=== PATIENT | female | born 1945 ===

== ENCOUNTER 2020-08-27 09:10 | Outpatient (REF) | payer OTHER, SELFPAY ==
[2020-08-27 10:49] LABS: Glucose Urine UA NEG (NEG); Leukocyte Esterase Urine NEG (NEG); Nitrite Urine NEG (NEG); PH 7.5 (5.0-8.0); Urine Blood NEG (NEG); Urine Ketones NEG (NEG); Urine Protein NEG (NEG-TRACE)
[2020-08-27 10:53] LABS: Appearance Urine CLEAR; Color Urine YELLOW; Creatinine Urine 15.82 mg/dL; Microalbumin Urine < 5.0 mg/L; UACC CULT NO; UACC Culture Trigger NO
[2020-08-27 10:56] LABS: Alanine Aminotransferase 21 U/L (0-31); Albumin Level 4.3 g/dL (3.5-5.0); Alkaline Phosphatase 69 U/L (39-117); Anion Gap 12 (12-20); Aspartate Amino Transferase 20 U/L (5-31); Bilirubin Total 0.8 mg/dL (0.0-1.0); Blood Urea Nitrogen 15 mg/dL (9-16); Calcium 9.3 mg/dL (8.4-10.2); Carbon Dioxide 29 mmol/L (22-29); Chloride 101 mmol/L (96-108); Cholesterol 138 mg/dL; Estimated Glomerular Filt Rate 49; Glucose Fasting 113 mg/dL (60-99); HDL Cholesterol 65 mg/dL; LDL Cholesterol Calculated 59 mg/dl; Potassium 5.4 mmol/l (3.3-5.1); Sodium 137 mmol/L (135-145); Total Protein 7.1 g/dL (6.5-8.0); Triglycerides 70 mg/dL
[2020-08-27 11:05] LABS: RBC Urine 0 /HPF (0); WBC Urine 0 /HPF (0-4)
[2020-08-27 11:17] LABS: TSH reflex Free T4 2.02 mIU/mL (0.32-4.0)
== END 2020-08-27 09:11 | disposition home or self-care (01) ==
LOC: HO.LNP 09:10
PROVIDERS: Visit Provider Internal Medicine
DX: E78.00 Pure hypercholesterolemia, unspecified (principal); I10 Essential (primary) hypertension; E11.9 Type 2 diabetes mellitus without complications; I42.9 Cardiomyopathy, unspecified; I87.303 Chronic venous hypertension (idiopathic) without complications of bilateral lower extremity; I70.1 Atherosclerosis of renal artery; I87.2 Venous insufficiency (chronic) (peripheral); E66.9 Obesity, unspecified
CPT/HCPCS: 36415; 80053; 80061; 81001; 82043; 83036; 83880; 84443; 85025

== ENCOUNTER 2020-11-23 07:31 | Outpatient (REF) | payer OTHER, SELFPAY ==
[2020-11-23 08:41] LABS: Basophils Percent Auto 0.5 % (0-2); Eosinophils Percent Auto 0.2 % (0-4); Glucose Urine UA NEG (NEG); Hematocrit 35.7 % (37-47); Hemoglobin 11.5 g/dl (12.0-16.0); Imm Gran Abs Auto 0.05 X10*3/uL (0.00-0.03); Imm Gran Pct Auto 1.2 % (0.0-0.4); Leukocyte Esterase Urine NEG (NEG); Lymphocytes Absolute Auto 0.9 X10*3/uL (1.2-4.9); Lymphocytes Percent Auto 22.2 % (20-40); MANUAL DIFF FLAG SCAN; Mean Corpuscular HGB Conc 32.2 g/dl (31.0-35.0); Mean Corpuscular Volume 89.9 fL (80-98); Mean Platelet Volume 10.8 fL (9.4-12.3); Monocytes Absolute Auto 0.4 X10*3/uL (0.1-1.2); Monocytes Percent Auto 10.2 % (2-11); Neutrophils Absolute Auto 2.8 X10*3/uL (2.0-8.3); Neutrophils Percent Auto 65.7 % (45-73); Nitrite Urine NEG (NEG); Platelet Count 285 X10*3/uL (160-400); Red Blood Count 3.97 X10*6/uL (4.20-5.50); Red Cell Distribution Width 14.8 % (11.0-16.0); SCAN SMEAR FLAG 1; Urine Blood TRACE (NEG); Urine Ketones NEG (NEG); Urine Protein TRACE MG/DL (NEG-TRACE); White Blood Count 4.2 X10*3/uL (4.8-10.8)
[2020-11-23 08:44] LABS: Appearance Urine HAZY; Color Urine YELLOW
[2020-11-23 09:00] LABS: Bacteria Urine TRACE /LPF; Hyaline Casts Urine 0-2 /LPF; Mucus Urine 1+ /LPF; RBC Urine 0-2 /HPF (0); Squamous Epithelial Cell Urine 1+ /LPF
[2020-11-23 09:04] LABS: Alanine Aminotransferase 39 U/L (0-31); Alkaline Phosphatase 74 U/L (39-117); Anion Gap 15 (12-20); Aspartate Amino Transferase 36 U/L (5-31); Bilirubin Total 1.2 mg/dL (0.0-1.0); Blood Urea Nitrogen 20 mg/dL (9-16); Calcium 9.2 mg/dL (8.4-10.2); Carbon Dioxide 26 mmol/L (22-29); Chloride 99 mmol/L (96-108); Cholesterol 116 mg/dL; Estimated Glomerular Filt Rate 50; Glucose Fasting 120 mg/dL (60-99); HDL Cholesterol 47 mg/dL; LDL Cholesterol Calculated 53 mg/dl; Potassium 5.2 mmol/L (3.3-5.1); Sodium 135 mmol/L (135-145); Total Protein 7.1 g/dL (6.5-8.0); Triglycerides 81 mg/dL
[2020-11-23 09:07] LABS: Anion Gap 14 (12-20); Blood Urea Nitrogen 20 mg/dL (9-16); Calcium 9.2 mg/dL (8.4-10.2); Carbon Dioxide 26 mmol/L (22-29); Chloride 99 mmol/L (96-108); Estimated Glomerular Filt Rate 49; Phosphorus 3.4 mg/dL (2.7-4.5); Potassium 5.4 mmol/L (3.3-5.1); Sodium 134 mmol/L (135-145)
[2020-11-23 09:08] LABS: B Type Natriuretic Peptide 66 pg/mL (<100); Microalbum/Creatinine Ratio Ur 49.1 ug/mg cr
[2020-11-23 09:28] LABS: TSH reflex Free T4 1.92 uIU/mL (0.32-4.0)
[2020-11-23 09:29] LABS: SLIDE REVIEW VERIFIED
[2020-11-23 10:36] LABS: Renal w Reflex Lab Use Only Order verified
== END 2020-11-23 07:32 | disposition home or self-care (01) ==
LOC: HO.LAB 07:31
PROVIDERS: PCP Internal Medicine; Referring Provider Internal Medicine Nephrology; Visit Provider Internal Medicine
DX: I10 Essential (primary) hypertension (principal); E87.5 Hyperkalemia; I70.1 Atherosclerosis of renal artery; R60.9 Edema, unspecified; E11.9 Type 2 diabetes mellitus without complications; I87.303 Chronic venous hypertension (idiopathic) without complications of bilateral lower extremity; I87.2 Venous insufficiency (chronic) (peripheral); I42.9 Cardiomyopathy, unspecified; E78.00 Pure hypercholesterolemia, unspecified; E66.9 Obesity, unspecified
CPT/HCPCS: 36415; 80051; 80053; 80061; 81001; 82043; 82310; 82565; 83880; 84100; 84443; 84520; 85025

== ENCOUNTER 2020-11-27 09:52 | Emergency (ER) | payer OTHER, SELFPAY ==
--- NOTE | ~2020-11-27 | CT_ITS ---
EXAMINATION: CT ABDOMEN AND PELVIS WITH CONTRAST CLINICAL INFORMATION: Left-sided abdominal pain. Diarrhea. COMPARISON: CTA 04/17/2019 TECHNIQUE: Multidetector volumetric images were obtained from the superior aspect of the liver through the pubic symphysis following administration 85 mL of Omnipaque 350 intravenous contrast. Sagittal and coronal reformatted images were obtained on the technologist's workstation. Oral contrast: No This CT examination was performed using dose optimization techniques as appropriate, variously including the following: *Automated exposure control *Adjustment of mA and/or kV according to patient size (this includes techniques or standardized protocols for targeted exams where dose is matched to indication/reason for exam; i.e. extremities or head) *Use of iterative reconstruction technique DLP: 686 mGy-cm FINDINGS: LUNG BASES: Multifocal patchy and nodular groundglass opacities and areas of consolidation consistent with pneumonia. Atypical/viral pneumonia is a concern. Coronary artery disease. Biopsy clips in the left breast. LIVER, GALLBLADDER, AND BILIARY TREE: Stable small cysts and granulomata. Status post cholecystectomy. Stable postoperative prominence of the common duct. No intrahepatic biliary ductal dilation. PANCREAS: Uniform pancreatic enhancement without ductal dilation, mass or inflammation. SPLEEN: Small stable accessory spleens again noted. ADRENAL GLANDS: There is a stable 2.2 cm left adrenal mass with enhancement. The right adrenal gland is normal. KIDNEYS AND URETERS: Stable prominence of the renal pelves and ureters bilaterally. Stable minor fullness of the right intrarenal collecting structures. Suspect reflux with distended bladder. No calculi. The kidneys are symmetrically functioning. Subcentimeter hypodensities most consistent with cysts and unchanged. Mild left renal cortical atrophy again noted, likely renal vascular in etiology. Stable minor perinephric fat stranding without collection. BLADDER: The bladder is distended with urine but otherwise unremarkable. The distal ureters are normal in appearance. GASTROINTESTINAL TRACT: There is mild sigmoid predominant left-sided diverticulosis. No evidence for diverticulitis. No acute colitis seen. Normal appendix in the right lower quadrant. Normal terminal ileum. Nonobstructive gas pattern. Normal stomach and esophagus. No free peritoneal air. No free fluid. ABDOMINAL WALL: Mild midline eventration without hernia. Injection granulomata in the flanks. LYMPH NODES: Normal. VASCULAR: There is a 2.5 cm anterior infrarenal abdominal aortic aneurysm. This is slightly increased in size compared with 2019, measuring just under 3 cm in length. There is increased thrombosis of this saccular aneurysm. The celiac, SMA and MIS all appear to enhance normally. No rich peritoneal hemorrhage seen. PELVIC VISCERA: Stable retroversion of the uterus. No adnexal mass. Coarse calcification again seen in the right ovary. Probable uterine fundal fibroid. No pelvic free fluid or lymphadenopathy. OSSEOUS STRUCTURES: Patchy demineralization. No acute osseous abnormality. Degenerative changes in the spine. CT/CT abdomen pelvis w con IMPRESSION: Multifocal ill-defined groundglass and consolidative opacities in the periphery of the lower lungs consistent with atypical/viral pneumonia. By report the patient is COVID positive. Left diverticulosis without diverticulitis. Chronic mild left renal atrophy without hydronephrosis. Chronic bilateral mild ureteral and pelvic prominence without progression. Suspect that reflux given distended bladder. Slight increase in size of saccular infrarenal abdominal aortic aneurysm, now measuring 2.5 cm in sagittal dimension, with increasing thrombosis. Mesenteric vessels appear to enhance normally. No rich cranial hemorrhage. Fibroid uterus. Cholecystectomy. This critical result was discussed with Dr. Monzon at 3:40 PM on 11/27/2020 and it was ascertained that the content and urgency of the report was understood at the time of direct communication.
[2020-11-27 09:56] VITALS: BP 189/86; PULSE 98; RESP 18; TEMP 36.1; O2SAT 98; BMI 33.4
--- NOTE | 2020-11-27 10:15 | ED.NAVMDI ---
HPI - Nausea/Vomiting/Diarrhea General Chief complaint: Nausea/Vomiting/Diarrhea Stated complaint: L UPPER ABD PAIN Time Seen by Provider: 11/27/20 10:07 Source: patient and EMS Mode of arrival: EMS Limitations: no limitations History of Present Illness HPI Narrative: 75 yo female with hx of DM, HPL, cardiomyopathy, long standing GI illness comes to ED today with epigastric and LUQ pain x 9 days with 4 to 6 loose mucousy stools per day, all started after her [employer] cooked her a meal, denies recent antibiotics, no prior episodes per the patient MD elicited complaint: diarrhea and abdominal pain Onset (ago): day(s) (9) Associated nausea: No Associated abdominal pain: Yes Location of pain: epigastric and LUQ Pain consistency: intermittent and colicky Severity: moderate Quality: cramping Exacerbating factors: eating Relieving factors: none Context: possible food poisoning Associated symptoms: loss of appetite and malaise Treatment prior to arrival: other (tried myl[place]) Related Data Home Medications Medication Instructions Recorded Confirmed acetaminophen 500 mg tablet 500 mg PO .TWICE A DAY PRN tab 08/16/20 09/19/20 alprazolam 0.5 mg tablet 0.5 mg PO BID PRN 08/16/20 09/19/20 aluminum-mag hydroxide-simethicone 10 ml PO ONCE PRN ml 08/16/20 09/19/20 200 mg-200 mg-20 mg/5 mL oral susp atorvastatin 80 mg tablet 80 mg PO DAILY 08/16/20 09/19/20 buspirone 7.5 mg tablet 7.5 mg PO DAILY 08/16/20 09/19/20 metformin 500 mg tablet mg PO 08/16/20 09/19/20 nystatin 100,000 unit/gram topical TOPICAL 08/16/20 09/19/20 powder sennosides 8.6 mg tablet 17.2 mg PO DAILY 08/16/20 09/19/20 lancets 33 gauge #100 ea 08/31/20 08/31/20 carvedilol 12.5 mg tablet 12.5 mg PO BID 09/20/20 chlorthalidone 25 mg tablet 25 mg PO QAM 10/26/20 Previous Rx's Medication Instructions Recorded blood sugar diagnostic #100 ea 08/10/20 carvedilol 6.25 mg tablet 6.25 mg PO BID #60 tab 10/24/20 pantoprazole 40 mg tablet,delayed 40 mg PO DAILY #90 tab 10/24/20 release losartan 100 mg tablet 100 mg PO DAILY #90 tab 11/01/20 clotrimazole-betamethasone 1 1 appl TOPICAL BID PRN #30 g 11/12/20 %-0.05 % topical cream rosuvastatin 40 mg tablet 40 mg PO DAILY #30 tab 11/23/20 sitagliptin 100 mg tablet 100 mg PO DAILY #90 tab 11/24/20 dexamethasone 6 mg PO DAILY 5 Days #5 tab 11/27/20 ondansetron 4 mg PO Q8H PRN #20 tab 11/27/20 Allergies Allergy/AdvReac Type Severity Reaction Status Date / Time aspirin [Aspirin] Allergy Severe MOUTH Verified 10/26/20 15:24 SWELLING hydrochlorothiazide Allergy Intermediate DROP IN Verified 10/26/20 15:24 [Hydrochlorothiazide] BLOOD PRESSURE Penicillins [PENICILLINS] Allergy Intermediate ITCHING Verified 10/26/20 15:24 caffeine [Caffeine] Allergy Mild NERVOUSNESS Verified 10/26/20 15:24 lisinopril [Lisinopril] Allergy Mild CHANGES IN Verified 10/26/20 15:24 BLOOD PRESSURE ranitidine [RANITIDINE] Allergy Mild HEADACHE Verified 10/26/20 15:24 amlodipine [AMLODIPINE] Allergy Unknown UNKNOWN Verified 10/26/20 15:24 amoxicillin Allergy Unknown itching, Verified 10/26/20 15:24 severe with rash diclofenac Allergy Unknown Unknown Verified 10/26/20 15:24 escitalopram Allergy Unknown abdominal Verified 10/26/20 15:24 discomfort, drowsiness esomeprazole [Nexium] Allergy Unknown Unknown Verified 10/26/20 15:24 isosorbide [ISOSORBIDE] Allergy Unknown UNKNOWN Verified 10/26/20 15:24 lidocaine [Lidoderm] Allergy Unknown weakness Verified 10/26/20 15:24 mirtazapine Allergy Unknown Unknown Verified 10/26/20 15:24 nystatin Allergy Unknown rash Verified 10/26/20 15:24 penicillin V Allergy Unknown Itching, Verified 10/26/20 15:24 rash all over body sertraline [SERTRALINE] Allergy Unknown UNKNOWN Verified 10/26/20 15:24 dexlansoprazole AdvReac Severe AGITATION Verified 10/26/20 15:24 [From DEXILANT] hydrocortisone AdvReac Mild RAISES Verified 10/26/20 15:24 [From Cortizone-10] BLOOD SUGAR topiramate [From TOPAMAX] AdvReac Unknown AGITATION Verified 10/26/20 15:24 DEXITANT Allergy Unknown CHEST PAIN Uncoded 08/31/20 11:27 From PLAVIX Allergy Unknown PT UNSURE Uncoded 08/31/20 11:27 OF REACTION Medical tape Allergy Unknown Rash Uncoded 08/31/20 11:27 Review of Systems Review of Systems: Constitutional : No Weight loss, No Fever, No Chills ENT/Mouth : No sore throat, No Rhinorrhea Eyes: No Swelling, No Redness Cardiovascular : No Chest Pain, No SOB, NoEdema Respiratory : No Cough, No Sputum, No Wheezing Gastrointestinal : Positive Nausea, no Vomiting, positive Diarrhea, positive abdominal Pain, No Hematochezia, No Melena Genitourinary : No Dysuria, No Urinary Frequency, No Hematuria, No Urgency Musculoskeletal : No joint pain, No Myalgias, No Joint Swelling Skin : No Skin Lesions, No rash Neuro : No Weakness, No Numbness, No Dizziness, No Headache Psych : No Anxiety/Panic, No Depression Heme/Lymph: No Bruising, No Lymphadenopathy Endocrine : No Polyuria, No Polydipsia All other systems reviewed and are negative. Gastrointestinal: Gastrointestinal: Denies nausea PMFSH Past Medical History Attestation statement: The following information was validated with the patient. Medical History Anxiety Benign essential hypertension Cardiomyopathy Conjunctival hemorrhage of right eye Depression 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 Hyperkalemia Obesity (BMI 30-39.9) Pure hypercholesterolemia Renal artery stenosis Stasis dermatitis of both legs Stasis edema of both lower extremities Surgical History History of cataract surgery History of cholecystectomy History of lumpectomy of left breast Hx of myomectomy Family History Family History Father CVD (cardiovascular disease) Myocardial infarction Mother Myocardial infarction CVD (cardiovascular disease) Brother Myocardial infarction Family/Other FH: kidney cancer FH: prostate cancer Social History Social History Alcohol intake: never Smoking Status: Never smoker Use of substances other than those prescribed or required for medical reasons: No Advance Directives: No Advance Directives Information Provided: No Physical Exam Vital Signs: Vital Signs: Last Vital Signs Temp 97 F 11/27/20 09:56 Pulse 94 11/27/20 14:20 Resp 18 11/27/20 14:20 BP 182/75 H 11/27/20 14:20 Pulse Ox 96 11/27/20 14:20 Body Mass Index 33.4 Appearance: Alert. Oriented X3. No acute distress. Eyes: Pupils equal, round and reactive to light. ENT: Pharynx normal. Neck: Normal inspection. Neck supple. CVS: Normal heart rate and rhythm. Pulses normal. Respiratory: No respiratory distress. Breath sounds normal. Abdomen: Soft and moderate epigastric and LUQ pain no rebound or guarding Skin: Skin warm and dry. Normal skin color. Normal skin turgor. Extremities: No lower extremity edema. No calf ttp Neuro: Oriented X 3. No motor deficit. No sensory deficit. Course Course Course Narrative: has WBC no nitrates but sig contamination with epi cells - denies urinary complaints to me at this time will wait for culture call from Radiology 341pm - her lung disease multiple GGO in both lungs - discussed positive COVID results, no diverticulitis or colitis no diarrhea while here, tolerating PO, no hypoxia, no resp complaints will start on dexamethasone, immodium and refer to PCP MDM - Nausea/Vomiting/Diarrhea MDM Narrative Medical decision making narrative: 75 yo female comes in with 9 days of abdominal pain and diarrhea - only c/o exposure to possible bad food at this time will need labs, CT scan for colitis, IV morphine for pain dispo per results and findings. Lab Data Result diagrams: 11/27/20 10:33 11/27/20 11:08 Labs: Lab Results 11/27/20 11/27/20 11/27/20 Range/Units 10:33 10:33 10:33 WBC 5.1 (4.8-10.8) X10*3/uL RBC 3.48 L (4.20-5.50) X10*6/uL Hgb 11.9 L (12.0-16.0) g/dl Hct 33.5 L (37-47) % MCV 96.3 D (80-98) fL MCH 34.2 H (27.0-33.0) pg MCHC 35.5 H (31.0-35.0) g/dl RDW 17.2 H (11.0-16.0) % Plt Count 304 (160-400) X10*3/uL MPV 10.5 (9.4-12.3) fL Immature Gran % (Auto) 3.1 H (0.0-0.4) % Neut % (Auto) 65.6 (45-73) % Lymph % (Auto) 19.1 L (20-40) % [place] % (Auto) 11.0 (2-11) % Eos % (Auto) 0.8 (0-4) % Baso % (Auto) 0.4 (0-2) % Lymph # (Auto) 1.0 L (1.2-4.9) X10*3/uL [place] # (Auto) 0.6 (0.1-1.2) X10*3/uL Eos # (Auto) 0.0 (0.0-0.4) X10*3/uL Baso # (Auto) 0.0 (0.0-0.2) X10*3/uL Abs Immat Gran (auto) 0.16 H (0.00-0.03) X10*3/uL Absolute Neuts (auto) 3.3 (2.0-8.3) X10*3/uL Absolute Nucleated RBC 0.000 (0.0-0.012) X10*3/uL Nucleated RBC % (auto) 0.0 (0.0-0.2) /100WBC Hold Blue Top SEE NOTE Sodium (135-145) mmol/L Potassium (3.3-5.1) mmol/L Chloride (96-108) mmol/L Carbon Dioxide (22-29) mmol/L Anion Gap (12-20) BUN (9-16) mg/dL Creatinine (0.5-1.4) mg/dL Estim Creat Clear Calc Estimated GFR Random Glucose (60-115) mg/dL Calcium (8.4-10.2) mg/dL Magnesium (1.6-2.6) mg/dL Total Bilirubin (0.0-1.0) mg/dL Direct Bilirubin (0.0-0.5) mg/dL AST (5-31) U/L ALT (0-31) U/L Alkaline Phosphatase (39-117) U/L Total Protein (6.5-8.0) g/dL Albumin (3.5-5.0) g/dL Lipase (8-78) U/L Urine Color Urine Appearance Urine pH (5.0-8.0) Ur Specific [place] (1.005-1.025) Urine Protein (NEG-TRACE) MG/DL Urine Glucose (UA) (NEG) MG/DL Urine Ketones (NEG) MG/DL Urine Blood (NEG) Urine Nitrite (NEG) Ur Leukocyte Esterase (NEG) Urine RBC (0) /HPF Urine WBC (0-4) /HPF Ur Squamous Epith Cells /LPF Ur Renal Epithelial Cell /LPF Urine Bacteria /LPF COVID-19 ([facility]) Positive A (Negative) COVID-19 Clin Com See Note 11/27/20 11/27/20 Range/Units 11:08 12:30 WBC (4.8-10.8) X10*3/uL RBC (4.20-5.50) X10*6/uL Hgb (12.0-16.0) g/dl Hct (37-47) % MCV (80-98) fL MCH (27.0-33.0) pg MCHC (31.0-35.0) g/dl RDW (11.0-16.0) % Plt Count (160-400) X10*3/uL MPV (9.4-12.3) fL Immature Gran % (Auto) (0.0-0.4) % Neut % (Auto) (45-73) % Lymph % (Auto) (20-40) % [place] % (Auto) (2-11) % Eos % (Auto) (0-4) % Baso % (Auto) (0-2) % Lymph # (Auto) (1.2-4.9) X10*3/uL [place] # (Auto) (0.1-1.2) X10*3/uL Eos # (Auto) (0.0-0.4) X10*3/uL Baso # (Auto) (0.0-0.2) X10*3/uL Abs Immat Gran (auto) (0.00-0.03) X10*3/uL Absolute Neuts (auto) (2.0-8.3) X10*3/uL Absolute Nucleated RBC (0.0-0.012) X10*3/uL Nucleated RBC % (auto) (0.0-0.2) /100WBC Hold Blue Top Sodium 137 (135-145) mmol/L Potassium 4.2 D (3.3-5.1) mmol/L Chloride 102 (96-108) mmol/L Carbon Dioxide 26 (22-29) mmol/L Anion Gap 13 (12-20) BUN 15 (9-16) mg/dL Creatinine 1.18 (0.5-1.4) mg/dL Estim Creat Clear Calc 36.7 Estimated GFR 44 Random Glucose 158 H (60-115) mg/dL Calcium 9.5 (8.4-10.2) mg/dL Magnesium 1.5 L (1.6-2.6) mg/dL Total Bilirubin 1.0 (0.0-1.0) mg/dL Direct Bilirubin 0.5 (0.0-0.5) mg/dL AST 21 D (5-31) U/L ALT 30 (0-31) U/L Alkaline Phosphatase 74 (39-117) U/L Total Protein 7.1 (6.5-8.0) g/dL Albumin 4.0 (3.5-5.0) g/dL Lipase 28 (8-78) U/L Urine Color YELLOW Urine Appearance HAZY Urine pH 6.5 (5.0-8.0) Ur Specific [place] <= 1.005 (1.005-1.025) Urine Protein NEG (NEG-TRACE) MG/DL Urine Glucose (UA) NEG (NEG) MG/DL Urine Ketones NEG (NEG) MG/DL Urine Blood 1+ H (NEG) Urine Nitrite NEG (NEG) Ur Leukocyte Esterase 3+ H (NEG) Urine RBC 1-4 (0) /HPF Urine WBC 30-49 H (0-4) /HPF Ur Squamous Epith Cells 2+ /LPF Ur Renal Epithelial Cell 3+ /LPF Urine Bacteria TRACE /LPF COVID-19 ([facility]) (Negative) COVID-19 Clin Com Discharge Plan Discharge Clinical Impression: Pneumonia due to COVID-19 virus Diarrhea Qualifiers: Diarrhea type: unspecified type Qualified Code(s): R19.7 - Diarrhea, unspecified Patient Disposition: Home, Self-Care Instructions: Acute Diarrhea (ED), Nutrition Tips for Relief of Diarrhea (ED), COVID-19 (Coronavirus Disease 2019) (ED) Additional Instructions: return to ED for any worsening symptoms or concerns monitor your breathing if you have any trouble please come back to ED, monitor blood sugars they will elevate will steroids, we are giving you steroids for the next 5 days you CAN TAKE IMMODIUM OVER THE COUNTER TO HELP WITH YOUR DIARRHEA - TAKE PRESCRIBED Prescriptions: New dexamethasone 6 mg tablet 6 mg PO DAILY 5 Days Qty: 5 RF: 0 ondansetron 4 mg tablet,disintegrating 4 mg PO Q8H PRN (Reason: nausea and vomiting) Qty: 20 RF: 0 No Action (DME) OneTouch Ultra Blue Test Strip Strip See Rx Instructions .ROUTE .MEDSUPPLY Qty: 100 RF: 12 carvedilol 12.5 mg tablet 12.5 mg PO BID RF: 0 pantoprazole 40 mg tablet,delayed release (DR/EC) 40 mg PO DAILY Qty: 90 RF: 0 carvedilol 6.25 mg tablet 6.25 mg PO BID Qty: 60 RF: 0 losartan 100 mg tablet 100 mg PO DAILY Qty: 90 RF: 0 clotrimazole-betamethasone 1-0.05 % cream 1 appl topical BID PRN (Reason: dermatitis ) Qty: 30 RF: 3 rosuvastatin 40 mg tablet 40 mg PO DAILY Qty: 30 RF: 1 sitagliptin [Januvia] 100 mg tablet 100 mg PO DAILY Qty: 90 RF: 1 buspirone 7.5 mg tablet 7.5 mg PO DAILY RF: 0 alprazolam 0.5 mg tablet 0.5 mg PO BID PRNRF: 0 nystatin 100,000 unit/gram powder topical RF: 0 atorvastatin 80 mg tablet 80 mg PO DAILY RF: 0 sennosides 8.6 mg tablet 17.2 mg PO DAILY RF: 0 metformin 500 mg tablet PO RF: 0 acetaminophen [Tylenol Extra Strength] 500 mg tablet 500 mg PO .TWICE A DAY PRNRF: 0 alum-mag hydroxide-simeth 200-200-20 mg/5 mL suspension 10 ml PO ONCE PRNRF: 0 (DME) lancets 33 gauge misc See Rx Instructions gauge .ROUTE .MEDSUPPLY Qty: 100 RF: 0
[2020-11-27 10:43] LABS: Basophils Percent Auto 0.4 % (0-2); Eosinophils Percent Auto 0.8 % (0-4); Hematocrit 33.5 % (37-47); Hemoglobin 11.9 g/dl (12.0-16.0); Imm Gran Abs Auto 0.16 X10*3/uL (0.00-0.03); Imm Gran Pct Auto 3.1 % (0.0-0.4); Lymphocytes Percent Auto 19.1 % (20-40); MANUAL DIFF FLAG NO; Mean Corpuscular HGB Conc 35.5 g/dl (31.0-35.0); Mean Corpuscular Hemoglobin 34.2 pg (27.0-33.0); Mean Corpuscular Volume 96.3 fL (80-98); Mean Platelet Volume 10.5 fL (9.4-12.3); Monocytes Absolute Auto 0.6 X10*3/uL (0.1-1.2); Neutrophils Absolute Auto 3.3 X10*3/uL (2.0-8.3); Neutrophils Percent Auto 65.6 % (45-73); Platelet Count 304 X10*3/uL (160-400); Red Blood Count 3.48 X10*6/uL (4.20-5.50); Red Cell Distribution Width 17.2 % (11.0-16.0); White Blood Count 5.1 X10*3/uL (4.8-10.8)
[2020-11-27 10:57] LABS: COVID-19 Test Positive (Negative); IDNOW Serial# 9DD0AD1C
[2020-11-27] MEDS: ondansetron HCL 4 MG/2 ML VIAL IVPUSH (11:11)
[2020-11-27] MEDS: Morphine Sulfate 4 MG/ML CARTRIDGE IVPUSH (11:11)
[2020-11-27] MEDS: 0.9 % Sodium Chloride 1,000 ML 999 ML IVCONT (11:11)
--- NOTE | 2020-11-27 11:13 | PC.NURSE ---
report taken from trupti gramajo pt here for abd pain, moved into isolation d/t +covid results. pt has been medicated per emar w blood labs obtained and sent. esau.
[2020-11-27 11:47] LABS: Alanine Aminotransferase 30 U/L (0-31); Alkaline Phosphatase 74 U/L (39-117); Anion Gap 13 (12-20); Aspartate Amino Transferase 21 U/L (5-31); Bilirubin Direct 0.5 mg/dL (0.0-0.5); Blood Urea Nitrogen 15 mg/dL (9-16); Calcium 9.5 mg/dL (8.4-10.2); Carbon Dioxide 26 mmol/L (22-29); Chloride 102 mmol/L (96-108); Creatinine Clr Calc Pharmacy 36.7; Estimated Glomerular Filt Rate 44; Glucose Random 158 mg/dL (60-115); Lipase 28 U/L (8-78); Magnesium 1.5 mg/dL (1.6-2.6); Potassium 4.2 mmol/L (3.3-5.1); Sodium 137 mmol/L (135-145); Total Protein 7.1 g/dL (6.5-8.0)
[2020-11-27] MEDS: Magnesium Sulfate/H2O 2 GM/50 ML PIGGYBACK IV (12:03)
--- NOTE | 2020-11-27 12:05 | PC.NURSE ---
iv fluids infusing. medicated further per emar. given water per request. tolerating po w/o issue.
--- NOTE | 2020-11-27 12:32 | PC.NURSE ---
pt assisted w bed lopez, ua spec obtained and sent.
[2020-11-27 12:39] LABS: Glucose Urine UA NEG (NEG); Leukocyte Esterase Urine 3+ (NEG); Nitrite Urine NEG (NEG); PH 6.5 (5.0-8.0); Specific Gravity - Urine <= 1.005 (1.005-1.025); UACC Culture Trigger YES; Urine Blood 1+ (NEG); Urine Ketones NEG (NEG); Urine Protein NEG (NEG-TRACE)
[2020-11-27 12:41] LABS: Appearance Urine HAZY; Color Urine YELLOW
[2020-11-27 12:48] LABS: Bacteria Urine TRACE /LPF; Renal Epithelial Cells Urine 3+ /LPF; Squamous Epithelial Cell Urine 2+ /LPF; WBC Urine 30-49 /HPF (0-4)
[2020-11-27 14:20] VITALS: BP 182/75; PULSE 94; RESP 18; O2SAT 96
[2020-11-27] MEDS: iohexoL 350 MG/ML 100 ML INFUS..BTL IV ×2 (14:58→15:19)
== END 2020-11-27 17:17 | disposition home or self-care (01) ==
PROVIDERS: Emergency Provider Emergency Medicine; PCP Internal Medicine
DX: U07.1 COVID-19 (principal); J12.82 Pneumonia due to coronavirus disease 2019; R10.12 Left upper quadrant pain; R19.7 Diarrhea, unspecified; Z79.899 Other long term (current) drug therapy
CPT/HCPCS: 36415; 74177; 80048; 80076; 81001; 81003; 83690; 83735; 85025; 87086; 87635; 96361; 96365; 96375; 99284; J2270; J2405; J3475; Q9967

== ENCOUNTER → 2020-12-13 10:48 | Outpatient (BNVA) | payer OTHER, SELFPAY | PROVIDERS: PCP Internal Medicine; Referring Provider Internal Medicine; Visit Provider Internal Medicine Gastroenterology | CPT/HCPCS: Q3014 ==

== ENCOUNTER 2021-01-29 07:51 | Outpatient (REF) | payer OTHER, SELFPAY ==
[2021-01-29 09:18] LABS: Basophils Percent Auto 0.3 % (0-2); Eosinophils Percent Auto 0.3 % (0-4); Hematocrit 36.2 % (37-47); Hemoglobin 11.4 g/dl (12.0-16.0); Imm Gran Abs Auto 0.05 X10*3/uL (0.00-0.03); Imm Gran Pct Auto 1.5 % (0.0-0.4); Lymphocytes Absolute Auto 0.6 X10*3/uL (1.2-4.9); MANUAL DIFF FLAG SCAN; Mean Corpuscular HGB Conc 31.5 g/dl (31.0-35.0); Mean Corpuscular Hemoglobin 28.5 pg (27.0-33.0); Mean Corpuscular Volume 90.5 fL (80-98); Mean Platelet Volume 11.7 fL (9.4-12.3); Monocytes Absolute Auto 0.5 X10*3/uL (0.1-1.2); Monocytes Percent Auto 14.6 % (2-11); Neutrophils Absolute Auto 2.1 X10*3/uL (2.0-8.3); Neutrophils Percent Auto 66.3 % (45-73); Platelet Count 203 X10*3/uL (160-400); Red Cell Distribution Width 16.1 % (11.0-16.0); SCAN SMEAR FLAG 1; White Blood Count 3.2 X10*3/uL (4.8-10.8)
[2021-01-29 09:36] LABS: Estimated Average Glucose 189 mg/dL; Hemoglobin A1c % 8.2 %
[2021-01-29 09:50] LABS: Alanine Aminotransferase 23 U/L (0-31); Alkaline Phosphatase 59 U/L (39-117); Anion Gap 16 (12-20); Aspartate Amino Transferase 23 U/L (5-31); Bilirubin Total 1.5 mg/dL (0.0-1.0); Blood Urea Nitrogen 13 mg/dL (9-16); Calcium 9.4 mg/dL (8.4-10.2); Carbon Dioxide 23 mmol/L (22-29); Chloride 101 mmol/L (96-108); Cholesterol 131 mg/dL; Estimated Glomerular Filt Rate 38; Glucose Fasting 147 mg/dL (60-99); HDL Cholesterol 59 mg/dL; LDL Cholesterol Calculated 54 mg/dl; Potassium 4.5 mmol/L (3.3-5.1); Sodium 135 mmol/L (135-145); Total Protein 6.7 g/dL (6.5-8.0); Triglycerides 91 mg/dL
[2021-01-29 10:20] LABS: SLIDE REVIEW VERIFIED
== END 2021-01-29 07:52 | disposition home or self-care (01) ==
LOC: HO.LAB 07:51
PROVIDERS: PCP Internal Medicine; Visit Provider Internal Medicine
DX: E11.9 Type 2 diabetes mellitus without complications (principal); E78.00 Pure hypercholesterolemia, unspecified; I10 Essential (primary) hypertension; I70.1 Atherosclerosis of renal artery; I42.9 Cardiomyopathy, unspecified; E87.5 Hyperkalemia
CPT/HCPCS: 36415; 80053; 80061; 83036; 85025

== ENCOUNTER 2021-01-31 05:30 | Outpatient (REF) | payer OTHER, SELFPAY ==
[2021-01-31 10:25] LABS: Glucose Urine UA NEG (NEG); Leukocyte Esterase Urine TRACE (NEG); Nitrite Urine NEG (NEG); PH 6.5 (5.0-8.0); UACC Culture Trigger YES; Urine Blood 2+ (NEG); Urine Ketones NEG (NEG); Urine Protein 1+ MG/DL (NEG-TRACE)
[2021-01-31 10:48] LABS: Appearance Urine CLEAR; Color Urine STRAW
[2021-01-31 10:58] LABS: WBC Urine 0-2 /HPF (0-4)
[2021-01-31 10:59] LABS: RBC Urine 0 /HPF (0); Renal Epithelial Cells Urine TRACE /LPF; Squamous Epithelial Cell Urine TRACE /LPF
[2021-01-31 11:21] LABS: Creatinine Urine 38.18 mg/dL; Microalbum/Creatinine Ratio Ur 225.2 ug/mg cr
== END 2021-01-31 05:31 | disposition home or self-care (01) ==
LOC: HO.LNP 05:30
PROVIDERS: Visit Provider Internal Medicine
DX: E11.9 Type 2 diabetes mellitus without complications (principal); I10 Essential (primary) hypertension; I70.1 Atherosclerosis of renal artery
CPT/HCPCS: 81001; 81003; 82043; 87086

== ENCOUNTER → 2021-02-17 12:21 | Outpatient (BNVA) | payer OTHER, SELFPAY | PROVIDERS: PCP Internal Medicine; Visit Provider Internal Medicine | DX: I42.8 Other cardiomyopathies (principal); I44.7 Left bundle-branch block, unspecified; I10 Essential (primary) hypertension; Z79.899 Other long term (current) drug therapy | CPT/HCPCS: 99212 ==

== ENCOUNTER 2021-02-22 07:14 | Inpatient (IN) | payer OTHER, SELFPAY ==
[2021-02-22] VITALS (9 sets, daily range): BP systolic 118–164; BP diastolic 55–90; PULSE 72–94; RESP 15–18; TEMP 36.1–36.5; O2SAT 98; BMI 33.3
--- NOTE | ~2021-02-22 | XR_ITS ---
EXAMINATION: XR CHEST CLINICAL INFORMATION: Weakness COMPARISON: Chest radiographs 05/29/2020, 07/21/2019 TECHNIQUE: Portable upright AP view of the chest was obtained. FINDINGS: The lungs are clear. The vascularity is normal. There is no airspace consolidation or effusion. The heart is within limits of normal size. The hilar and mediastinal contours and bony structures are stable. XR/XR chest 1V IMPRESSION: Unremarkable examination.
--- NOTE | 2021-02-22 07:32 | ECG_ITS ---
Test Reason : HTN Blood Pressure : / mmHG Vent. Rate : 074 BPM Atrial Rate : 074 BPM P-R Int : 148 ms QRS Dur : 156 ms QT Int : 434 ms P-R-T Axes : 049 -32 056 degrees QTc Int : 481 ms Normal sinus rhythm Left axis deviation Left bundle branch block Abnormal ECG When compared with ECG of 29-MAY-2020 15:48, T wave inversion more evident in Lateral leads Referred By: Carie Monzon Electronically Signed By:SHYANN LIZ
--- NOTE | 2021-02-22 07:34 | ED_ITS ---
HPI - General Adult General Chief complaint: General Medical Stated complaint: NOT FEELING WELL Time Seen by Provider: 02/22/21 07:32 Source: patient, EMS and old records reviewed Mode of arrival: EMS Limitations: no limitations History of Present Illness HPI narrative: 75 yo female with HTN, renal artery stenosis, anxiety, nonischemic cardiomyopathy notes that since her kitchen assistant started her on chlorthalidone 25mg daily she feels nauseated and dizzy when her BP goes from 104/60 to 98/50 then she has to lay down until it goes away. She stopped taking it but noted her BP was high overnight so she took her carvedilol 12.5mg which was decreased to 6.5mg BID after c/o dizziness since chlorthalidone to get rid of her LE edema. MD complaint: nausea, weakness, fluctuating blood pressures Onset (ago): day(s) (4) Radiation: non-radiation Severity: mild Quality: dull Relieving factors: none Exacerbating factors: medication (thinks her chlorthalidone 25mg that is new causes all these symptoms) Associated symptoms: loss of appetite, malaise, nausea/vomiting and other (dizziness) Treatments prior to arrival: none Related Data Home Medications Medication Instructions Recorded Confirmed acetaminophen 500 mg tablet 500 mg PO .TWICE A DAY PRN tab 08/16/20 02/17/21 alprazolam 0.5 mg tablet 0.5 mg PO BID PRN 08/16/20 02/17/21 aluminum-mag hydroxide-simethicone 10 ml PO ONCE PRN ml 08/16/20 02/17/21 200 mg-200 mg-20 mg/5 mL oral susp buspirone 7.5 mg tablet 7.5 mg PO DAILY 08/16/20 02/17/21 lancets 33 gauge #100 ea 08/31/20 02/17/21 chlorthalidone 25 mg tablet 25 mg PO QAM 10/26/20 02/17/21 furosemide 20 mg tablet 20 mg PO QAM PRN 12/03/20 02/17/21 lancets 30 gauge #100 ea 12/03/20 02/17/21 nystatin 100,000 unit/gram topical 1 appl TOPICAL TID g 12/03/20 02/17/21 powder ciclopirox 0.77 % topical cream appl TOPICAL 02/01/21 02/17/21 Previous Rx's Medication Instructions Recorded blood sugar diagnostic #100 ea 08/10/20 sitagliptin 100 mg tablet 100 mg PO DAILY #90 tab 11/24/20 dexamethasone 6 mg PO DAILY 5 Days #5 tab 11/27/20 ondansetron 4 mg PO Q8H PRN #20 tab 11/27/20 metformin 500 mg tablet 1,000 mg PO BID #360 tab 01/09/21 pantoprazole 40 mg tablet,delayed 40 mg PO DAILY #90 tab 01/15/21 release losartan 100 mg tablet 100 mg PO DAILY #90 tab 01/16/21 sennosides 8.6 mg tablet 17.2 mg PO DAILY PRN 30 Days #60 01/21/21 tab clotrimazole-betamethasone 1 1 appl TOPICAL BID PRN #30 g 01/28/21 %-0.05 % topical cream carvedilol 6.25 mg tablet 6.25 mg PO BID #180 tab 01/30/21 ADULT PULL-UPS -- LARGE size #100 ea 02/01/21 carvedilol 12.5 mg tablet 12.5 mg PO BID 30 Days #60 tab 02/01/21 rosuvastatin 40 mg tablet 40 mg PO DAILY #90 tab 02/15/21 Allergies Allergy/AdvReac Type Severity Reaction Status Date / Time aspirin [Aspirin] Allergy Severe MOUTH Verified 02/17/21 12:46 SWELLING hydrochlorothiazide Allergy Intermediate DROP IN Verified 02/17/21 12:46 [Hydrochlorothiazide] BLOOD PRESSURE Penicillins [PENICILLINS] Allergy Intermediate ITCHING Verified 02/17/21 12:46 caffeine [Caffeine] Allergy Mild NERVOUSNESS Verified 02/17/21 12:46 lisinopril [Lisinopril] Allergy Mild CHANGES IN Verified 02/17/21 12:46 BLOOD PRESSURE ranitidine [RANITIDINE] Allergy Mild HEADACHE Verified 02/17/21 12:46 amlodipine [AMLODIPINE] Allergy Unknown UNKNOWN Verified 02/17/21 12:46 amoxicillin Allergy Unknown itching, Verified 02/17/21 12:46 severe with rash diclofenac Allergy Unknown Unknown Verified 02/17/21 12:46 escitalopram Allergy Unknown abdominal Verified 02/17/21 12:46 discomfort, drowsiness esomeprazole [Nexium] Allergy Unknown Unknown Verified 02/17/21 12:46 isosorbide [ISOSORBIDE] Allergy Unknown UNKNOWN Verified 02/17/21 12:46 lidocaine [Lidoderm] Allergy Unknown weakness Verified 02/17/21 12:46 mirtazapine Allergy Unknown Unknown Verified 02/17/21 12:46 nystatin Allergy Unknown rash Verified 02/17/21 12:46 penicillin V Allergy Unknown Itching, Verified 02/17/21 12:46 rash all over body sertraline [SERTRALINE] Allergy Unknown UNKNOWN Verified 02/17/21 12:46 dexlansoprazole AdvReac Severe AGITATION Verified 02/17/21 12:46 [From DEXILANT] hydrocortisone AdvReac Mild RAISES Verified 02/17/21 12:46 [From Cortizone-10] BLOOD SUGAR topiramate [From TOPAMAX] AdvReac Unknown AGITATION Verified 02/17/21 12:46 DEXITANT Allergy Unknown CHEST PAIN Uncoded 02/17/21 12:46 From PLAVIX Allergy Unknown PT UNSURE Uncoded 02/17/21 12:46 OF REACTION Medical tape Allergy Unknown Rash Uncoded 02/17/21 12:46 Review of Systems Review of Systems: Constitutional : No Weight loss, No Fever, No Chills, No Fatigue, No Malaise ENT/Mouth : No sore throat, No Rhinorrhea Eyes: No Eye Pain, No Swelling, No Redness Cardiovascular : No Chest Pain, No SOB, No Dyspnea on Exertion, No Orthopnea, No Edema, No Palpitations Respiratory : No Cough, No Sputum, No Wheezing Gastrointestinal : pos Nausea, No Vomiting, No Diarrhea, No Constipation, No abdominal Pain, No Hematochezia, No Melena Genitourinary : No Dysuria, No Urinary Frequency, No Hematuria, Musculoskeletal : No joint pain, No Myalgias, No Joint Swelling Skin : No Skin Lesions, No rash Neuro : pos Weakness, No Numbness, No Dizziness, No Headache Psych : No Anxiety/Panic, No Depression Heme/Lymph: No Bruising, No Bleeding,No Lymphadenopathy Endocrine : No Polyuria, No Polydipsia All other systems reviewed and are negative [facility] Past Medical History Attestation statement: The following information was validated with the patient. Medical History Anxiety Benign essential hypertension Cardiomyopathy Conjunctival hemorrhage of right eye Depression 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 Essential hypertension GERD (gastroesophageal reflux disease) Hyperkalemia Left bundle branch block Nonischemic cardiomyopathy Obesity (BMI 30-39.9) Pure hypercholesterolemia Renal artery stenosis Stasis dermatitis of both legs Stasis edema of both lower extremities Urinary incontinence Surgical History History of cataract surgery History of cholecystectomy History of lumpectomy of left breast Hx of colonoscopy Hx of myomectomy Family History Family History Father CVD (cardiovascular disease) Myocardial infarction Mother Myocardial infarction CVD (cardiovascular disease) Brother Myocardial infarction Family/Other FH: prostate cancer Social History Social History Household Members: None Alcohol intake: never Smoking Status: Never smoker Use of substances other than those prescribed or required for medical reasons: No Advance Directives: No Advance Directives Information Provided: Yes Physical Exam Vital Signs: Vital Signs: Last Vital Signs Temp 97.7 F 02/22/21 08:09 Pulse 76 02/22/21 10:18 Resp 15 02/22/21 10:18 BP 150/73 H 02/22/21 10:18 Pulse Ox 98 02/22/21 10:18 Body Mass Index 33.3 Appearance: Alert. Oriented X3. No acute distress. Eyes: Pupils equal, round and reactive to light. ENT: Pharynx normal. Neck: Normal inspection. Neck supple. CVS: Normal heart rate and rhythm. Pulses normal. Respiratory: No respiratory distress. Breath sounds normal. Abdomen: Soft and nontender. Skin: Skin warm and dry. Normal skin color. Normal skin turgor. Extremities: pos 1+ pitting bilateral lower extremity edema. No calf ttp Neuro: Oriented X 3. No motor deficit. No sensory deficit. Course Course Course Narrative: gentle 250cc fluid bolus will repeat sodium after administration Na better but increase in trop had vague chest pain and nausea - call to Cardiology allergic to aspirin mag repleted discussed with Dr. Ottoniel matson to admit here she has issues with her BP fluctuating up and down chronically Medical Decision Making MDM Narrative Medical decision making narrative: 75 yo female with HTN, renal artery stenosis, anxiety, nonischemic cardiomyopathy notes that since her kitchen assistant started her on chlorthalidone 25mg daily she feels nauseated and dizzy when her BP goes from 104/60 to 98/50 then she has to lay down until it goes away. She stopped taking the chlorthalidone and notes she feels better other than nausea at this time will obtain labs, EKG, give zofran and possibly change her medications and lower her chlorthalidone 12.5 and carvedilol 6.25 have her follow up with her PCP. dispo per results and findings, no abdominal pain, no CP/SOB at this time. Lab Data Result diagrams: 02/22/21 07:52 02/22/21 11:51 Labs: Lab Results 02/22/21 02/22/21 02/22/21 Range/Units 07:52 07:52 07:52 WBC 5.6 (4.8-10.8) X10*3/uL RBC 3.98 L (4.20-5.50) X10*6/uL Hgb 11.8 L (12.0-16.0) g/dl Hct 34.6 L (37-47) % MCV 86.9 (80-98) fL MCH 29.6 (27.0-33.0) pg MCHC 34.1 (31.0-35.0) g/dl RDW 15.1 (11.0-16.0) % Plt Count 243 (160-400) X10*3/uL MPV 10.2 (9.4-12.3) fL Immature Gran % (Auto) 0.7 H (0.0-0.4) % Neut % (Auto) 62.6 (45-73) % Lymph % (Auto) 24.5 (20-40) % [place] % (Auto) 11.2 H (2-11) % Eos % (Auto) 0.5 (0-4) % Baso % (Auto) 0.5 (0-2) % Lymph # (Auto) 1.4 (1.2-4.9) X10*3/uL [place] # (Auto) 0.6 (0.1-1.2) X10*3/uL Eos # (Auto) 0.0 (0.0-0.4) X10*3/uL Baso # (Auto) 0.0 (0.0-0.2) X10*3/uL Abs Immat Gran (auto) 0.04 H (0.00-0.03) X10*3/uL Absolute Neuts (auto) 3.5 (2.0-8.3) X10*3/uL Absolute Nucleated RBC 0.000 (0.0-0.012) X10*3/uL Nucleated RBC % (auto) 0.0 (0.0-0.2) /100WBC Hold Blue Top SEE NOTE Sodium 127 L (135-145) mmol/L Potassium 4.3 (3.3-5.1) mmol/L Chloride 92 L (96-108) mmol/L Carbon Dioxide 26 (22-29) mmol/L Anion Gap 13 (12-20) BUN 17 H (9-16) mg/dL Creatinine 1.40 (0.5-1.4) mg/dL Estim Creat Clear Calc 30.9 Estimated GFR 36 Random Glucose 128 H (60-115) mg/dL Calcium 10.3 H D (8.4-10.2) mg/dL Magnesium (1.6-2.6) mg/dL Total Bilirubin (0.0-1.0) mg/dL Direct Bilirubin (0.0-0.5) mg/dL AST (5-31) U/L ALT (0-31) U/L Alkaline Phosphatase (39-117) U/L Troponin I High Sens (<3.5-17.0) ng/L Total Protein (6.5-8.0) g/dL Albumin (3.5-5.0) g/dL Urine Color Urine Appearance Urine pH (5.0-8.0) Ur Specific [place] (1.005-1.025) Urine Protein (NEG-TRACE) MG/DL Urine Glucose (UA) (NEG) MG/DL Urine Ketones (NEG) MG/DL Urine Blood (NEG) Urine Nitrite (NEG) Ur Leukocyte Esterase (NEG) Urine RBC (0) /HPF Urine WBC (0-4) /HPF Ur Squamous Epith Cells /LPF Urine Bacteria /LPF 02/22/21 02/22/21 02/22/21 Range/Units 07:52 07:52 09:23 WBC (4.8-10.8) X10*3/uL RBC (4.20-5.50) X10*6/uL Hgb (12.0-16.0) g/dl Hct (37-47) % MCV (80-98) fL MCH (27.0-33.0) pg MCHC (31.0-35.0) g/dl RDW (11.0-16.0) % Plt Count (160-400) X10*3/uL MPV (9.4-12.3) fL Immature Gran % (Auto) (0.0-0.4) % Neut % (Auto) (45-73) % Lymph % (Auto) (20-40) % [place] % (Auto) (2-11) % Eos % (Auto) (0-4) % Baso % (Auto) (0-2) % Lymph # (Auto) (1.2-4.9) X10*3/uL [place] # (Auto) (0.1-1.2) X10*3/uL Eos # (Auto) (0.0-0.4) X10*3/uL Baso # (Auto) (0.0-0.2) X10*3/uL Abs Immat Gran (auto) (0.00-0.03) X10*3/uL Absolute Neuts (auto) (2.0-8.3) X10*3/uL Absolute Nucleated RBC (0.0-0.012) X10*3/uL Nucleated RBC % (auto) (0.0-0.2) /100WBC Hold Blue Top Sodium (135-145) mmol/L Potassium (3.3-5.1) mmol/L Chloride (96-108) mmol/L Carbon Dioxide (22-29) mmol/L Anion Gap (12-20) BUN (9-16) mg/dL Creatinine (0.5-1.4) mg/dL Estim Creat Clear Calc Estimated GFR Random Glucose (60-115) mg/dL Calcium (8.4-10.2) mg/dL Magnesium 1.4 L* (1.6-2.6) mg/dL Total Bilirubin 1.1 H (0.0-1.0) mg/dL Direct Bilirubin 0.5 (0.0-0.5) mg/dL AST 25 (5-31) U/L ALT 19 (0-31) U/L Alkaline Phosphatase 76 D (39-117) U/L Troponin I High Sens 26.6 H (<3.5-17.0) ng/L Total Protein 7.1 (6.5-8.0) g/dL Albumin 4.3 (3.5-5.0) g/dL Urine Color STRAW Urine Appearance CLEAR Urine pH 7.5 (5.0-8.0) Ur Specific [place] 1.010 (1.005-1.025) Urine Protein TRACE (NEG-TRACE) MG/DL Urine Glucose (UA) NEG (NEG) MG/DL Urine Ketones NEG (NEG) MG/DL Urine Blood TRACE (NEG) Urine Nitrite NEG (NEG) Ur Leukocyte Esterase TRACE H (NEG) Urine RBC 0-2 (0) /HPF Urine WBC 0-2 (0-4) /HPF Ur Squamous Epith Cells NONE /LPF Urine Bacteria NONE /LPF 02/22/21 02/22/21 Range/Units 11:51 11:51 WBC (4.8-10.8) X10*3/uL RBC (4.20-5.50) X10*6/uL Hgb (12.0-16.0) g/dl Hct (37-47) % MCV (80-98) fL MCH (27.0-33.0) pg MCHC (31.0-35.0) g/dl RDW (11.0-16.0) % Plt Count (160-400) X10*3/uL MPV (9.4-12.3) fL Immature Gran % (Auto) (0.0-0.4) % Neut % (Auto) (45-73) % Lymph % (Auto) (20-40) % [place] % (Auto) (2-11) % Eos % (Auto) (0-4) % Baso % (Auto) (0-2) % Lymph # (Auto) (1.2-4.9) X10*3/uL [place] # (Auto) (0.1-1.2) X10*3/uL Eos # (Auto) (0.0-0.4) X10*3/uL Baso # (Auto) (0.0-0.2) X10*3/uL Abs Immat Gran (auto) (0.00-0.03) X10*3/uL Absolute Neuts (auto) (2.0-8.3) X10*3/uL Absolute Nucleated RBC (0.0-0.012) X10*3/uL Nucleated RBC % (auto) (0.0-0.2) /100WBC Hold Blue Top Sodium 129 L (135-145) mmol/L Potassium (3.3-5.1) mmol/L Chloride (96-108) mmol/L Carbon Dioxide (22-29) mmol/L Anion Gap (12-20) BUN (9-16) mg/dL Creatinine (0.5-1.4) mg/dL Estim Creat Clear Calc Estimated GFR Random Glucose (60-115) mg/dL Calcium (8.4-10.2) mg/dL Magnesium (1.6-2.6) mg/dL Total Bilirubin (0.0-1.0) mg/dL Direct Bilirubin (0.0-0.5) mg/dL AST (5-31) U/L ALT (0-31) U/L Alkaline Phosphatase (39-117) U/L Troponin I High Sens 97.6 H D (<3.5-17.0) ng/L Total Protein (6.5-8.0) g/dL Albumin (3.5-5.0) g/dL Urine Color Urine Appearance Urine pH (5.0-8.0) Ur Specific [place] (1.005-1.025) Urine Protein (NEG-TRACE) MG/DL Urine Glucose (UA) (NEG) MG/DL Urine Ketones (NEG) MG/DL Urine Blood (NEG) Urine Nitrite (NEG) Ur Leukocyte Esterase (NEG) Urine RBC (0) /HPF Urine WBC (0-4) /HPF Ur Squamous Epith Cells /LPF Urine Bacteria /LPF ECG Data Attestation: I personally reviewed and interpreted this ECG as follows: Interpretation: Rate: 74 RhythmNSR: [place]: left Normal P waves. Normal MIMI. LBBB ST T wave : nonspecific, no JESSICA qTC: normal prior studies: no acute ischemia no change from May 2020 The study has been interpreted contemporaneously by me. . Discharge Plan Discharge Clinical Impression: Weakness, Acute hyponatremia, Elevated troponin, Hypomagnesemia Patient Disposition: Admitted As Inpatient
[2021-02-22 07:56] LABS: MANUAL DIFF FLAG NO
[2021-02-22 07:58] LABS: Basophils Percent Auto 0.5 % (0-2); Eosinophils Percent Auto 0.5 % (0-4); Hematocrit 34.6 % (37-47); Hemoglobin 11.8 g/dl (12.0-16.0); Imm Gran Abs Auto 0.04 X10*3/uL (0.00-0.03); Imm Gran Pct Auto 0.7 % (0.0-0.4); Lymphocytes Absolute Auto 1.4 X10*3/uL (1.2-4.9); Lymphocytes Percent Auto 24.5 % (20-40); Mean Corpuscular HGB Conc 34.1 g/dl (31.0-35.0); Mean Corpuscular Hemoglobin 29.6 pg (27.0-33.0); Mean Corpuscular Volume 86.9 fL (80-98); Mean Platelet Volume 10.2 fL (9.4-12.3); Monocytes Absolute Auto 0.6 X10*3/uL (0.1-1.2); Monocytes Percent Auto 11.2 % (2-11); Neutrophils Absolute Auto 3.5 X10*3/uL (2.0-8.3); Neutrophils Percent Auto 62.6 % (45-73); Platelet Count 243 X10*3/uL (160-400); Red Blood Count 3.98 X10*6/uL (4.20-5.50); Red Cell Distribution Width 15.1 % (11.0-16.0); White Blood Count 5.6 X10*3/uL (4.8-10.8)
[2021-02-22 08:26] LABS: Anion Gap 13 (12-20); Blood Urea Nitrogen 17 mg/dL (9-16); Calcium 10.3 mg/dL (8.4-10.2); Carbon Dioxide 26 mmol/L (22-29); Chloride 92 mmol/L (96-108); Creatinine Clr Calc Pharmacy 30.9; Estimated Glomerular Filt Rate 36; Glucose Random 128 mg/dL (60-115); Potassium 4.3 mmol/L (3.3-5.1); Sodium 127 mmol/L (135-145)
[2021-02-22 08:34] LABS: Alanine Aminotransferase 19 U/L (0-31); Albumin Level 4.3 g/dL (3.5-5.0); Alkaline Phosphatase 76 U/L (39-117); Aspartate Amino Transferase 25 U/L (5-31); Bilirubin Direct 0.5 mg/dL (0.0-0.5); Bilirubin Total 1.1 mg/dL (0.0-1.0); Magnesium 1.4 mg/dL (1.6-2.6); Total Protein 7.1 g/dL (6.5-8.0)
[2021-02-22 08:35] LABS: Troponin-I High Sensitivity 26.6 ng/L (<3.5-17.0)
[2021-02-22] MEDS: Magnesium Sulfate/H2O 2 GM/50 ML PIGGYBACK IV (08:51)
[2021-02-22 09:39] LABS: Glucose Urine UA NEG (NEG); Leukocyte Esterase Urine TRACE (NEG); Nitrite Urine NEG (NEG); PH 7.5 (5.0-8.0); UACC Culture Trigger YES; Urine Blood TRACE (NEG); Urine Ketones NEG (NEG); Urine Protein TRACE MG/DL (NEG-TRACE)
[2021-02-22 09:40] LABS: Appearance Urine CLEAR; Color Urine STRAW
[2021-02-22 09:52] LABS: RBC Urine 0-2 /HPF (0); WBC Urine 0-2 /HPF (0-4)
[2021-02-22] MEDS: 0.9 % Sodium Chloride 500 ML 250 ML IV (09:54)
[2021-02-22 12:24] LABS: Sodium 129 mmol/L (135-145)
[2021-02-22 12:45] LABS: Troponin-I High Sensitivity 97.6 ng/L (<3.5-17.0)
[2021-02-22 14:35] LABS: COVID-19 Test Negative (Negative)
[2021-02-22 14:41] LABS: B Type Natriuretic Peptide 294 pg/mL (<100)
--- NOTE | 2021-02-22 16:06 | PM.IMHP ---
Review of Systems Review of Systems: Denies any recent fever chills or decrease in appetite respiratory denies any shortness of breath coverage production cardiovascular denies chest pain gastrointestinal denies any dysphagia abdominal pain nausea vomiting or diarrhea genitourinary denies any dysuria frequency or hematuria musculoskeletal denies any joint pain or swelling neuropsych denies any weakness or seizures all other systems reviewed are negative [facility] Medical History Anxiety Benign essential hypertension Cardiomyopathy Conjunctival hemorrhage of right eye Depression 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 Essential hypertension GERD (gastroesophageal reflux disease) Hyperkalemia Left bundle branch block Nonischemic cardiomyopathy Obesity (BMI 30-39.9) Pure hypercholesterolemia Renal artery stenosis Stasis dermatitis of both legs Stasis edema of both lower extremities Urinary incontinence Family History Father CVD (cardiovascular disease) Myocardial infarction Mother Myocardial infarction CVD (cardiovascular disease) Brother Myocardial infarction Family/Other FH: prostate cancer Surgical History History of cataract surgery History of cholecystectomy History of lumpectomy of left breast Hx of colonoscopy Hx of myomectomy Social History Household Members: None Alcohol intake: never Smoking Status: Never smoker Use of substances other than those prescribed or required for medical reasons: No Advance Directives: No Advance Directives Information Provided: Yes Meds Allergies Allergy/AdvReac Type Severity Reaction Status Date / Time aspirin [Aspirin] Allergy Severe MOUTH Verified 02/17/21 12:46 SWELLING hydrochlorothiazide Allergy Intermediate DROP IN Verified 02/17/21 12:46 [Hydrochlorothiazide] BLOOD PRESSURE Penicillins [PENICILLINS] Allergy Intermediate ITCHING Verified 02/17/21 12:46 caffeine [Caffeine] Allergy Mild NERVOUSNESS Verified 02/17/21 12:46 lisinopril [Lisinopril] Allergy Mild CHANGES IN Verified 02/17/21 12:46 BLOOD PRESSURE ranitidine [RANITIDINE] Allergy Mild HEADACHE Verified 02/17/21 12:46 amlodipine [AMLODIPINE] Allergy Unknown UNKNOWN Verified 02/17/21 12:46 amoxicillin Allergy Unknown itching, Verified 02/17/21 12:46 severe with rash diclofenac Allergy Unknown Unknown Verified 02/17/21 12:46 escitalopram Allergy Unknown abdominal Verified 02/17/21 12:46 discomfort, drowsiness esomeprazole [Nexium] Allergy Unknown Unknown Verified 02/17/21 12:46 isosorbide [ISOSORBIDE] Allergy Unknown UNKNOWN Verified 02/17/21 12:46 lidocaine [Lidoderm] Allergy Unknown weakness Verified 02/17/21 12:46 mirtazapine Allergy Unknown Unknown Verified 02/17/21 12:46 nystatin Allergy Unknown rash Verified 02/17/21 12:46 penicillin V Allergy Unknown Itching, Verified 02/17/21 12:46 rash all over body sertraline [SERTRALINE] Allergy Unknown UNKNOWN Verified 02/17/21 12:46 dexlansoprazole AdvReac Severe AGITATION Verified 02/17/21 12:46 [From DEXILANT] hydrocortisone AdvReac Mild RAISES Verified 02/17/21 12:46 [From Cortizone-10] BLOOD SUGAR topiramate [From TOPAMAX] AdvReac Unknown AGITATION Verified 02/17/21 12:46 DEXITANT Allergy Unknown CHEST PAIN Uncoded 02/17/21 12:46 From PLAVIX Allergy Unknown PT UNSURE Uncoded 02/17/21 12:46 OF REACTION Medical tape Allergy Unknown Rash Uncoded 02/17/21 12:46 Active Medications: Current Medications Generic Name Dose Route Start Last Admin Trade Name Freq PRN Reason Stop Dose Admin Pharmacy Consult 1 each 02/22/21 13:08 Consult Rx Perform Med Rec MISCELLANE ONCE PRN Consult order Home Medications Medication Instructions Recorded Confirmed Last Taken Type acetaminophen 500 mg tablet 500 mg PO .TWICE A DAY PRN tab 08/16/20 02/22/21 Unknown History alprazolam 0.5 mg tablet 0.5 mg PO BID PRN 08/16/20 02/22/21 02/22/21 History aluminum-mag hydroxide-simethicone 10 ml PO ONCE PRN ml 08/16/20 02/22/21 02/21/21 History 200 mg-200 mg-20 mg/5 mL oral susp buspirone 7.5 mg tablet 7.5 mg PO DAILY 08/16/20 02/22/21 02/21/21 History chlorthalidone 25 mg tablet 25 mg PO QAM 10/26/20 02/22/21 02/21/21 History carvedilol 1 tab PO BID 02/22/21 02/22/21 02/22/21 History cholecalciferol (vitamin D3) 2 cap PO DAILY 02/22/21 02/22/21 02/21/21 History [Vitamin D3] ciclopirox 1 applic TOPICAL BID 02/22/21 02/22/21 02/21/21 History Physical Exam Vital Signs and Narrative: Vital Signs: Last Vital Signs Temp 97.7 F 02/22/21 08:09 Pulse 76 02/22/21 10:18 Resp 15 02/22/21 10:18 BP 150/73 H 02/22/21 10:18 Pulse Ox 98 02/22/21 10:18 Body Mass Index 33.3 Appearing in no acute distress head is normocephalic atraumatic eyes pupils are PERRLA sclera is anicteric mouth throat mucous membranes are intact and moist neck is supple no lymphadenopathy, no JVD noted lung sounds are clear to auscultation heart regular rate rhythm, clear S1, S2, plus wanted to lower extremity edema from below the knee to toes positive bowel sounds, abdomen is soft, nontender neuro patient is alert x3, no focal deficits Results Labs CBC and Chem 7: 02/22/21 07:52 02/22/21 11:51 Labs: Laboratory Results - last 24 hr 02/22/21 02/22/21 02/22/21 07:52 07:52 07:52 MCV 86.9 MCH 29.6 MCHC 34.1 RDW 15.1 Plt Count 243 MPV 10.2 Immature Gran % (Auto) 0.7 H Neut % (Auto) 62.6 Lymph % (Auto) 24.5 [place] % (Auto) 11.2 H Eos % (Auto) 0.5 Baso % (Auto) 0.5 Lymph # (Auto) 1.4 [place] # (Auto) 0.6 Eos # (Auto) 0.0 Baso # (Auto) 0.0 Abs Immat Gran (auto) 0.04 H Absolute Neuts (auto) 3.5 Absolute Nucleated RBC 0.000 Nucleated RBC % (auto) 0.0 Hold Blue Top SEE NOTE Anion Gap 13 Estim Creat Clear Calc 30.9 Estimated GFR 36 Random Glucose 128 H Calcium 10.3 H D Magnesium Total Bilirubin Direct Bilirubin AST ALT Alkaline Phosphatase Troponin I High Sens B-Natriuretic Peptide Total Protein Albumin Urine Color Urine Appearance Urine pH Ur Specific [place] Urine Protein Urine Glucose (UA) Urine Ketones Urine Blood Urine Nitrite Ur Leukocyte Esterase Urine RBC Urine WBC Ur Squamous Epith Cells Urine Bacteria COVID-19 (FREDERICK) COVID-19 [employer] 02/22/21 02/22/21 02/22/21 07:52 07:52 09:23 MCV MCH MCHC RDW Plt Count MPV Immature Gran % (Auto) Neut % (Auto) Lymph % (Auto) [place] % (Auto) Eos % (Auto) Baso % (Auto) Lymph # (Auto) [place] # (Auto) Eos # (Auto) Baso # (Auto) Abs Immat Gran (auto) Absolute Neuts (auto) Absolute Nucleated RBC Nucleated RBC % (auto) Hold Blue Top Anion Gap Estim Creat Clear Calc Estimated GFR Random Glucose Calcium Magnesium 1.4 L* Total Bilirubin 1.1 H Direct Bilirubin 0.5 AST 25 ALT 19 Alkaline Phosphatase 76 D Troponin I High Sens 26.6 H B-Natriuretic Peptide Total Protein 7.1 Albumin 4.3 Urine Color STRAW Urine Appearance CLEAR Urine pH 7.5 Ur Specific [place] 1.010 Urine Protein TRACE Urine Glucose (UA) NEG Urine Ketones NEG Urine Blood TRACE Urine Nitrite NEG Ur Leukocyte Esterase TRACE H Urine RBC 0-2 Urine WBC 0-2 Ur Squamous Epith Cells NONE Urine Bacteria NONE COVID-19 (FREDERICK) COVID-19 [employer] 02/22/21 02/22/21 02/22/21 11:51 13:59 13:59 MCV MCH MCHC RDW Plt Count MPV Immature Gran % (Auto) Neut % (Auto) Lymph % (Auto) [place] % (Auto) Eos % (Auto) Baso % (Auto) Lymph # (Auto) [place] # (Auto) Eos # (Auto) Baso # (Auto) Abs Immat Gran (auto) Absolute Neuts (auto) Absolute Nucleated RBC Nucleated RBC % (auto) Hold Blue Top Anion Gap Estim Creat Clear Calc Estimated GFR Random Glucose Calcium Magnesium Total Bilirubin Direct Bilirubin AST ALT Alkaline Phosphatase Troponin I High Sens 97.6 H D B-Natriuretic Peptide 294 H Total Protein Albumin Urine Color Urine Appearance Urine pH Ur Specific [place] Urine Protein Urine Glucose (UA) Urine Ketones Urine Blood Urine Nitrite Ur Leukocyte Esterase Urine RBC Urine WBC Ur Squamous Epith Cells Urine Bacteria COVID-19 (FREDERICK) Negative COVID-19 [employer] See Note Imaging Radiologist's Impressions: Impressions Chest X-Ray 02/22/21 07:33 IMPRESSION: Unremarkable examination. Assessment and Plan (1) Weakness: Status: Acute
--- NOTE | 2021-02-22 18:57 | HP_ITS ---
DATE OF SERVICE: 02/22/2021 CHIEF COMPLAINT: Weakness. HISTORY OF PRESENT ILLNESS: A 75-year-old woman presenting to the ER with complaints of feeling weak, dizzy with elevated blood pressure. She tells me that she was recently started on chlorthalidone on February 16 for lower extremity swelling by her rn float. She reports after that she has been having some waxing and waning of her blood pressure going up and down. This morning, it was 182/98 and she had taken 12.5 mg of Coreg, although she had been taking 6.25 mg because her blood pressures were low in the morning. She reports this as a chronic issue for many years and has been following with Cardiology and Nephrology. More recently, she reported some nausea, weakness, poor appetite, dizziness, and headache. She denied chest pain, fever, chills, recent travel, or recent illness. She was noted to have magnesium of 1.4, sodium 129, bilirubin 1.1, troponin 26.6 and 97.6, BNP 294. COVID-19 negative. Vital signs are stable with highest blood pressure reading was 164/90. She received a dose of IV magnesium, Zofran, and 500 mL of IV fluids. She will be admitted for further management and treatment of electrolyte abnormalities and extreme blood pressure fluctuation. PAST MEDICAL HISTORY: 1. Hypertension. 2. Type 2 diabetes mellitus. 3. Hyperlipidemia. 4. Nonischemic cardiomyopathy. 5. Anxiety. 6. Chronic left bundle branch block. 7. Bipolar disorder. 8. Chronic back pain. 9. GERD. 10. Renal artery stenosis. 11. Stasis dermatitis of lower extremities. PAST SURGICAL HISTORY: 1. Cataract surgery. 2. Cholecystectomy. 3. Lumpectomy of left breast. 4. History of colonoscopy and myomectomy. FAMILY HISTORY: Father had cardiovascular disease, myocardial infarction. Mother had cardiovascular disease, myocardial infarction. Brother had myocardial infarction. Other family history includes cancer. SOCIAL HISTORY: Denies any alcohol, tobacco, illicit drug use. Lives alone. Have [employer] services. ALLERGIES: TO ASPIRIN, HYDROCHLOROTHIAZIDE, PENICILLIN, CAFFEINE, LISINOPRIL, RANITIDINE, AMLODIPINE, AMOXICILLIN, DICLOFENAC, LEXAPRO, NEXIUM, ISOSORBIDE, LIDOCAINE, MIRTAZAPINE, NYSTATIN, SERTRALINE, DEXILANT, HYDROCORTISONE, TOPAMAX, PLAVIX, MEDICAL TAPE. MEDICATIONS: 1. Acetaminophen 500 mg p.o. b.i.d. 2. Alprazolam 0.5 mg p.o. b.i.d. 3. Magnesium hydroxide. 4. Buspirone 7.5 mg p.o. daily. 5. Carvedilol 6.25 mg p.o. b.i.d. 6. Chlorthalidone 25 mg p.o. daily. 7. Cholecalciferol 2 tabs p.o. daily. 8. Ciclopirox 1 application topically b.i.d. 9. Clotrimazole-betamethasone 1 application topically b.i.d. p.r.n. 10. Losartan 100 mg p.o. daily. 11. Metformin 1000 mg p.o. b.i.d. 12. Pantoprazole sodium 40 mg p.o. daily. 13. Rosuvastatin calcium 40 mg p.o. daily. 14. Sennosides 17.2 mg p.o. daily as needed. 15. Januvia 100 mg p.o. daily. REVIEW OF SYSTEMS: CONSTITUTIONAL: Denies any recent fever, chills. Reports decrease in appetite. RESPIRATORY: Denies any shortness of breath, cough, or sputum production. CARDIOVASCULAR: Denies any chest pain, orthopnea, PND. Reports edema. GASTROINTESTINAL: Denies any dysphagia, abdominal pain, nausea, vomiting, or diarrhea. GENITOURINARY: Denies any dysuria, frequency, hematuria. MUSCULOSKELETAL: Denies any joint pain or swelling. NEUROPSYCH: Denies any weakness or seizures. All other systems are reviewed and are negative. PHYSICAL EXAMINATION: CONSTITUTIONAL: Resting in bed, appearing in no acute distress. VITAL SIGNS: 97.7, 76, 15, 150/73, 98% on room air. SKIN: Intact without rash or open sores. HEENT: Head is normocephalic, atraumatic. Eyes, pupils are PERRLA. Sclerae anicteric. Mouth and throat, mucous membranes are intact and moist. NECK: Supple. No lymphadenopathy. No JVD noted. CHEST: Clear to auscultation without wheezes, rhonchi, or rales. HEART: Regular rate and rhythm. Clear S1, S2. No murmurs, rubs, gallops. 1/2 pitting edema to bilateral lower extremities from below knee to toes. ABDOMEN: Obese. Positive bowel sounds. Soft. Nontender. No hepatomegaly or splenomegaly noted. NEURO: The patient is alert and oriented x3. Cranial nerves II through XII are grossly intact without focal deficits. LABORATORY DATA: WBC 5.6, hemoglobin 11.8, hematocrit 34.6, platelets 243. Sodium is 127, potassium is 4.3, chloride is 92, bicarb is 26, BUN is 17, creatinine is 1.40, magnesium is 1.4, calcium is 10.3, total bilirubin is 1.1. Troponin 26.6 and 97.6. BNP is 294. Chest x-ray shows clear lungs. No airspace consolidation or effusion. ASSESSMENT AND PLAN: A 75-year-old woman, who is presenting to the ER with complaints of worsening lower extremity edema, weakness, poor appetite, and blood pressure changes. The patient reports her blood pressure issues have been chronic for many years, and she follows with Cardiology and Nephrology. She reported since starting chlorthalidone, she has been feeling more weak, nauseous, and having a poor appetite. She has since stopped this medication. 1. General malaise. Likely medication related from chlorthalidone versus blood pressure. a. Stop chlorthalidone. b. We will consult Cardiology and Nephrology regarding her blood pressure. c. Encourage oral intake, ADA diet. d. Supportive care. 2. Uncontrolled hypertension, chronic. a. Cardiology and Nephrology consultation for evaluation regarding medications. b. We will continue carvedilol and losartan. 3. 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. Sliding scale. ADA diet. Hold metformin for now. 4. Lower extremity edema. Does not appear to be in overt heart failure. a. We will hold diuresis for now. b. Add SARAH stockings. 5. Depression/anxiety. Continue alprazolam. 6. Hypomagnesemia. Replete in the ER. Follow mag. 7. Hyponatremia. Likely secondary medication related. Follow BMP. 8. Elevated troponin. No complaints of chest pain. No acute EKG changes. a. Cardiology to follow. b. Repeat troponin in the morning. 9. Deep vein thrombosis prophylaxis with heparin. LUCAS Cam MD JR/[facility] / [id number]
[2021-02-22] MEDS: carvediloL 6.25 MG TABLET PO (21:19)
[2021-02-22] MEDS: 0.9 % Sodium Chloride Flush 3 ML SYRINGE IVFLUSH (21:24)
[2021-02-23] VITALS (9 sets, daily range): BP systolic 112–132; BP diastolic 52–64; PULSE 62–96; RESP 15–19; TEMP 36–36.9; O2SAT 96–98
[2021-02-23] MEDS: ALPRAZolam 0.5 MG TABLET PO ×2 (02:44→21:45)
[2021-02-23 06:06] LABS: MANUAL DIFF FLAG NO
[2021-02-23 06:43] LABS: Anion Gap 13 (12-20); Basophils Percent Auto 0.6 % (0-2); Blood Urea Nitrogen 16 mg/dL (9-16); Calcium 9.6 mg/dL (8.4-10.2); Carbon Dioxide 26 mmol/L (22-29); Chloride 96 mmol/L (96-108); Creatinine Clr Calc Pharmacy 34.3; Eosinophils Percent Auto 0.6 % (0-4); Estimated Glomerular Filt Rate 41; Glucose Random 138 mg/dL (60-115); Hematocrit 33.5 % (37-47); Hemoglobin 11.3 g/dl (12.0-16.0); Imm Gran Abs Auto 0.04 X10*3/uL (0.00-0.03); Imm Gran Pct Auto 0.8 % (0.0-0.4); Lymphocytes Absolute Auto 1.2 X10*3/uL (1.2-4.9); Lymphocytes Percent Auto 24.1 % (20-40); Mean Corpuscular HGB Conc 33.7 g/dl (31.0-35.0); Mean Corpuscular Hemoglobin 29.1 pg (27.0-33.0); Mean Corpuscular Volume 86.3 fL (80-98); Mean Platelet Volume 11.7 fL (9.4-12.3); Monocytes Absolute Auto 0.7 X10*3/uL (0.1-1.2); Monocytes Percent Auto 13.8 % (2-11); Neutrophils Percent Auto 60.1 % (45-73); Platelet Count 256 X10*3/uL (160-400); Red Blood Count 3.88 X10*6/uL (4.20-5.50); Red Cell Distribution Width 15.3 % (11.0-16.0); Sodium 131 mmol/L (135-145); White Blood Count 5.1 X10*3/uL (4.8-10.8)
[2021-02-23 06:53] LABS: B Type Natriuretic Peptide 775 pg/mL (<100); Troponin-I High Sensitivity 144.2 ng/L (<3.5-17.0)
[2021-02-23 06:54] LABS: Magnesium 1.8 mg/dL (1.6-2.6)
[2021-02-23 07:25] LABS: Glucose, Whole Blood 169 mg/dL (60-115)
[2021-02-23] MEDS: Cholecalciferol (Vitamin D3) 10 MCG TABLET 20 MCG PO (08:24)
[2021-02-23] MEDS: busPIRone HCl 5 MG TABLET 7.5 MG PO (08:24)
[2021-02-23] MEDS: carvediloL 6.25 MG TABLET PO ×2 (08:24→19:45)
[2021-02-23] MEDS: SITagliptin Phosphate 100 MG TABLET PO (08:24)
[2021-02-23] MEDS: Losartan Potassium 50 MG TABLET 100 MG PO (08:24)
[2021-02-23] MEDS: 0.9 % Sodium Chloride Flush 3 ML SYRINGE IVFLUSH ×3 (08:24→21:45)
[2021-02-23] MEDS: Omeprazole 20 MG CAPSULE.DR PO (08:24)
--- NOTE | 2021-02-23 09:24 | P.CONNP_ITS ---
History of Present Illness Reason for Consult Consult date: 02/23/21 Chief Complaint Chief complaint: Hypertension History of Present Illness Narrative: Asked to see pt for hypoNa and labile HTN w edema. Obdulia known to my partner Dr Madrigal and BP meds cont to be adjusted. Rec state that she was started on chlorthalidone 02/16 and edema much imoprved but developed hypoNa 129. Overall feeling better to today. No CP/SOB. Full water pitcher at bedside. Noo CP/SOB. PAST MEDICAL HISTORY: 1. Hypertension. 2. Type 2 diabetes mellitus. 3. Hyperlipidemia. 4. Nonischemic cardiomyopathy. 5. Anxiety. 6. Chronic left bundle branch block. 7. Bipolar disorder. 8. Chronic back pain. 9. GERD. 10. Renal artery stenosis. 11. Stasis dermatitis of lower extremities. [facility] Past Medical History Medical History Anxiety Benign essential hypertension Cardiomyopathy Conjunctival hemorrhage of right eye Depression 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 Essential hypertension GERD (gastroesophageal reflux disease) Hyperkalemia Left bundle branch block Nonischemic cardiomyopathy Obesity (BMI 30-39.9) Pure hypercholesterolemia Renal artery stenosis Stasis dermatitis of both legs Stasis edema of both lower extremities Urinary incontinence Family History Family History Father CVD (cardiovascular disease) Myocardial infarction Mother Myocardial infarction CVD (cardiovascular disease) Brother Myocardial infarction Family/Other FH: prostate cancer Surgical History Surgical History History of cataract surgery History of cholecystectomy History of lumpectomy of left breast Hx of colonoscopy Hx of myomectomy Social History Social History Household Members: None Housing: Apartment Do you presently have visiting nurse or other home services: No Alcohol intake: never Smoking Status: Never smoker Use of substances other than those prescribed or required for medical reasons: No Currently Displaying Signs/Symptoms of Drug Intoxication Withdrawal: No Have you been hit, kicked, punched, or otherwise hurt by someone within the past year? If so, by whom?: No Do you feel safe in your current relationship?: No Current Relationship Is there a partner from a previous relationship who is making you feel unsafe now?: No Are you made to feel afraid or neglected: No Advance Directives: No Advance Directives Information Provided: Yes Do you have thoughts of harming others: None Do you have a plan to hurt others: No Plan Recently lost weight without trying: No Nutrition Risks: No Nutritional Risk Patient : No : No Poor oral hygiene: No Meds Allergies Allergy/AdvReac Type Severity Reaction Status Date / Time aspirin [Aspirin] Allergy Severe MOUTH Verified 02/17/21 12:46 SWELLING hydrochlorothiazide Allergy Intermediate DROP IN Verified 02/17/21 12:46 [Hydrochlorothiazide] BLOOD PRESSURE Penicillins [PENICILLINS] Allergy Intermediate ITCHING Verified 02/17/21 12:46 caffeine [Caffeine] Allergy Mild NERVOUSNESS Verified 02/17/21 12:46 lisinopril [Lisinopril] Allergy Mild CHANGES IN Verified 02/17/21 12:46 BLOOD PRESSURE ranitidine [RANITIDINE] Allergy Mild HEADACHE Verified 02/17/21 12:46 amlodipine [AMLODIPINE] Allergy Unknown UNKNOWN Verified 02/17/21 12:46 amoxicillin Allergy Unknown itching, Verified 02/17/21 12:46 severe with rash diclofenac Allergy Unknown Unknown Verified 02/17/21 12:46 escitalopram Allergy Unknown abdominal Verified 02/17/21 12:46 discomfort, drowsiness esomeprazole [Nexium] Allergy Unknown Unknown Verified 02/17/21 12:46 isosorbide [ISOSORBIDE] Allergy Unknown UNKNOWN Verified 02/17/21 12:46 lidocaine [Lidoderm] Allergy Unknown weakness Verified 02/17/21 12:46 mirtazapine Allergy Unknown Unknown Verified 02/17/21 12:46 nystatin Allergy Unknown rash Verified 02/17/21 12:46 penicillin V Allergy Unknown Itching, Verified 02/17/21 12:46 rash all over body sertraline [SERTRALINE] Allergy Unknown UNKNOWN Verified 02/17/21 12:46 dexlansoprazole AdvReac Severe AGITATION Verified 02/17/21 12:46 [From DEXILANT] hydrocortisone AdvReac Mild RAISES Verified 02/17/21 12:46 [From Cortizone-10] BLOOD SUGAR topiramate [From TOPAMAX] AdvReac Unknown AGITATION Verified 02/17/21 12:46 DEXITANT Allergy Unknown CHEST PAIN Uncoded 02/17/21 12:46 From PLAVIX Allergy Unknown PT UNSURE Uncoded 02/17/21 12:46 OF REACTION Medical tape Allergy Unknown Rash Uncoded 02/17/21 12:46 Active Medications: Current Medications Generic Name Dose Route Start Last Admin Trade Name Freq PRN Reason Stop Dose Admin Acetaminophen 650 mg 02/22/21 16:35 Acetaminophen 325 Mg Tablet PO Q6H PRN Pain, Mild (Pain Scale 1-3) Al Hydroxide/Mg Hydroxide 10 ml 02/22/21 17:09 Magnesium Hydrox/Alum Hydrox 30 Ml Oral.Susp PO ONCE PRN Stomach Upset Alprazolam 0.5 mg 02/22/21 16:35 02/23/21 02:44 Alprazolam 0.5 Mg Tablet PO 0.5 mg BID PRN Administration Anxiety Atorvastatin Calcium 80 mg 02/23/21 21:00 Atorvastatin Calcium 80 Mg Tablet PO BEDTIME ANAT Buspirone HCl 7.5 mg 02/23/21 09:00 02/23/21 08:24 Buspirone Hcl 5 Mg Tablet PO 7.5 mg DAILY [facility] Administration Carvedilol 6.25 mg 02/22/21 21:00 02/23/21 08:24 Carvedilol 6.25 Mg Tablet PO 6.25 mg BID [facility] Administration Protocol Losartan Potassium 100 mg 02/23/21 09:00 02/23/21 08:24 Losartan Potassium 50 Mg Tablet PO 100 mg DAILY [facility] Administration Protocol Non-Formulary Medication 40 mg 02/23/21 09:00 Rosuvastatin PO DAILY [facility] Omeprazole 20 mg 02/23/21 07:00 02/23/21 08:24 Omeprazole 20 Mg Capsule. PO 20 mg DAILY@0630 [facility] Administration Ondansetron HCl 4 mg 02/22/21 16:35 Ondansetron Hcl 4 Mg/2 Ml Vial IVPUSH Q8H PRN Nausea and Vomiting Pharmacy Consult 1 each 02/22/21 13:08 Consult Rx Perform Med Rec MISCELLANE ONCE PRN Consult order Senna 17.2 mg 02/22/21 16:35 Sennosides 8.6 Mg Tablet PO DAILY PRN constipation Sitagliptin Phosphate 100 mg 02/23/21 09:00 02/23/21 08:24 Sitagliptin Phosphate 100 Mg Tablet PO 100 mg DAILY ANAT Administration Sodium Chloride 3 ml 02/23/21 00:00 02/23/21 08:24 0.9 % Sodium Chloride Flush 3 Ml Syringe IVFLUSH 3 ml QSHIFT [facility] Administration Vitamin D 20 mcg 02/23/21 09:00 02/23/21 08:24 Cholecalciferol (Vitamin D3) 10 Mcg Tablet PO 20 mcg DAILY [facility] Administration Home Medications Medication Instructions Recorded Confirmed Last Taken Type acetaminophen 500 mg tablet 500 mg PO .TWICE A DAY PRN tab 08/16/20 02/22/21 Unknown History alprazolam 0.5 mg tablet 0.5 mg PO BID PRN 08/16/20 02/22/21 02/22/21 History aluminum-mag hydroxide-simethicone 10 ml PO ONCE PRN ml 08/16/20 02/22/21 02/21/21 History 200 mg-200 mg-20 mg/5 mL oral susp buspirone 7.5 mg tablet 7.5 mg PO DAILY 08/16/20 02/22/21 02/21/21 History chlorthalidone 25 mg tablet 25 mg PO QAM 10/26/20 02/22/21 02/21/21 History carvedilol 1 tab PO BID 02/22/21 02/22/21 02/22/21 History cholecalciferol (vitamin D3) 2 cap PO DAILY 02/22/21 02/22/21 02/21/21 History [Vitamin D3] ciclopirox 1 applic TOPICAL BID 02/22/21 02/22/21 02/21/21 History Physical Exam Vital Signs: Last Vital Signs Temp 98 F 02/23/21 07:09 Pulse 96 02/23/21 08:24 Resp 19 02/23/21 07:09 BP 115/59 L 02/23/21 08:24 Pulse Ox 97 02/23/21 07:09 Body Mass Index 33.3 Results Lab Results Result Diagrams: 02/23/21 05:21 02/23/21 05:21 Lab results: Chemistry 02/22/21 02/22/21 02/23/21 07:52 11:51 05:21 Sodium 127 L 129 L 131 L Potassium 4.3 4.0 Carbon Dioxide 26 26 BUN 17 H 16 Creatinine 1.40 1.26 Calcium 10.3 H D 9.6 D Hematology 02/22/21 02/23/21 07:52 05:21 WBC 5.6 5.1 Hgb 11.8 L 11.3 L Plt Count 243 256 Urinalysis 02/22/21 09:23 Urine Color STRAW Urine Appearance CLEAR Urine pH 7.5 Ur Specific [place] 1.010 Urine Protein TRACE Urine Glucose (UA) NEG Urine Ketones NEG Urine Blood TRACE Urine Nitrite NEG Ur Leukocyte Esterase TRACE H Urine RBC 0-2 Urine WBC 0-2 Ur Squamous Epith Cells NONE Assessment and Plan (1) Weakness: Status: Acute Labile HTN Edema adm weakness and hypoNa with SNa 127 on adm coincides with recent start of chlorthalidone 1. HypoNa: c/w thiazide diureticc effect and SNa grad incr 127 to 131 trhis am off thiazide; other poss such as adrenal; insuff or hypothyroid seems unlikely 2. Labile HTN: controlled now; needs outpt eval at [facility] in our office 3. Edema: resolved; if recurrs woill need loop diuretic and need to avoid thiazide diurtics REC: avoid thiazxides; track BP and SNa levels will follow with team
--- NOTE | 2021-02-23 09:55 | P.PNIM_ITS ---
Subjective Subjective Date of Service: 02/23/21 <Marisela Pradhan NP - Last Filed: 02/23/21 10:54> 02/23/21 <Davy Bright MD - Last Filed: 02/23/21 17:50> Interval History: Follow up weakness headache overnight still feeling weak <Marisela Pradhan NP - Last Filed: 02/23/21 10:54> Physical Exam Vital Signs: Vital Signs: Last Vital Signs Temp 98 F 02/23/21 07:09 Pulse 96 02/23/21 08:24 Resp 19 02/23/21 07:09 BP 115/59 L 02/23/21 08:24 Pulse Ox 97 02/23/21 07:09 Body Mass Index 33.3 <Marisela Pradhan NP - Last Filed: 02/23/21 10:54> Appearing in no acute distress lung sounds are clear to auscultation heart regular rate rhythm, clear S1, S2 positive bowel sounds, abdomen is soft, nontender neuro patient is alert x3, no focal deficits <Marisela Pradhan NP - Last Filed: 02/23/21 10:54> Objective Data Current Medications Generic Name Dose Route Start Last Admin Trade Name Freq PRN Reason Stop Dose Admin Acetaminophen 650 mg 02/22/21 16:35 Acetaminophen 325 Mg Tablet PO Q6H PRN Pain, Mild (Pain Scale 1-3) Al Hydroxide/Mg Hydroxide 10 ml 02/22/21 17:09 Magnesium Hydrox/Alum Hydrox 30 Ml Oral.Susp PO ONCE PRN Stomach Upset Alprazolam 0.5 mg 02/22/21 16:35 02/23/21 02:44 Alprazolam 0.5 Mg Tablet PO 0.5 mg BID PRN Administration Anxiety Atorvastatin Calcium 80 mg 02/23/21 21:00 Atorvastatin Calcium 80 Mg Tablet PO BEDTIME ANAT Buspirone HCl 7.5 mg 02/23/21 09:00 02/23/21 08:24 Buspirone Hcl 5 Mg Tablet PO 7.5 mg DAILY ANAT Administration Carvedilol 6.25 mg 02/22/21 21:00 02/23/21 08:24 Carvedilol 6.25 Mg Tablet PO 6.25 mg BID ANAT Administration Protocol Losartan Potassium 100 mg 02/23/21 09:00 02/23/21 08:24 Losartan Potassium 50 Mg Tablet PO 100 mg DAILY ANAT Administration Protocol Non-Formulary Medication 40 mg 02/23/21 09:00 Rosuvastatin PO DAILY [facility] Omeprazole 20 mg 02/23/21 07:00 02/23/21 08:24 Omeprazole 20 Mg Capsule. PO 20 mg DAILY@0630 ANAT Administration Ondansetron HCl 4 mg 02/22/21 16:35 Ondansetron Hcl 4 Mg/2 Ml Vial IVPUSH Q8H PRN Nausea and Vomiting Pharmacy Consult 1 each 02/22/21 13:08 Consult Rx Perform Med Rec MISCELLANE ONCE PRN Consult order Senna 17.2 mg 02/22/21 16:35 Sennosides 8.6 Mg Tablet PO DAILY PRN constipation Sitagliptin Phosphate 100 mg 02/23/21 09:00 02/23/21 08:24 Sitagliptin Phosphate 100 Mg Tablet PO 100 mg DAILY ANAT Administration Sodium Chloride 3 ml 02/23/21 00:00 02/23/21 08:24 0.9 % Sodium Chloride Flush 3 Ml Syringe IVFLUSH 3 ml QSHIFT ANAT Administration Vitamin D 20 mcg 02/23/21 09:00 02/23/21 08:24 Cholecalciferol (Vitamin D3) 10 Mcg Tablet PO 20 mcg DAILY ANAT Administration <Marisela Pradhan NP - Last Filed: 02/23/21 10:54> Labs CBC & Chem 7: : 02/23/21 05:21 02/23/21 05:21 <Marisela Pradhan NP - Last Filed: 02/23/21 10:54> Assessment and Plan (1) Weakness: Status: Acute <Marisela Pradhan NP - Last Filed: 02/23/21 10:54> Assessment and Plan: 75-year-old woman, who is presenting to the ER with complaints of worsening lower extremity edema, weakness, poor appetite, and blood pressure changes. The patient reports her blood pressure issues have been chronic for man y years, and she follows with Cardiology and Nephrology. She reported since starting chlorthalidone, she has been feeling more weak, nauseous, and having a poor appetite. She has since stopped this medication. General malaise. Likely medication related from chlorthalidone versus blood pressure. Still weak and tired today, likely from BP drop -chlorthalidone stopped -cardiology following Orthostatic hypotension. 134/61, 125/60, 92/57 -on coreg 6.25mg BID, coreg 12.5 BID held Uncontrolled hypertension, chronic. Seen and evaluated by both cardio and nephro -Cortisol added -echo pending 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. -sliding scale -ADA diet. -hold metformin for now. Lower extremity edema. Does not appear to be in overt heart failure. -hold diuresis for now. -add SARAH stockings. Depression/anxiety. -Continue alprazolam. Hypomagnesemia. Resolved -Replete in the ER. -Follow mag. Hyponatremia. Likely secondary to chlorthalidone which was stopped. trending up -Follow BMP. Elevated troponin. No complaints of chest pain. No acute EKG changes. possibly r/t CMP -cardiology following -echo pending Deep vein thrombosis prophylaxis with heparin. Attending: Dr. Bright <Marisela Pradhan NP - Last Filed: 02/23/21 10:54>
--- NOTE | 2021-02-23 09:55 | MHC.CM.PN ---
CM met with Patient at bedside and addressed IMM with her, providing her with the original and placing a copy on the chart. Patient lives alone in her apartment, uses a cane, and she receives [employer] hours/week. The goal is to return home and resume services and CM has initiated and will follow for dc planning. PCP is Dr. Boaz Astorga.
--- NOTE | 2021-02-23 09:56 | CA_ITS ---
Transthoracic Echocardiogram Patient (Last, First, Middle): Alicia Noel, Gender: Female Date of : 1945 Age: 75 Procedure Date: 02/23/2021 Procedure Type: Transthoracic Echocardiogram Location: [facility] [place] Height: 152.4 cm Weight: 77.11 kg BSA: 1.74 m2 Heart Rate: bpm BP: 115 / 59 mmHg Peanut Separator: SHANNA Referring MD: Marisela Pradhan NP Symptoms: elevated trop, non isch cmp Study Quality: Fair ECG Rhythm: Sinus Conclusions: - The left ventricular systolic function is severely decreased. The visually estimated ejection fraction is between 25-30%. Findings Left Ventricle Normal left ventricular cavity size. There is moderately increased left ventricular wall thickness. The left ventricular systolic function is severely decreased. The visually estimated ejection fraction is between 25 30%. There is severe global hypokinesis. There is paradoxical septal motion consistent with a left bundle branch block. E/E prime ratio is between 8 and 15 consistent with indeterminate filling pressures. Evidence suggests grade I (mild) diastolic dysfunction. Prior Study Comparison Changes noted compared to prior study dated: 06/17/2020. LVEF is diminished. Measurements 2D Linear Measurements IVSd: 1.21 0.6-0.9/0.6-1.0 cm LVIDd: 4.62 3.9-5.3/4.2-5.9 cm LVIDd Index: 2.66 2.4-3.2/2.2-3.1 cm/m2 LVIDs: 3.56 2.0-3.6 cm LVPWd: 1.24 0.7-1.1 cm LV Mass: 264.97 67-162/88-224 g LV Mass Index: 152.28 43-95/49-115 g/m2 2D Systolic Function EF 4C: 27.80 >55% EF 2C: 14.90 >55% EF BiP: 21.60 >55% Mitral Valve MV Pk E: 0.47 MV PK A: 0.86 MV Decel Time: 232.00 E/A: 0.50 E'Lateral: 6.00 E'Medial: 3.48 E/E' Med: 13.50 E/E' Lat: 7.90 PHT: 68.00 MVA PHT: 3.24 Decel [place]: 2.03 Diastolic Function MV Pk E: 0.47 MV Pk A: 0.86 E/A: 0.50 E'Medial: 3.48 E/E' Med: 13.50 E' Laterial: 6.00 E/E' Lat: 7.90 Tricuspid Valve TR Pk Marciano: 2.11 TR Pk Grad: 18.00 Updated in Other Vendor System with Status of Final Juve Alcazar MD electronically signed on 02/23/2021 4:29:22 PM with status of Final
--- NOTE | 2021-02-23 10:48 | PM.CNCAR ---
History of Present Illness History of Present Illness Date of Service: 02/23/21 Consult reason: hypertension and troponin elevation Chief complaint: Hypertension Narrative: Alicia has been admitted for weakness and dizziness as well as elevated blood pressure. She is generally followed in our office. Recently seen a few days ago. At that time, she was stating that her blood pressures are running very low into the 80s and 90s. In that instance, we had asked her to cut back on the dose of Coreg. It seems that she did make that change but that subsequently led to markedly high blood pressures leading to systolic in the 180s and 190s and diastolics reaching almost 200 mm Hg. Then she started having some chest pain, felt short of breath, weak and hence admitted. Now she is feeling better. We have been asked to see her to adjust her medications and do the needful. Review of Systems Review of Systems: Yes all other systems are reviewed and are negative Cardiovascular: Cardiovascular: Reports as per HPI, Reports no additional cardiovascular complaints, Denies acrocyanosis, Denies cool extremities, Denies painful fingertips, Reports chest pain, Reports chest pain at rest, Denies diaphoresis, Denies syncope, Denies irregular heart rhythm, Denies claudication, Denies leg edema, Denies lightheadedness, Denies palpitations and Reports dyspnea Respiratory: Respiratory: Reports dyspnea Neurologic: Denies syncope Endocrine: Endocrine: Denies palpitations [facility] Past Medical History Medical History Anxiety Benign essential hypertension Cardiomyopathy Conjunctival hemorrhage of right eye Depression 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 Essential hypertension GERD (gastroesophageal reflux disease) Hyperkalemia Left bundle branch block Nonischemic cardiomyopathy Obesity (BMI 30-39.9) Pure hypercholesterolemia Renal artery stenosis Stasis dermatitis of both legs Stasis edema of both lower extremities Urinary incontinence Family History Family History Father CVD (cardiovascular disease) Myocardial infarction Mother Myocardial infarction CVD (cardiovascular disease) Brother Myocardial infarction Family/Other FH: prostate cancer Surgical History Surgical History History of cataract surgery History of cholecystectomy History of lumpectomy of left breast Hx of colonoscopy Hx of myomectomy Social History Social History Household Members: None Housing: Apartment Do you presently have visiting nurse or other home services: No Alcohol intake: never Smoking Status: Never smoker Use of substances other than those prescribed or required for medical reasons: No Currently Displaying Signs/Symptoms of Drug Intoxication Withdrawal: No Have you been hit, kicked, punched, or otherwise hurt by someone within the past year? If so, by whom?: No Do you feel safe in your current relationship?: No Current Relationship Is there a partner from a previous relationship who is making you feel unsafe now?: No Are you made to feel afraid or neglected: No Advance Directives: No Advance Directives Information Provided: Yes Do you have thoughts of harming others: None Do you have a plan to hurt others: No Plan Recently lost weight without trying: No Nutrition Risks: No Nutritional Risk Patient : No : No Poor oral hygiene: No service: No Current occupational status: disabled Meds Allergies Allergy/AdvReac Type Severity Reaction Status Date / Time aspirin [Aspirin] Allergy Severe MOUTH Verified 02/17/21 12:46 SWELLING hydrochlorothiazide Allergy Intermediate DROP IN Verified 02/17/21 12:46 [Hydrochlorothiazide] BLOOD PRESSURE Penicillins [PENICILLINS] Allergy Intermediate ITCHING Verified 02/17/21 12:46 caffeine [Caffeine] Allergy Mild NERVOUSNESS Verified 02/17/21 12:46 lisinopril [Lisinopril] Allergy Mild CHANGES IN Verified 02/17/21 12:46 BLOOD PRESSURE ranitidine [RANITIDINE] Allergy Mild HEADACHE Verified 02/17/21 12:46 amlodipine [AMLODIPINE] Allergy Unknown UNKNOWN Verified 02/17/21 12:46 amoxicillin Allergy Unknown itching, Verified 02/17/21 12:46 severe with rash diclofenac Allergy Unknown Unknown Verified 02/17/21 12:46 escitalopram Allergy Unknown abdominal Verified 02/17/21 12:46 discomfort, drowsiness esomeprazole [Nexium] Allergy Unknown Unknown Verified 02/17/21 12:46 isosorbide [ISOSORBIDE] Allergy Unknown UNKNOWN Verified 02/17/21 12:46 lidocaine [Lidoderm] Allergy Unknown weakness Verified 02/17/21 12:46 mirtazapine Allergy Unknown Unknown Verified 02/17/21 12:46 nystatin Allergy Unknown rash Verified 02/17/21 12:46 penicillin V Allergy Unknown Itching, Verified 02/17/21 12:46 rash all over body sertraline [SERTRALINE] Allergy Unknown UNKNOWN Verified 02/17/21 12:46 dexlansoprazole AdvReac Severe AGITATION Verified 02/17/21 12:46 [From DEXILANT] hydrocortisone AdvReac Mild RAISES Verified 02/17/21 12:46 [From Cortizone-10] BLOOD SUGAR topiramate [From TOPAMAX] AdvReac Unknown AGITATION Verified 02/17/21 12:46 DEXITANT Allergy Unknown CHEST PAIN Uncoded 02/17/21 12:46 From PLAVIX Allergy Unknown PT UNSURE Uncoded 02/17/21 12:46 OF REACTION Medical tape Allergy Unknown Rash Uncoded 02/17/21 12:46 Active Medications: Current Medications Generic Name Dose Route Start Last Admin Trade Name Freq PRN Reason Stop Dose Admin Acetaminophen 650 mg 02/22/21 16:35 Acetaminophen 325 Mg Tablet PO Q6H PRN Pain, Mild (Pain Scale 1-3) Al Hydroxide/Mg Hydroxide 10 ml 02/22/21 17:09 Magnesium Hydrox/Alum Hydrox 30 Ml Oral.Susp PO ONCE PRN Stomach Upset Alprazolam 0.5 mg 02/22/21 16:35 02/23/21 02:44 Alprazolam 0.5 Mg Tablet PO 0.5 mg BID PRN Administration Anxiety Atorvastatin Calcium 80 mg 02/23/21 21:00 Atorvastatin Calcium 80 Mg Tablet PO BEDTIME ANAT Buspirone HCl 7.5 mg 02/23/21 09:00 02/23/21 08:24 Buspirone Hcl 5 Mg Tablet PO 7.5 mg DAILY ANAT Administration Carvedilol 6.25 mg 02/22/21 21:00 02/23/21 08:24 Carvedilol 6.25 Mg Tablet PO 6.25 mg BID ANAT Administration Protocol Losartan Potassium 100 mg 02/23/21 09:00 02/23/21 08:24 Losartan Potassium 50 Mg Tablet PO 100 mg DAILY ANAT Administration Protocol Omeprazole 20 mg 02/23/21 07:00 02/23/21 08:24 Omeprazole 20 Mg Capsule. PO 20 mg DAILY@0630 ANAT Administration Ondansetron HCl 4 mg 02/22/21 16:35 Ondansetron Hcl 4 Mg/2 Ml Vial IVPUSH Q8H PRN Nausea and Vomiting Pharmacy Consult 1 each 02/22/21 13:08 Consult Rx Perform Med Rec MISCELLANE ONCE PRN Consult order Senna 17.2 mg 02/22/21 16:35 Sennosides 8.6 Mg Tablet PO DAILY PRN constipation Sitagliptin Phosphate 100 mg 02/23/21 09:00 02/23/21 08:24 Sitagliptin Phosphate 100 Mg Tablet PO 100 mg DAILY ANAT Administration Sodium Chloride 3 ml 02/23/21 00:00 02/23/21 08:24 0.9 % Sodium Chloride Flush 3 Ml Syringe IVFLUSH 3 ml QSHIFT ANAT Administration Vitamin D 20 mcg 02/23/21 09:00 02/23/21 08:24 Cholecalciferol (Vitamin D3) 10 Mcg Tablet PO 20 mcg DAILY ANAT Administration Home Medications Medication Instructions Recorded Confirmed Last Taken Type acetaminophen 500 mg tablet 500 mg PO .TWICE A DAY PRN tab 08/16/20 02/22/21 Unknown History alprazolam 0.5 mg tablet 0.5 mg PO BID PRN 08/16/20 02/22/21 02/22/21 History aluminum-mag hydroxide-simethicone 10 ml PO ONCE PRN ml 08/16/20 02/22/21 02/21/21 History 200 mg-200 mg-20 mg/5 mL oral susp buspirone 7.5 mg tablet 7.5 mg PO DAILY 08/16/20 02/22/21 02/21/21 History chlorthalidone 25 mg tablet 25 mg PO QAM 10/26/20 02/22/21 02/21/21 History carvedilol 1 tab PO BID 02/22/21 02/22/21 02/22/21 History cholecalciferol (vitamin D3) 2 cap PO DAILY 02/22/21 02/22/21 02/21/21 History [Vitamin D3] ciclopirox 1 applic TOPICAL BID 02/22/21 02/22/21 02/21/21 History Physical Exam Vital Signs: Vital Signs: Last Vital Signs Temp 98 F 02/23/21 07:09 Pulse 96 02/23/21 08:24 Resp 19 02/23/21 07:09 BP 115/59 L 02/23/21 08:24 Pulse Ox 97 02/23/21 07:09 Body Mass Index 33.3 Const: General: cooperative, comfortable and no acute distress Orientation/consciousness: patient oriented x3 HENMT: Other: Unremarkable Neck: Neck: Yes normal visual inspection Chest: Chest palpation & inspection: normal inspection of the chest Resp: Auscultation: clear to auscultation bilaterally, no crackles and no wheezes Cardio: Jugular venous distension: no JVD Palpation: normal PMI Heart sounds: S1 normal heart sound present, S2 normal heart sound present, no gallops, no murmurs and no rubs GI: Palpation (GI): Soft to palpation Back/Spine/Pelvis: Other: unremarkable Skin: General skin exam: no rashes or lesions noted Neuro: General: patient oriented x3 Extrem: General: Yes edema (1+) Psych: Mental Status: mental status grossly normal Results Labs and Meds Result diagrams: 02/23/21 05:21 02/23/21 05:21 Lab results: Laboratory Results - last 24 hr 02/22/21 02/22/21 02/22/21 11:51 11:51 13:59 WBC RBC Hgb Hct MCV MCH MCHC RDW Plt Count MPV Immature Gran % (Auto) Neut % (Auto) Lymph % (Auto) [place] % (Auto) Eos % (Auto) Baso % (Auto) Lymph # (Auto) [place] # (Auto) Eos # (Auto) Baso # (Auto) Abs Immat Gran (auto) Absolute Neuts (auto) Absolute Nucleated RBC Nucleated RBC % (auto) Sodium 129 L Potassium Chloride Carbon Dioxide Anion Gap BUN Creatinine Estim Creat Clear Calc Estimated GFR POC Glucose Random Glucose Calcium Magnesium Troponin I High Sens 97.6 H D B-Natriuretic Peptide COVID-19 ([facility]) Negative COVID-19 Clin Com See Note 02/22/21 02/23/21 02/23/21 13:59 05:21 05:21 WBC 5.1 RBC 3.88 L Hgb 11.3 L Hct 33.5 L MCV 86.3 MCH 29.1 MCHC 33.7 RDW 15.3 Plt Count 256 MPV 11.7 Immature Gran % (Auto) 0.8 H Neut % (Auto) 60.1 Lymph % (Auto) 24.1 [place] % (Auto) 13.8 H Eos % (Auto) 0.6 Baso % (Auto) 0.6 Lymph # (Auto) 1.2 [place] # (Auto) 0.7 Eos # (Auto) 0.0 Baso # (Auto) 0.0 Abs Immat Gran (auto) 0.04 H Absolute Neuts (auto) 3.0 Absolute Nucleated RBC 0.000 Nucleated RBC % (auto) 0.0 Sodium 131 L Potassium 4.0 Chloride 96 Carbon Dioxide 26 Anion Gap 13 BUN 16 Creatinine 1.26 Estim Creat Clear Calc 34.3 Estimated GFR 41 POC Glucose Random Glucose 138 H Calcium 9.6 D Magnesium Troponin I High Sens B-Natriuretic Peptide 294 H COVID-19 ([facility]) COVID-19 [place] 02/23/21 02/23/21 02/23/21 05:21 05:21 07:22 WBC RBC Hgb Hct MCV MCH MCHC RDW Plt Count MPV Immature Gran % (Auto) Neut % (Auto) Lymph % (Auto) [place] % (Auto) Eos % (Auto) Baso % (Auto) Lymph # (Auto) [place] # (Auto) Eos # (Auto) Baso # (Auto) Abs Immat Gran (auto) Absolute Neuts (auto) Absolute Nucleated RBC Nucleated RBC % (auto) Sodium Potassium Chloride Carbon Dioxide Anion Gap BUN Creatinine Estim Creat Clear Calc Estimated GFR POC Glucose 169 H Random Glucose Calcium Magnesium 1.8 Troponin I High Sens 144.2 H B-Natriuretic Peptide 775 H COVID-19 ([facility]) COVID-19 Clin [place] ECG Attestation: I personally reviewed and interpreted this ECG as follows: Interpretation: Admission EKG with sinus rhythm at 74/Min and left bundle-branch block pattern. In the lateral leads, there is more prominent T inversion compared to prior. Assessment and Plan (1) Hypertensive urgency: Status: Acute (2) Nonischemic cardiomyopathy: Status: Acute (3) Left bundle branch block: Status: Acute (4) Elevated troponin: Status: Acute Her blood pressure is very labile. However, current blood pressures is after hospitalization have been reasonable. She is now on carvedilol 6.25 b.i.d. and losartan 100 mg daily. We can continue these medications and monitor her blood pressure. With regard to troponins, possibly from hypertensive urgency itself. Her last myocardial perfusion imaging studies from 2017 that shows no ischemia or infarction but findings consistent with underlying left bundle-branch block itself. In 2008, she underwent cardiac catheterization that showed only minor irregularities and coronaries but was otherwise unremarkable.
[2021-02-23 11:16] LABS: Glucose, Whole Blood 156 mg/dL (60-115)
[2021-02-23 16:29] LABS: Glucose, Whole Blood 157 mg/dL (60-115)
[2021-02-23] MEDS: Atorvastatin Calcium 80 MG TABLET PO (19:47)
[2021-02-23 20:28] LABS: Glucose, Whole Blood 174 mg/dL (60-115)
[2021-02-24] VITALS (9 sets, daily range): BP systolic 86–152; BP diastolic 54–65; PULSE 61–78; RESP 16–18; TEMP 36.1–37; O2SAT 96–98
[2021-02-24] MEDS: Omeprazole 20 MG CAPSULE.DR PO (05:40)
[2021-02-24 07:37] LABS: Glucose, Whole Blood 136 mg/dL (60-115)
[2021-02-24] MEDS: busPIRone HCl 5 MG TABLET 7.5 MG PO (08:14)
[2021-02-24] MEDS: Cholecalciferol (Vitamin D3) 10 MCG TABLET 20 MCG PO (08:14)
[2021-02-24] MEDS: carvediloL 6.25 MG TABLET PO (08:14)
[2021-02-24] MEDS: 0.9 % Sodium Chloride Flush 3 ML SYRINGE IVFLUSH (08:14)
[2021-02-24] MEDS: SITagliptin Phosphate 100 MG TABLET PO (08:14)
[2021-02-24] MEDS: Losartan Potassium 50 MG TABLET 100 MG PO (08:14)
[2021-02-24 11:12] LABS: Glucose, Whole Blood 205 mg/dL (60-115)
--- NOTE | 2021-02-24 11:44 | P.PNCA_ITS ---
Subjective Subjective Date of Service: 02/24/21 Interval history: She states that she feels okay. No specific complaints. Review of Systems Review of Systems Yes all other systems are reviewed and are negative Cardiovascular: Reports as per HPI, Reports no additional cardiovascular complaints, Denies acrocyanosis, Denies cool extremities, Denies painful fi ngertips, Reports chest pain, Reports chest pain at rest, Denies diaphoresis, Denies syncope, Denies irregular heart rhythm, Denies claudication, Denies leg edema, Denies lightheadedness, Denies palpitations and Reports dyspnea Respiratory: Reports dyspnea Denies syncope Endocrine: Denies palpitations Physical Exam Vital Signs: Last Vital Signs Temp 97.1 F 02/24/21 07:58 Pulse 78 02/24/21 09:28 Resp 17 02/24/21 07:58 BP 106/56 L 02/24/21 09:28 Pulse Ox 98 02/24/21 07:58 Body Mass Index 33.3 Const General: cooperative, comfortable and no acute distress Orientation/consciousness: patient oriented x3 HENMT Other: Unremarkable Neck Neck: Yes normal visual inspection Chest Chest palpation & inspection: normal inspection of the chest Resp Auscultation: clear to auscultation bilaterally, no crackles and no wheezes Cardio Jugular venous distension: no JVD Palpation: normal PMI Heart sounds: S1 normal heart sound present, S2 normal heart sound present, no gallops, no murmurs and no rubs GI Palpation (GI): Soft to palpation Back/Spine/Pelvis Other: unremarkable Skin General skin exam: no rashes or lesions noted Neuro General: patient oriented x3 Extrem General: Yes edema (1+) Psych Mental Status: mental status grossly normal Results Labs and Meds Result diagrams: 02/23/21 05:21 02/23/21 05:21 Lab results: Laboratory Results - last 24 hr 02/23/21 02/23/21 02/24/21 16:25 20:21 07:30 POC Glucose 157 H 174 H 136 H 02/24/21 11:02 POC Glucose 205 H Progress Note: A&P Assessment and plan (1) Hypertensive urgency: Status: Acute (2) Nonischemic cardiomyopathy: Status: Acute (3) Left bundle branch block: Status: Acute (4) Elevated troponin: Status: Acute Assessment and Plan: Today's morning, there was an orthostatic blood pressure drop, but she states that she did not get any dizzy sensations are presyncopal. She is now on Carvedilol 6.25 b.i.d. and Losartan 100 mg daily. We can continue these medications and monitor her blood pressure. With regard to troponins, possibly from hypertensive urgency itself. Her last myocardial perfusion imaging studies from 2016 that shows no ischemia or infarction but findings consistent with underlying left bundle-branch block itself. In 2008, she underwent cardiac catheterization that showed only minor irregularities and coronaries but was otherwise unremarkable. Echocardiogram this admission shows LVEF of 25-30% which is lower than prior study and could be from hypertension itself. Fall Risk Details Current Medications: Current Medications Generic Name Dose Route Start Last Admin Trade Name Freq PRN Reason Stop Dose Admin Acetaminophen 650 mg 02/22/21 16:35 Acetaminophen 325 Mg Tablet PO Q6H PRN Pain, Mild (Pain Scale 1-3) Al Hydroxide/Mg Hydroxide 10 ml 02/22/21 17:09 Magnesium Hydrox/Alum Hydrox 30 Ml Oral.Susp PO ONCE PRN Stomach Upset Alprazolam 0.5 mg 02/22/21 16:35 02/23/21 21:45 Alprazolam 0.5 Mg Tablet PO 0.5 mg BID PRN Administration Anxiety Atorvastatin Calcium 80 mg 02/23/21 21:00 02/23/21 19:47 Atorvastatin Calcium 80 Mg Tablet PO 80 mg BEDTIME ANAT Administration Buspirone HCl 7.5 mg 02/23/21 09:00 02/24/21 08:14 Buspirone Hcl 5 Mg Tablet PO 7.5 mg DAILY ANAT Administration Carvedilol 6.25 mg 02/22/21 21:00 02/24/21 08:14 Carvedilol 6.25 Mg Tablet PO 6.25 mg BID ANAT Administration Protocol Losartan Potassium 100 mg 02/23/21 09:00 02/24/21 08:14 Losartan Potassium 50 Mg Tablet PO 100 mg DAILY ANAT Administration Protocol Omeprazole 20 mg 02/23/21 07:00 02/24/21 05:40 Omeprazole 20 Mg Capsule. PO 20 mg DAILY@0630 ANAT Administration Ondansetron HCl 4 mg 02/22/21 16:35 Ondansetron Hcl 4 Mg/2 Ml Vial IVPUSH Q8H PRN Nausea and Vomiting Pharmacy Consult 1 each 02/22/21 13:08 Consult Rx Perform Med Rec MISCELLANE ONCE PRN Consult order Senna 17.2 mg 02/22/21 16:35 Sennosides 8.6 Mg Tablet PO DAILY PRN constipation Sitagliptin Phosphate 100 mg 02/23/21 09:00 02/24/21 08:14 Sitagliptin Phosphate 100 Mg Tablet PO 100 mg DAILY ANAT Administration Sodium Chloride 3 ml 02/23/21 00:00 02/24/21 08:14 0.9 % Sodium Chloride Flush 3 Ml Syringe IVFLUSH 3 ml QSHIFT ANAT Administration Vitamin D 20 mcg 02/23/21 09:00 02/24/21 08:14 Cholecalciferol (Vitamin D3) 10 Mcg Tablet PO 20 mcg DAILY ANAT Administration Time Spent With Patient Time: Total time spent is greater than 50% in coordination of care (as documented) at patient's floor/unit and/or counseling patient: Time with patient: less than 15 minutes
--- NOTE | 2021-02-24 13:25 | PM.DS ---
DS: Providers Provider Date of Service: 03/02/21 Date of admission: 02/22/21 16:35 Primary care physician: Boaz Astorga MD Consults: 02/22/21 16:35 Consult to Cardiology Routine Consulting Provider: Nick Rivera Reason for consultation: htn Has provider been notified: No Consult to Nephrology Routine Consulting Provider: Maverick Santiago Reason for consultation: uncontrolled htn, chlorthalidone stopped Has provider been notified: No DS: Diagnosis Discharge Diagnosis (1) Hypertensive urgency: Status: Resolved (2) Nonischemic cardiomyopathy: Status: Resolved (3) Left bundle branch block: Status: Resolved (4) Elevated troponin: Status: Resolved DS: Medications Discharge Medications Home Medications: Home Medications Medication Instructions Recorded Confirmed acetaminophen 500 mg tablet 500 mg PO .TWICE A DAY PRN tab 08/16/20 02/22/21 alprazolam 0.5 mg tablet 0.5 mg PO BID PRN 08/16/20 02/22/21 aluminum-mag hydroxide-simethicone 10 ml PO ONCE PRN ml 08/16/20 02/22/21 200 mg-200 mg-20 mg/5 mL oral susp buspirone 7.5 mg tablet 7.5 mg PO DAILY 08/16/20 02/22/21 chlorthalidone 25 mg tablet 25 mg PO QAM 10/26/20 02/22/21 carvedilol 1 tab PO BID 02/22/21 02/22/21 cholecalciferol (vitamin D3) 2 cap PO DAILY 02/22/21 02/22/21 [Vitamin D3] ciclopirox 1 applic TOPICAL BID 02/22/21 02/22/21 Previous Rx's Medication Instructions Recorded sitagliptin 100 mg tablet 100 mg PO DAILY #90 tab 11/24/20 metformin 500 mg tablet 1,000 mg PO BID #360 tab 01/09/21 pantoprazole 40 mg tablet,delayed 40 mg PO DAILY #90 tab 01/15/21 release losartan 100 mg tablet 100 mg PO DAILY #90 tab 01/16/21 sennosides 8.6 mg tablet 17.2 mg PO DAILY PRN 30 Days #60 01/21/21 tab clotrimazole-betamethasone 1 1 appl TOPICAL BID PRN #30 g 01/28/21 %-0.05 % topical cream carvedilol 6.25 mg tablet 6.25 mg PO BID #180 tab 01/30/21 rosuvastatin 40 mg tablet 40 mg PO DAILY #90 tab 02/15/21 DS: Summary Hospital Course Hospital Course: 75-year-old female with hypertension who takes multiple medication and recently was started on the chlorthalidone she is reporting that her she takes medication she was feeling dizzy and having nausea therefore was not taking it she also took care Coreg 12.5 mg twice a day which has been reduced to 6.25 since that she started taking the chlorthalidone Time Spent with Patient Time attestation: Total time spent providing and/or coordinating discharge services: Discharge coordination time: Greater than 30 minutes Physical Exam Vital Signs: Vital Signs: Last Vital Signs Temp 98.6 F 02/24/21 11:49 Pulse 61 02/24/21 11:49 Resp 17 02/24/21 11:49 BP 123/59 L 02/24/21 11:49 Pulse Ox 98 02/24/21 11:49 Body Mass Index 33.3 DS: Data Data Completed and Pending Labs on day of discharge: Laboratory Results - last 24 hr 02/23/21 02/23/21 02/24/21 16:25 20:21 07:30 POC Glucose 157 H 174 H 136 H 02/24/21 11:02 POC Glucose 205 H Discharge Plan Discharge Anticipated Discharge Date/Time: 02/24/21 13:16 Patient Disposition: Home Health Service Discharge Diagnosis: Elevated Referrals: Boaz Astorga MD [Primary Care Provider] - 1 Week Discharge Medications: Continued sitagliptin [Januvia] 100 mg tablet 100 mg PO DAILY Qty: 90 RF: 1 metformin 500 mg tablet 1,000 mg PO BID Qty: 360 RF: 0 pantoprazole 40 mg tablet,delayed release (DR/EC) 40 mg PO DAILY Qty: 90 RF: 0 losartan 100 mg tablet 100 mg PO DAILY Qty: 90 RF: 0 sennosides 8.6 mg tablet 17.2 mg PO DAILY PRN (Reason: constipation) 30 Days Qty: 60 RF: 1 clotrimazole-betamethasone 1-0.05 % cream 1 appl topical BID PRN (Reason: dermatitis ) Qty: 30 RF: 3 carvedilol 6.25 mg tablet 6.25 mg PO BID Qty: 180 RF: 0 rosuvastatin 40 mg tablet 40 mg PO DAILY Qty: 90 RF: 1 cholecalciferol (vitamin D3) [Vitamin D3] 10 mcg (400 unit) capsule 2 cap PO DAILY RF: 0 ciclopirox 0.77 % cream 1 applic topical BID RF: 0 buspirone 7.5 mg tablet 7.5 mg PO DAILY RF: 0 alprazolam 0.5 mg tablet 0.5 mg PO BID PRN (Reason: Anxiety) RF: 0 acetaminophen [Tylenol Extra Strength] 500 mg tablet 500 mg PO .TWICE A DAY PRN (Reason: Pain) RF: 0 alum-mag hydroxide-simeth 200-200-20 mg/5 mL suspension 10 ml PO ONCE PRN (Reason: Stomach Upset) RF: 0 chlorthalidone 25 mg tablet 25 mg PO QAM RF: 0 Discontinued carvedilol 12.5 mg tablet 1 tab PO BID RF: 0 No Action ondansetron 4 mg tablet,disintegrating 4 mg PO Q8H PRN (Reason: nausea and vomiting) Qty: 20 RF: 0 Discharge Orders: Discharge Order (Routine); Ordered 02/24/21 Ordered By: Davy Bright Diet: advance to usual diet Activity on Discharge: No Running or jogging Stand Alone Forms: Patient Portal Discharge page Care Plan Goals: prevent rehospitalization Health Concerns: weakness, fluctuating blood press Plan of Treatment: Take your medications as prescribed and follow up with your doctor in a week, call for appointment Assessment: Dizziness, weakness ht at has resolved Discharge Date/Time: 02/24/21 18:28
--- NOTE | 2021-02-24 14:56 | MHC.CM.PN ---
DP Home with [facility]. Discharge was anticipated today. May be on hold. Repeat labs ordered. Trop trending up. PT eval recommended STR. PT was dizzy at time of eval. She declines STR today. CM will follow for a change in DP needs.
[2021-02-24 14:58] LABS: Troponin-I High Sensitivity 42.5 ng/L (<3.5-17.0)
--- NOTE | 2021-02-24 16:05 | MHC.CM.PN ---
DP discharge to home today with [facility] SN and PT via BLS.
[2021-02-24] MEDS: ALPRAZolam 0.5 MG TABLET PO (16:09)
[2021-02-24 16:32] LABS: Glucose, Whole Blood 156 mg/dL (60-115)
== END 2021-02-24 18:28 | disposition home health service (06) | DRG 305 ==
LOC: HO.ED 13:02 → HO.EDOVER 16:45 → HO.IMC 19:17
PROVIDERS: Internal Medicine Nephrology; Admitting Provider Nurse Practitioner Acute Care; Emergency Provider Emergency Medicine; PCP Internal Medicine; Visit Provider Internal Medicine
DX: I16.0 Hypertensive urgency (principal); E87.1 Hypo-osmolality and hyponatremia; I42.8 Other cardiomyopathies; K21.9 Gastro-esophageal reflux disease without esophagitis; E83.42 Hypomagnesemia; F41.9 Anxiety disorder, unspecified; I10 Essential (primary) hypertension; I95.1 Orthostatic hypotension; I44.7 Left bundle-branch block, unspecified; F32.9 Major depressive disorder, single episode, unspecified; Z20.822 Contact with and (suspected) exposure to COVID-19; Z88.0 Allergy status to penicillin; Z88.6 Allergy status to analgesic agent; Z79.899 Other long term (current) drug therapy
CPT/HCPCS: 36415; 71045; 80048; 80076; 81001; 81003; 82533; 82947; 83735; 83880; 84295; 84484; 85025; 87086; 87635; 93005; 93308; 96365; 96366; 97162; 99285; J3475

== ENCOUNTER → 2021-02-28 14:21 | Outpatient (BNVA) | payer OTHER, SELFPAY | PROVIDERS: PCP Internal Medicine; Visit Provider Nurse Practitioner Family | DX: Z13.89 Encounter for screening for other disorder (principal) | CPT/HCPCS: Q3014 ==

== ENCOUNTER → 2021-03-09 14:41 | Outpatient (BNVA) | payer OTHER, SELFPAY | PROVIDERS: PCP Internal Medicine; Referring Provider Internal Medicine; Visit Provider Nurse Practitioner Family | DX: K21.9 Gastro-esophageal reflux disease without esophagitis (principal); K59.00 Constipation, unspecified; R11.0 Nausea | CPT/HCPCS: 99212 ==

== ENCOUNTER → 2021-04-27 13:32 | Outpatient (BNVA) | payer OTHER, SELFPAY | PROVIDERS: PCP Internal Medicine; Referring Provider Internal Medicine; Visit Provider Nurse Practitioner Family | DX: Z12.11 Encounter for screening for malignant neoplasm of colon (principal); K21.9 Gastro-esophageal reflux disease without esophagitis; K59.00 Constipation, unspecified | CPT/HCPCS: Q3014 ==

== ENCOUNTER 2021-04-28 10:41 | Outpatient (REF) | payer OTHER, SELFPAY ==
[2021-04-28 10:46] LABS: MANUAL DIFF FLAG NO
[2021-04-28 11:11] LABS: Basophils Percent Auto 0.6 % (0-2); Eosinophils Absolute Auto 0.1 X10*3/uL (0.0-0.4); Eosinophils Percent Auto 1.6 % (0-4); Hematocrit 33.6 % (37-47); Hemoglobin 10.6 g/dl (12.0-16.0); Imm Gran Abs Auto 0.01 X10*3/uL (0.00-0.03); Imm Gran Pct Auto 0.2 % (0.0-0.4); Lymphocytes Absolute Auto 1.1 X10*3/uL (1.2-4.9); Lymphocytes Percent Auto 22.4 % (20-40); Mean Corpuscular HGB Conc 31.5 g/dl (31.0-35.0); Mean Corpuscular Hemoglobin 29.4 pg (27.0-33.0); Mean Corpuscular Volume 93.1 fL (80-98); Monocytes Absolute Auto 0.6 X10*3/uL (0.1-1.2); Neutrophils Absolute Auto 3.1 X10*3/uL (2.0-8.3); Neutrophils Percent Auto 63.2 % (45-73); Platelet Count 242 X10*3/uL (160-400); Red Blood Count 3.61 X10*6/uL (4.20-5.50); Red Cell Distribution Width 15.2 % (11.0-16.0); White Blood Count 4.9 X10*3/uL (4.8-10.8)
[2021-04-28 11:37] LABS: Glucose Urine UA NEG (NEG); Leukocyte Esterase Urine 1+ (NEG); Nitrite Urine NEG (NEG); PH 6.5 (5.0-8.0); UACC Culture Trigger YES; Urine Blood 1+ (NEG); Urine Ketones NEG (NEG); Urine Protein 1+ MG/DL (NEG-TRACE)
[2021-04-28 11:40] LABS: Creatinine Urine 53.74 mg/dL
[2021-04-28 11:42] LABS: Anion Gap 15 (12-20); Blood Urea Nitrogen 23 mg/dL (9-16); Calcium 9.9 mg/dL (8.4-10.2); Carbon Dioxide 24 mmol/L (22-29); Chloride 106 mmol/L (96-108); Cholesterol 132 mg/dL; Estimated Glomerular Filt Rate 36; Glucose Fasting 102 mg/dL (60-99); HDL Cholesterol 60 mg/dL; LDL Cholesterol Calculated 60 mg/dl; Potassium 4.5 mmol/L (3.3-5.1); Sodium 140 mmol/L (135-145); Triglycerides 64 mg/dL
[2021-04-28 11:45] LABS: Appearance Urine CLEAR; Color Urine YELLOW
[2021-04-28 12:09] LABS: Squamous Epithelial Cell Urine 1+ /LPF
[2021-04-28 12:10] LABS: Oval Fat Bodies Urine NOTED
== END 2021-04-28 10:42 | disposition home or self-care (01) ==
LOC: HO.LNP 10:41
PROVIDERS: Visit Provider Internal Medicine
DX: E11.9 Type 2 diabetes mellitus without complications (principal); E78.00 Pure hypercholesterolemia, unspecified; I10 Essential (primary) hypertension; I42.8 Other cardiomyopathies; I44.7 Left bundle-branch block, unspecified
CPT/HCPCS: 80048; 80061; 81001; 81003; 82043; 85025; 87086; 99212

== ENCOUNTER 2021-05-02 20:06 | Emergency (ER) | payer OTHER, SELFPAY ==
--- NOTE | ~2021-05-02 | XR_ITS ---
EXAMINATION: PORTABLE CHEST 1 VIEW CLINICAL INFORMATION: chest pain . COMPARISON: 02/22/2021. TECHNIQUE: Portable frontal view of the chest was obtained. FINDINGS: The lungs are well expanded. No focal infiltrate, effusion, edema, or pneumothorax. Cardiac and mediastinal silhouettes are within normal limits for size with mild vascular calcification in the tortuous aorta. Degenerative changes in the spine and shoulders again noted. No acute bony abnormality seen. XR/XR chest 1V IMPRESSION: No evidence of acute disease.
[2021-05-02 20:24] VITALS: BP 180/77; BP 180/90; PULSE 80; PULSE 84; RESP 17; TEMP 36.8; O2SAT 96; O2SAT 98; BMI 31.6
--- NOTE | 2021-05-02 20:28 | ECG_ITS ---
Test Reason : chest pain Blood Pressure : / mmHG Vent. Rate : 079 BPM Atrial Rate : 079 BPM P-R Int : 152 ms QRS Dur : 146 ms QT Int : 442 ms P-R-T Axes : 064 -25 087 degrees QTc Int : 506 ms Normal sinus rhythm Possible Left atrial enlargement Left bundle branch block Abnormal ECG When compared with ECG of 22-FEB-2021 07:58, No significant change was found Referred By: Generic ED Physician Electronically Signed By:Erasmo Pulido
--- NOTE | 2021-05-02 20:45 | PC.NURSE ---
CALLED [facility] FOR EKG NO RESPONSE.
[2021-05-02 22:46] LABS: MANUAL DIFF FLAG NO
[2021-05-02 22:48] LABS: Basophils Percent Auto 0.5 % (0-2); Eosinophils Percent Auto 0.7 % (0-4); Hematocrit 35.5 % (37-47); Hemoglobin 11.4 g/dl (12.0-16.0); Imm Gran Abs Auto 0.01 X10*3/uL (0.00-0.03); Imm Gran Pct Auto 0.2 % (0.0-0.4); Lymphocytes Absolute Auto 1.1 X10*3/uL (1.2-4.9); Lymphocytes Percent Auto 18.2 % (20-40); Mean Corpuscular HGB Conc 32.1 g/dl (31.0-35.0); Mean Corpuscular Hemoglobin 29.6 pg (27.0-33.0); Mean Corpuscular Volume 92.2 fL (80-98); Mean Platelet Volume 10.8 fL (9.4-12.3); Monocytes Absolute Auto 0.6 X10*3/uL (0.1-1.2); Monocytes Percent Auto 11.1 % (2-11); Neutrophils Percent Auto 69.3 % (45-73); Platelet Count 262 X10*3/uL (160-400); Red Blood Count 3.85 X10*6/uL (4.20-5.50); Red Cell Distribution Width 14.7 % (11.0-16.0); White Blood Count 5.8 X10*3/uL (4.8-10.8)
[2021-05-02 23:10] LABS: Anion Gap 14 (12-20); Blood Urea Nitrogen 20 mg/dL (9-16); Calcium 10.3 mg/dL (8.4-10.2); Carbon Dioxide 27 mmol/L (22-29); Chloride 102 mmol/L (96-108); Creatinine Clr Calc Pharmacy 25.7; Estimated Glomerular Filt Rate 30; Glucose Random 130 mg/dL (60-115); Potassium 4.1 mmol/L (3.3-5.1); Sodium 139 mmol/L (135-145)
[2021-05-02 23:19] LABS: Troponin-I High Sensitivity 40.3 ng/L (<3.5-17.0)
--- NOTE | 2021-05-02 23:37 | ED_ITS ---
HPI - Chest Pain General Chief Complaint: Chest Pain Stated Complaint: high blood pressure Time Seen by Provider: 05/02/21 23:37 Source: patient Mode of arrival: ambulatory Limitations: no limitations History of Present Illness HPI narrative: Patient history of anxiety., CKD, hypertension under increased stress after hearing the news about to her nephew on arrival patient's blood pressure was 180/77, patient lives alone patient also complaining of chest pain which started yesterday Related Data Home Medications Medication Instructions Recorded Confirmed acetaminophen 500 mg tablet 500 mg PO .TWICE A DAY PRN tab 08/16/20 04/28/21 alprazolam 0.5 mg tablet 0.5 mg PO BID PRN 08/16/20 04/28/21 aluminum-mag hydroxide-simethicone 10 ml PO ONCE PRN ml 08/16/20 04/28/21 200 mg-200 mg-20 mg/5 mL oral susp buspirone 7.5 mg tablet 7.5 mg PO DAILY 08/16/20 04/28/21 ciclopirox 1 applic TOPICAL BID 02/22/21 04/28/21 multivitamin 1 tab PO DAILY 03/09/21 04/28/21 metformin 500 mg tablet 500 mg PO BID tab 04/28/21 04/28/21 Previous Rx's Medication Instructions Recorded sitagliptin 100 mg tablet 100 mg PO DAILY #90 tab 11/24/20 sennosides 8.6 mg tablet 17.2 mg PO DAILY PRN 30 Days #60 01/21/21 tab carvedilol 6.25 mg tablet 6.25 mg PO BID #180 tab 01/30/21 rosuvastatin 40 mg tablet 40 mg PO DAILY #90 tab 02/15/21 ondansetron 4 mg disintegrating 4 mg PO Q8H PRN #20 tab 02/28/21 tablet losartan 100 mg tablet 100 mg PO DAILY #90 tab 04/26/21 clotrimazole-betamethasone 1 1 appl TOPICAL BID PRN #30 g 04/27/21 %-0.05 % topical cream pantoprazole 40 mg tablet,delayed 40 mg PO DAILY #90 tab 04/27/21 release furosemide 20 mg tablet 20 mg PO DAILY #90 tab 04/28/21 Allergies Allergy/AdvReac Type Severity Reaction Status Date / Time aspirin [Aspirin] Allergy Severe MOUTH Verified 05/02/21 20:24 SWELLING hydrochlorothiazide Allergy Intermediate DROP IN Verified 05/02/21 20:24 [Hydrochlorothiazide] BLOOD PRESSURE Penicillins [PENICILLINS] Allergy Intermediate ITCHING Verified 05/02/21 20:24 caffeine [Caffeine] Allergy Mild NERVOUSNESS Verified 05/02/21 20:24 lisinopril [Lisinopril] Allergy Mild CHANGES IN Verified 05/02/21 20:24 BLOOD PRESSURE ranitidine [RANITIDINE] Allergy Mild HEADACHE Verified 05/02/21 20:24 amlodipine [AMLODIPINE] Allergy Unknown UNKNOWN Verified 05/02/21 20:24 amoxicillin Allergy Unknown itching, Verified 05/02/21 20:24 severe with rash diclofenac Allergy Unknown Unknown Verified 05/02/21 20:24 escitalopram Allergy Unknown abdominal Verified 05/02/21 20:24 discomfort, drowsiness esomeprazole [Nexium] Allergy Unknown Unknown Verified 05/02/21 20:24 isosorbide [ISOSORBIDE] Allergy Unknown UNKNOWN Verified 05/02/21 20:24 lidocaine [Lidoderm] Allergy Unknown weakness Verified 05/02/21 20:24 mirtazapine Allergy Unknown Unknown Verified 05/02/21 20:24 nystatin Allergy Unknown rash Verified 05/02/21 20:24 sertraline [SERTRALINE] Allergy Unknown UNKNOWN Verified 05/02/21 20:24 dexlansoprazole AdvReac Severe AGITATION Verified 05/02/21 20:24 [From DEXILANT] hydrocortisone AdvReac Mild RAISES Verified 05/02/21 20:24 [From Cortizone-10] BLOOD SUGAR topiramate [From TOPAMAX] AdvReac Unknown AGITATION Verified 05/02/21 20:24 From PLAVIX Allergy Unknown PT UNSURE Uncoded 04/28/21 14:24 OF REACTION Medical tape Allergy Unknown Rash Uncoded 04/28/21 14:24 Review of Systems Review of Systems: Yes all other systems are reviewed and are negative [facility] Past Medical History Medical History Anxiety Benign essential hypertension Cardiomyopathy Conjunctival hemorrhage of right eye Depression 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 Essential hypertension GERD (gastroesophageal reflux disease) Hyperkalemia Left bundle branch block Nonischemic cardiomyopathy Obesity (BMI 30-39.9) Pure hypercholesterolemia Renal artery stenosis Stasis dermatitis of both legs Stasis edema of both lower extremities Urinary incontinence Surgical History History of cataract surgery History of cholecystectomy History of lumpectomy of left breast Hx of colonoscopy Hx of myomectomy Family History Family History Father CVD (cardiovascular disease) Myocardial infarction Mother Myocardial infarction CVD (cardiovascular disease) Brother Myocardial infarction Family/Other FH: prostate cancer Social History Social History Household Members: None Housing: Apartment Do you presently have visiting nurse or other home services: No Alcohol intake: never Patient Tobacco Use Status: Former Tobacco user Advance Directives: No Advance Directives Information Provided: No service: No Current occupational status: disabled Physical Exam Vital Signs: Vital Signs: Last Vital Signs Temp 98.2 F 05/02/21 20:24 Pulse 84 05/02/21 20:24 Resp 17 05/02/21 20:24 BP 180/77 H 05/02/21 20:24 Pulse Ox 98 05/02/21 20:24 Body Mass Index 31.6 Appearance: Alert. Oriented X3. No acute distress. Eyes: PERRLA, No Nystagmus ENT: Pharynx normal. Oral Mucosa moist Neck: Normal inspection. Neck supple. CVS: Normal heart rate and rhythm. Pulses normal. Respiratory: No respiratory distress. Equal air entry bilateral, no wheezing/rales/rhonchi Abdomen: Soft and nontender. Bowel sounds are present, no mass palpable, no CVA tenderness Skin: Skin warm and dry. Normal skin color. Normal skin turgor. Extremities: 3+ pedal edema. No calf tenderness Neuro: Oriented X 3. No motor deficit. No sensory deficit.No cerebellar signs , cranial nerves II-XII intact MDM - Chest Pain MDM Narrative Medical decision making narrative: Patient will increase stress at home after hearing nephews news increased anxiety atypical chest pain with stable high sensitive troponin was CKD EKG without any ischemic changes discharge patient home Lab Data Attestation: I reviewed the patient's lab results. Result diagrams: 05/02/21 22:40 05/02/21 22:40 Labs: Lab Results 05/02/21 05/02/21 05/02/21 Range/Units 22:40 22:40 22:40 WBC 5.8 (4.8-10.8) X10*3/uL RBC 3.85 L (4.20-5.50) X10*6/uL Hgb 11.4 L (12.0-16.0) g/dl Hct 35.5 L (37-47) % MCV 92.2 (80-98) fL MCH 29.6 (27.0-33.0) pg MCHC 32.1 (31.0-35.0) g/dl RDW 14.7 (11.0-16.0) % Plt Count 262 (160-400) X10*3/uL MPV 10.8 (9.4-12.3) fL Immature Gran % (Auto) 0.2 (0.0-0.4) % Neut % (Auto) 69.3 (45-73) % Lymph % (Auto) 18.2 L (20-40) % Osborne % (Auto) 11.1 H (2-11) % Eos % (Auto) 0.7 (0-4) % Baso % (Auto) 0.5 (0-2) % Lymph # (Auto) 1.1 L (1.2-4.9) X10*3/uL Osborne # (Auto) 0.6 (0.1-1.2) X10*3/uL Eos # (Auto) 0.0 (0.0-0.4) X10*3/uL Baso # (Auto) 0.0 (0.0-0.2) X10*3/uL Abs Immat Gran (auto) 0.01 (0.00-0.03) X10*3/uL Absolute Neuts (auto) 4.0 (2.0-8.3) X10*3/uL Absolute Nucleated RBC 0.000 (0.0-0.012) X10*3/uL Nucleated RBC % (auto) 0.0 (0.0-0.2) /100WBC Sodium 139 (135-145) mmol/L Potassium 4.1 (3.3-5.1) mmol/L Chloride 102 (96-108) mmol/L Carbon Dioxide 27 (22-29) mmol/L Anion Gap 14 (12-20) BUN 20 H (9-16) mg/dL Creatinine 1.64 H (0.5-1.4) mg/dL Estim Creat Clear Calc 25.7 Estimated GFR 30 Random Glucose 130 H (60-115) mg/dL Calcium 10.3 H (8.4-10.2) mg/dL Troponin I High Sens 40.3 H* (<3.5-17.0) ng/L ECG Data ECG #1: Interpretation: And rhythm heart rate 79 beats per minute her motor branch block which is old normal intervals no acute ST-T changes impression no acute ischemia Discharge Plan Discharge Prescriptions: No Action sitagliptin [Januvia] 100 mg tablet 100 mg PO DAILY Qty: 90 RF: 1 sennosides 8.6 mg tablet 17.2 mg PO DAILY PRN (Reason: constipation) 30 Days Qty: 60 RF: 1 carvedilol 6.25 mg tablet 6.25 mg PO BID Qty: 180 RF: 0 rosuvastatin 40 mg tablet 40 mg PO DAILY Qty: 90 RF: 1 losartan 100 mg tablet 100 mg PO DAILY Qty: 90 RF: 0 clotrimazole-betamethasone 1-0.05 % cream 1 appl topical BID PRN (Reason: dermatitis ) Qty: 30 RF: 3 ciclopirox 0.77 % cream 1 applic topical BID RF: 0 buspirone 7.5 mg tablet 7.5 mg PO DAILY RF: 0 alprazolam 0.5 mg tablet 0.5 mg PO BID PRN (Reason: Anxiety) RF: 0 acetaminophen [Tylenol Extra Strength] 500 mg tablet 500 mg PO .TWICE A DAY PRN (Reason: Pain) RF: 0 alum-mag hydroxide-simeth 200-200-20 mg/5 mL suspension 10 ml PO ONCE PRN (Reason: Stomach Upset) RF: 0 ondansetron 4 mg tablet,disintegrating 4 mg PO Q8H PRN (Reason: nausea and vomiting) Qty: 20 RF: 0 multivitamin Tablet 1 tab PO DAILY RF: 0 pantoprazole 40 mg tablet,delayed release (DR/EC) 40 mg PO DAILY Qty: 90 RF: 3 metformin 500 mg tablet 500 mg PO BID RF: 0 furosemide [Lasix] 20 mg tablet 20 mg PO DAILY Qty: 90 RF: 4
--- NOTE | 2021-05-02 23:40 | PC.NURSE ---
PT TO ROOM, CHG INTO GOWN AND MD AT BEDSIDE WITH PT. PT ALERT, RESPIRATIONS EASY, N/L. SKIN W/D. AWAITING FOR FURTHER ORDERS.
[2021-05-02] MEDS: LORazepam 0.5 MG TABLET PO (23:55)
--- NOTE | 2021-05-03 00:01 | PC.NURSE ---
pt up to restroom with a cane w/o difficultly. Pt medicated with Ativan PO as per emar for anxiety. will continue to monitor pt.
[2021-05-03 01:59] VITALS: BP 169/76; PULSE 73; RESP 16; TEMP 36.5; O2SAT 97
== END 2021-05-03 02:47 | disposition home or self-care (01) ==
PROVIDERS: Emergency Provider Internal Medicine
DX: F41.9 Anxiety disorder, unspecified (principal); I10 Essential (primary) hypertension; R07.89 Other chest pain; E11.9 Type 2 diabetes mellitus without complications; Z79.84 Long term (current) use of oral hypoglycemic drugs; Z79.899 Other long term (current) drug therapy
CPT/HCPCS: 36415; 71045; 80048; 84484; 85025; 93005; 99283; 99284

== ENCOUNTER 2021-05-26 15:41 | Outpatient (REF) | payer OTHER, SELFPAY ==
[2021-05-26 17:39] LABS: Anion Gap 13 (12-20); B Type Natriuretic Peptide 123 pg/mL (<100); Blood Urea Nitrogen 26 mg/dL (9-16); Calcium 9.9 mg/dL (8.4-10.2); Carbon Dioxide 28 mmol/L (22-29); Chloride 101 mmol/L (96-108); Estimated Glomerular Filt Rate 33; Glucose Random 106 mg/dL (60-115); Potassium 4.2 mmol/L (3.3-5.1); Sodium 138 mmol/L (135-145)
== END 2021-05-26 15:42 | disposition home or self-care (01) ==
LOC: HO.LNP 15:41
PROVIDERS: Visit Provider Internal Medicine
DX: I12.9 Hypertensive chronic kidney disease with stage 1 through stage 4 chronic kidney disease, or unspecified chronic kidney disease (principal); I42.8 Other cardiomyopathies; N18.9 Chronic kidney disease, unspecified
CPT/HCPCS: 80048; 83880

== ENCOUNTER → 2021-06-08 13:34 | Outpatient (REF) | payer OTHER, SELFPAY ==
--- NOTE | 2021-06-08 13:37 | CA_ITS ---
Transthoracic Echocardiogram Patient (Last, First, Middle): Alicia Noel, Gender: Female Date of : 1945 Age: 75 Procedure Date: 06/08/2021 Procedure Type: Transthoracic Echocardiogram Location: OP Height: 152.4 cm Weight: 73.94 kg BSA: 1.71 m2 Heart Rate: bpm BP: 140 / 73 mmHg Paper Machine Supervisor: Jennifer MD: Juve Alcazar MD Symptoms: I42.8 - Other cardiomyopathies Study Quality: Fair ECG Rhythm: Sinus Conclusions: - The left ventricular systolic function is mildly decreased. The calculated ejection fraction is 43% by biplane method. - There is mild calcification of the aortic valve. - There is mild mitral valve regurgitation. - There is mild tricuspid valve regurgitation. Findings Left Ventricle Normal left ventricular cavity size. There is normal left ventricular wall thickness. The left ventricular systolic function is mildly decreased. The calculated ejection fraction is 43% by biplane method. There is mild global hypokinesis. There is paradoxical septal motion consistent with a left bundle branch block. Right Ventricle Normal right ventricular cavity size and systolic function. TAPSE 2.13cm. Atria Both atria are normal in size. Aortic Valve There is a normal trileaflet aortic valve. There is mild calcification of the aortic valve. There is no aortic valve stenosis. There is trace (trivial) aortic valve regurgitation. Mitral Valve The mitral valve appears normal. There is mild mitral valve regurgitation. There is no mitral valve stenosis. Pulmonic Valve The pulmonic valve was not well visualized. There is trace pulmonic valve regurgitation. Tricuspid Valve Normal tricuspid valve structure. There is mild tricuspid valve regurgitation. The right ventricular systolic pressure is 35 mmHg. Top normal RVSP. Great Vessels The asc aorta is normal in size. Venous The inferior vena cava is normal in size and collapses greater than 50% with inspiration. Pericardium/Pleural There is no evidence of pericardial effusion. Prior Study Comparison Changes noted compared to prior study dated: 02/23/2021. Improved LVEF. Measurements 2D Linear Measurements RVIDd: 2.54 RVIDd Index: 1.49 IVSd: 1.00 0.6-0.9/0.6-1.0 cm LVIDd: 5.67 3.9-5.3/4.2-5.9 cm LVIDd Index: 3.32 2.4-3.2/2.2-3.1 cm/m2 LVIDs: 4.76 2.0-3.6 cm LVPWd: 1.24 0.7-1.1 cm Ao Root: 3.30 2.1-3.5 cm LA Diam: 3.90 2.7-3.8/3.0-4.0 cm LAIDs Index: 2.28 1.5-2.3 cm/m2 LV Mass: 324.74 67-162/88-224 g LV Mass Index: 189.91 43-95/49-115 g/m2 LVOT Diam: 2.10 3.0+(-)1.3 cm 2D Systolic Function EF 4C: 37.10 >55% EF 2C: 47.50 >55% EF BiP: 42.50 >55% Mitral Valve MV Pk E: 0.77 MV PK A: 0.93 MV Decel Time: 187.00 E/A: 0.80 E'Lateral: 10.70 E'Medial: 8.38 E/E' Med: 9.20 E/E' Lat: 7.20 MR Vol - PW Dopp: 42.75 MR VTI: 2.25 MR ERO: 19.00 MR Alias Marciano: 0.68 MR RAD: 0.50 Aortic Valve AoV Pk Marciano: 1.31 AoV Mn Marciano: 0.85 AoV VTI: 0.27 AoV Pk Grad: 7.00 Aov Mn Grad: 4.00 HANNAH Cont.VTI: 3.21 LVOT LVOT Pk Marciano: 1.10 LVOT Mn Marciano: 0.78 LVOT VTI: 0.25 LVOT Pk Grad: 5.00 LVOT Mn Grad: 3.00 LVOT Diam: 2.10 LVOT Area: 3.46 Diastolic Function MV Pk E: 0.77 MV Pk A: 0.93 E/A: 0.80 E'Medial: 8.38 E/E' Med: 9.20 E' Laterial: 10.70 E/E' Lat: 7.20 Right Ventricle TAPSE (mm): 24.00 TVS' Marciano: 12.40 Tricuspid Valve TR Pk Marciano: 2.85 TR Pk Grad: 32.00 RA Press: 3.00 RVSP: 35.00 Great Vessels Aorta Ao Root-2D: 3.30 2.0-3.7 cm Ao Asc: 2.90 2.1-3.4 cm Ao Arch: 3.20 Updated in Other Vendor System with Status of Final Juve Alcazar MD electronically signed on 06/09/2021 3:20:02 PM with status of Final
== END ==
LOC: HO.CARD 13:34
PROVIDERS: Visit Provider Internal Medicine
DX: I42.8 Other cardiomyopathies (principal)
CPT/HCPCS: 93306

== ENCOUNTER → 2021-06-22 09:53 | Outpatient (BNVA) | payer OTHER, SELFPAY | PROVIDERS: PCP Internal Medicine; Referring Provider Internal Medicine; Visit Provider Internal Medicine | DX: I42.8 Other cardiomyopathies (principal); I44.7 Left bundle-branch block, unspecified; I10 Essential (primary) hypertension | CPT/HCPCS: 99212 ==

== ENCOUNTER 2021-06-28 09:44 | Outpatient (REF) | payer OTHER, SELFPAY ==
[2021-06-28 11:41] LABS: Anion Gap 12 (12-20); Blood Urea Nitrogen 27 mg/dL (9-16); Calcium 10.1 mg/dL (8.4-10.2); Carbon Dioxide 28 mmol/L (22-29); Chloride 101 mmol/L (96-108); Estimated Glomerular Filt Rate 29; Potassium 4.4 mmol/L (3.3-5.1); Sodium 137 mmol/L (135-145)
== END 2021-06-28 09:45 | disposition home or self-care (01) ==
LOC: HO.LAB 09:44
PROVIDERS: PCP Internal Medicine; Visit Provider Internal Medicine Nephrology
DX: I70.1 Atherosclerosis of renal artery (principal); N17.9 Acute kidney failure, unspecified
CPT/HCPCS: 36415; 80051; 82310; 82565; 84520

== ENCOUNTER 2021-08-05 21:01 | Observation (INO) | payer OTHER, SELFPAY ==
--- NOTE | ~2021-08-05 | US_ITS ---
EXAMINATION: ULTRASOUND RENAL DOPPLER CLINICAL INFORMATION: Rule out renal artery stenosis. COMPARISON: Renal Doppler dated 05/20/2018. Abdomen and pelvis dated 11/27/2020 TECHNIQUE: Multiple 2D grayscale and duplex Doppler ultrasound images of the renal arteries were obtained. FINDINGS: The right kidney measures 9.9 x 5.0 x 4.9 cm. There is no hydronephrosis or nephrolithiasis. A lower pole cyst measures 0.6 cm. Color Doppler showed no abnormal vascular flow. A supernumerary renal arteries also seen supplying the upper pole with origin just superior to the main renal artery. Arterial velocities are as follows: Intrarenal: Resistive index, 0.81 Right main renal artery: [place]: 122 cm/sec, resistive index 0.83 Mid: 153 cm/sec, resistive index at 0.80 Proximal: 183 cm/sec (previously 152 cm/s), resistive index 0.83 Right minor renal artery: [place]: 104 cm/sec, resistive index 0.79 Mid: 79 cm/sec, resistive index at 0.74 Proximal: 81 cm/sec (previously 2 99 cm/s), resistive index 0.77 The right renal vein demonstrated normal venous waveforms. The left kidney measures 10.1 x 5.2 x 4.5 cm. There is no hydronephrosis or nephrolithiasis. Intrarenal: Resistive index 0.82 Left renal artery: [place]: 68 cm/sec, resistive index 0.80 Mid: 81.3 cm/sec, resistive index of 0.77 Proximal: 57 cm/sec, resistive index 0.77 The left renal vein demonstrated normal venous waveforms. Aortic velocities measure up to 80 cm/sec. Normal low resistance arterial wave forms are noted in both renal arteries. The visualized inferior vena cava is unremarkable. US/US renal doppler IMPRESSION: 1. Asymmetrically elevated velocities in the right renal artery, most pronounced proximally in the main renal artery branch measuring greater than 2 x aortic velocity. This represents mild interval increase from the previous study. A minor branch supplying the right upper pole shows no significant stenosis. 2. Interval decrease in velocities in the left renal artery demonstrating no hemodynamically significant stenosis.
--- NOTE | ~2021-08-05 | US_ITS ---
EXAMINATION: US RETROPERITONEAL LIMITED (RENAL ONLY) CLINICAL INFORMATION: History of HARRIET.. COMPARISON: None TECHNIQUE: Routine grayscale and retrograde Doppler imaging of kidneys were performed. FINDINGS: RIGHT KIDNEY: 9.9 x 5.0 x 4.9 cm (SAG x AP x TRV). The kidney is normal in size, contour, and echogenicity. Renal cortical thickness is normal. There are no echogenic calculi. There is anechoic cyst lower pole measuring 0.6 x 0.5 x 0.6 cm. On renal Doppler imaging the renal artery velocity proximal segment measures 1 83 cm/second, mid segment measures 1 53 cm/second and distal segment measures 1 22 cm/second. The renal aortic ratio is 2.3. Average resistive and next measures 0.79. There is no suggestion for stenosis. LEFT KIDNEY: 10.1 x 5.2 x 4.5 cm (SAG x AP x TRV). The kidney is normal in size, contour, and echogenicity. Renal cortical thickness is normal. No calculi or focal parenchymal lesions. No hydronephrosis. There is extrarenal kidney pelvis. On renal Doppler imaging proximal renal artery velocity measures 68.5 cm/second, mid segment measures 81.3 cm/sec and distal segment measures 67.5 cm/second. Renal aortic ratio measures 1.0. Average resistive index is 0.79 The mid aorta velocity measures 80.1 cm/second. Both renal veins are patent. US/US renal BI IMPRESSION: Small cyst lower pole right kidney. Extrarenal right kidney pelvis. There is no suggestion for renal artery stenosis in either kidneys..
[2021-08-05 21:09] VITALS: BP 178/81; BP 180/120; PULSE 93; RESP 20; TEMP 36.9; O2SAT 98; BMI 33.5
--- NOTE | 2021-08-05 21:14 | ECG_ITS ---
Test Reason : HEADACHE Blood Pressure : / mmHG Vent. Rate : 087 BPM Atrial Rate : 087 BPM P-R Int : 160 ms QRS Dur : 148 ms QT Int : 412 ms P-R-T Axes : 070 -14 098 degrees QTc Int : 495 ms Normal sinus rhythm Left bundle branch block Abnormal ECG No significant changes seen Referred By: Kelly Panda Electronically Signed By:VALENTINE SERRANO MD
[2021-08-05] MEDS: Acetaminophen 325 MG TABLET 975 MG PO (21:24)
[2021-08-05 21:54] VITALS: BP 161/77; PULSE 84; RESP 16; TEMP 36.8; O2SAT 98
--- NOTE | 2021-08-05 21:54 | ED_ITS ---
HPI - General Adult General Chief complaint: Headache Stated complaint: headache, htn Time Seen by Provider: 08/05/21 21:13 Source: patient and translator and interpreter Mode of arrival: EMS History of Present Illness HPI narrative: This is a 75-year-old female with history of cardiomyopathy, diabetes, hypertension who is brought in via EMS after she states she was doing her dishes at the kitchen sink and began to feel very flushed, generalized weakness with a headache that she points to 1 specific area on the top of her head and says that it was sharp in nature and denies any associated hearing/visual/speech dysfunction or changes and denies that she had unilateral weakness/numbness/tingling. She denies falling but states that she also had fee lings of nausea, palpitations, chest pressure with radiation into the right chest and then experience states sharp pain in the middle of the palm of her left hand but denies any vomiting, diarrhea, or urinary pain/burning/frequency. She states that she has had these symptoms previously but not as strong. She states that she checked her blood pressure and noted that it was over 200 for the top number and over 100 for the bottom number. Patient states that she still feels mildly nauseous with right-sided chest discomfort and a headache that goes from the top left of her head and down over the back. Related Data Home Medications Medication Instructions Recorded Confirmed acetaminophen 500 mg tablet 500 mg PO .TWICE A DAY PRN tab 08/16/20 06/22/21 (Tylenol Extra Strength) alprazolam 0.5 mg tablet 0.5 mg PO BID PRN 08/16/20 08/06/21 aluminum-mag hydroxide-simethicone 10 ml PO ONCE PRN ml 08/16/20 06/22/21 200 mg-200 mg-20 mg/5 mL oral susp buspirone 7.5 mg tablet 7.5 mg PO DAILY 08/16/20 08/06/21 ciclopirox 0.77 % topical cream 1 applic TOPICAL BID 02/22/21 06/22/21 multivitamin 1 tab PO DAILY 03/09/21 08/06/21 metformin 500 mg tablet 500 mg PO BID tab 04/28/21 08/06/21 losartan 100 mg tablet 50 mg PO DAILY tab 06/22/21 08/06/21 Previous Rx's Medication Instructions Recorded sennosides 8.6 mg tablet 17.2 mg PO DAILY PRN 30 Days #60 01/21/21 tab rosuvastatin 40 mg tablet 40 mg PO DAILY #90 tab 02/15/21 ondansetron 4 mg disintegrating 4 mg PO Q8H PRN #20 tab 02/28/21 tablet pantoprazole 40 mg tablet,delayed 40 mg PO DAILY #90 tab 04/27/21 release furosemide 20 mg tablet (Lasix) 20 mg PO DAILY #90 tab 04/28/21 sitagliptin 100 mg tablet (Januvia) 100 mg PO DAILY #90 tab 05/26/21 blood sugar diagnostic ([employer] Odor Resistant Beddinguch 1 strip MISCELLANEOUS QID #100 06/21/21 Ultra Test) strip carvedilol 6.25 mg tablet 6.25 mg PO BID #180 tab 06/25/21 lancets 33 gauge ([employer] Limited[employer] Delica 33 gauge TOPICAL QID #200 ea 07/06/21 Plus Lancet) clotrimazole-betamethasone 1 1 appl TOPICAL BID PRN #30 g 08/01/21 %-0.05 % topical cream Allergies Allergy/AdvReac Type Severity Reaction Status Date / Time aspirin [Aspirin] Allergy Severe MOUTH Verified 06/22/21 10:04 SWELLING hydrochlorothiazide Allergy Intermediate DROP IN Verified 06/22/21 10:04 [Hydrochlorothiazide] BLOOD PRESSURE Penicillins [PENICILLINS] Allergy Intermediate ITCHING Verified 06/22/21 10:04 caffeine [Caffeine] Allergy Mild NERVOUSNESS Verified 06/22/21 10:04 lisinopril [Lisinopril] Allergy Mild CHANGES IN Verified 06/22/21 10:04 BLOOD PRESSURE ranitidine [RANITIDINE] Allergy Mild HEADACHE Verified 06/22/21 10:04 amlodipine [AMLODIPINE] Allergy Unknown UNKNOWN Verified 06/22/21 10:04 amoxicillin Allergy Unknown itching, Verified 06/22/21 10:04 severe with rash diclofenac Allergy Unknown Unknown Verified 06/22/21 10:04 escitalopram Allergy Unknown abdominal Verified 06/22/21 10:04 discomfort, drowsiness esomeprazole [Nexium] Allergy Unknown Unknown Verified 06/22/21 10:04 isosorbide [ISOSORBIDE] Allergy Unknown UNKNOWN Verified 06/22/21 10:04 lidocaine [Lidoderm] Allergy Unknown weakness Verified 06/22/21 10:04 mirtazapine Allergy Unknown Unknown Verified 06/22/21 10:04 nystatin Allergy Unknown rash Verified 06/22/21 10:04 sertraline [SERTRALINE] Allergy Unknown UNKNOWN Verified 06/22/21 10:04 dexlansoprazole AdvReac Severe AGITATION Verified 06/22/21 10:04 [From DEXILANT] hydrocortisone AdvReac Mild RAISES Verified 06/22/21 10:04 [From Cortizone-10] BLOOD SUGAR topiramate [From TOPAMAX] AdvReac Unknown AGITATION Verified 06/22/21 10:04 From PLAVIX Allergy Unknown PT UNSURE Uncoded 06/22/21 10:04 OF REACTION Medical tape Allergy Unknown Rash Uncoded 06/22/21 10:04 Review of Systems Review of Systems: Pertinent positives and negatives as stated in HPI 10 point review of systems is otherwise negative. [facility] Past Medical History Source: nursing notes reviewed Medical History Anxiety Benign essential hypertension Cardiomyopathy Conjunctival hemorrhage of right eye COVID-19 Depression 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 GERD (gastroesophageal reflux disease) Hyperkalemia Left bundle branch block Nonischemic cardiomyopathy Obesity (BMI 30-39.9) Pneumonia due to COVID-19 virus Pure hypercholesterolemia Renal artery stenosis Stasis edema of both lower extremities Urinary incontinence Vertigo Surgical History History of cataract surgery History of cholecystectomy History of lumpectomy of left breast Hx of colonoscopy Hx of myomectomy Family History Family History Father CVD (cardiovascular disease) Myocardial infarction Mother Myocardial infarction CVD (cardiovascular disease) Brother Myocardial infarction Family/Other FH: prostate cancer Social History Social History Household Members: None Housing: Apartment Do you presently have visiting nurse or other home services: No Alcohol intake: never Patient Tobacco Use Status: Former Tobacco user Advance Directives: No Advance Directives Information Provided: Yes service: No Current occupational status: disabled Physical Exam Vital Signs: Vital Signs: Last Vital Signs Temp 98.2 F 08/06/21 00:00 Pulse 81 08/06/21 02:37 Resp 16 08/06/21 02:37 BP 174/82 H 08/06/21 02:37 Pulse Ox 96 08/06/21 02:37 Body Mass Index 33.5 VITAL SIGNS: Reviewed. GENERAL: Well developed, well nourished, in no acute distress. HEAD: Normocephalic/atraumatic, EYES: PERRLA, EOMI intact without pain, no nystagmus OROPHARYNX: no oral lesions noted, posterior pharynx clear NECK: Supple, no adenopathy LUNGS: Normal breath sounds. No adventitious sounds or accessory muscle use. SpO2<98> CARDIOVASCULAR: Regular rate and rhythm without noted murmurs, no JVD or lower extremity edema. ABDOMEN: Soft, non-tender, non-distended with bowel sounds. MUSCULOSKELETAL: No tenderness, deformities, or effusions noted on gross inspection. EXTREMITIES: No cyanosis, clubbing or edema. SKIN: Inspection of the skin reveals no rashes NEUROLOGIC: Alert and oriented x 4. Strength and sensation to light touch were grossly intact x 4, no facial asymmetry, no pronator drift, cranial nerves 2-12 are grossly intact, cerebellar testing is within normal limits Course Course Course Narrative: 75-year-old female with history and clinical presentation consistent with anxiety and possible exacerbation of migraine history. Will rule out cardiopulmonary etiologies, there are no focal findings and cerebellar testing is within normal limits. Patient denies current feelings of dizziness. Review of all investigations and serial troponins are suggestive of ACS, although there are no EKG changes. On re-evaluation, patient states that she has had improvement of her headache and right-sided chest discomfort. In addition, I was noted that patient has sustained superficial skin tears after EKG leads were removed from patient's skin. This case was discussed with the inpatient hospitalist who accepts admission. Medical Decision Making Lab Data Result diagrams: 08/05/21 22:06 08/05/21 22:31 Labs: Lab Results 08/05/21 08/05/21 08/05/21 Range/Units 22:06 22:06 22:06 WBC 6.3 (4.8-10.8) X10*3/uL RBC 3.70 L (4.20-5.50) X10*6/uL Hgb 11.1 L (12.0-16.0) g/dl Hct 34.0 L (37-47) % MCV 91.9 (80-98) fL MCH 30.0 (27.0-33.0) pg MCHC 32.6 (31.0-35.0) g/dl RDW 13.3 (11.0-16.0) % Plt Count 277 (160-400) X10*3/uL MPV 10.6 (9.4-12.3) fL Immature Gran % (Auto) 0.5 H (0.0-0.4) % Neut % (Auto) 71.8 (45-73) % Lymph % (Auto) 17.8 L (20-40) % [place] % (Auto) 8.3 (2-11) % Eos % (Auto) 1.1 (0-4) % Baso % (Auto) 0.5 (0-2) % Lymph # (Auto) 1.1 L (1.2-4.9) X10*3/uL [place] # (Auto) 0.5 (0.1-1.2) X10*3/uL Eos # (Auto) 0.1 (0.0-0.4) X10*3/uL Baso # (Auto) 0.0 (0.0-0.2) X10*3/uL Abs Immat Gran (auto) 0.03 (0.00-0.03) X10*3/uL Absolute Neuts (auto) 4.5 (2.0-8.3) X10*3/uL Absolute Nucleated RBC 0.000 (0.0-0.012) X10*3/uL Nucleated RBC % (auto) 0.0 (0.0-0.2) /100WBC PT 11.8 (9.9-13.0) SEC INR 1.0 (0.9-1.1) Sodium (135-145) mmol/L Potassium (3.3-5.1) mmol/L Chloride (96-108) mmol/L Carbon Dioxide (22-29) mmol/L Anion Gap (12-20) BUN (9-16) mg/dL Creatinine (0.5-1.4) mg/dL Estim Creat Clear Calc Estimated GFR POC Glucose (60-115) mg/dL Random Glucose (60-115) mg/dL Calcium (8.4-10.2) mg/dL Total Bilirubin (0.0-1.0) mg/dL AST (5-31) U/L ALT (0-31) U/L Alkaline Phosphatase (39-117) U/L Troponin I High Sens 20.2 H* (<3.5-17.0) ng/L B-Natriuretic Peptide 71 (<100) pg/mL Total Protein (6.5-8.0) g/dL Albumin (3.5-5.0) g/dL Urine Color Urine Appearance Urine pH (5.0-8.0) Ur Specific [place] (1.005-1.025) Urine Protein (NEG-TRACE) MG/DL Urine Glucose (UA) (NEG) MG/DL Urine Ketones (NEG) MG/DL Urine Blood (NEG) Urine Nitrite (NEG) Ur Leukocyte Esterase (NEG) Urine RBC (0) /HPF Urine WBC (0-4) /HPF Ur Squamous Epith Cells /LPF Urine Bacteria /LPF 08/05/21 08/05/21 08/06/21 Range/Units 22:31 22:31 00:55 WBC (4.8-10.8) X10*3/uL RBC (4.20-5.50) X10*6/uL Hgb (12.0-16.0) g/dl Hct (37-47) % MCV (80-98) fL MCH (27.0-33.0) pg MCHC (31.0-35.0) g/dl RDW (11.0-16.0) % Plt Count (160-400) X10*3/uL MPV (9.4-12.3) fL Immature Gran % (Auto) (0.0-0.4) % Neut % (Auto) (45-73) % Lymph % (Auto) (20-40) % [place] % (Auto) (2-11) % Eos % (Auto) (0-4) % Baso % (Auto) (0-2) % Lymph # (Auto) (1.2-4.9) X10*3/uL [place] # (Auto) (0.1-1.2) X10*3/uL Eos # (Auto) (0.0-0.4) X10*3/uL Baso # (Auto) (0.0-0.2) X10*3/uL Abs Immat Gran (auto) (0.00-0.03) X10*3/uL Absolute Neuts (auto) (2.0-8.3) X10*3/uL Absolute Nucleated RBC (0.0-0.012) X10*3/uL Nucleated RBC % (auto) (0.0-0.2) /100WBC PT (9.9-13.0) SEC INR (0.9-1.1) Sodium 137 (135-145) mmol/L Potassium 5.0 (3.3-5.1) mmol/L Chloride 104 (96-108) mmol/L Carbon Dioxide 23 (22-29) mmol/L Anion Gap 15 (12-20) BUN 24 H (9-16) mg/dL Creatinine 1.70 H (0.5-1.4) mg/dL Estim Creat Clear Calc 25.6 Estimated GFR 29 POC Glucose (60-115) mg/dL Random Glucose 121 H (60-115) mg/dL Calcium 9.8 (8.4-10.2) mg/dL Total Bilirubin 0.9 (0.0-1.0) mg/dL AST 30 (5-31) U/L ALT 27 (0-31) U/L Alkaline Phosphatase 96 D (39-117) U/L Troponin I High Sens 83.2 H* D (<3.5-17.0) ng/L B-Natriuretic Peptide (<100) pg/mL Total Protein 7.6 (6.5-8.0) g/dL Albumin 4.2 (3.5-5.0) g/dL Urine Color STRAW Urine Appearance CLEAR Urine pH 6.5 (5.0-8.0) Ur Specific [place] <= 1.005 (1.005-1.025) Urine Protein TRACE (NEG-TRACE) MG/DL Urine Glucose (UA) NEG (NEG) MG/DL Urine Ketones NEG (NEG) MG/DL Urine Blood 1+ H (NEG) Urine Nitrite NEG (NEG) Ur Leukocyte Esterase TRACE H (NEG) Urine RBC 0-2 (0) /HPF Urine WBC 0-2 (0-4) /HPF Ur Squamous Epith Cells 1+ /LPF Urine Bacteria 1+ /LPF 08/06/ Range/Units 00:58 WBC (4.8-10.8) X10*3/uL RBC (4.20-5.50) X10*6/uL Hgb (12.0-16.0) g/dl Hct (37-47) % MCV (80-98) fL MCH (27.0-33.0) pg MCHC (31.0-35.0) g/dl RDW (11.0-16.0) % Plt Count (160-400) X10*3/uL MPV (9.4-12.3) fL Immature Gran % (Auto) (0.0-0.4) % Neut % (Auto) (45-73) % Lymph % (Auto) (20-40) % [place] % (Auto) (2-11) % Eos % (Auto) (0-4) % Baso % (Auto) (0-2) % Lymph # (Auto) (1.2-4.9) X10*3/uL [place] # (Auto) (0.1-1.2) X10*3/uL Eos # (Auto) (0.0-0.4) X10*3/uL Baso # (Auto) (0.0-0.2) X10*3/uL Abs Immat Gran (auto) (0.00-0.03) X10*3/uL Absolute Neuts (auto) (2.0-8.3) X10*3/uL Absolute Nucleated RBC (0.0-0.012) X10*3/uL Nucleated RBC % (auto) (0.0-0.2) /100WBC PT (9.9-13.0) SEC INR (0.9-1.1) Sodium (135-145) mmol/L Potassium (3.3-5.1) mmol/L Chloride (96-108) mmol/L Carbon Dioxide (22-29) mmol/L Anion Gap (12-20) BUN (9-16) mg/dL Creatinine (0.5-1.4) mg/dL Estim Creat Clear Calc Estimated GFR POC Glucose 99 (60-115) mg/dL Random Glucose (60-115) mg/dL Calcium (8.4-10.2) mg/dL Total Bilirubin (0.0-1.0) mg/dL AST (5-31) U/L ALT (0-31) U/L Alkaline Phosphatase (39-117) U/L Troponin I High Sens (<3.5-17.0) ng/L B-Natriuretic Peptide (<100) pg/mL Total Protein (6.5-8.0) g/dL Albumin (3.5-5.0) g/dL Urine Color Urine Appearance Urine pH (5.0-8.0) Ur Specific [place] (1.005-1.025) Urine Protein (NEG-TRACE) MG/DL Urine Glucose (UA) (NEG) MG/DL Urine Ketones (NEG) MG/DL Urine Blood (NEG) Urine Nitrite (NEG) Ur Leukocyte Esterase (NEG) Urine RBC (0) /HPF Urine WBC (0-4) /HPF Ur Squamous Epith Cells /LPF Urine Bacteria /LPF ECG Data Attestation: I personally reviewed and interpreted this ECG as follows: Prior ECG tracings: available for review (05/02/2021 no acute changes on comparison) Interpretation: Normal sinus rhythm, LBBB, no STEMI, HR-87, ME/QTC are within normal limits. Discharge Plan Discharge Clinical Impression: ACS (acute coronary syndrome), Diabetes Patient Disposition: Admitted As Inpatient
--- NOTE | 2021-08-05 21:58 | PC.NURSE ---
PATIENT WAS CHANGE INTO HOSPITAL ATTIRE BY THIS PCT .
[2021-08-05 22:11] LABS: MANUAL DIFF FLAG NO
[2021-08-05 22:12] LABS: Basophils Percent Auto 0.5 % (0-2); Eosinophils Absolute Auto 0.1 X10*3/uL (0.0-0.4); Eosinophils Percent Auto 1.1 % (0-4); Hemoglobin 11.1 g/dl (12.0-16.0); Imm Gran Abs Auto 0.03 X10*3/uL (0.00-0.03); Imm Gran Pct Auto 0.5 % (0.0-0.4); Lymphocytes Absolute Auto 1.1 X10*3/uL (1.2-4.9); Lymphocytes Percent Auto 17.8 % (20-40); Mean Corpuscular HGB Conc 32.6 g/dl (31.0-35.0); Mean Corpuscular Volume 91.9 fL (80-98); Mean Platelet Volume 10.6 fL (9.4-12.3); Monocytes Absolute Auto 0.5 X10*3/uL (0.1-1.2); Monocytes Percent Auto 8.3 % (2-11); Neutrophils Absolute Auto 4.5 X10*3/uL (2.0-8.3); Neutrophils Percent Auto 71.8 % (45-73); Platelet Count 277 X10*3/uL (160-400); Red Cell Distribution Width 13.3 % (11.0-16.0); White Blood Count 6.3 X10*3/uL (4.8-10.8)
[2021-08-05 22:19] LABS: Prothrombin Time 11.8 SEC (9.9-13.0)
[2021-08-05 22:35] LABS: Troponin-I High Sensitivity 20.2 ng/L (<3.5-17.0)
[2021-08-05 22:36] LABS: Appearance Urine CLEAR; Color Urine STRAW; Glucose Urine UA NEG (NEG); Leukocyte Esterase Urine TRACE (NEG); Nitrite Urine NEG (NEG); PH 6.5 (5.0-8.0); Specific Gravity - Urine <= 1.005 (1.005-1.025); UACC Culture Trigger YES; Urine Blood 1+ (NEG); Urine Ketones NEG (NEG); Urine Protein TRACE MG/DL (NEG-TRACE)
[2021-08-05 22:49] LABS: Bacteria Urine 1+ /LPF; RBC Urine 0-2 /HPF (0); Squamous Epithelial Cell Urine 1+ /LPF; WBC Urine 0-2 /HPF (0-4)
[2021-08-05 22:53] LABS: Alanine Aminotransferase 27 U/L (0-31); Albumin Level 4.2 g/dL (3.5-5.0); Alkaline Phosphatase 96 U/L (39-117); Anion Gap 15 (12-20); Aspartate Amino Transferase 30 U/L (5-31); Bilirubin Total 0.9 mg/dL (0.0-1.0); Blood Urea Nitrogen 24 mg/dL (9-16); Calcium 9.8 mg/dL (8.4-10.2); Carbon Dioxide 23 mmol/L (22-29); Chloride 104 mmol/L (96-108); Creatinine Clr Calc Pharmacy 25.6; Estimated Glomerular Filt Rate 29; Glucose Random 121 mg/dL (60-115); Sodium 137 mmol/L (135-145); Total Protein 7.6 g/dL (6.5-8.0)
[2021-08-05 23:56] LABS: B Type Natriuretic Peptide 71 pg/mL (<100)
[2021-08-06] VITALS (14 sets, daily range): BP systolic 104–174; BP diastolic 62–82; PULSE 61–84; RESP 13–18; TEMP 36.6–37.1; O2SAT 95–98; BMI 32.5
--- NOTE | 2021-08-06 01:04 | PC.NURSE ---
PATIENT TAUGHT HER SUGAR WAS LOW ,POC WAS TAKEN IT WAS 99 ,MD VIVAS IS AWARE ,PATIENT WAS GIVEN A DIET SMITA CAMMY AND SALTENES CRACKERS .
[2021-08-06 01:05] LABS: Glucose, Whole Blood 99 mg/dL (60-115)
[2021-08-06 01:38] LABS: Troponin-I High Sensitivity 83.2 ng/L (<3.5-17.0)
--- NOTE | 2021-08-06 02:24 | P.HPHOSP_ITS ---
History of Present Illness Date of Service: 08/06/21 Chief Complaint: Chest pain 69-year-old female with a past medical history of hypertension, hyperlipidemia, diabetes, CHF with EF of 43%; anxiety, depression presented to the hospital with a chief complaint of headaches. Patient reported that initially prior with headache subsequently also noted hand pain, pressure sensation associated nausea and right-sided chest pain. Sharp in nature. Nonradiating. S decided to come to the ER for further evaluation. Patient denies any fever chills cough. Patient denies any recent travel or sick contacts. Review of all other systems is negative except mentioned above ER course: Per ER team patient's EKG showed LBBB, unchanged from prior; troponins indeterminate; chest pain improving. Admitted to rule out ACS. [facility] Medical History Anxiety Benign essential hypertension Cardiomyopathy Conjunctival hemorrhage of right eye COVID-19 Depression 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 GERD (gastroesophageal reflux disease) Hyperkalemia Left bundle branch block Nonischemic cardiomyopathy Obesity (BMI 30-39.9) Pneumonia due to COVID-19 virus Pure hypercholesterolemia Renal artery stenosis Stasis edema of both lower extremities Urinary incontinence Vertigo Family History Father CVD (cardiovascular disease) Myocardial infarction Mother Myocardial infarction CVD (cardiovascular disease) Brother Myocardial infarction Family/Other FH: prostate cancer Pertinent family history: as above Surgical History History of cataract surgery History of cholecystectomy History of lumpectomy of left breast Hx of colonoscopy Hx of myomectomy Social History Household Members: None Housing: Apartment Do you presently have visiting nurse or other home services: No Alcohol intake: never Patient Tobacco Use Status: Former Tobacco user Advance Directives: No Advance Directives Information Provided: Yes service: No Current occupational status: disabled Meds Allergies Allergy/AdvReac Type Severity Reaction Status Date / Time aspirin [Aspirin] Allergy Severe MOUTH Verified 06/22/21 10:04 SWELLING hydrochlorothiazide Allergy Intermediate DROP IN Verified 06/22/21 10:04 [Hydrochlorothiazide] BLOOD PRESSURE Penicillins [PENICILLINS] Allergy Intermediate ITCHING Verified 06/22/21 10:04 caffeine [Caffeine] Allergy Mild NERVOUSNESS Verified 06/22/21 10:04 lisinopril [Lisinopril] Allergy Mild CHANGES IN Verified 06/22/21 10:04 BLOOD PRESSURE ranitidine [RANITIDINE] Allergy Mild HEADACHE Verified 06/22/21 10:04 amlodipine [AMLODIPINE] Allergy Unknown UNKNOWN Verified 06/22/21 10:04 amoxicillin Allergy Unknown itching, Verified 06/22/21 10:04 severe with rash diclofenac Allergy Unknown Unknown Verified 06/22/21 10:04 escitalopram Allergy Unknown abdominal Verified 06/22/21 10:04 discomfort, drowsiness esomeprazole [Nexium] Allergy Unknown Unknown Verified 06/22/21 10:04 isosorbide [ISOSORBIDE] Allergy Unknown UNKNOWN Verified 06/22/21 10:04 lidocaine [Lidoderm] Allergy Unknown weakness Verified 06/22/21 10:04 mirtazapine Allergy Unknown Unknown Verified 06/22/21 10:04 nystatin Allergy Unknown rash Verified 06/22/21 10:04 sertraline [SERTRALINE] Allergy Unknown UNKNOWN Verified 06/22/21 10:04 dexlansoprazole AdvReac Severe AGITATION Verified 06/22/21 10:04 [From DEXILANT] hydrocortisone AdvReac Mild RAISES Verified 06/22/21 10:04 [From Cortizone-10] BLOOD SUGAR topiramate [From TOPAMAX] AdvReac Unknown AGITATION Verified 06/22/21 10:04 From PLAVIX Allergy Unknown PT UNSURE Uncoded 06/22/21 10:04 OF REACTION Medical tape Allergy Unknown Rash Uncoded 06/22/21 10:04 Active Medications: Current Medications Acetaminophen (Acetaminophen 325 Mg Tablet) 650 mg PO Q6H PRN PRN Reason: Pain, Mild (Pain Scale 1-3) Dextrose (Dextrose 50 % 25 Gm/50 Ml Vial) 25 gm IVPUSH Q15M PRN; Protocol PRN Reason: per Hypoglycemia Standing Ord. Enoxaparin Sodium (Enoxaparin Sodium 40 Mg/0.4 Ml Syringe) 40 mg SUBCUT Q24H [facility] Glucose (Glucose Gel 15 Gm Gel..Gram.) 15 gm PO Q15M PRN; Protocol PRN Reason: per Hypoglycemia Standing Ord. Insulin Human Lispro (Insulin Lispro 100 Unit/Ml 3 Ml Vial) 0 unit SUBCUT QIDACHS ANAT; Protocol Melatonin (Melatonin 3 Mg Tablet) 6 mg PO BEDTIME PRN PRN Reason: Insomnia Morphine Sulfate (Morphine Sulfate 2 Mg/Ml Cartridge) 1 mg IVPUSH Q4H PRN; Protocol PRN Reason: Chest Pain Senna (Sennosides 8.6 Mg Tablet) 17.2 mg PO BEDTIME PRN PRN Reason: Constipation Sodium Chloride (0.9 % Sodium Chloride Flush 3 Ml Syringe) 3 ml IVFLUSH QSHIFT [facility] Home Medications Medication Instructions Recorded Confirmed Last Taken Type acetaminophen 500 mg tablet 500 mg PO .TWICE A DAY PRN tab 08/16/20 08/06/21 Unknown History (Tylenol Extra Strength) alprazolam 0.5 mg tablet 0.5 mg PO BID PRN 08/16/20 08/06/21 02/22/21 History aluminum-mag hydroxide-simethicone 10 ml PO ONCE PRN ml 08/16/20 08/06/21 02/21/21 History 200 mg-200 mg-20 mg/5 mL oral susp buspirone 7.5 mg tablet 7.5 mg PO DAILY 08/16/20 08/06/21 02/21/21 History ciclopirox 0.77 % topical cream 1 applic TOPICAL BID 02/22/21 08/06/21 02/21/21 History multivitamin 1 tab PO DAILY 03/09/21 08/06/21 Unknown History metformin 500 mg tablet 500 mg PO BID tab 04/28/21 08/06/21 Unknown History losartan 100 mg tablet 50 mg PO DAILY tab 06/22/21 08/06/21 Unknown History cholecalciferol (vitamin D3) 25 25 mcg PO DAILY 08/06/21 08/06/21 Unknown History mcg (1,000 unit) tablet (Vitamin D3) nystatin 100,000 unit/gram topical 1 appl TOPICAL BID 08/06/21 08/06/21 Unknown History powder propylene glycol 0.6 % eye drops 1 drp OPHTHALMIC (EYE) BID PRN 08/06/21 08/06/21 Unknown History (Systane Balance) Physical Exam Vital Signs and Narrative: Vital Signs: Last Vital Signs Temp 98.2 F 08/06/21 00:00 Pulse 80 08/06/21 00:00 Resp 16 08/06/21 00:00 BP 157/70 H 08/06/21 00:00 Pulse Ox 95 08/06/21 00:00 Body Mass Index 33.5 Gen: Appears be in no acute distress HEENT: NCAT, Moist mucosa. Pulmonary: Vesicular breath sounds, fair air entry CVS: Normal S1-S2 Abdomen: BS+, Soft, Nontender Extremities: Warm well perfused Neuro: Alert and awake. Results Labs CBC and Chem 7: 08/06/21 04:10 08/06/21 04:10 Labs: Laboratory Results - last 24 hr 08/05/21 08/05/21 08/05/21 22:06 22:06 22:06 MCV 91.9 MCH 30.0 MCHC 32.6 RDW 13.3 Plt Count 277 MPV 10.6 Immature Gran % (Auto) 0.5 H Neut % (Auto) 71.8 Lymph % (Auto) 17.8 L [place] % (Auto) 8.3 Eos % (Auto) 1.1 Baso % (Auto) 0.5 Lymph # (Auto) 1.1 L [place] # (Auto) 0.5 Eos # (Auto) 0.1 Baso # (Auto) 0.0 Abs Immat Gran (auto) 0.03 Absolute Neuts (auto) 4.5 Absolute Nucleated RBC 0.000 Nucleated RBC % (auto) 0.0 PT 11.8 INR 1.0 Anion Gap Estim Creat Clear Calc Estimated GFR POC Glucose Random Glucose Calcium Total Bilirubin AST ALT Alkaline Phosphatase Troponin I High Sens 20.2 H* B-Natriuretic Peptide 71 Total Protein Albumin Urine Color Urine Appearance Urine pH Ur Specific [place] Urine Protein Urine Glucose (UA) Urine Ketones Urine Blood Urine Nitrite Ur Leukocyte Esterase Urine RBC Urine WBC Ur Squamous Epith Cells Urine Bacteria 08/05/21 08/05/21 08/06/21 22:31 22:31 00:55 MCV MCH MCHC RDW Plt Count MPV Immature Gran % (Auto) Neut % (Auto) Lymph % (Auto) [place] % (Auto) Eos % (Auto) Baso % (Auto) Lymph # (Auto) [place] # (Auto) Eos # (Auto) Baso # (Auto) Abs Immat Gran (auto) Absolute Neuts (auto) Absolute Nucleated RBC Nucleated RBC % (auto) PT INR Anion Gap 15 Estim Creat Clear Calc 25.6 Estimated GFR 29 POC Glucose Random Glucose 121 H Calcium 9.8 Total Bilirubin 0.9 AST 30 ALT 27 Alkaline Phosphatase 96 D Troponin I High Sens 83.2 H* D B-Natriuretic Peptide Total Protein 7.6 Albumin 4.2 Urine Color STRAW Urine Appearance CLEAR Urine pH 6.5 Ur Specific [place] <= 1.005 Urine Protein TRACE Urine Glucose (UA) NEG Urine Ketones NEG Urine Blood 1+ H Urine Nitrite NEG Ur Leukocyte Esterase TRACE H Urine RBC 0-2 Urine WBC 0-2 Ur Squamous Epith Cells 1+ Urine Bacteria 1+ 08/06/21 00:58 MCV MCH MCHC RDW Plt Count MPV Immature Gran % (Auto) Neut % (Auto) Lymph % (Auto) [place] % (Auto) Eos % (Auto) Baso % (Auto) Lymph # (Auto) [place] # (Auto) Eos # (Auto) Baso # (Auto) Abs Immat Gran (auto) Absolute Neuts (auto) Absolute Nucleated RBC Nucleated RBC % (auto) PT INR Anion Gap Estim Creat Clear Calc Estimated GFR POC Glucose 99 Random Glucose Calcium Total Bilirubin AST ALT Alkaline Phosphatase Troponin I High Sens B-Natriuretic Peptide Total Protein Albumin Urine Color Urine Appearance Urine pH Ur Specific [place] Urine Protein Urine Glucose (UA) Urine Ketones Urine Blood Urine Nitrite Ur Leukocyte Esterase Urine RBC Urine WBC Ur Squamous Epith Cells Urine Bacteria Assessment and Plan (1) ACS (acute coronary syndrome): Status: Acute (2) Diabetes: Status: Acute (3) Nonischemic cardiomyopathy: Status: Acute 69-year-old female with a past medical history of hypertension, hyperlipidemia, diabetes, CHF with EF of 43%; anxiety, depression presented to the hospital with a chief complaint of headaches/chest discomfort Chest pain: Reports right-sided chest pain. Currently improving. EKG unc hanged from prior. Troponins indeterminate. Patient has chronically elevated troponins. Also has renal insufficiency resulting reduced clearance. Telemetry Troponins: 20-->80-->130. Notified Cardiology consult. Morphine p.r.n. Patient allergic to aspirin CHF: Stable. Echocardiogram (May 2021) : - The LV function is mildly decreased.?EF is 43%. mild calcification of the aortic valve. ?Mild MR.?mild TR.? Continue home losartan and carvedilol. Continue Lasix. Hypertension/hyperlipidemia: Continue home medications Diabetes: Insulin sliding scale. Hold metformin. CKD: Creatinine baseline 1.7. DVT prophylaxis: Lovenox Code status: Full code Quality Stroke Does the patient have a stroke diagnosis?: No VTE Prior VTE?: No VTE Risk Level:: Medical - moderate - high VTE Device Contraindication: Treatment Not Indicated VTE Drug Contraindication: N/A - Med Ordered
--- NOTE | 2021-08-06 02:30 | ECG_ITS ---
Test Reason : chest pain Blood Pressure : / mmHG Vent. Rate : 083 BPM Atrial Rate : 083 BPM P-R Int : 170 ms QRS Dur : 150 ms QT Int : 438 ms P-R-T Axes : 065 -21 085 degrees QTc Int : 514 ms Normal sinus rhythm Left bundle branch block Abnormal ECG No significant changes seen Referred By: Davy Bright Electronically Signed By:VALENTINE SERRANO MD
[2021-08-06 04:15] LABS: Basophils Percent Auto 0.5 % (0-2); Eosinophils Absolute Auto 0.1 X10*3/uL (0.0-0.4); Eosinophils Percent Auto 0.8 % (0-4); Hematocrit 33.1 % (37-47); Hemoglobin 10.9 g/dl (12.0-16.0); Imm Gran Abs Auto 0.04 X10*3/uL (0.00-0.03); Imm Gran Pct Auto 0.5 % (0.0-0.4); Lymphocytes Absolute Auto 1.3 X10*3/uL (1.2-4.9); Lymphocytes Percent Auto 16.8 % (20-40); MANUAL DIFF FLAG NO; Mean Corpuscular HGB Conc 32.9 g/dl (31.0-35.0); Mean Corpuscular Hemoglobin 29.7 pg (27.0-33.0); Mean Corpuscular Volume 90.2 fL (80-98); Mean Platelet Volume 10.4 fL (9.4-12.3); Monocytes Absolute Auto 0.7 X10*3/uL (0.1-1.2); Monocytes Percent Auto 9.3 % (2-11); Neutrophils Absolute Auto 5.4 X10*3/uL (2.0-8.3); Neutrophils Percent Auto 72.1 % (45-73); Platelet Count 251 X10*3/uL (160-400); Red Blood Count 3.67 X10*6/uL (4.20-5.50); Red Cell Distribution Width 13.2 % (11.0-16.0); White Blood Count 7.5 X10*3/uL (4.8-10.8)
[2021-08-06 04:38] LABS: Anion Gap 14 (12-20); Blood Urea Nitrogen 24 mg/dL (9-16); Calcium 9.7 mg/dL (8.4-10.2); Carbon Dioxide 25 mmol/L (22-29); Chloride 104 mmol/L (96-108); Creatinine Clr Calc Pharmacy 25.4; Estimated Glomerular Filt Rate 29; Glucose Random 115 mg/dL (60-115); Potassium 3.9 mmol/L (3.3-5.1); Sodium 139 mmol/L (135-145)
[2021-08-06 04:45] LABS: Troponin-I High Sensitivity 139.8 ng/L (<3.5-17.0)
[2021-08-06 07:21] LABS: COVID-19 Test Negative (Negative)
[2021-08-06 08:13] LABS: Glucose, Whole Blood 101 mg/dL (60-115)
[2021-08-06] MEDS: Furosemide 20 MG TABLET PO (08:18)
[2021-08-06] MEDS: Cholecalciferol (Vitamin D3) 25 MCG TABLET PO (08:18)
[2021-08-06] MEDS: Multivitamin TABLET 1 TAB PO (08:18)
[2021-08-06] MEDS: Atorvastatin Calcium 80 MG TABLET PO (08:18)
[2021-08-06] MEDS: Omeprazole 20 MG CAPSULE.DR PO (08:18)
[2021-08-06] MEDS: Losartan Potassium 50 MG TABLET PO ×2 (08:18→20:27)
[2021-08-06] MEDS: busPIRone HCl 5 MG TABLET 7.5 MG PO (08:18)
[2021-08-06] MEDS: Enoxaparin Sodium 30 MG/0.3 ML SYRINGE SUBCUT (08:19)
--- NOTE | 2021-08-06 09:00 | CA_ITS ---
Transthoracic Echocardiogram Patient (Last, First, Middle): Alicia Noel, Gender: Female Date of : 1945 Age: 75 Procedure Date: 08/06/2021 Procedure Type: Transthoracic Echocardiogram Location: ER Height: 152.4 cm Weight: 77.57 kg BSA: 1.75 m2 Heart Rate: bpm BP: 154 / 66 mmHg Cafe Assistant: Referring MD: Teja Kline MD Optical Effects Line Up Person: Nick Rivera MD Symptoms: chest pain Study Quality: Fair ECG Rhythm: Sinus Conclusions: - [id number] LV systolic dysfunction with impaired relaxation filling pattern with no new regional wall motion abnormalities Findings Left Ventricle Normal left ventricular cavity size. There is mildly increased left ventricular wall thickness. The left ventricular systolic function is mild to moderately decreased. The visually estimated ejection fraction is between 40-45%. There is paradoxical septal motion consistent with a left bundle branch block. Spectral Doppler is indicative of an impaired relaxation filling pattern. E/E prime ratio is between 8 and 15 consistent with indeterminate filling pressures. Pericardium/Pleural There is no evidence of pericardial effusion. Prior Study Comparison No significant change compared to prior study. Measurements 2D Linear Measurements IVSd: 1.24 0.6-0.9/0.6-1.0 cm LVIDd: 4.63 3.9-5.3/4.2-5.9 cm LVIDd Index: 2.65 2.4-3.2/2.2-3.1 cm/m2 LVIDs: 3.75 2.0-3.6 cm LVPWd: 1.21 0.7-1.1 cm LV Mass: 265.87 67-162/88-224 g LV Mass Index: 151.92 43-95/49-115 g/m2 2D Systolic Function EF 4C: 44.10 >55% EF 2C: 47.00 >55% EF BiP: 43.70 >55% Updated in Other Vendor System with Status of Final Nick Rivera MD electronically signed on 08/06/2021 1:34:11 PM with status of Final
[2021-08-06 11:35] LABS: Troponin-I High Sensitivity 157.1 ng/L (<3.5-17.0)
--- NOTE | 2021-08-06 11:37 | PM.CNCAR ---
History of Present Illness History of Present Illness Date of Service: 08/06/21 Requesting physician: Teja Kline Consult reason: troponin elevation and other (Hypertensive urgency) Chief complaint: Chest pain Narrative: I was requested to see Alicia in cardiology consultation today because of abnormal troponin and right-sided chest pressure. She is a 75-year-old female with difficult control blood pressure due to intolerance to multiple antihypertensive regimen in the past and also side effects related to current therapy. She sees Dr. Alcazar as an outpatient. Prior history of nonischemic cardiomyopathy as per the chart with LVEF of 43% by last echocardiogram in May. She has labile blood pressure. She is currently on carvedilol and losartan at home. She also on Lasix at home, but no clear history of congestive heart failure. She also has significant history of anxiety/panic. With anxiety her blood pressure tends to significantly elevated. Yesterday's similarly she was anxious because of her [employer] [facility] in [place] and has been getting anxious and started having headaches and subsequently right-sided chest pressure. She reported a blood pressure at home at systolic 220. She has level came to the emergency room. In emergency room a blood pressures been better controlled. Her EKG was nonischemic however troponins were performed and there were elevated and a rising consistent with myocardial injury related to hypertensive urgency. She is currently chest pain free. No shortness of breath. No orthopnea, PND. Review of Systems Constitutional: Constitutional: Reports no additional constitutional complaints and Reports headache(s) Eyes: Eyes: Reports no additional eye complaints ENT: Reports headache(s) Cardiovascular: Cardiovascular: Reports chest pain, Denies leg edema, Denies lightheadedness, Denies Loss of Consciousness, Denies palpitations and Denies dyspnea Respiratory: Respiratory: Reports no additional respiratory complaints and Denies dyspnea Gastrointestinal: Gastrointestinal: Reports no additional gastrointestinal complaints Genitourinary: Genitourinary: Reports no additional female genitourinary complaints Musculoskeletal: Musculoskeletal: Reports no additional musculoskeletal complaints Neurologic: Reports headache(s) Psychiatric: Psychiatric: Reports anxiety Endocrine: Endocrine: Reports no additional endocrine complaints and Denies palpitations Hematologic/Lymphatic: Hematologic/Lymphatic: Reports no additional hematologic/lymphatic complaints Allergic/Immunologic: Allergic/Immunologic: Reports no additional allergic/immunologic complaints PMFSH Past Medical History Medical History Anxiety Benign essential hypertension Cardiomyopathy Conjunctival hemorrhage of right eye COVID-19 Depression 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 GERD (gastroesophageal reflux disease) Hyperkalemia Left bundle branch block Nonischemic cardiomyopathy Obesity (BMI 30-39.9) Pneumonia due to COVID-19 virus Pure hypercholesterolemia Renal artery stenosis Stasis edema of both lower extremities Urinary incontinence Vertigo Family History Family History Father CVD (cardiovascular disease) Myocardial infarction Mother Myocardial infarction CVD (cardiovascular disease) Brother Myocardial infarction Family/Other FH: prostate cancer Surgical History Surgical History History of cataract surgery History of cholecystectomy History of lumpectomy of left breast Hx of colonoscopy Hx of myomectomy Social History Social History Household Members: None Housing: Apartment Do you presently have visiting nurse or other home services: No Alcohol intake: never Patient Tobacco Use Status: Former Tobacco user Advance Directives: No Advance Directives Information Provided: Yes service: No Current occupational status: disabled Meds Allergies Allergy/AdvReac Type Severity Reaction Status Date / Time aspirin [Aspirin] Allergy Severe MOUTH Verified 06/22/21 10:04 SWELLING hydrochlorothiazide Allergy Intermediate DROP IN Verified 06/22/21 10:04 [Hydrochlorothiazide] BLOOD PRESSURE Penicillins [PENICILLINS] Allergy Intermediate ITCHING Verified 06/22/21 10:04 caffeine [Caffeine] Allergy Mild NERVOUSNESS Verified 06/22/21 10:04 lisinopril [Lisinopril] Allergy Mild CHANGES IN Verified 06/22/21 10:04 BLOOD PRESSURE ranitidine [RANITIDINE] Allergy Mild HEADACHE Verified 06/22/21 10:04 amlodipine [AMLODIPINE] Allergy Unknown UNKNOWN Verified 06/22/21 10:04 amoxicillin Allergy Unknown itching, Verified 06/22/21 10:04 severe with rash diclofenac Allergy Unknown Unknown Verified 06/22/21 10:04 escitalopram Allergy Unknown abdominal Verified 06/22/21 10:04 discomfort, drowsiness esomeprazole [Nexium] Allergy Unknown Unknown Verified 06/22/21 10:04 isosorbide [ISOSORBIDE] Allergy Unknown UNKNOWN Verified 06/22/21 10:04 lidocaine [Lidoderm] Allergy Unknown weakness Verified 06/22/21 10:04 mirtazapine Allergy Unknown Unknown Verified 06/22/21 10:04 nystatin Allergy Unknown rash Verified 06/22/21 10:04 sertraline [SERTRALINE] Allergy Unknown UNKNOWN Verified 06/22/21 10:04 dexlansoprazole AdvReac Severe AGITATION Verified 06/22/21 10:04 [From DEXILANT] hydrocortisone AdvReac Mild RAISES Verified 06/22/21 10:04 [From Cortizone-10] BLOOD SUGAR topiramate [From TOPAMAX] AdvReac Unknown AGITATION Verified 06/22/21 10:04 From PLAVIX Allergy Unknown PT UNSURE Uncoded 06/22/21 10:04 OF REACTION Medical tape Allergy Unknown Rash Uncoded 06/22/21 10:04 Active Medications: Current Medications Acetaminophen (Acetaminophen 325 Mg Tablet) 650 mg PO Q6H PRN PRN Reason: Pain, Mild (Pain Scale 1-3) Al Hydroxide/Mg Hydroxide (Magnesium Hydrox/Alum Hydrox 30 Ml Oral.Susp) 10 ml PO ONCE PRN PRN Reason: Stomach Upset Alprazolam (Alprazolam 0.5 Mg Tablet) 0.5 mg PO BID PRN PRN Reason: Anxiety Atorvastatin Calcium (Atorvastatin Calcium 80 Mg Tablet) 80 mg PO DAILY [facility] Last Admin: 08/06/21 08:18 Dose: 80 mg Documented by: Buspirone HCl (Buspirone Hcl 5 Mg Tablet) 7.5 mg PO DAILY [facility] Last Admin: 08/06/21 08:18 Dose: 7.5 mg Documented by: Carvedilol (Carvedilol 6.25 Mg Tablet) 6.25 mg PO BID ANAT; Protocol Dextrose (Dextrose 50 % 25 Gm/50 Ml Vial) 25 gm IVPUSH Q15M PRN; Protocol PRN Reason: per Hypoglycemia Standing Ord. Enoxaparin Sodium (Enoxaparin Sodium 30 Mg/0.3 Ml Syringe) 30 mg SUBCUT Q24H [facility] Last Admin: 08/06/21 08:19 Dose: 30 mg Documented by: Furosemide (Furosemide 20 Mg Tablet) 20 mg PO DAILY ANAT; Protocol Last Admin: 08/06/21 08:18 Dose: 20 mg Documented by: Glucose (Glucose Gel 15 Gm Gel..Gram.) 15 gm PO Q15M PRN; Protocol PRN Reason: per Hypoglycemia Standing Ord. Insulin Human Lispro (Insulin Lispro 100 Unit/Ml 3 Ml Vial) 0 unit SUBCUT QIDACHS [facility]; Protocol Last Admin: 08/06/21 08:20 Dose: Not Given Documented by: Losartan Potassium (Losartan Potassium 50 Mg Tablet) 50 mg PO DAILY [facility]; Protocol Last Admin: 08/06/21 08:18 Dose: 50 mg Documented by: Melatonin (Melatonin 3 Mg Tablet) 6 mg PO BEDTIME PRN PRN Reason: Insomnia Morphine Sulfate (Morphine Sulfate 2 Mg/Ml Cartridge) 1 mg IVPUSH Q4H PRN; Protocol PRN Reason: Chest Pain Multivitamins/Vitamin C (Multivitamin Tablet) 1 tab PO DAILY [facility] Last Admin: 08/06/21 08:18 Dose: 1 tab Documented by: Omeprazole (Omeprazole 20 Mg Capsule.Dr) 20 mg PO DAILY@0630 [facility] Last Admin: 08/06/21 08:18 Dose: 20 mg Documented by: Senna (Sennosides 8.6 Mg Tablet) 17.2 mg PO BEDTIME PRN PRN Reason: Constipation Sodium Chloride (0.9 % Sodium Chloride Flush 3 Ml Syringe) 3 ml IVFLUSH QSHIFT [facility] Vitamin D (Cholecalciferol (Vitamin D3) 25 Mcg Tablet) 25 mcg PO DAILY [facility] Last Admin: 08/06/21 08:18 Dose: 25 mcg Documented by: Home Medications Medication Instructions Recorded Confirmed Last Taken Type acetaminophen 500 mg tablet 500 mg PO .TWICE A DAY PRN tab 08/16/20 08/06/21 Unknown History (Tylenol Extra Strength) alprazolam 0.5 mg tablet 0.5 mg PO BID PRN 08/16/20 08/06/21 02/22/21 History aluminum-mag hydroxide-simethicone 10 ml PO ONCE PRN ml 08/16/20 08/06/21 02/21/21 History 200 mg-200 mg-20 mg/5 mL oral susp buspirone 7.5 mg tablet 7.5 mg PO DAILY 08/16/20 08/06/21 02/21/21 History ciclopirox 0.77 % topical cream 1 applic TOPICAL BID 02/22/21 08/06/21 02/21/21 History multivitamin 1 tab PO DAILY 03/09/21 08/06/21 Unknown History metformin 500 mg tablet 500 mg PO BID tab 04/28/21 08/06/21 Unknown History losartan 100 mg tablet 50 mg PO DAILY tab 06/22/21 08/06/21 Unknown History cholecalciferol (vitamin D3) 25 25 mcg PO DAILY 08/06/21 08/06/21 Unknown History mcg (1,000 unit) tablet (Vitamin D3) nystatin 100,000 unit/gram topical 1 appl TOPICAL BID 08/06/21 08/06/21 Unknown History powder propylene glycol 0.6 % eye drops 1 drp OPHTHALMIC (EYE) BID PRN 08/06/21 08/06/21 Unknown History (Systane Balance) Physical Exam Vital Signs: Vital Signs: Last Vital Signs Temp 98.3 F 08/06/21 11:11 Pulse 76 08/06/21 11:11 Resp 15 08/06/21 11:11 BP 154/66 H 08/06/21 11:11 Pulse Ox 97 08/06/21 11:11 Body Mass Index 33.5 Const: General: cooperative, comfortable, no acute distress, alert, awake and anxious Nutritional Appearance: overweight Orientation/consciousness: patient oriented x3 Limitations: no limitations HENMT: Head: Yes normocephalic Neck: Neck: Yes trachea midline, Yes supple and Yes no JVD Chest: Chest palpation & inspection: normal inspection of the chest Resp: Effort & Inspection: normal respiratory effort Auscultation: clear to auscultation bilaterally Cardio: Jugular venous distension: no JVD Palpation: normal PMI Rate: regular rate Rhythm: regular rhythm Heart sounds: S1 normal heart sound present, S2 normal heart sound present, no click, no gallops, no murmurs and no rubs GI: Auscultation: normal bowel sounds Skin: General skin exam: no rashes or lesions noted Neuro: General: patient oriented x3 and no focal motor deficits Extrem: General: Yes no clubbing, cyanosis or edema Psych: Affect: Anxious affect present Results Labs and Meds Result diagrams: 08/06/21 04:10 08/06/21 04:10 Lab results: Laboratory Results - last 24 hr 08/05/21 08/05/21 08/05/21 22:06 22:06 22:06 WBC 6.3 RBC 3.70 L Hgb 11.1 L Hct 34.0 L MCV 91.9 MCH 30.0 MCHC 32.6 RDW 13.3 Plt Count 277 MPV 10.6 Immature Gran % (Auto) 0.5 H Neut % (Auto) 71.8 Lymph % (Auto) 17.8 L [place] % (Auto) 8.3 Eos % (Auto) 1.1 Baso % (Auto) 0.5 Lymph # (Auto) 1.1 L [place] # (Auto) 0.5 Eos # (Auto) 0.1 Baso # (Auto) 0.0 Abs Immat Gran (auto) 0.03 Absolute Neuts (auto) 4.5 Absolute Nucleated RBC 0.000 Nucleated RBC % (auto) 0.0 PT 11.8 INR 1.0 Sodium Potassium Chloride Carbon Dioxide Anion Gap BUN Creatinine Estim Creat Clear Calc Estimated GFR POC Glucose Random Glucose Calcium Total Bilirubin AST ALT Alkaline Phosphatase Troponin I High Sens 20.2 H* B-Natriuretic Peptide 71 Total Protein Albumin Urine Color Urine Appearance Urine pH Ur Specific [place] Urine Protein Urine Glucose (UA) Urine Ketones Urine Blood Urine Nitrite Ur Leukocyte Esterase Urine RBC Urine WBC Ur Squamous Epith Cells Urine Bacteria COVID-19 (FREDERICK) COVID-19 [employer] 08/05/21 08/05/21 08/06/21 22:31 22:31 00:55 WBC RBC Hgb Hct MCV MCH MCHC RDW Plt Count MPV Immature Gran % (Auto) Neut % (Auto) Lymph % (Auto) [place] % (Auto) Eos % (Auto) Baso % (Auto) Lymph # (Auto) [place] # (Auto) Eos # (Auto) Baso # (Auto) Abs Immat Gran (auto) Absolute Neuts (auto) Absolute Nucleated RBC Nucleated RBC % (auto) PT INR Sodium 137 Potassium 5.0 Chloride 104 Carbon Dioxide 23 Anion Gap 15 BUN 24 H Creatinine 1.70 H Estim Creat Clear Calc 25.6 Estimated GFR 29 POC Glucose Random Glucose 121 H Calcium 9.8 Total Bilirubin 0.9 AST 30 ALT 27 Alkaline Phosphatase 96 D Troponin I High Sens 83.2 H* D B-Natriuretic Peptide Total Protein 7.6 Albumin 4.2 Urine Color STRAW Urine Appearance CLEAR Urine pH 6.5 Ur Specific [place] <= 1.005 Urine Protein TRACE Urine Glucose (UA) NEG Urine Ketones NEG Urine Blood 1+ H Urine Nitrite NEG Ur Leukocyte Esterase TRACE H Urine RBC 0-2 Urine WBC 0-2 Ur Squamous Epith Cells 1+ Urine Bacteria 1+ COVID-19 (FREDERICK) COVID-19 [employer] 08/06/21 08/06/21 08/06/21 00:58 04:10 04:10 WBC 7.5 RBC 3.67 L Hgb 10.9 L Hct 33.1 L MCV 90.2 MCH 29.7 MCHC 32.9 RDW 13.2 Plt Count 251 MPV 10.4 Immature Gran % (Auto) 0.5 H Neut % (Auto) 72.1 Lymph % (Auto) 16.8 L [place] % (Auto) 9.3 Eos % (Auto) 0.8 Baso % (Auto) 0.5 Lymph # (Auto) 1.3 [place] # (Auto) 0.7 Eos # (Auto) 0.1 Baso # (Auto) 0.0 Abs Immat Gran (auto) 0.04 H Absolute Neuts (auto) 5.4 Absolute Nucleated RBC 0.000 Nucleated RBC % (auto) 0.0 PT INR Sodium 139 Potassium 3.9 D Chloride 104 Carbon Dioxide 25 Anion Gap 14 BUN 24 H Creatinine 1.71 H Estim Creat Clear Calc 25.4 Estimated GFR 29 POC Glucose 99 Random Glucose 115 Calcium 9.7 Total Bilirubin AST ALT Alkaline Phosphatase Troponin I High Sens B-Natriuretic Peptide Total Protein Albumin Urine Color Urine Appearance Urine pH Ur Specific [place] Urine Protein Urine Glucose (UA) Urine Ketones Urine Blood Urine Nitrite Ur Leukocyte Esterase Urine RBC Urine WBC Ur Squamous Epith Cells Urine Bacteria COVID-19 (FREDERICK) COVID-19 Clin Com 08/06/21 08/06/21 08/06/21 04:11 07:01 07:23 WBC RBC Hgb Hct MCV MCH MCHC RDW Plt Count MPV Immature Gran % (Auto) Neut % (Auto) Lymph % (Auto) [place] % (Auto) Eos % (Auto) Baso % (Auto) Lymph # (Auto) [place] # (Auto) Eos # (Auto) Baso # (Auto) Abs Immat Gran (auto) Absolute Neuts (auto) Absolute Nucleated RBC Nucleated RBC % (auto) PT INR Sodium Potassium Chloride Carbon Dioxide Anion Gap BUN Creatinine Estim Creat Clear Calc Estimated GFR POC Glucose 101 Random Glucose Calcium Total Bilirubin AST ALT Alkaline Phosphatase Troponin I High Sens 139.8 H* D B-Natriuretic Peptide Total Protein Albumin Urine Color Urine Appearance Urine pH Ur Specific [place] Urine Protein Urine Glucose (UA) Urine Ketones Urine Blood Urine Nitrite Ur Leukocyte Esterase Urine RBC Urine WBC Ur Squamous Epith Cells Urine Bacteria COVID-19 (FREDERICK) Negative COVID-19 Clin Com See Note 08/06/21 11:00 WBC RBC Hgb Hct MCV MCH MCHC RDW Plt Count MPV Immature Gran % (Auto) Neut % (Auto) Lymph % (Auto) [place] % (Auto) Eos % (Auto) Baso % (Auto) Lymph # (Auto) [place] # (Auto) Eos # (Auto) Baso # (Auto) Abs Immat Gran (auto) Absolute Neuts (auto) Absolute Nucleated RBC Nucleated RBC % (auto) PT INR Sodium Potassium Chloride Carbon Dioxide Anion Gap BUN Creatinine Estim Creat Clear Calc Estimated GFR POC Glucose Random Glucose Calcium Total Bilirubin AST ALT Alkaline Phosphatase Troponin I High Sens 157.1 H* B-Natriuretic Peptide Total Protein Albumin Urine Color Urine Appearance Urine pH Ur Specific [place] Urine Protein Urine Glucose (UA) Urine Ketones Urine Blood Urine Nitrite Ur Leukocyte Esterase Urine RBC Urine WBC Ur Squamous Epith Cells Urine Bacteria COVID-19 (FREDERICK) COVID-19 Clin Com Assessment and Plan (1) Elevated troponin: Status: Acute Rising troponin consistent with myocardial injury. This is most likely secondary to hypertensive urgency. See below for treatment. Continue to trend troponins till there is a downtrending troponin. Echocardiogram to evaluate for worsening LV systolic function or new regional wall motion abnormality. Otherwise continue treatment of her hypertension, see below. There is no need for anticoagulation at this point time. Outpatient myocardial perfusion imaging will be pursued. (2) Hypertensive urgency: Status: Acute Hypertensive urgency leading to hospitalization again. She has significantly labile blood pressures outpatient which has made her blood pressure control as outpatient difficult. At this point time would consider adding Aldactone 25 mg to her regimen. Also increase losartan to 50 mg b.i.d.. Follow basic metabolic profile tomorrow. If her blood pressure is better controlled and her troponin down trending can be discharged home with follow-up as outpatient. There is prior renal imaging suggestive left renal artery stenosis which could explain her uncontrolled blood pressure. This needs to be pursued and may benefit from renal artery revascularization with stenting. Will follow with you anel Procedures Date of Service Date of Service: 08/06/21
[2021-08-06] MEDS: carvediloL 6.25 MG TABLET PO ×2 (12:01→20:26)
[2021-08-06 12:34] LABS: Glucose, Whole Blood 106 mg/dL (60-115)
[2021-08-06] MEDS: Spironolactone 25 MG TABLET PO (14:57)
--- NOTE | 2021-08-06 15:00 | PC.NURSE ---
PT PENDING ADMISSION, REMAINS IN THE ED UNTIL BEDASSIGNMENT. PT HAD BEDSIDE ECHO, CONTINUE TO FOLLOW TROP TRENDS. AOX4 ASSISTED AMB WITH CANE. NEEDS BEING MET TOLERATING PO
[2021-08-06 15:47] LABS: Troponin-I High Sensitivity 123.3 ng/L (<3.5-17.0)
[2021-08-06 17:09] LABS: Glucose, Whole Blood 161 mg/dL (60-115)
[2021-08-06 19:34] LABS: Glucose, Whole Blood 152 mg/dL (60-115)
[2021-08-06] MEDS: Insulin Lispro 100 UNIT/ML 3 ML VIAL SUBCUT (19:44)
[2021-08-06] MEDS: Acetaminophen 325 MG TABLET 650 MG PO (19:45)
--- NOTE | 2021-08-06 19:50 | PC.NURSE ---
RN assumed care at 1900. Pt alert and oriented x4, calm and cooperative. Pt states 4/10 headache, PO Tylenol given. Pt denies N/V. Pt eating dinner and tolerated well. Pt denies chest pain or SOB at this time. Pt resting in stretcher without issues. IV intact. Vitals stable. Pt remains NSR on monitor. Will continue to monitor.
[2021-08-06 21:22] LABS: Glucose, Whole Blood 113 mg/dL (60-115)
[2021-08-06] MEDS: 0.9 % Sodium Chloride Flush 3 ML SYRINGE IVFLUSH (22:31)
[2021-08-06] MEDS: ALPRAZolam 0.5 MG TABLET PO (23:22)
[2021-08-07] VITALS (9 sets, daily range): BP systolic 97–142; BP diastolic 47–70; PULSE 66–80; RESP 16–18; TEMP 36.2–36.9; O2SAT 95–96
[2021-08-07] MEDS: Enoxaparin Sodium 30 MG/0.3 ML SYRINGE SUBCUT (06:32)
[2021-08-07] MEDS: Omeprazole 20 MG CAPSULE.DR PO (06:32)
[2021-08-07 07:43] LABS: Glucose, Whole Blood 145 mg/dL (60-115)
[2021-08-07] MEDS: carvediloL 6.25 MG TABLET PO ×2 (10:00→20:26)
[2021-08-07] MEDS: 0.9 % Sodium Chloride Flush 3 ML SYRINGE IVFLUSH ×2 (10:00→20:31)
[2021-08-07] MEDS: Multivitamin TABLET 1 TAB PO (10:01)
[2021-08-07] MEDS: Atorvastatin Calcium 80 MG TABLET PO (10:01)
[2021-08-07] MEDS: Furosemide 20 MG TABLET PO (10:01)
[2021-08-07] MEDS: Losartan Potassium 50 MG TABLET PO (10:01)
[2021-08-07] MEDS: Cholecalciferol (Vitamin D3) 25 MCG TABLET PO (10:02)
[2021-08-07] MEDS: Spironolactone 25 MG TABLET PO (10:02)
[2021-08-07] MEDS: busPIRone HCl 5 MG TABLET 7.5 MG PO (10:02)
[2021-08-07 11:19] LABS: Glucose, Whole Blood 194 mg/dL (60-115)
--- NOTE | 2021-08-07 11:44 | HO.PM.IMPN ---
Subjective Subjective Date of Service: 08/08/21 Interval History: Seen in f/u for HTN urgency, chest pain. BP now swinging in the other direction. She has no chest pain, no sob, or dizzienss at movment Review of Systems Gen: no fever Resp: no sob, no cough CV: no chest, no ADRIAN, no leg edema GI: No n/v, no abd pain Neuro: No confusion Physical Exam Vital Signs: Vital Signs: Last Vital Signs Temp 97.2 F 08/07/21 10:55 Pulse 72 08/07/21 10:55 Resp 18 08/07/21 10:55 BP 97/53 L 08/07/21 10:55 Pulse Ox 95 08/07/21 10:55 Body Mass Index 32.5 General: AO X 3, no acute distress Resp: CTA bilateral CVS: S1,S2,RRR GI: +BS, NT, no distention Skin: No rash Neuro: motor grossly intact Psych: appropriate affect Objective Data Active Medications Acetaminophen (Acetaminophen 325 Mg Tablet) 650 mg PO Q6H PRN PRN Reason: Pain, Mild (Pain Scale 1-3) Last Admin: 08/06/21 19:45 Dose: 650 mg Documented by: ANTHONY Al Hydroxide/Mg Hydroxide (Magnesium Hydrox/Alum Hydrox 30 Ml Oral.Susp) 10 ml PO ONCE PRN PRN Reason: Stomach Upset Alprazolam (Alprazolam 0.5 Mg Tablet) 0.5 mg PO BID PRN PRN Reason: Anxiety Last Admin: 08/06/21 23:22 Dose: 0.5 mg Documented by: JONAS Atorvastatin Calcium (Atorvastatin Calcium 80 Mg Tablet) 80 mg PO DAILY [facility] Last Admin: 08/07/21 10:01 Dose: 80 mg Documented by: BROLawrence Buspirone HCl (Buspirone Hcl 5 Mg Tablet) 7.5 mg PO DAILY [facility] Last Admin: 08/07/21 10:02 Dose: 7.5 mg Documented by: JOE Carvedilol (Carvedilol 6.25 Mg Tablet) 6.25 mg PO BID [facility]; Protocol Last Admin: 08/07/21 10:00 Dose: 6.25 mg Documented by: JOE Dextrose (Dextrose 50 % 25 Gm/50 Ml Vial) 25 gm IVPUSH Q15M PRN; Protocol PRN Reason: per Hypoglycemia Standing Ord. Enoxaparin Sodium (Enoxaparin Sodium 30 Mg/0.3 Ml Syringe) 30 mg SUBCUT Q24H [facility] Last Admin: 08/07/21 06:32 Dose: 30 mg Documented by: JONAS Furosemide (Furosemide 20 Mg Tablet) 20 mg PO DAILY [facility]; Protocol Last Admin: 08/07/21 10:01 Dose: 20 mg Documented by: JOE Glucose (Glucose Gel 15 Gm Gel..Gram.) 15 gm PO Q15M PRN; Protocol PRN Reason: per Hypoglycemia Standing Ord. Insulin Human Lispro (Insulin Lispro 100 Unit/Ml 3 Ml Vial) 0 unit SUBCUT QIDACHS [facility]; Protocol Last Admin: 08/07/21 07:48 Dose: Not Given Documented by: JOE Non-Admin Reason: No Insulin Coverage Melatonin (Melatonin 3 Mg Tablet) 6 mg PO BEDTIME PRN PRN Reason: Insomnia Morphine Sulfate (Morphine Sulfate 2 Mg/Ml Cartridge) 1 mg IVPUSH Q4H PRN; Protocol PRN Reason: Chest Pain Multivitamins/Vitamin C (Multivitamin Tablet) 1 tab PO DAILY [facility] Last Admin: 08/07/21 10:01 Dose: 1 tab Documented by: JOE Omeprazole (Omeprazole 20 Mg Capsule.Dr) 20 mg PO DAILY@0630 [facility] Last Admin: 08/07/21 06:32 Dose: 20 mg Documented by: JONAS Senna (Sennosides 8.6 Mg Tablet) 17.2 mg PO BEDTIME PRN PRN Reason: Constipation Sodium Chloride (0.9 % Sodium Chloride Flush 3 Ml Syringe) 3 ml IVFLUSH QSHIFT [facility] Last Admin: 08/07/21 10:00 Dose: 3 ml Documented by: JOE Vitamin D (Cholecalciferol (Vitamin D3) 25 Mcg Tablet) 25 mcg PO DAILY [facility] Last Admin: 08/07/21 10:02 Dose: 25 mcg Documented by: JOE Labs CBC & Chem 7: 08/06/21 04:10 08/06/21 04:10 Labs: Laboratory Results - last 24 hr 08/06/21 08/06/21 08/06/21 12:23 15:03 17:02 POC Glucose 106 161 H Troponin I High Sens 123.3 H* 08/06/21 08/06/21 08/07/21 19:30 21:18 07:27 POC Glucose 152 H 113 145 H Troponin I High Sens 08/07/21 10:51 POC Glucose 194 H Troponin I High Sens Microbiology Microbiology Results: Microbiology 08/05/21 22:38 Urine Culture - Final Urine clean catch - Urine wallace top No growth. Assessment and Plan (1) Hypertensive urgency: Status: Acute (2) Elevated troponin: Status: Acute (3) 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: Status: Acute Assessment and Plan: ?69-year-old female with a past medical history of hypertension, hyperlipidemia, diabetes, CHF with EF of 43%; anxiety, depression presented to the hospital with a chief complaint of headaches/chest discomfort Chest pain: mild increase in troponin, no ECG changes. pain resolved and trop peaked and trended. Likly related to High BP cardiology advised adddressing underlying HTN. Chronic systolic heart failure, stable with no decompensatio Echo 08/06 EF 40 to 45 Continue coreg, Lasix, Losartan on hold today d/t low BP . Hypertension--with labile BP, now on low side. Holding Losartan, and Aldactone has history of HARRIET, doppler US tomorow to reassess and Diabetes:? Insulin sliding scale.? Hold metformin. CKD:? Creatinine baseline 1.7. Quality Stroke Does the patient have a stroke diagnosis?: No VTE Prior VTE?: No VTE Risk Level:: Medical - moderate - high VTE Device Contraindication: Treatment Not Indicated VTE Drug Contraindication: N/A - Med Ordered
[2021-08-07] MEDS: Insulin Lispro 100 UNIT/ML 3 ML VIAL SUBCUT (12:07)
--- NOTE | 2021-08-07 12:18 | PM.PNCARD ---
Subjective Subjective Date of Service: 08/07/21 Principal diagnosis: Hypertensive urgency Interval history: Patient received her medications as plan yesterday and now currently having low blood pressure. She is feeling weak. No more chest pain. However troponins have been up and down consistent with NSTEMI related to hypertensive urgency. Review of Systems Constitutional: Denies body ache(s), Reports fatigue, Denies fever(s) and Reports weakness Reports system reviewed and no additional complaints, except as documented Cardiovascular: Denies chest pain, Denies lightheadedness, Denies Loss of Consciousness, Denies palpitations and Denies dyspnea Respiratory: Reports no additional respiratory complaints and Denies dyspnea Gastrointestinal: Reports no additional gastrointestinal complaints Musculoskeletal: Reports no additional musculoskeletal complaints Skin/Breast: Reports system reviewed and no additional complaints, except as docu Reports system reviewed and no additional complaints, except as documented and Reports weakness Psychiatric: Reports no additional psychiatric complaints Endocrine: Reports no additional endocrine complaints, Reports fatigue and Denies palpitations Physical Exam Vital Signs: Last Vital Signs Temp 97.2 F 08/07/21 10:55 Pulse 72 08/07/21 10:55 Resp 18 08/07/21 10:55 BP 97/53 L 08/07/21 10:55 Pulse Ox 95 08/07/21 10:55 Body Mass Index 32.5 Const General: cooperative, comfortable, no acute distress, alert and awake Nutritional Appearance: obese Orientation/consciousness: patient oriented x3 Neck Neck: Yes trachea midline, Yes supple and Yes no JVD Resp Effort & Inspection: normal respiratory effort Auscultation: clear to auscultation bilaterally Cardio Jugular venous distension: no JVD Palpation: normal PMI Rate: regular rate Rhythm: regular rhythm Heart sounds: S1 normal heart sound present, S2 normal heart sound present, no click, no gallops and no murmurs GI Auscultation: normal bowel sounds Neuro General: patient oriented x3 and no focal motor deficits Extrem General: Yes no clubbing, cyanosis or edema Results Labs and Meds Result diagrams: 08/06/21 04:10 08/06/21 04:10 Lab results: Laboratory Results - last 24 hr 08/06/21 08/06/21 08/06/21 12:23 15:03 17:02 POC Glucose 106 161 H Troponin I High Sens 123.3 H* 08/06/21 08/06/21 08/07/21 19:30 21:18 07:27 POC Glucose 152 H 113 145 H Troponin I High Sens 08/07/21 10:51 POC Glucose 194 H Troponin I High Sens Progress Note: A&P Assessment and plan (1) NSTEMI (non-ST elevated myocardial infarction): Status: Acute Assessment and Plan: NSTEMI which is secondary to hypertensive urgency. Blood pressure is not better control and her symptoms are resolved. There is no need for anticoagulation. Consider low-dose aspirin and statin therapy. Continue aggressively treat her blood pressure, see below. (2) Hypertensive urgency: Status: Acute Assessment and Plan: Patient presents with hypertensive urgency with reduction her recent medications and then developed low blood pressure and weakness with addition of losartan as well as Aldactone therapy. There is markedly labile blood pressure which is difficult control. At this point time she needs re-evaluation for renal artery stenosis which could cause similar syndrome. Renal duplex tomorrow and if she has significant renal artery stenosis vascular surgery consult for stenting should be considered. Meanwhile hold her losartan and Aldactone today and stagger medications starting tomorrow with Coreg twice a day and losartan 50 mg and 12.5 mg Aldactone at noon time. Will follow with the patient. Fall Risk Details Current Medications: Current Medications Acetaminophen (Acetaminophen 325 Mg Tablet) 650 mg PO Q6H PRN PRN Reason: Pain, Mild (Pain Scale 1-3) Last Admin: 08/06/21 19:45 Dose: 650 mg Documented by: Al Hydroxide/Mg Hydroxide (Magnesium Hydrox/Alum Hydrox 30 Ml Oral.Susp) 10 ml PO ONCE PRN PRN Reason: Stomach Upset Alprazolam (Alprazolam 0.5 Mg Tablet) 0.5 mg PO BID PRN PRN Reason: Anxiety Last Admin: 08/06/21 23:22 Dose: 0.5 mg Documented by: Atorvastatin Calcium (Atorvastatin Calcium 80 Mg Tablet) 80 mg PO DAILY [facility] Last Admin: 08/07/21 10:01 Dose: 80 mg Documented by: Buspirone HCl (Buspirone Hcl 5 Mg Tablet) 7.5 mg PO DAILY [facility] Last Admin: 08/07/21 10:02 Dose: 7.5 mg Documented by: Carvedilol (Carvedilol 6.25 Mg Tablet) 6.25 mg PO BID [facility]; Protocol Last Admin: 08/07/21 10:00 Dose: 6.25 mg Documented by: Dextrose (Dextrose 50 % 25 Gm/50 Ml Vial) 25 gm IVPUSH Q15M PRN; Protocol PRN Reason: per Hypoglycemia Standing Ord. Enoxaparin Sodium (Enoxaparin Sodium 30 Mg/0.3 Ml Syringe) 30 mg SUBCUT Q24H [facility] Last Admin: 08/07/21 06:32 Dose: 30 mg Documented by: Furosemide (Furosemide 20 Mg Tablet) 20 mg PO DAILY [facility]; Protocol Last Admin: 08/07/21 10:01 Dose: 20 mg Documented by: Glucose (Glucose Gel 15 Gm Gel..Gram.) 15 gm PO Q15M PRN; Protocol PRN Reason: per Hypoglycemia Standing Ord. Insulin Human Lispro (Insulin Lispro 100 Unit/Ml 3 Ml Vial) 0 unit SUBCUT QIDACHS [facility]; Protocol Last Admin: 08/07/21 12:07 Dose: 2 unit Documented by: Melatonin (Melatonin 3 Mg Tablet) 6 mg PO BEDTIME PRN PRN Reason: Insomnia Morphine Sulfate (Morphine Sulfate 2 Mg/Ml Cartridge) 1 mg IVPUSH Q4H PRN; Protocol PRN Reason: Chest Pain Multivitamins/Vitamin C (Multivitamin Tablet) 1 tab PO DAILY [facility] Last Admin: 08/07/21 10:01 Dose: 1 tab Documented by: Omeprazole (Omeprazole 20 Mg Capsule.) 20 mg PO DAILY@0630 [facility] Last Admin: 08/07/21 06:32 Dose: 20 mg Documented by: Senna (Sennosides 8.6 Mg Tablet) 17.2 mg PO BEDTIME PRN PRN Reason: Constipation Sodium Chloride (0.9 % Sodium Chloride Flush 3 Ml Syringe) 3 ml IVFLUSH QSHIFT [facility] Last Admin: 08/07/21 10:00 Dose: 3 ml Documented by: Vitamin D (Cholecalciferol (Vitamin D3) 25 Mcg Tablet) 25 mcg PO DAILY [facility] Last Admin: 08/07/21 10:02 Dose: 25 mcg Documented by: Time Spent With Patient Time: Total time spent is greater than 50% in coordination of care (as documented) at patient's floor/unit and/or counseling patient: Time with patient: 15 - 24 minutes Progress Note: Quality Stroke Does the patient have a stroke diagnosis?: No Procedures Date of Service Date of Service: 08/07/21
--- NOTE | 2021-08-07 15:16 | MHC.CM.PN ---
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 PT REPORTS SHE USES A CANE TO AMBULATE AND NO OTHER DME PT HAS A HCP ON FILE AND REPORTS HER PCP IS LIDA LOMAX CURRENT DC PLAN IS HOME WITH RESUMPTION OF VALVE AND REGULATOR REPAIRER PTS SON OR DAUGHTER WILL TRANSPORT
[2021-08-07 16:26] LABS: Glucose, Whole Blood 136 mg/dL (60-115)
--- NOTE | 2021-08-07 19:19 | PC.NURSE ---
Ultrasound of the kidney ordered for patient, needs to be fasting for 6 to 8 hrs, US will be done tomorrow and patient should not have anything to eat in the morning before the procedure. Patient and director of resource development RN aware.
[2021-08-07 20:09] LABS: Glucose, Whole Blood 139 mg/dL (60-115)
[2021-08-07] MEDS: ALPRAZolam 0.5 MG TABLET PO (20:31)
[2021-08-08] VITALS (11 sets, daily range): BP systolic 111–155; BP diastolic 58–69; PULSE 67–86; RESP 18–20; TEMP 36.2–37.1; O2SAT 96–99
[2021-08-08] MEDS: Acetaminophen 325 MG TABLET 650 MG PO (03:36)
[2021-08-08] MEDS: Enoxaparin Sodium 30 MG/0.3 ML SYRINGE SUBCUT (05:15)
[2021-08-08] MEDS: Omeprazole 20 MG CAPSULE.DR PO (05:15)
[2021-08-08 07:27] LABS: Glucose, Whole Blood 119 mg/dL (60-115)
--- NOTE | 2021-08-08 10:39 | PM.PNCARD ---
Subjective Subjective Date of Service: 08/08/21 Principal diagnosis: Hypertensive urgency Interval history: Feels OK. No new complaints. Review of Systems Review of Systems Yes all other systems are reviewed and are negative Cardiovascular: Reports as per HPI, Reports no additional cardiovascular complaints, Denies acrocyanosis, Denies painful fingertips, Denies chest pain, Denies chest pain at rest, Denies diaphoresis, Denies syncope, Denies irregular heart rhythm, Denies claudication, Denies leg edema, Denies lightheadedness, Denies palpitations and Denies dyspnea Respiratory: Denies dyspnea Denies syncope Endocrine: Denies palpitations Physical Exam Vital Signs: Last Vital Signs Temp 97.6 F 08/08/21 07:51 Pulse 67 08/08/21 07:51 Resp 18 08/08/21 07:51 BP 138/69 08/08/21 07:51 Pulse Ox 99 08/08/21 07:51 Body Mass Index 32.5 Const General: cooperative and no acute distress HENCT Other: Unremarkable Neck Neck: Yes normal visual inspection Chest Chest palpation & inspection: normal inspection of the chest Resp Auscultation: clear to auscultation bilaterally, no crackles and no wheezes Cardio Jugular venous distension: no JVD Palpation: normal PMI Heart sounds: S1 normal heart sound present, S2 normal heart sound present, no gallops, no murmurs and no rubs GI Palpation (GI): Soft to palpation Back/Spine/Pelvis Other: unremarkable Skin General skin exam: no rashes or lesions noted Neuro Cranial nerves: Yes Other cranial nerve findings present Extrem General: Yes no clubbing, cyanosis or edema Psych Mental Status: other Results Labs and Meds Result diagrams: 08/06/21 04:10 08/06/21 04:10 Lab results: Laboratory Results - last 24 hr 08/07/21 08/07/21 08/07/21 10:51 16:19 20:01 POC Glucose 194 H 136 H 139 H 08/08/21 07:21 POC Glucose 119 H Progress Note: A&P Assessment and plan (1) Hypertensive urgency: Status: Acute (2) Nonischemic cardiomyopathy: Status: Acute (3) NSTEMI (non-ST elevated myocardial infarction): Status: Acute Assessment and Plan: Difficult to manage BP with high and low readings at different times and numrous adjustments of BP meds over months/years. At the present time, on Coreg only. Per note yesterday, may start Losartan/Aldactone at noon today. Renal duplex pending today. Will follow. Fall Risk Details Current Medications: Current Medications Acetaminophen (Acetaminophen 325 Mg Tablet) 650 mg PO Q6H PRN PRN Reason: Pain, Mild (Pain Scale 1-3) Last Admin: 08/08/21 03:36 Dose: 650 mg Documented by: Al Hydroxide/Mg Hydroxide (Magnesium Hydrox/Alum Hydrox 30 Ml Oral.Susp) 10 ml PO ONCE PRN PRN Reason: Stomach Upset Alprazolam (Alprazolam 0.5 Mg Tablet) 0.5 mg PO BID PRN PRN Reason: Anxiety Last Admin: 08/07/21 20:31 Dose: 0.5 mg Documented by: Atorvastatin Calcium (Atorvastatin Calcium 80 Mg Tablet) 80 mg PO DAILY [facility] Last Admin: 08/07/21 10:01 Dose: 80 mg Documented by: Buspirone HCl (Buspirone Hcl 5 Mg Tablet) 7.5 mg PO DAILY [facility] Last Admin: 08/07/21 10:02 Dose: 7.5 mg Documented by: Carvedilol (Carvedilol 6.25 Mg Tablet) 6.25 mg PO BID [facility]; Protocol Last Admin: 08/07/21 20:26 Dose: 6.25 mg Documented by: Dextrose (Dextrose 50 % 25 Gm/50 Ml Vial) 25 gm IVPUSH Q15M PRN; Protocol PRN Reason: per Hypoglycemia Standing Ord. Enoxaparin Sodium (Enoxaparin Sodium 30 Mg/0.3 Ml Syringe) 30 mg SUBCUT Q24H [facility] Last Admin: 08/08/21 05:15 Dose: 30 mg Documented by: Furosemide (Furosemide 20 Mg Tablet) 20 mg PO DAILY [facility]; Protocol Last Admin: 08/07/21 10:01 Dose: 20 mg Documented by: Glucose (Glucose Gel 15 Gm Gel..Gram.) 15 gm PO Q15M PRN; Protocol PRN Reason: per Hypoglycemia Standing Ord. Insulin Human Lispro (Insulin Lispro 100 Unit/Ml 3 Ml Vial) 0 unit SUBCUT QIDACHS [facility]; Protocol Last Admin: 08/08/21 07:37 Dose: Not Given Documented by: Melatonin (Melatonin 3 Mg Tablet) 6 mg PO BEDTIME PRN PRN Reason: Insomnia Morphine Sulfate (Morphine Sulfate 2 Mg/Ml Cartridge) 1 mg IVPUSH Q4H PRN; Protocol PRN Reason: Chest Pain Multivitamins/Vitamin C (Multivitamin Tablet) 1 tab PO DAILY [facility] Last Admin: 08/07/21 10:01 Dose: 1 tab Documented by: Omeprazole (Omeprazole 20 Mg Capsule.) 20 mg PO DAILY@0630 [facility] Last Admin: 08/08/21 05:15 Dose: 20 mg Documented by: Senna (Sennosides 8.6 Mg Tablet) 17.2 mg PO BEDTIME PRN PRN Reason: Constipation Sodium Chloride (0.9 % Sodium Chloride Flush 3 Ml Syringe) 3 ml IVFLUSH QSHIFT [facility] Last Admin: 08/07/21 20:31 Dose: 3 ml Documented by: Vitamin D (Cholecalciferol (Vitamin D3) 25 Mcg Tablet) 25 mcg PO DAILY [facility] Last Admin: 08/07/21 10:02 Dose: 25 mcg Documented by: Time Spent With Patient Time: Total time spent is greater than 50% in coordination of care (as documented) at patient's floor/unit and/or counseling patient: Time with patient: less than 15 minutes Progress Note: Quality Stroke Does the patient have a stroke diagnosis?: No Procedures Date of Service Date of Service: 08/08/21
[2021-08-08] MEDS: 0.9 % Sodium Chloride Flush 3 ML SYRINGE IVFLUSH ×3 (10:53→20:57)
[2021-08-08] MEDS: Cholecalciferol (Vitamin D3) 25 MCG TABLET PO (10:53)
[2021-08-08] MEDS: busPIRone HCl 5 MG TABLET 7.5 MG PO (10:54)
[2021-08-08] MEDS: Furosemide 20 MG TABLET PO (10:54)
[2021-08-08] MEDS: Atorvastatin Calcium 80 MG TABLET PO (10:56)
[2021-08-08] MEDS: Multivitamin TABLET 1 TAB PO (10:57)
[2021-08-08] MEDS: carvediloL 6.25 MG TABLET PO ×2 (10:57→22:23)
[2021-08-08 11:07] LABS: Glucose, Whole Blood 136 mg/dL (60-115)
[2021-08-08] MEDS: ALPRAZolam 0.5 MG TABLET PO ×2 (12:22→22:23)
--- NOTE | 2021-08-08 12:48 | MHC.CM.PN ---
per rounds dc plan remains home with resumptio n of campaign specialist servceis no anticapted dc date at this time
--- NOTE | 2021-08-08 14:54 | MHC.CM.PN ---
pt dcd home with no skilled servceis ordered by
[2021-08-08] MEDS: Spironolactone 25 MG TABLET PO (15:20)
[2021-08-08] MEDS: Losartan Potassium 50 MG TABLET PO (15:21)
[2021-08-08 16:18] LABS: Glucose, Whole Blood 202 mg/dL (60-115)
--- NOTE | 2021-08-08 16:40 | HO.PM.IMPN ---
Subjective Subjective Date of Service: 08/08/21 Interval History: Seen in f/u for HTN urgency, chest pain. BP now swinging in the other direction. She has no chest pain, says she doesn't feel good Review of Systems Gen:?no fever Resp:?no sob, no cough CV:?no chest, no ADRIAN, no leg edema GI:?No n/v, no abd pain Neuro:?No confusion Physical Exam Vital Signs: Vital Signs: Last Vital Signs Temp 97.3 F 08/08/21 14:57 Pulse 80 08/08/21 14:57 Resp 20 08/08/21 14:57 BP 115/63 08/08/21 15:21 Pulse Ox 96 08/08/21 14:57 Body Mass Index 32.5 Const: Other: General: AO X 3, no acute distress Resp: CTA bilateral CVS: S1,S2,RRR GI: +BS, NT, no distention Skin: No rash Neuro: motor grossly intact Psych: appropriate affect Objective Data Active Medications Acetaminophen (Acetaminophen 325 Mg Tablet) 650 mg PO Q6H PRN PRN Reason: Pain, Mild (Pain Scale 1-3) Last Admin: 08/08/21 03:36 Dose: 650 mg Documented by: FEDERICO Al Hydroxide/Mg Hydroxide (Magnesium Hydrox/Alum Hydrox 30 Ml Oral.Susp) 10 ml PO ONCE PRN PRN Reason: Stomach Upset Alprazolam (Alprazolam 0.5 Mg Tablet) 0.5 mg PO BID PRN PRN Reason: Anxiety Last Admin: 08/08/21 12:22 Dose: 0.5 mg Documented by: GARCÍA Atorvastatin Calcium (Atorvastatin Calcium 80 Mg Tablet) 80 mg PO DAILY [facility] Last Admin: 08/08/21 10:56 Dose: 80 mg Documented by: GARCÍA Buspirone HCl (Buspirone Hcl 5 Mg Tablet) 7.5 mg PO DAILY [facility] Last Admin: 08/08/21 10:54 Dose: 7.5 mg Documented by: GARCÍA Carvedilol (Carvedilol 6.25 Mg Tablet) 6.25 mg PO BID [facility]; Protocol Last Admin: 08/08/21 10:57 Dose: 6.25 mg Documented by: GARCÍA Dextrose (Dextrose 50 % 25 Gm/50 Ml Vial) 25 gm IVPUSH Q15M PRN; Protocol PRN Reason: per Hypoglycemia Standing Ord. Enoxaparin Sodium (Enoxaparin Sodium 30 Mg/0.3 Ml Syringe) 30 mg SUBCUT Q24H [facility] Last Admin: 08/08/21 05:15 Dose: 30 mg Documented by: FEDERICO Furosemide (Furosemide 20 Mg Tablet) 20 mg PO DAILY [facility]; Protocol Last Admin: 08/08/21 10:54 Dose: 20 mg Documented by: GARCÍA Glucose (Glucose Gel 15 Gm Gel..Gram.) 15 gm PO Q15M PRN; Protocol PRN Reason: per Hypoglycemia Standing Ord. Insulin Human Lispro (Insulin Lispro 100 Unit/Ml 3 Ml Vial) 0 unit SUBCUT QIDACHS [facility]; Protocol Last Admin: 08/08/21 11:05 Dose: Not Given Documented by: GARCAÍ Non-Admin Reason: No Insulin Coverage Losartan Potassium (Losartan Potassium 50 Mg Tablet) 50 mg PO DAILY [facility]; Protocol Last Admin: 08/08/21 15:21 Dose: 50 mg Documented by: GARCÍA Melatonin (Melatonin 3 Mg Tablet) 6 mg PO BEDTIME PRN PRN Reason: Insomnia Morphine Sulfate (Morphine Sulfate 2 Mg/Ml Cartridge) 1 mg IVPUSH Q4H PRN; Protocol PRN Reason: Chest Pain Multivitamins/Vitamin C (Multivitamin Tablet) 1 tab PO DAILY [facility] Last Admin: 08/08/21 10:57 Dose: 1 tab Documented by: GARCÍA Omeprazole (Omeprazole 20 Mg Capsule.Dr) 20 mg PO DAILY@0630 [facility] Last Admin: 08/08/21 05:15 Dose: 20 mg Documented by: FEDERICO Senna (Sennosides 8.6 Mg Tablet) 17.2 mg PO BEDTIME PRN PRN Reason: Constipation Sodium Chloride (0.9 % Sodium Chloride Flush 3 Ml Syringe) 3 ml IVFLUSH QSHIFT [facility] Last Admin: 08/08/21 10:53 Dose: 3 ml Documented by: GARCÍA Vitamin D (Cholecalciferol (Vitamin D3) 25 Mcg Tablet) 25 mcg PO DAILY [facility] Last Admin: 08/08/21 10:53 Dose: 25 mcg Documented by: GARCÍA Labs CBC & Chem 7: 08/06/21 04:10 08/06/21 04:10 Labs: Laboratory Results - last 24 hr 08/07/21 08/08/21 08/08/21 20:01 07:21 10:59 POC Glucose 139 H 119 H 136 H 08/08/21 16:15 POC Glucose 202 H Assessment and Plan (1) Hypertensive urgency: Status: Acute (2) Elevated troponin: Status: Acute (3) 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: Status: Acute Assessment and Plan: ?69-year-old female with a past medical history of hypertension, hyperlipidemia, diabetes, CHF with EF of 43%; anxiety, depression presented to the hospital with a chief complaint of headaches/chest discomfort Chest pain: mild increase in troponin, no ECG changes. pain resolved and trop peaked and trended. Likly related to High BP cardiology advised adddressing underlying HTN. Chronic systolic heart failure, stable with no decompensatio Echo 08/06 EF 40 to 45 Continue coreg, Lasix, Losartan on hold today d/t low BP . Hypertension--with labile BP, now on low side. Restart Losartan, and Aldactone has history of HARRIET, doppler US no signficant stenosis. Diabetes:? Insulin sliding scale.? Hold metformin. CKD:? Creatinine baseline 1.7 . Quality Stroke Does the patient have a stroke diagnosis?: No VTE Prior VTE?: No VTE Risk Level:: Medical - moderate - high VTE Device Contraindication: Treatment Not Indicated VTE Drug Contraindication: N/A - Med Ordered
[2021-08-08] MEDS: Insulin Lispro 100 UNIT/ML 3 ML VIAL SUBCUT ×2 (16:42→20:57)
[2021-08-08 20:05] LABS: Glucose, Whole Blood 163 mg/dL (60-115)
[2021-08-09 03:05] VITALS: BP 116/57; PULSE 64; RESP 18; TEMP 36.2; O2SAT 95
[2021-08-09] MEDS: Omeprazole 20 MG CAPSULE.DR PO (05:37)
[2021-08-09] MEDS: Enoxaparin Sodium 30 MG/0.3 ML SYRINGE SUBCUT (05:38)
[2021-08-09 06:53] VITALS: BP 122/69; PULSE 72; RESP 19; TEMP 36.1; O2SAT 98
[2021-08-09 07:15] LABS: Glucose, Whole Blood 122 mg/dL (60-115)
--- NOTE | 2021-08-09 08:43 | MHC.CM.PN ---
pt dcd today with no skilled servceis ordered by
[2021-08-09] MEDS: Furosemide 20 MG TABLET PO (08:56)
[2021-08-09] MEDS: busPIRone HCl 5 MG TABLET 7.5 MG PO (08:56)
[2021-08-09] MEDS: Atorvastatin Calcium 80 MG TABLET PO (08:56)
[2021-08-09] MEDS: Multivitamin TABLET 1 TAB PO (08:56)
[2021-08-09 08:57] VITALS: BP 122/69; PULSE 72
[2021-08-09] MEDS: Cholecalciferol (Vitamin D3) 25 MCG TABLET PO (08:57)
[2021-08-09] MEDS: carvediloL 6.25 MG TABLET PO (08:57)
[2021-08-09] MEDS: Losartan Potassium 50 MG TABLET PO (08:57)
[2021-08-09] MEDS: ALPRAZolam 0.5 MG TABLET PO (09:01)
--- NOTE | 2021-08-09 12:53 | PM.DS ---
DS: Providers Provider Date of Service: 08/09/21 Date of admission: 08/06/21 02:21 Primary care physician: Unknown Physician Consults: 08/06/21 02:20 Consult to Cardiology Routine Consulting Provider: Nick Rivera Reason for consultation: chest pain; high trops DS: Diagnosis Discharge Diagnosis (1) Hypertensive urgency: Status: Acute (2) Elevated troponin: Status: Acute (3) 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: Status: Acute DS: Summary Hospital Course Hospital Course: Chief Complaint: Chest pain 69-year-old female with a past medical history of hypertension, hyperlipidemia, diabetes, CHF with EF of 43%; anxiety, depression presented to the hospital with a chief complaint of headaches. Patient reported that initially prior with headache subsequently also noted hand pain, pressure sensation associated nausea and right-sided chest pain.? Sharp in nature.? Nonradiating.? S decided to come to the ER for further evaluation. Patient denies any fever chills cough. Patient denies any recent travel or sick contacts. Review of all other systems is negative except mentioned above ER course: Per ER team patient's EKG showed LBBB, unchanged from prior; troponins indeterminate; chest pain improving.? Admitted to rule out ACS. Hospital course: patient was admitted due to elevated cardiac troponin and elevated blood pressure. The increase in troponin was thought to be due to uncontroolled blood pressure, there was no ischemic changes on ECG. The goal was to controlled her blood pressure. Blood pressure medication were adjusted with addition of Aldactone 25 daily and losartan increased to 50 bid, this however resulted in low blood pressure and concern was raised about possible issue with renal artery stenosis from the past. An ultrasound was repeated and showed no hemodynamic significant stenosis of renal artery. Will therefore continue blood pressure control with meds with addition of aldactone to be stagered with other BP meds and follow up with PCP on outatient basis. Time Spent with Patient Time attestation: Total time spent providing and/or coordinating discharge services: Discharge coordination time: Greater than 30 minutes Quality: Stroke Does the patient have a stroke diagnosis?: No Physical Exam Vital Signs: Vital Signs: Last Vital Signs Selected Entries 08/09/21 06:53 Temperature 97 F Pulse Rate 72 Respiratory Rate 19 Blood Pressure 122/69 Pulse Oximetry 98 Oxygen Delivery Me thod Room Air Body Mass Index 32.5 General: AO X 3, no acute distress Resp: CTA bilateral CVS: S1,S2,RRR GI: +BS, NT, no distention Skin: No rash Neuro: motor grossly intact Psych: appropriate affect DS: Data Data Completed and Pending Labs on day of discharge: Laboratory Results - last 24 hr 08/07/21 08/07/21 08/08/21 16:19 20:01 07:21 POC Glucose 136 H 139 H 119 H 08/08/21 10:59 POC Glucose 136 H Discharge Plan Discharge Anticipated Discharge Date/Time: 08/09/21 07:22 Patient Disposition: Home, Self-Care Discharge Diagnosis: NSTEMI, uncontrolled HTN Referrals: Boaz Astorga MD [Primary Care Provider] - 08/19/21 10:30 am (You have an appointment with Dr. Astorga on August 19 at 10:30 am. ) Discharge Medications: New spironolactone [Aldactone] 25 mg tablet 25 mg PO BEDTIME Qty: 30 RF: 0 Continued sennosides 8.6 mg tablet 17.2 mg PO DAILY PRN (Reason: constipation) 30 Days Qty: 60 RF: 1 rosuvastatin 40 mg tablet 40 mg PO DAILY Qty: 90 RF: 1 Januvia 100 mg tablet 100 mg PO DAILY Qty: 90 RF: 0 OneTouch Ultra Test Strip 1 strip miscellaneous QID Qty: 100 RF: 3 carvedilol 6.25 mg tablet 6.25 mg PO BID Qty: 180 RF: 0 lancets [OneTouch Delica Plus Lancet] 33 gauge misc 33 gauge topical QID Qty: 200 RF: 0 clotrimazole-betamethasone 1-0.05 % cream 1 appl topical BID PRN (Reason: rash) Qty: 30 RF: 0 ciclopirox 0.77 % cream 1 applic topical BID RF: 0 cholecalciferol (vitamin D3) [Vitamin D3] 25 mcg (1,000 unit) Tablet 25 mcg PO DAILY RF: 0 nystatin 100,000 unit/gram Powder 1 appl TOPICAL BID RF: 0 Systane Balance 0.6 % Drops 1 drp OPHTHALMIC (EYE) BID PRN (Reason: Dry Eye(S)) RF: 0 buspirone 7.5 mg tablet 7.5 mg PO DAILY RF: 0 alprazolam 0.5 mg tablet 0.5 mg PO BID PRN (Reason: Anxiety) RF: 0 acetaminophen [Tylenol Extra Strength] 500 mg tablet 500 mg PO .TWICE A DAY PRN (Reason: Pain) RF: 0 alum-mag hydroxide-simeth 200-200-20 mg/5 mL suspension 10 ml PO ONCE PRN (Reason: Stomach Upset) RF: 0 multivitamin Tablet 1 tab PO DAILY RF: 0 pantoprazole 40 mg tablet,delayed release (DR/EC) 40 mg PO DAILY Qty: 90 RF: 3 metformin 500 mg tablet 500 mg PO BID RF: 0 furosemide [Lasix] 20 mg tablet 20 mg PO DAILY Qty: 90 RF: 4 losartan 100 mg tablet 50 mg PO DAILY RF: 0 No Action bacitracin zinc-polymyxin B [Double Antibiotic (b.tracn Zn)] 500-10,000 unit/gram ointment 1 appl topical Q8H Qty: 28.4 RF: 3 Discharge Orders: Discharge Order (Routine); Ordered 08/08/21 Ordered By: Davy Bright Diet: advance to usual diet and diabetic diet Activity on Discharge: As tolerated Stand Alone Forms: Patient Portal Discharge page Care Plan Goals: prevent rehospitalization and control of blood pressure Health Concerns: Uncontrolled HTN Plan of Treatment: Take all your blood pressure medication as recommended, follow up with your Doctor in a week, call for appointment Assessment: as above Discharge Date/Time: 08/09/21 09:54
== END 2021-08-09 09:54 | disposition home or self-care (01) ==
LOC: HO.ED 08-06 02:24 → HO.EDOVER 08-06 03:12 → HO.IMC 08-06 19:49
PROVIDERS: Admitting Provider Hospitalist; Emergency Provider Student in an Organized Health Care Education/Training Program; PCP Internal Medicine; Visit Provider Internal Medicine
DX: R77.8 Other specified abnormalities of plasma proteins (principal); R07.9 Chest pain, unspecified; I21.4 Non-ST elevation (NSTEMI) myocardial infarction; I24.9 Acute ischemic heart disease, unspecified; I16.0 Hypertensive urgency; R51.9 Headache, unspecified; I42.9 Cardiomyopathy, unspecified; N28.1 Cyst of kidney, acquired; E66.9 Obesity, unspecified; E11.9 Type 2 diabetes mellitus without complications; E78.00 Pure hypercholesterolemia, unspecified; E78.5 Hyperlipidemia, unspecified; F41.8 Other specified anxiety disorders; Z20.822 Contact with and (suspected) exposure to COVID-19; Z88.6 Allergy status to analgesic agent; Z88.1 Allergy status to other antibiotic agents; Z88.0 Allergy status to penicillin; Z88.8 Allergy status to other drugs, medicaments and biological substances; Z91.09 Other allergy status, other than to drugs and biological substances; Z79.84 Long term (current) use of oral hypoglycemic drugs; Z79.899 Other long term (current) drug therapy
CPT/HCPCS: 36415; 76775; 80048; 80053; 81001; 82947; 83880; 84484; 85025; 85610; 87086; 87635; 93005; 93308; 93975; 96372; 96374; 96375; 99219; 99285; J1650

== ENCOUNTER → 2021-08-31 12:36 | Outpatient (BNVA) | payer OTHER, SELFPAY | PROVIDERS: PCP Internal Medicine; Referring Provider Internal Medicine; Visit Provider Internal Medicine | DX: I42.8 Other cardiomyopathies (principal); I44.7 Left bundle-branch block, unspecified; I10 Essential (primary) hypertension; R21 Rash and other nonspecific skin eruption | CPT/HCPCS: 99212 ==

== ENCOUNTER 2021-11-10 07:39 | Outpatient (REF) | payer OTHER, SELFPAY ==
[2021-11-10 08:14] LABS: MANUAL DIFF FLAG NO
[2021-11-10 08:37] LABS: Basophils Percent Auto 0.6 % (0-2); Eosinophils Absolute Auto 0.1 X10*3/uL (0.0-0.4); Eosinophils Percent Auto 1.3 % (0-4); Hematocrit 33.9 % (37.0-47.0); Hemoglobin 10.9 g/dl (12.0-16.0); Imm Gran Abs Auto 0.04 X10*3/uL (0.00-0.03); Imm Gran Pct Auto 0.6 % (0.0-0.4); Lymphocytes Absolute Auto 1.7 X10*3/uL (1.2-4.9); Lymphocytes Percent Auto 23.2 % (20-40); Mean Corpuscular HGB Conc 32.2 g/dl (31.0-35.0); Mean Corpuscular Hemoglobin 29.1 pg (27.0-33.0); Mean Corpuscular Volume 90.6 fL (80.0-98.0); Mean Platelet Volume 11.4 fL (9.4-12.3); Monocytes Absolute Auto 0.8 X10*3/uL (0.1-1.2); Neutrophils Absolute Auto 4.6 x10*3/uL (2.0-8.3); Neutrophils Percent Auto 63.3 % (45-73); Platelet Count 237 X10*3/uL (160-400); Red Blood Count 3.74 X10*6/uL (4.20-5.50); Red Cell Distribution Width 15.1 % (11.0-16.0); White Blood Count 7.2 X10*3/uL (4.8-10.8)
[2021-11-10 08:57] LABS: Estimated Average Glucose 160 mg/dL; Hemoglobin A1c % 7.2 %
[2021-11-10 09:02] LABS: Alanine Aminotransferase 20 U/L (0-31); Albumin Level 4.5 g/dL (3.5-5.0); Alkaline Phosphatase 101 U/L (39-117); Anion Gap 16 (12-20); Aspartate Amino Transferase 23 U/L (5-31); Blood Urea Nitrogen 48 mg/dL (9-16); Calcium 10.4 mg/dL (8.4-10.2); Carbon Dioxide 26 mmol/L (22-29); Chloride 98 mmol/L (96-108); Cholesterol 127 mg/dL; Estimated Glomerular Filt Rate 23; Glucose Fasting 96 mg/dL (60-99); HDL Cholesterol 53 mg/dL; LDL Cholesterol Calculated 61 mg/dl; Potassium 5.3 mmol/L (3.3-5.1); Sodium 135 mmol/L (135-145); Total Protein 8.1 g/dL (6.5-8.0); Triglycerides 65 mg/dL
[2021-11-10 09:02] LABS: Appearance Urine CLEAR; Color Urine STRAW; Glucose Urine UA NEG (NEG); Leukocyte Esterase Urine 2+ (NEG); Nitrite Urine NEG (NEG); UACC Culture Trigger YES; Urine Blood 1+ (NEG); Urine Ketones NEG (NEG); Urine Protein TRACE MG/DL (NEG-TRACE)
[2021-11-10 09:06] LABS: B Type Natriuretic Peptide 32 pg/mL (<100)
[2021-11-10 09:12] LABS: Squamous Epithelial Cell Urine TRACE /LPF; WBC Clumps Urine NOTED
[2021-11-10 09:13] LABS: Bacteria Urine TRACE /LPF; RBC Urine 0 /HPF (0)
[2021-11-10 09:23] LABS: TSH reflex Free T4 5.33 uIU/mL (0.32-4.0); Vitamin D 25-OH Total 36.8 ng/mL (>30)
[2021-11-10 10:06] LABS: Free T4 (Free Thyroxine) 1.07 ng/dL (0.71-1.85)
== END 2021-11-10 07:40 | disposition home or self-care (01) ==
LOC: HO.LAB 07:39
PROVIDERS: PCP Internal Medicine; Visit Provider Internal Medicine
DX: I42.9 Cardiomyopathy, unspecified (principal); E55.9 Vitamin D deficiency, unspecified; I10 Essential (primary) hypertension; E78.00 Pure hypercholesterolemia, unspecified; E11.9 Type 2 diabetes mellitus without complications
CPT/HCPCS: 36415; 80053; 80061; 81001; 81003; 82306; 83036; 83880; 84439; 84443; 85025; 87086

== ENCOUNTER → 2021-12-06 10:17 | Outpatient (BNVA) | payer OTHER, SELFPAY | PROVIDERS: PCP Internal Medicine; Referring Provider Internal Medicine; Visit Provider Nurse Practitioner Family | DX: K59.04 Chronic idiopathic constipation (principal); K21.9 Gastro-esophageal reflux disease without esophagitis; Z79.899 Other long term (current) drug therapy | CPT/HCPCS: 99212 ==

== ENCOUNTER → 2021-12-20 10:34 | Outpatient (BNVA) | payer OTHER, SELFPAY | PROVIDERS: PCP Internal Medicine; Referring Provider Internal Medicine; Visit Provider Internal Medicine | DX: I42.8 Other cardiomyopathies (principal); I44.7 Left bundle-branch block, unspecified; I10 Essential (primary) hypertension | CPT/HCPCS: 99212 ==

== ENCOUNTER 2022-01-04 11:26 | Outpatient (REF) | payer OTHER, SELFPAY ==
[2022-01-04 12:41] LABS: Anion Gap 15 (12-20); Blood Urea Nitrogen 42 mg/dL (9-16); Calcium 10.5 mg/dL (8.4-10.2); Carbon Dioxide 23 mmol/L (22-29); Chloride 100 mmol/L (96-108); Estimated Glomerular Filt Rate 24; Potassium 5.3 mmol/L (3.3-5.1); Sodium 133 mmol/L (135-145)
== END 2022-01-04 11:27 | disposition home or self-care (01) ==
LOC: HO.LAB 11:26
PROVIDERS: PCP Internal Medicine; Visit Provider Internal Medicine Nephrology
DX: I12.9 Hypertensive chronic kidney disease with stage 1 through stage 4 chronic kidney disease, or unspecified chronic kidney disease (principal); N18.31 Chronic kidney disease, stage 3a; I70.1 Atherosclerosis of renal artery
CPT/HCPCS: 36415; 80051; 82310; 82565; 84520

== ENCOUNTER 2022-02-13 07:47 | Outpatient (REF) | payer OTHER, SELFPAY ==
[2022-02-13 08:20] LABS: MANUAL DIFF FLAG NO
[2022-02-13 08:49] LABS: Basophils Percent Auto 0.5 % (0-2); Eosinophils Absolute Auto 0.1 X10*3/uL (0.0-0.4); Eosinophils Percent Auto 1.2 % (0-4); Hematocrit 31.5 % (37.0-47.0); Hemoglobin 10.1 g/dl (12.0-16.0); Imm Gran Abs Auto 0.03 X10*3/uL (0.00-0.03); Imm Gran Pct Auto 0.5 % (0.0-0.4); Lymphocytes Absolute Auto 1.3 X10*3/uL (1.2-4.9); Mean Corpuscular HGB Conc 32.1 g/dl (31.0-35.0); Mean Corpuscular Volume 90.5 fL (80.0-98.0); Mean Platelet Volume 11.1 fL (9.4-12.3); Monocytes Absolute Auto 0.8 X10*3/uL (0.1-1.2); Monocytes Percent Auto 12.3 % (2-11); Neutrophils Absolute Auto 4.4 x10*3/uL (2.0-8.3); Neutrophils Percent Auto 65.5 % (45-73); Platelet Count 291 X10*3/uL (160-400); Red Blood Count 3.48 X10*6/uL (4.20-5.50); White Blood Count 6.6 X10*3/uL (4.8-10.8)
[2022-02-13 08:53] LABS: Estimated Average Glucose 160 mg/dL; Hemoglobin A1c % 7.2 %
[2022-02-13 09:20] LABS: Appearance Urine CLEAR; Color Urine YELLOW; Glucose Urine UA NEG (NEG); Leukocyte Esterase Urine TRACE (NEG); Nitrite Urine NEG (NEG); PH 6.5 (5.0-8.0); Specific Gravity - Urine <= 1.005 (1.005-1.025); UACC Culture Trigger NO; Urine Blood TRACE (NEG); Urine Ketones NEG (NEG); Urine Protein NEG (NEG-TRACE)
[2022-02-13 09:28] LABS: Alanine Aminotransferase 20 U/L (0-31); Albumin Level 4.4 g/dL (3.5-5.0); Alkaline Phosphatase 85 U/L (39-117); Anion Gap 14 (12-20); Aspartate Amino Transferase 22 U/L (5-31); Blood Urea Nitrogen 32 mg/dL (9-16); Carbon Dioxide 24 mmol/L (22-29); Chloride 102 mmol/L (96-108); Cholesterol 135 mg/dL; Estimated Glomerular Filt Rate 29; Glucose Fasting 101 mg/dL (60-99); HDL Cholesterol 60 mg/dL; LDL Cholesterol Calculated 65 mg/dl; Potassium 5.1 mmol/L (3.3-5.1); Sodium 135 mmol/L (135-145); Total Protein 7.5 g/dL (6.5-8.0); Triglycerides 53 mg/dL
[2022-02-13 09:37] LABS: Creatinine Urine 33.89 mg/dL; Microalbum/Creatinine Ratio Ur 70.8 ug/mg cr
[2022-02-13 09:49] LABS: TSH reflex Free T4 5.99 uIU/mL (0.32-4.0); Vitamin D 25-OH Total 31.1 ng/mL (>30)
[2022-02-13 10:07] LABS: Squamous Epithelial Cell Urine 1+ /LPF
[2022-02-13 10:10] LABS: RBC Urine 0 /HPF (0); UACC CULT YES
[2022-02-13 10:23] LABS: Free T4 (Free Thyroxine) 0.96 ng/dL (0.71-1.85)
== END 2022-02-13 07:48 | disposition home or self-care (01) ==
LOC: HO.LAB 07:47
PROVIDERS: Absent Provider Internal Medicine Nephrology; PCP Internal Medicine; Visit Provider Internal Medicine
DX: I12.9 Hypertensive chronic kidney disease with stage 1 through stage 4 chronic kidney disease, or unspecified chronic kidney disease (principal); N18.31 Chronic kidney disease, stage 3a; E11.22 Type 2 diabetes mellitus with diabetic chronic kidney disease; E87.5 Hyperkalemia; I70.1 Atherosclerosis of renal artery; E55.9 Vitamin D deficiency, unspecified; E78.00 Pure hypercholesterolemia, unspecified
CPT/HCPCS: 36415; 80053; 80061; 81001; 82043; 82306; 83036; 84439; 84443; 85025; 87086

== ENCOUNTER 2022-06-15 07:30 | Outpatient (REF) | payer OTHER, SELFPAY ==
[2022-06-15 07:43] LABS: MANUAL DIFF FLAG NO
[2022-06-15 08:16] LABS: Basophils Percent Auto 0.6 % (0-2); Eosinophils Absolute Auto 0.1 X10*3/uL (0.0-0.4); Eosinophils Percent Auto 1.9 % (0-4); Hematocrit 30.8 % (37.0-47.0); Hemoglobin 9.9 g/dl (12.0-16.0); Imm Gran Abs Auto 0.02 X10*3/uL (0.00-0.03); Imm Gran Pct Auto 0.3 % (0.0-0.4); Lymphocytes Absolute Auto 1.3 X10*3/uL (1.2-4.9); Lymphocytes Percent Auto 20.6 % (20-40); Mean Corpuscular HGB Conc 32.1 g/dl (31.0-35.0); Mean Corpuscular Hemoglobin 28.4 pg (27.0-33.0); Mean Corpuscular Volume 88.5 fL (80.0-98.0); Mean Platelet Volume 11.3 fL (9.4-12.3); Monocytes Absolute Auto 0.6 X10*3/uL (0.1-1.2); Monocytes Percent Auto 10.2 % (2-11); Neutrophils Absolute Auto 4.2 x10*3/uL (2.0-8.3); Neutrophils Percent Auto 66.4 % (45-73); Platelet Count 321 X10*3/uL (160-400); Red Blood Count 3.48 X10*6/uL (4.20-5.50); Red Cell Distribution Width 14.6 % (11.0-16.0); White Blood Count 6.3 X10*3/uL (4.8-10.8)
[2022-06-15 08:20] LABS: Estimated Average Glucose 160 mg/dL; Hemoglobin A1c % 7.2 %
[2022-06-15 08:38] LABS: Alanine Aminotransferase 14 U/L (0-31); Albumin Level 4.5 g/dL (3.5-5.0); Alkaline Phosphatase 102 U/L (39-117); Anion Gap 15 (12-20); Aspartate Amino Transferase 19 U/L (5-31); Bilirubin Total 0.9 mg/dL (0.0-1.0); Blood Urea Nitrogen 30 mg/dL (9-16); Calcium 9.9 mg/dL (8.4-10.2); Carbon Dioxide 25 mmol/L (22-29); Chloride 99 mmol/L (96-108); Cholesterol 127 mg/dL; Estimated Glomerular Filt Rate 23; Glucose Fasting 106 mg/dL (60-99); HDL Cholesterol 52 mg/dL; LDL Cholesterol Calculated 58 mg/dl; Potassium 5.2 mmol/L (3.3-5.1); Sodium 134 mmol/L (135-145); Total Protein 7.7 g/dL (6.5-8.0); Triglycerides 85 mg/dL
[2022-06-15 09:00] LABS: Free T4 (Free Thyroxine) 0.97 ng/dL (0.71-1.85); Thyroid Stimulating Hormone 4.71 uIU/mL (0.32-4.0); Vitamin D 25-OH Total 33.9 ng/mL (>30)
[2022-06-15 10:35] LABS: Appearance Urine Clear; Color Urine Yellow; Glucose Urine UA Negative (Negative); Leukocyte Esterase Urine Trace (Negative); Nitrite Urine Negative (Negative); Urine Blood Negative (Negative); Urine Ketones Negative (Negative); Urine Protein Trace mg/dL (Neg-Trace)
[2022-06-15 10:43] LABS: Bacteria Urine None Seen (None Seen); Hyaline Casts Urine 0-2 /LPF (0-2); RBC Urine 0-2 /HPF (0-2); Squamous Epithelial Cell Urine 0-2 /HPF (0-2); WBC Urine 0-5 /HPF (0-5)
[2022-06-15 11:18] LABS: Creatinine Urine 76.24 mg/dL; Microalbum/Creatinine Ratio Ur 52.4 ug/mg cr
[2022-06-16 21:47] LABS: Thyroid Peroxidase Antibodies 193 IU/mL (<9)
[2022-06-20 09:52] LABS: Triiodothyronine T3 Reverse 21 ng/dL (8-25)
== END 2022-06-15 07:31 | disposition home or self-care (01) ==
LOC: HO.LAB 07:30
PROVIDERS: PCP Internal Medicine; Visit Provider Internal Medicine
DX: E11.9 Type 2 diabetes mellitus without complications (principal); R79.89 Other specified abnormal findings of blood chemistry; I10 Essential (primary) hypertension; E55.9 Vitamin D deficiency, unspecified; E78.00 Pure hypercholesterolemia, unspecified
CPT/HCPCS: 36415; 80053; 80061; 81001; 82043; 82306; 83036; 84439; 84443; 84482; 85025; 86376

== ENCOUNTER → 2022-06-22 10:11 | Outpatient (BNVA) | payer OTHER, SELFPAY | PROVIDERS: PCP Internal Medicine; Referring Provider Internal Medicine; Visit Provider Nurse Practitioner Family | DX: K21.9 Gastro-esophageal reflux disease without esophagitis (principal); K59.01 Slow transit constipation | CPT/HCPCS: 99212 ==

== ENCOUNTER → 2022-07-03 09:45 | Outpatient (BNVA) | payer OTHER, SELFPAY | PROVIDERS: PCP Internal Medicine; Referring Provider Internal Medicine; Visit Provider Internal Medicine | DX: I42.8 Other cardiomyopathies (principal); I44.7 Left bundle-branch block, unspecified; I10 Essential (primary) hypertension | CPT/HCPCS: 93005; 99212 ==

== ENCOUNTER 2022-08-10 10:30 | Outpatient (REF) | payer OTHER, SELFPAY ==
[2022-08-10 12:31] LABS: Anion Gap 18 (12-20); Blood Urea Nitrogen 27 mg/dL (9-16); Calcium 10.1 mg/dL (8.4-10.2); Carbon Dioxide 22 mmol/L (22-29); Chloride 100 mmol/L (96-108); Estimated Glomerular Filt Rate 24; Potassium 5.5 mmol/L (3.3-5.1); Sodium 134 mmol/L (135-145)
== END 2022-08-10 10:31 | disposition home or self-care (01) ==
LOC: HO.LAB 10:30
PROVIDERS: PCP Internal Medicine; Visit Provider Internal Medicine Nephrology
DX: I12.9 Hypertensive chronic kidney disease with stage 1 through stage 4 chronic kidney disease, or unspecified chronic kidney disease (principal); N18.31 Chronic kidney disease, stage 3a; I70.1 Atherosclerosis of renal artery
CPT/HCPCS: 36415; 80051; 82310; 82565; 84520

== ENCOUNTER 2022-09-25 13:39 | Outpatient (REF) | payer OTHER, SELFPAY ==
[2022-09-25 14:38] LABS: Anion Gap 15 (12-20); Blood Urea Nitrogen 32 mg/dL (9-16); Calcium 10.1 mg/dL (8.4-10.2); Carbon Dioxide 24 mmol/L (22-29); Chloride 101 mmol/L (96-108); Estimated Glomerular Filt Rate 23; Potassium 4.9 mmol/L (3.3-5.1); Sodium 135 mmol/L (135-145)
== END 2022-09-25 13:40 | disposition home or self-care (01) ==
LOC: HO.LAB 13:39
PROVIDERS: PCP Internal Medicine; Visit Provider Internal Medicine Nephrology
DX: I12.9 Hypertensive chronic kidney disease with stage 1 through stage 4 chronic kidney disease, or unspecified chronic kidney disease (principal); N18.31 Chronic kidney disease, stage 3a; I70.1 Atherosclerosis of renal artery
CPT/HCPCS: 36415; 80051; 82310; 82565; 84520

== ENCOUNTER 2022-10-18 08:14 | Outpatient (REF) | payer OTHER, SELFPAY ==
[2022-10-18 08:35] LABS: MANUAL DIFF FLAG NO
[2022-10-18 08:46] LABS: Basophils Percent Auto 0.4 % (0-2); Eosinophils Absolute Auto 0.1 X10*3/uL (0.0-0.4); Eosinophils Percent Auto 1.4 % (0-4); Hematocrit 32.6 % (37.0-47.0); Hemoglobin 10.3 g/dl (12.0-16.0); Imm Gran Abs Auto 0.03 X10*3/uL (0.00-0.03); Imm Gran Pct Auto 0.4 % (0.0-0.4); Lymphocytes Absolute Auto 1.7 X10*3/uL (1.2-4.9); Lymphocytes Percent Auto 21.7 % (20-40); Mean Corpuscular HGB Conc 31.6 g/dl (31.0-35.0); Mean Corpuscular Hemoglobin 27.5 pg (27.0-33.0); Mean Corpuscular Volume 86.9 fL (80.0-98.0); Mean Platelet Volume 10.1 fL (9.4-12.3); Monocytes Absolute Auto 0.9 X10*3/uL (0.1-1.2); Monocytes Percent Auto 11.7 % (2-11); Neutrophils Percent Auto 64.4 % (45-73); Platelet Count 322 X10*3/uL (160-400); Red Blood Count 3.75 X10*6/uL (4.20-5.50); Red Cell Distribution Width 15.2 % (11.0-16.0); White Blood Count 7.8 X10*3/uL (4.8-10.8)
[2022-10-18 08:55] LABS: Estimated Average Glucose 157 mg/dL; Hemoglobin A1c % 7.1 %
[2022-10-18 09:24] LABS: Appearance Urine Clear; Color Urine Yellow; Glucose Urine UA Negative (Negative); Leukocyte Esterase Urine Trace (Negative); Nitrite Urine Negative (Negative); PH 6.5 (5.0-9.0); Specific Gravity - Urine <= 1.005 (1.005-1.025); UMIC TRIGGER UACC YES; Urine Blood Negative (Negative); Urine Ketones Negative (Negative); Urine Protein Trace mg/dL (Neg-Trace)
[2022-10-18 09:32] LABS: Alanine Aminotransferase 18 U/L (0-31); Albumin Level 4.6 g/dL (3.5-5.0); Alkaline Phosphatase 110 U/L (39-117); Anion Gap 14 (12-20); Aspartate Amino Transferase 21 U/L (5-31); Bilirubin Total 1.2 mg/dL (0.0-1.0); Blood Urea Nitrogen 28 mg/dL (9-16); Calcium 10.4 mg/dL (8.4-10.2); Carbon Dioxide 26 mmol/L (22-29); Chloride 99 mmol/L (96-108); Cholesterol 123 mg/dL; Estimated Glomerular Filt Rate 21; Free T4 (Free Thyroxine) 1.25 ng/dL (0.71-1.85); Glucose Fasting 111 mg/dL (60-99); HDL Cholesterol 56 mg/dL; LDL Cholesterol Calculated 53 mg/dl; Potassium 4.9 mmol/L (3.3-5.1); Sodium 134 mmol/L (135-145); Thyroid Stimulating Hormone 4.24 uIU/mL (0.32-4.0); Total Protein 7.7 g/dL (6.5-8.0); Triglycerides 71 mg/dL; Vitamin D 25-OH Total 31.2 ng/mL (>30)
[2022-10-18 09:42] LABS: Bacteria Urine None Seen (None Seen); Hyaline Casts Urine 0-2 /LPF (0-2); RBC Urine 0-2 /HPF (0-2); Squamous Epithelial Cell Urine 0-2 /HPF (0-2); WBC Urine 0-5 /HPF (0-5)
[2022-10-18 09:58] LABS: Creatinine Urine 40.53 mg/dL; Microalbum/Creatinine Ratio Ur 41.9 ug/mg cr
== END 2022-10-18 08:15 | disposition home or self-care (01) ==
LOC: HO.LAB 08:14
PROVIDERS: PCP Internal Medicine; Visit Provider Internal Medicine
DX: E78.00 Pure hypercholesterolemia, unspecified (principal); R79.89 Other specified abnormal findings of blood chemistry; E11.9 Type 2 diabetes mellitus without complications; I10 Essential (primary) hypertension; E55.9 Vitamin D deficiency, unspecified
CPT/HCPCS: 36415; 80053; 80061; 81001; 82043; 82306; 83036; 84439; 84443; 85025

== ENCOUNTER → 2022-12-21 08:47 | Outpatient (REF) | payer OTHER, SELFPAY ==
--- NOTE | 2022-12-21 08:49 | CA_ITS ---
Transthoracic Echocardiogram Patient (Last, First, Middle): Alicia Noel, Gender: Female Date of : 1945 Age: 77 Procedure Date: 12/21/2022 Procedure Type: Transthoracic Echocardiogram Location: OP Height: 152.4 cm Weight: 80.29 kg BSA: 1.77 m2 Heart Rate: bpm BP: 120 / 66 mmHg Indoor Plant Technician: TO Referring MD: Juve Alcazar MD Supervisor [employer]: Nick Rivera MD Symptoms: I42.9 - Cardiomyopathy, unspecified Study Quality: Fair, contrast ECG Rhythm: Sinus Conclusions: - 1. Mildly reduced LV systolic function with LVEF of 45-50% with impaired relaxation filling pattern 2. Normal cardiac valvular Doppler 3. Normal RV systolic pressure 4. No gross pericardial effusion Findings Procedure Information Contrast agent, definity, is being given per protocol without apparent complications. Left Ventricle Normal left ventricular cavity size. There is normal left ventricular wall thickness. The left ventricular systolic function is mildly decreased. The visually estimated ejection fraction is between 45-50%. There is paradoxical septal motion consistent with a left bundle branch block. Spectral Doppler is indicative of an impaired relaxation filling pattern. E/E prime ratio is between 8 and 15 consistent with indeterminate filling pressures. Right Ventricle Normal right ventricular cavity size and systolic function. Atria The left atrium is normal in size. Interatrial shunt cannot be excluded. The right atrium is normal in size. Aortic Valve The aortic valve was not well visualized. There is no aortic valve stenosis. There is no aortic valve regurgitation. Mitral Valve There is mild anterior and posterior mitral leaflet thickening. There is trace mitral valve regurgitation. There is no mitral valve stenosis. Pulmonic Valve The pulmonic valve was not well visualized. Tricuspid Valve Likely normal tricuspid valve structure and function. There is trace tricuspid valve regurgitation. The right ventricular systolic pressure is normal. The right ventricular systolic pressure is 24 mmHg. Normal right atrial pressure. Great Vessels All visible segments of the aorta are normal in size. The pulmonary artery was not well visualized. Venous The inferior vena cava is normal in size and collapses greater than 50% with inspiration. Pericardium/Pleural There is no evidence of pericardial effusion. Prior Study Comparison No significant change compared to prior study dated: 08/06/2021. Measurements 2D Linear Measurements IVSd: 1.14 0.6-0.9/0.6-1.0 cm LVIDd: 4.81 3.9-5.3/4.2-5.9 cm LVIDd Index: 2.72 2.4-3.2/2.2-3.1 cm/m2 LVIDs: 3.17 2.0-3.6 cm LVPWd: 0.81 0.7-1.1 cm LA Diam: 3.30 2.7-3.8/3.0-4.0 cm LAIDs Index: 1.86 1.5-2.3 cm/m2 LV Mass: 204.97 67-162/88-224 g LV Mass Index: 115.80 43-95/49-115 g/m2 LVOT Diam: 2.10 3.0+(-)1.3 cm 2D Systolic Function EF 4C: 46.00 >55% EF 2C: 49.10 >55% EF BiP: 49.20 >55% Mitral Valve MV Pk E: 0.61 MV PK A: 0.74 MV Decel Time: 221.00 E/A: 0.80 E'Lateral: 7.72 E'Medial: 6.74 E/E' Med: 9.00 E/E' Lat: 7.90 PHT: 65.00 MVA PHT: 3.38 [place]: 2.75 Aortic Valve AoV Pk Marciano: 1.32 AoV Mn Marciano: 0.92 AoV VTI: 0.30 AoV Pk Grad: 7.00 Aov Mn Grad: 4.00 HANNAH Cont.VTI: 2.47 LVOT LVOT Pk Marciano: 0.95 LVOT Mn Marciano: 0.63 LVOT VTI: 0.21 LVOT Pk Grad: 4.00 LVOT Mn Grad: 2.00 LVOT Diam: 2.10 LVOT Area: 3.46 Diastolic Function MV Pk E: 0.61 MV Pk A: 0.74 E/A: 0.80 E'Medial: 6.74 E/E' Med: 9.00 E' Laterial: 7.72 E/E' Lat: 7.90 Right Ventricle TAPSE (mm): 17.10 TVS' Marciano: 8.38 Tricuspid Valve TR Pk Marciano: 2.29 TR Pk Grad: 21.00 RA Press: 3.00 RVSP: 24.00 Great Vessels Aorta Sinus of Valsalva: 3.43 2.0-3.[address] [place]: 2.84 1.7-3.4 cm Ao Asc: 3.40 2.1-3.4 cm Updated in Other Vendor System with Status of Final Nick Rivera MD electronically signed on 12/22/2022 2:52:45 PM with status of Final
== END ==
LOC: HO.CARD 08:47
PROVIDERS: PCP Internal Medicine; Visit Provider Internal Medicine
DX: I42.9 Cardiomyopathy, unspecified (principal)
CPT/HCPCS: 93306; Q9957

== ENCOUNTER → 2022-12-28 11:36 | Outpatient (BNVA) | payer OTHER, SELFPAY | PROVIDERS: PCP Internal Medicine; Visit Provider Nurse Practitioner Family | DX: K59.04 Chronic idiopathic constipation (principal); K21.9 Gastro-esophageal reflux disease without esophagitis; Z79.899 Other long term (current) drug therapy | CPT/HCPCS: 99212 ==

== ENCOUNTER → 2023-01-01 10:33 | Outpatient (BNVA) | payer OTHER, SELFPAY | PROVIDERS: PCP Internal Medicine; Referring Provider Internal Medicine; Visit Provider Internal Medicine | DX: I42.8 Other cardiomyopathies (principal); I44.7 Left bundle-branch block, unspecified; I10 Essential (primary) hypertension | CPT/HCPCS: 99212 ==

== ENCOUNTER 2023-01-01 11:08 | Outpatient (REF) | payer OTHER, SELFPAY ==
[2023-01-01 11:32] LABS: MANUAL DIFF FLAG NO
[2023-01-01 11:56] LABS: Basophils Absolute Auto 0.1 X10*3/uL (0.0-0.2); Eosinophils Absolute Auto 0.1 X10*3/uL (0.0-0.4); Eosinophils Percent Auto 1.1 % (0-4); Hematocrit 33.1 % (37.0-47.0); Hemoglobin 10.4 g/dl (12.0-16.0); Imm Gran Abs Auto 0.03 X10*3/uL (0.00-0.03); Imm Gran Pct Auto 0.5 % (0.0-0.4); Lymphocytes Absolute Auto 1.2 X10*3/uL (1.2-4.9); Lymphocytes Percent Auto 19.1 % (20-40); Mean Corpuscular HGB Conc 31.4 g/dl (31.0-35.0); Mean Corpuscular Hemoglobin 27.2 pg (27.0-33.0); Mean Corpuscular Volume 86.6 fL (80.0-98.0); Mean Platelet Volume 11.7 fL (9.4-12.3); Monocytes Absolute Auto 0.7 X10*3/uL (0.1-1.2); Monocytes Percent Auto 10.7 % (2-11); Neutrophils Absolute Auto 4.2 x10*3/uL (2.0-8.3); Neutrophils Percent Auto 67.6 % (45-73); Platelet Count 210 X10*3/uL (160-400); Red Blood Count 3.82 X10*6/uL (4.20-5.50); Red Cell Distribution Width 15.6 % (11.0-16.0); White Blood Count 6.2 X10*3/uL (4.8-10.8)
[2023-01-01 13:25] LABS: Anion Gap 12 (12-20); Blood Urea Nitrogen 33 mg/dL (9-16); Calcium 9.5 mg/dL (8.4-10.2); Carbon Dioxide 25 mmol/L (22-29); Chloride 102 mmol/L (96-108); Estimated Glomerular Filt Rate 20; Phosphorus 2.9 mg/dL (2.7-4.5); Potassium 5.2 mmol/L (3.3-5.1); Sodium 134 mmol/L (135-145)
[2023-01-01 13:45] LABS: Vitamin D 25-OH Total 30.3 ng/mL (>30)
[2023-01-02 14:54] LABS: Calcium (PTHI) 10.2 mg/dL (8.6-10.4); PTHI 93 pg/mL (16-77)
== END 2023-01-01 11:09 | disposition home or self-care (01) ==
LOC: HO.LAB 11:08
PROVIDERS: PCP Internal Medicine; Visit Provider Internal Medicine Nephrology
DX: I12.9 Hypertensive chronic kidney disease with stage 1 through stage 4 chronic kidney disease, or unspecified chronic kidney disease (principal); N18.31 Chronic kidney disease, stage 3a; I70.1 Atherosclerosis of renal artery
CPT/HCPCS: 36415; 80051; 82306; 82310; 82565; 83970; 84100; 84520; 85025

== ENCOUNTER 2023-01-25 08:57 | Outpatient (REF) | payer OTHER, SELFPAY ==
[2023-01-25 09:24] LABS: MANUAL DIFF FLAG NO
[2023-01-25 09:43] LABS: Basophils Percent Auto 0.6 % (0-2); Eosinophils Absolute Auto 0.1 X10*3/uL (0.0-0.4); Hematocrit 33.4 % (37.0-47.0); Hemoglobin 10.5 g/dl (12.0-16.0); Imm Gran Abs Auto 0.02 X10*3/uL (0.00-0.03); Imm Gran Pct Auto 0.3 % (0.0-0.4); Lymphocytes Absolute Auto 1.2 X10*3/uL (1.2-4.9); Mean Corpuscular HGB Conc 31.4 g/dl (31.0-35.0); Mean Corpuscular Hemoglobin 27.9 pg (27.0-33.0); Mean Corpuscular Volume 88.6 fL (80.0-98.0); Mean Platelet Volume 11.3 fL (9.4-12.3); Monocytes Absolute Auto 0.6 X10*3/uL (0.1-1.2); Monocytes Percent Auto 9.1 % (2-11); Neutrophils Absolute Auto 5.1 x10*3/uL (2.0-8.3); Platelet Count 303 X10*3/uL (160-400); Red Blood Count 3.77 X10*6/uL (4.20-5.50); Red Cell Distribution Width 15.9 % (11.0-16.0)
[2023-01-25 09:46] LABS: Appearance Urine Clear; Color Urine Yellow; Glucose Urine UA Negative (Negative); Leukocyte Esterase Urine Trace (Negative); Nitrite Urine Negative (Negative); PH 7.5 (5.0-9.0); Specific Gravity - Urine <= 1.005 (1.005-1.025); UMIC TRIGGER UACC YES; Urine Blood Negative (Negative); Urine Ketones Negative (Negative); Urine Protein Trace mg/dL (Neg-Trace)
[2023-01-25 09:51] LABS: Bacteria Urine None Seen (None Seen); Hyaline Casts Urine 0-2 /LPF (0-2); RBC Urine 0-2 /HPF (0-2); Squamous Epithelial Cell Urine 0-2 /HPF (0-2); WBC Urine 0-5 /HPF (0-5)
[2023-01-25 09:55] LABS: Estimated Average Glucose 183 mg/dL
[2023-01-25 10:17] LABS: Creatinine Urine 30.76 mg/dL; Microalbum/Creatinine Ratio Ur 74.7 ug/mg cr
[2023-01-25 10:39] LABS: Alanine Aminotransferase 22 U/L (0-31); Albumin Level 4.4 g/dL (3.5-5.0); Alkaline Phosphatase 107 U/L (39-117); Anion Gap 18 (12-20); Aspartate Amino Transferase 24 U/L (5-31); Bilirubin Total 1.2 mg/dL (0.0-1.0); Blood Urea Nitrogen 31 mg/dL (9-16); Calcium 9.8 mg/dL (8.4-10.2); Carbon Dioxide 22 mmol/L (22-29); Chloride 101 mmol/L (96-108); Cholesterol 131 mg/dL; Estimated Glomerular Filt Rate 23; Glucose Fasting 147 mg/dL (60-99); HDL Cholesterol 54 mg/dL; Iron 48 mcg/dL (30-160); LDL Cholesterol Calculated 67 mg/dl; Percent Iron Saturation 12 % (15-50); Potassium 5.7 mmol/L (3.3-5.1); Sodium 135 mmol/L (135-145); Total Iron Binding Capacity 401 mcg/dL (228-428); Total Protein 7.3 g/dL (6.5-8.0); Triglycerides 53 mg/dL; Unsaturated Iron Binding 353 ug/dL
[2023-01-25 11:11] LABS: Free T4 (Free Thyroxine) 1.07 ng/dL (0.71-1.85)
[2023-01-29 13:43] LABS: Erythropoietin (EPO) 26.8 mIU/mL (2.6-18.5)
== END 2023-01-25 08:58 | disposition home or self-care (01) ==
LOC: HO.LAB 08:57
PROVIDERS: PCP Internal Medicine; Visit Provider Internal Medicine
DX: I10 Essential (primary) hypertension (principal); E78.00 Pure hypercholesterolemia, unspecified; D64.9 Anemia, unspecified; E11.9 Type 2 diabetes mellitus without complications; E55.9 Vitamin D deficiency, unspecified; D50.9 Iron deficiency anemia, unspecified; R30.0 Dysuria
CPT/HCPCS: 36415; 80053; 80061; 81001; 82043; 82306; 82668; 83036; 83540; 84439; 84443; 85025

== ENCOUNTER 2023-04-05 09:12 | Outpatient (REF) | payer OTHER, SELFPAY ==
[2023-04-05 09:26] LABS: MANUAL DIFF FLAG NO
[2023-04-05 10:10] LABS: Basophils Percent Auto 0.7 % (0-2); Eosinophils Absolute Auto 0.1 X10*3/uL (0.0-0.4); Eosinophils Percent Auto 1.5 % (0-4); Hematocrit 32.9 % (37.0-47.0); Hemoglobin 10.4 g/dl (12.0-16.0); Imm Gran Abs Auto 0.03 X10*3/uL (0.00-0.03); Imm Gran Pct Auto 0.5 % (0.0-0.4); Lymphocytes Absolute Auto 1.3 X10*3/uL (1.2-4.9); Lymphocytes Percent Auto 21.5 % (20-40); Mean Corpuscular HGB Conc 31.6 g/dl (31.0-35.0); Mean Corpuscular Hemoglobin 27.8 pg (27.0-33.0); Mean Platelet Volume 11.6 fL (9.4-12.3); Monocytes Absolute Auto 0.7 X10*3/uL (0.1-1.2); Neutrophils Absolute Auto 3.9 x10*3/uL (2.0-8.3); Neutrophils Percent Auto 64.8 % (45-73); Platelet Count 285 X10*3/uL (160-400); Red Blood Count 3.74 X10*6/uL (4.20-5.50); Red Cell Distribution Width 16.6 % (11.0-16.0)
[2023-04-05 10:45] LABS: Anion Gap 16 (12-20); Blood Urea Nitrogen 29 mg/dL (9-16); Calcium 9.9 mg/dL (8.4-10.2); Carbon Dioxide 22 mmol/L (22-29); Chloride 100 mmol/L (96-108); Estimated Glomerular Filt Rate 18; Phosphorus 2.9 mg/dL (2.7-4.5); Potassium 4.9 mmol/L (3.3-5.1); Sodium 133 mmol/L (135-145)
[2023-04-05 11:19] LABS: Vitamin D 25-OH Total 37.6 ng/mL (>30)
[2023-04-09 15:34] LABS: Calcium (PTHI) 10.2 mg/dL (8.6-10.4); PTHI 118 pg/mL (16-77)
== END 2023-04-05 09:13 | disposition home or self-care (01) ==
LOC: HO.LAB 09:12
PROVIDERS: PCP Internal Medicine; Visit Provider Internal Medicine Nephrology
DX: I12.9 Hypertensive chronic kidney disease with stage 1 through stage 4 chronic kidney disease, or unspecified chronic kidney disease (principal); N18.31 Chronic kidney disease, stage 3a; I70.1 Atherosclerosis of renal artery
CPT/HCPCS: 36415; 80051; 82306; 82310; 82565; 83970; 84100; 84520; 85025

== ENCOUNTER 2023-05-10 09:58 | Outpatient (REF) | payer OTHER, SELFPAY ==
[2023-05-10 13:59] LABS: Anion Gap 12 (12-20); Blood Urea Nitrogen 33 mg/dL (9-16); Calcium 10.1 mg/dL (8.4-10.2); Carbon Dioxide 24 mmol/L (22-29); Chloride 102 mmol/L (96-108); Estimated Glomerular Filt Rate 20; Potassium 4.4 mmol/L (3.3-5.1); Sodium 134 mmol/L (135-145)
== END 2023-05-10 09:59 | disposition home or self-care (01) ==
LOC: HO.LAB 09:58
PROVIDERS: Absent Provider Internal Medicine Nephrology; PCP Internal Medicine; Visit Provider Internal Medicine
DX: I12.9 Hypertensive chronic kidney disease with stage 1 through stage 4 chronic kidney disease, or unspecified chronic kidney disease (principal); N18.31 Chronic kidney disease, stage 3a; I70.1 Atherosclerosis of renal artery
CPT/HCPCS: 36415; 80051; 82310; 82565; 84520

== ENCOUNTER 2023-05-17 09:05 | Emergency (ER) | payer OTHER, SELFPAY ==
--- NOTE | ~2023-05-17 | XR_ITS ---
EXAMINATION: XR RIBS, RIGHT, PA CHEST CLINICAL INFORMATION: Chest and rib pain status post fall. COMPARISON: 08/07/2017 chest radiograph. TECHNIQUE: 3 views of the right ribs were obtained along with a PA view of the chest. A skin marker overlies the anterolateral left ribs. FINDINGS: Lungs are clear. No consolidation, pneumothorax, or pleural effusion. The cardiomediastinal silhouette and pulmonary vasculature are normal. There is a subtle deformity in the lateral left seventh rib. The remainder the ribs appear intact. No fractures are identified. XR/XR ribs LT min 3V w CXR1V IMPRESSION: 1. No acute cardiopulmonary process. 2. Subtle deformity in the lateral left seventh rib. An acute fracture cannot be excluded. Correlate with physical exam.
[2023-05-17 09:07] VITALS: BP 149/79; PULSE 71; RESP 17; TEMP 35.9; O2SAT 98; BMI 32.8
--- NOTE | 2023-05-17 09:25 | ED.FALL ---
HPI - Fall General Chief Complaint: Fall Stated Complaint: fall x3wks ago bruises Time Seen by Provider: 05/17/23 09:23 Source: patient Mode of arrival: ambulatory Limitations: no limitations History of Present Illness HPI Narrative: 77 yo famel with history of CKD IV, anxiety/depression, HTN, nonischemic cardiomyopathy, renal arterty stenosis, anemia of chronic disease who presents to the ER for evaluation of bruising on the left side of her body after she fell 3 weeks ago. She states she tripped over a broom, falling onto boxes of various items. No head strike or LOC. She states she has had pain to her left upper back and left lateral ribs since the fall with bruising to her left lateral ribs. She also has bruising on her left thigh and left lower leg. She is still ambulating normally with her cane. The bruising is starting to change colors from black to purple. She is not on anticoagulation. She denies chest pain or abdominal pain. No lightheadedness or dizziness. She was seen at her [facility] Health Navigator's office 2 days ago who encouraged her to get evaluated for possible rib fracture. MD complaint: fall Onset (ago): week(s) (3) Fall from: standing Place fall occurred: home Loss of consciousness: none Prolonged down time: no Symptoms prior to fall: none Context: tripped/slipped Location of injury: chest and back Location of injury - extremities: left: thigh and lower leg Severity: moderate Quality: aching Associated symptoms (after fall): denies Related Data Home Medications Medication Instructions Recorded Confirmed acetaminophen 500 mg tablet 500 mg PO .TWICE A DAY PRN Pain 08/16/20 01/30/23 (Tylenol Extra Strength) alprazolam 0.5 mg tablet 0.5 mg PO BID PRN Anxiety 08/16/20 01/30/23 aluminum-mag hydroxide-simethicone 10 ml PO ONCE PRN Stomach Upset 08/16/20 01/30/23 200 mg-200 mg-20 mg/5 mL oral susp buspirone 7.5 mg tablet 7.5 mg PO DAILY 08/16/20 01/30/23 ciclopirox 0.77 % topical cream 1 applic topical BID 02/22/21 01/30/23 cholecalciferol (vitamin D3) 25 25 mcg PO DAILY 08/06/21 01/30/23 mcg (1,000 unit) tablet (Vitamin D3) propylene glycol 0.6 % eye drops 1 drp ophthalmic (eye) BID PRN Dry 08/06/21 01/30/23 (Systane Balance) Eye(S) multivitamin with minerals-folic tab PO 12/06/21 01/30/23 acid 200 mcg chewable tablet (Adult Multivitamin Gummies) furosemide 20 mg tablet 10 mg PO QAM 07/03/22 01/30/23 Previous Rx's Medication Instructions Recorded nystatin 100,000 unit/gram topical 1 appl topical TID PRN rash 14 02/07/22 powder days #30 grams polyethylene glycol 3350 17 gram 17 g PO DAILY PRN constipation 90 07/17/22 oral powder packet days #100 ea pantoprazole 40 mg tablet,delayed 40 mg PO DAILY #90 tabs 11/22/22 release rosuvastatin 40 mg tablet 40 mg PO DAILY 90 days #90 tabs 12/09/22 metformin 500 mg tablet,extended 500 mg PO DAILY 90 days #90 tabs 12/15/22 release 24 hr sennosides 8.6 mg tablet 17.2 mg PO DAILY PRN constipation 12/15/22 30 days #60 tabs blood sugar diagnostic (KurtosysTouch #100 strips 01/30/23 Ultra Test strips) lancets 33 gauge (KurtosysTouch Delica #200 ea 01/30/23 Plus Lancet) spironolactone 25 mg tablet 25 mg PO BEDTIME 30 days #30 tabs 01/30/23 (Aldactone) clotrimazole-betamethasone 1 1 appl topical BID PRN rash #30 02/13/23 %-0.05 % topical cream grams carvedilol 6.25 mg tablet 6.25 mg PO BID #180 tabs 03/11/23 losartan 25 mg tablet 25 mg PO DAILY 90 days #90 tabs 04/02/23 dulaglutide 1.5 mg/0.5 mL 1.5 mg (0.5 mL) subcut QWEEK 4 05/16/23 subcutaneous pen injector weeks #2 mL lidocaine 5 % topical patch 1 patch topical DAILY #15 ea 05/17/23 Allergies Allergy/AdvReac Type Severity Reaction Status Date / Time aspirin [Aspirin] Allergy Severe MOUTH Verified 01/30/23 11:14 SWELLING hydrochlorothiazide Allergy Intermediate DROP IN Verified 01/30/23 11:14 [Hydrochlorothiazide] BLOOD PRESSURE Penicillins [PENICILLINS] Allergy Intermediate ITCHING Verified 01/30/23 11:14 caffeine [Caffeine] Allergy Mild NERVOUSNESS Verified 01/30/23 11:14 lisinopril [Lisinopril] Allergy Mild CHANGES IN Verified 01/30/23 11:14 BLOOD PRESSURE ranitidine [RANITIDINE] Allergy Mild HEADACHE Verified 01/30/23 11:14 amlodipine [AMLODIPINE] Allergy Unknown UNKNOWN Verified 01/30/23 11:14 amoxicillin Allergy Unknown itching, Verified 01/30/23 11:14 severe with rash diclofenac Allergy Unknown Unknown Verified 01/30/23 11:14 escitalopram Allergy Unknown abdominal Verified 01/30/23 11:14 discomfort, drowsiness esomeprazole [Nexium] Allergy Unknown Unknown Verified 01/30/23 11:14 isosorbide [ISOSORBIDE] Allergy Unknown UNKNOWN Verified 01/30/23 11:14 lidocaine [Lidoderm] Allergy Unknown weakness Verified 01/30/23 11:14 mirtazapine Allergy Unknown Unknown Verified 01/30/23 11:14 nystatin Allergy Unknown rash Verified 01/30/23 11:14 sertraline [SERTRALINE] Allergy Unknown UNKNOWN Verified 01/30/23 11:14 dexlansoprazole AdvReac Severe AGITATION Verified 01/30/23 11:14 [From DEXILANT] hydrocortisone AdvReac Mild RAISES Verified 01/30/23 11:14 [From Cortizone-10] BLOOD SUGAR topiramate [From TOPAMAX] AdvReac Unknown AGITATION Verified 01/30/23 11:14 From PLAVIX Allergy Unknown PT UNSURE Uncoded 01/30/23 11:14 OF REACTION Medical tape Allergy Unknown Rash Uncoded 01/30/23 11:14 Review of Systems Review of Systems: Yes all other systems are reviewed and are negative PMFSH Past Medical History Medical History Anxiety Benign essential hypertension Cardiomyopathy Chronic kidney disease, stage 4 (severe) Conjunctival hemorrhage of right eye COVID-19 Depression GERD (gastroesophageal reflux disease) Hyperkalemia Left bundle branch block Nonischemic cardiomyopathy Obesity Obesity (BMI 30-39.9) Pneumonia due to COVID-19 virus Pure hypercholesterolemia HARRIET (renal artery stenosis) Renal artery stenosis Skin abrasion Stasis edema of both lower extremities Type 2 diabetes mellitus Urinary incontinence Vertigo Surgical History History of cataract surgery History of cholecystectomy History of lumpectomy of left breast Hx of colonoscopy Hx of myomectomy Family History Family History Father CVD (cardiovascular disease) Myocardial infarction Mother Myocardial infarction CVD (cardiovascular disease) Brother Myocardial infarction Family/Other FH: prostate cancer Social History Social History Household Members: None Housing: Apartment Do you presently have visiting nurse or other home services: No Alcohol intake: never Patient Tobacco Use Status: Former Tobacco user e-Cigarette/Vaping Use: Never Used Second Hand Smoke Exposure: No Advance Directives: Yes Advance Directives on File: Yes Advance Directives Date on File: 08/06/21 service: No Current occupational status: disabled Cognitive needs: No Hearing needs: No Vision needs: Yes Physical Exam Vital Signs: Vital Signs: Last Vital Signs Temp 96.6 F L 05/17/23 09:07 Pulse 71 05/17/23 09:07 Resp 17 05/17/23 09:07 BP 149/79 H 05/17/23 09:07 Pulse Ox 98 05/17/23 09:07 O2 Del Method Room Air 05/17/23 09:07 BMI result Body Mass Index 32.8 Appearance: Alert. Oriented X3. No acute distress. Head: normocephalic, atraumatic. Eyes: Pupils equal, round and reactive to light. ENT: Pharynx normal. No tonsillar swelling or exudate. Neck: Normal inspection. Neck supple. No midline tenderness CVS: Normal heart rate and rhythm. Pulses normal. Respiratory: No respiratory distress. Breath sounds normal. There is ecchymosis and tenderness to the middle left lateral ribs. Abdomen: Soft and nontender. +BS x4. No ecchymosis on abdominal wall or flank Skin: Skin warm and dry. Normal skin color. Normal skin turgor. No rashes. Extremities: No lower extremity edema. No joint swelling. old ecchymosis to left lateral thigh, approx 8-9cm round with some central induration, no fluctuance or erythema. left lower leg with scattered ecchymosis anteriorly. no calf tenderness or swelling. Neuro/psych: Oriented X 3. No motor deficit. No sensory deficit. CN II-XII intact. Normal speech and cognition. steady gait with cane Medical Decision Making Medical Decision Making [facility] Narrative: 77 yo famel with history of CKD IV, anxiety/depression, HTN, nonischemic cardiomyopathy, renal arterty stenosis, anemia of chronic disease who presents to the ER for evaluation of bruising on the left side of her body after she fell 3 weeks ago. She also c/o left rib pain and back pain. Lungs CTAB. No LUQ tenderness to suggest splenic injury. H/H was stable from prior, coags normal. CKD at baseline, stable hyponatremia. XRs showing possible left lateral rib fx #7, nondisplaced, imaging reviewed. Reviewed results and management with patient. she is stable for d/c home with supportive care and outpatient follow up. Differential Diagnosis Differential Diagnoses: The differential diagnosis associated with the presentation includes rib contusion, rib fracture, pulmonary contusion, hematoma, thigh contusion, less likely splenic laceration Admission/Observation Consideration of admission/observation: Escalation of care including admission/observation considered elderly female with multiple trauma, considered observation but H/H stable and injuries were old Lab Data [facility] Lab Attestation statement: I reviewed the patient's lab results. stable anemia, CKD at baseline, Na+ at baseline 05/17/23 09:56 05/17/23 09:56 Labs: Lab Results 05/17/23 05/17/23 05/17/23 Range/Units 09:56 09:56 09:56 WBC 6.7 (4.8-10.8) X10*3/uL RBC 3.84 L (4.20-5.50) X10*6/uL Hgb 10.6 L (12.0-16.0) g/dl Hct 33.6 L (37.0-47.0) % MCV 87.5 (80.0-98.0) fL MCH 27.6 (27.0-33.0) pg MCHC 31.5 (31.0-35.0) g/dl RDW 15.6 (11.0-16.0) % Plt Count 299 (160-400) X10*3/uL MPV 10.6 (9.4-12.3) fL Immature Gran % (Auto) 0.4 (0.0-0.4) % Neut % (Auto) 66.7 (45-73) % Lymph % (Auto) 17.9 L (20-40) % [place] % (Auto) 13.1 H (2-11) % Eos % (Auto) 1.5 (0-4) % Baso % (Auto) 0.4 (0-2) % Lymph # (Auto) 1.2 (1.2-4.9) X10*3/uL [place] # (Auto) 0.9 (0.1-1.2) X10*3/uL Eos # (Auto) 0.1 (0.0-0.4) X10*3/uL Baso # (Auto) 0.0 (0.0-0.2) X10*3/uL Abs Immat Gran (auto) 0.03 (0.00-0.03) X10*3/uL Absolute Neuts (auto) 4.5 (2.0-8.3) x10*3/uL Absolute Nucleated RBC 0.000 (0.0-0.012) X10*3/uL Nucleated RBC % (auto) 0.0 (0.0-0.2) /100WBC PT 11.5 (11.1-13.3) SEC INR 0.9 (0.9-1.1) Sodium 132 L (135-145) mmol/L Potassium 4.8 (3.3-5.1) mmol/L Chloride 101 (96-108) mmol/L Carbon Dioxide 20 L (22-29) mmol/L Anion Gap 16 (12-20) BUN 27 H (9-16) mg/dL Creatinine 2.23 H (0.5-1.4) mg/dL Estim Creat Clear Calc 18.6 Estimated GFR 21 Random Glucose 153 H (60-115) mg/dL Calcium 10.4 H (8.4-10.2) mg/dL Magnesium 2.3 (1.6-2.6) mg/dL Total Bilirubin 1.1 H (0.0-1.0) mg/dL Direct Bilirubin 0.5 (0.0-0.5) mg/dL AST 32 H (5-31) U/L ALT 29 (0-31) U/L Alkaline Phosphatase 109 (39-117) U/L Total Protein 8.0 (6.5-8.0) g/dL Albumin 4.4 (3.5-5.0) g/dL Independent Interpretation I performed an independent interpretation of an: Plain X-Ray Interpretation: lung clear, left lateral rib #7 fx, nondisplaced, agree w/ radiology reading Radiology Impression Discussion of test interpretation with radiology: I have reviewed the radiologist's reading. Radiologist Impression: XR/XR ribs LT min 3V w CXR1V IMPRESSION: 1.? No acute cardiopulmonary process. 2.? Subtle deformity in the lateral left seventh rib. An acute fracture cannot be excluded. Correlate with physical exam. External Record Review External record reviewed: Office record, Outpatient record, Prior outpatient labs and Prior outpatient radiology Tests considered The following testing was considered but not selected: considered CT chest/abd/pelvis Prescription Management I considered prescription management with: Pain Medication Chronic Conditions Patient?s care impacted by: Hypertension and Other (obesity, CKD) Critical Care Time Critical Care Time Critical Care Time: No Discharge Plan Discharge Clinical Impression: Hematoma of left thigh, Contusion of rib on left side Patient Disposition: Home, Self-Care Instructions: Contusion in Adults (ED), Rib Contusion (ED) Additional Instructions: Your lab workup today was at your baseline Your x-ray showed a POSSIBLE rib fracture of rib #7 on the left side Treatment is pain control and supportive care Take Tylenol 650 mg every 6 hours around the clock for pain Use the prescribed pain patches to the area of most discomfort It is important to exercise your lungs and take deep breaths to help prevent pneumonia If you develop new or worsening symptoms call 911 or come back to the ER for further evaluation. Prescriptions: New lidocaine 5 % adhesive patch,medicated 1 patch topical DAILY Qty: 15 0RF Rx Instructions: leave on most painful area for up to 12 hrs No Action nystatin 100,000 unit/gram powder 1 appl topical TID PRN (Reason: rash) 14 Days Qty: 30 0RF pantoprazole 40 mg tablet,delayed release (DR/EC) 40 mg PO DAILY Qty: 90 3RF rosuvastatin 40 mg tablet 40 mg PO DAILY 90 Days Qty: 90 1RF metformin 500 mg tablet extended release 24 hr 500 mg PO DAILY 90 Days Qty: 90 1RF sennosides 8.6 mg tablet 17.2 mg PO DAILY PRN (Reason: constipation) 30 Days Qty: 60 1RF clotrimazole-betamethasone 1-0.05 % cream 1 appl topical BID PRN (Reason: rash) Qty: 30 2RF carvedilol 6.25 mg tablet 6.25 mg PO BID Qty: 180 0RF losartan 25 mg tablet 25 mg PO DAILY 90 Days Qty: 90 1RF dulaglutide 1.5 mg/0.5 mL pen injector 1.5 mg subcut QWEEK 28 Days Qty: 2 3RF ciclopirox 0.77 % cream 1 applic topical BID cholecalciferol (vitamin D3) [Vitamin D3] 25 mcg (1,000 unit) Tablet 25 mcg PO DAILY Systane Balance 0.6 % Drops 1 drp OPHTHALMIC (EYE) BID PRN (Reason: Dry Eye(S)) buspirone 7.5 mg tablet 7.5 mg PO DAILY alprazolam 0.5 mg tablet 0.5 mg PO BID PRN (Reason: Anxiety) acetaminophen [Tylenol Extra Strength] 500 mg tablet 500 mg PO .TWICE A DAY PRN (Reason: Pain) alum-mag hydroxide-simeth 200-200-20 mg/5 mL suspension 10 ml PO ONCE PRN (Reason: Stomach Upset) Rx Instructions: administer between meals and at bedtime polyethylene glycol 3350 17 gram powder in packet 17 g PO DAILY PRN (Reason: constipation) 90 Days Qty: 100 5RF (DME) OneTouch Ultra Test Strip See Rx Instructions .ROUTE .COMPLEX Qty: 100 5RF Dose Instruction: USE DIRECTED TO TEST BLOOD SUGAR FOUR TIMES DAILY Rx Instructions: USE DIRECTED TO TEST BLOOD SUGAR FOUR TIMES DAILY (DME) lancets [OneTouch Delica Plus Lancet] 33 gauge misc See Rx Instructions .ROUTE .COMPLEX Qty: 200 5RF Dose Instruction: USE FOUR TIMES DAILY Rx Instructions: USE FOUR TIMES DAILY spironolactone [Aldactone] 25 mg tablet 25 mg PO BEDTIME 30 Days Qty: 30 3RF Adult Multivitamin Gummies 200 mcg tablet,chewable PO furosemide 20 mg tablet 10 mg PO QAM Referrals: Boaz Astorga MD [Primary Care Provider] -
[2023-05-17 10:03] LABS: MANUAL DIFF FLAG NO
[2023-05-17 10:07] LABS: Basophils Percent Auto 0.4 % (0-2); Eosinophils Absolute Auto 0.1 X10*3/uL (0.0-0.4); Eosinophils Percent Auto 1.5 % (0-4); Hematocrit 33.6 % (37.0-47.0); Hemoglobin 10.6 g/dl (12.0-16.0); Imm Gran Abs Auto 0.03 X10*3/uL (0.00-0.03); Imm Gran Pct Auto 0.4 % (0.0-0.4); Lymphocytes Absolute Auto 1.2 X10*3/uL (1.2-4.9); Lymphocytes Percent Auto 17.9 % (20-40); Mean Corpuscular HGB Conc 31.5 g/dl (31.0-35.0); Mean Corpuscular Hemoglobin 27.6 pg (27.0-33.0); Mean Corpuscular Volume 87.5 fL (80.0-98.0); Mean Platelet Volume 10.6 fL (9.4-12.3); Monocytes Absolute Auto 0.9 X10*3/uL (0.1-1.2); Monocytes Percent Auto 13.1 % (2-11); Neutrophils Absolute Auto 4.5 x10*3/uL (2.0-8.3); Neutrophils Percent Auto 66.7 % (45-73); Platelet Count 299 X10*3/uL (160-400); Red Blood Count 3.84 X10*6/uL (4.20-5.50); Red Cell Distribution Width 15.6 % (11.0-16.0); White Blood Count 6.7 X10*3/uL (4.8-10.8)
[2023-05-17 10:14] LABS: INTERNATIONAL NORM RATIO 0.9 (0.9-1.1); Prothrombin Time 11.5 SEC (11.1-13.3)
[2023-05-17 10:23] LABS: Alanine Aminotransferase 29 U/L (0-31); Albumin Level 4.4 g/dL (3.5-5.0); Alkaline Phosphatase 109 U/L (39-117); Anion Gap 16 (12-20); Aspartate Amino Transferase 32 U/L (5-31); Bilirubin Direct 0.5 mg/dL (0.0-0.5); Bilirubin Total 1.1 mg/dL (0.0-1.0); Blood Urea Nitrogen 27 mg/dL (9-16); Calcium 10.4 mg/dL (8.4-10.2); Carbon Dioxide 20 mmol/L (22-29); Chloride 101 mmol/L (96-108); Creatinine Clr Calc Pharmacy 18.6; Estimated Glomerular Filt Rate 21; Glucose Random 153 mg/dL (60-115); Magnesium 2.3 mg/dL (1.6-2.6); Potassium 4.8 mmol/L (3.3-5.1); Sodium 132 mmol/L (135-145)
== END 2023-05-17 10:55 | disposition home or self-care (01) ==
PROVIDERS: Physician Assistant; Emergency Provider Emergency Medicine Emergency Medical Services; PCP Internal Medicine
DX: S20.213A Contusion of bilateral front wall of thorax, initial encounter (principal); S70.12XA Contusion of left thigh, initial encounter; R07.89 Other chest pain; W01.0XXA Fall on same level from slipping, tripping and stumbling without subsequent striking against object, initial encounter; Y93.9 Activity, unspecified; Y92.9 Unspecified place or not applicable; Y99.9 Unspecified external cause status; Z79.899 Other long term (current) drug therapy
CPT/HCPCS: 36415; 71101; 80048; 80076; 83735; 85025; 85610; 99283

== ENCOUNTER 2023-05-28 09:14 | Outpatient (REF) | payer OTHER, SELFPAY ==
[2023-05-28 09:38] LABS: MANUAL DIFF FLAG NO
[2023-05-28 10:25] LABS: Basophils Absolute Auto 0.1 X10*3/uL (0.0-0.2); Basophils Percent Auto 0.7 % (0-2); Eosinophils Absolute Auto 0.1 X10*3/uL (0.0-0.4); Eosinophils Percent Auto 1.3 % (0-4); Hemoglobin 10.5 g/dl (12.0-16.0); Imm Gran Abs Auto 0.03 X10*3/uL (0.00-0.03); Imm Gran Pct Auto 0.4 % (0.0-0.4); Lymphocytes Absolute Auto 1.3 X10*3/uL (1.2-4.9); Lymphocytes Percent Auto 19.8 % (20-40); Mean Corpuscular HGB Conc 31.8 g/dl (31.0-35.0); Mean Corpuscular Hemoglobin 27.6 pg (27.0-33.0); Mean Corpuscular Volume 86.6 fL (80.0-98.0); Mean Platelet Volume 11.6 fL (9.4-12.3); Monocytes Absolute Auto 0.7 X10*3/uL (0.1-1.2); Monocytes Percent Auto 10.9 % (2-11); Neutrophils Absolute Auto 4.5 x10*3/uL (2.0-8.3); Neutrophils Percent Auto 66.9 % (45-73); Platelet Count 239 X10*3/uL (160-400); Red Blood Count 3.81 X10*6/uL (4.20-5.50); Red Cell Distribution Width 15.3 % (11.0-16.0); White Blood Count 6.7 X10*3/uL (4.8-10.8)
[2023-05-28 10:33] LABS: Estimated Average Glucose 186 mg/dL; Hemoglobin A1c % 8.1 %
[2023-05-28 11:08] LABS: Alanine Aminotransferase 40 U/L (0-31); Albumin Level 4.3 g/dL (3.5-5.0); Alkaline Phosphatase 100 U/L (39-117); Anion Gap 18 (12-20); Aspartate Amino Transferase 42 U/L (5-31); Bilirubin Total 1.3 mg/dL (0.0-1.0); Blood Urea Nitrogen 29 mg/dL (9-16); Calcium 10.3 mg/dL (8.4-10.2); Carbon Dioxide 17 mmol/L (22-29); Chloride 100 mmol/L (96-108); Cholesterol 130 mg/dL; Estimated Glomerular Filt Rate 21; Glucose Fasting 139 mg/dL (60-99); HDL Cholesterol 50 mg/dL; LDL Cholesterol Calculated 63 mg/dl; Magnesium 2.2 mg/dL (1.6-2.6); Potassium 4.9 mmol/L (3.3-5.1); Sodium 130 mmol/L (135-145); Total Protein 7.8 g/dL (6.5-8.0); Triglycerides 86 mg/dL
[2023-05-28 11:26] LABS: Free T4 (Free Thyroxine) 0.99 ng/dL (0.71-1.85); Thyroid Stimulating Hormone 3.52 uIU/mL (0.32-4.0)
== END 2023-05-28 09:15 | disposition home or self-care (01) ==
LOC: HO.LAB 09:14
PROVIDERS: PCP Internal Medicine; Visit Provider Internal Medicine
DX: E78.00 Pure hypercholesterolemia, unspecified (principal); E55.9 Vitamin D deficiency, unspecified; E83.42 Hypomagnesemia; E03.9 Hypothyroidism, unspecified; E11.9 Type 2 diabetes mellitus without complications; I10 Essential (primary) hypertension
CPT/HCPCS: 36415; 80053; 80061; 82306; 83036; 83735; 84439; 84443; 85025

== ENCOUNTER 2023-05-29 10:35 | Outpatient (REF) | payer OTHER, SELFPAY ==
[2023-05-29 11:22] LABS: Appearance Urine Clear; Color Urine Yellow; Glucose Urine UA Negative (Negative); Leukocyte Esterase Urine Negative (Negative); Nitrite Urine Negative (Negative); PH 6.5 (5.0-9.0); Specific Gravity - Urine <= 1.005 (1.005-1.025); UMIC TRIGGER UACC YES; Urine Blood Moderate (2+) (Negative); Urine Ketones Negative (Negative); Urine Protein 30 (1+) mg/dL (Neg-Trace)
[2023-05-29 11:28] LABS: Bacteria Urine None Seen (None Seen); Hyaline Casts Urine 0-2 /LPF (0-2); RBC Urine 0-2 /HPF (0-2); Squamous Epithelial Cell Urine 0-2 /HPF (0-2); WBC Urine 0-5 /HPF (0-5)
[2023-05-29 11:41] LABS: Creatinine Urine 22.04 mg/dL; Microalbum/Creatinine Ratio Ur 90.7 ug/mg cr
== END 2023-05-29 10:36 | disposition home or self-care (01) ==
LOC: HO.LNP 10:35
PROVIDERS: Visit Provider Internal Medicine
DX: E11.9 Type 2 diabetes mellitus without complications (principal)
CPT/HCPCS: 81001; 81003; 82043

== ENCOUNTER 2023-06-01 10:15 | Outpatient (AMB) | payer OTHER, SELFPAY ==
--- NOTE | 2023-06-01 10:20 | MHC.PC.OV ---
Vital Signs 06/01/23 10:21 Height 5 ft Weight 166 lb 14.239 oz BMI 32.6 BP 126/80 Blood Pressure Location Rt brachial Position Sitting Pulse 70 Pulse Source Pulse Oximeter Pulse Oximetry (%) 99 Oxygen Delivery Method Room Air Intake Visit Reasons: CKD stage 4, HARRIET, DM, hyperlipidemia, HTN Accounting Analyst Required: No Accompanied by: Self / Same As Patient Allergies aspirin [Aspirin] Allergy (Severe, Verified 06/01/23 10:48) MOUTH SWELLING hydrochlorothiazide [Hydrochlorothiazide] Allergy (Intermediate, Verified 06/01/23 10:48) DROP IN BLOOD PRESSURE Penicillins [PENICILLINS] Allergy (Intermediate, Verified 06/01/23 10:48) ITCHING caffeine [Caffeine] Allergy (Mild, Verified 06/01/23 10:48) NERVOUSNESS lisinopril [Lisinopril] Allergy (Mild, Verified 06/01/23 10:48) CHANGES IN BLOOD PRESSURE ranitidine [RANITIDINE] Allergy (Mild, Verified 06/01/23 10:48) HEADACHE amlodipine [AMLODIPINE] Allergy (Unknown, Verified 06/01/23 10:48) UNKNOWN amoxicillin Allergy (Unknown, Verified 06/01/23 10:48) itching, severe with rash diclofenac Allergy (Unknown, Verified 06/01/23 10:48) Unknown escitalopram Allergy (Unknown, Verified 06/01/23 10:48) abdominal discomfort, drowsiness esomeprazole [Nexium] Allergy (Unknown, Verified 06/01/23 10:48) Unknown isosorbide [ISOSORBIDE] Allergy (Unknown, Verified 06/01/23 10:48) UNKNOWN lidocaine [Lidoderm] Allergy (Unknown, Verified 06/01/23 10:48) weakness mirtazapine Allergy (Unknown, Verified 06/01/23 10:48) Unknown nystatin Allergy (Unknown, Verified 06/01/23 10:48) rash sertraline [SERTRALINE] Allergy (Unknown, Verified 06/01/23 10:48) UNKNOWN dexlansoprazole [From DEXILANT] Adverse Reaction (Severe, Verified 06/01/23 10:48) AGITATION hydrocortisone [From Cortizone-10] Adverse Reaction (Mild, Verified 06/01/23 10:48) RAISES BLOOD SUGAR topiramate [From TOPAMAX] Adverse Reaction (Unknown, Verified 06/01/23 10:48) AGITATION From PLAVIX Allergy (Unknown, Uncoded 06/01/23 10:48) PT UNSURE OF REACTION Medical tape Allergy (Unknown, Uncoded 06/01/23 10:48) Rash Medication List - Last Reconciled 06/01/23 by Boaz Astorga MD acetaminophen (Tylenol Extra Strength) 500 mg PO .TWICE A DAY PRN alprazolam 0.5 mg PO BID PRN alum-mag hydroxide-simeth 200-200-20 mg/5 mL 10 mL PO ONCE PRN blood sugar diagnostic (Znode Ultra Test strips) USE DIRECTED TO TEST BLOOD SUGAR FOUR TIMES DAILY buspirone 7.5 mg PO DAILY carvedilol 6.25 mg PO BID cholecalciferol (vitamin D3) (Vitamin D3) 25 mcg PO DAILY ciclopirox 0.77% 1 applic topical BID clotrimazole-betamethasone 1-0.05 % 1 appl topical BID PRN dulaglutide 1.5 mg (0.5 mL) subcut QWEEK 4 weeks furosemide 10 mg PO QAM lancets (Znode Delica Plus Lancet) USE FOUR TIMES DAILY lidocaine 5% 1 patch topical DAILY losartan 25 mg PO DAILY 90 days metformin 250 mg (1/2 x 500 mg) PO BID 90 days multivit with min-folic acid 200 mcg (Adult Multivitamin Gummies) tabs PO nystatin 1 appl topical TID PRN 14 days pantoprazole 40 mg PO DAILY polyethylene glycol 3350 17 grams PO DAILY PRN 90 days propylene glycol 0.6% (Systane Balance) 1 drp ophthalmic (eye) BID PRN rosuvastatin 40 mg PO DAILY 90 days sennosides 17.2 mg (2 x 8.6 mg) PO DAILY PRN 30 days spironolactone (Aldactone) 25 mg PO BEDTIME 30 days Tobacco use date assessed: 06/01/23 Fall risk assessment: 1 Fall in past year Last assessed Fall Risk: 06/01/23 Dental Screening Dental Screen Date: 06/01/23 Did you have a dental visit in the last 12 months?: Yes Did you have a dental problem in the last 6 months where you did not have access to dental care?: No Was dental information given to patient?: Patient has dentist HPI CKD stage 4, HARRIET, DM, hyperlipidemia, HTN HPI Details Patient comes in today for her follow up visit States that she feels okay She reportedly lost her balance and fell on her left side a couple of weeks ago and sustained a faint, non-displaced fracture of her left 7th rib States that she is still experiencing recurrent sharp pains over her left chest wall area presently Also still has some bruising and pain on her left lower extremity She denies any headaches or dizziness Denies any chest pains, no increased SOB No nausea/vomiting, no abdominal pain No change in bowel habits noted Needs her Rosuvastatin Rx refilled today Had her follow up labs done a few days ago - to discuss her results [facility] Medical History Anxiety Benign essential hypertension Cardiomyopathy Chronic kidney disease, stage 4 (severe) Conjunctival hemorrhage of right eye COVID-19 Depression GERD (gastroesophageal reflux disease) Hyperkalemia Left bundle branch block Nonischemic cardiomyopathy Obesity Obesity (BMI 30-39.9) Pneumonia due to COVID-19 virus Pure hypercholesterolemia HARRIET (renal artery stenosis) Renal artery stenosis Skin abrasion Stasis edema of both lower extremities Type 2 diabetes mellitus Urinary incontinence Vertigo Surgical History History of cataract surgery History of cholecystectomy History of lumpectomy of left breast Hx of colonoscopy Hx of myomectomy Family History Father CVD (cardiovascular disease) Myocardial infarction Mother Myocardial infarction CVD (cardiovascular disease) Brother Myocardial infarction Family/Other FH: prostate cancer Social History Household Members: None Housing: Apartment Do you presently have visiting nurse or other home services: No Alcohol intake: never Patient Tobacco Use Status: Former Tobacco user e-Cigarette/Vaping Use: Never Used Second Hand Smoke Exposure: No Advance Directives Date on File: 08/06/21 service: No Current occupational status: disabled Cognitive needs: No Hearing needs: No Vision needs: Yes Questionnaire PHQ-9 Over the last 2 weeks, how often have you been bothered by any of the following problems? 1. Little interest or pleasure in doing things: not at all 2. Feeling down, depressed, or hopeless: not at all 3. Trouble falling or staying asleep, or sleeping too much: not at all 4. Feeling tired or having little energy: not at all 5. Poor appetite or overeating: not at all 6. Feeling bad about yourself - or that you are a failure or have let yourself or your family down: not at all 7. Trouble concentrating on things, such as reading the newspaper or watching television: not at all 8. Moving or speaking so slowly that other people could have noticed. Or the opposite - being so fidgety or restless that you have been moving around a lot more than usual: not at all 9. Thoughts that you would be better off or of hurting yourself in some way: not at all Total score: 0 Depression Screening Interpretation: Negative 53702 - PHQ-9 Billing: Yes Source: Developed by Drs. Kayden Gonzalez, Alka Silver, Harjit Rush and colleagues, with an educational vlad from [employer]. Thrive Questionnaire Date Thrive assessed: 06/01/23 I am a: Patient What is your living situation today?: I have a steady place to live Within the past 12 months, did the food you bought not last and you didn't have the money to get more?: Never true Within the past 12 months, did you worry whether your food would run out before you got money to buy more?: Never true Do you have trouble paying for medicines?: No Do you have trouble getting transportation to medical appointments?: No Do you have trouble paying your heating and electricity bill?: No Do you have trouble taking care of your child, family member or friend?: No Do you have trouble with day-to-day activities such as bathing, preparing meals, shopping, managing finances, etc.?: No Are you currently unemployed and looking for a job?: No Are you interested in more education?: No Please select the resources that you would like help with: None Currently or been in a relationship where the following occur: no concerns reported AUDIT C Alcohol Use Questionnaire (AUDIT-C) 1. How often do you have a drink containing alcohol?: Never 3. How often do you have six or more drinks on one occasion?: Never Total Score: 0 Score Reviewed/Action Taken: Yes VIKRAM-7 AMB Questionnaire VIKRAM-7 Date VIKRAM - 7 assessed: 06/01/23 Feeling nervous, anxious, or on edge: 0 = Not at all Not being able to stop or control worryin = Not at all Worrying too much about different things: 0 = Not at all Trouble relaxin = Not at all Being so restless that it is hard to sit still: 0 = Not at all Becoming easily annoyed or irritable: 0 = Not at all Feeling afraid as if something awful might happen: 0 = Not at all Total VIKRAM-7 score (0-4 normal; 5-9 mild; 10-14 moderate; 15-21 severe): 0 Source: Developed by Drs. Kayden Gonzalez, Alka Silver, Harjit Rush and colleagues, with an educational vlad from [employer]. Review of Systems Const Denies chills, Reports fatigue, Denies fever(s) and Denies headache(s) ENT Denies dysphagia, Denies dizziness, Denies otalgia, Denies headache(s), Denies neck pain, Denies sinus pain and Denies sore throat Card Reports chest pain (recurrent sharp pains over the left chest wall - has nondisplaced rib Fx), Denies palpitations and Denies dyspnea Resp Denies chest congestion, Denies cough and Denies dyspnea GI Denies abdominal pain, Denies constipation, Denies dysphagia, Denies heartburn, Denies diarrhea, Denies nausea and Denies vomiting Denies difficulty voiding, Denies nocturia, Denies dysuria and Reports urinary incontinence Musc Details: (+) pain and bruising over the left lower extremity Denies neck pain Skin/Breast Denies rash Neuro Denies dizziness and Denies headache(s) Psych Reports anxiety Endo Reports fatigue and Denies palpitations Physical exam (Primary Care) Vital Signs: Last Vital Signs Pulse 70 06/01/23 10:21 BP 126/80 06/01/23 10:21 Pulse Ox 99 06/01/23 10:21 Oxygen Delivery Method Room Air 06/01/23 10:21 BMI result Body Mass Index 32.6 Tobacco/Smoking Status: Tobacco use Status Tobacco use date assessed 06/01/23 06/01/23 10:29 Patient Tobacco Use Status Former Tobacco user 06/01/23 10:29 e-Cigarette/Vaping Use Never Used 06/01/23 10:29 PHQ-9: PHQ-9 Score PHQ-9: Total score 0 06/01/23 10:29 Depression Screening Interpretation: Negative Thrive Assessment: Date of Thrive Assessment Date Thrive assessed 06/01/23 06/01/23 10:29 Currently or been in a relationship where the following occur: no concerns reported Const General: no acute distress and alert HENMT Ears: TM's normal bilaterally and EAC's normal Throat: Yes posterior oropharynx normal and Yes tonsils normal (no TP congestion noted) Neck Neck: Yes no lymphadenopathy and Yes supple Chest Chest palpation & inspection: localized rib tenderness with anteroposterior compression (over the left lower anterolateral chest wall) Resp Auscultation: clear to auscultation bilaterally, no rales and no wheezes Cardio Rate: regular rate Rhythm: regular rhythm Heart sounds: no murmurs GI Palpation (GI): Soft to palpation and nontender Auscultation: normal bowel sounds Skin Other: (+) scattered bruising (ecchymoses) and tenderness over the left lower extremity, mostly over the distal thigh and distal lower leg Extrem General: Yes no clubbing, cyanosis or edema Results Reviewed Results Reviewed: Laboratory Tests 05/28/23 05/28/23 05/28/23 09:37 09:37 09:37 WBC 6.7 Hgb 10.5 L Hct 33.0 L Plt Count 239 Sodium 130 L Potassium 4.9 Creatinine 2.29 H Estimated GFR 21 Fasting Glucose 139 H Hemoglobin A1c % 8.1 Calcium 10.3 H Magnesium 2.2 Total Bilirubin 1.3 H AST 42 H ALT 40 H Triglycerides 86 Cholesterol 130 LDL Cholesterol, Calc 63 HDL Cholesterol 50 25-OH Vitamin D Total 44.0 TSH 3.52 Free T4 0.99 Urine pH Ur Specific [place] Urine Protein Urine Glucose (UA) Urine Blood Microalb/Creat Ratio 05/29/23 05/29/23 05:00 05:00 WBC Hgb Hct Plt Count Sodium Potassium Creatinine Estimated GFR Fasting Glucose Hemoglobin A1c % Calcium Magnesium Total Bilirubin AST ALT Triglycerides Cholesterol LDL Cholesterol, Calc HDL Cholesterol 25-OH Vitamin D Total TSH Free T4 Urine pH 6.5 Ur Specific [place] <= 1.005 Urine Protein 30 (1+) H Urine Glucose (UA) Negative Urine Blood Moderate (2+) H Microalb/Creat Ratio 90.7 Assessment and Plan Assessment & Plan (1) Benign essential hypertension: Code(s): I10 - Essential (primary) hypertension Plan: Reinforced low sodium diet - goal is systolic BP of at least 130 to 140 mm or less Continue Carvedilol 6.25 mg BID and Spironolactone 25 mg QD; is also on Furosemide 10 mg QD Losartan has been HELD previously - advised to continue holding off on this and NOT start back on Rx unless she is instructed to do so Follow up with cardiology as scheduled (2) Renal artery stenosis: Code(s): I70.1 - Atherosclerosis of renal artery Plan: Has left HARRIET (seen on renal artery doppler) and will be considered for renal angioplasty if necessary BP has improved a lot with the addition of Spironolactone Will continue to observe her for now Follow up with nephrology (Dr. Madrigal) as scheduled - was just seen a couple of weeks ago on 05/16/23 and advised to continue on current meds with no changes (3) Cardiomyopathy: Code(s): I42.9 - Cardiomyopathy, unspecified Qualifiers: Cardiomyopathy type: unspecified Qualified Code(s): I42.9 - Cardiomyopathy, unspecified Plan: Continue Carvedilol 6.25 mg BID Patient had a stress test and nuclear MIBI done at [facility] [place] a couple of years ago - both tests came back normal BNP also came back normal when checked previously Follow up with cardiology as scheduled (4) Pure hypercholesterolemia: Code(s): E78.00 - Pure hypercholesterolemia, unspecified Plan: Results of her labs done a few days ago reviewed and discussed with patient Reinforced low cholesterol diet Continue Atorvastatin 80 mg QD Will recheck her labs in 3 months for follow up (5) Type 2 diabetes mellitus: Code(s): E11.9 - Type 2 diabetes mellitus without complications Qualifiers: 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 residential insulin use: without termite control servicer use 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 complication status: with kidney complications 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 complication detail: with chronic kidney disease Chronic kidney disease stage: stage 4 (severe) Qualified Code(s): E11.22 - Type 2 diabetes mellitus with diabetic chronic kidney disease; N18.4 - Chronic kidney disease, stage 4 (severe) Plan: HgbA1c was at 8.1% on her labs done a few days ago; was previously at 8.0% a few months ago - goal is <7.0% Reinforced diabetic diet Continue Metformin ER 500 mg QD - dose was lowered from BID previously due to her advancing renal disease Januvia was also previously discontinued due to recurrent hypoglycemia Her Trulicity was increased to 1.5 mg SQ once a week at her last visit and she has been tolerating this so far with no problems As her HgbA1c is still inadequately controlled, will try adding Glimepiride 1 mg Q AM - patient is instructed to stop the Rx and call KELLY if she starts to experience any unusual symptoms once she starts taking this new Rx (6) Chronic kidney disease, stage 4 (severe): Code(s): N18.4 - Chronic kidney disease, stage 4 (severe) Plan: Patient's serum creatinine and GFR/renal function appear stable on her recent labs Will continue to monitor GFR and serum creatinine closely Follow up with nephrology (Dr. Madrigal) as scheduled (7) Elevated TSH: Code(s): R79.89 - Other specified abnormal findings of blood chemistry Plan: TSH was slightly elevated previously but is now normal on her recent labs; free T4 and T3 levels were normal and TPO Ab level was high when previously checked, suggesting possible Pb's Patient still appears clinically euthyroid at present so no intervention is indicated at this time Will continue to monitor her TFTs regularly (8) Anxiety: Code(s): F41.9 - Anxiety disorder, unspecified Plan: Continue Buspirone 7.5 mg QD and Alprazolam 0.5 mg BID PRN Follow up with psychiatry as scheduled (9) Depression: Code(s): F32.9 - Major depressive disorder, single episode, unspecified Qualifiers: Depression Type: unspecified Qualified Code(s): F32.9 - Major depressive disorder, single episode, unspecified Plan: Follow up with psychiatry as scheduled - patient goes to [facility] (10) Obesity (BMI 30-39.9): Code(s): E66.9 - Obesity, unspecified Plan: Reinforced diet; exercise and weight loss are unrealistic given patient's multiple comorbidities and limited activity tolerance as well as her gait instability - fell recently and reportedly sustained a faint, non-displaced fracture of her left 7th rib Plan Follow up in 3 months Orders: Orders Complete Blood Count Auto Diff 3 Months I10 - Essential (primary) hypertension Comprehensive [place]. Panel Fast 3 Months E78.00 - Pure hypercholesterolemia, unspecified Lipid Panel 3 Months E78.00 - Pure hypercholesterolemia, unspecified Hemoglobin A1c 3 Months E11.9 - Type 2 diabetes mellitus without complications Microalbumin, Random (w Creat) 3 Months E11.9 - Type 2 diabetes mellitus without complications Thyroid Stimulating Hormone 3 Months R79.89 - Other specified abnormal findings of blood chemistry Free T4 (Free Thyroxine) 3 Months R79.89 - Other specified abnormal findings of blood chemistry Vitamin D 25-OH Total 3 Months E55.9 - Vitamin D deficiency, unspecified Vitamin B12 and Folate 3 Months E53.8 - Deficiency of other specified B group vitamins UA CC w/rflx Micro + Cult 3 Months R30.0 - Dysuria Medications: New glimepiride administer with breakfast 1 mg PO QAM 30 days 30 tabs 3RF Refilled rosuvastatin 40 mg PO DAILY 90 days 90 tabs 1RF Coding Level of Care Code Est Pt Level 4 (83892) Diagnoses Benign essential hypertension I10 Renal artery stenosis I70.1 Cardiomyopathy I42.9 Cardiomyopathy type: unspecified Pure hypercholesterolemia E78.00 Type 2 diabetes mellitus E11.22; N18.4 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 termite control servicer insulin use: without residential use 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 complication status: with kidney complications 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 complication detail: with chronic kidney disease Chronic kidney disease stage: stage 4 (severe) Chronic kidney disease, stage 4 (severe) N18.4 Elevated TSH R79.89 Anxiety F41.9 Depression F32.9 Depression Type: unspecified Obesity (BMI 30-39.9) E66.9
[2023-06-01 10:21] VITALS: BP 126/80; PULSE 70; O2SAT 99; BMI 32.6
== END 2023-06-01 11:23 | disposition home or self-care (01) ==
PROVIDERS: PCP Internal Medicine; Visit Provider Internal Medicine
DX: I12.9 Hypertensive chronic kidney disease with stage 1 through stage 4 chronic kidney disease, or unspecified chronic kidney disease (principal); E11.22 Type 2 diabetes mellitus with diabetic chronic kidney disease; N18.4 Chronic kidney disease, stage 4 (severe); I70.1 Atherosclerosis of renal artery; I42.9 Cardiomyopathy, unspecified; E78.00 Pure hypercholesterolemia, unspecified; R79.89 Other specified abnormal findings of blood chemistry; F41.9 Anxiety disorder, unspecified; F32.9 Major depressive disorder, single episode, unspecified; E66.9 Obesity, unspecified
CPT/HCPCS: 99214

== ENCOUNTER 2023-06-15 07:12 | Outpatient (AMB) | payer OTHER, SELFPAY ==
--- NOTE | 2023-06-15 07:13 | MHC.PC.OV ---
Intake Visit Reasons: weakness Allergies aspirin [Aspirin] Allergy (Severe, Verified 06/15/23 07:22) MOUTH SWELLING hydrochlorothiazide [Hydrochlorothiazide] Allergy (Intermediate, Verified 06/15/23 07:22) DROP IN BLOOD PRESSURE Penicillins [PENICILLINS] Allergy (Intermediate, Verified 06/15/23 07:22) ITCHING caffeine [Caffeine] Allergy (Mild, Verified 06/15/23 07:22) NERVOUSNESS lisinopril [Lisinopril] Allergy (Mild, Verified 06/15/23 07:22) CHANGES IN BLOOD PRESSURE ranitidine [RANITIDINE] Allergy (Mild, Verified 06/15/23 07:22) HEADACHE amlodipine [AMLODIPINE] Allergy (Unknown, Verified 06/15/23 07:22) UNKNOWN amoxicillin Allergy (Unknown, Verified 06/15/23 07:22) itching, severe with rash diclofenac Allergy (Unknown, Verified 06/15/23 07:22) Unknown escitalopram Allergy (Unknown, Verified 06/15/23 07:22) abdominal discomfort, drowsiness esomeprazole [Nexium] Allergy (Unknown, Verified 06/15/23 07:22) Unknown isosorbide [ISOSORBIDE] Allergy (Unknown, Verified 06/15/23 07:22) UNKNOWN lidocaine [Lidoderm] Allergy (Unknown, Verified 06/15/23 07:22) weakness mirtazapine Allergy (Unknown, Verified 06/15/23 07:22) Unknown nystatin Allergy (Unknown, Verified 06/15/23 07:22) rash sertraline [SERTRALINE] Allergy (Unknown, Verified 06/15/23 07:22) UNKNOWN dexlansoprazole [From DEXILANT] Adverse Reaction (Severe, Verified 06/15/23 07:22) AGITATION hydrocortisone [From Cortizone-10] Adverse Reaction (Mild, Verified 06/15/23 07:22) RAISES BLOOD SUGAR topiramate [From TOPAMAX] Adverse Reaction (Unknown, Verified 06/15/23 07:22) AGITATION From PLAVIX Allergy (Unknown, Uncoded 06/15/23 07:13) PT UNSURE OF REACTION Medical tape Allergy (Unknown, Uncoded 06/15/23 07:13) Rash Tobacco use date assessed: 06/01/23 Fall risk assessment: No Falls in past year Last assessed Fall Risk: 06/15/23 Dental Screening Dental Screen Date: 06/15/23 Did you have a dental visit in the last 12 months?: Yes Did you have a dental problem in the last 6 months where you did not have access to dental care?: No Was dental information given to patient?: Patient has dentist HPI HPI Comments History of Present Illness Details 77-year-old female past medical history significant for hypertension, hypercholesteremia, renal artery stenosis, cardiomyopathy, anxiety, depression, GERD, type 2 diabetes mellitus, CKD stage IV. Patient of Dr. Astorga last seen 2 weeks ago. Patient presents today for a telehealth appointment. Patient reports low blood sugar readings at home since starting glimepiride 1 mg daily. Patient reports that she has been getting readings 66, 82 and 109 at various times a day. Patient reports that she feels shaky and experiencing sweating. Patient treating her hypoglycemic event eating Abhi crackers and drinking orange juice. Patient reports upcoming appointment to establish care with endocrinology August 27. Patient also reports fell a few weeks ago when she does have about a 3/4 size redness on left lower leg. Patient advised if she develops any increase redness, swelling, pain or drainage from this site to call office to follow-up for possible cellulitis. Patient denies any fever, chills. Offered to cover patient with antibiotics by mouth for possible developing cellulitis. However patient declines at this time. States she will call to schedule follow-up if needed. [facility] Medical History Anxiety Benign essential hypertension Cardiomyopathy Chronic kidney disease, stage 4 (severe) Conjunctival hemorrhage of right eye COVID-19 Depression GERD (gastroesophageal reflux disease) Hyperkalemia Left bundle branch block Nonischemic cardiomyopathy Obesity Obesity (BMI 30-39.9) Pneumonia due to COVID-19 virus Pure hypercholesterolemia HARRIET (renal artery stenosis) Renal artery stenosis Skin abrasion Stasis edema of both lower extremities Type 2 diabetes mellitus Urinary incontinence Vertigo Surgical History History of cataract surgery History of cholecystectomy History of lumpectomy of left breast Hx of colonoscopy Hx of myomectomy Family History Father CVD (cardiovascular disease) Myocardial infarction Mother Myocardial infarction CVD (cardiovascular disease) Brother Myocardial infarction Family/Other FH: prostate cancer Social History Household Members: None Housing: Apartment Do you presently have visiting nurse or other home services: No Alcohol intake: never Patient Tobacco Use Status: Former Tobacco user Tobacco use type: Cigarette e-Cigarette/Vaping Use: Never Used Second Hand Smoke Exposure: No Advance Directives Date on File: 08/06/21 service: No Current occupational status: disabled Cognitive needs: No Hearing needs: No Vision needs: Yes Questionnaire PHQ-9 Over the last 2 weeks, how often have you been bothered by any of the following problems? 1. Little interest or pleasure in doing things: not at all 2. Feeling down, depressed, or hopeless: not at all 3. Trouble falling or staying asleep, or sleeping too much: not at all 4. Feeling tired or having little energy: not at all 5. Poor appetite or overeating: not at all 6. Feeling bad about yourself - or that you are a failure or have let yourself or your family down: not at all 7. Trouble concentrating on things, such as reading the newspaper or watching television: not at all 8. Moving or speaking so slowly that other people could have noticed. Or the opposite - being so fidgety or restless that you have been moving around a lot more than usual: not at all 9. Thoughts that you would be better off or of hurting yourself in some way: not at all Total score: 0 Depression Screening Interpretation: Negative 48279 - PHQ-9 Billing: Yes Source: Developed by Drs. Kayden Gonzalez, Alka Silver, Harjit Rush and colleagues, with an educational vlad from [employer] [place]. Thrive Questionnaire Date Thrive assessed: 06/01/23 AUDIT C Alcohol Use Questionnaire (AUDIT-C) 1. How often do you have a drink containing alcohol?: Never 3. How often do you have six or more drinks on one occasion?: Never Total Score: 0 Score Reviewed/Action Taken: Yes VIKRAM-7 AMB Questionnaire VIKRAM-7 Date VIKRAM - 7 assessed: 06/01/23 Source: Developed by Drs. Kayden Gonzalez, Alka Silver, Harjit Rush and colleagues, with an educational vlad from [employer] [place]. Review of Systems Const Denies chills and Denies fever(s) Card Reports no additional complaints Resp Reports no additional complaints Endo Reports other (Shaking and sweating related to Hypoglycemia ) Physical exam (Primary Care) Vital Signs: unable to complete; Telehealth exam Tobacco/Smoking Status: Tobacco use Status Tobacco use date assessed 06/01/23 06/15/23 07:15 Patient Tobacco Use Status Former Tobacco user 06/15/23 07:15 Tobacco use type Cigarette 06/15/23 07:15 e-Cigarette/Vaping Use Never Used 06/15/23 07:15 PHQ-9: PHQ-9 Score PHQ-9: Total score 0 06/15/23 07:20 Depression Screening Interpretation: Negative Thrive Assessment: Date of Thrive Assessment Date Thrive assessed 06/01/23 06/15/23 07:15 Telehealth Telehealth Location of provider rendering services: practice address Location of patient: address on file Patient Identification confirmed using: Name, : Yes Telehealth method: voice only Patient verbally consented to treatment: Yes Patient verbally consented to billing insurance company: Yes Patient informed of any privacy concerns related to visit: Yes Minutes spent on Phone/Video with Pt.: 23 Assessment and Plan Assessment & Plan (1) Skin abrasion: Code(s): T14.8XXA - Other injury of unspecified body region, initial encounter Plan: Patient declined p.o. antibiotics to cover for possible developing cellulitis. Patient advised to call office in follow-up if she develops any increased pain, swelling, redness or warmth or drainage to the wound. Patient agreeable to plan of care. (2) Type 2 diabetes mellitus: Code(s): E11.9 - Type 2 diabetes mellitus without complications Qualifiers: 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 senior care insulin use: without tank terminal gauger use 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 complication status: with kidney complications 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 complication detail: with chronic kidney disease Chronic kidney disease stage: stage 4 (severe) Qualified Code(s): E11.22 - Type 2 diabetes mellitus with diabetic chronic kidney disease; N18.4 - Chronic kidney disease, stage 4 (severe) Plan: Given hypoglycemic events will discontinue glimepiride 1 mg Patient advised to continue on metformin, Gloria Patient has upcoming appointment with endocrinology August 27. A1c 8.1% (3) Benign essential hypertension: Code(s): I10 - Essential (primary) hypertension Plan: Continue on spironolactone, losartan, carvedilol and furosemide. (4) Cardiomyopathy: Code(s): I42.9 - Cardiomyopathy, unspecified Qualifiers: Cardiomyopathy type: unspecified Qualified Code(s): I42.9 - Cardiomyopathy, unspecified Plan Keep scheduled follow up with oco or follow up sooner if needed. Medications: Discontinued glimepiride administer with breakfast Discontinued Reason: Doctor's Order 1 mg PO QAM 30 days 30 tabs 3RF Coding Level of Care Code Tele Est Pt Level 4 (11615) Diagnoses Skin abrasion T14.8XXA Type 2 diabetes mellitus E11.22; N18.4 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 senior care insulin use: without senior care use 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 complication status: with kidney complications 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 complication detail: with chronic kidney disease Chronic kidney disease stage: stage 4 (severe) Benign essential hypertension I10 Cardiomyopathy I42.9 Cardiomyopathy type: unspecified
== END 2023-06-15 07:37 | disposition home or self-care (01) ==
LOC: HO.HMGH 07:12
PROVIDERS: PCP Internal Medicine; Visit Provider Nurse Practitioner Family
DX: T14.8XXA Other injury of unspecified body region, initial encounter (principal); E11.22 Type 2 diabetes mellitus with diabetic chronic kidney disease; I12.9 Hypertensive chronic kidney disease with stage 1 through stage 4 chronic kidney disease, or unspecified chronic kidney disease; N18.4 Chronic kidney disease, stage 4 (severe); I42.9 Cardiomyopathy, unspecified
CPT/HCPCS: 99214

== ENCOUNTER 2023-06-29 11:12 | Outpatient (AMB) | payer OTHER, SELFPAY ==
--- NOTE | 2023-06-29 11:19 | MHC.OFFVIS ---
Intake Vital Signs 06/29/23 11:20 Height 5 ft Weight 166 lb 3.657 oz BMI 32.5 Intake Visit Reasons: 6 month fu Intake Note: Patient is present for follow up Reports no new medications Complaints: None States: Patient states that she has been okay no complaints. Allergies aspirin [Aspirin] Allergy (Severe, Verified 06/29/23 11:26) MOUTH SWELLING hydrochlorothiazide [Hydrochlorothiazide] Allergy (Intermediate, Verified 06/29/23 11:26) DROP IN BLOOD PRESSURE Penicillins [PENICILLINS] Allergy (Intermediate, Verified 06/29/23 11:26) ITCHING caffeine [Caffeine] Allergy (Mild, Verified 06/29/23 11:26) NERVOUSNESS lisinopril [Lisinopril] Allergy (Mild, Verified 06/29/23 11:) CHANGES IN BLOOD PRESSURE ranitidine [RANITIDINE] Allergy (Mild, Verified 06/29/23 11:) HEADACHE amlodipine [AMLODIPINE] Allergy (Unknown, Verified 06/29/23 11:) UNKNOWN amoxicillin Allergy (Unknown, Verified 06/29/23 11:) itching, severe with rash diclofenac Allergy (Unknown, Verified 06/29/23 11:) Unknown escitalopram Allergy (Unknown, Verified 06/29/23 11:) abdominal discomfort, drowsiness esomeprazole [Nexium] Allergy (Unknown, Verified 06/29/23 11:) Unknown isosorbide [ISOSORBIDE] Allergy (Unknown, Verified 06/29/23 11:) UNKNOWN lidocaine [Lidoderm] Allergy (Unknown, Verified 06/29/23 11:) weakness mirtazapine Allergy (Unknown, Verified 06/29/23 11:) Unknown nystatin Allergy (Unknown, Verified 06/29/23 11:) rash sertraline [SERTRALINE] Allergy (Unknown, Verified 06/29/23 11:) UNKNOWN dexlansoprazole [From DEXILANT] Adverse Reaction (Severe, Verified 06/29/23 11:) AGITATION hydrocortisone [From Cortizone-10] Adverse Reaction (Mild, Verified 06/29/23 11:26) RAISES BLOOD SUGAR topiramate [From TOPAMAX] Adverse Reaction (Unknown, Verified 06/29/23 11:) AGITATION From PLAVIX Allergy (Unknown, Uncoded 06/29/23 11:26) PT UNSURE OF REACTION Medical tape Allergy (Unknown, Uncoded 06/29/23 11:26) Rash HPI 6 month fu HPI Details LAST VISIT GERD (gastroesophageal reflux disease) Continue current treatment with pantoprazole. Discussed with patient the importance of avoiding dietary triggers a late night snacking. Staying upright from minimal 3 hours after meals discussed with patient. Chronic idiopathic constipation Continue Senokot 2 tablets in the evening. Patient was also encouraged to take MiraLax in the morning if she is able to tolerate. I will see patient in 6 months, sooner on as needed basis. Patient is agreeable to this plan and verbalizes understanding of instructions. She was given the opportunity to ask questions and all questions answered TODAY'S VISIT Patient is here today for follow-up. Patient reports that she has been doing quite well. Reports that her bowels are moving much better now that she takes 2 Senokot every evening. Patient denies melena, hematochezia, unintentional weight loss or ribbon like stools. Patient had Cologuard in June of 2021 and it was negative. She will be due for Cologuard again next year. Patient was unable to go for colonoscopy. Patient had low EF in the beginning of 2020. Repeat echo last results from December of 2022 showed improved LV function 40-45 % EF. Patient reports that generally she has been feeling better. Denies any dyspepsia, dysphagia or odynophagia. Occasional acid reflux controlled with pantoprazole for the most part. Patient reports that she is also changing her diet. Patient lost 12 lb since December of this year. Patient reports that she had to go to ED in April. Patient states that she tripped over a broom and fell on to box is laying on the floor. Patient hit her left side of her ribcage. States that she is feeling better now healing well. [facility] Medical History Chronic kidney disease, stage 4 (severe) Type 2 diabetes mellitus Obesity Skin abrasion HARRIET (renal artery stenosis) Left bundle branch block Nonischemic cardiomyopathy Urinary incontinence GERD (gastroesophageal reflux disease) COVID-19 Pneumonia due to COVID-19 virus Vertigo Obesity (BMI 30-39.9) Depression Anxiety Stasis edema of both lower extremities Cardiomyopathy Pure hypercholesterolemia Hyperkalemia Renal artery stenosis Benign essential hypertension Conjunctival hemorrhage of right eye Surgical History Hx of colonoscopy Hx of myomectomy History of cataract surgery History of lumpectomy of left breast History of cholecystectomy Family History Father CVD (cardiovascular disease) Myocardial infarction Mother Myocardial infarction CVD (cardiovascular disease) Brother Myocardial infarction Family/Other FH: prostate cancer Social History Household Members: None Housing: Apartment Do you presently have visiting nurse or other home services: No Alcohol intake: never Patient Tobacco Use Status: Former Tobacco user Tobacco use type: Cigarette e-Cigarette/Vaping Use: Never Used Second Hand Smoke Exposure: No Advance Directives Date on File: 08/06/21 service: No Current occupational status: disabled Cognitive needs: No Hearing needs: No Vision needs: Yes Review of Systems Const Denies weight gain and Denies weight loss ENT Reports no additional complaints, Denies dysphagia and Denies odynophagia Card Reports no additional complaints Resp Reports no additional complaints GI Denies abdominal pain, Denies belching, Denies melena, Denies bloating, Denies change in bowel habits, Reports constipation (Occasional), Denies dysphagia, Denies excessive flatus, Denies dyspepsia, Denies heartburn, Denies diarrhea, Denies loose stools, Denies nausea, Denies odynophagia and Denies vomiting Reports no additional complaints Musc Reports no additional complaints Neuro Reports no additional complaints Psych Reports no additional complaints Endo Reports no additional complaints Physical Exam Vital Signs: BMI result Body Mass Index 32.5 Const General: healthy appearing, no acute distress and well developed Nutritional Appearance: obese Orientation/consciousness: patient oriented x3 HEENT Head: Yes normal to inspection, Yes normocephalic and Yes atraumatic Face and sinus: Yes normal facial exam Mouth: Normal oral and palatal mucosa present Throat: Yes posterior oropharynx normal, Yes tonsils normal and Yes uvula midline Eyes General: appearance normal, both eyes and all related structures Neck Neck: Yes normal visual inspection, Yes full ROM and Yes trachea midline Thyroid: Thyroid normal Resp Effort & Inspection: normal respiratory effort, able to speak in complete sentences, no tracheal deviation and symmetric chest movement Auscultation: clear to auscultation bilaterally Cardio Rate: regular rate Heart sounds: S1 normal heart sound present and S2 normal heart sound present GI Inspection: Yes normal to inspection, No distended and Yes obesity Palpation (GI): Soft to palpation, not firm, nontender and No hepatosplenomegaly present Auscultation: normal bowel sounds General: Yes no CVA tenderness Back/Spine/Pelvis Back: no CVA tenderness Skin General skin exam: elasticity normal, turgor normal and dry skin Neuro General: patient oriented x3 Psych Appearance: grossly normal Mental Status: mental status grossly normal Assessment & Plan Assessment & Plan (1) GERD (gastroesophageal reflux disease): Code(s): K21.9 - Gastro-esophageal reflux disease without esophagitis Qualifiers: Esophagitis presence: esophagitis presence not specified Qualified Code(s): K21.9 - Gastro-esophageal reflux disease without esophagitis Plan: Continue pantoprazole every morning half an hour before breakfast. Continue avoiding dietary triggers and late night snacking. Staying upright for minimum 3 hours after meals discussed with patient (2) Chronic idiopathic constipation: Code(s): K59.04 - Chronic idiopathic constipation Plan: Continue MiraLax in the morning and Senokot at night time. Patient was encouraged to increase fluid intake and activity to promote better bowel motility. I will see patient in 6 months, sooner on as needed basis if patient is agreeable to this plan and verbalizes understanding of instructions. She was given the opportunity questions and all questions answered. Thank you for allowing me to participate in her care Medications: Changed From sennosides 17.2 mg (2 x 8.6 mg) PO DAILY 30 days PRN 60 tabs 1RF constipation To sennosides 17.2 mg (2 x 8.6 mg) PO DAILY 30 days 180 tabs 4RF constipation From polyethylene glycol 3350 17 grams PO DAILY 90 days PRN 100 ea 5RF constipation To polyethylene glycol 3350 17 grams PO DAILY 90 days 100 ea 5RF constipation Coding Level of Care Code Est Pt Level 3 (48744) Diagnoses Gastroesophageal reflux disease, unspecified whether esophagitis present K21.9 Esophagitis presence: esophagitis presence not specified Chronic idiopathic constipation K59.04 Time Spent (min) 25 Comment 15 minutes spent with patient and additional 10 minutes spent reviewing her
[2023-06-29 11:20] VITALS: BMI 32.5
== END 2023-06-29 11:48 | disposition home or self-care (01) ==
PROVIDERS: PCP Internal Medicine; Visit Provider Nurse Practitioner Family
DX: K21.9 Gastro-esophageal reflux disease without esophagitis (principal); K59.04 Chronic idiopathic constipation
CPT/HCPCS: 99213

== ENCOUNTER → 2023-06-29 11:12 | Outpatient (BNVA) | payer OTHER, SELFPAY | PROVIDERS: PCP Internal Medicine; Visit Provider Nurse Practitioner Family | DX: K21.9 Gastro-esophageal reflux disease without esophagitis (principal); K59.04 Chronic idiopathic constipation; Z79.899 Other long term (current) drug therapy | CPT/HCPCS: 99212 ==

== ENCOUNTER 2023-08-24 13:32 | Outpatient (AMB) | payer OTHER, SELFPAY ==
[2023-08-24 13:43] VITALS: BP 130/70; PULSE 65; BMI 31.9
--- NOTE | 2023-08-24 13:43 | HO.NEPHOV_ITS ---
Intake Vital Signs 08/24/23 13:43 Height 5 ft Weight 163 lb 4 oz BMI 31.9 BP 130/70 Blood Pressure Location Lt brachial Position Sitting Pulse 65 Pulse Source Pulse Oximeter Intake Visit Reasons: Hypertension - Confirmed Roll Grinder Required: No Accompanied by: Self / Same As Patient Allergies aspirin [Aspirin] Allergy (Severe, Verified 08/24/23 13:49) MOUTH SWELLING hydrochlorothiazide [Hydrochlorothiazide] Allergy (Intermediate, Verified 06/29/23 11:26) DROP IN BLOOD PRESSURE Penicillins [PENICILLINS] Allergy (Intermediate, Verified 06/29/23 11:26) ITCHING caffeine [Caffeine] Allergy (Mild, Verified 06/29/23 11:26) NERVOUSNESS lisinopril [Lisinopril] Allergy (Mild, Verified 06/29/23 11:) CHANGES IN BLOOD PRESSURE ranitidine [RANITIDINE] Allergy (Mild, Verified 06/29/23 11:) HEADACHE amlodipine [AMLODIPINE] Allergy (Unknown, Verified 06/29/23 11:) UNKNOWN amoxicillin Allergy (Unknown, Verified 06/29/23 11:) itching, severe with rash diclofenac Allergy (Unknown, Verified 06/29/23 11:26) Unknown escitalopram Allergy (Unknown, Verified 06/29/23 11:) abdominal discomfort, drowsiness esomeprazole [Nexium] Allergy (Unknown, Verified 06/29/23 11:) Unknown isosorbide [ISOSORBIDE] Allergy (Unknown, Verified 06/29/23 11:) UNKNOWN lidocaine [Lidoderm] Allergy (Unknown, Verified 06/29/23 11:) weakness mirtazapine Allergy (Unknown, Verified 06/29/23 11:) Unknown nystatin Allergy (Unknown, Verified 06/29/23 11:) rash sertraline [SERTRALINE] Allergy (Unknown, Verified 06/29/23 11:) UNKNOWN dexlansoprazole [From DEXILANT] Adverse Reaction (Severe, Verified 06/29/23 11:) AGITATION hydrocortisone [From Cortizone-10] Adverse Reaction (Mild, Verified 06/29/23 11:26) RAISES BLOOD SUGAR topiramate [From TOPAMAX] Adverse Reaction (Unknown, Verified 06/29/23 11:) AGITATION From PLAVIX Allergy (Unknown, Uncoded 06/29/23 11:26) PT UNSURE OF REACTION Medical tape Allergy (Unknown, Uncoded 06/29/23 11:26) Rash HPI HPI Comments History of Present Illness Details I had the privilege of seeing Alicia in follow for CKD. She is known to have DM for a long time and is under good control now. She also has hypertension. She does not take NSAID's regularly. She denies any nausea, v omiting, diarrhea, SOB, edema, PND, orthopnea, hematuria, hearing deficits. She claims to be compliant with medications. She is not on SGLT2i. She has no sinusitis, epistaxis, photosensitivity, bone pain, sore throat , hemoptysis, skin lesions or recent antibiotic intake. She denied any active complaints at the time of this office visit Assessment & Plan Assessment & Plan (1) Chronic kidney disease, stage 4 (severe): Code(s): N18.4 - Chronic kidney disease, stage 4 (severe) (2) HARRIET (renal artery stenosis): Code(s): I70.1 - Atherosclerosis of renal artery (3) Hypertension: Code(s): I10 - Essential (primary) hypertension Plan BP at goal. On statins Will need a F/U Doppler renal artery Maintain blood sugar at goal Strong candidate for Jardiance/Farxiga Follow up labs ordered Could D/C metformin when initiating SGLT2 i All questions answered; F/U given Time spent reviewing all data/encounter/documentation 46 minutes Orders: Orders Blood Urea Nitrogen 08/24/23 I10 - Essential (primary) hypertension, I70.1 - Atherosclerosis of renal artery, N18.4 - Chronic kidney disease, stage 4 (severe) Creatinine 08/24/23 I10 - Essential (primary) hypertension, I70.1 - Atherosclerosis of renal artery, N18.4 - Chronic kidney disease, stage 4 (severe) Calcium 08/24/23 I10 - Essential (primary) hypertension, I70.1 - Atherosclerosis of renal artery, N18.4 - Chronic kidney disease, stage 4 (severe) PTHI 08/24/23 I10 - Essential (primary) hypertension, I70.1 - Atherosclerosis of renal artery, N18.4 - Chronic kidney disease, stage 4 (severe) Phosphorus 08/24/23 I10 - Essential (primary) hypertension, I70.1 - Atherosclerosis of renal artery, N18.4 - Chronic kidney disease, stage 4 (severe) Electrolytes 08/24/23 I10 - Essential (primary) hypertension, I70.1 - Atherosclerosis of renal artery, N18.4 - Chronic kidney disease, stage 4 (severe) Complete Blood Count Auto Diff 08/24/23 I10 - Essential (primary) hypertension, I70.1 - Atherosclerosis of renal artery, N18.4 - Chronic kidney disease, stage 4 (severe) Coding Level of Care Code Est Pt Level 4 (28551) Diagnoses Chronic kidney disease, stage 4 (severe) N18.4 HARRIET (renal artery stenosis) I70.1 Hypertension I10 FOR[facility]LY [facility], [facility] Medical History (Updated 08/24/23 @ 14:06 by Michael Madrigal MD) Chronic kidney disease, stage 4 (severe) Type 2 diabetes mellitus Obesity Skin abrasion HARRIET (renal artery stenosis) Left bundle branch block Nonischemic cardiomyopathy Urinary incontinence GERD (gastroesophageal reflux disease) COVID-19 Pneumonia due to COVID-19 virus Vertigo Obesity (BMI 30-39.9) Depression Anxiety Stasis edema of both lower extremities Cardiomyopathy Pure hypercholesterolemia Hyperkalemia Renal artery stenosis Benign essential hypertension Conjunctival hemorrhage of right eye Surgical History Hx of colonoscopy Hx of myomectomy History of cataract surgery History of lumpectomy of left breast History of cholecystectomy Family History Father CVD (cardiovascular disease) Myocardial infarction Mother Myocardial infarction CVD (cardiovascular disease) Brother Myocardial infarction Family/Other FH: prostate cancer Social History Household Members: None Housing: Apartment Do you presently have visiting nurse or other home services: No Alcohol intake: never Patient Tobacco Use Status: Former Tobacco user Tobacco use type: Cigarette e-Cigarette/Vaping Use: Never Used Second Hand Smoke Exposure: No Advance Directives Date on File: 08/06/21 service: No Current occupational status: disabled Cognitive needs: No Hearing needs: No Vision needs: Yes Results Reviewed Results Reviewed: Last Doppler renal arteries showed Asymmetrically elevated velocities in the right renal artery, most pronounced proximally in the main renal artery branch measuring greater than 2 x aortic velocity. This represents mild interval increase from the previous study. A minor branch supplying the right upper pole shows no significant stenosis. Interval decrease in velocities in the left renal artery demonstrating no hemodynamically significant stenosis.
== END 2023-08-24 14:22 | disposition home or self-care (01) ==
LOC: HO.HKA 13:32
PROVIDERS: PCP Internal Medicine; Visit Provider Internal Medicine Nephrology
DX: I12.9 Hypertensive chronic kidney disease with stage 1 through stage 4 chronic kidney disease, or unspecified chronic kidney disease (principal); N18.4 Chronic kidney disease, stage 4 (severe); I70.1 Atherosclerosis of renal artery
CPT/HCPCS: 99215

== ENCOUNTER → 2023-08-24 13:32 | Outpatient (BNVA) | payer OTHER, SELFPAY | PROVIDERS: PCP Internal Medicine; Visit Provider Internal Medicine Nephrology | DX: I12.9 Hypertensive chronic kidney disease with stage 1 through stage 4 chronic kidney disease, or unspecified chronic kidney disease (principal); N18.4 Chronic kidney disease, stage 4 (severe); I70.1 Atherosclerosis of renal artery | CPT/HCPCS: 99212 ==

== ENCOUNTER 2023-08-29 09:04 | Outpatient (REF) | payer OTHER, SELFPAY ==
[2023-08-29 09:45] LABS: MANUAL DIFF FLAG NO
[2023-08-29 10:18] LABS: Basophils Absolute Auto 0.1 X10*3/uL (0.0-0.2); Basophils Percent Auto 0.8 % (0-2); Eosinophils Absolute Auto 0.1 X10*3/uL (0.0-0.4); Eosinophils Percent Auto 1.5 % (0-4); Hematocrit 35.1 % (37.0-47.0); Hemoglobin 10.9 g/dl (12.0-16.0); Imm Gran Abs Auto 0.01 X10*3/uL (0.00-0.03); Imm Gran Pct Auto 0.2 % (0.0-0.4); Lymphocytes Absolute Auto 1.2 X10*3/uL (1.2-4.9); Lymphocytes Percent Auto 17.5 % (20-40); Mean Corpuscular HGB Conc 31.1 g/dl (31.0-35.0); Mean Corpuscular Hemoglobin 26.5 pg (27.0-33.0); Mean Corpuscular Volume 85.2 fL (80.0-98.0); Mean Platelet Volume 11.6 fL (9.4-12.3); Monocytes Absolute Auto 0.7 X10*3/uL (0.1-1.2); Monocytes Percent Auto 10.2 % (2-11); Neutrophils Absolute Auto 4.6 x10*3/uL (2.0-8.3); Neutrophils Percent Auto 69.8 % (45-73); Platelet Count 304 X10*3/uL (160-400); Red Blood Count 4.12 X10*6/uL (4.20-5.50); Red Cell Distribution Width 16.3 % (11.0-16.0); White Blood Count 6.6 X10*3/uL (4.8-10.8)
[2023-08-29 10:23] LABS: Appearance Urine Clear; Color Urine Yellow; Glucose Urine UA Negative (Negative); Leukocyte Esterase Urine Negative (Negative); Nitrite Urine Negative (Negative); PH 6.5 (5.0-9.0); Specific Gravity - Urine <= 1.005 (1.005-1.025); UMIC TRIGGER UACC YES; Urine Blood Trace (Negative); Urine Ketones Negative (Negative); Urine Protein Negative (Neg-Trace)
[2023-08-29 10:28] LABS: Bacteria Urine None Seen (None Seen); Hyaline Casts Urine 0-2 /LPF (0-2); RBC Urine 0-2 /HPF (0-2); Squamous Epithelial Cell Urine 0-2 /HPF (0-2); WBC Urine 0-5 /HPF (0-5)
[2023-08-29 10:29] LABS: Estimated Average Glucose 186 mg/dL; Hemoglobin A1c % 8.1 % (<6.0)
[2023-08-29 10:49] LABS: Alanine Aminotransferase 27 U/L (0-31); Albumin Level 4.4 g/dL (3.5-5.0); Alkaline Phosphatase 99 U/L (39-117); Anion Gap 13 (12-20); Aspartate Amino Transferase 32 U/L (5-31); Blood Urea Nitrogen 30 mg/dL (9-16); Calcium 10.4 mg/dL (8.4-10.2); Carbon Dioxide 25 mmol/L (22-29); Chloride 106 mmol/L (96-108); Cholesterol 129 mg/dL (<200); Estimated Glomerular Filt Rate 24; Glucose Fasting 118 mg/dL (60-99); HDL Cholesterol 50 mg/dL (>40); LDL Cholesterol Calculated 65 mg/dL (<100); Potassium 4.7 mmol/L (3.3-5.1); Sodium 139 mmol/L (135-145); Total Protein 7.9 g/dL (6.5-8.0); Triglycerides 72 mg/dL (<150)
[2023-08-29 10:53] LABS: Creatinine Urine 16.21 mg/dL; Microalbum/Creatinine Ratio Ur 86.3 ug/mg cr (<30)
[2023-08-29 11:07] LABS: Free T4 (Free Thyroxine) 0.96 ng/dL (0.71-1.85); Thyroid Stimulating Hormone 3.64 uIU/mL (0.32-4.0); Vitamin D 25-OH Total 42.2 ng/mL (>30)
[2023-08-29 11:14] LABS: Folate 15.8 ng/mL (> or = 4.0); Vitamin B12 836 pg/mL (200-900)
== END 2023-08-29 09:05 | disposition home or self-care (01) ==
LOC: HO.LAB 09:04
PROVIDERS: PCP Internal Medicine; Visit Provider Internal Medicine
DX: R79.89 Other specified abnormal findings of blood chemistry (principal); E55.9 Vitamin D deficiency, unspecified; E78.00 Pure hypercholesterolemia, unspecified; E11.9 Type 2 diabetes mellitus without complications; E53.8 Deficiency of other specified B group vitamins; I10 Essential (primary) hypertension
CPT/HCPCS: 36415; 80053; 80061; 81001; 82043; 82306; 82570; 82607; 82746; 83036; 84439; 84443; 85025

== ENCOUNTER 2023-09-03 10:29 | Outpatient (AMB) | payer OTHER, SELFPAY ==
--- NOTE | 2023-09-03 10:39 | MHC.PC.OV ---
Vital Signs 09/03/23 10:40 Height 5 ft Weight 161 lb 4 oz BMI 31.5 BP 142/80 H Blood Pressure Location Lt brachial Position Sitting Pulse 78 Pulse Source Pulse Oximeter Pulse Oximetry (%) 97 Oxygen Delivery Method Room Air Intake Visit Reasons: 3mth f/u Cut In Worker Required: No Accompanied by: Self / Same As Patient Allergies aspirin [Aspirin] Allergy (Severe, Verified 09/03/23 11:40) MOUTH SWELLING hydrochlorothiazide [Hydrochlorothiazide] Allergy (Intermediate, Verified 09/03/23 11:40) DROP IN BLOOD PRESSURE Penicillins [PENICILLINS] Allergy (Intermediate, Verified 09/03/23 11:40) ITCHING caffeine [Caffeine] Allergy (Mild, Verified 09/03/23 11:40) NERVOUSNESS lisinopril [Lisinopril] Allergy (Mild, Verified 09/03/23 11:40) CHANGES IN BLOOD PRESSURE ranitidine [RANITIDINE] Allergy (Mild, Verified 09/03/23 11:40) HEADACHE amlodipine [AMLODIPINE] Allergy (Unknown, Verified 09/03/23 11:40) UNKNOWN amoxicillin Allergy (Unknown, Verified 09/03/23 11:40) itching, severe with rash diclofenac Allergy (Unknown, Verified 09/03/23 11:40) Unknown escitalopram Allergy (Unknown, Verified 09/03/23 11:40) abdominal discomfort, drowsiness esomeprazole [Nexium] Allergy (Unknown, Verified 09/03/23 11:40) Unknown isosorbide [ISOSORBIDE] Allergy (Unknown, Verified 09/03/23 11:40) UNKNOWN lidocaine [Lidoderm] Allergy (Unknown, Verified 09/03/23 11:40) weakness mirtazapine Allergy (Unknown, Verified 09/03/23 11:40) Unknown nystatin Allergy (Unknown, Verified 09/03/23 11:40) rash sertraline [SERTRALINE] Allergy (Unknown, Verified 09/03/23 11:40) UNKNOWN dexlansoprazole [From DEXILANT] Adverse Reaction (Severe, Verified 09/03/23 11:40) AGITATION hydrocortisone [From Cortizone-10] Adverse Reaction (Mild, Verified 09/03/23 11:40) RAISES BLOOD SUGAR topiramate [From TOPAMAX] Adverse Reaction (Unknown, Verified 09/03/23 11:40) AGITATION From PLAVIX Allergy (Unknown, Uncoded 09/03/23 11:40) PT UNSURE OF REACTION Medical tape Allergy (Unknown, Uncoded 09/03/23 11:40) Rash Medication List - Last Reconciled 09/03/23 by Boaz Astorga MD acetaminophen (Tylenol Extra Strength) 500 mg PO .TWICE A DAY PRN alprazolam 0.5 mg PO BID PRN alum-mag hydroxide-simeth 200-200-20 mg/5 mL 10 mL PO ONCE PRN blood sugar diagnostic ([employer] Ultra Test strips) USE DIRECTED TO TEST BLOOD SUGAR FOUR TIMES DAILY buspirone 7.5 mg PO DAILY carvedilol 6.25 mg PO BID cholecalciferol (vitamin D3) (Vitamin D3) 25 mcg PO DAILY ciclopirox 0.77% 1 applic topical BID clotrimazole-betamethasone 1-0.05 % 1 appl topical BID PRN dulaglutide 1.5 mg (0.5 mL) subcut QWEEK 4 weeks furosemide 10 mg PO QAM lancets ([employer] Delica Plus Lancet) USE FOUR TIMES DAILY lidocaine 5% 1 patch topical DAILY metformin 250 mg (1/2 x 500 mg) PO BID 90 days multivit with min-folic acid 200 mcg (Adult Multivitamin Gummies) 1 tab PO DAILY nystatin 1 appl topical TID PRN 14 days pantoprazole 40 mg PO DAILY polyethylene glycol 3350 17 grams PO DAILY 90 days propylene glycol 0.6% (Systane Balance) 1 drp ophthalmic (eye) BID PRN rosuvastatin 40 mg PO DAILY 90 days sennosides 17.2 mg (2 x 8.6 mg) PO DAILY 30 days spironolactone (Aldactone) 25 mg PO BEDTIME 30 days Tobacco use date assessed: 09/03/23 Fall risk assessment: No Falls in past year Last assessed Fall Risk: 09/03/23 Dental Screening Dental Screen Date: 09/03/23 Did you have a dental visit in the last 12 months?: Yes Did you have a dental problem in the last 6 months where you did not have access to dental care?: No Was dental information given to patient?: Patient has dentist HPI 3mth f/u HPI Details Patient comes in today for her follow up visit States that she feels okay She denies any headaches or dizziness Denies any chest pains, no SOB No nausea/vomiting, no abdominal pain No change in bowel habits noted Needs a couple of her Rx refilled Had her follow up labs done a few days ago - to discuss her results [facility] Medical History Chronic kidney disease, stage 4 (severe) Type 2 diabetes mellitus Obesity Skin abrasion HARRIET (renal artery stenosis) Left bundle branch block Nonischemic cardiomyopathy Urinary incontinence GERD (gastroesophageal reflux disease) COVID-19 Pneumonia due to COVID-19 virus Vertigo Obesity (BMI 30-39.9) Depression Anxiety Stasis edema of both lower extremities Cardiomyopathy Pure hypercholesterolemia Hyperkalemia Renal artery stenosis Benign essential hypertension Conjunctival hemorrhage of right eye Surgical History Hx of colonoscopy Hx of myomectomy History of cataract surgery History of lumpectomy of left breast History of cholecystectomy Family History Father CVD (cardiovascular disease) Myocardial infarction Mother Myocardial infarction CVD (cardiovascular disease) Brother Myocardial infarction Family/Other FH: prostate cancer Social History Household Members: None Housing: Apartment Do you presently have visiting nurse or other home services: No Alcohol intake: never Patient Tobacco Use Status: Former Tobacco user Tobacco use type: Cigarette e-Cigarette/Vaping Use: Never Used Second Hand Smoke Exposure: No Advance Directives Date on File: 08/06/21 service: No Current occupational status: disabled Cognitive needs: No Hearing needs: No Vision needs: Yes Questionnaire PHQ-9 Over the last 2 weeks, how often have you been bothered by any of the following problems? 1. Little interest or pleasure in doing things: not at all 2. Feeling down, depressed, or hopeless: not at all 3. Trouble falling or staying asleep, or sleeping too much: not at all 4. Feeling tired or having little energy: not at all 5. Poor appetite or overeating: not at all 6. Feeling bad about yourself - or that you are a failure or have let yourself or your family down: not at all 7. Trouble concentrating on things, such as reading the newspaper or watching television: not at all 8. Moving or speaking so slowly that other people could have noticed. Or the opposite - being so fidgety or restless that you have been moving around a lot more than usual: not at all 9. Thoughts that you would be better off or of hurting yourself in some way: not at all Total score: 0 Depression Screening Interpretation: Negative Depression Screening Done: Yes 89858 - PHQ-9 Billing: Yes Source: Developed by Drs. Kayden Gonzalez, Alka Silver, Harjit Rush and colleagues, with an educational vlad from [employer]. Thrive Questionnaire Date Thrive assessed: 09/03/23 I am a: Patient What is your living situation today?: I have a steady place to live Within the past 12 months, did the food you bought not last and you didn't have the money to get more?: Never true Within the past 12 months, did you worry whether your food would run out before you got money to buy more?: Never true Do you have trouble paying for medicines?: No Do you have trouble getting transportation to medical appointments?: No Do you have trouble paying your heating and electricity bill?: No Do you have trouble taking care of your child, family member or friend?: No Do you have trouble with day-to-day activities such as bathing, preparing meals, shopping, managing finances, etc.?: No Are you currently unemployed and looking for a job?: No Are you interested in more education?: No Please select the resources that you would like help with: None Currently or been in a relationship where the following occur: no concerns reported AUDIT C Alcohol Use Questionnaire (AUDIT-C) 1. How often do you have a drink containing alcohol?: Never 3. How often do you have six or more drinks on one occasion?: Never Total Score: 0 Score Reviewed/Action Taken: Yes VIKRAM-7 AMB Questionnaire VIKRAM-7 Date VIKRAM - 7 assessed: 09/03/23 Feeling nervous, anxious, or on edge: 0 = Not at all Not being able to stop or control worryin = Not at all Worrying too much about different things: 0 = Not at all Trouble relaxin = Not at all Being so restless that it is hard to sit still: 0 = Not at all Becoming easily annoyed or irritable: 0 = Not at all Feeling afraid as if something awful might happen: 0 = Not at all Total VIKRAM-7 score (0-4 normal; 5-9 mild; 10-14 moderate; 15-21 severe): 0 Source: Developed by Drs. Kayden Gonzalez, Alka Silver, Harjit Rush and colleagues, with an educational vlad from [employer]. Review of Systems Const Denies chills, Reports fatigue, Denies fever(s) and Denies headache(s) ENT Denies dysphagia, Denies dizziness, Denies otalgia, Denies headache(s), Denies neck pain, Denies odynophagia and Denies sore throat Card Denies chest pain, Denies palpitations and Denies dyspnea Resp Denies chest congestion, Denies cough and Denies dyspnea GI Denies abdominal pain, Denies constipation, Denies dysphagia, Denies heartburn, Denies diarrhea, Denies nausea, Denies odynophagia and Denies vomiting Denies difficulty voiding, Denies nocturia, Denies dysuria and Reports urinary incontinence Musc Denies back pain and Denies neck pain Skin/Breast Denies rash Neuro Denies dizziness and Denies headache(s) Psych Reports anxiety Endo Reports fatigue and Denies palpitations Physical exam (Primary Care) Vital Signs: Last Vital Signs Pulse 78 09/03/23 10:40 BP 142/80 H 09/03/23 10:40 Pulse Ox 97 09/03/23 10:40 Oxygen Delivery Method Room Air 09/03/23 10:40 BMI result Body Mass Index 31.5 Tobacco/Smoking Status: Tobacco use Status Tobacco use date assessed 09/03/23 09/03/23 10:52 Patient Tobacco Use Status Former Tobacco user 09/03/23 10:52 Tobacco use type Cigarette 09/03/23 10:52 e-Cigarette/Vaping Use Never Used 09/03/23 10:52 PHQ-9: PHQ-9 Score PHQ-9: Total score 0 09/03/23 10:52 Depression Screening Interpretation: Negative Thrive Assessment: Date of Thrive Assessment Date Thrive assessed 09/03/23 09/03/23 10:52 Currently or been in a relationship where the following occur: no concerns reported Const General: no acute distress and alert HENMT Ears: TM's normal bilaterally and EAC's normal Throat: Yes posterior oropharynx normal and Yes tonsils normal (no TP congestion noted) Neck Neck: Yes no lymphadenopathy and Yes supple Resp Auscultation: clear to auscultation bilaterally, no rales and no wheezes Cardio Rate: regular rate Rhythm: regular rhythm Heart sounds: no murmurs GI Palpation (GI): Soft to palpation and nontender Auscultation: normal bowel sounds Skin Rashes: no rashes Extrem General: Yes no clubbing, cyanosis or edema Results Reviewed Results Reviewed: Laboratory Tests 08/29/23 08/29/23 04:20 09:44 WBC 6.6 Hgb 10.9 L Hct 35.1 L Plt Count 304 D Sodium 139 Potassium 4.7 Creatinine 1.99 H Estimated GFR 24 Fasting Glucose 118 H Hemoglobin A1c % 8.1 H Calcium 10.4 H Triglycerides 72 Cholesterol 129 LDL Cholesterol, Calc 65 HDL Cholesterol 50 Vitamin B12 836 25-OH Vitamin D Total 42.2 TSH 3.64 Free T4 0.96 Ur Specific [place] <= 1.005 Urine Protein Negative Urine Glucose (UA) Negative Urine Blood Trace H Assessment and Plan Assessment & Plan (1) Benign essential hypertension: Code(s): I10 - Essential (primary) hypertension Plan: Reinforced low sodium diet - goal is systolic BP of at least 130 to 140 mm or less Continue Carvedilol 6.25 mg BID and Spironolactone 25 mg QD (Rx refilled); is also on Furosemide 10 mg QD Losartan was HELD previously and she is advised to NOT start back on Rx unless she is instructed to do so Follow up with cardiology as scheduled (2) Cardiomyopathy: Code(s): I42.9 - Cardiomyopathy, unspecified Qualifiers: Cardiomyopathy type: unspecified Qualified Code(s): I42.9 - Cardiomyopathy, unspecified Plan: Continue Carvedilol 6.25 mg BID Patient [place] [facility] [place] - both tests came back normal BNP also came back normal when checked previously Follow up with cardiology as scheduled (3) Renal artery stenosis: Code(s): I70.1 - Atherosclerosis of renal artery Plan: Has left HARRIET (seen on renal artery doppler) and will be considered for renal angioplasty if necessary BP has improved a lot with the addition of Spironolactone Will continue to observe her for now Follow up with nephrology (Dr. Madrigal) as scheduled (4) Chronic kidney disease, stage 4 (severe): Code(s): N18.4 - Chronic kidney disease, stage 4 (severe) Plan: Patient's serum creatinine and GFR/renal function appear stable on her recent labs Will continue to monitor GFR and serum creatinine closely Follow up with nephrology (Dr. Madrigal) as scheduled - nephrology recommended adding an SGLT-2 inhibitor and patient may be able to come off Metformin Patient was previously referred to endocrinology and she believes that she is now seeing somebody for her diabetes although I have not received any correspondence yet from any endocrinology practice - will try to look into this If she is seeing endocrinology now, I will leave it up to the discretion of endocrinology whether they want to start her on an SGLT-2 inhbitor and take her off Metformin or not (5) Type 2 diabetes mellitus: Code(s): E11.9 - Type 2 diabetes mellitus without complications Qualifiers: 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 [employer] operator insulin use: without [place] [facility] use 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 complication status: with kidney complications 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 complication detail: with chronic kidney disease Chronic kidney disease stage: stage 4 (severe) Qualified Code(s): E11.22 - Type 2 diabetes mellitus with diabetic chronic kidney disease; N18.4 - Chronic kidney disease, stage 4 (severe) Plan: HgbA1c was at 8.1% on her labs done a few days ago; was previously at 8.0% a few months ago - goal is <7.0% Reinforced diabetic diet Continue Metformin ER 500 mg QD - dose was lowered from BID previously due to her advancing renal disease Januvia was also previously discontinued due to recurrent hypoglycemia Her Trulicity was increased to 1.5 mg SQ once a week at her last visit and she has been tolerating this so far with no problems Glimepiride 1 mg Q AM was added at her last visit but she was later asked to stop the Rx due to hypoglycemia Nephrology recommended adding an SGLT-2 inhibitor and patient may be able to come off her Metformin completely She was previously referred to endocrinology and she believes that she is now seeing somebody for her diabetes although I have not received any correspondence yet from endocrinology - will try to look into this If she is seeing endocrinology now, I will leave it up to the discretion of endocrinology whether they want to start her on an SGLT-2 inhbitor and take her off Metformin or not (6) Pure hypercholesterolemia: Code(s): E78.00 - Pure hypercholesterolemia, unspecified Plan: Results of her labs done a few days ago reviewed and discussed with patient Reinforced low cholesterol diet Continue Atorvastatin 80 mg QD Will recheck her labs and fasting lipids in 3 months for follow up (7) Elevated TSH: Code(s): R79.89 - Other specified abnormal findings of blood chemistry Plan: TSH was slightly elevated previously but is now normal on her recent labs; free T4 and T3 levels were normal and TPO Ab level was high when previously checked, suggesting possible Pb's Patient still appears clinically euthyroid at present so no intervention is indicated at this time Will continue to monitor her TFTs regularly (8) Anxiety: Code(s): F41.9 - Anxiety disorder, unspecified Plan: Continue Buspirone 7.5 mg QD and Alprazolam 0.5 mg BID PRN Follow up with psychiatry as scheduled (9) Depression: Code(s): F32.9 - Major depressive disorder, single episode, unspecified Qualifiers: Depression Type: unspecified Qualified Code(s): F32.9 - Major depressive disorder, single episode, unspecified Plan: Follow up with psychiatry as scheduled - patient goes to [facility] (10) Obesity (BMI 30-39.9): Code(s): E66.9 - Obesity, unspecified Plan: Reinforced diet; exercise and weight loss are unrealistic given patient's multiple comorbidities and limited activity tolerance as well as her gait instability - fell recently and reportedly sustained a faint, non-displaced fracture of her left 7th rib Plan Follow up in 3 months Orders: Orders Complete Blood Count Auto Diff 3 Months I10 - Essential (primary) hypertension Lipid Panel 3 Months E78.00 - Pure hypercholesterolemia, unspecified Microalbumin, Random (w Creat) 3 Months E11.9 - Type 2 diabetes mellitus without complications Comprehensive [place]. Panel Fast 3 Months E78.00 - Pure hypercholesterolemia, unspecified Hemoglobin A1c 3 Months E11.9 - Type 2 diabetes mellitus without complications TSH reflex Free T4 3 Months E78.00 - Pure hypercholesterolemia, unspecified UA CC w/rflx Micro + Cult 3 Months R30.0 - Dysuria Vitamin D 25-OH Total 3 Months E55.9 - Vitamin D deficiency, unspecified Medications: Changed From spironolactone (Aldactone) 25 mg PO BEDTIME 30 days 30 tabs 3RF To spironolactone (Aldactone) 25 mg PO BEDTIME 90 days 90 tabs 1RF From carvedilol 6.25 mg PO BID To carvedilol 6.25 mg PO BID 90 days 180 tabs 1RF Coding Level of Care Code Est Pt Level 4 (33330) Diagnoses Benign essential hypertension I10 Cardiomyopathy, unspecified type I42.9 Cardiomyopathy type: unspecified Renal artery stenosis I70.1 Chronic kidney disease, stage 4 (severe) N18.4 Type 2 diabetes mellitus with stage 4 chronic kidney disease, without long-term current use of insulin E11.22; N18.4 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 [employer] operator insulin use: without [place] [facility] use 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 complication status: with kidney complications 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 complication detail: with chronic kidney disease Chronic kidney disease stage: stage 4 (severe) Pure hypercholesterolemia E78.00 Elevated TSH R79.89 Anxiety F41.9 Depression, unspecified depression type F32.9 Depression Type: unspecified Obesity (BMI 30-39.9) E66.9
[2023-09-03 10:40] VITALS: BP 142/80; PULSE 78; O2SAT 97; BMI 31.5
== END 2023-09-03 11:53 | disposition home or self-care (01) ==
PROVIDERS: PCP Internal Medicine; Visit Provider Internal Medicine
DX: I12.9 Hypertensive chronic kidney disease with stage 1 through stage 4 chronic kidney disease, or unspecified chronic kidney disease (principal); E11.22 Type 2 diabetes mellitus with diabetic chronic kidney disease; I70.1 Atherosclerosis of renal artery; N18.4 Chronic kidney disease, stage 4 (severe); I42.9 Cardiomyopathy, unspecified; E66.9 Obesity, unspecified; Z68.31 Body mass index [BMI] 31.0-31.9, adult; E78.00 Pure hypercholesterolemia, unspecified; R79.89 Other specified abnormal findings of blood chemistry; F41.9 Anxiety disorder, unspecified; F32.9 Major depressive disorder, single episode, unspecified
CPT/HCPCS: 99214

== ENCOUNTER 2023-09-09 11:30 | Emergency (ER) | payer OTHER, SELFPAY ==
[2023-09-09 11:37] VITALS: BP 171/85; PULSE 83; RESP 20; TEMP 36.4; O2SAT 98; BMI 57.4
--- NOTE | 2023-09-09 11:55 | ECG_ITS ---
Test Reason : htn Blood Pressure : / mmHG Vent. Rate : 078 BPM Atrial Rate : 078 BPM P-R Int : 168 ms QRS Dur : 156 ms QT Int : 432 ms P-R-T Axes : 068 -21 087 degrees QTc Int : 492 ms Normal sinus rhythm Left bundle branch block Abnormal ECG When compared with ECG of 06-AUG-2021 02:30, No significant change was found Referred By: Matt Ramirez Electronically Signed By:VALENTINE SERRANO MD
--- NOTE | 2023-09-09 12:02 | ED.GENADULT ---
HPI - General Adult General Chief complaint: Weakness Stated complaint: GENERAL WEAKNESS,BP 180/113 PER EMS Time Seen by Provider: 09/09/23 11:41 Source: patient Mode of arrival: EMS Limitations: no limitations History of Present Illness HPI narrative: This is 77 years old female with history of anxiety, hypertension, diabetes presented to the emergency room by ambulance with a chief complaint of generalized weakness and elevated blood pressure. Denies any chest pain shortness of breath. Denies any fever chills vomiting Onset (ago): hour(s) (1) Radiation: non-radiation Severity: mild Relieving factors: none Exacerbating factors: none Related Data Home Medications Medication Instructions Recorded Confirmed acetaminophen 500 mg tablet 500 mg PO .TWICE A DAY PRN Pain 08/16/20 09/03/23 (Tylenol Extra Strength) alprazolam 0.5 mg tablet 0.5 mg PO BID PRN Anxiety 08/16/20 09/03/23 aluminum-mag hydroxide-simethicone 10 ml PO ONCE PRN Stomach Upset 08/16/20 09/03/23 200 mg-200 mg-20 mg/5 mL oral susp buspirone 7.5 mg tablet 7.5 mg PO DAILY 08/16/20 09/03/23 ciclopirox 0.77 % topical cream 1 applic topical BID 02/22/21 09/03/23 cholecalciferol (vitamin D3) 25 25 mcg PO DAILY 08/06/21 09/03/23 mcg (1,000 unit) tablet (Vitamin D3) propylene glycol 0.6 % eye drops 1 drp ophthalmic (eye) BID PRN Dry 08/06/21 09/03/23 (Systane Balance) Eye(S) furosemide 20 mg tablet 10 mg PO QAM 07/03/22 09/03/23 Previous Rx's Medication Instructions Recorded nystatin 100,000 unit/gram topical 1 appl topical TID PRN rash 14 02/07/22 powder days #30 grams pantoprazole 40 mg tablet,delayed 40 mg PO DAILY #90 tabs 11/22/22 release lancets 33 gauge (OneTouch [place] #200 ea 01/30/23 Plus Lancet) lidocaine 5 % topical patch 1 patch topical DAILY #15 ea 05/17/23 metformin 500 mg tablet 250 mg (1/2 x 500 mg) PO BID 90 08/09/23 days #90 tabs rosuvastatin 40 mg tablet 40 mg PO DAILY 90 days #90 tabs 06/01/23 multivitamin with minerals-folic 1 tab PO DAILY #90 tabs 06/12/23 acid 200 mcg chewable tablet (Adult Multivitamin Gummies) clotrimazole-betamethasone 1 1 appl topical BID PRN rash #30 06/18/23 %-0.05 % topical cream grams polyethylene glycol 3350 17 gram 17 g PO DAILY constipation 90 days 06/29/23 oral powder packet #100 ea sennosides 8.6 mg tablet 17.2 mg (2 x 8.6 mg) PO DAILY 06/29/23 constipation 30 days #180 tabs carvedilol 6.25 mg tablet 6.25 mg PO BID 90 days #180 tabs 09/03/23 spironolactone 25 mg tablet 25 mg PO BEDTIME 90 days #90 tabs 09/03/23 (Aldactone) dulaglutide 1.5 mg/0.5 mL 1.5 mg (0.5 mL) subcut QWEEK 4 09/08/23 subcutaneous pen injector weeks #2 mL blood sugar diagnostic (WhistlestopTouch #100 strips 09/20/23 Ultra Test strips) Allergies Allergy/AdvReac Type Severity Reaction Status Date / Time aspirin [Aspirin] Allergy Severe MOUTH Verified 09/03/23 11:40 SWELLING hydrochlorothiazide Allergy Intermediate DROP IN Verified 09/03/23 11:40 [Hydrochlorothiazide] BLOOD PRESSURE Penicillins [PENICILLINS] Allergy Intermediate ITCHING Verified 09/03/23 11:40 caffeine [Caffeine] Allergy Mild NERVOUSNESS Verified 09/03/23 11:40 lisinopril [Lisinopril] Allergy Mild CHANGES IN Verified 09/03/23 11:40 BLOOD PRESSURE ranitidine [RANITIDINE] Allergy Mild HEADACHE Verified 09/03/23 11:40 amlodipine [AMLODIPINE] Allergy Unknown UNKNOWN Verified 09/03/23 11:40 amoxicillin Allergy Unknown itching, Verified 09/03/23 11:40 severe with rash diclofenac Allergy Unknown Unknown Verified 09/03/23 11:40 escitalopram Allergy Unknown abdominal Verified 09/03/23 11:40 discomfort, drowsiness esomeprazole [Nexium] Allergy Unknown Unknown Verified 09/03/23 11:40 isosorbide [ISOSORBIDE] Allergy Unknown UNKNOWN Verified 09/03/23 11:40 lidocaine [Lidoderm] Allergy Unknown weakness Verified 09/03/23 11:40 mirtazapine Allergy Unknown Unknown Verified 09/03/23 11:40 nystatin Allergy Unknown rash Verified 09/03/23 11:40 sertraline [SERTRALINE] Allergy Unknown UNKNOWN Verified 09/03/23 11:40 dexlansoprazole AdvReac Severe AGITATION Verified 09/03/23 11:40 [From DEXILANT] hydrocortisone AdvReac Mild RAISES Verified 09/03/23 11:40 [From Cortizone-10] BLOOD SUGAR topiramate [From TOPAMAX] AdvReac Unknown AGITATION Verified 09/03/23 11:40 From PLAVIX Allergy Unknown PT UNSURE Uncoded 09/03/23 11:40 OF REACTION Medical tape Allergy Unknown Rash Uncoded 09/03/23 11:40 Review of Systems Constitutional: Constitutional: Reports no additional constitutional complaints ENT: Reports system reviewed and no additional complaints, except as documented Cardiovascular: Cardiovascular: Reports chest pain PMFSH Past Medical History Medical History Chronic kidney disease, stage 4 (severe) Type 2 diabetes mellitus Obesity Skin abrasion HARRIET (renal artery stenosis) Left bundle branch block Nonischemic cardiomyopathy Urinary incontinence GERD (gastroesophageal reflux disease) COVID-19 Pneumonia due to COVID-19 virus Vertigo Obesity (BMI 30-39.9) Depression Anxiety Stasis edema of both lower extremities Cardiomyopathy Pure hypercholesterolemia Hyperkalemia Renal artery stenosis Benign essential hypertension Conjunctival hemorrhage of right eye Surgical History Hx of colonoscopy Hx of myomectomy History of cataract surgery History of lumpectomy of left breast History of cholecystectomy Family History Family History Father CVD (cardiovascular disease) Myocardial infarction Mother Myocardial infarction CVD (cardiovascular disease) Brother Myocardial infarction Family/Other FH: prostate cancer Social History Social History Household Members: None Housing: Apartment Do you presently have visiting nurse or other home services: No Alcohol intake: never Patient Tobacco Use Status: Former Tobacco user Tobacco use type: Cigarette e-Cigarette/Vaping Use: Never Used Second Hand Smoke Exposure: No Advance Directives Date on File: 08/06/21 service: No Current occupational status: disabled Cognitive needs: No Hearing needs: No Vision needs: Yes Physical Exam ED Vital Signs: Vital Signs - 24 hr 09/09/23 11:37 09/09/23 12:27 09/09/23 15:15 Temperature 97.5 F 97.7 F Pulse Rate 83 15 L 79 Respiratory Rate 20 18 18 Blood Pressure 171/85 H 156/71 H 118/66 Pulse Oximetry 98 98 Oxygen Delivery Method Room Air Room Air Room Air BMI result Body Mass Index 57.4 Const General: cooperative, comfortable, no acute distress, well developed, alert and awake Nutritional Appearance: average body habitus Orientation/consciousness: patient oriented x3 Limitations: no limitations HENMT Head: Yes normal to inspection Face and sinus: Yes normal facial exam Neck Neck: Yes normal visual inspection Chest Chest palpation & inspection: normal inspection of the chest Resp Effort & Inspection: normal respiratory effort Auscultation: clear to auscultation bilaterally Cardio Jugular venous distension: no JVD Rate: regular rate Rhythm: regular rhythm GI Inspection: Yes normal to inspection Palpation (GI): Soft to palpation, not firm, nontender and no guarding Skin General skin exam: no rashes or lesions noted, elasticity normal and turgor normal Lesions: no lesions Rashes: no rashes Trauma: no lacerations or abrasions Neuro General: patient oriented x3 Course Reevaluation(s) Reevaluation #1: She is much better she is asymptomatic at this time blood pressure is 118/66, labs are within normal limits the dramatic improvement after the benzodiazepine given. I think most of the symptoms are related to anxiety SCIENTIFIC MANAGER is here she will go home with the SCIENTIFIC MANAGER Time: 15:37 Medications Administered Discontinued Medications Generic Name Dose Route Start Last Admin Trade Name Freq PRN Reason Stop Dose Admin Clonazepam 0.5 mg 09/09/23 11:55 09/09/23 12:31 Clonazepam 0.5 Mg Tablet PO 09/09/23 11:56 0.5 mg ONCE ONE Administration Medical Decision Making Medical Decision Making [facility] Narrative: Patient presented with generalized weakness and elevated blood pressure, she has history of anxiety, will check labs EKG and reassess Differential Diagnosis Differential Diagnoses: The differential diagnosis associated with the presentation includes Hypertensive crisis/acute coronary syndrome/panic attack Admission/Observation Consideration of admission/observation: Escalation of care including admission/observation considered Lab Data MDM Lab Attestation statement: I reviewed the patient's lab results. 09/09/23 12:39 09/09/23 12:39 Labs: Lab Results 09/09/23 09/09/23 09/09/23 Range/Units 12:39 15:20 15:55 WBC 5.9 (4.8-10.8) X10*3/uL RBC 4.01 L (4.20-5.50) X10*6/uL Hgb 10.5 L (12.0-16.0) g/dl Hct 33.9 L (37.0-47.0) % MCV 84.5 (80.0-98.0) fL MCH 26.2 L (27.0-33.0) pg MCHC 31.0 (31.0-35.0) g/dl RDW 16.7 H (11.0-16.0) % Plt Count 261 (160-400) X10*3/uL MPV 10.8 (9.4-12.3) fL Immature Gran % (Auto) 0.2 (0.0-0.4) % Neut % (Auto) 66.5 (45-73) % Lymph % (Auto) 19.7 L (20-40) % Wilson % (Auto) 11.9 H (2-11) % Eos % (Auto) 1.2 (0-4) % Baso % (Auto) 0.5 (0-2) % Lymph # (Auto) 1.2 (1.2-4.9) X10*3/uL Wilson # (Auto) 0.7 (0.1-1.2) X10*3/uL Eos # (Auto) 0.1 (0.0-0.4) X10*3/uL Baso # (Auto) 0.0 (0.0-0.2) X10*3/uL Abs Immat Gran (auto) 0.01 (0.00-0.03) X10*3/uL Absolute Neuts (auto) 3.9 (2.0-8.3) x10*3/uL Absolute Nucleated RBC 0.000 (0.0-0.012) X10*3/uL Nucleated RBC % (auto) 0.0 (0.0-0.2) /100WBC Sodium 137 (135-145) mmol/L Potassium 3.8 (3.3-5.1) mmol/L Chloride 103 (96-108) mmol/L Carbon Dioxide 23 (22-29) mmol/L Anion Gap 15 (12-20) BUN 26 H (9-16) mg/dL Creatinine 2.36 H (0.5-1.4) mg/dL Estim Creat Clear Calc 30.5 Estimated GFR 20 POC Glucose 109 (60-115) mg/dL Random Glucose 154 H (60-115) mg/dL Calcium 10.1 (8.4-10.2) mg/dL Total Bilirubin 1.1 H (0.0-1.0) mg/dL AST 44 H (5-31) U/L ALT 37 H (0-31) U/L Alkaline Phosphatase 93 (39-117) U/L Troponin I High Sens 12.4 (<3.5-17.0) ng/L Total Protein 7.5 (6.5-8.0) g/dL Albumin 4.2 (3.5-5.0) g/dL Urine Color Yellow Urine Appearance Clear Urine pH 6.5 (5.0-9.0) Ur Specific [place] <= 1.005 (1.005-1.025) Urine Protein 30 (1+) H (Neg-Trace) mg/dL Urine Glucose (UA) Negative (Negative) mg/dL Urine Ketones Negative (Negative) mg/dL Urine Blood Small (1+) H (Negative) Urine Nitrite Negative (Negative) Ur Leukocyte Esterase Small (1+) H (Negative) Urine RBC 0-2 (0-2) /HPF Urine WBC 0-5 (0-5) /HPF Ur Squamous Epith Cells 0-2 (0-2) /HPF Urine Bacteria None Seen (None Seen) Hyaline Casts 0-2 (0-2) /LPF Independent Interpretation I performed an independent interpretation of an: EKG Interpretation: Normal sinus rhythm old left bundle-branch block Independent Historian Clinical information obtained from an independent historian. History obtained from or confirmed by: EMS Chronic Conditions Patient?s care impacted by: Diabetes and Hypertension Discharge Plan Discharge Clinical Impression: Weakness, Anxiety, Renal failure, chronic Patient Disposition: Home, Self-Care Instructions: Weakness (ED) Additional Instructions: Follow-up with your primary care physician tomorrow return to the emergency room if you are worse any concern Prescriptions: No Action nystatin 100,000 unit/gram powder 1 appl topical TID PRN (Reason: rash) 14 Days Qty: 30 0RF pantoprazole 40 mg tablet,delayed release (DR/EC) 40 mg PO DAILY Qty: 90 3RF metformin 500 mg tablet 250 mg PO BID 90 Days Qty: 90 1RF Adult Multivitamin Gummies 200 mcg tablet,chewable 1 tab PO DAILY Qty: 90 1RF clotrimazole-betamethasone 1-0.05 % cream 1 appl topical BID PRN (Reason: rash) Qty: 30 2RF dulaglutide 1.5 mg/0.5 mL pen injector 1.5 mg subcut QWEEK 28 Days Qty: 2 3RF (DME) OneTouch Ultra Test Strip See Rx Instructions .ROUTE .COMPLEX Qty: 100 5RF Dose Instruction: USE DIRECTED TO TEST BLOOD SUGAR FOUR TIMES DAILY Rx Instructions: USE DIRECTED TO TEST BLOOD SUGAR FOUR TIMES DAILY ciclopirox 0.77 % cream 1 applic topical BID cholecalciferol (vitamin D3) [Vitamin D3] 25 mcg (1,000 unit) Tablet 25 mcg PO DAILY Systane Balance 0.6 % Drops 1 drp OPHTHALMIC (EYE) BID PRN (Reason: Dry Eye(S)) lidocaine 5 % adhesive patch,medicated 1 patch topical DAILY Qty: 15 0RF Rx Instructions: leave on most painful area for up to 12 hrs buspirone 7.5 mg tablet 7.5 mg PO DAILY alprazolam 0.5 mg tablet 0.5 mg PO BID PRN (Reason: Anxiety) acetaminophen [Tylenol Extra Strength] 500 mg tablet 500 mg PO .TWICE A DAY PRN (Reason: Pain) alum-mag hydroxide-simeth 200-200-20 mg/5 mL suspension 10 ml PO ONCE PRN (Reason: Stomach Upset) Rx Instructions: administer between meals and at bedtime (DME) lancets [OneTouch Delica Plus Lancet] 33 gauge misc See Rx Instructions .ROUTE .COMPLEX Qty: 200 5RF Dose Instruction: USE FOUR TIMES DAILY Rx Instructions: USE FOUR TIMES DAILY rosuvastatin 40 mg tablet 40 mg PO DAILY 90 Days Qty: 90 1RF carvedilol 6.25 mg tablet 6.25 mg PO BID 90 Days Qty: 180 1RF spironolactone [Aldactone] 25 mg tablet 25 mg PO BEDTIME 90 Days Qty: 90 1RF polyethylene glycol 3350 17 gram powder in packet 17 g PO DAILY 90 Days Qty: 100 5RF sennosides 8.6 mg tablet 17.2 mg PO DAILY 30 Days Qty: 180 4RF furosemide 20 mg tablet 10 mg PO QAM Interventions: ED Discharge Assessment Last Done: 09/09/23 15:59 Discharge Date/Time: 09/09/23 16:01
[2023-09-09 12:03] VITALS: BP 180/110; PULSE 74; O2SAT 97
[2023-09-09 12:27] VITALS: BP 156/71; PULSE 15; RESP 18
[2023-09-09] MEDS: clonazePAM 0.5 MG TABLET PO (12:31)
--- NOTE | 2023-09-09 12:32 | PC.NURSE ---
pt medicated per order, ekg performed per order
[2023-09-09 12:44] LABS: MANUAL DIFF FLAG NO
[2023-09-09 12:45] LABS: Basophils Percent Auto 0.5 % (0-2); Eosinophils Absolute Auto 0.1 X10*3/uL (0.0-0.4); Eosinophils Percent Auto 1.2 % (0-4); Hematocrit 33.9 % (37.0-47.0); Hemoglobin 10.5 g/dl (12.0-16.0); Imm Gran Abs Auto 0.01 X10*3/uL (0.00-0.03); Imm Gran Pct Auto 0.2 % (0.0-0.4); Lymphocytes Absolute Auto 1.2 X10*3/uL (1.2-4.9); Lymphocytes Percent Auto 19.7 % (20-40); Mean Corpuscular Hemoglobin 26.2 pg (27.0-33.0); Mean Corpuscular Volume 84.5 fL (80.0-98.0); Mean Platelet Volume 10.8 fL (9.4-12.3); Monocytes Absolute Auto 0.7 X10*3/uL (0.1-1.2); Monocytes Percent Auto 11.9 % (2-11); Neutrophils Absolute Auto 3.9 x10*3/uL (2.0-8.3); Neutrophils Percent Auto 66.5 % (45-73); Platelet Count 261 X10*3/uL (160-400); Red Blood Count 4.01 X10*6/uL (4.20-5.50); Red Cell Distribution Width 16.7 % (11.0-16.0); White Blood Count 5.9 X10*3/uL (4.8-10.8)
[2023-09-09 13:05] LABS: Alanine Aminotransferase 37 U/L (0-31); Albumin Level 4.2 g/dL (3.5-5.0); Alkaline Phosphatase 93 U/L (39-117); Anion Gap 15 (12-20); Aspartate Amino Transferase 44 U/L (5-31); Bilirubin Total 1.1 mg/dL (0.0-1.0); Blood Urea Nitrogen 26 mg/dL (9-16); Calcium 10.1 mg/dL (8.4-10.2); Carbon Dioxide 23 mmol/L (22-29); Chloride 103 mmol/L (96-108); Creatinine Clr Calc Pharmacy 30.5; Estimated Glomerular Filt Rate 20; Glucose Random 154 mg/dL (60-115); Potassium 3.8 mmol/L (3.3-5.1); Sodium 137 mmol/L (135-145); Total Protein 7.5 g/dL (6.5-8.0)
[2023-09-09 13:12] LABS: Troponin-I High Sensitivity 12.4 ng/L (<3.5-17.0)
--- NOTE | 2023-09-09 14:00 | PC.NURSE ---
patient a&ox3, vss, interactive account manager nsr, family at bedside, pt awaiting provider
[2023-09-09 15:15] VITALS: BP 118/66; PULSE 79; RESP 18; TEMP 36.5; O2SAT 98
[2023-09-09 15:27] LABS: Glucose, Whole Blood 109 mg/dL (60-115)
--- NOTE | 2023-09-09 15:48 | PC.NURSE ---
patient a&ox3, vss, youth nutritional monitor nsr, pt has DM requested some PO prior to discharge, provider writing up discharge pt given po and will discharge shortly.
[2023-09-09 15:57] VITALS: BP 118/66; PULSE 87; RESP 16
[2023-09-09 16:06] LABS: Appearance Urine Clear; Color Urine Yellow; Glucose Urine UA Negative (Negative); Leukocyte Esterase Urine Small (1+) (Negative); Nitrite Urine Negative (Negative); PH 6.5 (5.0-9.0); Specific Gravity - Urine <= 1.005 (1.005-1.025); UMIC TRIGGER UACC YES; Urine Blood Small (1+) (Negative); Urine Ketones Negative (Negative); Urine Protein 30 (1+) mg/dL (Neg-Trace)
[2023-09-09 16:18] LABS: Bacteria Urine None Seen (None Seen); Hyaline Casts Urine 0-2 /LPF (0-2); RBC Urine 0-2 /HPF (0-2); Squamous Epithelial Cell Urine 0-2 /HPF (0-2); UACC Culture Trigger YES; WBC Urine 0-5 /HPF (0-5)
== END 2023-09-09 16:01 | disposition home or self-care (01) ==
PROVIDERS: Emergency Provider Emergency Medicine; PCP Internal Medicine
DX: R53.1 Weakness (principal); F41.1 Generalized anxiety disorder; I44.7 Left bundle-branch block, unspecified; F43.0 Acute stress reaction; N19 Unspecified kidney failure; R06.02 Shortness of breath; Z87.891 Personal history of nicotine dependence; Z79.899 Other long term (current) drug therapy
CPT/HCPCS: 36415; 80053; 81001; 82947; 84484; 85025; 87086; 93005; 99284

== ENCOUNTER 2023-09-27 09:18 | Outpatient (AMB) | payer OTHER, SELFPAY ==
--- NOTE | 2023-09-27 09:34 | MHC.PC.OV ---
Vital Signs 09/27/23 09:41 Height 4 ft 11 in Weight 157 lb 6 oz BMI 31.8 BP 142/62 H Blood Pressure Location Lt brachial Position Sitting Pulse 70 Pulse Source Palpation Intake Visit Reasons: weakness,anxiety and renal failure Structural Mill Supervisor Required: No Accompanied by: JAYSON-Lori Chávez Allergies aspirin [Aspirin] Allergy (Severe, Verified 09/27/23 10:03) MOUTH SWELLING hydrochlorothiazide [Hydrochlorothiazide] Allergy (Intermediate, Verified 09/27/23 10:03) DROP IN BLOOD PRESSURE Penicillins [PENICILLINS] Allergy (Intermediate, Verified 09/27/23 10:03) ITCHING caffeine [Caffeine] Allergy (Mild, Verified 09/27/23 10:03) NERVOUSNESS lisinopril [Lisinopril] Allergy (Mild, Verified 09/27/23 10:03) CHANGES IN BLOOD PRESSURE ranitidine [RANITIDINE] Allergy (Mild, Verified 09/27/23 10:03) HEADACHE amlodipine [AMLODIPINE] Allergy (Unknown, Verified 09/27/23 10:03) UNKNOWN amoxicillin Allergy (Unknown, Verified 09/27/23 10:03) itching, severe with rash diclofenac Allergy (Unknown, Verified 09/27/23 10:03) Unknown escitalopram Allergy (Unknown, Verified 09/27/23 10:03) abdominal discomfort, drowsiness esomeprazole [Nexium] Allergy (Unknown, Verified 09/27/23 10:03) Unknown isosorbide [ISOSORBIDE] Allergy (Unknown, Verified 09/27/23 10:03) UNKNOWN lidocaine [Lidoderm] Allergy (Unknown, Verified 09/27/23 10:03) weakness mirtazapine Allergy (Unknown, Verified 09/27/23 10:03) Unknown nystatin Allergy (Unknown, Verified 09/27/23 10:03) rash sertraline [SERTRALINE] Allergy (Unknown, Verified 09/27/23 10:03) UNKNOWN dexlansoprazole [From DEXILANT] Adverse Reaction (Severe, Verified 09/27/23 10:03) AGITATION hydrocortisone [From Cortizone-10] Adverse Reaction (Mild, Verified 09/27/23 10:03) RAISES BLOOD SUGAR topiramate [From TOPAMAX] Adverse Reaction (Unknown, Verified 09/27/23 10:03) AGITATION From PLAVIX Allergy (Unknown, Uncoded 09/27/23 09:49) PT UNSURE OF REACTION Medical tape Allergy (Unknown, Uncoded 09/27/23 09:49) Rash Medication List - Last Reconciled 09/27/23 by Nicholas Lopez PA-C acetaminophen (Tylenol Extra Strength) 500 mg PO .TWICE A DAY PRN alprazolam 0.5 mg PO BID PRN alum-mag hydroxide-simeth 200-200-20 mg/5 mL 10 mL PO ONCE PRN blood sugar diagnostic (Tribe Ultra Test strips) USE DIRECTED TO TEST BLOOD SUGAR FOUR TIMES DAILY buspirone 7.5 mg PO DAILY carvedilol 6.25 mg PO BID 90 days cholecalciferol (vitamin D3) (Vitamin D3) 25 mcg PO DAILY ciclopirox 0.77% 1 applic topical BID clotrimazole-betamethasone 1-0.05 % 1 appl topical BID PRN dulaglutide 1.5 mg (0.5 mL) subcut QWEEK 4 weeks furosemide 10 mg PO QAM lancets ([employer] Delica Plus Lancet) USE FOUR TIMES DAILY lidocaine 5% 1 patch topical DAILY metformin 250 mg (1/2 x 500 mg) PO BID 90 days multivit with min-folic acid 200 mcg (Adult Multivitamin Gummies) 1 tab PO DAILY nystatin 1 appl topical TID PRN 14 days pantoprazole 40 mg PO DAILY polyethylene glycol 3350 17 grams PO DAILY 90 days propylene glycol 0.6% (Systane Balance) 1 drp ophthalmic (eye) BID PRN rosuvastatin 40 mg PO DAILY 90 days sennosides 17.2 mg (2 x 8.6 mg) PO DAILY 30 days spironolactone (Aldactone) 25 mg PO BEDTIME 90 days Tobacco use date assessed: 09/03/23 HPI weakness,anxiety and renal failure HPI Details Patient is a 78-year-old female here today for problem visit. This the 1st time I am meeting this 78-year-old female with past medical history significant for hypertension, CKD stage 4, type 2 diabetes, depression anxiety. She has recently seen at the [place] [facility] for acute weakness and elevated blood pressure readings. Labs are stable continues to show her moderate to severe kidney disease. Was given benzodiazepine which drastically reduced her blood pressure. Currently feeling much better. She has followed up with her psychiatrist and med adjustments have been made in her alprazolam. Slightly elevated blood pressure reading today in office. She reports that home blood pressure was 112/60. [facility] Medical History Chronic kidney disease, stage 4 (severe) Type 2 diabetes mellitus Obesity Skin abrasion HARRIET (renal artery stenosis) Left bundle branch block Nonischemic cardiomyopathy Urinary incontinence GERD (gastroesophageal reflux disease) COVID-19 Pneumonia due to COVID-19 virus Vertigo Obesity (BMI 30-39.9) Depression Anxiety Stasis edema of both lower extremities Cardiomyopathy Pure hypercholesterolemia Hyperkalemia Renal artery stenosis Benign essential hypertension Conjunctival hemorrhage of right eye Surgical History Hx of colonoscopy Hx of myomectomy History of cataract surgery History of lumpectomy of left breast History of cholecystectomy Family History Father CVD (cardiovascular disease) Myocardial infarction Mother Myocardial infarction CVD (cardiovascular disease) Brother Myocardial infarction Family/Other FH: prostate cancer Social History Household Members: None Housing: Apartment Do you presently have visiting nurse or other home services: No Alcohol intake: never Patient Tobacco Use Status: Former Tobacco user Tobacco use type: Cigarette e-Cigarette/Vaping Use: Never Used Second Hand Smoke Exposure: No Advance Directives Date on File: 08/06/21 service: No Current occupational status: disabled Cognitive needs: No Hearing needs: No Vision needs: Yes Questionnaire Thrive Questionnaire Date Thrive assessed: 09/03/23 VIKRAM-7 AMB Questionnaire VIKRAM-7 Date VIKRAM - 7 assessed: 09/03/23 Source: Developed by Drs. Kayden Gonzalez, Alka Silver, Harjit Rush and colleagues, with an educational vlad from [employer]. Review of Systems Const Denies headache(s) Eyes Denies loss of vision ENT Denies vertigo, Denies dizziness, Denies headache(s) and Denies sore throat Card Denies chest pain, Denies leg edema and Denies lightheadedness Resp Denies cough, Denies hemoptysis and Denies wheezing GI Denies abdominal pain, Denies melena, Denies constipation, Denies diarrhea and Denies vomiting Denies urinary frequency, Denies dysuria and Denies urinary urgency Musc Denies arthralgias, Denies joint swelling, Denies numbness and Denies tingling Neuro Denies Abnormal speech present, Denies behavioral changes, Denies vertigo, Denies dizziness, Denies headache(s), Denies loss of vision, Denies memory loss, Denies numbness and Denies tingling Psych Denies anxiety, Denies behavioral changes, Denies depression, Denies memory loss and Denies panic attacks Hayden/Lymph Denies easy bleeding and Denies easy bruising Aller/Immun Denies wheezing Physical exam (Primary Care) Vital Signs: Last Vital Signs Pulse 70 09/27/23 09:41 BP 142/62 H 09/27/23 09:41 BMI result Body Mass Index 31.8 Tobacco/Smoking Status: Tobacco use Status Tobacco use date assessed 09/03/23 12 09:41 Patient Tobacco Use Status Former Tobacco user 09/27/23 09:41 Tobacco use type Cigarette 09/27/23 09:41 e-Cigarette/Vaping Use Never Used 09/27/23 09:41 Thrive Assessment: Date of Thrive Assessment Date Thrive assessed 09/03/23 09/27/23 09:41 Const General: healthy appearing, no acute distress, alert and awake Nutritional Appearance: well nourished Orientation/consciousness: oriented to person, oriented to place and oriented to time HENMT Ears: TM's normal bilaterally General nose exam: Normal nasal mucous membranes and turbinates present Eyes Conjunctivae: conjunctivae normal Sclerae: sclerae normal Pupils: Equal, round and reactive pupils present Neck Neck: Yes no lymphadenopathy and Yes no JVD Thyroid: Thyroid normal Carotids: no bruits Resp Effort & Inspection: normal respiratory effort and not tachypneic Auscultation: no crackles, no rales, no rhonchi and no wheezes Cardio Rate: regular rate Rhythm: regular rhythm Heart sounds: no murmurs and normal S1 and S2 GI Palpation (GI): Soft to palpation, nontender, no hepatomegaly and no splenomegaly Auscultation: normal bowel sounds Skin General skin exam: no rashes or lesions noted and dry skin Neuro General: oriented to person, oriented to place and oriented to time Cranial nerves: Yes Equal, round and reactive pupils present Speech: No Abnormal speech present Gait exam (Neuro): Normal gait present Motor exam (neuro): no tremor noted Extrem Right upper extremity: full ROM Left upper extremity: full ROM Right lower extremity: full ROM and edema Left lower extremity: full ROM and edema Psych Mental Status: mental status grossly normal Speech and movement: Normal speech and movement present Affect: normal affect Attitude: cooperative Thought process: Normal thought process present Assessment and Plan Assessment & Plan (1) Anxiety: Code(s): F41.9 - Anxiety disorder, unspecified Plan: Discussed patient's ER visit. Likely an anxiety attack causing elevated blood pressure reading causing weakness. [place] much better after given benzodiazepine. She has followed up with her psychiatrist and med adjustments have been made. (2) Chronic kidney disease, stage 4 (severe): Code(s): N18.4 - Chronic kidney disease, stage 4 (severe) Plan: Continues to follow Nephrology. Med adjustments have been made recently. Blood pressure at home has been stable 110-120 systolic. Blood pressure today in office slightly elevated though he she attributes this to her anxiety. (3) Lower extremity edema: Code(s): R60.0 - Localized edema Plan: Does have chronic lower extremity edema. Will give Rx for medical compression stockings. Medications: New compr.stocking,knee,long,large As directed 2 ea 0RF R60.0 - Localized edema Coding Level of Care Code Est Pt Level 3 (61269) Diagnoses Anxiety F41.9 Chronic kidney disease, stage 4 (severe) N18.4 Lower extremity edema R60.0
[2023-09-27 09:41] VITALS: BP 142/62; PULSE 70; BMI 31.8
== END 2023-09-27 10:28 | disposition home or self-care (01) ==
PROVIDERS: PCP Internal Medicine; Visit Provider Physician Assistant
DX: F41.9 Anxiety disorder, unspecified (principal); N18.4 Chronic kidney disease, stage 4 (severe); R60.0 Localized edema
CPT/HCPCS: 99213

== ENCOUNTER 2023-10-30 13:11 | Outpatient (REF) | payer OTHER, SELFPAY ==
[2023-10-30 13:48] LABS: MANUAL DIFF FLAG NO
[2023-10-30 14:10] LABS: Basophils Absolute Auto 0.1 X10*3/uL (0.0-0.2); Basophils Percent Auto 0.8 % (0-2); Eosinophils Absolute Auto 0.1 X10*3/uL (0.0-0.4); Eosinophils Percent Auto 1.1 % (0-4); Hematocrit 34.3 % (37.0-47.0); Hemoglobin 10.5 g/dl (12.0-16.0); Imm Gran Abs Auto 0.02 X10*3/uL (0.00-0.03); Imm Gran Pct Auto 0.3 % (0.0-0.4); Lymphocytes Absolute Auto 1.3 X10*3/uL (1.2-4.9); Lymphocytes Percent Auto 18.9 % (20-40); Mean Corpuscular HGB Conc 30.6 g/dl (31.0-35.0); Mean Corpuscular Hemoglobin 26.4 pg (27.0-33.0); Mean Corpuscular Volume 86.4 fL (80.0-98.0); Mean Platelet Volume 11.2 fL (9.4-12.3); Monocytes Absolute Auto 0.8 X10*3/uL (0.1-1.2); Monocytes Percent Auto 11.5 % (2-11); Neutrophils Absolute Auto 4.5 x10*3/uL (2.0-8.3); Neutrophils Percent Auto 67.4 % (45-73); Platelet Count 301 X10*3/uL (160-400); Red Blood Count 3.97 X10*6/uL (4.20-5.50); Red Cell Distribution Width 17.9 % (11.0-16.0); White Blood Count 6.6 X10*3/uL (4.8-10.8)
[2023-10-30 14:30] LABS: Estimated Average Glucose 189 mg/dL; Hemoglobin A1c % 8.2 % (<6.0)
[2023-10-30 14:59] LABS: Alanine Aminotransferase 45 U/L (0-31); Albumin Level 4.3 g/dL (3.5-5.0); Alkaline Phosphatase 108 U/L (39-117); Anion Gap 11 (12-20); Aspartate Amino Transferase 43 U/L (5-31); Blood Urea Nitrogen 29 mg/dL (9-16); Calcium 9.9 mg/dL (8.4-10.2); Carbon Dioxide 25 mmol/L (22-29); Chloride 105 mmol/L (96-108); Cholesterol 126 mg/dL (<200); Estimated Glomerular Filt Rate 20; Glucose Fasting 165 mg/dL (60-99); HDL Cholesterol 49 mg/dL (>40); LDL Cholesterol Calculated 61 mg/dL (<100); Sodium 137 mmol/L (135-145); Total Protein 7.8 g/dL (6.5-8.0); Triglycerides 81 mg/dL (<150)
[2023-10-30 15:15] LABS: TSH reflex Free T4 1.21 uIU/mL (0.32-4.0); Vitamin D 25-OH Total 37.7 ng/mL (>30)
[2023-10-30 15:36] LABS: Appearance Urine Clear; Color Urine Yellow; Glucose Urine UA Negative (Negative); Leukocyte Esterase Urine Trace (Negative); Nitrite Urine Negative (Negative); PH 5.5 (5.0-9.0); UMIC TRIGGER UACC YES; Urine Blood Small (1+) (Negative); Urine Ketones Negative (Negative); Urine Protein 30 (1+) mg/dL (Neg-Trace)
[2023-10-30 15:54] LABS: Bacteria Urine None Seen (None Seen); Granular Casts Urine Present; RBC Urine 0-2 /HPF (0-2); Squamous Epithelial Cell Urine 0-2 /HPF (0-2); WBC Urine 0-5 /HPF (0-5)
== END 2023-10-30 13:12 | disposition home or self-care (01) ==
LOC: HO.LAB 13:11
PROVIDERS: PCP Internal Medicine; Visit Provider Internal Medicine Nephrology
DX: I10 Essential (primary) hypertension (principal); E78.00 Pure hypercholesterolemia, unspecified; E55.9 Vitamin D deficiency, unspecified; E11.9 Type 2 diabetes mellitus without complications
CPT/HCPCS: 36415; 80053; 80061; 81001; 82043; 82306; 82570; 83036; 84443; 85025

== ENCOUNTER 2023-10-31 13:36 | Outpatient (AMB) | payer OTHER, SELFPAY ==
[2023-10-31 13:37] VITALS: BMI 30.7
--- NOTE | 2023-10-31 13:37 | HO.NEPHOV_ITS ---
HPI HPI Comments History of Present Illness Details I had the privilege of seeing Alicia in follow for CKD. She is known to have DM for a long time and is under good control now. She also has hypertension. She does not take NSAID's regularly. She denies any nausea, vomiting, diarrhea, SOB, edema, PND, orthopnea, hematuria, hearing deficits. She claims to be compliant with medications. She is not on SGLT2i. She has no sinusitis, epistaxis, photosensitivity, bone pain, sore throat , hemoptysis, skin lesions or recent antibiotic intake. She denied any active complaints at the time of this office visit [facility] Medical History Chronic kidney disease, stage 4 (severe) Type 2 diabetes mellitus Obesity Skin abrasion HARRIET (renal artery stenosis) Left bundle branch block Nonischemic cardiomyopathy Urinary incontinence GERD (gastroesophageal reflux disease) COVID-19 Pneumonia due to COVID-19 virus Vertigo Obesity (BMI 30-39.9) Depression Anxiety Stasis edema of both lower extremities Cardiomyopathy Pure hypercholesterolemia Hyperkalemia Renal artery stenosis Benign essential hypertension Conjunctival hemorrhage of right eye Surgical History Hx of colonoscopy Hx of myomectomy History of cataract surgery History of lumpectomy of left breast History of cholecystectomy Family History Father CVD (cardiovascular disease) Myocardial infarction Mother Myocardial infarction CVD (cardiovascular disease) Brother Myocardial infarction Family/Other FH: prostate cancer Social History Household Members: None Housing: Apartment Do you presently have visiting nurse or other home services: No Alcohol intake: never Patient Tobacco Use Status: Former Tobacco user Tobacco use type: Cigarette e-Cigarette/Vaping Use: Never Used Second Hand Smoke Exposure: No Advance Directives Date on File: 08/06/21 service: No Current occupational status: disabled Cognitive needs: No Hearing needs: No Vision needs: Yes Vital Signs 10/31/23 13:37 Height 4 ft 11 in Weight 152 lb BMI 30.7 Physical Exam Vital Signs: BMI result Body Mass Index 30.7 Assessment & Plan Assessment & Plan (1) HARRIET (renal artery stenosis): Code(s): I70.1 - Atherosclerosis of renal artery (2) Hypertension: Code(s): I10 - Essential (primary) hypertension Qualifiers: Hypertension type: renovascular hypertension Qualified Code(s): I15.0 - Renovascular hypertension (3) Chronic kidney disease, stage 4 (severe): Code(s): N18.4 - Chronic kidney disease, stage 4 (severe) Plan BP at goal. On statins Will need a F/U Doppler renal artery after next visit Maintain blood sugar at goal Strong candidate for Jardiance/Farxiga Follow up labs ordered Could D/C metformin when initiating SGLT2 i All questions answered; F/U given Orders: Orders Blood Urea Nitrogen Today I10 - Essential (primary) hypertension, I70.1 - Atherosclerosis of renal artery, N18.4 - Chronic kidney disease, stage 4 (severe) Creatinine Today I10 - Essential (primary) hypertension, I70.1 - Atherosclerosis of renal artery, N18.4 - Chronic kidney disease, stage 4 (severe) Electrolytes Today I10 - Essential (primary) hypertension, I70.1 - Atherosclerosis of renal artery, N18.4 - Chronic kidney disease, stage 4 (severe) Telehealth Telehealth Location of provider rendering services: practice address Location of patient: address on file Patient Identification confirmed using: Name, : Yes Telehealth method: voice only Patient verbally consented to treatment: Yes Patient verbally consented to billing insurance company: Yes Patient informed of any privacy concerns related to visit: Yes Minutes spent on Phone/Video with Pt.: 12 Coding Level of Care Code Tele Est Pt Level 3 (88362) Diagnoses HARRIET (renal artery stenosis) I70.1 Renovascular hypertension I15.0 Hypertension type: renovascular hypertension Chronic kidney disease, stage 4 (severe) N18.4 Results Reviewed Nephrology Results: Hgb 10.5 g/dl (12.0-16.0) L 10/30/23 WBC 6.6 X10*3/uL (4.8-10.8) 10/30/23 Plt Count 301 X10*3/uL (160-400) 10/30/23 Sodium 137 mmol/L (135-145) 10/30/23 Potassium 4.0 mmol/L (3.3-5.1) 10/30/23 Chloride 105 mmol/L (96-108) 10/30/23 Carbon Dioxide 25 mmol/L (22-29) 10/30/23 BUN 29 mg/dL (9-16) H 10/30/23 Creatinine 2.31 mg/dL (0.5-1.4) H 10/30/23 Calcium 9.9 mg/dL (8.4-10.2) 10/30/23 Urine Protein 30 (1+) mg/dL (Neg-Trace) H 10/30/23 Urine Creatinine 58.20 mg/dL 10/30/23
== END 2023-10-31 16:02 | disposition home or self-care (01) ==
LOC: HO.HKA 13:36
PROVIDERS: PCP Internal Medicine; Visit Provider Internal Medicine Nephrology
DX: I70.1 Atherosclerosis of renal artery (principal); I15.0 Renovascular hypertension; N18.4 Chronic kidney disease, stage 4 (severe)
CPT/HCPCS: 99213

== ENCOUNTER → 2023-10-31 13:36 | Outpatient (BNVA) | payer OTHER, SELFPAY | PROVIDERS: PCP Internal Medicine; Visit Provider Internal Medicine Nephrology ==

== ENCOUNTER 2023-12-12 12:27 | Emergency (ER) | payer OTHER, SELFPAY ==
[2023-12-12 12:40] VITALS: BP 144/86; BP 150/65; PULSE 79; PULSE 86; RESP 16; TEMP 36.8; O2SAT 100; O2SAT 96; BMI 31.1
[2023-12-12 14:23] LABS: Glucose, Whole Blood 119 mg/dL (60-115)
--- NOTE | 2023-12-12 14:38 | ED_ITS ---
HPI - General Adult General Chief complaint: Upper Respiratory Symptoms Stated complaint: +COVID,NAUSEA,WEAK PER EMS Time Seen by Provider: 12/12/23 14:18 History of Present Illness HPI narrative: The patient is an 78-year-old woman who lives alone in her own apartment. She has about 44 hours a week of [employer] assistance. Three days ago on Sunday she had visitors from her christianity to administer communion. Apparently 1 of the visitors told her that he had been feeling somewhat sick. She tried to stay away from him. That evening she started to feel somewhat unwell and took a COVID test that was negative. Since then she has felt progressively worse with a headache, runny nose, and sore throat. Yesterday she tested positive for COVID. She has been in contact with her primary care doctor and was advised against taking Paxlovid. This morning the patient had a blood pressure reading that was low at 1 0 5/64. She said that she felt very weak of the time and called an ambulance and she was brought to the hospital. In addition to her headache and sore throat and general body aches she also feels that she is having some urinary frequency and discomfort. Related Data Home Medications Medication Instructions Recorded Confirmed acetaminophen 500 mg tablet 500 mg PO .TWICE A DAY PRN Pain 08/16/20 09/27/23 (Tylenol Extra Strength) alprazolam 0.5 mg tablet 0.5 mg PO BID PRN Anxiety 08/16/20 09/27/23 aluminum-mag hydroxide-simethicone 10 ml PO ONCE PRN Stomach Upset 08/16/20 09/27/23 200 mg-200 mg-20 mg/5 mL oral susp buspirone 7.5 mg tablet 7.5 mg PO DAILY 08/16/20 09/27/23 ciclopirox 0.77 % topical cream 1 applic topical BID 02/22/21 09/27/23 cholecalciferol (vitamin D3) 25 25 mcg PO DAILY 08/06/21 09/27/23 mcg (1,000 unit) tablet (Vitamin D3) propylene glycol 0.6 % eye drops 1 drp ophthalmic (eye) BID PRN Dry 08/06/21 09/27/23 (Systane Balance) Eye(S) furosemide 20 mg tablet 10 mg PO QAM 07/03/22 09/27/23 Previous Rx's Medication Instructions Recorded nystatin 100,000 unit/gram topical 1 appl topical TID PRN rash 14 02/07/22 powder days #30 grams lancets 33 gauge (Stremoruch Delica #200 ea 01/30/23 Plus Lancet) lidocaine 5 % topical patch 1 patch topical DAILY #15 ea 05/17/23 rosuvastatin 40 mg tablet 40 mg PO DAILY 90 days #90 tabs 06/01/23 multivitamin with minerals-folic 1 tab PO DAILY #90 tabs 06/12/23 acid 200 mcg chewable tablet (Adult Multivitamin Gummies) clotrimazole-betamethasone 1 1 appl topical BID PRN rash #30 06/18/23 %-0.05 % topical cream grams polyethylene glycol 3350 17 gram 17 g PO DAILY constipation 90 days 06/29/23 oral powder packet #100 ea sennosides 8.6 mg tablet 17.2 mg (2 x 8.6 mg) PO DAILY 06/29/23 constipation 30 days #180 tabs carvedilol 6.25 mg tablet 6.25 mg PO BID 90 days #180 tabs 09/03/23 spironolactone 25 mg tablet 25 mg PO BEDTIME 90 days #90 tabs 09/03/23 (Aldactone) blood sugar diagnostic (Stremoruch #100 strips 09/20/23 Ultra Test strips) compr.stocking,knee,long,large #2 ea 09/27/23 metformin 500 mg tablet 250 mg (1/2 x 500 mg) PO BID 90 11/09/23 days #90 tabs pantoprazole 40 mg tablet,delayed 40 mg PO DAILY #90 tabs 11/09/23 release dulaglutide 1.5 mg/0.5 mL 1.5 mg (0.5 mL) subcut QWEEK 4 11/19/23 subcutaneous pen injector weeks #2 mL Allergies Allergy/AdvReac Type Severity Reaction Status Date / Time aspirin [Aspirin] Allergy Severe MOUTH Verified 10/31/23 13:38 SWELLING hydrochlorothiazide Allergy Intermediate DROP IN Verified 10/31/23 13:38 [Hydrochlorothiazide] BLOOD PRESSURE Penicillins [PENICILLINS] Allergy Intermediate ITCHING Verified 10/31/23 13:38 caffeine [Caffeine] Allergy Mild NERVOUSNESS Verified 10/31/23 13:38 lisinopril [Lisinopril] Allergy Mild CHANGES IN Verified 10/31/23 13:38 BLOOD PRESSURE ranitidine [RANITIDINE] Allergy Mild HEADACHE Verified 10/31/23 13:38 amlodipine [AMLODIPINE] Allergy Unknown UNKNOWN Verified 10/31/23 13:38 amoxicillin Allergy Unknown itching, Verified 10/31/23 13:38 severe with rash diclofenac Allergy Unknown Unknown Verified 10/31/23 13:38 escitalopram Allergy Unknown abdominal Verified 10/31/23 13:38 discomfort, drowsiness esomeprazole [Nexium] Allergy Unknown Unknown Verified 10/31/23 13:38 isosorbide [ISOSORBIDE] Allergy Unknown UNKNOWN Verified 10/31/23 13:38 lidocaine [Lidoderm] Allergy Unknown weakness Verified 10/31/23 13:38 mirtazapine Allergy Unknown Unknown Verified 10/31/23 13:38 nystatin Allergy Unknown rash Verified 10/31/23 13:38 sertraline [SERTRALINE] Allergy Unknown UNKNOWN Verified 10/31/23 13:38 dexlansoprazole AdvReac Severe AGITATION Verified 10/31/23 13:38 [From DEXILANT] hydrocortisone AdvReac Mild RAISES Verified 10/31/23 13:38 [From Cortizone-10] BLOOD SUGAR topiramate [From TOPAMAX] AdvReac Unknown AGITATION Verified 10/31/23 13:38 From PLAVIX Allergy Unknown PT UNSURE Uncoded 09/27/23 09:49 OF REACTION Medical tape Allergy Unknown Rash Uncoded 09/27/23 09:49 PMFSH Past Medical History Medical History Chronic kidney disease, stage 4 (severe) Type 2 diabetes mellitus Obesity Skin abrasion HARRIET (renal artery stenosis) Left bundle branch block Nonischemic cardiomyopathy Urinary incontinence GERD (gastroesophageal reflux disease) COVID-19 Pneumonia due to COVID-19 virus Vertigo Obesity (BMI 30-39.9) Depression Anxiety Stasis edema of both lower extremities Cardiomyopathy Pure hypercholesterolemia Hyperkalemia Renal artery stenosis Benign essential hypertension Conjunctival hemorrhage of right eye Surgical History Hx of colonoscopy Hx of myomectomy History of cataract surgery History of lumpectomy of left breast History of cholecystectomy Family History Family History Father CVD (cardiovascular disease) Myocardial infarction Mother Myocardial infarction CVD (cardiovascular disease) Brother Myocardial infarction Family/Other FH: prostate cancer Social History Social History Household Members: None Housing: Apartment Do you presently have visiting nurse or other home services: No Alcohol intake: never Patient Tobacco Use Status: Former Tobacco user Tobacco use type: Cigarette Smoked in Last 30 Days: No e-Cigarette/Vaping Use: Never Used Second Hand Smoke Exposure: No Use of substances other than those prescribed or required for medical reasons: No Advance Directives: Yes Advance Directives on File: Yes Advance Directives Date on File: 08/06/21 service: No Current occupational status: disabled Cognitive needs: No Hearing needs: No Vision needs: Yes Physical Exam ED Vital Signs: Vital Signs - 24 hr 12/12/23 12:40 12/12/23 15:08 12/12/23 15:09 Temperature 98.3 F 98.3 F Pulse Rate 79 69 Respiratory Rate 16 18 Blood Pressure 150/65 H 132/45 L Pulse Oximetry 100 99 99 Oxygen Delivery Method Room Air Room Air Room Air BMI result Body Mass Index 31.1 Const Other: The patient is a frail looking 78-year-old who was awake and alert. She has a very soft voice but does not seem in acute distress HENMT Other: Face is symmetrical. The pharynx is unremarkable. Eyes Other: Pupils are round, equal, and reactive to light, extraocular movements intact, conjunctivae clear Neck Other: No cervical adenopathy Resp Effort & Inspection: normal respiratory effort Auscultation: clear to auscultation bilaterally Cardio Rate: regular rate Rhythm: regular rhythm Heart sounds: S1 normal heart sound present and S2 normal heart sound present GI Other: Abdomen is soft and nontender Skin Other: Skin is pale and dry, no rash Neuro Other: The patient is awake and alert. She has a soft voice but her speech is otherwise normal. Face is symmetrical. Strength in extremities is symmetrical. Grossly neurologically intact. Extrem Other: No pitting edema Medications Administered Discontinued Medications Generic Name Dose Route Start Last Admin Trade Name Freq PRN Reason Stop Dose Admin Acetaminophen 975 mg 12/12/23 14:37 12/12/23 15:06 Acetaminophen 325 Mg Tablet PO 12/12/23 14:38 975 mg ONCE ONE Administration Medical Decision Making Medical Decision Making [facility] Narrative: The patient is a very pleasant 78-year-old who has COVID. She was apparently exposed to someone who was sick 4 days ago. She tested positive for COVID yesterday and felt worse today. Here she does not seem septic. She does not seem to have any comorbidities. Specifically she was describing urinary symptoms and she has an unremarkable UA. Apparently she is already discussed with her primary care doctor whether she should COVID and they agreed to avoid Paxlovid. I think this is reasonable. She seems quite stable here. She was reassured and discharged. Lab Data 12/12/23 15:38 12/12/23 15:38 Labs: Lab Results 12/12/23 12/12/23 12/12/23 Range/Units 14:14 15:32 15:35 WBC (4.8-10.8) X10*3/uL RBC (4.20-5.50) X10*6/uL Hgb (12.0-16.0) g/dl Hct (37.0-47.0) % MCV (80.0-98.0) fL MCH (27.0-33.0) pg MCHC (31.0-35.0) g/dl RDW (11.0-16.0) % Plt Count (160-400) X10*3/uL MPV (9.4-12.3) fL Immature Gran % (Auto) (0.0-0.4) % Neut % (Auto) (45-73) % Lymph % (Auto) (20-40) % [place] % (Auto) (2-11) % Eos % (Auto) (0-4) % Baso % (Auto) (0-2) % Lymph # (Auto) (1.2-4.9) X10*3/uL [place] # (Auto) (0.1-1.2) X10*3/uL Eos # (Auto) (0.0-0.4) X10*3/uL Baso # (Auto) (0.0-0.2) X10*3/uL Abs Immat Gran (auto) (0.00-0.03) X10*3/uL Absolute Neuts (auto) (2.0-8.3) x10*3/uL Absolute Nucleated RBC (0.0-0.012) X10*3/uL Nucleated RBC % (auto) (0.0-0.2) /100WBC Smear Tech's Comments Sodium (135-145) mmol/L Potassium (3.3-5.1) mmol/L Chloride (96-108) mmol/L Carbon Dioxide (22-29) mmol/L Anion Gap (12-20) BUN (9-16) mg/dL Creatinine (0.5-1.4) mg/dL Estim Creat Clear Calc Estimated GFR POC Glucose 119 H (60-115) mg/dL Random Glucose (60-115) mg/dL Calcium (8.4-10.2) mg/dL Total Bilirubin (0.0-1.0) mg/dL Direct Bilirubin (0.0-0.5) mg/dL AST (5-31) U/L ALT (0-31) U/L Alkaline Phosphatase (39-117) U/L C-Reactive Protein (< or = 0.50) mg/dL Total Protein (6.5-8.0) g/dL Albumin (3.5-5.0) g/dL Urine Color Yellow Urine Appearance Clear Urine pH 6.5 (5.0-9.0) Ur Specific [place] <= 1.005 (1.005-1.025) Urine Protein 30 (1+) H (Neg-Trace) mg/dL Urine Glucose (UA) Negative (Negative) mg/dL Urine Ketones Negative (Negative) mg/dL Urine Blood Moderate (2+) H (Negative) Urine Nitrite Negative (Negative) Ur Leukocyte Esterase Negative (Negative) Urine RBC 0-2 (0-2) /HPF Urine WBC 0-5 (0-5) /HPF Ur Squamous Epith Cells 0-2 (0-2) /HPF Urine Bacteria None Seen (None Seen) Hyaline Casts 0-2 (0-2) /LPF Influenza Type A (PCR) NEGATIVE (Negative) Influenza Type B (PCR) NEGATIVE (Negative) RSV RNA Qual (PCR) NEGATIVE (Negative) SARS-CoV-2 RNA (RT-PCR) POSITIVE A (Negative) 12/12/23 Range/Units 15:38 WBC 7.4 (4.8-10.8) X10*3/uL RBC 3.80 L (4.20-5.50) X10*6/uL Hgb 10.2 L (12.0-16.0) g/dl Hct 32.2 L (37.0-47.0) % MCV 84.7 (80.0-98.0) fL MCH 26.8 L (27.0-33.0) pg MCHC 31.7 (31.0-35.0) g/dl RDW 17.2 H (11.0-16.0) % Plt Count 214 D (160-400) X10*3/uL MPV 10.8 (9.4-12.3) fL Immature Gran % (Auto) 0.4 (0.0-0.4) % Neut % (Auto) 69.0 (45-73) % Lymph % (Auto) 12.7 L (20-40) % [place] % (Auto) 16.9 H (2-11) % Eos % (Auto) 0.5 (0-4) % Baso % (Auto) 0.5 (0-2) % Lymph # (Auto) 0.9 L (1.2-4.9) X10*3/uL [place] # (Auto) 1.3 H (0.1-1.2) X10*3/uL Eos # (Auto) 0.0 (0.0-0.4) X10*3/uL Baso # (Auto) 0.0 (0.0-0.2) X10*3/uL Abs Immat Gran (auto) 0.03 (0.00-0.03) X10*3/uL Absolute Neuts (auto) 5.1 (2.0-8.3) x10*3/uL Absolute Nucleated RBC 0.000 (0.0-0.012) X10*3/uL Nucleated RBC % (auto) 0.0 (0.0-0.2) /100WBC Smear Tech's Comments VERIFIED Sodium 132 L (135-145) mmol/L Potassium 4.0 (3.3-5.1) mmol/L Chloride 100 (96-108) mmol/L Carbon Dioxide 21 L (22-29) mmol/L Anion Gap 15 (12-20) BUN 32 H (9-16) mg/dL Creatinine 2.62 H (0.5-1.4) mg/dL Estim Creat Clear Calc 15.1 Estimated GFR 18 POC Glucose (60-115) mg/dL Random Glucose 100 (60-115) mg/dL Calcium 9.6 (8.4-10.2) mg/dL Total Bilirubin 0.8 (0.0-1.0) mg/dL Direct Bilirubin 0.4 (0.0-0.5) mg/dL AST 38 H (5-31) U/L ALT 26 (0-31) U/L Alkaline Phosphatase 88 (39-117) U/L C-Reactive Protein 5.99 H (< or = 0.50) mg/dL Total Protein 7.5 (6.5-8.0) g/dL Albumin 4.0 (3.5-5.0) g/dL Urine Color Urine Appearance Urine pH (5.0-9.0) Ur Specific [place] (1.005-1.025) Urine Protein (Neg-Trace) mg/dL Urine Glucose (UA) (Negative) mg/dL Urine Ketones (Negative) mg/dL Urine Blood (Negative) Urine Nitrite (Negative) Ur Leukocyte Esterase (Negative) Urine RBC (0-2) /HPF Urine WBC (0-5) /HPF Ur Squamous Epith Cells (0-2) /HPF Urine Bacteria (None Seen) Hyaline Casts (0-2) /LPF Influenza Type A (PCR) (Negative) Influenza Type B (PCR) (Negative) RSV RNA Qual (PCR) (Negative) SARS-CoV-2 RNA (RT-PCR) (Negative) Discharge Plan Discharge Clinical Impression: COVID Patient Disposition: Home, Self-Care Instructions: COVID-19 (Coronavirus Disease 2019) (ED) Additional Instructions: Your testing does not suggest that you have any problem other than COVID today. There is no indication of a urinary tract infection or other additional infection. Please continue your regular medications at home. Drink lot of fluids. You may take 2 extra-strength acetaminophen (Tylenol) up to 3 times a day as needed for discomfort. Please stay in touch with your regular doctor for additional advice over the phone as needed. Return to the emergency room if you feel significantly worse. Prescriptions: No Action nystatin 100,000 unit/gram powder 1 appl topical TID PRN (Reason: rash) 14 Days Qty: 30 0RF Adult Multivitamin Gummies 200 mcg tablet,chewable 1 tab PO DAILY Qty: 90 1RF clotrimazole-betamethasone 1-0.05 % cream 1 appl topical BID PRN (Reason: rash) Qty: 30 2RF (DME) OneTouch Ultra Test Strip See Rx Instructions .ROUTE .COMPLEX Qty: 100 5RF Dose Instruction: USE DIRECTED TO TEST BLOOD SUGAR FOUR TIMES DAILY Rx Instructions: USE DIRECTED TO TEST BLOOD SUGAR FOUR TIMES DAILY metformin 500 mg tablet 250 mg PO BID 90 Days Qty: 90 1RF pantoprazole 40 mg tablet,delayed release (DR/EC) 40 mg PO DAILY Qty: 90 3RF dulaglutide 1.5 mg/0.5 mL pen injector 1.5 mg subcut QWEEK 28 Days Qty: 2 3RF ciclopirox 0.77 % cream 1 applic topical BID cholecalciferol (vitamin D3) [Vitamin D3] 25 mcg (1,000 unit) Tablet 25 mcg PO DAILY Systane Balance 0.6 % Drops 1 drp OPHTHALMIC (EYE) BID PRN (Reason: Dry Eye(S)) lidocaine 5 % adhesive patch,medicated 1 patch topical DAILY Qty: 15 0RF Rx Instructions: leave on most painful area for up to 12 hrs buspirone 7.5 mg tablet 7.5 mg PO DAILY alprazolam 0.5 mg tablet 0.5 mg PO BID PRN (Reason: Anxiety) acetaminophen [Tylenol Extra Strength] 500 mg tablet 500 mg PO .TWICE A DAY PRN (Reason: Pain) alum-mag hydroxide-simeth 200-200-20 mg/5 mL suspension 10 ml PO ONCE PRN (Reason: Stomach Upset) Rx Instructions: administer between meals and at bedtime (DME) lancets [OneTouch Delica Plus Lancet] 33 gauge misc See Rx Instructions .ROUTE .COMPLEX Qty: 200 5RF Dose Instruction: USE FOUR TIMES DAILY Rx Instructions: USE FOUR TIMES DAILY rosuvastatin 40 mg tablet 40 mg PO DAILY 90 Days Qty: 90 1RF carvedilol 6.25 mg tablet 6.25 mg PO BID 90 Days Qty: 180 1RF spironolactone [Aldactone] 25 mg tablet 25 mg PO BEDTIME 90 Days Qty: 90 1RF (DME) compr.stocking,knee,long,large Misc See Rx Instructions .Route Qty: 2 0RF Rx Instructions: As directed polyethylene glycol 3350 17 gram powder in packet 17 g PO DAILY 90 Days Qty: 100 5RF sennosides 8.6 mg tablet 17.2 mg PO DAILY 30 Days Qty: 180 4RF furosemide 20 mg tablet 10 mg PO QAM Interventions: ED Discharge Assessment Last Done: 12/12/23 17:15 Discharge Date/Time: 12/12/23 17:16
[2023-12-12] MEDS: Acetaminophen 325 MG TABLET 975 MG PO (15:06)
[2023-12-12 15:08] VITALS: BP 132/45; PULSE 69; RESP 18; TEMP 36.8; O2SAT 99
[2023-12-12 15:09] VITALS: O2SAT 99
[2023-12-12 15:45] LABS: Appearance Urine Clear; Color Urine Yellow; Glucose Urine UA Negative (Negative); Leukocyte Esterase Urine Negative (Negative); Nitrite Urine Negative (Negative); PH 6.5 (5.0-9.0); Specific Gravity - Urine <= 1.005 (1.005-1.025); UMIC TRIGGER UACC YES; Urine Blood Moderate (2+) (Negative); Urine Ketones Negative (Negative); Urine Protein 30 (1+) mg/dL (Neg-Trace)
[2023-12-12 15:49] LABS: Basophils Percent Auto 0.5 % (0-2); Eosinophils Percent Auto 0.5 % (0-4); Hematocrit 32.2 % (37.0-47.0); Hemoglobin 10.2 g/dl (12.0-16.0); Imm Gran Abs Auto 0.03 X10*3/uL (0.00-0.03); Imm Gran Pct Auto 0.4 % (0.0-0.4); Lymphocytes Absolute Auto 0.9 X10*3/uL (1.2-4.9); Lymphocytes Percent Auto 12.7 % (20-40); MANUAL DIFF FLAG SCAN; Mean Corpuscular HGB Conc 31.7 g/dl (31.0-35.0); Mean Corpuscular Hemoglobin 26.8 pg (27.0-33.0); Mean Corpuscular Volume 84.7 fL (80.0-98.0); Mean Platelet Volume 10.8 fL (9.4-12.3); Monocytes Absolute Auto 1.3 X10*3/uL (0.1-1.2); Monocytes Percent Auto 16.9 % (2-11); Neutrophils Absolute Auto 5.1 x10*3/uL (2.0-8.3); PLT CLUMP 1; Red Cell Distribution Width 17.2 % (11.0-16.0); SCAN SMEAR FLAG 1
[2023-12-12 16:08] LABS: Bacteria Urine None Seen (None Seen); Hyaline Casts Urine 0-2 /LPF (0-2); RBC Urine 0-2 /HPF (0-2); Squamous Epithelial Cell Urine 0-2 /HPF (0-2); WBC Urine 0-5 /HPF (0-5)
[2023-12-12 16:09] LABS: Alanine Aminotransferase 26 U/L (0-31); Alkaline Phosphatase 88 U/L (39-117); Anion Gap 15 (12-20); Aspartate Amino Transferase 38 U/L (5-31); Bilirubin Direct 0.4 mg/dL (0.0-0.5); Bilirubin Total 0.8 mg/dL (0.0-1.0); Blood Urea Nitrogen 32 mg/dL (9-16); C Reactive Protein 5.99 mg/dL (< or = 0.50); Calcium 9.6 mg/dL (8.4-10.2); Carbon Dioxide 21 mmol/L (22-29); Chloride 100 mmol/L (96-108); Creatinine Clr Calc Pharmacy 15.1; Estimated Glomerular Filt Rate 18; Glucose Random 100 mg/dL (60-115); Sodium 132 mmol/L (135-145); Total Protein 7.5 g/dL (6.5-8.0)
[2023-12-12 16:15] LABS: Platelet Count 214 X10*3/uL (160-400); White Blood Count 7.4 X10*3/uL (4.8-10.8)
[2023-12-12 16:16] LABS: SLIDE REVIEW VERIFIED
--- NOTE | 2023-12-12 16:30 | PC.NURSE ---
late entry: pt a&o x4, pleasant, calm, and cooperative. pt sts her BP was lower than normal reading 105/55. on EMS arrival, pt BP elevated as well as on arrival to ED. pt speaking in full complete sentences. walked from EMS stretcher to ED stretcher. ambulates to bathroom with walker with slow, steady gait. poc checked and documented per pt stating she is a diabetic. labs and UA obtained. pt reports 8/10 headache, swollen lymph nodes, losing voice, and sore throat. pt resting quietly on stretcher in no apparent distress. rr even/unlabored. call lamas within reach. plan of care ongoing.
[2023-12-12 16:31] LABS: Influenza A PCR NEGATIVE (Negative); Influenza B PCR NEGATIVE (Negative); Resp Syncy Virus RNA Qual PCR NEGATIVE (Negative); SARS COV2 PCR INHOUSE POSITIVE (Negative)
== END 2023-12-12 17:16 | disposition home or self-care (01) ==
PROVIDERS: Emergency Provider Emergency Medicine; PCP Internal Medicine
DX: U07.1 COVID-19 (principal); I10 Essential (primary) hypertension; E11.9 Type 2 diabetes mellitus without complications; E78.00 Pure hypercholesterolemia, unspecified; Z79.84 Long term (current) use of oral hypoglycemic drugs; Z79.85 Long-term (current) use of injectable non-insulin antidiabetic drugs; Z79.899 Other long term (current) drug therapy; Z79.02 Long term (current) use of antithrombotics/antiplatelets
CPT/HCPCS: 0241U; 80048; 80076; 81001; 82947; 85025; 86140; 99283; 99285

== ENCOUNTER 2023-12-24 10:28 | Outpatient (AMB) | payer OTHER, SELFPAY ==
[2023-12-24 10:29] VITALS: BP 138/60; PULSE 69; O2SAT 98; BMI 29.5
--- NOTE | 2023-12-24 10:29 | MHC.PC.OV ---
Vital Signs 12/24/23 10:29 Height 5 ft Weight 151 lb 0.4 oz BMI 29.5 BP 138/60 Blood Pressure Location Lt brachial Position Sitting Pulse 69 Pulse Source Pulse Oximeter Pulse Oximetry (%) 98 Oxygen Delivery Method Room Air Intake Visit Reasons: DM, CKD, hyperlipidemia, HTN Intake Note: Patient is here to follow up on DM, CKD, hyperlipidemia, HTN Appliance Fixer Required: No Allergies aspirin [Aspirin] Allergy (Severe, Verified 01/04/24 11:42) MOUTH SWELLING hydrochlorothiazide [Hydrochlorothiazide] Allergy (Intermediate, Verified 01/04/24 11:42) DROP IN BLOOD PRESSURE Penicillins [PENICILLINS] Allergy (Intermediate, Verified 01/04/24 11:42) ITCHING caffeine [Caffeine] Allergy (Mild, Verified 01/04/24 11:42) NERVOUSNESS lisinopril [Lisinopril] Allergy (Mild, Verified 01/04/24 11:42) CHANGES IN BLOOD PRESSURE ranitidine [RANITIDINE] Allergy (Mild, Verified 01/04/24 11:42) HEADACHE amlodipine [AMLODIPINE] Allergy (Unknown, Verified 01/04/24 11:42) UNKNOWN amoxicillin Allergy (Unknown, Verified 01/04/24 11:42) itching, severe with rash diclofenac Allergy (Unknown, Verified 01/04/24 11:42) Unknown escitalopram Allergy (Unknown, Verified 01/04/24 11:42) abdominal discomfort, drowsiness esomeprazole [Nexium] Allergy (Unknown, Verified 01/04/24 11:42) Unknown isosorbide [ISOSORBIDE] Allergy (Unknown, Verified 01/04/24 11:42) UNKNOWN lidocaine [Lidoderm] Allergy (Unknown, Verified 01/04/24 11:42) weakness mirtazapine Allergy (Unknown, Verified 01/04/24 11:42) Unknown nystatin Allergy (Unknown, Verified 01/04/24 11:42) rash sertraline [SERTRALINE] Allergy (Unknown, Verified 01/04/24 11:42) UNKNOWN dexlansoprazole [From DEXILANT] Adverse Reaction (Severe, Verified 01/04/24 11:42) AGITATION hydrocortisone [From Cortizone-10] Adverse Reaction (Mild, Verified 01/04/24 11:42) RAISES BLOOD SUGAR topiramate [From TOPAMAX] Adverse Reaction (Unknown, Verified 01/04/24 11:42) AGITATION From PLAVIX Allergy (Unknown, Uncoded 12/25/23 12:55) PT UNSURE OF REACTION Medical tape Allergy (Unknown, Uncoded 12/25/23 12:55) Rash Medication List - Last Reconciled 01/14/24 by Boaz Astorga MD acetaminophen (Tylenol Extra Strength) 500 mg PO .TWICE A DAY PRN alprazolam 0.5 mg PO BID PRN alum-mag hydroxide-simeth 200-200-20 mg/5 mL 10 mL PO ONCE PRN blood sugar diagnostic (Poll Everywhere Ultra Test strips) USE DIRECTED TO TEST BLOOD SUGAR FOUR TIMES DAILY buspirone 7.5 mg PO DAILY carvedilol 6.25 mg PO BID 90 days cholecalciferol (vitamin D3) (Vitamin D3) 25 mcg PO DAILY ciclopirox 0.77% 1 applic topical BID clotrimazole-betamethasone 1-0.05 % 1 appl topical BID PRN compr.stocking,knee,long,large As directed dulaglutide 1.5 mg subcut QWEEK 4 weeks furosemide 10 mg PO QAM lancets (Poll Everywhere Delica Plus Lancet) USE FOUR TIMES DAILY lidocaine 5% 1 patch topical DAILY metformin 250 mg (1/2 x 500 mg) PO BID 90 days multivit with min-folic acid 200 mcg (Adult Multivitamin Gummies) 1 tab PO DAILY nystatin 1 appl topical TID PRN 14 days pantoprazole 40 mg PO DAILY propylene glycol 0.6% (Systane Balance) 1 drp ophthalmic (eye) BID PRN rosuvastatin 40 mg PO DAILY 90 days semaglutide (Ozempic) 1 mg (0.75 mL) subcut QWEEK 4 weeks sennosides 17.2 mg (2 x 8.6 mg) PO DAILY spironolactone (Aldactone) 25 mg PO BEDTIME 90 days Tobacco use date assessed: 12/24/23 Fall risk assessment: No Falls in past year Last assessed Fall Risk: 12/24/23 Dental Screening Dental Screen Date: 12/24/23 HPI DM, CKD, hyperlipidemia, HTN HPI Details Patient comes in today for her follow up visit States that she feels okay She denies any headaches or dizziness Denies any chest pains, no SOB No nausea/vomiting, no abdominal pain No change in bowel habits noted Needs a few of her Rx refilled Had her follow up labs done a couple of weeks ago - to discuss her results [facility] Medical History Chronic kidney disease, stage 4 (severe) Type 2 diabetes mellitus Obesity Skin abrasion HARRIET (renal artery stenosis) Left bundle branch block Nonischemic cardiomyopathy Urinary incontinence GERD (gastroesophageal reflux disease) COVID-19 Pneumonia due to COVID-19 virus Vertigo Obesity (BMI 30-39.9) Depression Anxiety Stasis edema of both lower extremities Cardiomyopathy Pure hypercholesterolemia Hyperkalemia Renal artery stenosis Benign essential hypertension Conjunctival hemorrhage of right eye Surgical History Hx of colonoscopy Hx of myomectomy History of cataract surgery History of lumpectomy of left breast History of cholecystectomy Family History Father CVD (cardiovascular disease) Myocardial infarction Mother Myocardial infarction CVD (cardiovascular disease) Brother Myocardial infarction Family/Other FH: prostate cancer Social History Household Members: None Housing: Apartment Do you presently have visiting nurse or other home services: No Alcohol intake: never Patient Tobacco Use Status: Former Tobacco user Tobacco use type: Cigarette e-Cigarette/Vaping Use: Never Used Second Hand Smoke Exposure: No Advance Directives Date on File: 08/06/21 service: No Current occupational status: disabled Cognitive needs: No Hearing needs: No Vision needs: Yes Questionnaire PHQ-9 Over the last 2 weeks, how often have you been bothered by any of the following problems? 1. Little interest or pleasure in doing things: not at all 2. Feeling down, depressed, or hopeless: not at all 3. Trouble falling or staying asleep, or sleeping too much: not at all 4. Feeling tired or having little energy: not at all 5. Poor appetite or overeating: not at all 6. Feeling bad about yourself - or that you are a failure or have let yourself or your family down: not at all 7. Trouble concentrating on things, such as reading the newspaper or watching television: not at all 8. Moving or speaking so slowly that other people could have noticed. Or the opposite - being so fidgety or restless that you have been moving around a lot more than usual: not at all 9. Thoughts that you would be better off or of hurting yourself in some way: not at all Total score: 0 Depression Screening Interpretation: Negative Depression Screening Done: Yes [id number] - PHQ-9 Billing: Yes Source: Developed by Drs. Kayden Gonzalez, Alka Silver, Harjit Rush and colleagues, with an educational vlad from [employer]. Thrive Questionnaire Date Thrive assessed: 12/24/23 I am a: Patient What is your living situation today?: I have a steady place to live Within the past 12 months, did the food you bought not last and you didn't have the money to get more?: Never true Within the past 12 months, did you worry whether your food would run out before you got money to buy more?: Never true Do you have trouble paying for medicines?: No Do you have trouble getting transportation to medical appointments?: No Do you have trouble paying your heating and electricity bill?: No Do you have trouble taking care of your child, family member or friend?: No Do you have trouble with day-to-day activities such as bathing, preparing meals, shopping, managing finances, etc.?: No Are you currently unemployed and looking for a job?: No Are you interested in more education?: No Please select the resources that you would like help with: None Currently or been in a relationship where the following occur: no concerns reported THRIVE Score: 0 AUDIT C Alcohol Use Questionnaire (AUDIT-C) 1. How often do you have a drink containing alcohol?: Never 3. How often do you have six or more drinks on one occasion?: Never Total Score: 0 Score Reviewed/Action Taken: Yes VIKRAM-7 AMB Questionnaire VIKRAM-7 Date VIKRAM - 7 assessed: 12/24/23 Source: Developed by Drs. Kayden Gonzalez, Harjit Neal and colleagues, with an educational vlad from [employer]. Review of Systems Const Denies chills, Reports fatigue, Denies fever(s) and Denies headache(s) ENT Denies dysphagia, Denies dizziness, Denies otalgia, Denies headache(s), Denies neck pain, Denies odynophagia and Denies sore throat Card Denies chest pain, Denies palpitations and Denies dyspnea Resp Denies chest congestion, Denies cough, Denies dyspnea and Denies wheezing GI Denies abdominal pain, Denies constipation, Denies dysphagia, Denies heartburn, Denies diarrhea, Denies nausea, Denies odynophagia and Denies vomiting Denies difficulty voiding, Denies nocturia, Denies dysuria, Reports urinary incontinence and Denies urinary urgency Musc Denies back pain and Denies neck pain Skin/Breast Denies rash Neuro Denies dizziness and Denies headache(s) Psych Reports anxiety Endo Reports fatigue and Denies palpitations Aller/Immun Denies wheezing Physical exam (Primary Care) Vital Signs: Last Vital Signs Pulse 69 12/24/23 10:29 BP 138/60 12/24/23 10:29 Pulse Ox 98 12/24/23 10:29 Oxygen Delivery Method Room Air 12/24/23 10:29 BMI result Body Mass Index 29.5 Tobacco/Smoking Status: Tobacco use Status Tobacco use date assessed 12/24/23 12/24/23 10:30 Patient Tobacco Use Status Former Tobacco user 12/24/23 10:30 Tobacco use type Cigarette 12/24/23 10:30 e-Cigarette/Vaping Use Never Used 12/24/23 10:30 Depression Screening Interpretation: Negative Thrive Assessment: Date of Thrive Assessment Date Thrive assessed 12/24/23 12/24/23 10:33 Currently or been in a relationship where the following occur: no concerns reported Const General: no acute distress and alert HENMT Ears: TM's normal bilaterally and EAC's normal Throat: Yes posterior oropharynx normal and Yes tonsils normal (no TP congestion noted) Neck Neck: Yes no lymphadenopathy and Yes supple Thyroid: Thyroid normal Resp Auscultation: clear to auscultation bilaterally, no rales and no wheezes Cardio Rate: regular rate Rhythm: regular rhythm Heart sounds: no murmurs GI Palpation (GI): Soft to palpation and nontender Auscultation: normal bowel sounds General: Yes no CVA tenderness Back/Spine/Pelvis Back: no CVA tenderness Thoracic/Lumbar Spine: No lumbar spinal tenderness Skin Rashes: no rashes Extrem General: Yes no clubbing, cyanosis or edema Results Reviewed Results Reviewed: Laboratory Tests 12/12/23 12/12/23 12/12/23 15:32 15:35 15:38 WBC 7.4 Hgb 10.2 L Hct 32.2 L Plt Count 214 D Sodium 132 L Potassium 4.0 Creatinine 2.62 H Estimated GFR 18 Random Glucose 100 Calcium 9.6 AST 38 H ALT 26 C-Reactive Protein Ur Specific [place] <= 1.005 Urine Protein 30 (1+) H Urine Glucose (UA) Negative Urine Blood Moderate (2+) H Urine Nitrite Negative Ur Leukocyte Esterase Negative SARS-CoV-2 RNA (RT-PCR) POSITIVE A 12/12/23 15:38 WBC Hgb Hct Plt Count Sodium Potassium Creatinine Estimated GFR Random Glucose Calcium AST ALT C-Reactive Protein 5.99 H Ur Specific [place] Urine Protein Urine Glucose (UA) Urine Blood Urine Nitrite Ur Leukocyte Esterase SARS-CoV-2 RNA (RT-PCR) Laboratory Tests 10/30/23 13:40 Fasting Glucose 165 H Hemoglobin A1c % 8.2 H Triglycerides 81 Cholesterol 126 LDL Cholesterol, Calc 61 HDL Cholesterol 49 25-OH Vitamin D Total 37.7 Assessment and Plan Assessment & Plan (1) Benign essential hypertension: Code(s): I10 - Essential (primary) hypertension Plan: Reinforced low sodium diet - goal is systolic BP of at least 130 to 140 mm or less Continue Carvedilol 6.25 mg BID and Spironolactone 25 mg QD; she is also on Furosemide 10 mg QD Her Losartan was HELD previously and she is advised to NOT start back on this unless she is instructed to do so Follow up with cardiology as scheduled (2) Cardiomyopathy: Code(s): I42.9 - Cardiomyopathy, unspecified Qualifiers: Cardiomyopathy type: unspecified Qualified Code(s): I42.9 - Cardiomyopathy, unspecified Plan: Continue Carvedilol 6.25 mg BID Patient had a stress test and nuclear MIBI done at [facility] [place] a couple of years ago - both tests came back normal BNP also came back normal when checked previously Follow up with cardiology as scheduled (3) Renal artery stenosis: Code(s): I70.1 - Atherosclerosis of renal artery Plan: Has left HARRIET (seen on renal artery doppler) and will be considered for renal angioplasty if necessary BP has improved a lot with the addition of Spironolactone Will continue to observe her for now Follow up with nephrology (Dr. Madrigal) as scheduled (4) Chronic kidney disease, stage 4 (severe): Code(s): N18.4 - Chronic kidney disease, stage 4 (severe) Plan: Patient's serum creatinine and GFR/renal function appear stable on her recent labs - will continue to monitor her GFR and serum creatinine closely Follow up with nephrology (Dr. Madrigal) as scheduled - nephrology recommended adding an SGLT-2 inhibitor and patient may be able to come off Metformin Patient was previously referred to endocrinology and she believes that she is now seeing somebody for her diabetes although I have not received any correspondence yet from any endocrinology practice - will try to look into this If she is seeing endocrinology now, I will leave it up to the discretion of endocrinology whether they want to start her on an SGLT-2 inhbitor and take her off Metformin or not (5) Type 2 diabetes mellitus: Code(s): E11.9 - Type 2 diabetes mellitus without complications Qualifiers: Chronic kidney disease stage: stage 4 (severe) 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 complication detail: with chronic kidney disease 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 complication status: with kidney complications 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 ocean transportation intermediary insulin use: without assisted use Qualified Code(s): E11.22 - Type 2 diabetes mellitus with diabetic chronic kidney disease; N18.4 - Chronic kidney disease, stage 4 (severe) Plan: HgbA1c was at 8.2% on her labs done a couple of weeks ago; was at 8.1% previously a few months ago - goal is <7.0% Reinforced diabetic diet Continue Metformin ER 500 mg QD - dose was lowered from BID previously due to her advancing renal disease Her Trulicity was increased to 1.5 mg SQ once a week at her last visit and she has been tolerating this so far with no problems Glimepiride 1 mg Q AM was added at her last visit but she was later asked to stop the Rx due to hypoglycemia Januvia was also previously discontinued due to recurrent hypoglycemia Nephrology recommended adding an SGLT-2 inhibitor and patient may be able to come off her Metformin completely She was previously referred to endocrinology and she believes that she is now seeing somebody for her diabetes although I have not received any correspondence yet from endocrinology - will try to look into this If she is seeing endocrinology now, I will leave it up to the discretion of endocrinology whether they want to start her on an SGLT-2 inhbitor and take her off Metformin or not (6) Pure hypercholesterolemia: Code(s): E78.00 - Pure hypercholesterolemia, unspecified Plan: Results of her labs done a couple of weeks ago reviewed and discussed with patient Reinforced low cholesterol diet Continue Atorvastatin 80 mg QD Will recheck her labs and fasting lipids in 3 months for follow up (7) Elevated TSH: Code(s): R79.89 - Other specified abnormal findings of blood chemistry Plan: Repeat TFTs were not done with her recent labs Her TSH was normal when last checked in October 2023 Her free T4 and T3 levels were normal and TPO Ab level was high when previously checked, suggesting possible Pb's Patient currently appears clinically euthyroid so no intervention is indicated at this time Will continue to monitor her TFTs regularly (8) Anxiety: Code(s): F41.9 - Anxiety disorder, unspecified Plan: Continue Buspirone 7.5 mg QD and Alprazolam 0.5 mg BID PRN Follow up with psychiatry as scheduled (9) Depression: Code(s): F32.9 - Major depressive disorder, single episode, unspecified Qualifiers: Depression Type: unspecified Qualified Code(s): F32.9 - Major depressive disorder, single episode, unspecified Plan: Follow up with psychiatry as scheduled - patient goes to [facility] (10) Obesity (BMI 30-39.9): Code(s): E66.9 - Obesity, unspecified Plan: Reinforced diet; exercise and weight loss are unrealistic given patient's multiple comorbidities and limited activity tolerance as well as her gait instability - fell recently and reportedly sustained a faint, non-displaced fracture of her left 7th rib Plan Follow up in 3 months Orders: Orders Lipid Panel 3 Months E78.00 - Pure hypercholesterolemia, unspecified Comprehensive [place]. Panel Fast 3 Months E78.00 - Pure hypercholesterolemia, unspecified TSH reflex Free T4 3 Months E78.00 - Pure hypercholesterolemia, unspecified Hemoglobin A1c 3 Months E11.9 - Type 2 diabetes mellitus without complications IRON PROFILE 3 Months D50.9 - Iron deficiency anemia, unspecified Complete Blood Count Auto Diff 3 Months D64.9 - Anemia, unspecified UA CC w/rflx Micro + Cult 3 Months R30.0 - Dysuria Microalbumin, Random (w Creat) 3 Months E11.9 - Type 2 diabetes mellitus without complications Vitamin B12 and Folate 3 Months E53.8 - Deficiency of other specified B group vitamins Vitamin D 25-OH Total 3 Months E55.9 - Vitamin D deficiency, unspecified Medications: Refilled dulaglutide 1.5 mg subcut QWEEK 4 mL 3RF 4 weeks nystatin 1 appl topical TID PRN 30 grams 0RF rash 14 days R21 - Rash and other nonspecific skin eruption clotrimazole-betamethasone 1-0.05 % 1 appl topical BID PRN 30 grams 2RF rash I87.2 - Venous insufficiency (chronic) (peripheral) On Hold dulaglutide Hold Comment: Doctor's Order 1.5 mg subcut QWEEK 4 weeks 4 mL 3RF Coding Level of Care Code Est Pt Level 4 (24160) Diagnoses Benign essential hypertension I10 Cardiomyopathy, unspecified type I42.9 Cardiomyopathy type: unspecified Renal artery stenosis I70.1 Chronic kidney disease, stage 4 (severe) N18.4 Type 2 diabetes mellitus with stage 4 chronic kidney disease, without long-term current use of insulin E11.22; N18.4 Chronic kidney disease stage: stage 4 (severe) 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 complication detail: with chronic kidney disease 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 complication status: with kidney complications 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 ocean transportation intermediary insulin use: without ocean transportation intermediary use Pure hypercholesterolemia E78.00 Elevated TSH R79.89 Anxiety F41.9 Depression, unspecified depression type F32.9 Depression Type: unspecified Obesity (BMI 30-39.9) E66.9
== END 2023-12-24 12:07 | disposition home or self-care (01) ==
PROVIDERS: PCP Internal Medicine; Visit Provider Internal Medicine
DX: I12.9 Hypertensive chronic kidney disease with stage 1 through stage 4 chronic kidney disease, or unspecified chronic kidney disease (principal); I42.9 Cardiomyopathy, unspecified; I70.1 Atherosclerosis of renal artery; N18.4 Chronic kidney disease, stage 4 (severe); E11.22 Type 2 diabetes mellitus with diabetic chronic kidney disease; E78.00 Pure hypercholesterolemia, unspecified; R79.89 Other specified abnormal findings of blood chemistry; F41.9 Anxiety disorder, unspecified; F32.9 Major depressive disorder, single episode, unspecified; E66.9 Obesity, unspecified
CPT/HCPCS: 99214

== ENCOUNTER 2023-12-25 12:24 | Outpatient (AMB) | payer OTHER, SELFPAY ==
[2023-12-25 12:50] VITALS: BP 132/60; PULSE 65; BMI 29.7
--- NOTE | 2023-12-25 12:50 | A.OFFVIS_ITS ---
Intake Vital Signs 12/25/23 12:50 Height 5 ft Weight 152 lb 1.903 oz BMI 29.7 BP 132/60 Blood Pressure Location Lt brachial Position Sitting Pulse 65 Intake Visit Reasons: 1 year follow up Intake Note: 1 year follow up Surgical Physician Assistant Required: No Accompanied by: Self / Same As Patient Allergies aspirin [Aspirin] Allergy (Severe, Verified 12/25/23 12:55) MOUTH SWELLING hydrochlorothiazide [Hydrochlorothiazide] Allergy (Intermediate, Verified 12/25/23 12:55) DROP IN BLOOD PRESSURE Penicillins [PENICILLINS] Allergy (Intermediate, Verified 12/25/23 12:55) ITCHING caffeine [Caffeine] Allergy (Mild, Verified 12/25/23 12:55) NERVOUSNESS lisinopril [Lisinopril] Allergy (Mild, Verified 12/25/23 12:55) CHANGES IN BLOOD PRESSURE ranitidine [RANITIDINE] Allergy (Mild, Verified 12/25/23 12:55) HEADACHE amlodipine [AMLODIPINE] Allergy (Unknown, Verified 12/25/23 12:55) UNKNOWN amoxicillin Allergy (Unknown, Verified 12/25/23 12:55) itching, severe with rash diclofenac Allergy (Unknown, Verified 12/25/23 12:55) Unknown escitalopram Allergy (Unknown, Verified 12/25/23 12:55) abdominal discomfort, drowsiness esomeprazole [Nexium] Allergy (Unknown, Verified 12/25/23 12:55) Unknown isosorbide [ISOSORBIDE] Allergy (Unknown, Verified 12/25/23 12:55) UNKNOWN lidocaine [Lidoderm] Allergy (Unknown, Verified 12/25/23 12:55) weakness mirtazapine Allergy (Unknown, Verified 12/25/23 12:55) Unknown nystatin Allergy (Unknown, Verified 12/25/23 12:55) rash sertraline [SERTRALINE] Allergy (Unknown, Verified 12/25/23 12:55) UNKNOWN dexlansoprazole [From DEXILANT] Adverse Reaction (Severe, Verified 12/25/23 12:55) AGITATION hydrocortisone [From Cortizone-10] Adverse Reaction (Mild, Verified 12/25/23 12:55) RAISES BLOOD SUGAR topiramate [From TOPAMAX] Adverse Reaction (Unknown, Verified 12/25/23 12:55) AGITATION From PLAVIX Allergy (Unknown, Uncoded 12/25/23 12:55) PT UNSURE OF REACTION Medical tape Allergy (Unknown, Uncoded 12/25/23 12:55) Rash Medication List - Last Reconciled 12/25/23 by Juve Aclazar MD acetaminophen (Tylenol Extra Strength) 500 mg PO .TWICE A DAY PRN alprazolam 0.5 mg PO BID PRN alum-mag hydroxide-simeth 200-200-20 mg/5 mL 10 mL PO ONCE PRN blood sugar diagnostic (Avante Logixx Ultra Test strips) USE DIRECTED TO TEST BLOOD SUGAR FOUR TIMES DAILY buspirone 7.5 mg PO DAILY carvedilol 6.25 mg PO BID 90 days cholecalciferol (vitamin D3) (Vitamin D3) 25 mcg PO DAILY ciclopirox 0.77% 1 applic topical BID clotrimazole-betamethasone 1-0.05 % 1 appl topical BID PRN compr.stocking,knee,long,large As directed dulaglutide 1.5 mg subcut QWEEK 4 weeks furosemide 10 mg PO QAM lancets (Flash Auto Detailinguch Delica Plus Lancet) USE FOUR TIMES DAILY lidocaine 5% 1 patch topical DAILY metformin 250 mg (1/2 x 500 mg) PO BID 90 days multivit with min-folic acid 200 mcg (Adult Multivitamin Gummies) 1 tab PO DAILY nystatin 1 appl topical TID PRN 14 days pantoprazole 40 mg PO DAILY polyethylene glycol 3350 17 grams PO DAILY 90 days propylene glycol 0.6% (Systane Balance) 1 drp ophthalmic (eye) BID PRN rosuvastatin 40 mg PO DAILY 90 days sennosides 17.2 mg (2 x 8.6 mg) PO DAILY 30 days spironolactone (Aldactone) 25 mg PO BEDTIME 90 days HPI HPI Comments History of Present Illness Details Alicia returns for follow-up regarding nonischemic cardiomyopathy as well as hypertension. To recall, she has very labile hypertension, compounded by anxiety. Since last seen, she states she is actually doing quite well. No specific complaints. Nothing cardiac sounding. Anxiety still there. [facility] Medical History Chronic kidney disease, stage 4 (severe) Type 2 diabetes mellitus Obesity Skin abrasion HARRIET (renal artery stenosis) Left bundle branch block Nonischemic cardiomyopathy Urinary incontinence GERD (gastroesophageal reflux disease) COVID-19 Pneumonia due to COVID-19 virus Vertigo Obesity (BMI 30-39.9) Depression Anxiety Stasis edema of both lower extremities Cardiomyopathy Pure hypercholesterolemia Hyperkalemia Renal artery stenosis Benign essential hypertension Conjunctival hemorrhage of right eye Surgical History Hx of colonoscopy Hx of myomectomy History of cataract surgery History of lumpectomy of left breast History of cholecystectomy Family History Father CVD (cardiovascular disease) Myocardial infarction Mother Myocardial infarction CVD (cardiovascular disease) Brother Myocardial infarction Family/Other FH: prostate cancer Social History Household Members: None Housing: Apartment Do you presently have visiting nurse or other home services: No Alcohol intake: never Patient Tobacco Use Status: Former Tobacco user Tobacco use type: Cigarette e-Cigarette/Vaping Use: Never Used Second Hand Smoke Exposure: No Advance Directives Date on File: 08/06/21 service: No Current occupational status: disabled Cognitive needs: No Hearing needs: No Vision needs: Yes Review of Systems Const Denies weakness ENT Denies dizziness Card Denies chest pain, Denies chest pain with activity, Denies syncope, Denies rapid heart rate, Denies pedal edema, Denies edema, Denies leg edema, Denies lightheadedness, Denies palpitations, Denies dyspnea, Denies dyspnea on exertion and Denies orthopnea Resp Denies cough, Denies dyspnea and Denies dyspnea on exertion GI Denies hematochezia and Denies change in stool character Musc Denies abnormal gait, Denies muscle cramps, Denies muscle weakness, Denies numbness, Denies radiating pain into limb and Denies tingling Neuro Denies abnormal gait, Denies dizziness, Denies syncope, Denies numbness, Denies tingling and Denies weakness Endo Denies palpitations Physical Exam Vital Signs: Last Vital Signs Pulse 65 12/25/23 12:50 BP 132/60 12/25/23 12:50 BMI result Body Mass Index 29.7 Const General: comfortable and no acute distress Orientation/consciousness: patient oriented x3 HEENT Other: Unremarkable Head: Yes normal to inspection Neck Neck: Yes normal visual inspection Chest Chest palpation & inspection: normal inspection of the chest Resp Auscultation: clear to auscultation bilaterally Cardio Palpation: normal PMI Heart sounds: S1 normal heart sound present, S2 normal heart sound present, no gallops, no murmurs and no rubs GI Palpation (GI): Soft to palpation Back/Spine/Pelvis Other: unremarkable Skin General skin exam: no rashes or lesions noted Neuro General: patient oriented x3 Extrem General: Yes normal to inspection Psych Mental Status: mental status grossly normal Assessment & Plan Assessment & Plan (1) Nonischemic cardiomyopathy: Code(s): I42.8 - Other cardiomyopathies Plan: In the last echocardiogram LVEF 45-50%. It has been as low as 25-30% in the past. Clinically, no heart failure symptoms or signs. Remains on Coreg but no longer on losartan. However, she also has renal insufficiency. (2) Left bundle branch block: Code(s): I44.7 - Left bundle-branch block, unspecified Plan: Chronic finding. Can be followed on EKGs. (3) Essential hypertension: Code(s): I10 - Essential (primary) hypertension Plan: This has been stable recently. In the past, very labile readings. Coding Level of Care Code Est Pt Level 4 (48660) Diagnoses Nonischemic cardiomyopathy I42.8 Left bundle branch block I44.7 Essential hypertension I10
== END 2023-12-25 13:08 | disposition home or self-care (01) ==
PROVIDERS: Visit Provider Internal Medicine
DX: I42.8 Other cardiomyopathies (principal); I44.7 Left bundle-branch block, unspecified; I10 Essential (primary) hypertension
CPT/HCPCS: 99214

== ENCOUNTER → 2023-12-25 12:24 | Outpatient (BNVA) | payer OTHER, SELFPAY | PROVIDERS: Visit Provider Internal Medicine | DX: I42.8 Other cardiomyopathies (principal); I44.7 Left bundle-branch block, unspecified; I10 Essential (primary) hypertension | CPT/HCPCS: 99212 ==

== ENCOUNTER 2024-01-04 11:34 | Outpatient (AMB) | payer OTHER, SELFPAY ==
[2024-01-04 11:43] VITALS: BP 149/67; PULSE 71; BMI 29.7
--- NOTE | 2024-01-04 11:43 | A.OFFVIS_ITS ---
Intake Vital Signs 01/04/24 11:43 Height 5 ft Weight 152 lb BMI 29.7 BP 149/67 H Blood Pressure Location Lt brachial Position Sitting Pulse 71 Intake Visit Reasons: 6 month follow up Intake Note: Patient follow up for Chronic Constipation. Patient cc: acid reflex on and off, denies any other GI issues. Drapery Inspector Required: No Accompanied by: Self / Same As Patient Allergies aspirin [Aspirin] Allergy (Severe, Verified 01/04/24 11:42) MOUTH SWELLING hydrochlorothiazide [Hydrochlorothiazide] Allergy (Intermediate, Verified 01/04/24 11:42) DROP IN BLOOD PRESSURE Penicillins [PENICILLINS] Allergy (Intermediate, Verified 01/04/24 11:42) ITCHING caffeine [Caffeine] Allergy (Mild, Verified 01/04/24 11:42) NERVOUSNESS lisinopril [Lisinopril] Allergy (Mild, Verified 01/04/24 11:42) CHANGES IN BLOOD PRESSURE ranitidine [RANITIDINE] Allergy (Mild, Verified 01/04/24 11:42) HEADACHE amlodipine [AMLODIPINE] Allergy (Unknown, Verified 01/04/24 11:42) UNKNOWN amoxicillin Allergy (Unknown, Verified 01/04/24 11:42) itching, severe with rash diclofenac Allergy (Unknown, Verified 01/04/24 11:42) Unknown escitalopram Allergy (Unknown, Verified 01/04/24 11:42) abdominal discomfort, drowsiness esomeprazole [Nexium] Allergy (Unknown, Verified 01/04/24 11:42) Unknown isosorbide [ISOSORBIDE] Allergy (Unknown, Verified 01/04/24 11:42) UNKNOWN lidocaine [Lidoderm] Allergy (Unknown, Verified 01/04/24 11:42) weakness mirtazapine Allergy (Unknown, Verified 01/04/24 11:42) Unknown nystatin Allergy (Unknown, Verified 01/04/24 11:42) rash sertraline [SERTRALINE] Allergy (Unknown, Verified 01/04/24 11:42) UNKNOWN dexlansoprazole [From DEXILANT] Adverse Reaction (Severe, Verified 01/04/24 11:42) AGITATION hydrocortisone [From Cortizone-10] Adverse Reaction (Mild, Verified 01/04/24 11:42) RAISES BLOOD SUGAR topiramate [From TOPAMAX] Adverse Reaction (Unknown, Verified 01/04/24 11:42) AGITATION From PLAVIX Allergy (Unknown, Uncoded 12/25/23 12:55) PT UNSURE OF REACTION Medical tape Allergy (Unknown, Uncoded 12/25/23 12:55) Rash HPI 6 month follow up HPI Details LAST VISIT: GERD (gastroesophageal reflux disease) Continue pantoprazole every morning half an hour before breakfast. Continue avoiding dietary triggers and late night snacking. Staying upright for minimum 3 hours after meals discussed with patient Chronic idiopathic constipation Continue MiraLax in the morning and Senokot at night time. Patient was encouraged to increase fluid intake and activity to promote better bowel motility. I will see patient in 6 months, sooner on as needed basis if patient is agreeable to this plan and verbalizes understanding of instructions. She was given the opportunity questions and all questions answered. ? Thank you for allowing me to participate in her care Plan Medications Changed Changed From sennosides 17.2 mg (2 x 8.6 mg) PO DAILY [address] 60 tabs 1RF constipation Changed To sennosides 17.2 mg (2 x 8.6 mg) PO DAILY 30 days 18 0 tabs 4RF constipation Changed From polyethylene glycol 3350 17 grams PO DAILY 90 days PRN 100 ea 5RF constipation Changed To polyethylene glycol 3350 17 grams PO DAILY 90 days 100 ea 5RF con stipation TODAY'S VISIT Patient is here today for follow-up. Patient reports that since last time I have seen her she has been doing fairly well. Patient states that she is doing well on Trulicity last several lb and feels better. Patient reports occasional on and off acid reflux depending on what she eats. Patient usually does not cook her own meals, his CUSTOMS AGENT that helps her with that. Patient states that she is usually eating healthy. Currently patient is taking pantoprazole and her symptoms of acid reflux are suppressed. Patient reports that she has been moving her bowels well with taking senna in the evening. Patient no longer needs to take MiraLax. Patient states that she is moving her bowels without any issues. Denies any melena, hematochezia, unintentional weight loss or ribbon like stools. Patient denies dyspepsia, dysphagia or odynophagia. [facility] Medical History Chronic kidney disease, stage 4 (severe) Type 2 diabetes mellitus Obesity Skin abrasion HARRIET (renal artery stenosis) Left bundle branch block Nonischemic cardiomyopathy Urinary incontinence GERD (gastroesophageal reflux disease) COVID-19 Pneumonia due to COVID-19 virus Vertigo Obesity (BMI 30-39.9) Depression Anxiety Stasis edema of both lower extremities Cardiomyopathy Pure hypercholesterolemia Hyperkalemia Renal artery stenosis Benign essential hypertension Conjunctival hemorrhage of right eye Surgical History Hx of colonoscopy Hx of myomectomy History of cataract surgery History of lumpectomy of left breast History of cholecystectomy Family History Father CVD (cardiovascular disease) Myocardial infarction Mother Myocardial infarction CVD (cardiovascular disease) Brother Myocardial infarction Family/Other FH: prostate cancer Social History Household Members: None Housing: Apartment Do you presently have visiting nurse or other home services: No Alcohol intake: never Patient Tobacco Use Status: Former Tobacco user Tobacco use type: Cigarette e-Cigarette/Vaping Use: Never Used Second Hand Smoke Exposure: No Advance Directives Date on File: 08/06/21 service: No Current occupational status: disabled Cognitive needs: No Hearing needs: No Vision needs: Yes Review of Systems Const Denies weight gain and Denies weight loss ENT Reports no additional complaints, Denies dysphagia and Denies odynophagia Card Reports no additional complaints Resp Reports no additional complaints GI Denies abdominal pain, Denies belching, Denies melena, Denies bloating, Denies change in bowel habits, Denies dysphagia, Denies excessive flatus, Denies dyspepsia, Denies heartburn, Denies diarrhea, Denies loose stools, Denies nausea, Denies odynophagia and Denies vomiting Musc Reports no additional complaints Neuro Reports no additional complaints Psych Reports no additional complaints Endo Reports no additional complaints Physical Exam Vital Signs: Last Vital Signs Pulse 71 03/15/24 11:43 BP 149/67 H 01/04/24 11:43 BMI result Body Mass Index 29.7 Const General: healthy appearing, no acute distress and well developed Nutritional Appearance: obese Orientation/consciousness: patient oriented x3 Resp Effort & Inspection: normal respiratory effort, able to speak in complete sentences, no tracheal deviation and symmetric chest movement Auscultation: clear to auscultation bilaterally Cardio Rate: regular rate GI Inspection: Yes normal to inspection, No distended and Yes obesity Palpation (GI): Soft to palpation, not firm, nontender and No hepatosplenomegaly present Auscultation: normal bowel sounds General: Yes no CVA tenderness Back/Spine/Pelvis Back: no CVA tenderness Skin General skin exam: elasticity normal, turgor normal and dry skin Neuro General: patient oriented x3 Psych Appearance: grossly normal Mental Status: mental status grossly normal Assessment & Plan Assessment & Plan (1) GERD (gastroesophageal reflux disease): Code(s): K21.9 - Gastro-esophageal reflux disease without esophagitis Qualifiers: Esophagitis presence: esophagitis presence not specified Qualified Code(s): K21.9 - Gastro-esophageal reflux disease without esophagitis (2) Chronic idiopathic constipation: Code(s): K59.04 - Chronic idiopathic constipation Plan Patient will continue taking pantoprazole daily. Continue avoiding dietary triggers late night snacking. Staying upright for minimum 3 hours after meals discussed with patient. Patient was encouraged to eat smaller meals and more often. Continue taking Senokot daily. Increase activity to promote better bowel motility. I will see patient in 6 months, sooner on as needed basis. Patient is agreeable to this plan and verbalizes understanding of instructions. She was given the opportunity to ask questions and all questions answered. Thank you for allowing me to participate in her care Medications: Changed From sennosides 17.2 mg (2 x 8.6 mg) PO DAILY 30 days 180 tabs 4RF constipation To sennosides 17.2 mg (2 x 8.6 mg) PO DAILY 180 tabs 4RF constipation Refilled pantoprazole 40 mg PO DAILY 90 tabs 3RF K21.9 - Gastro-esophageal reflux disease without esophagitis Discontinued polyethylene glycol 3350 Discontinued Reason: Doctor's Order 17 grams PO DAILY 90 days 100 ea 5RF constipation Coding Level of Care Code Est Pt Level 3 (72796) Diagnoses Gastroesophageal reflux disease, unspecified whether esophagitis present K21.9 Esophagitis presence: esophagitis presence not specified Chronic idiopathic constipation K59.04 Time Spent (min) 25 Comment 15 minutes spent with patient and additional 10 minutes spent reviewing her records
== END 2024-01-04 12:33 | disposition home or self-care (01) ==
PROVIDERS: PCP Internal Medicine; Visit Provider Nurse Practitioner Family
DX: K21.9 Gastro-esophageal reflux disease without esophagitis (principal); K59.04 Chronic idiopathic constipation
CPT/HCPCS: 99213

== ENCOUNTER → 2024-01-04 11:34 | Outpatient (BNVA) | payer OTHER, SELFPAY | PROVIDERS: PCP Internal Medicine; Visit Provider Nurse Practitioner Family | DX: K21.9 Gastro-esophageal reflux disease without esophagitis (principal); K59.04 Chronic idiopathic constipation; Z79.899 Other long term (current) drug therapy | CPT/HCPCS: 99212 ==

== ENCOUNTER 2024-02-26 14:07 | Outpatient (REF) | payer OTHER, SELFPAY ==
[2024-02-26 14:29] LABS: MANUAL DIFF FLAG NO
[2024-02-26 15:45] LABS: Basophils Absolute Auto 0.1 X10*3/uL (0.0-0.2); Basophils Percent Auto 0.9 % (0-2); Eosinophils Absolute Auto 0.1 X10*3/uL (0.0-0.4); Eosinophils Percent Auto 1.2 % (0-4); Hematocrit 34.5 % (37.0-47.0); Hemoglobin 10.8 g/dl (12.0-16.0); Imm Gran Abs Auto 0.01 X10*3/uL (0.00-0.03); Imm Gran Pct Auto 0.2 % (0.0-0.4); Lymphocytes Absolute Auto 1.2 X10*3/uL (1.2-4.9); Lymphocytes Percent Auto 20.3 % (20-40); Mean Corpuscular HGB Conc 31.3 g/dl (31.0-35.0); Mean Corpuscular Hemoglobin 27.6 pg (27.0-33.0); Mean Corpuscular Volume 88.2 fL (80.0-98.0); Monocytes Absolute Auto 0.8 X10*3/uL (0.1-1.2); Monocytes Percent Auto 13.9 % (2-11); Neutrophils Absolute Auto 3.7 x10*3/uL (2.0-8.3); Neutrophils Percent Auto 63.5 % (45-73); Platelet Count 256 X10*3/uL (160-400); Red Blood Count 3.91 X10*6/uL (4.20-5.50); Red Cell Distribution Width 17.2 % (11.0-16.0); White Blood Count 5.8 X10*3/uL (4.8-10.8)
[2024-02-26 16:34] LABS: Anion Gap 15 (12-20); Blood Urea Nitrogen 32 mg/dL (9-16); Calcium 10.2 mg/dL (8.4-10.2); Carbon Dioxide 20 mmol/L (22-29); Chloride 105 mmol/L (96-108); Estimated Glomerular Filt Rate 17; Phosphorus 2.9 mg/dL (2.7-4.5); Potassium 4.2 mmol/L (3.3-5.1); Sodium 136 mmol/L (135-145)
[2024-02-26 16:38] LABS: Parathyroid Hormone Intact 112.5 pg/mL (8.7-77.1)
== END 2024-02-26 14:08 | disposition home or self-care (01) ==
LOC: HO.LAB 14:07
PROVIDERS: PCP Internal Medicine; Visit Provider Internal Medicine Nephrology
DX: I12.9 Hypertensive chronic kidney disease with stage 1 through stage 4 chronic kidney disease, or unspecified chronic kidney disease (principal); N18.4 Chronic kidney disease, stage 4 (severe); I70.1 Atherosclerosis of renal artery
CPT/HCPCS: 36415; 80051; 82310; 82565; 83970; 84100; 84520; 85025

== ENCOUNTER 2024-02-29 13:56 | Outpatient (AMB) | payer OTHER, SELFPAY ==
[2024-02-29 14:00] VITALS: BP 146/78; PULSE 74; O2SAT 99; BMI 28.7
--- NOTE | 2024-02-29 14:00 | HO.NEPHOV ---
Vital Signs 02/29/24 14:00 Height 5 ft Weight 147 lb BMI 28.7 BP 146/78 H Blood Pressure Location Rt brachial Position Sitting Pulse 74 Pulse Source Pulse Oximeter Pulse Oximetry (%) 99 Oxygen Delivery Method Room Air Intake Visit Reasons: Follow up/ Confirmed Roofer Apprentice Required: No Accompanied by: Self / Same As Patient Allergies aspirin [Aspirin] Allergy (Severe, Verified 02/29/24 14:03) MOUTH SWELLING hydrochlorothiazide [Hydrochlorothiazide] Allergy (Intermediate, Verified 02/29/24 14:03) DROP IN BLOOD PRESSURE Penicillins [PENICILLINS] Allergy (Intermediate, Verified 02/29/24 14:03) ITCHING caffeine [Caffeine] Allergy (Mild, Verified 02/29/24 14:03) NERVOUSNESS lisinopril [Lisinopril] Allergy (Mild, Verified 02/29/24 14:03) CHANGES IN BLOOD PRESSURE ranitidine [RANITIDINE] Allergy (Mild, Verified 02/29/24 14:03) HEADACHE amlodipine [AMLODIPINE] Allergy (Unknown, Verified 02/29/24 14:03) UNKNOWN amoxicillin Allergy (Unknown, Verified 02/29/24 14:03) itching, severe with rash diclofenac Allergy (Unknown, Verified 02/29/24 14:03) Unknown escitalopram Allergy (Unknown, Verified 02/29/24 14:03) abdominal discomfort, drowsiness esomeprazole [Nexium] Allergy (Unknown, Verified 02/29/24 14:03) Unknown isosorbide [ISOSORBIDE] Allergy (Unknown, Verified 02/29/24 14:03) UNKNOWN lidocaine [Lidoderm] Allergy (Unknown, Verified 02/29/24 14:03) weakness mirtazapine Allergy (Unknown, Verified 02/29/24 14:03) Unknown nystatin Allergy (Unknown, Verified 02/29/24 14:03) rash sertraline [SERTRALINE] Allergy (Unknown, Verified 02/29/24 14:03) UNKNOWN dexlansoprazole [From DEXILANT] Adverse Reaction (Severe, Verified 02/29/24 14:03) AGITATION hydrocortisone [From Cortizone-10] Adverse Reaction (Mild, Verified 02/29/24 14:03) RAISES BLOOD SUGAR topiramate [From TOPAMAX] Adverse Reaction (Unknown, Verified 02/29/24 14:03) AGITATION From PLAVIX Allergy (Unknown, Uncoded 12/25/23 12:55) PT UNSURE OF REACTION Medical tape Allergy (Unknown, Uncoded 12/25/23 12:55) Rash HPI Comments Details: I had the privilege of seeing Alicia in follow for CKD. She is known to have DM for a long time and is under good control now. She also has hypertension. She does not take NSAID's regularly. She denies any nausea, vomiting, diarrhea, SOB, edema, PND, orthopnea, hematuria, hearing deficits. She claims to be compliant with medications. She is not on SGLT2i. She has no sinusitis, epistaxis, photosensitivity, bone pain, sore throat , hemoptysis, skin lesions or recent antibiotic intake. She denied any active complaints at the time of this office visit [facility] Medical History Chronic kidney disease, stage 4 (severe) Type 2 diabetes mellitus Obesity Skin abrasion HARRIET (renal artery stenosis) Left bundle branch block Nonischemic cardiomyopathy Urinary incontinence GERD (gastroesophageal reflux disease) COVID-19 Pneumonia due to COVID-19 virus Vertigo Obesity (BMI 30-39.9) Depression Anxiety Stasis edema of both lower extremities Cardiomyopathy Pure hypercholesterolemia Hyperkalemia Renal artery stenosis Benign essential hypertension Conjunctival hemorrhage of right eye Surgical History Hx of colonoscopy Hx of myomectomy History of cataract surgery History of lumpectomy of left breast History of cholecystectomy Family History Father CVD (cardiovascular disease) Myocardial infarction Mother Myocardial infarction CVD (cardiovascular disease) Brother Myocardial infarction Family/Other FH: prostate cancer Social History Household Members: None Housing: Apartment Do you presently have visiting nurse or other home services: No Alcohol intake: never Patient Tobacco Use Status: Former Tobacco user Tobacco use type: Cigarette e-Cigarette/Vaping Use: Never Used Second Hand Smoke Exposure: No Advance Directives Date on File: 08/06/21 service: No Current occupational status: disabled Cognitive needs: No Hearing needs: No Vision needs: Yes Physical Exam Vital Signs: Last Vital Signs Pulse 74 02/29/24 14:00 Pulse Ox 99 02/29/24 14:00 Oxygen Delivery Method Room Air 02/29/24 14:00 BMI result Body Mass Index 28.7 Const General: comfortable and no acute distress Orientation/consciousness: patient oriented x3 HEENT Head: Yes normocephalic Mouth: Normal oral and palatal mucosa present Eyes EOM: EOMs intact bilaterally Neck Neck: Yes supple Resp Auscultation: clear to auscultation bilaterally Cardio Jugular venous distension: no JVD Rate: regular rate GI Palpation (GI): Soft to palpation Auscultation: normal bowel sounds General: Yes no CVA tenderness Back/Spine/Pelvis Back: no CVA tenderness Skin General skin exam: no rashes or lesions noted Neuro General: patient oriented x3 and moves all extremities Extrem General: Yes no pedal edema Results Reviewed Nephrology Results: Hgb 10.8 g/dl (12.0-16.0) L 02/26/24 WBC 5.8 X10*3/uL (4.8-10.8) 02/26/24 Plt Count 256 X10*3/uL (160-400) 02/26/24 Sodium 136 mmol/L (135-145) 02/26/24 Potassium 4.2 mmol/L (3.3-5.1) 02/26/24 Chloride 105 mmol/L (96-108) 02/26/24 Carbon Dioxide 20 mmol/L (22-29) L 02/26/24 BUN 32 mg/dL (9-16) H 02/26/24 Creatinine 2.72 mg/dL (0.5-1.4) H 02/26/24 Calcium 10.2 mg/dL (8.4-10.2) 02/26/24 Phosphorus 2.9 mg/dL (2.7-4.5) 02/26/24 PTH Intact 112.5 pg/mL (8.7-77.1) H 02/26/24 Urine Protein 30 (1+) mg/dL (Neg-Trace) H 12/12/23 Urine Creatinine 58.20 mg/dL 10/30/23 Assessment & Plan Assessment & Plan (1) HARRIET (renal artery stenosis): Code(s): I70.1 - Atherosclerosis of renal artery Category: Medical (2) Hypertension: Code(s): I10 - Essential (primary) hypertension Category: Medical Qualifiers: Hypertension type: renovascular hypertension Qualified Code(s): I15.0 - Renovascular hypertension (3) Chronic kidney disease, stage 4 (severe): Code(s): N18.4 - Chronic kidney disease, stage 4 (severe) Category: Medical Plan BP at goal. On statins Will need a F/U Doppler renal arteries Maintain blood sugar at goal Strong candidate for Jardiance/Farxiga Follow up labs ordered Could D/C metformin when initiating SGLT2 i All questions answered; F/U given Orders: Orders Blood Urea Nitrogen Today I15.0 - Renovascular hypertension, I70.1 - Atherosclerosis of renal artery, N18.4 - Chronic kidney disease, stage 4 (severe) Creatinine Today I15.0 - Renovascular hypertension, I70.1 - Atherosclerosis of renal artery, N18.4 - Chronic kidney disease, stage 4 (severe) Electrolytes Today I15.0 - Renovascular hypertension, I70.1 - Atherosclerosis of renal artery, N18.4 - Chronic kidney disease, stage 4 (severe) Coding Level of Care Code Est Pt Level 4 (62033) Diagnoses HARRIET (renal artery stenosis) I70.1 Renovascular hypertension I15.0 Hypertension type: renovascular hypertension Chronic kidney disease, stage 4 (severe) N18.4
== END 2024-02-29 14:35 | disposition home or self-care (01) ==
PROVIDERS: PCP Internal Medicine; Visit Provider Internal Medicine Nephrology
DX: I70.1 Atherosclerosis of renal artery (principal); I15.0 Renovascular hypertension; N18.4 Chronic kidney disease, stage 4 (severe)
CPT/HCPCS: 99214

== ENCOUNTER → 2024-02-29 13:56 | Outpatient (BNVA) | payer OTHER, SELFPAY | PROVIDERS: PCP Internal Medicine; Visit Provider Internal Medicine Nephrology | DX: I70.1 Atherosclerosis of renal artery (principal); I15.0 Renovascular hypertension; N18.4 Chronic kidney disease, stage 4 (severe) | CPT/HCPCS: 99212 ==

== ENCOUNTER 2024-03-21 10:07 | Outpatient (REF) | payer OTHER, SELFPAY ==
--- NOTE | ~2024-03-21 | MM_ITS ---
EXAMINATION: MM SCREENING DIGITAL BREAST TOMOSYNTHESIS, BILATERAL CLINICAL INFORMATION: Screening. Asymptomatic. Patient has a history of remote right breast surgery. She also reports left breast surgery. COMPARISON: Mammography: This study is compared with prior breast imaging dating back to 2013. TECHNIQUE: Digital breast tomosynthesis is performed in both the craniocaudal and mediolateral oblique views along with computer-aided detection (CAD). Synthesized 2D images are generated from the tomosynthesis. FINDINGS: There are scattered areas of fibroglandular density (ACR BI-RADS breast composition Category b). There are no significant masses, abnormal calcifications, or other abnormalities. There are postsurgical images in the superior aspect of the left breast. In the long interval since the prior mammogram, the patient has developed numerous benign, coarse secretory calcifications. MM/MM tomosynthesis screening BI IMPRESSION: No mammographic evidence of malignancy. ASSESSMENT: BI-RADS BI-RADS 2 - Benign Findings RECOMMENDATION: Routine annual mammography screening. 1 year F/U This examination should not preclude the clinical evaluation of a suspicious palpable abnormality. This patient's information was entered into a reminder system with a target due date for their next mammogram.
== END 2024-03-21 10:08 | disposition home or self-care (01) ==
LOC: HO.MAMMO 10:07
PROVIDERS: PCP Internal Medicine; Visit Provider Internal Medicine
DX: Z12.31 Encounter for screening mammogram for malignant neoplasm of breast (principal)
CPT/HCPCS: 77063; 77067

== ENCOUNTER → 2024-03-21 10:15 | Outpatient (BNV) | payer OTHER, SELFPAY | PROVIDERS: PCP Internal Medicine; Visit Provider Radiology Diagnostic Radiology | DX: Z12.31 Encounter for screening mammogram for malignant neoplasm of breast (principal) | CPT/HCPCS: 77063; 77067 ==

== ENCOUNTER 2024-03-25 09:29 | Outpatient (REF) | payer OTHER, SELFPAY ==
[2024-03-25 09:47] LABS: MANUAL DIFF FLAG NO
[2024-03-25 10:53] LABS: Basophils Percent Auto 0.6 % (0-2); Eosinophils Absolute Auto 0.1 X10*3/uL (0.0-0.4); Hematocrit 34.5 % (37.0-47.0); Imm Gran Abs Auto 0.01 X10*3/uL (0.00-0.03); Imm Gran Pct Auto 0.2 % (0.0-0.4); Lymphocytes Percent Auto 19.8 % (20-40); Mean Corpuscular HGB Conc 31.9 g/dl (31.0-35.0); Mean Corpuscular Hemoglobin 27.9 pg (27.0-33.0); Mean Corpuscular Volume 87.6 fL (80.0-98.0); Mean Platelet Volume 12.3 fL (9.4-12.3); Monocytes Absolute Auto 0.6 X10*3/uL (0.1-1.2); Monocytes Percent Auto 12.2 % (2-11); Neutrophils Absolute Auto 3.5 x10*3/uL (2.0-8.3); Neutrophils Percent Auto 66.2 % (45-73); Platelet Count 243 X10*3/uL (160-400); Red Blood Count 3.94 X10*6/uL (4.20-5.50); Red Cell Distribution Width 17.3 % (11.0-16.0); White Blood Count 5.3 X10*3/uL (4.8-10.8)
[2024-03-25 11:10] LABS: Estimated Average Glucose 183 mg/dL
[2024-03-25 11:50] LABS: Alanine Aminotransferase 16 U/L (0-31); Albumin Level 4.5 g/dL (3.5-5.0); Alkaline Phosphatase 94 U/L (39-117); Anion Gap 14 (12-20); Aspartate Amino Transferase 27 U/L (5-31); Bilirubin Total 1.2 mg/dL (0.0-1.0); Blood Urea Nitrogen 33 mg/dL (9-16); Calcium 10.3 mg/dL (8.4-10.2); Carbon Dioxide 23 mmol/L (22-29); Chloride 105 mmol/L (96-108); Cholesterol 139 mg/dL (<200); Estimated Glomerular Filt Rate 16; Glucose Fasting 129 mg/dL (60-99); HDL Cholesterol 53 mg/dL (>40); Iron 54 mcg/dL (30-160); LDL Cholesterol Calculated 72 mg/dL (<100); Percent Iron Saturation 14 % (15-50); Potassium 4.4 mmol/L (3.3-5.1); Sodium 138 mmol/L (135-145); Total Iron Binding Capacity 397 mcg/dL (228-428); Total Protein 8.1 g/dL (6.5-8.0); Triglycerides 70 mg/dL (<150); Unsaturated Iron Binding 343 ug/dL
[2024-03-25 11:58] LABS: Folate 13.4 ng/mL (> or = 4.0); Vitamin B12 704 pg/mL (200-900)
[2024-03-25 12:10] LABS: TSH reflex Free T4 2.45 uIU/mL (0.32-4.0); Vitamin D 25-OH Total 32.4 ng/mL (>30)
[2024-03-25 12:42] LABS: Appearance Urine Clear; Color Urine Yellow; Glucose Urine UA Negative (Negative); Leukocyte Esterase Urine Trace (Negative); Nitrite Urine Negative (Negative); PH 6.5 (5.0-9.0); Specific Gravity - Urine <= 1.005 (1.005-1.025); UMIC TRIGGER UACC YES; Urine Blood Small (1+) (Negative); Urine Ketones Negative (Negative); Urine Protein Trace mg/dL (Neg-Trace)
[2024-03-25 12:58] LABS: Bacteria Urine None Seen (None Seen); Hyaline Casts Urine 0-2 /LPF (0-2); RBC Urine 0-2 /HPF (0-2); Squamous Epithelial Cell Urine 0-2 /HPF (0-2); WBC Urine 0-5 /HPF (0-5)
[2024-03-25 13:55] LABS: Creatinine Urine 28.97 mg/dL; Microalbum/Creatinine Ratio Ur 82.8 ug/mg cr (<30)
== END 2024-03-25 09:30 | disposition home or self-care (01) ==
LOC: HO.LAB 09:29
PROVIDERS: PCP Internal Medicine; Visit Provider Internal Medicine
DX: E11.9 Type 2 diabetes mellitus without complications (principal); R30.0 Dysuria; D64.9 Anemia, unspecified; E78.00 Pure hypercholesterolemia, unspecified; E53.8 Deficiency of other specified B group vitamins; E55.9 Vitamin D deficiency, unspecified
CPT/HCPCS: 36415; 80053; 80061; 81001; 82043; 82306; 82570; 82607; 82746; 83036; 83540; 84443; 85025

== ENCOUNTER 2024-03-31 12:55 | Outpatient (AMB) | payer OTHER, SELFPAY ==
--- NOTE | 2024-03-31 13:01 | MHC.PC.OV ---
Vital Signs 03/31/24 13:03 Height 5 ft Weight 145 lb 6 oz BMI 28.4 BP 128/60 Blood Pressure Location Lt brachial Position Sitting Pulse 69 Pulse Source Pulse Oximeter Pulse Oximetry (%) 98 Oxygen Delivery Method Room Air Intake Visit Reasons: 3 Month F/U Intake Note: Patient is here to follow up on CKD, DM, HTN, HARRIET. Cutter Plastics Rolls Required: No Pouncing Machine Operator: Not Required per policy Accompanied by: Self / Same As Patient Allergies aspirin [Aspirin] Allergy (Severe, Verified 03/31/24 13:48) MOUTH SWELLING hydrochlorothiazide [Hydrochlorothiazide] Allergy (Intermediate, Verified 03/31/24 13:48) DROP IN BLOOD PRESSURE Penicillins [PENICILLINS] Allergy (Intermediate, Verified 03/31/24 13:48) ITCHING caffeine [Caffeine] Allergy (Mild, Verified 03/31/24 13:48) NERVOUSNESS lisinopril [Lisinopril] Allergy (Mild, Verified 03/31/24 13:48) CHANGES IN BLOOD PRESSURE ranitidine [RANITIDINE] Allergy (Mild, Verified 03/31/24 13:48) HEADACHE amlodipine [AMLODIPINE] Allergy (Unknown, Verified 03/31/24 13:48) UNKNOWN amoxicillin Allergy (Unknown, Verified 03/31/24 13:48) itching, severe with rash diclofenac Allergy (Unknown, Verified 03/31/24 13:48) Unknown escitalopram Allergy (Unknown, Verified 03/31/24 13:48) abdominal discomfort, drowsiness esomeprazole [Nexium] Allergy (Unknown, Verified 03/31/24 13:48) Unknown isosorbide [ISOSORBIDE] Allergy (Unknown, Verified 03/31/24 13:48) UNKNOWN lidocaine [Lidoderm] Allergy (Unknown, Verified 03/31/24 13:48) weakness mirtazapine Allergy (Unknown, Verified 03/31/24 13:48) Unknown nystatin Allergy (Unknown, Verified 03/31/24 13:48) rash sertraline [SERTRALINE] Allergy (Unknown, Verified 03/31/24 13:48) UNKNOWN dexlansoprazole [From DEXILANT] Adverse Reaction (Severe, Verified 03/31/24 13:48) AGITATION hydrocortisone [From Cortizone-10] Adverse Reaction (Mild, Verified 03/31/24 13:48) RAISES BLOOD SUGAR topiramate [From TOPAMAX] Adverse Reaction (Unknown, Verified 03/31/24 13:48) AGITATION From PLAVIX Allergy (Unknown, Uncoded 03/31/24 13:48) PT UNSURE OF REACTION Medical tape Allergy (Unknown, Uncoded 03/31/24 13:48) Rash Medication List - Last Reconciled 03/31/24 by Boaz Astorga MD acetaminophen (Tylenol Extra Strength) 500 mg PO .TWICE A DAY PRN alprazolam 0.5 mg PO BID PRN blood sugar diagnostic ([employer] Ultra Test strips) USE DIRECTED TO TEST BLOOD SUGAR FOUR TIMES DAILY buspirone 7.5 mg PO DAILY carvedilol 6.25 mg PO BID 90 days ciclopirox 0.77% 1 applic topical BID clotrimazole-betamethasone 1-0.05 % 1 appl topical BID PRN compr.stocking,knee,long,large As directed furosemide 10 mg PO QAM lancets ([employer] Delica Plus Lancet) USE FOUR TIMES DAILY multivit with min-folic acid 200 mcg (Adult Multivitamin Gummies) 1 tab PO DAILY nystatin 1 appl topical TID PRN 14 days pantoprazole 40 mg PO DAILY propylene glycol 0.6% (Systane Balance) 1 drp ophthalmic (eye) BID PRN rosuvastatin 40 mg PO DAILY 90 days semaglutide (Ozempic) 1 mg (0.75 mL) subcut QWEEK 4 weeks sennosides 17.2 mg (2 x 8.6 mg) PO DAILY spironolactone (Aldactone) 25 mg PO BEDTIME 90 days Tobacco use date assessed: 03/31/24 Fall risk assessment: No Falls in past year Last assessed Fall Risk: 03/31/24 Dental Screening Dental Screen Date: 12/24/23 HPI 3 Month F/U HPI Details Patient comes in today for her follow up visit States that she feels okay She denies any headaches or dizziness Denies any chest pains, no increased SOB No nausea/vomiting, no abdominal pain No change in bowel habits noted Had her follow up labs done last week - to discuss her results [facility] Medical History Chronic kidney disease, stage 4 (severe) Type 2 diabetes mellitus Obesity Skin abrasion HARRIET (renal artery stenosis) Left bundle branch block Nonischemic cardiomyopathy Urinary incontinence GERD (gastroesophageal reflux disease) COVID-19 Pneumonia due to COVID-19 virus Vertigo Obesity (BMI 30-39.9) Depression Anxiety Stasis edema of both lower extremities Cardiomyopathy Pure hypercholesterolemia Hyperkalemia Renal artery stenosis Benign essential hypertension Conjunctival hemorrhage of right eye Surgical History Hx of colonoscopy Hx of myomectomy History of cataract surgery History of lumpectomy of left breast History of cholecystectomy Family History Father CVD (cardiovascular disease) Myocardial infarction Mother Myocardial infarction CVD (cardiovascular disease) Brother Myocardial infarction Family/Other FH: prostate cancer Social History Household Members: None Housing: Apartment Do you presently have visiting nurse or other home services: No Alcohol intake: never Patient Tobacco Use Status: Former Tobacco user Tobacco use type: Cigarette e-Cigarette/Vaping Use: Never Used Second Hand Smoke Exposure: No Advance Directives Date on File: 08/06/21 service: No Current occupational status: disabled Cognitive needs: No Hearing needs: No Vision needs: Yes Questionnaire Thrive Questionnaire Date Thrive assessed: 12/24/23 VIKRAM-7 AMB Questionnaire VIKRAM-7 Date VIKRAM - 7 assessed: 12/24/23 Source: Developed by Drs. Kayden Gonzalez, Alka Silver, Harjit Rush and colleagues, with an educational vlad from [employer]. Review of Systems Const Denies chills, Denies fatigue, Denies fever(s) and Denies headache(s) ENT Denies dysphagia, Denies dizziness, Denies otalgia, Denies headache(s), Denies neck pain, Denies odynophagia and Denies sore throat Card Denies chest pain, Denies palpitations and Denies dyspnea Resp Denies chest congestion, Denies cough, Denies dyspnea and Denies wheezing GI Denies abdominal pain, Denies constipation, Denies dysphagia, Denies heartburn, Denies diarrhea, Denies nausea, Denies odynophagia and Denies vomiting Denies difficulty voiding, Denies nocturia, Denies dysuria, Reports urinary incontinence and Denies urinary urgency Musc Denies back pain and Denies neck pain Skin/Breast Denies rash Neuro Denies dizziness and Denies headache(s) Psych Reports anxiety Endo Denies fatigue and Denies palpitations Aller/Immun Denies wheezing Physical exam (Primary Care) Vital Signs: Last Vital Signs Pulse 69 03/31/24 13:03 BP 128/60 03/31/24 13:03 Pulse Ox 98 03/31/24 13:03 Oxygen Delivery Method Room Air 03/31/24 13:03 BMI result Body Mass Index 28.4 Tobacco/Smoking Status: Tobacco use Status Tobacco use date assessed 03/31/24 03/31/24 13:05 Patient Tobacco Use Status Former Tobacco user 03/31/24 13:05 Tobacco use type Cigarette 03/31/24 13:05 e-Cigarette/Vaping Use Never Used 03/31/24 13:05 Thrive Assessment: Date of Thrive Assessment Date Thrive assessed 12/24/23 03/31/24 13:05 Const General: no acute distress and alert HENMT Ears: TM's normal bilaterally and EAC's normal Throat: Yes posterior oropharynx normal and Yes tonsils normal (no TP congestion noted) Neck Neck: Yes no lymphadenopathy and Yes supple Thyroid: Thyroid normal Resp Auscultation: clear to auscultation bilaterally, no rales and no wheezes Cardio Rate: regular rate Rhythm: regular rhythm Heart sounds: no murmurs GI Palpation (GI): Soft to palpation and nontender Auscultation: normal bowel sounds General: Yes no CVA tenderness Back/Spine/Pelvis Back: no CVA tenderness Thoracic/Lumbar Spine: No lumbar spinal tenderness Skin Rashes: no rashes Extrem General: Yes no clubbing, cyanosis or edema Results Reviewed Results Reviewed: Laboratory Tests 03/25/24 03/25/24 04:35 09:45 WBC 5.3 Hgb 11.0 L Hct 34.5 L Plt Count 243 Sodium 138 Potassium 4.4 Creatinine 2.81 H Estimated GFR 16 Fasting Glucose 129 H Hemoglobin A1c % 8.0 H Calcium 10.3 H AST 27 ALT 16 Triglycerides 70 Cholesterol 139 LDL Cholesterol, Calc 72 HDL Cholesterol 53 Vitamin B12 704 25-OH Vitamin D Total 32.4 TSH 2.45 Ur Specific [place] <= 1.005 Urine Protein Trace Urine Glucose (UA) Negative Urine Blood Small (1+) H Urine Nitrite Negative Ur Leukocyte Esterase Trace H Microalb/Creat Ratio 82.8 H Assessment and Plan Assessment & Plan (1) Benign essential hypertension: Code(s): I10 - Essential (primary) hypertension Plan: Reinforced low sodium diet - goal is systolic BP of at least 130 to 140 mm or less Continue Carvedilol 6.25 mg BID and Spironolactone 25 mg Q HS; she is also on Furosemide 10 mg QD Her Losartan was HELD previously and she is advised NOT to start back on this due to her advanced CKD Follow up with cardiology as scheduled (2) Cardiomyopathy: Code(s): I42.9 - Cardiomyopathy, unspecified Qualifiers: Cardiomyopathy type: unspecified Qualified Code(s): I42.9 - Cardiomyopathy, unspecified Plan: Continue Carvedilol 6.25 mg BID Patient had a stress test and nuclear MIBI done at [facility] a couple of years ago - both tests came back normal BNP also came back normal when previously checked Follow up with cardiology as scheduled (3) Renal artery stenosis: Code(s): I70.1 - Atherosclerosis of renal artery Plan: She has left HARRIET (seen on renal artery doppler) and will be considered for renal angioplasty if necessary Her BP appears to have improved a lot with the addition of Spironolactone Will continue to observe and monitor her blood pressure for now Follow up with nephrology (Dr. Madrigal) as scheduled (4) Chronic kidney disease, stage 4 (severe): Code(s): N18.4 - Chronic kidney disease, stage 4 (severe) Plan: Patient's serum creatinine and GFR/renal function appear stable on her recent labs - will continue to monitor her GFR and serum creatinine closely Follow up with nephrology (Dr. Madrigal) as scheduled - nephrology recommended adding an SGLT-2 inhibitor and patient may be able to come off Metformin - Metformin has since been discontinued Patient is now seeing [facility] for management of her diabetes - to follow up with endocrinology as scheduled (5) Type 2 diabetes mellitus: Code(s): E11.9 - Type 2 diabetes mellitus without complications Qualifiers: Chronic kidney disease stage: stage 4 (severe) 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 complication detail: with chronic kidney disease 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 complication status: with kidney complications 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 computer terminal operator insulin use: without computer terminal operator use Qualified Code(s): E11.22 - Type 2 diabetes mellitus with diabetic chronic kidney disease; N18.4 - Chronic kidney disease, stage 4 (severe) Plan: HgbA1c was at 8.0% on her labs done last week; was at 8.2% when last checked a few months ago in October 2023 - goal is <7.0% Reinforced diabetic diet Her Metformin ER 500 mg QD has been discontinued due to her advanced CKD She was also switched over to Ozempic from her Trulicity (1.5 mg SQ once a week) as she has not been able to get her Trulicity Rx filled at her pharmacy for a few months due to unavailability She was initially on Ozempic 1 mg once a week but she experienced increased dizziness and her dose was eventually lowered to 0.5 mg once a week Her Glimepiride 1 mg Q AM and Januvia were also previously stopped due to hypoglycemia Nephrology recommended adding an SGLT-2 inhibitor and will likely start patient on this at her next follow up visit Follow up with [facility] Endocrinology as scheduled (6) Pure hypercholesterolemia: Code(s): E78.00 - Pure hypercholesterolemia, unspecified Plan: Results of her labs done last week reviewed and discussed with patient Reinforced low cholesterol diet Continue Atorvastatin 80 mg QD Will recheck her labs and fasting lipids in 3 months for follow up (7) Elevated TSH: Code(s): R79.89 - Other specified abnormal findings of blood chemistry Plan: Her TSH is now normal on her recent labs Her free T4 and T3 levels were normal and TPO Ab level was high when previously checked, suggesting possible Pb's Patient currently appears clinically euthyroid Will continue to monitor her TFTs regularly (8) Anxiety: Code(s): F41.9 - Anxiety disorder, unspecified Plan: Continue Buspirone 7.5 mg QD and Alprazolam 0.5 mg BID PRN Follow up with psychiatry as scheduled (9) Depression: Code(s): F32.9 - Major depressive disorder, single episode, unspecified Qualifiers: Depression Type: unspecified Qualified Code(s): F32.9 - Major depressive disorder, single episode, unspecified Plan: Follow up with psychiatry as scheduled - patient goes to [facility] (10) Obesity (BMI 30-39.9): Code(s): E66.9 - Obesity, unspecified Plan: Reinforced diet; exercise and weight loss are unrealistic given patient's multiple comorbidities and limited activity tolerance as well as her gait instability - fell a few months ago and reportedly sustained a faint, non-displaced fracture of her left 7th rib Plan Follow up in 3 months Orders: Orders Lipid Panel 3 Months E78.00 - Pure hypercholesterolemia, unspecified Hemoglobin A1c 3 Months E11.9 - Type 2 diabetes mellitus without complications Complete Blood Count Auto Diff 3 Months D64.9 - Anemia, unspecified Comprehensive [place]. Panel Fast 3 Months E78.00 - Pure hypercholesterolemia, unspecified Coding Level of Care Code Est Pt Level 4 (16213) Complex EM visit Add On G2211 Diagnoses Benign essential hypertension I10 Cardiomyopathy, unspecified type I42.9 Cardiomyopathy type: unspecified Renal artery stenosis I70.1 Chronic kidney disease, stage 4 (severe) N18.4 Type 2 diabetes mellitus with stage 4 chronic kidney disease, without long-term current use of insulin E11.22; N18.4 Chronic kidney disease stage: stage 4 (severe) 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 complication detail: with chronic kidney disease 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 complication status: with kidney complications 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 computer terminal operator insulin use: without computer terminal operator use Pure hypercholesterolemia E78.00 Elevated TSH R79.89 Anxiety F41.9 Depression, unspecified depression type F32.9 Depression Type: unspecified Obesity (BMI 30-39.9) E66.9
[2024-03-31 13:03] VITALS: BP 128/60; PULSE 69; O2SAT 98; BMI 28.4
== END 2024-03-31 14:14 | disposition home or self-care (01) ==
PROVIDERS: PCP Internal Medicine; Visit Provider Internal Medicine
DX: I12.9 Hypertensive chronic kidney disease with stage 1 through stage 4 chronic kidney disease, or unspecified chronic kidney disease (principal); N18.4 Chronic kidney disease, stage 4 (severe); I42.9 Cardiomyopathy, unspecified; I70.1 Atherosclerosis of renal artery; E78.00 Pure hypercholesterolemia, unspecified; R79.89 Other specified abnormal findings of blood chemistry; F41.9 Anxiety disorder, unspecified
CPT/HCPCS: 99214; G2211

== ENCOUNTER 2024-06-04 12:09 | Outpatient (REF) | payer OTHER, SELFPAY ==
[2024-06-04 13:18] LABS: Anion Gap 13 (12-20); Blood Urea Nitrogen 33 mg/dL (9-16); Carbon Dioxide 23 mmol/L (22-29); Chloride 102 mmol/L (96-108); Estimated Glomerular Filt Rate 16; Potassium 4.2 mmol/L (3.3-5.1); Sodium 134 mmol/L (135-145)
== END 2024-06-04 12:10 | disposition home or self-care (01) ==
LOC: HO.LAB 12:09
PROVIDERS: PCP Internal Medicine; Visit Provider Internal Medicine Nephrology
DX: I15.0 Renovascular hypertension (principal); I70.1 Atherosclerosis of renal artery; N18.4 Chronic kidney disease, stage 4 (severe)
CPT/HCPCS: 36415; 80051; 82565; 84520

== ENCOUNTER 2024-06-06 13:02 | Outpatient (AMB) | payer OTHER, SELFPAY ==
--- NOTE | 2024-06-06 13:35 | HO.NEPHOV ---
Vital Signs 06/06/24 13:36 Height 5 ft Weight 141 lb 8 oz BMI 27.6 BP 132/60 Blood Pressure Location Rt brachial Position Sitting Pulse 74 Pulse Source Pulse Oximeter Pulse Oximetry (%) 98 Oxygen Delivery Method Room Air Intake Visit Reasons: CKD/ 3 MO FU/ Conf Data Analyst Report Writer Required: No Accompanied by: Self / Same As Patient Allergies aspirin [Aspirin] Allergy (Severe, Verified 06/06/24 13:39) MOUTH SWELLING hydrochlorothiazide [Hydrochlorothiazide] Allergy (Intermediate, Verified 06/06/24 13:39) DROP IN BLOOD PRESSURE Penicillins [PENICILLINS] Allergy (Intermediate, Verified 06/06/24 13:39) ITCHING caffeine [Caffeine] Allergy (Mild, Verified 06/06/24 13:39) NERVOUSNESS lisinopril [Lisinopril] Allergy (Mild, Verified 06/06/24 13:39) CHANGES IN BLOOD PRESSURE ranitidine [RANITIDINE] Allergy (Mild, Verified 06/06/24 13:39) HEADACHE amlodipine [AMLODIPINE] Allergy (Unknown, Verified 06/06/24 13:39) UNKNOWN amoxicillin Allergy (Unknown, Verified 06/06/24 13:39) itching, severe with rash diclofenac Allergy (Unknown, Verified 06/06/24 13:39) Unknown escitalopram Allergy (Unknown, Verified 06/06/24 13:39) abdominal discomfort, drowsiness esomeprazole [Nexium] Allergy (Unknown, Verified 06/06/24 13:39) Unknown isosorbide [ISOSORBIDE] Allergy (Unknown, Verified 06/06/24 13:39) UNKNOWN lidocaine [Lidoderm] Allergy (Unknown, Verified 06/06/24 13:39) weakness mirtazapine Allergy (Unknown, Verified 06/06/24 13:39) Unknown nystatin Allergy (Unknown, Verified 06/06/24 13:39) rash sertraline [SERTRALINE] Allergy (Unknown, Verified 06/06/24 13:39) UNKNOWN dexlansoprazole [From DEXILANT] Adverse Reaction (Severe, Verified 06/06/24 13:39) AGITATION hydrocortisone [From Cortizone-10] Adverse Reaction (Mild, Verified 06/06/24 13:39) RAISES BLOOD SUGAR topiramate [From TOPAMAX] Adverse Reaction (Unknown, Verified 06/06/24 13:39) AGITATION From PLAVIX Allergy (Unknown, Uncoded 06/10/24 13:48) PT UNSURE OF REACTION Medical tape Allergy (Unknown, Uncoded 03/31/24 13:48) Rash HPI Comments Details: I had the privilege of seeing Alicia in follow for CKD. She is known to have DM for a long time and is under better control now. She also has hypertension. She does not take NSAID's regularly. She denies any nausea, vomiting, diarrhea, SOB, edema, PND, orthopnea, hematuria, hearing deficits. She claims to be compliant with medications. She is not on SGLT2i. She has no sinusitis, epistaxis, photosensitivity, bone pain, sore throat , hemoptysis, skin lesions or recent antibiotic intake. She denied any active complaints at the time of this office visit [facility] Medical History Chronic kidney disease, stage 4 (severe) Type 2 diabetes mellitus Obesity Skin abrasion HARRIET (renal artery stenosis) Left bundle branch block Nonischemic cardiomyopathy Urinary incontinence GERD (gastroesophageal reflux disease) COVID-19 Pneumonia due to COVID-19 virus Vertigo Obesity (BMI 30-39.9) Depression Anxiety Stasis edema of both lower extremities Cardiomyopathy Pure hypercholesterolemia Hyperkalemia Renal artery stenosis Benign essential hypertension Conjunctival hemorrhage of right eye Surgical History Hx of colonoscopy Hx of myomectomy History of cataract surgery History of lumpectomy of left breast History of cholecystectomy Family History Father CVD (cardiovascular disease) Myocardial infarction Mother Myocardial infarction CVD (cardiovascular disease) Brother Myocardial infarction Family/Other FH: prostate cancer Social History Household Members: None Housing: Apartment Do you presently have visiting nurse or other home services: No Alcohol intake: never Patient Tobacco Use Status: Former Tobacco user Tobacco use type: Cigarette e-Cigarette/Vaping Use: Never Used Second Hand Smoke Exposure: No Advance Directives Date on File: 08/06/21 service: No Current occupational status: disabled Cognitive needs: No Hearing needs: No Vision needs: Yes Review of Systems Const All systems reviewed & are unremarkable except as noted in HPI and below Physical Exam Vital Signs: Last Vital Signs Pulse 74 06/06/24 13:36 BP 132/60 06/06/24 13:36 Pulse Ox 98 06/06/24 13:36 Oxygen Delivery Method Room Air 06/06/24 13:36 BMI result Body Mass Index 27.6 Const General: comfortable and no acute distress Orientation/consciousness: patient oriented x3 HEENT Head: Yes normocephalic Mouth: Normal oral and palatal mucosa present Eyes EOM: EOMs intact bilaterally Neck Neck: Yes supple Resp Auscultation: clear to auscultation bilaterally Cardio Jugular venous distension: no JVD Rate: regular rate GI Palpation (GI): Soft to palpation Auscultation: normal bowel sounds General: Yes no CVA tenderness Back/Spine/Pelvis Back: no CVA tenderness Skin General skin exam: no rashes or lesions noted Neuro General: patient oriented x3 and moves all extremities Extrem General: Yes no pedal edema Results Reviewed Nephrology Results: Hgb 11.0 g/dl (12.0-16.0) L 03/25/24 WBC 5.3 X10*3/uL (4.8-10.8) 03/25/24 Plt Count 243 X10*3/uL (160-400) 03/25/24 Sodium 134 mmol/L (135-145) L 06/04/24 Potassium 4.2 mmol/L (3.3-5.1) 06/04/24 Chloride 102 mmol/L (96-108) 06/04/24 Carbon Dioxide 23 mmol/L (22-29) 06/04/24 BUN 33 mg/dL (9-16) H 06/04/24 Creatinine 2.90 mg/dL (0.5-1.4) H 06/04/24 Calcium 10.3 mg/dL (8.4-10.2) H 03/25/24 Phosphorus 2.9 mg/dL (2.7-4.5) 02/26/24 PTH Intact 112.5 pg/mL (8.7-77.1) H 02/26/24 Urine Protein Trace mg/dL (Neg-Trace) 03/25/24 Urine Creatinine 28.97 mg/dL 03/25/24 Assessment & Plan Assessment & Plan (1) HARRIET (renal artery stenosis): Code(s): I70.1 - Atherosclerosis of renal artery Category: Medical (2) Chronic kidney disease, stage 4 (severe): Code(s): N18.4 - Chronic kidney disease, stage 4 (severe) Category: Medical (3) Hypertension: Code(s): I10 - Essential (primary) hypertension Category: Medical Qualifiers: Hypertension type: renovascular hypertension Qualified Code(s): I15.0 - Renovascular hypertension Plan BP at goal. On statins Ordered Doppler renal arteries BP at goal at home Maintain blood sugar at goal 24 hour urine for cr cl ordered Strong candidate for Jardiance Follow up labs ordered F/U in one month Orders: Orders Blood Urea Nitrogen Today I15.0 - Renovascular hypertension, I70.1 - Atherosclerosis of renal artery, N18.4 - Chronic kidney disease, stage 4 (severe) Electrolytes Today I15.0 - Renovascular hypertension, I70.1 - Atherosclerosis of renal artery, N18.4 - Chronic kidney disease, stage 4 (severe) US renal doppler Today I70.1 - Atherosclerosis of renal artery Creatinine Today I15.0 - Renovascular hypertension, I70.1 - Atherosclerosis of renal artery, N18.4 - Chronic kidney disease, stage 4 (severe) Coding Level of Care Code Est Pt Level 4 (60713) Diagnoses HARRIET (renal artery stenosis) I70.1 Chronic kidney disease, stage 4 (severe) N18.4 Renovascular hypertension I15.0 Hypertension type: renovascular hypertension
[2024-06-06 13:36] VITALS: BP 132/60; PULSE 74; O2SAT 98; BMI 27.6
== END 2024-06-06 14:00 | disposition home or self-care (01) ==
PROVIDERS: PCP Internal Medicine; Visit Provider Internal Medicine Nephrology
DX: I70.1 Atherosclerosis of renal artery (principal); I12.9 Hypertensive chronic kidney disease with stage 1 through stage 4 chronic kidney disease, or unspecified chronic kidney disease; E11.22 Type 2 diabetes mellitus with diabetic chronic kidney disease; N18.4 Chronic kidney disease, stage 4 (severe)
CPT/HCPCS: 99214

== ENCOUNTER → 2024-06-06 13:02 | Outpatient (BNVA) | payer OTHER, SELFPAY | PROVIDERS: PCP Internal Medicine; Visit Provider Internal Medicine Nephrology | DX: I15.0 Renovascular hypertension (principal); I70.1 Atherosclerosis of renal artery; N18.4 Chronic kidney disease, stage 4 (severe) | CPT/HCPCS: 99212 ==

== ENCOUNTER 2024-06-09 11:48 | Outpatient (REF) | payer OTHER, SELFPAY ==
[2024-06-09 13:01] LABS: Anion Gap 13 (12-20); Blood Urea Nitrogen 37 mg/dL (9-16); Carbon Dioxide 25 mmol/L (22-29); Chloride 104 mmol/L (96-108); Estimated Glomerular Filt Rate 15; Potassium 4.4 mmol/L (3.3-5.1); Sodium 138 mmol/L (135-145)
[2024-06-09 13:10] LABS: Creatinine, mg/dL 41.53
[2024-06-09 13:13] LABS: Creatinine, 24Hr Urine 0.6 G/Day (1.0-2.0); Total Volume 24 Hour Urine 1450 mL
[2024-06-09 14:53] LABS: Creatinine (CrCl) 3.01 mg/dL (0.5-1.4); Creatinine Clearance 13.8 mL/min (85-125)
== END 2024-06-09 11:49 | disposition home or self-care (01) ==
LOC: HO.LAB 11:48
PROVIDERS: PCP Internal Medicine; Visit Provider Internal Medicine Nephrology
DX: I15.0 Renovascular hypertension (principal); I70.1 Atherosclerosis of renal artery; N18.4 Chronic kidney disease, stage 4 (severe)
CPT/HCPCS: 36415; 80051; 82565; 82575; 84520

== ENCOUNTER 2024-06-20 08:42 | Outpatient (REF) | payer OTHER, SELFPAY ==
--- NOTE | ~2024-06-20 | US_ITS ---
EXAMINATION: US RETROPERITONEAL COMPLETE (RENAL) EXAMINATION: ULTRASOUND OF KIDNEYS WITH RENAL ARTERY DOPPLER CLINICAL INFORMATION: Hypertension. COMPARISON: None. TECHNIQUE: Ultrasound of the kidneys was performed along with color flow Doppler imaging and velocity measurements in the proximal mid and distal renal arteries. Aortic velocities were measured and renal/aortic ratios were calculated. FINDINGS: The kidneys appeared normal with the right kidney measuring 8.8 cm and the left kidney measuring 9.4 cm. There is a 1.1cm right lower pole simple cyst which does not require follow up. No renal masses, renal stones or hydronephrosis is seen. Renal cortical thickness appears normal. Velocity measurements in the proximal mid and distal renal arteries are normal. Velocity in the aorta is normal and, therefore, the renal aortic ratios are normal. The bladder appeared unremarkable. There is an infrarenal abdominal aortic aneurysm measuring 2.7cm. The adjacent aorta measures 1.3cm. US/US renal doppler IMPRESSION: No evidence to suggest renal artery stenosis. Infrarenal abdominal aortic aneurysm measuring 2.7 cm. Based on published guidelines in J Am Abdoulaye Radiol 2013; 10(10):789-794 and J Vasc Surg. 2018; 67:2-77, the recommendation for an abdominal aorta with diameter 2.6-2.9 cm is follow-up every 5 years if the aorta that meets the criteria for AAA (>1.5 x proximal normal segment; no f/u if < 1.5 x proximal normal segment; no f/u for aorta < 2.6 cm). Electronically signed by: Ludmila Sparrow MD 06/20/2024 05:04 PM EDT
--- NOTE | ~2024-06-20 | US_ITS ---
EXAMINATION: US RETROPERITONEAL COMPLETE (RENAL) EXAMINATION: ULTRASOUND OF KIDNEYS WITH RENAL ARTERY DOPPLER CLINICAL INFORMATION: Hypertension. COMPARISON: None. TECHNIQUE: Ultrasound of the kidneys was performed along with color flow Doppler imaging and velocity measurements in the proximal mid and distal renal arteries. Aortic velocities were measured and renal/aortic ratios were calculated. FINDINGS: The kidneys appeared normal with the right kidney measuring 8.8 cm and the left kidney measuring 9.4 cm. There is a 1.1cm right lower pole simple cyst which does not require follow up. No renal masses, renal stones or hydronephrosis is seen. Renal cortical thickness appears normal. Velocity measurements in the proximal mid and distal renal arteries are normal. Velocity in the aorta is normal and, therefore, the renal aortic ratios are normal. The bladder appeared unremarkable. There is an infrarenal abdominal aortic aneurysm measuring 2.7cm. The adjacent aorta measures 1.3cm. US/US renal BI IMPRESSION: No evidence to suggest renal artery stenosis. Infrarenal abdominal aortic aneurysm measuring 2.7 cm. Based on published guidelines in J Am Abdoulaye Radiol 2013; 10(10):789-794 and J Vasc Surg. 2018; 67:2-77, the recommendation for an abdominal aorta with diameter 2.6-2.9 cm is follow-up every 5 years if the aorta that meets the criteria for AAA (>1.5 x proximal normal segment; no f/u if < 1.5 x proximal normal segment; no f/u for aorta < 2.6 cm). Electronically signed by: Ludmila Sparrow MD 06/20/2024 05:04 PM EDT
== END 2024-06-20 08:43 | disposition home or self-care (01) ==
LOC: HO.US 08:42
PROVIDERS: PCP Internal Medicine; Visit Provider Internal Medicine Nephrology
DX: I70.1 Atherosclerosis of renal artery (principal)
CPT/HCPCS: 76775; 93975

== ENCOUNTER 2024-07-04 13:10 | Outpatient (AMB) | payer OTHER, SELFPAY ==
--- NOTE | 2024-07-04 13:24 | HO.NEPHOV ---
Vital Signs 07/04/24 13:36 Height 5 ft Weight 141 lb BMI 27.5 BP 144/70 H Blood Pressure Location Rt brachial Position Sitting Pulse 72 Pulse Source Pulse Oximeter Pulse Oximetry (%) 99 Oxygen Delivery Method Room Air Intake Visit Reasons: CKD/ Conf Sound Engineer Audio Control Required: No Accompanied by: Self / Same As Patient Allergies aspirin [Aspirin] Allergy (Severe, Verified 07/04/24 13:39) MOUTH SWELLING hydrochlorothiazide [Hydrochlorothiazide] Allergy (Intermediate, Verified 07/04/24 13:39) DROP IN BLOOD PRESSURE Penicillins [PENICILLINS] Allergy (Intermediate, Verified 07/04/24 13:39) ITCHING caffeine [Caffeine] Allergy (Mild, Verified 07/04/24 13:39) NERVOUSNESS lisinopril [Lisinopril] Allergy (Mild, Verified 07/04/24 13:39) CHANGES IN BLOOD PRESSURE ranitidine [RANITIDINE] Allergy (Mild, Verified 07/04/24 13:39) HEADACHE amlodipine [AMLODIPINE] Allergy (Unknown, Verified 07/04/24 13:39) UNKNOWN amoxicillin Allergy (Unknown, Verified 07/04/24 13:39) itching, severe with rash diclofenac Allergy (Unknown, Verified 07/04/24 13:39) Unknown escitalopram Allergy (Unknown, Verified 07/04/24 13:39) abdominal discomfort, drowsiness esomeprazole [Nexium] Allergy (Unknown, Verified 07/04/24 13:39) Unknown isosorbide [ISOSORBIDE] Allergy (Unknown, Verified 07/04/24 13:39) UNKNOWN lidocaine [Lidoderm] Allergy (Unknown, Verified 07/04/24 13:39) weakness mirtazapine Allergy (Unknown, Verified 07/04/24 13:39) Unknown nystatin Allergy (Unknown, Verified 07/04/24 13:39) rash sertraline [SERTRALINE] Allergy (Unknown, Verified 07/04/24 13:39) UNKNOWN dexlansoprazole [From DEXILANT] Adverse Reaction (Severe, Verified 07/04/24 13:39) AGITATION hydrocortisone [From Cortizone-10] Adverse Reaction (Mild, Verified 07/04/24 13:39) RAISES BLOOD SUGAR topiramate [From TOPAMAX] Adverse Reaction (Unknown, Verified 07/04/24 13:39) AGITATION From PLAVIX Allergy (Unknown, Uncoded 03/31/24 13:48) PT UNSURE OF REACTION Medical tape Allergy (Unknown, Uncoded 03/31/24 13:48) Rash HPI Comments Details: I had the privilege of seeing Alicia in follow for CKD. She is known to have DM for a long time and is under better control now. She also has hypertension. She does not take NSAID's regularly. She denies any nausea, vomiting, diarrhea, SOB, edema, PND, orthopnea, hematuria, hearing deficits. She claims to be compliant with medications. She is not on SGLT2i. She has no sinusitis, epistaxis, photosensitivity, bone pain, sore throat , hemoptysis, skin lesions or recent antibiotic intake. Her renal functions have been getting worse. She denied any active complaints at the time of this office visit [facility] Medical History Chronic kidney disease, stage 4 (severe) Type 2 diabetes mellitus Obesity Skin abrasion HARRIET (renal artery stenosis) Left bundle branch block Nonischemic cardiomyopathy Urinary incontinence GERD (gastroesophageal reflux disease) COVID-19 Pneumonia due to COVID-19 virus Vertigo Obesity (BMI 30-39.9) Depression Anxiety Stasis edema of both lower extremities Cardiomyopathy Pure hypercholesterolemia Hyperkalemia Renal artery stenosis Benign essential hypertension Conjunctival hemorrhage of right eye Surgical History Hx of colonoscopy Hx of myomectomy History of cataract surgery History of lumpectomy of left breast History of cholecystectomy Family History Father CVD (cardiovascular disease) Myocardial infarction Mother Myocardial infarction CVD (cardiovascular disease) Brother Myocardial infarction Family/Other FH: prostate cancer Social History Household Members: None Housing: Apartment Do you presently have visiting nurse or other home services: No Alcohol intake: never Patient Tobacco Use Status: Former Tobacco user Tobacco use type: Cigarette e-Cigarette/Vaping Use: Never Used Second Hand Smoke Exposure: No Advance Directives Date on File: 08/06/21 service: No Current occupational status: disabled Cognitive needs: No Hearing needs: No Vision needs: Yes Review of Systems Const All systems reviewed & are unremarkable except as noted in HPI and below Physical Exam Vital Signs: Last Vital Signs Pulse 72 07/04/24 13:36 BP 144/70 H 07/04/24 13:36 Pulse Ox 99 07/04/24 13:36 Oxygen Delivery Method Room Air 07/04/24 13:36 BMI result Body Mass Index 27.5 Const General: comfortable and no acute distress Orientation/consciousness: patient oriented x3 HEENT Head: Yes normocephalic Mouth: Normal oral and palatal mucosa present Eyes EOM: EOMs intact bilaterally Neck Neck: Yes supple Resp Auscultation: clear to auscultation bilaterally Cardio Jugular venous distension: no JVD Rate: regular rate GI Palpation (GI): Soft to palpation Auscultation: normal bowel sounds General: Yes no CVA tenderness Back/Spine/Pelvis Back: no CVA tenderness Skin General skin exam: no rashes or lesions noted Neuro General: patient oriented x3 and moves all extremities Extrem General: Yes no pedal edema Results Reviewed Nephrology Results: Hgb 11.0 g/dl (12.0-16.0) L 03/25/24 WBC 5.3 X10*3/uL (4.8-10.8) 03/25/24 Plt Count 243 X10*3/uL (160-400) 03/25/24 Sodium 138 mmol/L (135-145) 06/09/24 Potassium 4.4 mmol/L (3.3-5.1) 06/09/24 Chloride 104 mmol/L (96-108) 06/09/24 Carbon Dioxide 25 mmol/L (22-29) 06/09/24 BUN 37 mg/dL (9-16) H 06/09/24 Creatinine 3.01 mg/dL (0.5-1.4) H 06/09/24 Calcium 10.3 mg/dL (8.4-10.2) H 03/25/24 Phosphorus 2.9 mg/dL (2.7-4.5) 02/26/24 PTH Intact 112.5 pg/mL (8.7-77.1) H 02/26/24 Urine Protein Trace mg/dL (Neg-Trace) 03/25/24 Urine Creatinine 28.97 mg/dL 03/25/24 Renal US 06/20/24 Assessment & Plan Assessment & Plan (1) Chronic kidney disease, stage 4 (severe): Code(s): N18.4 - Chronic kidney disease, stage 4 (severe) Category: Medical (2) Hypertension: Code(s): I10 - Essential (primary) hypertension Category: Medical Qualifiers: Hypertension type: renovascular hypertension Qualified Code(s): I15.0 - Renovascular hypertension (3) Secondary hyperparathyroidism (of renal origin): Code(s): N25.81 - Secondary hyperparathyroidism of renal origin Category: Medical (4) AAA (abdominal aortic aneurysm): Code(s): I71.40 - Abdominal aortic aneurysm, without rupture, unspecified Category: Medical Qualifiers: Abdominal aorta location: infrarenal aorta Presence of rupture: without rupture Qualified Code(s): I71.43 - Infrarenal abdominal aortic aneurysm, without rupture Plan BP at goal. On statins; BS control OK Doppler renal arteries- No sig HARRIET Has infra renal AAA- referred to [facility] [facility] (Infrarenal abdominal aortic aneurysm measuring 2.7 cm. Based on published guidelines in J Am Abdoulaye Radiol 2013; 10(10):789-794 and J Vasc Surg. 2018; 67:2-77, the recommendation for an abdominal aorta with diameter 2.6-2.9 cm is follow-up every 5 years if the aorta that meets the criteria for AAA (>1.5 x proximal normal segment; no f/u if < 1.5 x proximal normal segment; no f/u for aorta < 2.6 cm) BP at goal at home ; Maintain blood sugar at goal 24 hour urine for cr cl- 15 mls/mt; Discussed about renal replacement Follow up labs ordered; F/U in one month Orders: Orders Creatinine 4 Weeks I15.0 - Renovascular hypertension, N18.4 - Chronic kidney disease, stage 4 (severe), N25.81 - Secondary hyperparathyroidism of renal origin Blood Urea Nitrogen 4 Weeks I15.0 - Renovascular hypertension, N18.4 - Chronic kidney disease, stage 4 (severe), N25.81 - Secondary hyperparathyroidism of renal origin Parathyroid Hormone Intact 4 Weeks I15.0 - Renovascular hypertension, N18.4 - Chronic kidney disease, stage 4 (severe), N25.81 - Secondary hyperparathyroidism of renal origin Electrolytes 4 Weeks I15.0 - Renovascular hypertension, N18.4 - Chronic kidney disease, stage 4 (severe), N25.81 - Secondary hyperparathyroidism of renal origin Calcium 4 Weeks I15.0 - Renovascular hypertension, N18.4 - Chronic kidney disease, stage 4 (severe), N25.81 - Secondary hyperparathyroidism of renal origin Referrals Vascular Surgery Referral I71.40 - Abdominal aortic aneurysm, without rupture, unspecified Coding Level of Care Code Est Pt Level 4 (10550) Diagnoses Chronic kidney disease, stage 4 (severe) N18.4 Renovascular hypertension I15.0 Hypertension type: renovascular hypertension Secondary hyperparathyroidism (of renal origin) N25.81 Infrarenal abdominal aortic aneurysm (AAA) without rupture I71.43 Abdominal aorta location: infrarenal aorta Presence of rupture: without rupture
[2024-07-04 13:36] VITALS: BP 144/70; PULSE 72; O2SAT 99; BMI 27.5
== END 2024-07-04 13:58 | disposition home or self-care (01) ==
PROVIDERS: PCP Internal Medicine; Visit Provider Internal Medicine Nephrology
DX: I12.9 Hypertensive chronic kidney disease with stage 1 through stage 4 chronic kidney disease, or unspecified chronic kidney disease (principal); N18.4 Chronic kidney disease, stage 4 (severe); N25.81 Secondary hyperparathyroidism of renal origin; I71.43 Infrarenal abdominal aortic aneurysm, without rupture
CPT/HCPCS: 99214

== ENCOUNTER → 2024-07-04 13:10 | Outpatient (BNVA) | payer OTHER, SELFPAY | PROVIDERS: PCP Internal Medicine; Visit Provider Internal Medicine Nephrology | DX: E11.22 Type 2 diabetes mellitus with diabetic chronic kidney disease (principal); I15.0 Renovascular hypertension; N18.4 Chronic kidney disease, stage 4 (severe); N25.81 Secondary hyperparathyroidism of renal origin; I71.43 Infrarenal abdominal aortic aneurysm, without rupture | CPT/HCPCS: 99212 ==

== ENCOUNTER 2024-07-08 12:33 | Outpatient (AMB) | payer OTHER, SELFPAY ==
--- NOTE | 2024-07-08 12:51 | MHC.OFFVIS ---
Vital Signs 07/08/24 13:10 Height 5 ft Weight 140 lb 3.424 oz BMI 27.4 Blood Pressure Location Rt brachial Position Sitting Pulse 74 Pulse Source Pulse Oximeter Pulse Oximetry (%) 99 Oxygen Delivery Method Room Air Intake Visit Reasons: 6 month follow up Intake Note: Alicia presents in office today for a scheduled 6 mos FUV. CC; Alicia was prescribed senna and pantoprazole at their last visit. Pt states that the senna is still working OK but it is slightly too effective. Pt states that if they take the senna, they will be having diarrhea all day. Pt also had concerns regarding the powder laxative that they are taking. Pt cannot recall the name that belongs to the laxative. Pt does state that they know it is not miralax as they have tried that medication before. Strip Catcher Required: No Allergies aspirin [Aspirin] Allergy (Severe, Verified 07/08/24 13:12) MOUTH SWELLING hydrochlorothiazide [Hydrochlorothiazide] Allergy (Intermediate, Verified 07/08/24 13:12) DROP IN BLOOD PRESSURE Penicillins [PENICILLINS] Allergy (Intermediate, Verified 07/08/24 13:12) ITCHING caffeine [Caffeine] Allergy (Mild, Verified 07/08/24 13:12) NERVOUSNESS lisinopril [Lisinopril] Allergy (Mild, Verified 07/08/24 13:12) CHANGES IN BLOOD PRESSURE ranitidine [RANITIDINE] Allergy (Mild, Verified 07/08/24 13:12) HEADACHE amlodipine [AMLODIPINE] Allergy (Unknown, Verified 07/08/24 13:12) UNKNOWN amoxicillin Allergy (Unknown, Verified 07/08/24 13:12) itching, severe with rash diclofenac Allergy (Unknown, Verified 07/08/24 13:12) Unknown escitalopram Allergy (Unknown, Verified 07/08/24 13:12) abdominal discomfort, drowsiness esomeprazole [Nexium] Allergy (Unknown, Verified 07/08/24 13:12) Unknown isosorbide [ISOSORBIDE] Allergy (Unknown, Verified 07/08/24 13:12) UNKNOWN lidocaine [Lidoderm] Allergy (Unknown, Verified 07/08/24 13:12) weakness mirtazapine Allergy (Unknown, Verified 07/08/24 13:12) Unknown nystatin Allergy (Unknown, Verified 07/08/24 13:12) rash sertraline [SERTRALINE] Allergy (Unknown, Verified 07/08/24 13:12) UNKNOWN dexlansoprazole [From DEXILANT] Adverse Reaction (Severe, Verified 07/08/24 13:12) AGITATION hydrocortisone [From Cortizone-10] Adverse Reaction (Mild, Verified 07/08/24 13:12) RAISES BLOOD SUGAR topiramate [From TOPAMAX] Adverse Reaction (Unknown, Verified 07/08/24 13:12) AGITATION From PLAVIX Allergy (Unknown, Uncoded 03/31/24 13:48) PT UNSURE OF REACTION Medical tape Allergy (Unknown, Uncoded 03/31/24 13:48) Rash HPI HPI 6 month follow up: Details: LAST VISIT: GERD (gastroesophageal reflux disease) Chronic idiopathic constipation Plan Patient will continue taking pantoprazole daily. Continue avoiding dietary triggers late night snacking. Staying upright for minimum 3 hours after meals discussed with patient. Patient was encouraged to eat smaller meals and more often. Continue taking Senokot daily. Increase activity to promote better bowel motility. I will see patient in 6 months, sooner on as needed basis. Patient is agreeable to this plan and verbalizes understanding of instructions. She was given the opportunity to ask questions and all questions answered. ? Thank you for allowing me to participate in her care Medications Changed Changed From sennosides 17.2 mg (2 x 8.6 mg) PO DAILY 30 days 180 tabs 4RF constipation Changed To sennosides 17.2 mg (2 x 8.6 mg) PO DAILY 180 tabs 4RF constipation Refilled pantoprazole 40 mg PO DAILY 90 tabs 3RF K21.9 Discontinued polyethylene glycol 3350 Discontinued Reason: Doctor's Order 17 grams PO DAILY 90 days 100 ea 5RF constipation TODAY'S VISIT Patient is here today for follow-up. Patient reports that her symptoms of acid reflux are suppressed for the most part. Currently taking pantoprazole 40 mg, CKD will decrease the dose to 20 mg daily. Patient reports that she is drinking plenty fluids. Patient reports that when she takes 2 Senokot she will have loose stools. Patient states that she tried to take 1 and feels like it is sufficient enough for her. Patient is not currently on any fiber therapy. Not really taking any fiber supplements. Patient does admit that she is eating fairly healthy. [facility] Medical History Chronic kidney disease, stage 4 (severe) Type 2 diabetes mellitus Obesity Skin abrasion HARRIET (renal artery stenosis) Left bundle branch block Nonischemic cardiomyopathy Urinary incontinence GERD (gastroesophageal reflux disease) COVID-19 Pneumonia due to COVID-19 virus Vertigo Obesity (BMI 30-39.9) Depression Anxiety Stasis edema of both lower extremities Cardiomyopathy Pure hypercholesterolemia Hyperkalemia Renal artery stenosis Benign essential hypertension Conjunctival hemorrhage of right eye Surgical History Hx of colonoscopy Hx of myomectomy History of cataract surgery History of lumpectomy of left breast History of cholecystectomy Family History Father CVD (cardiovascular disease) Myocardial infarction Mother Myocardial infarction CVD (cardiovascular disease) Brother Myocardial infarction Family/Other FH: prostate cancer Social History Household Members: None Housing: Apartment Do you presently have visiting nurse or other home services: No Alcohol intake: never Patient Tobacco Use Status: Former Tobacco user Tobacco use type: Cigarette e-Cigarette/Vaping Use: Never Used Second Hand Smoke Exposure: No Advance Directives Date on File: 08/06/21 service: No Current occupational status: disabled Cognitive needs: No Hearing needs: No Vision needs: Yes Review of Systems Const Denies weight gain and Denies weight loss ENT Reports no additional complaints, Denies dysphagia and Denies odynophagia Card Reports no additional complaints Resp Reports no additional complaints GI Denies abdominal pain, Denies belching, Denies melena, Denies bloating, Denies change in bowel habits, Denies dysphagia, Denies excessive flatus, Denies dyspepsia, Denies heartburn, Denies diarrhea, Denies loose stools, Denies nausea, Denies odynophagia and Denies vomiting Musc Reports no additional complaints Neuro Reports no additional complaints Psych Reports no additional complaints Endo Reports no additional complaints Physical Exam Vital Signs: Last Vital Signs Pulse 74 07/08/24 13:10 Pulse Ox 99 07/08/24 13:10 Oxygen Delivery Method Room Air 07/08/24 13:10 BMI result Body Mass Index 27.4 Const General: healthy appearing, no acute distress and well developed Nutritional Appearance: obese Orientation/consciousness: patient oriented x3 Resp Effort & Inspection: normal respiratory effort, able to speak in complete sentences, no tracheal deviation and symmetric chest movement Auscultation: clear to auscultation bilaterally Cardio Rate: regular rate GI Inspection: Yes normal to inspection, No distended and Yes obesity Palpation (GI): Soft to palpation, not firm, nontender and No hepatosplenomegaly present Auscultation: normal bowel sounds General: Yes no CVA tenderness Back/Spine/Pelvis Back: no CVA tenderness Skin General skin exam: elasticity normal, turgor normal and dry skin Neuro General: patient oriented x3 Psych Appearance: grossly normal Mental Status: mental status grossly normal Assessment & Plan Assessment & Plan (1) GERD (gastroesophageal reflux disease): Code(s): K21.9 - Gastro-esophageal reflux disease without esophagitis Category: Medical Qualifiers: Esophagitis presence: esophagitis presence not specified Qualified Code(s): K21.9 - Gastro-esophageal reflux disease without esophagitis (2) Chronic idiopathic constipation: Code(s): K59.04 - Chronic idiopathic constipation Plan Decrease pantoprazole 20 mg daily. Her symptoms of acid reflux are suppressed. Discussed with patient avoiding dietary triggers and late night snacking. Staying upright for minimum 3 hours after meals discussed with patient. Patient will take senna 1-2 tablets daily, hold if diarrhea. Will add fiber. Increase fiber intake as well. Patient will follow-up in the office in months, sooner on as needed basis. She is agreeable to this plan and verbalizes understanding of instructions. She was given the opportunity to ask questions and all questions answered. Thank you for allowing me to participate in her care Medications: New methylcellulose (laxative) (Citrucel) take it with full glass of water 500 mg PO DAILY 30 tabs 2RF K59.00 - Constipation, unspecified pantoprazole 20 mg PO DAILY 90 tabs 1RF Discontinued pantoprazole Discontinued Reason: Doctor's Order 40 mg PO DAILY 90 tabs 3RF K21.9 - Gastro-esophageal reflux disease without esophagitis Coding Level of Care Code Est Pt Level 3 (14429) Diagnoses Gastroesophageal reflux disease, unspecified whether esophagitis present K21.9 Esophagitis presence: esophagitis presence not specified Chronic idiopathic constipation K59.04 Time Spent (min) 25 Comment 15 minutes spent with patient and additional 10 minutes spent reviewing her records
[2024-07-08 13:10] VITALS: PULSE 74; O2SAT 99; BMI 27.4
== END 2024-07-08 13:47 | disposition home or self-care (01) ==
PROVIDERS: PCP Internal Medicine; Visit Provider Nurse Practitioner Family
DX: K21.9 Gastro-esophageal reflux disease without esophagitis (principal); K59.04 Chronic idiopathic constipation
CPT/HCPCS: 99213

== ENCOUNTER → 2024-07-08 12:33 | Outpatient (BNVA) | payer OTHER, SELFPAY | PROVIDERS: PCP Internal Medicine; Visit Provider Nurse Practitioner Family | DX: K21.9 Gastro-esophageal reflux disease without esophagitis (principal); K59.04 Chronic idiopathic constipation; Z79.899 Other long term (current) drug therapy | CPT/HCPCS: 99212 ==

== ENCOUNTER 2024-07-25 10:07 | Outpatient (REF) | payer OTHER, SELFPAY ==
[2024-07-25 10:26] LABS: MANUAL DIFF FLAG NO
[2024-07-25 11:06] LABS: Basophils Percent Auto 0.5 % (0-2); Eosinophils Percent Auto 0.5 % (0-4); Hematocrit 37.1 % (37.0-47.0); Imm Gran Abs Auto 0.02 X10*3/uL (0.00-0.03); Imm Gran Pct Auto 0.4 % (0.0-0.4); Lymphocytes Absolute Auto 1.1 X10*3/uL (1.2-4.9); Lymphocytes Percent Auto 19.7 % (20-40); Mean Corpuscular HGB Conc 32.3 g/dl (31.0-35.0); Mean Corpuscular Hemoglobin 29.7 pg (27.0-33.0); Mean Corpuscular Volume 91.8 fL (80.0-98.0); Mean Platelet Volume 12.2 fL (9.4-12.3); Monocytes Absolute Auto 0.6 X10*3/uL (0.1-1.2); Neutrophils Absolute Auto 3.8 x10*3/uL (2.0-8.3); Neutrophils Percent Auto 67.9 % (45-73); Platelet Count 220 X10*3/uL (160-400); Red Blood Count 4.04 X10*6/uL (4.20-5.50); Red Cell Distribution Width 14.8 % (11.0-16.0); White Blood Count 5.5 X10*3/uL (4.8-10.8)
[2024-07-25 11:12] LABS: Estimated Average Glucose 180 mg/dL; Hemoglobin A1C 190.2102 umol/L; Hemoglobin A1c % 7.9 % (<6.0); Total Hemoglobin (HGBA1C) 3050.5833 umol/L
[2024-07-25 12:38] LABS: Appearance Urine Cloudy; Color Urine Yellow; Glucose Urine UA Negative (Negative); Leukocyte Esterase Urine Small (1+) (Negative); Nitrite Urine Negative (Negative); PH 5.5 (5.0-9.0); Specific Gravity - Urine 1.015 (1.005-1.025); UMIC TRIGGER UACC YES; Urine Blood Negative (Negative); Urine Ketones Negative (Negative); Urine Protein 100 (2+) mg/dL (Neg-Trace)
[2024-07-25 13:02] LABS: RBC Urine 0-2 /HPF (0-2); UACC Culture Trigger YES; WBC Urine 0-5 /HPF (0-5)
[2024-07-25 13:03] LABS: Bacteria Urine Trace (None Seen); Hyaline Casts Urine 0-2 /LPF (0-2); Squamous Epithelial Cell Urine 0-2 /HPF (0-2)
[2024-07-25 13:19] LABS: Alanine Aminotransferase 37 U/L (0-31); Albumin Level 4.5 g/dL (3.5-5.0); Alkaline Phosphatase 105 U/L (39-117); Anion Gap 15 (12-20); Aspartate Amino Transferase 39 U/L (5-31); Bilirubin Total 1.1 mg/dL (0.0-1.0); Blood Urea Nitrogen 29 mg/dL (9-16); Calcium 10.5 mg/dL (8.4-10.2); Carbon Dioxide 23 mmol/L (22-29); Chloride 101 mmol/L (96-108); Cholesterol 137 mg/dL (<200); Estimated Glomerular Filt Rate 18; Glucose Fasting 126 mg/dL (60-99); HDL Cholesterol 50 mg/dL (>40); LDL Cholesterol Calculated 69 mg/dL (<100); Potassium 4.6 mmol/L (3.3-5.1); Sodium 134 mmol/L (135-145); Triglycerides 92 mg/dL (<150)
[2024-07-25 13:45] LABS: Creatinine Urine 201.66 mg/dL; Microalbum/Creatinine Ratio Ur 117.5 ug/mg cr (<30)
== END 2024-07-25 10:08 | disposition home or self-care (01) ==
LOC: HO.LAB 10:07
PROVIDERS: PCP Internal Medicine; Visit Provider Internal Medicine
DX: E11.9 Type 2 diabetes mellitus without complications (principal); E78.00 Pure hypercholesterolemia, unspecified; D64.9 Anemia, unspecified; R30.0 Dysuria
CPT/HCPCS: 36415; 80053; 80061; 81001; 82043; 82570; 83036; 85025; 87086

== ENCOUNTER 2024-07-29 12:57 | Outpatient (AMB) | payer OTHER, SELFPAY ==
[2024-07-29 13:00] VITALS: BP 130/72; PULSE 72; O2SAT 97; BMI 27.0
--- NOTE | 2024-07-29 13:00 | A.OFFPC_ITS ---
Vital Signs 07/29/24 13:00 Height 5 ft Weight 138 lb 4 oz BMI 27.0 BP 130/72 Blood Pressure Location Lt brachial Position Sitting Pulse 72 Pulse Source Pulse Oximeter Pulse Oximetry (%) 97 Oxygen Delivery Method Room Air Intake Visit Reasons: 3mth f/u Car Starter Required: No Accompanied by: Self / Same As Patient Allergies aspirin [Aspirin] Allergy (Severe, Verified 07/29/24 13:47) MOUTH SWELLING hydrochlorothiazide [Hydrochlorothiazide] Allergy (Intermediate, Verified 07/29/24 13:47) DROP IN BLOOD PRESSURE Penicillins [PENICILLINS] Allergy (Intermediate, Verified 07/29/24 13:47) ITCHING caffeine [Caffeine] Allergy (Mild, Verified 07/29/24 13:47) NERVOUSNESS lisinopril [Lisinopril] Allergy (Mild, Verified 07/29/24 13:47) CHANGES IN BLOOD PRESSURE ranitidine [RANITIDINE] Allergy (Mild, Verified 07/29/24 13:47) HEADACHE amlodipine [AMLODIPINE] Allergy (Unknown, Verified 07/29/24 13:47) UNKNOWN amoxicillin Allergy (Unknown, Verified 07/29/24 13:47) itching, severe with rash diclofenac Allergy (Unknown, Verified 07/29/24 13:47) Unknown escitalopram Allergy (Unknown, Verified 07/29/24 13:47) abdominal discomfort, drowsiness esomeprazole [Nexium] Allergy (Unknown, Verified 07/29/24 13:47) Unknown isosorbide [ISOSORBIDE] Allergy (Unknown, Verified 07/29/24 13:47) UNKNOWN lidocaine [Lidoderm] Allergy (Unknown, Verified 07/29/24 13:47) weakness mirtazapine Allergy (Unknown, Verified 07/29/24 13:47) Unknown nystatin Allergy (Unknown, Verified 07/29/24 13:47) rash sertraline [SERTRALINE] Allergy (Unknown, Verified 07/29/24 13:47) UNKNOWN dexlansoprazole [From DEXILANT] Adverse Reaction (Severe, Verified 07/29/24 13:47) AGITATION hydrocortisone [From Cortizone-10] Adverse Reaction (Mild, Verified 07/29/24 13:47) RAISES BLOOD SUGAR topiramate [From TOPAMAX] Adverse Reaction (Unknown, Verified 07/29/24 13:47) AGITATION From PLAVIX Allergy (Unknown, Uncoded 07/29/24 13:47) PT UNSURE OF REACTION Medical tape Allergy (Unknown, Uncoded 07/29/24 13:47) Rash Medication List - Last Reconciled 07/29/24 by Boaz Astorga MD acetaminophen (Tylenol Extra Strength) 500 mg PO .TWICE A DAY PRN alprazolam 0.5 mg PO BID PRN blood sugar diagnostic ([employer] Ultra Test strips) USE DIRECTED TO TEST BLOOD SUGAR FOUR TIMES DAILY buspirone 7.5 mg PO DAILY carvedilol 6.25 mg PO BID 90 days ciclopirox 0.77% 1 applic topical BID clotrimazole-betamethasone 1-0.05 % 1 appl topical BID PRN compr.stocking,knee,long,large As directed furosemide 10 mg PO QAM [gloves As directed] [incontinent liners As directed] lancets ([employer] Delica Plus Lancet) USE FOUR TIMES DAILY methylcellulose (laxative) (Citrucel) 500 mg PO DAILY multivit with min-folic acid 200 mcg (Adult Multivitamin Gummies) 1 tab PO DAILY pantoprazole 20 mg PO DAILY propylene glycol 0.6% (Systane Balance) 1 drp ophthalmic (eye) BID PRN rosuvastatin 40 mg PO DAILY 90 days semaglutide (Ozempic) 0.5 mg subcut QWEEK sennosides 17.2 mg (2 x 8.6 mg) PO DAILY spironolactone (Aldactone) 25 mg PO BEDTIME 90 days Tobacco use date assessed: 07/29/24 Fall risk assessment: 1 Fall in past year Last assessed Fall Risk: 07/29/24 Dental Screening Dental Screen Date: 07/29/24 Did you have a dental visit in the last 12 months?: Yes Did you have a dental problem in the last 6 months where you did not have access to dental care?: No Was dental information given to patient?: Patient has dentist HPI 3mth f/u HPI Details Patient comes in today for her follow up visit States that she feels okay She denies any headaches or dizziness Denies any chest pains, no SOB No nausea/vomiting, no abdominal pain No change in bowel habits noted States that her next endocrinology appointment ([facility]) is at the end of the month on 08/20/2024 She had her follow up labs done a few days ago - to discuss her results [facility] Medical History (Updated 07/29/24 @ 14:13 by Boaz Astorga MD) Type 2 diabetes mellitus with chronic kidney disease Chronic kidney disease, stage 4 (severe) Type 2 diabetes mellitus Obesity Skin abrasion HARRIET (renal artery stenosis) Left bundle branch block Nonischemic cardiomyopathy Urinary incontinence GERD (gastroesophageal reflux disease) COVID-19 Pneumonia due to COVID-19 virus Vertigo Obesity (BMI 30-39.9) Depression Anxiety Stasis edema of both lower extremities Cardiomyopathy Pure hypercholesterolemia Hyperkalemia Renal artery stenosis Benign essential hypertension Conjunctival hemorrhage of right eye Surgical History Hx of colonoscopy Hx of myomectomy History of cataract surgery History of lumpectomy of left breast History of cholecystectomy Family History Father CVD (cardiovascular disease) Myocardial infarction Mother Myocardial infarction CVD (cardiovascular disease) Brother Myocardial infarction Family/Other FH: prostate cancer Social History Household Members: None Housing: Apartment Do you presently have visiting nurse or other home services: No Alcohol intake: never Patient Tobacco Use Status: Former Tobacco user Tobacco use type: Cigarette e-Cigarette/Vaping Use: Never Used Second Hand Smoke Exposure: No Advance Directives Date on File: 08/06/21 service: No Current occupational status: disabled Cognitive needs: No Hearing needs: No Vision needs: Yes Questionnaire PHQ-9 Over the last 2 weeks, how often have you been bothered by any of the following problems? 1. Little interest or pleasure in doing things: not at all 2. Feeling down, depressed, or hopeless: not at all 3. Trouble falling or staying asleep, or sleeping too much: not at all 4. Feeling tired or having little energy: not at all 5. Poor appetite or overeating: not at all 6. Feeling bad about yourself - or that you are a failure or have let yourself or your family down: not at all 7. Trouble concentrating on things, such as reading the newspaper or watching television: not at all 8. Moving or speaking so slowly that other people could have noticed. Or the opposite - being so fidgety or restless that you have been moving around a lot more than usual: not at all 9. Thoughts that you would be better off or of hurting yourself in some way: not at all Total score: 0 Depression Screening Interpretation: Negative Depression Screening Done: Yes 44932 - PHQ-9 Billing: Yes Source: Developed by Drs. Kayden Gonzalez, Alka Silver, Harjit Rush and colleagues, with an educational vlad from [employer]. Thrive Questionnaire Date Thrive assessed: 07/29/24 I am a: Patient What is your living situation today?: I have a steady place to live Within the past 12 months, did the food you bought not last and you didn't have the money to get more?: Never true Within the past 12 months, did you worry whether your food would run out before you got money to buy more?: Never true Do you have trouble paying for medicines?: No Do you have trouble getting transportation to medical appointments?: No Do you have trouble paying your heating and electricity bill?: No Do you have trouble taking care of your child, family member or friend?: No Do you have trouble with day-to-day activities such as bathing, preparing meals, shopping, managing finances, etc.?: No Are you currently unemployed and looking for a job?: No Are you interested in more education?: No Please select the resources that you would like help with: None Currently or been in a relationship where the following occur: No concerns reported THRIVE Score: 0 AUDIT C Alcohol Use Questionnaire (AUDIT-C) 1. How often do you have a drink containing alcohol?: Never 3. How often do you have six or more drinks on one occasion?: Never Total Score: 0 Score Reviewed/Action Taken: Yes VIKRAM-7 AMB Questionnaire VIKRAM-7 Date VIKRAM - 7 assessed: 07/29/24 Feeling nervous, anxious, or on edge: 0 = Not at all Not being able to stop or control worryin = Not at all Worrying too much about different things: 0 = Not at all Trouble relaxin = Not at all Being so restless that it is hard to sit still: 0 = Not at all Becoming easily annoyed or irritable: 0 = Not at all Feeling afraid as if something awful might happen: 0 = Not at all Total VIKRAM-7 score (0-4 normal; 5-9 mild; 10-14 moderate; 15-21 severe): 0 Source: Developed by Drs. Kayden Gonzalez, Alka Silver, Harjit Rush and colleagues, with an educational vlad from [employer]. Review of Systems Const Denies chills, Denies fatigue, Denies fever(s) and Denies headache(s) ENT Denies dysphagia, Denies dizziness, Denies otalgia, Denies headache(s), Denies neck pain, Denies odynophagia and Denies sore throat Card Denies chest pain, Denies palpitations and Denies dyspnea Resp Denies chest congestion, Denies cough and Denies dyspnea GI Denies abdominal pain, Denies constipation, Denies dysphagia, Denies heartburn, Denies diarrhea, Denies nausea, Denies odynophagia and Denies vomiting Denies difficulty voiding, Denies nocturia, Denies dysuria, Reports urinary incontinence and Denies urinary urgency Musc Denies back pain and Denies neck pain Skin/Breast Denies rash Neuro Denies dizziness and Denies headache(s) Psych Reports anxiety Endo Denies fatigue and Denies palpitations Physical exam (Primary Care) Vital Signs: Last Vital Signs Pulse 72 07/29/24 13:00 BP 130/72 07/29/24 13:00 Pulse Ox 97 07/29/24 13:00 Oxygen Delivery Method Room Air 07/29/24 13:00 BMI result Body Mass Index 27.0 Tobacco/Smoking Status: Tobacco use Status Tobacco use date assessed 07/29/24 07/29/24 13:04 Patient Tobacco Use Status Former Tobacco user 07/29/24 13:04 Tobacco use type Cigarette 07/29/24 13:04 e-Cigarette/Vaping Use Never Used 07/29/24 13:04 PHQ-9: PHQ-9 Score PHQ-9: Total score 0 07/29/24 14:04 Depression Screening Interpretation: Negative Thrive Assessment: Date of Thrive Assessment Date Thrive assessed 07/29/24 07/29/24 13:04 Currently or been in a relationship where the following occur: No concerns reported Const General: no acute distress and alert HENMT Ears: TM's normal bilaterally and EAC's normal Throat: Yes posterior oropharynx normal and Yes tonsils normal (no TP congestion noted) Neck Neck: Yes no lymphadenopathy and Yes supple Thyroid: Thyroid normal Resp Auscultation: clear to auscultation bilaterally, no rales and no wheezes Cardio Rate: regular rate Rhythm: regular rhythm Heart sounds: no murmurs GI Palpation (GI): Soft to palpation and nontender Auscultation: normal bowel sounds General: Yes no CVA tenderness Back/Spine/Pelvis Back: no CVA tenderness Thoracic/Lumbar Spine: No lumbar spinal tenderness Skin Rashes: no rashes Extrem General: Yes no clubbing, cyanosis or edema Results Reviewed Results Reviewed: Laboratory Tests 03/25/24 07/25/24 07/25/24 09:45 08:15 10:25 WBC 5.5 Hgb 12.0 Hct 37.1 Plt Count 220 Sodium 134 L Potassium 4.6 Creatinine 2.51 H Estimated GFR 18 Fasting Glucose 126 H Hemoglobin A1c % 7.9 H Calcium 10.5 H AST 39 H ALT 37 H Triglycerides 92 Cholesterol 137 LDL Cholesterol, Calc 69 HDL Cholesterol 50 Vitamin B12 704 25-OH Vitamin D Total 32.4 TSH 2.45 Ur Specific [place] 1.015 Urine Protein 100 (2+) H Urine Glucose (UA) Negative Urine Blood Negative Urine Nitrite Negative Ur Leukocyte Esterase Small (1+) H Microalb/Creat Ratio 117.5 H Coding Level of Care Code Est Pt Level 4 (32461) Diagnoses Benign essential hypertension I10 Cardiomyopathy, unspecified type I42.9 Cardiomyopathy type: unspecified Renal artery stenosis I70.1 Chronic kidney disease, stage 4 (severe) N18.4 Type 2 diabetes mellitus with stage 4 chronic kidney disease, without long-term current use of insulin E11.22; N18.4 Chronic kidney disease stage: stage 4 (severe) 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: without regional intermodal 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 driver use Pure hypercholesterolemia E78.00 Elevated TSH R79.89 Gastroesophageal reflux disease, unspecified whether esophagitis present K21.9 Esophagitis presence: esophagitis presence not specified Anxiety F41.9 Depression, unspecified depression type F32.9 Depression Type: unspecified Obesity (BMI 30-39.9) E66.9 Assessment & Plan Assessment & Plan (1) Benign essential hypertension: Code(s): I10 - Essential (primary) hypertension Category: Medical Plan: Reinforced low sodium diet - goal is systolic BP of at least 130 to 140 mm or less Continue Carvedilol 6.25 mg BID and Spironolactone 25 mg Q HS; she is also on Furosemide 10 mg QD Her Losartan was discontinued previously and she has been advised NOT to start back on this due to her advanced CKD Follow up with cardiology as scheduled (2) Cardiomyopathy: Code(s): I42.9 - Cardiomyopathy, unspecified Category: Medical Qualifiers: Cardiomyopathy type: unspecified Qualified Code(s): I42.9 - Cardiomyopathy, unspecified Plan: Continue Carvedilol 6.25 mg BID Patient had a stress test and nuclear MIBI done at [facility] a couple of years ago - both tests came back normal BNP also came back normal when previously checked Follow up with cardiology as scheduled (3) Renal artery stenosis: Code(s): I70.1 - Atherosclerosis of renal artery Category: Medical Plan: She has left HARRIET (seen on renal artery doppler) and will be considered for renal angioplasty if necessary Her BP appears to have improved a lot with the addition of Spironolactone Will continue to observe and monitor her blood pressure regularly for now Follow up with nephrology (Dr. Madrigal) as scheduled (4) Chronic kidney disease, stage 4 (severe): Code(s): N18.4 - Chronic kidney disease, stage 4 (severe) Category: Medical Plan: Patient's serum creatinine and GFR/renal function appear stable on her recent labs - will continue to monitor her GFR and serum creatinine closely Follow up with nephrology (Dr. 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 driver use Qualified Code(s): E11.22 - Type 2 diabetes mellitus with diabetic chronic kidney disease; N18.4 - Chronic kidney disease, stage 4 (severe) Plan: Her HgbA1c was at 7.9% on her labs done a few days ago; was previously at 8.0% a few months ago - goal is <7.0% Reinforced diabetic diet Her Metformin ER 500 mg QD has been discontinued due to her advanced CKD Continue Ozempic 0.5 mg once a week; we tried going up to 1 mg on her Rx but she experienced increased dizziness on the 1 mg dose and this was lowered back to 0.5 mg once a week Her Glimepiride 1 mg Q AM and Januvia were also previously stopped due to hypoglycemia Nephrology recommended adding an SGLT-2 inhibitor and will likely start patient on this at her next follow up visit Follow up with [facility] as scheduled (6) Pure hypercholesterolemia: Code(s): E78.00 - Pure hypercholesterolemia, unspecified Category: Medical Plan: Results of her labs done a few days ago reviewed and discussed with patient Reinforced low cholesterol diet Patient admits to missing her dose of Atorvastatin a few times recently and will try to do better with taking her Rx regularly Continue Atorvastatin 80 mg QD Will recheck her labs and fasting lipids in 3 months for follow up (7) Elevated TSH: Code(s): R79.89 - Other specified abnormal findings of blood chemistry Category: Medical Plan: Her TSH remains normal on her recent labs Her free T4 and T3 levels were normal and TPO Ab level was high when previously checked, suggesting possible Pb's Patient currently appears clinically euthyroid Will continue to monitor her TFTs regularly (8) GERD (gastroesophageal reflux disease): Code(s): K21.9 - Gastro-esophageal reflux disease without esophagitis Category: Medical Qualifiers: Esophagitis presence: esophagitis presence not specified Qualified Code(s): K21.9 - Gastro-esophageal reflux disease without esophagitis Plan: Dietary restrictions reinforced Her Pantoprazole was lowered by GI recently to 20 mg QD Follow up with GI as scheduled (9) Anxiety: Code(s): F41.9 - Anxiety disorder, unspecified Category: Medical Plan: Continue Buspirone 7.5 mg QD and Alprazolam 0.5 mg BID PRN Follow up with psychiatry as scheduled (10) Depression: Code(s): F32.9 - Major depressive disorder, single episode, unspecified Category: Medical Qualifiers: Depression Type: unspecified Qualified Code(s): F32.9 - Major depressive disorder, single episode, unspecified Plan: Follow up with psychiatry as scheduled - patient [facility] to [facility] (11) Obesity (BMI 30-39.9): Code(s): E66.9 - Obesity, unspecified Category: Medical Plan: Reinforced diet; exercise and weight loss are unrealistic given patient's multiple comorbidities and limited activity tolerance as well as her gait instability Plan Follow up in 3 months Orders: Orders Comprehensive [place]. Panel Fast 3 Months E78.00 - Pure hypercholesterolemia, unspecified TSH reflex Free T4 3 Months E78.00 - Pure hypercholesterolemia, unspecified Complete Blood Count Auto Diff 3 Months D64.9 - Anemia, unspecified Lipid Panel 3 Months E78.00 - Pure hypercholesterolemia, unspecified UA CC w/rflx Micro + Cult 3 Months R30.0 - Dysuria Vitamin B12 and Folate 3 Months E53.8 - Deficiency of other specified B group vitamins Vitamin D 25-OH Total 3 Months E55.9 - Vitamin D deficiency, unspecified Hemoglobin A1c 3 Months E11.9 - Type 2 diabetes mellitus without complications
== END 2024-07-29 14:12 | disposition home or self-care (01) ==
PROVIDERS: PCP Internal Medicine; Visit Provider Internal Medicine
DX: I12.9 Hypertensive chronic kidney disease with stage 1 through stage 4 chronic kidney disease, or unspecified chronic kidney disease (principal); N18.4 Chronic kidney disease, stage 4 (severe); E11.22 Type 2 diabetes mellitus with diabetic chronic kidney disease; I42.9 Cardiomyopathy, unspecified; I70.1 Atherosclerosis of renal artery; E78.00 Pure hypercholesterolemia, unspecified; R79.89 Other specified abnormal findings of blood chemistry; K21.9 Gastro-esophageal reflux disease without esophagitis; F41.9 Anxiety disorder, unspecified; F32.9 Major depressive disorder, single episode, unspecified; E66.9 Obesity, unspecified; Z68.27 Body mass index [BMI] 27.0-27.9, adult

== ENCOUNTER → 2024-07-29 12:57 | Outpatient (BNVA) | payer OTHER, SELFPAY | PROVIDERS: PCP Internal Medicine; Visit Provider Internal Medicine | DX: I42.9 Cardiomyopathy, unspecified (principal); I70.1 Atherosclerosis of renal artery; I12.9 Hypertensive chronic kidney disease with stage 1 through stage 4 chronic kidney disease, or unspecified chronic kidney disease; E11.22 Type 2 diabetes mellitus with diabetic chronic kidney disease; N18.4 Chronic kidney disease, stage 4 (severe); R79.89 Other specified abnormal findings of blood chemistry; E78.00 Pure hypercholesterolemia, unspecified; F41.9 Anxiety disorder, unspecified; K21.9 Gastro-esophageal reflux disease without esophagitis; F32.9 Major depressive disorder, single episode, unspecified; E66.9 Obesity, unspecified | CPT/HCPCS: 99212 ==

== ENCOUNTER 2024-08-07 10:32 | Outpatient (REF) | payer OTHER, SELFPAY ==
[2024-08-07 11:46] LABS: Appearance Urine Clear; Color Urine Yellow; Glucose Urine UA Negative (Negative); Leukocyte Esterase Urine Trace (Negative); Nitrite Urine Negative (Negative); Specific Gravity - Urine <= 1.005 (1.005-1.025); UMIC TRIGGER UACC YES; Urine Blood Negative (Negative); Urine Ketones Negative (Negative); Urine Protein Trace mg/dL (Neg-Trace)
[2024-08-07 11:51] LABS: Anion Gap 11 (12-20); Blood Urea Nitrogen 30 mg/dL (9-16); Calcium 10.5 mg/dL (8.4-10.2); Carbon Dioxide 26 mmol/L (22-29); Chloride 103 mmol/L (96-108); Estimated Glomerular Filt Rate 16; Potassium 4.3 mmol/L (3.3-5.1); Sodium 136 mmol/L (135-145)
[2024-08-07 11:57] LABS: Parathyroid Hormone Intact 146.5 pg/mL (8.7-77.1)
[2024-08-07 12:22] LABS: Bacteria Urine None Seen (None Seen); Hyaline Casts Urine 0-2 /LPF (0-2); RBC Urine 0-2 /HPF (0-2); Squamous Epithelial Cell Urine 0-2 /HPF (0-2); WBC Urine 0-5 /HPF (0-5)
== END 2024-08-07 10:33 | disposition home or self-care (01) ==
LOC: HO.LAB 10:32
PROVIDERS: PCP Internal Medicine; Visit Provider Internal Medicine Nephrology
DX: N25.81 Secondary hyperparathyroidism of renal origin (principal); I15.0 Renovascular hypertension; N18.4 Chronic kidney disease, stage 4 (severe)
CPT/HCPCS: 36415; 80051; 81001; 82310; 82565; 83970; 84520

== ENCOUNTER 2024-08-22 10:16 | Outpatient (AMB) | payer OTHER, SELFPAY ==
--- NOTE | 2024-08-22 10:19 | HO.NEPHOV_ITS ---
Vital Signs 08/22/24 10:23 Height 5 ft Weight 136 lb 2 oz BMI 26.6 BP 130/70 Blood Pressure Location Rt brachial Position Sitting Intake Visit Reasons: CKD- Conf Alarm Security Or Surveillance Monitor Required: No Accompanied by: Self / Same As Patient Allergies aspirin [Aspirin] Allergy (Severe, Verified 08/22/24 10:23) MOUTH SWELLING hydrochlorothiazide [Hydrochlorothiazide] Allergy (Intermediate, Verified 08/22/24 10:23) DROP IN BLOOD PRESSURE Penicillins [PENICILLINS] Allergy (Intermediate, Verified 08/22/24 10:23) ITCHING caffeine [Caffeine] Allergy (Mild, Verified 08/22/24 10:23) NERVOUSNESS lisinopril [Lisinopril] Allergy (Mild, Verified 08/22/24 10:23) CHANGES IN BLOOD PRESSURE ranitidine [RANITIDINE] Allergy (Mild, Verified 08/22/24 10:23) HEADACHE amlodipine [AMLODIPINE] Allergy (Unknown, Verified 08/22/24 10:23) UNKNOWN amoxicillin Allergy (Unknown, Verified 08/22/24 10:23) itching, severe with rash diclofenac Allergy (Unknown, Verified 08/22/24 10:23) Unknown escitalopram Allergy (Unknown, Verified 08/22/24 10:23) abdominal discomfort, drowsiness esomeprazole [Nexium] Allergy (Unknown, Verified 08/22/24 10:23) Unknown isosorbide [ISOSORBIDE] Allergy (Unknown, Verified 08/22/24 10:23) UNKNOWN lidocaine [Lidoderm] Allergy (Unknown, Verified 08/22/24 10:23) weakness mirtazapine Allergy (Unknown, Verified 08/22/24 10:23) Unknown nystatin Allergy (Unknown, Verified 08/22/24 10:23) rash sertraline [SERTRALINE] Allergy (Unknown, Verified 08/22/24 10:23) UNKNOWN dexlansoprazole [From DEXILANT] Adverse Reaction (Severe, Verified 08/22/24 10:23) AGITATION hydrocortisone [From Cortizone-10] Adverse Reaction (Mild, Verified 08/22/24 10:23) RAISES BLOOD SUGAR topiramate [From TOPAMAX] Adverse Reaction (Unknown, Verified 08/22/24 10:23) AGITATION From PLAVIX Allergy (Unknown, Uncoded 07/29/24 13:47) PT UNSURE OF REACTION Medical tape Allergy (Unknown, Uncoded 07/29/24 13:47) Rash HPI Comments Details: Alicia was seen in follow for her advanced CKD. She is known to have DM for a long time and is under better control now. She also has hypertension. She does not take NSAID's regularly. She denies any nausea, vomiting, diarrhea, SOB, edema, PND, orthopnea, hematuria, hearing deficits. She claims to be compliant with medications. She is not on SGLT2i. She has no sinusitis, epistaxis, photosensitivity, bone pain, sore throat , hemoptysis, skin lesions or recent antibiotic intake. Her renal functions have been getting worse lately but stable . She denied any active complaints at the time of this office visit [facility] Medical History (Updated 07/29/24 @ 14:13 by Boaz Astorga MD) Type 2 diabetes mellitus with chronic kidney disease Chronic kidney disease, stage 4 (severe) Type 2 diabetes mellitus Obesity Skin abrasion HARRIET (renal artery stenosis) Left bundle branch block Nonischemic cardiomyopathy Urinary incontinence GERD (gastroesophageal reflux disease) COVID-19 Pneumonia due to COVID-19 virus Vertigo Obesity (BMI 30-39.9) Depression Anxiety Stasis edema of both lower extremities Cardiomyopathy Pure hypercholesterolemia Hyperkalemia Renal artery stenosis Benign essential hypertension Conjunctival hemorrhage of right eye Surgical History Hx of colonoscopy Hx of myomectomy History of cataract surgery History of lumpectomy of left breast History of cholecystectomy Family History Father CVD (cardiovascular disease) Myocardial infarction Mother Myocardial infarction CVD (cardiovascular disease) Brother Myocardial infarction Family/Other FH: prostate cancer Social History Household Members: None Housing: Apartment Do you presently have visiting nurse or other home services: No Alcohol intake: never Patient Tobacco Use Status: Former Tobacco user Tobacco use type: Cigarette e-Cigarette/Vaping Use: Never Used Second Hand Smoke Exposure: No Advance Directives Date on File: 08/06/21 service: No Current occupational status: disabled Cognitive needs: No Hearing needs: No Vision needs: Yes Review of Systems Const All systems reviewed & are unremarkable except as noted in HPI and below Physical Exam Vital Signs: BMI result Body Mass Index 26.6 Const General: comfortable and no acute distress Orientation/consciousness: patient oriented x3 HEENT Head: Yes normocephalic Mouth: Normal oral and palatal mucosa present Eyes EOM: EOMs intact bilaterally Neck Neck: Yes supple Resp Auscultation: clear to auscultation bilaterally Cardio Jugular venous distension: no JVD Rate: regular rate GI Palpation (GI): Soft to palpation Auscultation: normal bowel sounds General: Yes no CVA tenderness Back/Spine/Pelvis Back: no CVA tenderness Skin General skin exam: no rashes or lesions noted Neuro General: patient oriented x3 and moves all extremities Extrem General: Yes no pedal edema Results Reviewed Nephrology Results: Hgb 12.0 g/dl (12.0-16.0) 07/25/24 WBC 5.5 X10*3/uL (4.8-10.8) 07/25/24 Plt Count 220 X10*3/uL (160-400) 07/25/24 Sodium 136 mmol/L (135-145) 08/07/24 Potassium 4.3 mmol/L (3.3-5.1) 08/07/24 Chloride 103 mmol/L (96-108) 08/07/24 Carbon Dioxide 26 mmol/L (22-29) 08/07/24 BUN 30 mg/dL (9-16) H 08/07/24 Creatinine 2.79 mg/dL (0.5-1.4) H 08/07/24 Calcium 10.5 mg/dL (8.4-10.2) H 08/07/24 PTH Intact 146.5 pg/mL (8.7-77.1) H 08/07/24 Urine Protein Trace mg/dL (Neg-Trace) 08/07/24 Urine Creatinine 201.66 mg/dL 07/25/24 Renal US 06/20/24 Assessment & Plan Assessment & Plan (1) Type 2 diabetes mellitus with chronic kidney disease: Code(s): E11.22 - Type 2 diabetes mellitus with diabetic chronic kidney disease Category: Medical Qualifiers: 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 usp insulin use: without joint terminal attack controller use Chronic kidney disease stage: stage 4 (severe) Qualified Code(s): E11.22 - Type 2 diabetes mellitus with diabetic chronic kidney disease; N18.4 - Chronic kidney disease, stage 4 (severe) (2) Secondary hyperparathyroidism (of renal origin): Code(s): N25.81 - Secondary hyperparathyroidism of renal origin Category: Medical (3) Hypertension: Code(s): I10 - Essential (primary) hypertension Category: Medical Qualifiers: Hypertension type: renovascular hypertension Qualified Code(s): I15.0 - Renovascular hypertension (4) Chronic kidney disease, stage 4 (severe): Code(s): N18.4 - Chronic kidney disease, stage 4 (severe) Category: Medical Plan BP at goal at home. On statins; BS control OK Doppler renal arteries- No significant HARRIET Has infra renal AAA- referred to [facility] [place] (Infrarenal abdominal aortic aneurysm measuring 2.7 cm. Based on published guidelines in J Am Abdoulaye Radiol 2013; 10(10):789-794 and J Vasc Surg. 2018; 67:2-77, the recommendation for an abdominal aorta with diameter 2.6-2.9 cm is follow-up every 5 years if the aorta that meets the criteria for AAA (>1.5 x proximal normal segment; no f/u if < 1.5 x proximal normal segment; no f/u for aorta < 2.6 cm) 24 hour urine for cr cl- 15 mls/mt; Discussed about renal replacement Follow up labs ordered; F/U in one month Orders: Orders Creatinine 2 Months E11.22 - Type 2 diabetes mellitus with diabetic chronic kidney disease, I15.0 - Renovascular hypertension, N18.4 - Chronic kidney disease, stage 4 (severe), N25.81 - Secondary hyperparathyroidism of renal origin Blood Urea Nitrogen 2 Months E11.22 - Type 2 diabetes mellitus with diabetic chronic kidney disease, I15.0 - Renovascular hypertension, N18.4 - Chronic kidney disease, stage 4 (severe), N25.81 - Secondary hyperparathyroidism of renal origin Electrolytes 2 Months E11.22 - Type 2 diabetes mellitus with diabetic chronic kidney disease, I15.0 - Renovascular hypertension, N18.4 - Chronic kidney di sease, stage 4 (severe), N25.81 - Secondary hyperparathyroidism of renal origin Referrals Vascular Surgery Referral I71.43 - Infrarenal abdominal aortic aneurysm, without rupture Coding Level of Care Code Est Pt Level 4 (30741) Diagnoses Type 2 diabetes mellitus with stage 4 chronic kidney disease, without long-term current use of insulin E11.22; N18.4 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 usp insulin use: without usp use Chronic kidney disease stage: stage 4 (severe) Secondary hyperparathyroidism (of renal origin) N25.81 Renovascular hypertension I15.0 Hypertension type: renovascular hypertension Chronic kidney disease, stage 4 (severe) N18.4
[2024-08-22 10:23] VITALS: BP 130/70; BMI 26.6
== END 2024-08-22 10:48 | disposition home or self-care (01) ==
LOC: HO.HKA 10:17
PROVIDERS: PCP Internal Medicine; Visit Provider Internal Medicine Nephrology
DX: I12.9 Hypertensive chronic kidney disease with stage 1 through stage 4 chronic kidney disease, or unspecified chronic kidney disease (principal); E11.22 Type 2 diabetes mellitus with diabetic chronic kidney disease; N18.4 Chronic kidney disease, stage 4 (severe); I71.43 Infrarenal abdominal aortic aneurysm, without rupture; N25.81 Secondary hyperparathyroidism of renal origin
CPT/HCPCS: 99214

== ENCOUNTER → 2024-08-22 10:16 | Outpatient (BNVA) | payer OTHER, SELFPAY | PROVIDERS: PCP Internal Medicine; Visit Provider Internal Medicine Nephrology | DX: E11.22 Type 2 diabetes mellitus with diabetic chronic kidney disease (principal); N18.4 Chronic kidney disease, stage 4 (severe); N25.81 Secondary hyperparathyroidism of renal origin; I15.0 Renovascular hypertension | CPT/HCPCS: 99212 ==

== ENCOUNTER 2024-09-30 12:52 | Outpatient (AMB) | payer OTHER, SELFPAY ==
--- NOTE | 2024-09-30 12:58 | MHC.OFFVIS ---
Intake Visit Reasons: [employer] TRAINER/HHC referral for 2.7 infrarenal AAA Intake Note: NPV Nursing Agency Manager Required: Yes Nursing Agency Manager Services: Nursing Agency Manager Present Nursing Agency Manager Name: Tiffany [id number] Accompanied by: Self / Same As Patient Allergies aspirin [Aspirin] Allergy (Severe, Verified 08/22/24 10:23) MOUTH SWELLING hydrochlorothiazide [Hydrochlorothiazide] Allergy (Intermediate, Verified 08/22/24 10:23) DROP IN BLOOD PRESSURE Penicillins [PENICILLINS] Allergy (Intermediate, Verified 08/22/24 10:23) ITCHING caffeine [Caffeine] Allergy (Mild, Verified 08/22/24 10:23) NERVOUSNESS lisinopril [Lisinopril] Allergy (Mild, Verified 08/22/24 10:23) CHANGES IN BLOOD PRESSURE ranitidine [RANITIDINE] Allergy (Mild, Verified 08/22/24 10:23) HEADACHE amlodipine [AMLODIPINE] Allergy (Unknown, Verified 08/22/24 10:23) UNKNOWN amoxicillin Allergy (Unknown, Verified 08/22/24 10:23) itching, severe with rash diclofenac Allergy (Unknown, Verified 08/22/24 10:23) Unknown escitalopram Allergy (Unknown, Verified 08/22/24 10:23) abdominal discomfort, drowsiness esomeprazole [Nexium] Allergy (Unknown, Verified 08/22/24 10:23) Unknown isosorbide [ISOSORBIDE] Allergy (Unknown, Verified 08/22/24 10:23) UNKNOWN lidocaine [Lidoderm] Allergy (Unknown, Verified 08/22/24 10:23) weakness mirtazapine Allergy (Unknown, Verified 08/22/24 10:23) Unknown nystatin Allergy (Unknown, Verified 08/22/24 10:23) rash sertraline [SERTRALINE] Allergy (Unknown, Verified 08/22/24 10:23) UNKNOWN dexlansoprazole [From DEXILANT] Adverse Reaction (Severe, Verified 08/22/24 10:23) AGITATION hydrocortisone [From Cortizone-10] Adverse Reaction (Mild, Verified 08/22/24 10:23) RAISES BLOOD SUGAR topiramate [From TOPAMAX] Adverse Reaction (Unknown, Verified 08/22/24 10:23) AGITATION From PLAVIX Allergy (Unknown, Uncoded 07/29/24 13:47) PT UNSURE OF REACTION Medical tape Allergy (Unknown, Uncoded 07/29/24 13:47) Rash HPI HPI [employer] TRAINER/HHC referral for 2.7 infrarenal AAA: Details: Very pleasant 79-year-old female presents for evaluation regarding abdominal aortic aneurysm. She had actually been seen by Nephrology for CKD. She had undergone ultrasound of kidneys with renal artery Doppler. This was for uncontrolled hypertension. Upon workup she was found to have a small aortic aneurysm. She now presents to us for vascular evaluation [facility] Medical History (Updated 07/29/24 @ 14:13 by Boaz Astorga MD) Type 2 diabetes mellitus with chronic kidney disease Chronic kidney disease, stage 4 (severe) Type 2 diabetes mellitus Obesity Skin abrasion HARRIET (renal artery stenosis) Left bundle branch block Nonischemic cardiomyopathy Urinary incontinence GERD (gastroesophageal reflux disease) COVID-19 Pneumonia due to COVID-19 virus Vertigo Obesity (BMI 30-39.9) Depression Anxiety Stasis edema of both lower extremities Cardiomyopathy Pure hypercholesterolemia Hyperkalemia Renal artery stenosis Benign essential hypertension Conjunctival hemorrhage of right eye Surgical History Hx of colonoscopy Hx of myomectomy History of cataract surgery History of lumpectomy of left breast History of cholecystectomy Family History Father CVD (cardiovascular disease) Myocardial infarction Mother Myocardial infarction CVD (cardiovascular disease) Brother Myocardial infarction Family/Other FH: prostate cancer Social History Household Members: None Housing: Apartment Do you presently have visiting nurse or other home services: No Alcohol intake: never Patient Tobacco Use Status: Former Tobacco user Tobacco use type: Cigarette e-Cigarette/Vaping Use: Never Used Second Hand Smoke Exposure: No Advance Directives Date on File: 08/06/21 service: No Current occupational status: disabled Cognitive needs: No Hearing needs: No Vision needs: Yes Review of Systems Const All systems reviewed & are unremarkable except as noted in HPI and below Denies chills, Denies daytime sleepiness, Denies fatigue, Denies fever(s), Denies poor appetite, Denies snoring, Denies stops breathing during sleep, Denies weakness, Denies weight gain and Denies weight loss Eyes Denies loss of vision ENT Reports Normal hearing present, Denies dizziness and Denies hearing loss Card Denies chest pain, Denies irregular heart rhythm, Denies claudication, Denies leg edema, Denies lightheadedness, Denies palpitations, Denies dyspnea on exertion and Denies orthopnea Resp Denies cough, Denies excessive phlegm production, Denies dyspnea on exertion, Denies snoring and Denies wheezing GI Denies abdominal pain, Denies hematochezia, Denies change in bowel habits, Denies nausea and Denies vomiting Denies urinary frequency and Denies dysuria Musc Denies arthralgias, Denies muscle weakness, Denies numbness and Denies other Skin/Breast Denies nail changes and Denies rash Neuro Reports Normal hearing present, Denies Abnormal speech present, Denies dizziness, Denies loss of vision, Denies memory loss, Denies numbness and Denies weakness Psych Denies depression and Denies memory loss Endo Denies fatigue and Denies palpitations Hayden/Lymph Denies easy bruising Aller/Immun Denies wheezing Physical Exam Const General: cooperative, healthy appearing and comfortable Orientation/consciousness: oriented to person, oriented to place and oriented to time HEENT Head: Yes normal to inspection Neck Neck: Yes normal visual inspection Carotids: no bruits Chest Chest palpation & inspection: normal inspection of the chest Resp Effort & Inspection: normal respiratory effort and able to speak in complete sentences Auscultation: clear to auscultation bilaterally, no crackles, no rales, no rhonchi and no wheezes Cardio Rate: regular rate Rhythm: regular rhythm Heart sounds: S1 normal heart sound present and S2 normal heart sound present Bruits: no carotid bruits Peripheral pulses: Peripheral pulses 2+ throughout GI Inspection: Yes normal to inspection Skin Wounds: no wounds Hair: normal Neuro General: oriented to person, oriented to place and oriented to time Cranial nerves: Yes CN's II-XII intact bilaterally and Yes Normal hearing present Cognition (Neuro): normal cognition Speech: No Abnormal speech present Motor exam (neuro): 5/5 motor strength present throughout Extrem Other: venous exam: No significant superficial varicosities or spider telangiectasias, minimal edema General: No clubbing, No cyanosis and No edema Psych Appearance: grossly normal Mental Status: mental status grossly normal Speech and movement: Normal speech and movement present Results Reviewed Results Reviewed: Ultrasound dated 06/20/2024 demonstrates infrarenal aortic aneurysm measuring 2.7 cm. This was compared to CT of the abdomen done in November of 2020 and at that time it was 2.5 cm. Assessment & Plan Assessment & Plan (1) AAA (abdominal aortic aneurysm): Code(s): I71.40 - Abdominal aortic aneurysm, without rupture, unspecified Category: Medical Qualifiers: Abdominal aorta location: infrarenal aorta Presence of rupture: without rupture Qualified Code(s): I71.43 - Infrarenal abdominal aortic aneurysm, without rupture Plan: In short patient has radiologic evidence of a AAA on ultrasound of a small 2.7 cm aneurysm. We have discussed the pathophysiology of aortic aneurysms and the risk of ruptures. We have discussed rupture risk based on size. In addition we have discussed conservative measures and risk factor modification for prevention of increase in size of the aneurysm. the patient is scheduled for surveillance follow-up in approximately 1 year. Thank you for allowing us to participate in the care of this patient Orders: Orders US abdominal aortic aneurysm 1 Year I71.43 - Infrarenal abdominal aortic aneurysm, without rupture Coding Level of Care Code New Pt Level 4 (19197) Diagnoses Infrarenal abdominal aortic aneurysm (AAA) without rupture I71.43 Abdominal aorta location: infrarenal aorta Presence of rupture: without rupture
== END 2024-09-30 13:24 | disposition home or self-care (01) ==
PROVIDERS: PCP Internal Medicine; Visit Provider Surgery Vascular Surgery
DX: I71.43 Infrarenal abdominal aortic aneurysm, without rupture (principal)
CPT/HCPCS: 99204

== ENCOUNTER → 2024-09-30 12:52 | Outpatient (BNVA) | payer OTHER, SELFPAY | PROVIDERS: PCP Internal Medicine; Visit Provider Surgery Vascular Surgery | DX: I71.43 Infrarenal abdominal aortic aneurysm, without rupture (principal) | CPT/HCPCS: 99202 ==

== ENCOUNTER 2024-10-13 11:11 | Outpatient (AMB) | payer OTHER, SELFPAY ==
--- OUTSIDE RECORDS SUMMARY | 2024-10-13 11:13 | XMS_ITS | Continuity of Care Document ---
Author Organization [facility] [address] [place] [address] Phone [phone] Care Team Providers Care Fire Prevention Inspector Name Role Phone Boaz Astorga Care Team Information Airport Location Manager [phone] Problems Active Problems Provider Date Anxiety Ricci Vanegas M.D. Onset: 03/2023 Benign hypertension Ricci Vanegas M.D. Onset: 08/27/2023 Cardiomyopathy Ricci Vanegas M.D. Onset: 03/2023 Chronic kidney disease stage 4 Ricci Vanegas M.D. Onset: 08/27/2023 Gastroesophageal reflux disease Ricci Vanegas M.D. Onset: 08/27/2023 Hyperkalemia Ricci Vanegas M.D. Onset: 03/2023 Left bundle branch block Ricci Vanegas M.D. O nset: 08/27/2023 Obesity Ricci Vanegas M.D. Onset: 03/2023 Pure hypercholesterolemia Ricci Vanegas M.D. Onset: 08/27/2023 Renal artery stenosis Ricci Vanegas M.D. Onse t: 08/27/2023 Type 2 diabetes mellitus Ricci Vanegas M.D. O nset: 08/27/2023 Vertigo Ricci Vanegas M.D. Onset: 03/2023 Urinary incontinence Ricci Vanegas M.D. Onset : 08/27/2023 Chronic renal failure Ricci Vanegas M.D. Onse t: 08/27/2023 Social History Type Date Description Comments Sex Unknown Tobacco Use Start: Unknown Never Smoked Cigarettes Smoking Status Reviewed: 08/27/23 Never Smoked Cigaret amrita ETOH Use Never used alcohol Allergies and adverse reactions Active Allergies Criticality Reaction Severity Comments Date Aspirin Unable to assess criticality Mouth Swelling Severe 08/27/2023 Hydrochlorothiazide Unable to assess criticality Drop in bp 08/27/2023 Penicillins Unable to assess criticality Itching 08/27/2023 Caffeine Unable to assess criticality nervousness Mild 08/27/2023 Lisinopril Unable to assess criticality changes in BP Mild 08/27/2023 Ranitidine Unable to assess criticality headache Mild 08/27/2023 Amlodipine Unable to assess criticality 08/27/2023 Amoxicillin Unable to assess criticality Itching Severe 08/27/2023 Diclofenac Unable to assess criticality 08/27/2023 Escitalopram Unable to assess criticality 08/27/2023 Esomeprazole Unable to assess criticality 08/27/2023 Isosorbide Unable to assess criticality 08/27/2023 Lidocaine Unable to assess criticality weakness 08/27/2023 Mirtazapine Unable to assess criticality 08/27/2023 Nystatin Unable to assess criticality rash 08/27/2023 Sertraline Unable to assess criticality 08/27/2023 Dexlansoprazole Unable to assess criticality agitation Severe 08/27/2023 Hydrocortisone Unable to assess criticality Raises blood sugar Mild 08/27/2023 Topiramate Unable to assess criticality Agitation 08/27/2023 Medications Active Medications SIG Qnty Indications Order ing Provider Date Ozempic (0.25 Or 0.5 MG/Dose)2mg/3ML Solution Pen-Inject Inject 0.5 MG Under The Skin Once Weekly 3units E11.9 Анна Sanchez M.D. 02/08/2024 Clotrimazole/Betameth asone Dipropionate1-0.05% Cream Aplique Al [place] Afectada Topically Dos Veces Al D A [place] For Bola Rizwan, Boaz Rosuvastatin [id number] Tablets [place] Sejal Tableta Todos Los D as Rizwan, Boaz Alprazolam0.5mg Tablets [place] Sejal Tableta Dos Veces Al D A [place] Unknown Pantoprazole [id number] Tablets DR [place] Sejal Tableta Todos [place] D as Rizwan, Boaz Buspirone HCL7.5mg Tablets [place] Sejal Tableta Todos [place] D as Unknown Onetouch Delica Plus Lancets Extra Fine 33GPlus 33G Misc Use Four Times Daily Rizwan, Boaz [id number] Tablets [place] Sejal Tableta Todos [place] D as Al Acostarse [place], [place] Onetouch UltraStrips Use as Directed To Test Blood Sugar Four Times Daily Rizwan, Boaz Carvedilol6.25mg Tablets [place] Sejal Tableta Dos Veces Al D A Rizwan, [place] Vital Signs Date Vital Result Comment 05/09/2024 1:12pm BP Systolic 110 mmHg BP Diastolic 70 mmHg Heart Rate 45 /min Height 60 inches 5'0 Weight 143.25 lb BMI (Body Mass Index) 28.0 kg/m2 Results Test Acquired Date Facility Test Result H/L [place] Laboratory test finding 05/09/2024 Inhouse Glucose Fingerstick 185 Hemoglobin A1c 7.9% Laboratory test finding 03/06/2024 Inhouse Glucose Fingerstick 193 Laboratory test finding 02/05/2024 Inhouse Glucose Fingerstick 195 Hemoglobin A1c 8.1% Laboratory test finding 08/27/2023 Inhouse Glucose Fingerstick 180 Hemoglobin A1c 8.1% Medical Devices Description No Information Available Encounters Type Date Location Provider Dx Diagnosis Office Visit 05/09/2024 1:00p Main Office AGUSTIN Lynch E11.9 Type 2 diabet es mellitus without complications E78.00 Pure hypercholestero lemia, unspecified Assessments Date Code Description Provider 05/09/2024 E11.9 Type 2 diabetes mellitus wit hout complications AGUSTIN Lynch 05/09/2024 E78.00 Hypercholesterolemia AGUSTIN Lynch Plan of Treatment Future Appointment(s):* 12/02/2024 2:45 pm - AGUSTIN Lynch at Main Office 05/09/2024 - AGUSTIN Lynch* E11.9 Type 2 diabetes mellitus without complications * E78.00 Hypercholesterolemia Functional Status Description No Information Available Mental Status Description No Information Available Referrals Refer to Reason for Referral Status Appt Ricci Carrion M.D. Created [address] [place] [address] Drive [address] [place] [address] [phone]
[2024-10-13 11:14] VITALS: BP 176/86; PULSE 74; O2SAT 99; BMI 27.1
--- NOTE | 2024-10-13 11:14 | MHC.OFFVIS ---
Vital Signs 10/13/24 11:14 Height 5 ft Weight 138 lb 14.259 oz BMI 27.1 BP 176/86 H Blood Pressure Location Rt brachial Position Sitting Pulse 74 Pulse Source Pulse Oximeter Pulse Oximetry (%) 99 Oxygen Delivery Method Room Air Intake Visit Reasons: 3 months f/u Intake Note: ESTABLISHED PATIENT Alicia presents in office today for a scheduled 3 mos FUV. Meds and Allergies reviewed? Y No recent or relevant surgeries? None Any significant concerns or new changes? Pt states increase in pantoprazole has been helpful Pharmacy verified? [facility] Image Engine Design Regulatory Consultant Required: No Allergies aspirin [Aspirin] Allergy (Severe, Verified 10/13/24 11:15) MOUTH SWELLING hydrochlorothiazide [Hydrochlorothiazide] Allergy (Intermediate, Verified 10/13/24 11:15) DROP IN BLOOD PRESSURE Penicillins [PENICILLINS] Allergy (Intermediate, Verified 10/13/24 11:15) ITCHING caffeine [Caffeine] Allergy (Mild, Verified 10/13/24 11:15) NERVOUSNESS lisinopril [Lisinopril] Allergy (Mild, Verified 10/13/24 11:15) CHANGES IN BLOOD PRESSURE ranitidine [RANITIDINE] Allergy (Mild, Verified 10/13/24 11:15) HEADACHE amlodipine [AMLODIPINE] Allergy (Unknown, Verified 10/13/24 11:15) UNKNOWN amoxicillin Allergy (Unknown, Verified 10/13/24 11:15) itching, severe with rash diclofenac Allergy (Unknown, Verified 10/13/24 11:15) Unknown escitalopram Allergy (Unknown, Verified 10/13/24 11:15) abdominal discomfort, drowsiness esomeprazole [Nexium] Allergy (Unknown, Verified 10/13/24 11:15) Unknown isosorbide [ISOSORBIDE] Allergy (Unknown, Verified 10/13/24 11:15) UNKNOWN lidocaine [Lidoderm] Allergy (Unknown, Verified 10/13/24 11:15) weakness mirtazapine Allergy (Unknown, Verified 10/13/24 11:15) Unknown nystatin Allergy (Unknown, Verified 10/13/24 11:15) rash sertraline [SERTRALINE] Allergy (Unknown, Verified 10/13/24 11:15) UNKNOWN dexlansoprazole [From DEXILANT] Adverse Reaction (Severe, Verified 10/13/24 11:15) AGITATION hydrocortisone [From Cortizone-10] Adverse Reaction (Mild, Verified 10/13/24 11:15) RAISES BLOOD SUGAR topiramate [From TOPAMAX] Adverse Reaction (Unknown, Verified 10/13/24 11:15) AGITATION From PLAVIX Allergy (Unknown, Uncoded 07/29/24 13:47) PT UNSURE OF REACTION Medical tape Allergy (Unknown, Uncoded 07/29/24 13:47) Rash HPI HPI 3 months f/u: Details: GERD (gastroesophageal reflux disease) Chronic idiopathic constipation Plan Decrease pantoprazole 20 mg daily. Her symptoms of acid reflux are suppressed. Discussed with patient avoiding dietary triggers and late night snacking. Staying upright for minimum 3 hours after meals discussed with patient. Patient will take senna 1-2 tablets daily, hold if diarrhea. Will add fiber. Increase fiber intake as well. Patient will follow-up in the office in months, sooner on as needed basis. She is agreeable to this plan and verbalizes understanding of instructions. She was given the opportunity to ask questions and all questions answered. ? Thank you for allowing me to participate in her care Medications New methylcellulose (laxative) (Citrucel) take it with full glass of water 500 mg PO DAILY 30 tabs 2RF K59.00 pantoprazole 20 mg PO DAILY 90 tabs 1RF Discontinued pantoprazole Discontinued Reason: Doctor's Order 40 mg PO DAILY 90 tabs 3RF K21.9 TODAY'S VISIT: Patient is here today for follow-up. After last visit patient called and reported that her pantoprazole was not working. We did decrease the dose to 20 mg daily. Patient started taking 40 mg after discussing at over the phone and since then patient reports that her symptoms of acid reflux have been suppressed. Patient is denying any dyspepsia, dysphagia or odynophagia. Denies melena, hematochezia. Reports that she is moving her bowels well without any issues. Patient was on Trulicity and just few months ago started on Ozempic. Patient reports weight loss over the last year of over 20 lb. She is concerned about it, however she is taking GLP 1 and most likely this is the reason for her weight loss. Patient denies any abdominal pain or discomfort. Denies any GI concerning symptoms today [facility] Medical History Type 2 diabetes mellitus with chronic kidney disease Chronic kidney disease, stage 4 (severe) Type 2 diabetes mellitus Obesity Skin abrasion HARRIET (renal artery stenosis) Left bundle branch block Nonischemic cardiomyopathy Urinary incontinence GERD (gastroesophageal reflux disease) COVID-19 Pneumonia due to COVID-19 virus Vertigo Obesity (BMI 30-39.9) Depression Anxiety Stasis edema of both lower extremities Cardiomyopathy Pure hypercholesterolemia Hyperkalemia Renal artery stenosis Benign essential hypertension Conjunctival hemorrhage of right eye Surgical History Hx of colonoscopy Hx of myomectomy History of cataract surgery History of lumpectomy of left breast History of cholecystectomy Family History Father CVD (cardiovascular disease) Myocardial infarction Mother Myocardial infarction CVD (cardiovascular disease) Brother Myocardial infarction Family/Other FH: prostate cancer Social History Household Members: None Housing: Apartment Do you presently have visiting nurse or other home services: No Alcohol intake: never Patient Tobacco Use Status: Former Tobacco user Tobacco use type: Cigarette e-Cigarette/Vaping Use: Never Used Second Hand Smoke Exposure: No Advance Directives Date on File: 08/06/21 service: No Current occupational status: disabled Cognitive needs: No Hearing needs: No Vision needs: Yes Review of Systems Const Denies weight gain and Reports weight loss ENT Reports no additional complaints, Denies dysphagia and Denies odynophagia Card Reports no additional complaints Resp Reports no additional complaints GI Denies abdominal pain, Denies belching, Denies melena, Denies bloating, Denies change in bowel habits, Denies dysphagia, Denies excessive flatus, Denies dyspepsia, Denies heartburn, Denies diarrhea, Denies loose stools, Denies nausea, Denies odynophagia and Denies vomiting Musc Reports no additional complaints Neuro Reports no additional complaints Psych Reports no additional complaints Endo Reports no additional complaints Physical Exam Vital Signs: Last Vital Signs Pulse 74 10/13/24 11:14 BP 176/86 H 10/13/24 11:14 Pulse Ox 99 10/13/24 11:14 Oxygen Delivery Method Room Air 10/13/24 11:14 BMI result Body Mass Index 27.1 Const General: healthy appearing, no acute distress and well developed Nutritional Appearance: obese Orientation/consciousness: patient oriented x3 Resp Effort & Inspection: normal respiratory effort, able to speak in complete sentences, no tracheal deviation and symmetric chest movement Auscultation: clear to auscultation bilaterally Cardio Rate: regular rate GI Inspection: Yes normal to inspection, No distended and Yes obesity Palpation (GI): Soft to palpation, not firm, nontender and No hepatosplenomegaly present Auscultation: normal bowel sounds General: Yes no CVA tenderness Back/Spine/Pelvis Back: no CVA tenderness Skin General skin exam: elasticity normal, turgor normal and dry skin Neuro General: patient oriented x3 Psych Appearance: grossly normal Mental Status: mental status grossly normal Assessment & Plan Assessment & Plan (1) GERD (gastroesophageal reflux disease): Code(s): K21.9 - Gastro-esophageal reflux disease without esophagitis Category: Medical Qualifiers: Esophagitis presence: esophagitis presence not specified Qualified Code(s): K21.9 - Gastro-esophageal reflux disease without esophagitis (2) Chronic idiopathic constipation: Code(s): K59.04 - Chronic idiopathic constipation (3) Abnormal intentional weight loss: Code(s): R63.4 - Abnormal weight loss (4) Weight loss, unintentional: Code(s): R63.4 - Abnormal weight loss Plan Patient reports weight loss over last year, however she was on Trulicity and now on Ozempic most likely related to that, however patient will be referred to surgical pathologist. Continue pantoprazole daily. Avoid dietary triggers and late night snacking. Staying upright for minimum 3 hours after meals discussed with patient. Continue fiber supplement and senna. Increase fluid intake and activity to promote better bowel motility. Patient will follow-up in our office in 6 months, sooner on as needed basis. She is agreeable to this plan and verbalizes understanding of instructions. She was given the opportunity to ask questions and all questions answered. Thank you for allowing me to participate in her care Orders: Referrals Rn Cardiac Nutrition Referral R63.4 - Abnormal weight loss Medications: Refilled sennosides 17.2 mg (2 x 8.6 mg) PO DAILY 180 tabs 4RF constipation Coding Level of Care Code Est Pt Level 4 (10496) Complex EM visit Add On G2211 Diagnoses Gastroesophageal reflux disease, unspecified whether esophagitis present K21.9 Esophagitis presence: esophagitis presence not specified Chronic idiopathic constipation K59.04 Abnormal intentional weight loss R63.4 Weight loss, unintentional R63.4 Time Spent (min) 35 Comment 20 minutes spent with patient and additional 15 minutes spent reviewing her records
== END 2024-10-13 11:55 | disposition home or self-care (01) ==
PROVIDERS: PCP Internal Medicine; Visit Provider Nurse Practitioner Family
DX: K21.9 Gastro-esophageal reflux disease without esophagitis (principal); K59.04 Chronic idiopathic constipation; R63.4 Abnormal weight loss
CPT/HCPCS: 99214; G2211

== ENCOUNTER → 2024-10-13 11:11 | Outpatient (BNVA) | payer OTHER, SELFPAY | PROVIDERS: PCP Internal Medicine; Visit Provider Nurse Practitioner Family | DX: K21.9 Gastro-esophageal reflux disease without esophagitis (principal); K59.04 Chronic idiopathic constipation; R63.4 Abnormal weight loss | CPT/HCPCS: 99212 ==

== ENCOUNTER 2024-10-28 09:25 | Outpatient (REF) | payer OTHER, SELFPAY ==
--- OUTSIDE RECORDS SUMMARY | 2024-10-28 09:40 | XMS_ITS | Continuity of Care Document ---
Author Organization [facility] [address] [place] [address] Phone [phone] Care Team Providers Care Wireless Sales Expert Name Role Phone Boaz Astorga Care Team Information Packager Head [phone] Problems Active Problems Provider Date Anxiety Ricci [...] 02/08/2024 Clotrimazole/Betameth asone Dipropionate1-0.05% Cream Aplique Al [place] Afectada Topically Dos Veces Al D A [place] For Bola [place], Boaz Rosuvastatin [id number] Tablets [place] Sejal Tableta Todos [place] D as [place], Boaz Alprazolam0.5mg Tablets [place] Sejal Tableta Dos Veces Al D A [place] Unknown Pantoprazole [id number] Tablets DR [place] Sejal Tableta Todos [place] D as [place], Boaz Buspirone HCL7.5mg Tablets [place] Sejal Tableta Todos [place] D as Unknown Onetouch Delica Plus Lancets Extra Fine 33GPlus 33G Misc Use Four Times Daily [place], Boaz [id number] Tablets [place] Sejal Tableta Todos [place] D as Al Acostarse [place], [place] Onetouch UltraStrips Use as Directed To Test Blood Sugar Four Times Daily [place], Boaz Carvedilol6.25mg Tablets [place] Sejal Tableta Dos Veces Al D A [place], [place] Vital Signs Date Vital Result Comment 05/09/2024 [...] Referral Status Appt Ricci Carrion M.D. Created [address] [place] [address] Drive [address] [place] [address] [phone]
[2024-10-28 10:45] LABS: Basophils Percent Auto 0.4 % (0-2); Eosinophils Absolute Auto 0.1 X10*3/uL (0.0-0.4); Eosinophils Percent Auto 1.1 % (0-4); Hematocrit 38.4 % (37.0-47.0); Hemoglobin 12.4 g/dl (12.0-16.0); Imm Gran Abs Auto 0.01 X10*3/uL (0.00-0.03); Imm Gran Pct Auto 0.2 % (0.0-0.4); Lymphocytes Absolute Auto 1.1 X10*3/uL (1.2-4.9); Lymphocytes Percent Auto 20.5 % (20-40); MANUAL DIFF FLAG NO; Mean Corpuscular HGB Conc 32.3 g/dl (31.0-35.0); Mean Corpuscular Hemoglobin 30.2 pg (27.0-33.0); Mean Corpuscular Volume 93.7 fL (80.0-98.0); Mean Platelet Volume 12.1 fL (9.4-12.3); Monocytes Absolute Auto 0.6 X10*3/uL (0.1-1.2); Monocytes Percent Auto 11.2 % (2-11); Neutrophils Absolute Auto 3.6 x10*3/uL (2.0-8.3); Neutrophils Percent Auto 66.6 % (45-73); Platelet Count 220 X10*3/uL (160-400); Red Cell Distribution Width 14.2 % (11.0-16.0); White Blood Count 5.4 X10*3/uL (4.8-10.8)
[2024-10-28 10:53] LABS: Estimated Average Glucose 180 mg/dL; Hemoglobin A1c % 7.9 % (<6.0); Total Hemoglobin (HGBA1C) 3218.4001 umol/L
[2024-10-28 11:01] LABS: Appearance Urine Clear; Color Urine Yellow; Glucose Urine UA Negative (Negative); Leukocyte Esterase Urine Negative (Negative); Nitrite Urine Negative (Negative); PH 6.5 (5.0-9.0); UMIC TRIGGER UACC YES; Urine Blood Negative (Negative); Urine Ketones Negative (Negative); Urine Protein 30 (1+) mg/dL (Neg-Trace)
[2024-10-28 11:05] LABS: Bacteria Urine None Seen (None Seen); RBC Urine 0-2 /HPF (0-2); Squamous Epithelial Cell Urine 0-2 /HPF (0-2); WBC Urine 0-5 /HPF (0-5)
[2024-10-28 11:41] LABS: Alanine Aminotransferase 29 U/L (0-31); Albumin Level 4.3 g/dL (3.5-5.0); Alkaline Phosphatase 102 U/L (39-117); Anion Gap 14 (12-20); Aspartate Amino Transferase 35 U/L (5-31); Blood Urea Nitrogen 37 mg/dL (9-16); Carbon Dioxide 23 mmol/L (22-29); Chloride 106 mmol/L (96-108); Cholesterol 127 mg/dL (<200); Estimated Glomerular Filt Rate 16; Glucose Fasting 175 mg/dL (60-99); HDL Cholesterol 47 mg/dL (>40); LDL Cholesterol Calculated 68 mg/dL (<100); Potassium 4.5 mmol/L (3.3-5.1); Sodium 138 mmol/L (135-145); Total Protein 7.8 g/dL (6.5-8.0); Triglycerides 64 mg/dL (<150)
[2024-10-28 11:51] LABS: Folate 16.1 ng/mL (> or = 4.0); Vitamin B12 720 pg/mL (200-900)
[2024-10-28 11:58] LABS: TSH reflex Free T4 2.97 uIU/mL (0.32-4.0); Vitamin D 25-OH Total 45.4 ng/mL (>30)
== END 2024-10-28 09:26 | disposition home or self-care (01) ==
LOC: HO.LAB 09:25
PROVIDERS: Absent Provider Internal Medicine; PCP Internal Medicine; Visit Provider Internal Medicine Nephrology
DX: D64.9 Anemia, unspecified (principal); E11.9 Type 2 diabetes mellitus without complications; E78.00 Pure hypercholesterolemia, unspecified; E53.8 Deficiency of other specified B group vitamins; E55.9 Vitamin D deficiency, unspecified; I10 Essential (primary) hypertension
CPT/HCPCS: 36415; 80053; 80061; 81001; 82306; 82607; 82746; 83036; 84443; 85025

== ENCOUNTER 2024-10-29 10:05 | Outpatient (AMB) | payer OTHER, SELFPAY ==
--- NOTE | 2024-10-29 10:14 | HO.NEPHOV ---
Vital Signs 10/29/24 10:17 Height 5 ft Weight 136 lb BMI 26.6 BP 122/62 Blood Pressure Location Rt brachial Position Sitting Pulse 79 Pulse Source Pulse Oximeter Pulse Oximetry (%) 100 Oxygen Delivery Method Room Air Intake Visit Reasons: CKD Machining Engineer Required: No Accompanied by: Self / Same As Patient Allergies aspirin [Aspirin] Allergy (Severe, Verified 10/29/24 10:17) MOUTH SWELLING hydrochlorothiazide [Hydrochlorothiazide] Allergy (Intermediate, Verified 10/29/24 10:17) DROP IN BLOOD PRESSURE Penicillins [PENICILLINS] Allergy (Intermediate, Verified 10/29/24 10:17) ITCHING caffeine [Caffeine] Allergy (Mild, Verified 10/29/24 10:17) NERVOUSNESS lisinopril [Lisinopril] Allergy (Mild, Verified 10/29/24 10:17) CHANGES IN BLOOD PRESSURE ranitidine [RANITIDINE] Allergy (Mild, Verified 10/29/24 10:17) HEADACHE amlodipine [AMLODIPINE] Allergy (Unknown, Verified 10/29/24 10:17) UNKNOWN amoxicillin Allergy (Unknown, Verified 10/29/24 10:17) itching, severe with rash diclofenac Allergy (Unknown, Verified 10/29/24 10:17) Unknown escitalopram Allergy (Unknown, Verified 10/29/24 10:17) abdominal discomfort, drowsiness esomeprazole [Nexium] Allergy (Unknown, Verified 10/29/24 10:17) Unknown isosorbide [ISOSORBIDE] Allergy (Unknown, Verified 10/29/24 10:17) UNKNOWN lidocaine [Lidoderm] Allergy (Unknown, Verified 10/29/24 10:17) weakness mirtazapine Allergy (Unknown, Verified 10/29/24 10:17) Unknown nystatin Allergy (Unknown, Verified 10/29/24 10:17) rash sertraline [SERTRALINE] Allergy (Unknown, Verified 10/29/24 10:17) UNKNOWN dexlansoprazole [From DEXILANT] Adverse Reaction (Severe, Verified 10/29/24 10:17) AGITATION hydrocortisone [From Cortizone-10] Adverse Reaction (Mild, Verified 10/29/24 10:17) RAISES BLOOD SUGAR topiramate [From TOPAMAX] Adverse Reaction (Unknown, Verified 10/29/24 10:17) AGITATION From PLAVIX Allergy (Unknown, Uncoded 07/29/24 13:47) PT UNSURE OF REACTION Medical tape Allergy (Unknown, Uncoded 07/29/24 13:47) Rash HPI Comments Details: Alicia was seen in follow for her advanced CKD. She is known to have DM for a long time and is under better control now. She also has hypertension. She does not take NSAID's regularly. She denies any nausea, vomiting, diarrhea, SOB, edema, PND, orthopnea, hematuria, hearing deficits. She claims to be compliant with medications. She is not on SGLT2i. She has no sinusitis, epistaxis, photosensitivity, bone pain, sore throat , hemoptysis, skin lesions or recent antibiotic intake. Her renal functions have been getting worse lately but stable . She denied any active complaints at the time of this office visit [facility] Medical History Type 2 diabetes mellitus with chronic kidney disease Chronic kidney disease, stage 4 (severe) Type 2 diabetes mellitus Obesity Skin abrasion HARRIET (renal artery stenosis) Left bundle branch block Nonischemic cardiomyopathy Urinary incontinence GERD (gastroesophageal reflux disease) COVID-19 Pneumonia due to COVID-19 virus Vertigo Obesity (BMI 30-39.9) Depression Anxiety Stasis edema of both lower extremities Cardiomyopathy Pure hypercholesterolemia Hyperkalemia Renal artery stenosis Benign essential hypertension Conjunctival hemorrhage of right eye Surgical History Hx of colonoscopy Hx of myomectomy History of cataract surgery History of lumpectomy of left breast History of cholecystectomy Family History Father CVD (cardiovascular disease) Myocardial infarction Mother Myocardial infarction CVD (cardiovascular disease) Brother Myocardial infarction Family/Other FH: prostate cancer Social History Household Members: None Housing: Apartment Do you presently have visiting nurse or other home services: No Alcohol intake: never Patient Tobacco Use Status: Former Tobacco user Tobacco use type: Cigarette e-Cigarette/Vaping Use: Never Used Second Hand Smoke Exposure: No Advance Directives Date on File: 08/06/21 service: No Current occupational status: disabled Cognitive needs: No Hearing needs: No Vision needs: Yes Review of Systems Const All systems reviewed & are unremarkable except as noted in HPI and below Physical Exam Vital Signs: Last Vital Signs Pulse 79 10/29/24 10:17 BP 122/62 10/29/24 10:17 Pulse Ox 100 10/29/24 10:17 Oxygen Delivery Method Room Air 10/29/24 10:17 BMI result Body Mass Index 26.6 Const General: comfortable and no acute distress Orientation/consciousness: patient oriented x3 HEENT Head: Yes normocephalic Mouth: Normal oral and palatal mucosa present Eyes EOM: EOMs intact bilaterally Neck Neck: Yes supple Resp Auscultation: clear to auscultation bilaterally Cardio Jugular venous distension: no JVD Rate: regular rate GI Palpation (GI): Soft to palpation Auscultation: normal bowel sounds General: Yes no CVA tenderness Back/Spine/Pelvis Back: no CVA tenderness Skin General skin exam: no rashes or lesions noted Neuro General: patient oriented x3 and moves all extremities Extrem General: Yes no pedal edema Results Reviewed Nephrology Results: Hgb 12.4 g/dl (12.0-16.0) 10/28/24 WBC 5.4 X10*3/uL (4.8-10.8) 10/28/24 Plt Count 220 X10*3/uL (160-400) 10/28/24 Sodium 138 mmol/L (135-145) 10/28/24 Potassium 4.5 mmol/L (3.3-5.1) 10/28/24 Chloride 106 mmol/L (96-108) 10/28/24 Carbon Dioxide 23 mmol/L (22-29) 10/28/24 BUN 37 mg/dL (9-16) H 10/28/24 Creatinine 2.84 mg/dL (0.5-1.4) H 10/28/24 Calcium 10.0 mg/dL (8.4-10.2) 10/28/24 PTH Intact 146.5 pg/mL (8.7-77.1) H 08/07/24 Urine Protein 30 (1+) mg/dL (Neg-Trace) H 10/28/24 Urine Creatinine 201.66 mg/dL 07/25/24 Assessment & Plan Assessment & Plan (1) Type 2 diabetes mellitus with chronic kidney disease: Code(s): E11.22 - Type 2 diabetes mellitus with diabetic chronic kidney disease Category: Medical Qualifiers: 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 terminal press operator insulin use: without terminal press operator use Chronic kidney disease stage: stage 4 (severe) Qualified Code(s): E11.22 - Type 2 diabetes mellitus with diabetic chronic kidney disease; N18.4 - Chronic kidney disease, stage 4 (severe) (2) Hypertension: Code(s): I10 - Essential (primary) hypertension Category: Medical Qualifiers: Hypertension type: renovascular hypertension Qualified Code(s): I15.0 - Renovascular hypertension (3) Secondary hyperparathyroidism (of renal origin): Code(s): N25.81 - Secondary hyperparathyroidism of renal origin Category: Medical (4) Chronic kidney disease, stage 4 (severe): Code(s): N18.4 - Chronic kidney disease, stage 4 (severe) Category: Medical Plan BP at goal at home. 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 Based on published guidelines in J Am Abdoulaye Radiol 2013; 10(10):789-794 and J Vasc Surg. 2018; 67:2-77, the recommendation for an abdominal aorta with diameter 2.6-2.9 cm is follow-up every 5 years if the aorta that meets the criteria for AAA (>1.5 x proximal normal segment; no f/u if < 1.5 x proximal normal segment; no f/u for aorta < 2.6 cm) 24 hour urine for cr cl- 15 mls/mt- stable Aware about renal replacement if her renal func declines Follow up labs ordered; F/U in 2 months Coding Level of Care Code Est Pt Level 4 (25337) Diagnoses Type 2 diabetes mellitus with stage 4 chronic kidney disease, without long-term current use of insulin E11.22; N18.4 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 terminal press operator insulin use: without fdc use Chronic kidney disease stage: stage 4 (severe) Renovascular hypertension I15.0 Hypertension type: renovascular hypertension Secondary hyperparathyroidism (of renal origin) N25.81 Chronic kidney disease, stage 4 (severe) N18.4
[2024-10-29 10:17] VITALS: BP 122/62; PULSE 79; O2SAT 100; BMI 26.6
== END 2024-10-29 10:43 | disposition home or self-care (01) ==
PROVIDERS: PCP Internal Medicine; Visit Provider Internal Medicine Nephrology
DX: E11.22 Type 2 diabetes mellitus with diabetic chronic kidney disease (principal); N18.4 Chronic kidney disease, stage 4 (severe); I15.0 Renovascular hypertension; N25.81 Secondary hyperparathyroidism of renal origin
CPT/HCPCS: 99214

== ENCOUNTER → 2024-10-29 10:05 | Outpatient (BNVA) | payer OTHER, SELFPAY | PROVIDERS: PCP Internal Medicine; Visit Provider Internal Medicine Nephrology | DX: E11.22 Type 2 diabetes mellitus with diabetic chronic kidney disease (principal); N18.4 Chronic kidney disease, stage 4 (severe); N25.81 Secondary hyperparathyroidism of renal origin; I15.0 Renovascular hypertension | CPT/HCPCS: 99212 ==

== ENCOUNTER 2024-11-17 12:15 | Outpatient (AMB) | payer OTHER, SELFPAY ==
--- NOTE | 2024-11-17 12:37 | MHC.AMNUTRGE ---
VS Expanded 11/17/24 12:40 11/19/24 12:54 Height 5 ft 5 ft Weight 133 lb 9.602 oz 134 lb BMI 26.1 26.2 Intake Visit Reasons: Abnormal weight loss Allergies aspirin [Aspirin] Allergy (Severe, Verified 10/29/24 10:17) MOUTH SWELLING hydrochlorothiazide [Hydrochlorothiazide] Allergy (Intermediate, Verified 10/29/24 10:17) DROP IN BLOOD PRESSURE Penicillins [PENICILLINS] Allergy (Intermediate, Verified 10/29/24 10:17) ITCHING caffeine [Caffeine] Allergy (Mild, Verified 10/29/24 10:17) NERVOUSNESS lisinopril [Lisinopril] Allergy (Mild, Verified 10/29/24 10:17) CHANGES IN BLOOD PRESSURE ranitidine [RANITIDINE] Allergy (Mild, Verified 10/29/24 10:17) HEADACHE amlodipine [AMLODIPINE] Allergy (Unknown, Verified 10/29/24 10:17) UNKNOWN amoxicillin Allergy (Unknown, Verified 10/29/24 10:17) itching, severe with rash diclofenac Allergy (Unknown, Verified 10/29/24 10:17) Unknown escitalopram Allergy (Unknown, Verified 10/29/24 10:17) abdominal discomfort, drowsiness esomeprazole [Nexium] Allergy (Unknown, Verified 10/29/24 10:17) Unknown isosorbide [ISOSORBIDE] Allergy (Unknown, Verified 10/29/24 10:17) UNKNOWN lidocaine [Lidoderm] Allergy (Unknown, Verified 10/29/24 10:17) weakness mirtazapine Allergy (Unknown, Verified 10/29/24 10:17) Unknown nystatin Allergy (Unknown, Verified 10/29/24 10:17) rash sertraline [SERTRALINE] Allergy (Unknown, Verified 10/29/24 10:17) UNKNOWN dexlansoprazole [From DEXILANT] Adverse Reaction (Severe, Verified 10/29/24 10:17) AGITATION hydrocortisone [From Cortizone-10] Adverse Reaction (Mild, Verified 10/29/24 10:17) RAISES BLOOD SUGAR topiramate [From TOPAMAX] Adverse Reaction (Unknown, Verified 10/29/24 10:17) AGITATION From PLAVIX Allergy (Unknown, Uncoded 07/29/24 13:47) PT UNSURE OF REACTION Medical tape Allergy (Unknown, Uncoded 07/29/24 13:47) Rash Nutrition Presentation Details: Pt presents for MNT for recent weight loss Pt reports doing well, no concerns expressed Pt reports having assistance with meal preparation and food shopping denies diarrhea/vomiting/constipation Pt states she has noticed decreased appetite since starting ozempic 0.5mg a couple of months ago and this appears to correlate with weight loss (was 138 lb in Jul 2024 and today at 133 lbs (10/2024) Pt didnot bring bg record to this appointment,reports sometimes having low blood sugar at night therefore has cookies to prevent lows Pt reports having 3 meals/day and 1-2 snack /day typical meal B: oatmeal with milk and 2 slices of oranges water or tea or coffee w milk and diet sugar L: rice, egg, white beans , water Dinner: root vegetables, codfish or tuna (soup chicken with veggies and rice and potatoes) snack on plain cereal or oranges, cookies physical activity: walks/stairs daily life activities BS Monitoring Most Recent Diabetes Results: Cholesterol 127 mg/dL (<200) 10/28/24 HDL Cholesterol 47 mg/dL (>40) 10/28/24 Triglycerides 64 mg/dL (<150) 10/28/24 Creatinine 2.84 mg/dL (0.5-1.4) H 10/28/24 Blood Urea Nitrogen 37 mg/dL (9-16) H 10/28/24 Sodium 138 mmol/L (135-145) 10/28/24 Potassium 4.5 mmol/L (3.3-5.1) 10/28/24 Chloride 106 mmol/L (96-108) 10/28/24 Carbon Dioxide 23 mmol/L (22-29) 10/28/24 Calcium 10.0 mg/dL (8.4-10.2) 10/28/24 AST 35 U/L (5-31) H 10/28/24 ALT 29 U/L (0-31) 10/28/24 Total Protein 7.8 g/dL (6.5-8.0) 10/28/24 Albumin 4.3 g/dL (3.5-5.0) 10/28/24 LWI-Zjuqsvs-El.Jeor Equation Height: 5 ft Weight: 134 lb Resting Metabolic Rate: 1000.19 Calculated Activity Level: Mild Activity Calories Needed to Maintain Weight: 1375.26 [facility] Medical History Type 2 diabetes mellitus with chronic kidney disease Chronic kidney disease, stage 4 (severe) Type 2 diabetes mellitus Obesity Skin abrasion HARRIET (renal artery stenosis) Left bundle branch block Nonischemic cardiomyopathy Urinary incontinence GERD (gastroesophageal reflux disease) COVID-19 Pneumonia due to COVID-19 virus Vertigo Obesity (BMI 30-39.9) Depression Anxiety Stasis edema of both lower extremities Cardiomyopathy Pure hypercholesterolemia Hyperkalemia Renal artery stenosis Benign essential hypertension Conjunctival hemorrhage of right eye Surgical History Hx of colonoscopy Hx of myomectomy History of cataract surgery History of lumpectomy of left breast History of cholecystectomy Family History Father CVD (cardiovascular disease) Myocardial infarction Mother Myocardial infarction CVD (cardiovascular disease) Brother Myocardial infarction Family/Other FH: prostate cancer Social History Household Members: None Housing: Apartment Do you presently have visiting nurse or other home services: No Alcohol intake: never Patient Tobacco Use Status: Former Tobacco user Tobacco use type: Cigarette e-Cigarette/Vaping Use: Never Used Second Hand Smoke Exposure: No Advance Directives Date on File: 08/06/21 service: No Current occupational status: disabled Cognitive needs: No Hearing needs: No Vision needs: Yes Assessment & Plan Assessment & Plan (1) Type 2 diabetes mellitus with chronic kidney disease: Code(s): E11.22 - Type 2 diabetes mellitus with diabetic chronic kidney disease Category: Medical Qualifiers: 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 extermination supervisor insulin use: without chcf use Chronic kidney disease stage: stage 4 (severe) Qualified Code(s): E11.22 - Type 2 diabetes mellitus with diabetic chronic kidney disease; N18.4 - Chronic kidney disease, stage 4 (severe) Plan: Wt: 61 Kg ( 11/15 ) Est kcal needs as per MSJ: 1400 (40% carb, 30% protein/fat) Est fluid needs as per 25-30 ml/d: 1800 Est prot per day as per 1 g/kg bw: 61 Recommend fiber intake : 8-10 g per day and gradually increase to 25-28 g per day for women and 35-38 g for men or as tolerated Recommend sodium intake per day : less than 2000 mg Educated patient on: ( R = reviewed V = verbalizes understanding N/R = needs review N/A = not applicable Food sources of carbohydrate, adequate serving sizes and its role in various health conditions: R Differences between complex carbohydrates a simple carbohydrates, role of fiber in diet: R Lean protein sources of foods: R Differences between types of fats and role in diet (mono on saturated fat fatty acids, saturated fatty acids, trans fats): R V N/R Food sources of sodium in salt and healthy modifications for heart health in kidney health: R V R/V Vitamins and minerals: R V N/R Healthy plate method concept: R V N/R Physical activity: Benefits a precaution: R V N/R Hypoglycemia protocol (rule of 15): R V N/R Dietary prevention of Hyperglycemia: R V R/V Patient Instructions: Have yogurt with cheerios as bedtime snack Keep physically active as able Coding Level of Care Code Nutr Indiv Intake (24516) Diagnoses Type 2 diabetes mellitus with stage 4 chronic kidney disease, without long-term current use of insulin E11.22; N18.4 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 extermination supervisor insulin use: without extermination supervisor use Chronic kidney disease stage: stage 4 (severe) Time Spent (min) 30
[2024-11-17 12:40] VITALS: BMI 26.1
--- OUTSIDE RECORDS SUMMARY | 2024-11-17 17:08 | XMS_ITS ---
Author Organization [facility] Address [address] [place] [address] Care Team Providers Care Streetcar Operator Name Role Phone Martell Astorga MDneth Primary Care Provider Yarely Medina Unavailable [phone] REASON FOR VISIT No Show fee Encounters Encounter Location Date Provider Diagnosis [facility] [address] [place] [address] 07/02/2024 Yarely Gibbs Plan Of Treatment Next Appt Details Provider Name:Yarely puckett, 12/02/2024 02:00:00 PM, [address] [place], [address], Progress Notes * Alicia DUONGDOB:1945 (78 yo F)Acc No.[id number]:07/02/2024 Patient:?Alicia Duong :1945???Age:78 Y???Sex:Female Address:[address], [place], [address] * true * Date:? Generated for Printi keven/Suzy/eTransmitting on:?11/17/2024 05:08 PM EST
--- OUTSIDE RECORDS SUMMARY | 2024-11-17 17:08 | XMS_ITS | Clinical Summary ---
Author Organization [facility] Address [address] [place] [address] Phone Care Team Providers Care Cardroom Worker Name Role Phone Boaz Astorga MD Primary Care Provider [phone] Allergies Active Allergy Reactions Criticality Noted Date Comments Amlodipine Other (see comments) 01/05/2021 Amoxicillin Other (see comments) 01/05/2021 Aspirin Other (see comments) 01/05/2021 Bucalfaspkgluccouchparsuvaurju Other (see comments) 10/11/2021 Caffeine Other (see comments) 01/05/2021 Cortisone Other (see comments) 01/05/2021 Dexlansoprazole Other (see comments) 01/05/2021 Diclofenac Other (see comments) 01/05/2021 Escitalopram Other (see comments) 01/05/2021 Esomeprazole Other (see comments) 01/05/2021 Hydrochlorothiazide Other (see comments) 2020 Isosorbide Nitrate Other (see comments) 021 Lisinopril Other (see comments) 01/05/2021 Mirtazapine Other (see comments) 10/11/2021 Nystatin Other (see comments) 10/11/2021 Other Other (see comments) 01/05/2021 Penicillins Other (see comments) 01/05/2021 Ranitidine Other (see comments) 01/05/2021 Sertraline Other (see comments) 01/05/2021 Sulfamethoxazole-Trimethoprim Other (see comments) 08/01/2022 Topiramate Other (see comments) 01/05/2021 Medications ALPRAZolam (XANAX) 0.5 MG tablet Take 1 tablet by mouth 2 (two) times a day Active busPIRone (BUSPAR) 7.5 MG tablet Take 1 tablet by mouth 1 (one) time each day Active carvedilol (COREG) 6.25 MG tablet Take 1 tablet by mouth 2 (two) times a day Active metFORMIN (GLUCOPHAGE) 500 MG tablet Take 1 tablet by mouth 1 (one) time each day with breakfast Active pantoprazole (PROTONIX) 40 MG EC tablet Take 1 tablet by mouth 1 (one) time each day Active polyethylene glycol (GLYCOLAX) 17 GM/SCOOP powder Take 1 packet by mouth every morning Active senna (SENOKOT) 8.6 MG tablet Take 2 tablets by mouth at bed time Active rosuvastatin (CRESTOR) 40 MG tablet Take 40 mg by mouth 1 (one) time each day Active spironolactone (ALDACTONE) 25 MG tablet Take 1 tablet by mouth at bed time 1 Active Trulicity 1.5 MG/0.5ML solution pen-injector INJECT 1.5 MG (0.5 ML) SUBCUTANEOUSLY EVERY WEEK FOR 4 WEEKS 3 Active Multiple Vitamin (multivitamin) tablet Take 1 tablet by mouth 1 (one) time each day Active Active Problems Problem Noted Date Diagnosed Date Type 2 diabetes mellitus with peripheral angiopa thy 01/18/2022 Hypertension 2021 Stage 3a chronic kidney disease 07/01/2021 Edema 01/05/2021 Essential hypertension 01/05/2021 Hyperkalemia 01/05/2021 Renal artery stenosis 01/05/2021 Immunizations Name Administration Dates Next Due Influenza (IM) Preservative Free 08/22/2021 Pfizer SARS-COV-2 09/08/2021 Family History Medical History Relation Comments Diabetes Father Heart disease Mother Heart disease Sibling Relation Status Comments Father Mother Sibling Social History Tobacco Use Types Packs/Day Years Used Date Smoking Tobacco: Never Smokeless Tobacco: Never Tobacco Cessation:Counseling Given: Not Answered Alcohol Use Standard Drinks/Week Comments No 0 (1 standard drink = 0.6 oz pur e alcohol) Comments Unknown Sex and Gender Information Value Date Recorded Sex Assigned at Not on file Legal Sex Female 5:12 PM EST Gender Identity Not on file Sexual Orientation Not on file Last Filed Vital Signs Vital Sign Reading Time Taken Comments Blood Pressure 136/86 05/16/2023 1:59 PM EDT Pulse 79 05/16/2023 1:59 PM EDT Temperature - - Respiratory Rate - - Oxygen Saturation 98% 04/11/2023 1:03 PM EDT Inhaled Oxygen Concentration - - Weight 76.3 kg (168 lb 3.2 oz) 05/16/2023 1:59 P M EDT Height 129.5 cm (4' 3 ) 04/11/2023 1:03 PM EDT Body Mass Index 45.47 04/11/2023 1:03 PM EDT Plan of Treatment Health Maintenance Due Date Last Done Comments Pneumococcal Vaccine: 65+ Ye ars (1 of 2 - PCV) 1951 Diabetes: Hemoglobin A1C 12/15/2021 Diabetes: Ophthalmology Exam 12/15/2021 Diabetes: Pedal Pulse Checked 12/15/2021 Diabetes: Sensory Foot Exam 12/15/2021 Diabetes: Visual Foot Exam 12/15/2021 Influenza Vaccine (#1) 2024 08/22/2021 Hepatitis B Vaccine Aged Out No longe r eligible based on patient's age to complete this topic Insurance [employer]IL [employer] [facility] ([id number]) [employer] [facility] ([id number]) Care Teams Cardroom Worker Relationship Specialty Start Date End Date Boaz Astorga MD [address] [place] [address] PCP - General 11/01/20
--- OUTSIDE RECORDS SUMMARY | 2024-11-17 17:08 | XMS_ITS ---
Author Organization [facility] Address [address] [place] [address] Care Team Providers Care Microbiology Lab Technician Name Role Phone Boaz Astorga MD Primary Care Provider Yarely Medina Unavailable [phone] Allergies Allergen (clinical drug ingredient) Drug/Non Drug Allergy documented on EMR Reaction Allergy Type Onset Date Status amoxicillin Amoxicillin Unknown Drug Allergy Active aspirin Aspirin Unknown Drug Allergy Active sulfamethoxazole / trimethoprim Bactrim kidney issues Drug Allergy Active escitalopram Escitalopram Oxalate Unknown Drug Allergy Active isosorbide dinitrate Isosorbide Dinitrate Unknown Drug Allergy Active esomeprazole Nexium Unknown Drug Allergy Active Ranitidine 75 Unknown Drug Allergy Active topiramate Topamax Unknown Drug Allergy Active dexlansoprazole Dexilant Unknown Drug Allergy Active Water Pills Low blood pressure Drug Allergy Active Adhesive Unknown Allergy Active amlodipine Amlodipine Unknown Drug Allergy Active caffeine Caffeine Unknown Drug Allergy Active cortisone Cortisone Unknown Drug Allergy Active diclofenac Diclofenac Unknown Drug Allergy Active hydrochlorothiazide Hydrochlorothiazide Unknown D rug Allergy Active lisinopril Lisinopril Unknown Drug Allergy Active mirtazapine Mirtazapine Unknown Drug Allergy Active nystatin Nystatin Unknown Drug Allergy Active sertraline Sertraline Unknown Drug Allergy Active REASON FOR VISIT At Risk Footcare, Painful Nail(s) aggrevated by shoes and causing difficulty standing/walking., Skin Problem Medications Medication SIG (Take, Route, Frequency, Duration) Notes Start Date End Date Status busPIRone HCl 7.5 MG 1 tablet Orally Twi ce a day Active Nystatin 010585 UNIT/GM 1 application Externally Twice a day Not-Ancelmo walsh Ciclopirox Olamine 0.77 % 1 application to affected area Externally to feet Twice a day for 30 days Not-Taki ng Ozempic Active ALPRAZolam 0.25 MG 1 tablet Orally Twic e a day PRN Active Tylenol 500 1 tablet as needed Orally Not-Taking Bactrim DS 800-160 MG 1 tablet Orally ev carlos 12 hrs for 5 days 04/04/2022 Not-Taking Mupirocin 2 % 1 application Externally as needed Twice a day for 7 days Not-Takin g Ammonium Lactate 10 % 1 application Externally Twice a day to both feet for 30 days Active Mupirocin 2 % 1 application Externally Twice a day as neede to any open sores for 30 days 04/04/2022 Active Senna 8.6 MG Orally Once a day Not-Taking Furosemide 20 MG 1 tablet Orally Once a day Not-Taking Januvia 100 MG 1 tablet Orally Once a day for 30 day(s) Not-Taking Losartan Potassium 50 MG 1 tablet Orally Once a day Not-Taking Ketoconazole 2 % 1 application Externally Twice a day for 30 days 06/06/2023 Active Spironolactone Activ e Vitamin D Active Trulicity 0.75 MG/0.5ML as directed Subcutaneous Not-Taking Ciclopirox Olamine 0.77 % 1 application to affected area Externally to feet Twice a day for 30 days Not-Taki ng Atorvastatin Calcium 80 MG 1 tablet Orally Once a day for 30 day(s) Not-Taking metFORMIN HCl 500 MG 1 tablet with a modesto l Orally Once a day for 30 days Active Multivitamin Active Ointment Base Active Pantoprazole Sodium 40 MG 1 tablet Orall y Once a day for 30 day(s) Active Rosuvastatin Calcium 40 MG TAKE 1 TABLET BY MOUTH DAILY Oral for 90 Days Active Carvedilol 6.25 MG 1 tablet with food Orally Twice a day Active Clotrimazole-Betamethason e 1-0.05 % 1 application Externally Twice a day Active Eye Drops Active Glimepiride Active Social History Tobacco Use: Social History Observation Description Date Details (start date - stop date) Never Smoker NA - NA Tobacco Use/Smoking Question Answer Notes Are you a: nonsmoker Additional Findings: Tobacco Non-User Current no n-smoker Alcohol Screen Question Answer Notes Did you have a drink containing alcohol in the p ast year? No Points 0 Interpretation Negative Tobacco use other than smoking: Question Answer Notes Are you an other tobacco user? No Vital Signs Height 5 ft in 09/17/2024 Weight 143 lbs 09/17/2024 BMI 27.92 kg/m2 09/17/2024 Blood pressure systolic 122 mm Hg 09/17/20 Blood pressure diastolic 76` mm Hg 024 Encounters Encounter Location Date Provider Diagnosis [facility] [place] [address] [place] [address] 09/17/2024 Yarely Gibbs Tinea pedis of both feet B35.3 ; Type 2 diabetes mellitus with diabetic peripheral angiopathy without gangrene E11.51 ; Tinea unguium B35.1 ; Pain in left toe(s) M79.675 ; Pain in right toe(s) M79.674 and Xerosis cutis L85.3 Assessments Encounter Date Diagnosis (ICD Code) Assessment Notes Treatment Notes Treatment Clinical Notes Section Notes 09/17/2024 Tinea pedis of both feet (ICD-10 - B35.3) 09/17/2024 Type 2 diabetes mellitus with diabetic peripheral angiopathy without gangrene (ICD-10 - E11.51) 09/17/2024 Tinea unguium (ICD-10 - B35.1) 09/17/2024 Pain in left toe(s) (ICD-10 - M79.675) 09/17/2024 Pain in right toe(s) (ICD-10 - M79.674) 09/17/2024 Xerosis cutis (ICD-10 - L85.3) Plan Of Treatment Medication Medication Name Sig Start Date Stop Date Notes Ammonium Lactate 10 % 1 application Exte rnally Twice a day to both feet for 30 days Mupirocin 2 % 1 application Branch Manager ally Twice a day as neede to any open sores for 30 days 04/04/2022 Ketoconazole 2 % 1 application Branch Manager ally Twice a day for 30 days 06/06/2023 Next Appt Details Follow Up: 2 Months, Reason: Provider Name:Yarely puckett, 12/02/2024 02:00:00 PM, [address] [place], [address], Procedure Notes * Category Sub-Category Detail Notes Debride Nail 6-10 Nail debridement Performance o f this nail treatment by a nonprofessional would put this patients foot and overall health at risk. Therefore, debridement to affected nail(s), as described in exam, was performed extensively to reduce/remove overall nail length, girth, thickness, subungual debris, and necrotic tissue, by manual and/or electrical means through the use of a nail nipper and/or dremel-type needle grinder, to a more viable healthy nail plate or bed tissue 6-10 nails in total. Silver nitrate was used for any petechial bleeding as necessary. Definitive antifungal treatment options, both pharmaceutical and surgical, have been reviewed and discussed with the patient. The patient solely prefers the use of intermittent/as needed professional debridement services for their nail condition and understands the need for additional periodic treatments to maintain effectiveness in symptomatic relief - 61313 Keratoma Treatment Parring or Cutting o f Benign Hyperkeratotic Lesion(s) (-57) More than 4 Lesions - The Benign hyperkeratotic lesions, ( 6) in total, locations as stated and described in exam, were pared, and/or cut utilizing a sterile 15 blade, tissue nippers, and/or power dremel instrumentation - 95203 Progress Notes * Alicia DUONGDOB:1945 (78 yo F)Acc No.[id number]:09/17/2024 Progress Note Patient:?Alicia DUONG Provider:?Yarely Gibbs DPM :1945???Age:78 Y???Sex:Female D ate:09/17/2024 Address:[address] [place] [address] Pcp:Boaz Astorga MD Subjective: * Chief Complaints: * ???At Risk FootcarePainful N ail(s) aggrevated by shoes and causing difficulty standing/walking.Skin Problem * HPI: ???At Risk footcare:?Pt States Last PCP Visit:?Date?01/11/2024 ???Skin problems:?Location:?B/L .?Course:?unresolved.?Treatments:?medication ( Lac Hydrin) Medication (Ciclopirox Olamine 0.77 Cream), Nystatin, clomitrizole-betamethasone, Ketoconazole-pt relates works best.? * ROS:?General/Constitutional:?Nausea?denies.?Vomiting?denies.?Hunger Thirst?denies.?Loss appetite?denies.?Chills?denies.?Fatigue?denies.?Fever?denies.?Night Sweats?denies.?Unexplained weight loss?denies.?Unexplained weight gain?denies.?HEENTM:?Dentures?denies.?Dizziness?denies.?Glasses/contacts?admits.?Retinopathy?den ies.?Blurred/double vision?denies.?TMJ?denies.?Discharge/drainage?denies.?Implants?denies.?Sore throat?denies.?Dental implants?denies.?Hard of hearing ?denies.?Difficulty chewing/swallowing/speaking?denies.?Nose bleeds?denies.?Sore mouth?denies.?Respiratory:?On O xygen?denies.?Pneumonia/pleurisy?denies.?Bronchitis?denies.?Emphysema?denies.?Co ughing?denies.?Cough blood?denies.?Shortness of breath?denies.?Wheezing?denies.?Cardiovascular:?Pacemaker?denies.?MVP?denies.?WPW?denies.?CHF?denies.?Heart attack?denies.?Septal defect?denies.?Rapid beat?denies.?Chest pain ?denies.?Atrial Fib.?denies.?Murmur/Palpitations?denies.?Gastrointestinal:?Hemorrhoids?denies.?Stomach/Abdominal pain?denies.?Dark blood stool?denies.?Irritable bowel ?denies.?Constipation?denies.?Diarrhea?denies.?Hematology:?Swelling?admits.?Clots?denies.?Varicose Veins?denies.?Bruising?admits.?Bleeding problem?denies.?Genitourinary:?Blood urine?denies.?Frequent/Painfu/urination/bladder control?denies.?Kidney stones?denies.?Infection (UTI)?denies.?Nephropathy?denies.?sex trans dis (STD)?denies.?Prostate?denies.?Musculoskeletal:?Hammertoes?denies.?Bunions?denies.?Back Pain?denies.?Muscle Cramps/ Resting?denies.?Muscle cramps / walking?denies.?Generalized aches and pains?denies.?Weakness?denies.?Integ.:?Rojo?denies.?Scars?denies.?Corns/calluses?denies.?Ingrown nails?denies.?Painful nails?admits.?Open Sores?denies.?Rashes?denies.?Neurologic:?Difficulty sleeping?denies.?Brain disorder?denies.?Numbness?denies.?Balance t rouble?denies.?Confusion?denies.?Fainting/blackouts?denies.?Tingling?denies.?Anthony mors?denies.? * Medical History:? * Surgical History:?gall bladd er Surgery lumpectomy cataracts Fibroid * Hospitalization/Major Diagno stic Procedure:?[facility]- low blood pressure - water pill stayed 2 days 03/07/2021[facility]- blood pressure- 2 days - changed water pills 04/11[facility]- High BP -3 days * Family History:?Mother: dece ased, stroke, heart attack, diagnosed with Unspecified heart disease, Unspecified cerebral artery occlusion with cerebral infarction.?Father: , diagnosed with Unspecified heart disease, Family history of arthritis.?Siblings: diagnosed with Unspecified heart disease.? Family Hypertension. * Social History:?Tobacco Use:?Tobacco Use/Smoking?Are you a:?nonsmoker ?Additional Findings: Tobacco Non-User?Current non-smoker ?Tobacco use other than smoking?Are you an other tobacco user??No ???Drugs/Alcohol:?Drugs?Have you used drugs other than those for medical reasons in the past 12 months??No ?Alcohol Screen?Did you have a drink containing alcohol in the past year??No ?Points?0 ?Interpretation?Negative ???Miscellaneous:?Caffeine: yes, decaff once in a while. ?Children: yes, 2. ?Exercise: yes, walking. 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 * Medications:?TakingOzempic A mmonium Lactate ALPRAZolam 0.25 MG Tablet 1 tablet Orally Twice a day , Notes to Pharmacist: PRNbusPIRone HCl 7.5 MG Tablet 1 tablet Orally Twice a day Carvedilol 6.25 MG Tablet 1 tablet with food Orally Twice a day Clotrimazole-Betamethasone 1-0.05 % Cream 1 application Externally Twice a day Eye Drops Glimepiride metFORMIN HCl 500 MG Tablet 1 tablet with a meal Orally Once a day Multivitamin Ointment Base Pantoprazole Sodium 40 MG Tablet Delayed Release 1 tablet Orally Once a day Rosuvastatin Calcium 40 MG Tablet TAKE 1 TABLET BY MOUTH DAILY Oral Spironolactone Vitamin D Ketoconazole 2 % Cream 1 application Externally Twice a day Mupirocin 2 % Ointment 1 application Externally Twice a day as neede to any open sores Taking Ozempic Taking Ammonium Lactate Taking ALPRAZolam 0.25 MG Tablet 1 tablet Orally Twice a day , Notes to Pharmacist: PRNTaking busPIRone HCl 7.5 MG Tablet 1 tablet Orally Twice a day Taking Carvedilol 6.25 MG Tablet 1 tablet with food Orally Twice a day Taking Clotrimazole-Betamethasone 1-0.05 % Cream 1 application Externally Twice a day Taking Eye Drops Taking Glimepiride Taking metFORMIN HCl 500 MG Tablet 1 tablet with a meal Orally Once a day Taking Multivitamin Taking Ointment Base Taking Pantoprazole Sodium 40 MG Tablet Delayed Release 1 tablet Orally Once a day Taking Rosuvastatin Calcium 40 MG Tablet TAKE 1 TABLET BY MOUTH DAILY Oral Taking Spironolactone Taking Vitamin D Taking Ketoconazole 2 % Cream 1 application Externally Twice a day Taking Mupirocin 2 % Ointment 1 application Externally Twice a day as neede to any open sores Not- Taking/PRNTrulicity 0.75 MG/0.5ML Solution Pen-injector as directed Subcutaneous Ciclopirox Olamine 0.77 % Cream 1 application to affected area Externally to feet Twice a day Atorvastatin Calcium 80 MG Tablet 1 tablet Orally Once a day Furosemide 20 MG Tablet 1 tablet Orally Once a day Januvia 100 MG Tablet 1 tablet Orally Once a day Losartan Potassium 50 MG Tablet 1 tablet Orally Once a day Senna 8.6 MG Tablet Orally Once a day Tylenol 500 mg 1 tablet as needed Orally Bactrim DS 800-160 MG Tablet 1 tablet Orally every 12 hrs Mupirocin 2 % Ointment 1 application Externally as needed Twice a day Nystatin 072721 UNIT/GM Cream 1 application Externally Twice a day Ciclopirox Olamine 0.77 % Cream 1 application to affected area Externally to feet Twice a day Medication List reviewed and reconciled with the patientNot-Taking/PRN Trulicity 0.75 MG/0.5ML Solution Pen-injector as directed Subcutaneous Not-Taking/PRN Ciclopirox Olamine 0.77 % Cream 1 application to affected area Externally to feet Twice a day Not- Taking/PRN Atorvastatin Calcium 80 MG Tablet 1 tablet Orally Once a day Not-Taking/PRN Furosemide 20 MG Tablet 1 tablet Orally Once a day Not-Taking/PRN Januvia 100 MG Tablet 1 tablet Orally Once a day Not-Taking/PRN Losartan Potassium 50 MG Tablet 1 tablet Orally Once a day Not-Taking/PRN Senna 8.6 MG Tablet Orally Once a day Not-Taking/PRN Tylenol 500 mg 1 tablet as needed Orally Not-Taking/PRN Bactrim DS 800-160 MG Tablet 1 tablet Orally every 12 hrs Not-Taking/PRN Mupirocin 2 % Ointment 1 application Externally as needed Twice a day Not-Taking/PRN Nystatin 712774 UNIT/GM Cream 1 application Externally Twice a day Not-Taking/PRN Ciclopirox Olamine 0.77 % Cream 1 application to affected area Externally to feet Twice a day Medication List reviewed and reconciled with the patient * Allergies:?AspirinAmoxicillinAdhesiveLisinoprilHydrochlorothiazideCortisoneAmlod ipineIsosorbide DinitrateRanitidine 75NexiumCaffeineTopamaxDexilantSertralineDiclofenacEscitalopram OxalateMirtazapineNystatinWater Pills: Low blood pressure - Side EffectsBactrim: kidney issuesyes[Allergies Verified] Objective: * Vitals:?Ht: 5 ft, Wt: 143, B ME: 27.92, Shoe size: 8W, BP: 122/76`, BS: 66, Wt- k.86 kg. * Examination: ???Ophthalmology Referral: ?DIABETES EYE EXAM?Dermatologic: ?SKIN FINDINGS:?Skin exam reveals Keratotic lesion(s) located at, Medial plantar, TA, T5, Heel(s), Midfoot, B/L , Skin shows sign(s) of, erythema, scaling, in a moccasin fashion, no fissure(s) present, B/L , Skin shows sign(s) of, dryness, scaling, in a stocking fashion, no fissure(s) present, B/L.?Nails: ?NAILS are:?Elongated, overgrown, dystrophic, lytic, greater than 3mm thick, discolored and friable with crumbly malodorous subungual debris, with pain on palpation, T1, T3, T4, T6, T7, T8, T9.?Vascular: ?DP PULSES(B):? 0/4, B/L.?PT PULSES(B):? 0/4, B/L.?CAPILLARY FILL TIME:? delayed, all digits, B/L.?TEMPERTURE GRADIENT(C):? decreased, cool to cool, proximal to distal, B/L.? 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 Plan: * Treatment: 2.?Xerosis cutis? Refill Ammonium Lactate Lotion, 10 %, 1 application, Externally, Twice a day to both feet, 30 days, 1, Refills 3;?Refill Mupirocin Ointment, 2 %, 1 application, Externally, Twice a day as neede to any open sores, 30 days, 1, Refills 2.?? * Procedures:?Debride Nail 6-10:?Nail debridement?Performance of this nail treatment by a nonprofessional would put this patients foot and overall health at risk. Therefore, debridement to affected nail(s), as described in exam, was performed extensively to reduce/remove overall nail length, girth, thickness, subungual debris, and necrotic tissue, by manual and/or electrical means through the use of a nail nipper and/or dremel-type needle grinder, to a more viable healthy nail plate or bed tissue 6-10 nails in total. Silver nitrate was used for any petechial bleeding as necessary. Definitive antifungal treatment options, both pharmaceutical and surgical, have been reviewed and discussed with the patient. The patient solely prefers the use of intermittent/as needed professional debridement services for their nail condition and understands the need for additional periodic treatments to maintain effectiveness in symptomatic relief - 33391.?Keratoma Treatment:?Parring or Cutting of Benign Hyperkeratotic Lesion(s)?(-57) More than 4 Lesions - The Benign hyperkeratotic lesions, ( 6) in total, locations as stated and described in exam, were pared, and/or cut utilizing a sterile 15 blade, tissue nippers, and/or power dremel instrumentation - 97037.? * Procedure Codes:?31446 DEBRI DE NAIL, 6 OR MORE, Modifiers: XS 89826 TRIM SKIN LESIONS, OVER 4, Modifiers: XS * Preventive Medicine:? ??Counseling:?Discussion:?-13: Office or other outpatient visit for the evaluation and management of an established patient, which required a medically appropriate history and/or examination and LOW level of DECISION MAKING for: 1 STABLE ACUTE UNCOMPLICATED PROBLEM, 2 OR MORE MINOR PROBLEMS, OR 1 STABLE CHRONIC PROBLEM, THAT POSE(S) A LOW RISK FOR MORBIDITY/MORTALITY. The visit on the day of the encounter encompassed interpreting the data and educating the patient as to the nature of their condition, treatment options available according to their individual PMH, meds, allergies, and overall health/living conditions, as well as any potential risks or complications that may occur from a failure to adhere to, and participate in, the recommended course of therapy. The discussion included a complete verbal, and/or written explanation of the examination results, any x-rays taken, the proposed diagnosis, and outline of the treatment plan. A schedule for future care needs was also explained. The patient verbalized an understanding of the instructions at this time and agreed to be an active participant in their treatment. If the patient should think of any questions or concerns after the visit, I have encouraged the patient to call the office.?Tinea Pedis:?The patient was counseled on the diagnosis, potential etiologies, and treatment options for their skin condition. We discussed the risks and benefits of each option from performing no treatment, to utilizing OTC topical skin creams, prescription topical creams, customized compounded topical medications, and, if necessary, to utilize oral antifungal therapy. A refill on the pt's Rx was sent to their pharmacy at the time of visit.?Xerosis:?=, The patient was counseled on the diagnosis, potential etiologies, and treatment options for their skin condition. We discussed the risks and benefits of each option from performing no treatment, to utilizing OTC topical skin creams/ointments, to utilizing prescription topical creams/ointments, to utilizing customized compounded topical medications and use of nocturnal occlusion with any/all previously detailed therapies. We discussed the advantages and disadvantages of each possible treatment and importance for adherence to all the recommended therapies for optimum success and avoid potential complications such as open sore/infection/possible hospitalization. We discussed the potential effectiveness of each topical preparation as well as each ones possible side effects and/or patient medication interactions. Patient questions re: use, dosage, successful outcomes, and application consistency were reviewed and the patient verbalized that all answers were clearly understood. The patient has decided to continue Am Lactin.? * Follow Up:?2 Months * Images: * Sign off status: Completed true * Provider:?Yarely Gibbs, DPM Date:? Generated for Mary Ann baca/Suzy/Ventura on:?11/17/2024 05:08 PM EST History and Physical Notes * HPI (History of Present Illness) Category Sub-Category Detail Notes Category Not es Skin problems Location: B/L Course: unresolved Treatments: medication ( Lac Hyd rin) Medication (Ciclopirox Olamine 0.77 Cream), Nystatin, clomitrizole-betamethasone, Ketoconazole-pt relates works best At Risk footcare Pt States Last PCP Visit: Date: 4 Examination Category Sub-Category Detail Notes Category Not es Dermatologic SKIN FINDINGS: Skin exam reveal s Keratotic lesion(s) located at, Medial plantar, TA, T5, Heel(s), Midfoot, B/L , Skin shows sign(s) of, erythema, scaling, in a moccasin fashion, no fissure(s) present, B/L , Skin shows sign(s) of, dryness, scaling, in a stocking fashion, no fissure(s) present, B/L Ophthalmology Referral DIABETES EYE EXAM Procedu re Performed:: Yes ?Date of Exam Performed: 10/22/2023 Findings of Diabetic Eye Exam:: no retin opathy Vascular DP PULSES (B): 0/4, B/L PT PULSES (B): 0/4, B/L CAPILLARY FILL TIME: delayed, all digits , B/L TEMPERTURE GRADIENT (C): decreased, cool to cool, proximal to distal, B/L Nails NAILS are: Elongated, overg rown, dystrophic, lytic, greater than 3mm thick, discolored and friable with crumbly malodorous subungual debris, with pain on palpation, T1, T3, T4, T6, T7, T8, T9
--- OUTSIDE RECORDS SUMMARY | 2024-11-17 17:08 | XMS_ITS | Patient Health Record ---
[facility] Organization [facility] [place] Address [address] [place] [address] Care Team Providers Care Software Program Manager Name Role Phone Rizwan SORENSON, [place] Primary Care Provider Yarely Medina Unavailable [phone] Allergies Allergen (clinical drug ingredient) Drug/Non Drug [...] Active sertraline Sertraline Unknown Drug Allergy Active Results Component Value Reference Range Notes HEMOGLOBIN A1C (GLYCOHEMOGLO BIN) Reviewed date:11/23/2023 12:00:03 PM Interpretation: Performing Lab: Notes/Report: HEMOGLOBIN A1C (HH) 8.0 Reason For Referral Diagnosis 1 Type 2 diabetes caroline itus with diabetic peripheral angiopathy without gangrene (E11.51) Diagnosis 2 Tinea unguium (B35.1 ) Diagnosis 3 Pain in left toe(s) (M79.675) Diagnosis 4 Pain in right toe(s) (M79.674) Diagnosis 5 Tinea pedis of both feet (B35.3) Diagnosis 6 Cellulitis of left f oot (L03.116) Diagnosis 7 Abrasion, left foot, initial encounter (S90.812A) Diagnosis 8 Xerosis cutis (L85.3 ) Diagnosis 9 Abrasion, left foot, subsequent encounter (S90.812D) Diagnosis 10 Contusion of left le sser toe(s) without damage to nail, initial encounter (S90.122A) Diagnosis 11 Contusion of left fo ot, subsequent encounter (S90.32XD) Diagnosis 12 Contusion of left fo ot or heel (S90.32XA) Referring Provider First Name Boaz Referring Provider Last Name Rizwan Referred [facility] Referred Provider Yarely Gibbs Referred Address [address] [place], [place],[address],[place] Referred Provider Specialty Podiatry Referral Priority Routine Medications Medication SIG (Take, Route, Frequency, Duration) Notes Start Date End Date Status Spironolactone Activ e Vitamin D Active Trulicity 0.75 MG/0.5ML as directed Subcutaneous Not-Taking Ciclopirox Olamine 0.77 % 1 application to affected area Externally to feet Twice a day for 30 days Not-Taki ng Atorvastatin Calcium 80 MG 1 tablet Orally Once a day for 30 day(s) Not-Taking Ammonium Lactate 12 % 1 application Externally Twice a day to both feet for 30 days Active Ketoconazole 2 % 1 application Externally Twice a day for 30 days 06/06/2023 Active Ammonium Lactate 10 % 1 application Externally Twice a day to both feet for 30 days Active Mupirocin 2 % 1 application Externally Twice a day as neede to any open sores for 30 days 04/04/2022 Active Multivitamin Active Ointment Base Active Pantoprazole Sodium 40 MG 1 tablet Orall y Once a day for 30 day(s) Active Rosuvastatin Calcium 40 MG TAKE 1 TABLET BY MOUTH DAILY Oral for 90 Days Active Senna 8.6 MG Orally Once a day Not-Taking Tylenol 500 1 tablet as needed Orally Not-Taking busPIRone HCl 7.5 MG 1 tablet Orally Twi ce a day Active Bactrim DS 800-160 MG 1 tablet Orally ev carlos 12 hrs for 5 days 04/04/2022 Not-Taking Carvedilol 6.25 MG 1 tablet with food Orally Twice a day Active Mupirocin 2 % 1 application Externally as needed Twice a day for 7 days Not-Takin g Clotrimazole-Betamethason e 1-0.05 % 1 application Externally Twice a day Active Nystatin 607576 UNIT/GM 1 application Externally Twice a day Not-Takin g Eye Drops Active Ciclopirox Olamine 0.77 % 1 application to affected area Externally to feet Twice a day for 30 days Not-Taki ng Glimepiride Active metFORMIN HCl 500 MG 1 tablet with a [place] Orally Once a day for 30 days Active Furosemide 20 MG 1 tablet Orally Once a day Not-Taking Januvia 100 MG 1 tablet Orally Once a day for 30 day(s) Not-Taking Ozempic Active Losartan Potassium 50 MG 1 tablet Orally Once a day Not-Taking ALPRAZolam 0.25 MG 1 tablet Orally Twic e a day PRN Active Immunizations Vaccine Route Administration Date Status Comme nts COVID-19 Pfizer BioNTech Vaccine Unknown 09/08/2021 Administered 1st 01/06/2021 2nd 01/27/2021 Influenza Unknown 08/22/2022 Administered Influenza Unknown 07/25/2023 Administered Social History Tobacco Use: Social History Observation [...] Are you an other tobacco user? No Problems Problem Type SNOMED Code ICD Code Onset Dates Problem Status W/U Status Risk Notes Problem Type 2 diabetes mellitus with peripheral angiopathy (291251291) Type 2 diabetes mellitus with diabetic peripheral angiopathy without gangrene (E11.51) Active confirmed Vital Signs Blood pressure diastolic 76` mm Hg 09/17/2024 Height 5 ft in 09/17/2024 Blood pressure systolic 122 mm Hg 09/17/2024 Weight 143 lbs 09/17/2024 BMI 27.92 kg/m2 09/17/2024 Encounters Encounter Location Date Provider [facility] [address] [place] [address] 11/23/2023 Yarely Perica Tinea pedis of both feet B35.3 ; Type 2 diabetes mellitus with diabetic peripheral angiopathy without gangrene E11.51 ; Tinea unguium B35.1 ; Pain in left toe(s) M79.675 and Pain in right toe(s) M79.[address] [address] 02/26/2024 Yarely Perica Tinea pedis of both feet B35.3 ; Type 2 diabetes mellitus with diabetic peripheral angiopathy without gangrene E11.51 ; Tinea unguium B35.1 ; Pain in left toe(s) M79.675 and Pain in right toe(s) M79.[address] [address] 07/09/2024 Yarely Perica Tinea pedis of both feet B35.3 ; Type 2 diabetes mellitus with diabetic peripheral angiopathy without gangrene E11.51 ; Tinea unguium B35.1 ; Pain in left toe(s) M79.675 and Pain in right toe(s) M79.[address] [address] 09/17/2024 Yarely Perica Tinea pedis of both feet B35.3 ; Type 2 diabetes mellitus with diabetic peripheral angiopathy without gangrene E11.51 ; Tinea unguium B35.1 ; Pain in left toe(s) M79.675 ; Pain in right toe(s) M79.674 and Xerosis cutis L85.[address] [address] 05/26/2024 Yarely Simeona [address] [address] 05/27/2024 Yarely Perica [address] [address] 07/02/2024 Yarely Gibbs Assessments Encounter Date Diagnosis (ICD Code) Assessment Notes Treatment Notes Treatment Clinical Notes Section Notes 11/23/2023 Type 2 diabetes mellitus with diabetic peripheral angiopathy without gangrene (ICD-10 - E11.51) 11/23/2023 Tinea pedis of both feet (ICD-10 - B35.3) 02/26/2024 Type 2 diabetes mellitus with diabetic peripheral angiopathy without gangrene (ICD-10 - E11.51) 02/26/2024 Tinea pedis of both feet (ICD-10 - B35.3) 07/09/2024 Tinea pedis of both feet (ICD-10 - B35.3) 09/17/2024 Type 2 diabetes mellitus with diabetic peripheral angiopathy without gangrene (ICD-10 - E11.51) 09/17/2024 Tinea pedis of both feet (ICD-10 - B35.3) 09/17/2024 Tinea unguium (ICD-10 - B35.1) 07/09/2024 Type 2 diabetes mellitus with diabetic peripheral angiopathy without gangrene (ICD-10 - E11.51) 02/26/2024 Tinea unguium (ICD-10 - B35.1) 11/23/2023 Tinea unguium (ICD-10 - B35.1) 11/23/2023 Pain in left toe(s) (ICD-10 - M79.675) 02/26/2024 Pain in left toe(s) (ICD-10 - M79.675) 07/09/2024 Tinea unguium (ICD-10 - B35.1) 09/17/2024 Pain in left toe(s) (ICD-10 - M79.675) 09/17/2024 Pain in right toe(s) (ICD-10 - M79.674) 07/09/2024 Pain in left toe(s) (ICD-10 - M79.675) 02/26/2024 Pain in right toe(s) (ICD-10 - M79.674) 11/23/2023 Pain in right toe(s) (ICD-10 - M79.674) 07/09/2024 Pain in right toe(s) (ICD-10 - M79.674) 09/17/2024 Xerosis cutis (ICD-10 - L85.3) Plan Of Treatment Pending Test Test Name Order Date X ray : Foot, left 3V 05/19/2022 X ray : Foot, left 3V 06/07/2022 Next Appt Details Provider Name:Yarely Rodriguez Blanco lavern, 12/02/2024 02:00:00 PM, [address] [place] [address], [phone], Insurance Providers Payer Name Payer Address Payer Phone Subscriber Number Group Number Insured Name Patient Relationship to Insured Coverage Start Date Coverage End Date [facility] [address] [place] [phone] [id number] NoelAlicia manjarrez Self - patient is the insured Medical (General) History Medical History History ICD Code Angina Anxiety Arthritis Back, Hip, Knee Pain Depression Headaches/Migraines Heart Disease High Blood Pressure Poor Circulation Psychiatric Disorder CAD (Cholesterol) type II diabetes Crack in the ribs Surgical History Surgery Date(Month/Year) gall bladder Surgery lumpectomy cataracts Fibroid Hospitalization History Reason Date(Month/Year) [facility] [place] BP -3 days [facility] [place] blood pressure- 2 days - changed wa ter pills 04/11 [facility] [place] low blood pressure - water pill sta yed 2 days 03/07/2021
--- OUTSIDE RECORDS SUMMARY | 2024-11-17 17:09 | XMS_ITS ---
Author Organization [facility] [place] Address [address] [place] [address] Care Team Providers Care Receiving Associate Store Name Role Phone Boaz Astorga MD Primary Care Provider Yarley Medina Unavailable [phone] Allergies Allergen (clinical drug ingredient) Drug/Non Drug [...] Unknown Drug Allergy Active REASON FOR VISIT PCP: 12/2023, At Risk Footcare, Painful Nail(s) aggrevated by shoes and causing difficulty standing/walking., Skin Problem Medications Medication SIG (Take, Route, Frequency, Duration) Notes Start Date End Date Status Ciclopirox Olamine 0.77 % 1 application to affected area Externally to feet Twice a day for 30 days Not-Taki ng Nystatin 815383 UNIT/GM 1 application Externally Twice a day Not-Takin g Tylenol 500 1 tablet as needed Orally Not-Taking Mupirocin 2 % 1 application Externally as needed Twice a day for 7 days Not-Takin g Bactrim DS 800-160 MG 1 tablet Orally ev carlos 12 hrs for 5 days 04/04/2022 Not-Taking Atorvastatin Calcium 80 MG 1 tablet Orally Once a day for 30 day(s) Not-Taking Senna 8.6 MG Orally Once a day Not-Taking Losartan Potassium 50 MG 1 tablet Orally Once a day Not-Taking Januvia 100 MG 1 tablet Orally Once a day for 30 day(s) Not-Taking Furosemide 20 MG 1 tablet Orally Once a day Not-Taking Ciclopirox Olamine 0.77 % 1 application to affected area Externally to feet Twice a day for 30 days Not-Taki ng Trulicity 0.75 MG/0.5ML as directed Subcutaneous Not-Taking Mupirocin 2 % 1 application Externally Twice a day as neede to any open sores for 30 days 04/04/2022 Active Ketoconazole 2 % 1 application Externally Twice a day for 30 days 06/06/2023 Active Vitamin D Active Pantoprazole Sodium 40 MG 1 tablet Orall y Once a day for 30 day(s) Active Ointment Base Active Multivitamin Active Spironolactone Activ e Rosuvastatin Calcium 40 MG TAKE 1 TABLET BY MOUTH DAILY Oral for 90 Days Active Glimepiride Active Eye Drops Active Clotrimazole-Betamethason e 1-0.05 % 1 application Externally Twice a day Active metFORMIN HCl 500 MG 1 tablet with a [place] l Orally Once a day for 30 days Active Carvedilol 6.25 MG 1 tablet with food Orally Twice a day Active Ozempic Active busPIRone HCl 7.5 MG 1 tablet Orally Twi ce a day Active ALPRAZolam 0.25 MG 1 tablet Orally Twic e a day PRN Active Ammonium Lactate Act roshni Social History Tobacco Use: Social History Observation Description Date Details (start date - stop date) Never Smoker NA - NA Tobacco Use/Smoking Question Answer Notes Are you a: nonsmoker Additional Findings: Tobacco Non-User Current no n-smoker Tobacco use other than smoking: Question Answer Notes Are you an other tobacco user? No Vital Signs Height 5 ft in 07/09/2024 Weight 143 lbs 07/09/2024 BMI 27.92 kg/m2 07/09/2024 Blood pressure systolic 120 mm Hg 07/09/20 24 Blood pressure diastolic 66 mm Hg 024 Encounters Encounter Location Date Provider Diagnosis [facility] [address] [address] 07/09/2024 Yarely Gibbs Tinea pedis of both feet B35.3 ; Type 2 diabetes mellitus with diabetic peripheral angiopathy without gangrene E11.51 ; Tinea unguium B35.1 ; Pain in left toe(s) M79.675 and Pain in right toe(s) M79.674 Assessments Encounter Date Diagnosis (ICD Code) Assessment Notes Treatment Notes Treatment Clinical Notes Section Notes 07/09/2024 Tinea pedis of both feet (ICD-10 - B35.3) 07/09/2024 Type 2 diabetes mellitus with diabetic peripheral angiopathy without gangrene (ICD-10 - E11.51) 07/09/2024 Tinea unguium (ICD-10 - B35.1) 07/09/2024 Pain in left toe(s) (ICD-10 - M79.675) 07/09/2024 Pain in right toe(s) (ICD-10 - M79.674) Plan Of Treatment Next Appt Details Follow Up: 2 Months, Reason: Provider Name:Yarely Jnenifer puckett, 12/02/2024 02:00:00 PM, [address] [place] [address], [id number], Procedure Notes * Category Sub-Category Detail Notes Debride Nail 6-10 Nail debridement Nail debridem ent performed extensively to reduce/remove overall nail length and girth, subungual debris, and necrotic tissue, by manual and electrical means with use of a nail nipper and/or dremel, to more viable healthy nail plate or bed tissue 6-10. Silver nitrate used for any petechial bleeding as necessary. Patient chooses, no pharmaceutical tx (15358) Keratoma Treatment Parring or Cutting o f Benign Hyperkeratotic Lesion(s) 34982 ( >4 Lesions) - The Benign hyperkeratotic lesions, as described above were pared, and/or cut utilizing a sterile #15 blade, tissue nippers, and/or dremel, Q8 Progress Notes * Jeanna DUONG:1945 (78 yo F)Acc No.[id number]:07/09/2024 Progress Note Patient:Alicia Leonard Provider:?Yarely Gibbs DPM :1945???Age:78 Y???Sex:Female D ate:07/09/2024 Address:[address] [place], [place] [id number] Pcp:Boaz Astorga MD Subjective: * Chief Complaints: * ???PCP: t Risk Footc arePainful Nail(s) aggrevated by shoes and causing difficulty standing/walking.Skin Problem * HPI: ???At Risk footcare:?Pt States Last PCP Visit:?Date?01/11/2024 ???Skin problems:?Location:?B/L .?Treatments:?medication ( Lac Hydrin) Medication (Ciclopirox Olamine 0.77 Cream), Nystatin, clomitrizole-betamethasone, Ketoconazole-pt relates works best.? * ROS:?General/Constitutional:?Nausea?denies.?Vomiting?denies.?Hunger Thirst?denies.?Loss appetite?denies.?Chills?denies.?Fatigue?denies.?Fever?denies.?Night Sweats?denies.?Unexplained weight loss?denies.?Unexplained weight gain?denies.?HEENTM:?Dentures?denies.?Dizziness?denies.?Glasses/contacts?admits.?Retinopathy?de nies.?Blurred/double vision?denies.?TMJ?denies.?Discharge/drainage?denies.?Implants?denies.?Sore throat?denies.?Dental implants?denies.?Hard of hearing ?denies.?Difficulty chewing/swallowing/speaking?denies.?Nose bleeds?denies.?Sore mouth?denies.?Respiratory:?On Oxygen?denies.?Pneumonia/pleurisy?denies.?Bronchitis?denies.?Emphysema?denies.?C oughing?denies.?Cough blood?denies.?Shortness of breath?denies.?Wheezing?denies.?Cardiovascular:?Pacemaker?denies.?MVP?denies.?WPW?denies.?CHF?denies.?Heart attack?denies.?Septal defect?denies.?Rapid beat?denies.?Chest pain ?denies.?Atrial Fib.?denies.?Murmur/Palpitations?denies.?Gastrointestinal:?Hemorrhoids?denies.?Stomach/Abdominal pain?denies.?Dark blood stool?denies.?Irritable bowel ?denies.?Constipation?denies.?Diarrhea?denies.?Hematology:?Swelling?admits.?Clots?denies.?Varicose Veins?denies.?Bruising?admits.?Bleeding problem?denies.?Genitourinary:?Blood urine?denies.?Frequent/Painfu/urination/bladder control?denies.?Kidney stones?denies.?Infection (UTI)?denies.?Nephropathy?denies.?sex trans dis (STD)?denies.?Prostate?denies.?Musculoskeletal:?Hammertoes?denies.?Bunions?denies.?Back Pain?denies.?Muscle Cramps/ Resting?denies.?Muscle cramps / walking?denies.?Generalized aches and pains?denies.?Weakness?denies.?Integ.:?Rojo?denies.?Scars?denies.?Corns/calluses?denies.?Ingrown nails?denies.?Painful nails?admits.?Open Sores?denies.?Rashes?denies.?Neurologic:?Difficulty sleeping?denies.?Brain disorder?denies.?Numbness?denies.?Balance trouble?denies.?Confusion?denies.?Fainting/blackouts?denies.?Tingling?denies.?Tr emors?denies.? * Medical History:? * Surgical History:?carol truong er Surgery lumpectomy cataracts Fibroid * Hospitalization/Major Diagno stic Procedure:[place] [place] pressure - water pill stayed 2 days 03/07/2021[facility] [place] pressure- 2 days - changed water pills 04/11[facility] [place] High BP -3 days * Family History:?Mother: dece ased, stroke, heart attack, diagnosed with Unspecified heart disease, Unspecified cerebral artery occlusion with cerebral infarction.?Father: , diagnosed with Family history of arthritis, Unspecified heart disease.?Siblings: diagnosed with Unspecified heart disease.? Family Hypertension. * Social History:?Tobacco Use:?Tobacco Use/Smoking?Are you a:?nonsmoker ?Additional Findings: Tobacco Non-User?Current non-smoker ?Tobacco use other than smoking?Are you an other tobacco user??No ???Miscellaneous:?Caffeine: yes, decaff once in a while. ?Children: yes, 2. ?Exercise: yes, walking. 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 * Medications:?TakingOzempic A mmonium Lactate ALPRAZolam 0.25 MG Tablet 1 tablet Orally Twice a day, Notes: PRNbusPIRone HCl 7.5 MG Tablet 1 tablet Orally Twice a dayCarvedilol 6.25 MG Tablet 1 tablet with food Orally Twice a dayClotrimazole-Betamethasone 1-0.05 % Cream 1 application Externally Twice a dayEye Drops Glimepiride metFORMIN HCl 500 MG Tablet 1 tablet with a meal Orally Once a dayMultivitamin Ointment Base Pantoprazole Sodium 40 MG Tablet Delayed Release 1 tablet Orally Once a dayRosuvastatin Calcium 40 MG Tablet TAKE 1 TABLET BY MOUTH DAILY Oral Spironolactone Vitamin D Ketoconazole 2 % Cream 1 application Externally Twice a dayMupirocin 2 % Ointment 1 application Externally Twice a day as neede to any open soresTaking Ozempic Taking Ammonium Lactate Taking ALPRAZolam 0.25 MG Tablet 1 tablet Orally Twice a day, Notes: PRNTaking busPIRone HCl 7.5 MG Tablet 1 tablet Orally Twice a dayTaking Carvedilol 6.25 MG Tablet 1 tablet with food Orally Twice a dayTaking Clotrimazole-Betamethasone 1-0.05 % Cream 1 application Externally Twice a dayTaking Eye Drops Taking Glimepiride Taking metFORMIN HCl 500 MG Tablet 1 tablet with a meal Orally Once a dayTaking Multivitamin Taking Ointment Base Taking Pantoprazole Sodium 40 MG Tablet Delayed Release 1 tablet Orally Once a dayTaking Rosuvastatin Calcium 40 MG Tablet TAKE 1 TABLET BY MOUTH DAILY Oral Taking Spironolactone Taking Vitamin D Taking Ketoconazole 2 % Cream 1 application Externally Twice a dayTaking Mupirocin 2 % Ointment 1 application Externally Twice a day as neede to any open soresNot-Taking/PRNTrulicity 0.75 MG/0.5ML Solution Pen-injector as directed Subcutaneous Ciclopirox Olamine 0.77 % Cream 1 application to affected area Externally to feet Twice a dayAtorvastatin Calcium 80 MG Tablet 1 tablet Orally Once a dayFurosemide 20 MG Tablet 1 tablet Orally Once a dayJanuvia 100 MG Tablet 1 tablet Orally Once a dayLosartan Potassium 50 MG Tablet 1 tablet Orally Once a daySenna 8.6 MG Tablet Orally Once a dayTylenol 500 mg 1 tablet as needed Orally Bactrim DS 800-160 MG Tablet 1 tablet Orally every 12 hrsMupirocin 2 % Ointment 1 application Externally as needed Twice a dayNystatin 648617 UNIT/GM Cream 1 application Externally Twice a dayCiclopirox Olamine 0.77 % Cream 1 application to affected area Externally to feet Twice a dayMedication List reviewed and reconciled with the patientNot-Taking/PRN Trulicity 0.75 MG/0.5ML Solution Pen-injector as directed Subcutaneous Not-Taking/PRN Ciclopirox Olamine 0.77 % Cream 1 application to affected area Externally to feet Twice a dayNot-Taking/PRN Atorvastatin Calcium 80 MG Tablet 1 tablet Orally Once a dayNot-Taking/PRN Furosemide 20 MG Tablet 1 tablet Orally Once a dayNot-Taking/PRN Januvia 100 MG Tablet 1 tablet Orally Once a dayNot-Taking/PRN Losartan Potassium 50 MG Tablet 1 tablet Orally Once a dayNot-Taking/PRN Senna 8.6 MG Tablet Orally Once a dayNot-Taking/PRN Tylenol 500 mg 1 tablet as needed Orally Not-Taking/PRN Bactrim DS 800-160 MG Tablet 1 tablet Orally every 12 hrsNot-Taking/PRN Mupirocin 2 % Ointment 1 application Externally as needed Twice a dayNot-Taking/PRN Nystatin 527029 UNIT/GM Cream 1 application Externally Twice a dayNot-Taking/PRN Ciclopirox Olamine 0.77 % Cream 1 application to affected area Externally to feet Twice a dayMedication List reviewed and reconciled with the patient * Allergies:?AspirinAmoxicillinAdhesiveLisinoprilHydrochlorothiazideCortisoneAmlod ipineIsosorbide DinitrateRanitidine 75NexiumCaffeineTopamaxDexilantSertralineDiclofenacEscitalopram OxalateMirtazapineNystatinWater Pills: Low blood pressure - Side EffectsBactrim: kidney issuesyes[Allergies Verified] Objective: * Vitals:?Ht: 5 ft, Wt: 143, B AL: 27.92, Shoe size: 8W, BP: 120/66 mm Hg, BS: 116, Wt-k.86 kg. * ???Past Orders: ???Lab:HEMOGLOBIN A1C (GLYCO HEMOGLOBIN) (Order Date - 11/23/2023) (Collection Date - 2023) ? Value Reference Range ?HEMOGLOBIN A1C (HH) 8.0 * Examination: ???Ophthalmology Referral: ?DIABETES EYE EXAM?Dermatologic: ?SKIN FINDINGS:?Skin exam reveals Keratotic lesion(s) located at, Medial plantar, TA, T5, Heel(s), Midfoot, B/L , Skin shows sign(s) of, erythema, scaling, in a moccasin fashion, no fissure(s) present, B/L?.?Nails: ?NAILS are:?Elongated, overgrown, dystrophic, lytic, greater than 3mm thick, discolored and friable with crumbly malodorous subungual debris, with pain on palpation, T1, T3, T4, T6, T7, T8, T9.?Vascular: ?DP PULSES(B):? 0/4, B/L.?PT PULSES(B):? 0/4, B/L.?CAPILLARY FILL TIME:? delayed, all digits, B/L.?TEMPERTURE GRADIENT(C):? decreased, cool to cool, proximal to distal, B/L.? Assessment: * Assessment: 1.?Tinea pedis of both feet - B35.3 (Primary), Chronic problem, Stable (1=3,2=4)?2.?Type 2 diabetes mellitus with diabetic peripheral angiopathy without gangrene - E11.51?3.?Tinea unguium - B35.1?4.?Pain in left toe(s) - M79.675?5.?Pain in right toe(s) - M79.674? Plan: * Treatment: * Procedures:?Debride Nail 6-10:?Nail debridement?Nail debridement performed extensively to reduce/remove overall nail length and girth, subungual debris, and necrotic tissue, by manual and electrical means with use of a nail nipper and/or dremel, to more viable healthy nail plate or bed tissue 6-10. Silver nitrate used for any petechial bleeding as necessary. Patient chooses, no pharmaceutical tx (85928).?Keratoma Treatment:?Parring or Cutting of Benign Hyperkeratotic Lesion(s)?09598 ( >4 Lesions) - The Benign hyperkeratotic lesions, as described above were pared, and/or cut utilizing a sterile #15 blade, tissue nippers, and/or dremel, Q8.? * Procedure Codes:?35680 DEBRI DE NAIL, 6 OR MORE, Modifiers: XS 24503 TRIM SKIN LESIONS, OVER 4, Modifiers: XS [...] if necessary, to utilize oral antifungal therapy. We discussed the advantages and disadvantages of each possible treatment and importance for adherence to all the recommended therapies for optimum success and avoid potential complications such as open sore/infection/possible hospitalization. We discussed the potential effectiveness of each topical preparation as well as each ones possible side effects and/or patient medication interactions if oral therapy is selected. Patient questions re: the advantages and disadvantages of each treatment choice, medication use/dosage, successful outcomes, and application consistency were reviewed and the patient verbalized that all answers were clearly understood. The patient was told they can help alleviate symptoms by utilizing moisture absorbant innersoles with activated charcoal and baking soda, applying antifungal sprays daily, aerating toe web spaces at night by putting cotton or lambs wool between the toes, alternating shoe gear daily if possible so they can dry out, changing socks at least once during the day, wearing well-ventilated shoes or sandals. The patient has decided to apply antifungal skin creams to their feet as directed. Rx was sent to their pharmacy at the time of visit.? * Follow Up:?2 Months * Images: * Sign off status: Completed true * Provider:?Yarely Gibbs, DPM Date:? Generated for Mary Ann baca/Suzy/Ventura on:?11/17/2024 05:08 PM EST History and Physical Notes * HPI (History of Present Illness) Category Sub-Category Detail Notes Category Not es Skin problems Location: B/L Treatments: medication ( Lac Hyd rin) Medication [...] a moccasin fashion, no fissure(s) present, B/L Ophthalmology Referral DIABETES EYE EXAM Diabeti c Retinopathy Screening:: Yes Findings of Diabetic Eye Exam:: no retin [...]
[2024-11-19 12:54] VITALS: BMI 26.2
== END 2024-11-17 13:13 | disposition home or self-care (01) ==
PROVIDERS: PCP Internal Medicine; Visit Provider Dietitian, Registered
DX: E11.22 Type 2 diabetes mellitus with diabetic chronic kidney disease (principal); N18.4 Chronic kidney disease, stage 4 (severe)

== ENCOUNTER → 2024-11-17 12:15 | Outpatient (BNVA) | payer OTHER, SELFPAY | PROVIDERS: PCP Internal Medicine; Visit Provider Dietitian, Registered | DX: E11.22 Type 2 diabetes mellitus with diabetic chronic kidney disease (principal); N18.4 Chronic kidney disease, stage 4 (severe) | CPT/HCPCS: 97802 ==

== ENCOUNTER 2024-11-21 10:40 | Outpatient (AMB) | payer OTHER, SELFPAY ==
[2024-11-21 10:50] VITALS: BP 106/78; PULSE 76; O2SAT 97; BMI 26.4
--- NOTE | 2024-11-21 10:50 | MHC.PC.OV ---
Vital Signs 11/21/24 10:50 Height 5 ft Weight 135 lb 6 oz BMI 26.4 BP 106/78 Blood Pressure Location Lt brachial Position Sitting Pulse 76 Pulse Source Pulse Oximeter Pulse Oximetry (%) 97 Oxygen Delivery Method Room Air Intake Visit Reasons: 3mth f/u Loading Supervisor Required: No Accompanied by: Self / Same As Patient Allergies aspirin [Aspirin] Allergy (Severe, Verified 11/21/24 11:32) MOUTH SWELLING hydrochlorothiazide [Hydrochlorothiazide] Allergy (Intermediate, Verified 11/21/24 11:32) DROP IN BLOOD PRESSURE Penicillins [PENICILLINS] Allergy (Intermediate, Verified 11/21/24 11:32) ITCHING caffeine [Caffeine] Allergy (Mild, Verified 11/21/24 11:32) NERVOUSNESS lisinopril [Lisinopril] Allergy (Mild, Verified 11/21/24 11:32) CHANGES IN BLOOD PRESSURE ranitidine [RANITIDINE] Allergy (Mild, Verified 11/21/24 11:32) HEADACHE amlodipine [AMLODIPINE] Allergy (Unknown, Verified 11/21/24 11:32) UNKNOWN amoxicillin Allergy (Unknown, Verified 11/21/24 11:32) itching, severe with rash diclofenac Allergy (Unknown, Verified 11/21/24 11:32) Unknown escitalopram Allergy (Unknown, Verified 11/21/24 11:32) abdominal discomfort, drowsiness esomeprazole [Nexium] Allergy (Unknown, Verified 11/21/24 11:32) Unknown isosorbide [ISOSORBIDE] Allergy (Unknown, Verified 11/21/24 11:32) UNKNOWN lidocaine [Lidoderm] Allergy (Unknown, Verified 11/21/24 11:32) weakness mirtazapine Allergy (Unknown, Verified 11/21/24 11:32) Unknown nystatin Allergy (Unknown, Verified 11/21/24 11:32) rash sertraline [SERTRALINE] Allergy (Unknown, Verified 11/21/24 11:32) UNKNOWN dexlansoprazole [From DEXILANT] Adverse Reaction (Severe, Verified 11/21/24 11:32) AGITATION hydrocortisone [From Cortizone-10] Adverse Reaction (Mild, Verified 11/21/24 11:32) RAISES BLOOD SUGAR topiramate [From TOPAMAX] Adverse Reaction (Unknown, Verified 11/21/24 11:32) AGITATION From PLAVIX Allergy (Unknown, Uncoded 11/21/24 11:32) PT UNSURE OF REACTION Medical tape Allergy (Unknown, Uncoded 11/21/24 11:32) Rash Medication List - Last Reconciled 11/21/24 by Boaz Astorga MD acetaminophen (Tylenol Extra Strength) 500 mg PO .TWICE A DAY PRN alprazolam 0.5 mg PO BID PRN blood sugar diagnostic ([employer] Ultra Test strips) USE DIRECTED TO TEST BLOOD SUGAR FOUR TIMES DAILY buspirone 7.5 mg PO DAILY carvedilol 6.25 mg PO BID 90 days ciclopirox 0.77% 1 applic topical BID clotrimazole-betamethasone 1-0.05 % 1 appl topical BID PRN compr.stocking,knee,long,large As directed [gloves As directed] [incontinent liners As directed] lancets ([employer] Delica Plus Lancet) USE FOUR TIMES DAILY methylcellulose (laxative) (Citrucel) 500 mg PO DAILY multivit with min-folic acid 200 mcg (Adult Multivitamin Gummies) 1 tab PO DAILY pantoprazole 40 mg PO DAILY propylene glycol 0.6% (Systane Balance) 1 drp ophthalmic (eye) BID PRN rosuvastatin 40 mg PO DAILY 90 days semaglutide (Ozempic) 0.5 mg subcut QWEEK sennosides 17.2 mg (2 x 8.6 mg) PO DAILY spironolactone (Aldactone) 25 mg PO BEDTIME 90 days Tobacco use date assessed: 11/21/24 Fall risk assessment: No Falls in past year Last assessed Fall Risk: 11/21/24 Dental Screening Dental Screen Date: 11/21/24 Did you have a dental visit in the last 12 months?: Yes Did you have a dental problem in the last 6 months where you did not have access to dental care?: No Was dental information given to patient?: Patient has dentist HPI 3mth f/u HPI Details Patient comes in today for her follow up visit States that she feels okay Relates (+) fatigue but denies any headaches or dizziness She denies any chest pains, no increased SOB No nausea/vomiting, no abdominal pain No change in bowel habits noted Patient needs her Lotrisone cream and lancets and test strips Rx refilled She had her follow up labs done a few weeks ago - to discuss her results [facility] Medical History Type 2 diabetes mellitus with chronic kidney disease Chronic kidney disease, stage 4 (severe) Type 2 diabetes mellitus Obesity Skin abrasion HARRIET (renal artery stenosis) Left bundle branch block Nonischemic cardiomyopathy Urinary incontinence GERD (gastroesophageal reflux disease) COVID-19 Pneumonia due to COVID-19 virus Vertigo Obesity (BMI 30-39.9) Depression Anxiety Stasis edema of both lower extremities Cardiomyopathy Pure hypercholesterolemia Hyperkalemia Renal artery stenosis Benign essential hypertension Conjunctival hemorrhage of right eye Surgical History Hx of colonoscopy Hx of myomectomy History of cataract surgery History of lumpectomy of left breast History of cholecystectomy Family History Father CVD (cardiovascular disease) Myocardial infarction Mother Myocardial infarction CVD (cardiovascular disease) Brother Myocardial infarction Family/Other FH: prostate cancer Social History Household Members: None Housing: Apartment Do you presently have visiting nurse or other home services: No Alcohol intake: never Patient Tobacco Use Status: Former Tobacco user Tobacco use type: Cigarette e-Cigarette/Vaping Use: Never Used Second Hand Smoke Exposure: No Advance Directives Date on File: 08/06/21 service: No Current occupational status: disabled Cognitive needs: No Hearing needs: No Vision needs: Yes Questionnaire PHQ-9 Over the last 2 weeks, how often have you been bothered by any of the following problems? 1. Little interest or pleasure in doing things: not at all 2. Feeling down, depressed, or hopeless: not at all 3. Trouble falling or staying asleep, or sleeping too much: not at all 4. Feeling tired or having little energy: not at all 5. Poor appetite or overeating: not at all 6. Feeling bad about yourself - or that you are a failure or have let yourself or your family down: not at all 7. Trouble concentrating on things, such as reading the newspaper or watching television: not at all 8. Moving or speaking so slowly that other people could have noticed. Or the opposite - being so fidgety or restless that you have been moving around a lot more than usual: not at all 9. Thoughts that you would be better off or of hurting yourself in some way: not at all Total score: 0 Depression Screening Interpretation: Negative Depression Screening Done: Yes 20500 - PHQ-9 Billing: Yes Source: Developed by Drs. Kayden Gonzalez, Alka Silver, Harjit Rush and colleagues, with an educational vlad from [employer]. Thrive Questionnaire Date Thrive assessed: 11/21/24 I am a: Patient What is your living situation today?: I have a steady place to live Within the past 12 months, did the food you bought not last and you didn't have the money to get more?: Never true Within the past 12 months, did you worry whether your food would run out before you got money to buy more?: Never true Do you have trouble paying for medicines?: No Do you have trouble getting transportation to medical appointments?: No Do you have trouble paying your heating and electricity bill?: No Do you have trouble taking care of your child, family member or friend?: No Do you have trouble with day-to-day activities such as bathing, preparing meals, shopping, managing finances, etc.?: No Are you currently unemployed and looking for a job?: No Are you interested in more education?: No Please select the resources that you would like help with: None Currently or been in a relationship where the following occur: No concerns reported THRIVE Score: 0 AUDIT C Alcohol Use Questionnaire (AUDIT-C) 1. How often do you have a drink containing alcohol?: Never 3. How often do you have six or more drinks on one occasion?: Never Total Score: 0 Score Reviewed/Action Taken: Yes VIKRAM-7 AMB Questionnaire VIKRAM-7 Date VIKRAM - 7 assessed: 11/21/24 Feeling nervous, anxious, or on edge: 0 = Not at all Not being able to stop or control worryin = Not at all Worrying too much about different things: 0 = Not at all Trouble relaxin = Not at all Being so restless that it is hard to sit still: 0 = Not at all Becoming easily annoyed or irritable: 0 = Not at all Feeling afraid as if something awful might happen: 0 = Not at all Total VIKRAM-7 score (0-4 normal; 5-9 mild; 10-14 moderate; 15-21 severe): 0 Source: Developed by Drs. Kayden Gonzalez, Alka Silver, Harjit Rush and colleagues, with an educational vlad from [employer]. Review of Systems Const Denies chills, Reports fatigue, Denies fever(s) and Denies headache(s) ENT Denies dysphagia, Denies dizziness, Denies otalgia, Denies headache(s), Denies neck pain, Denies odynophagia and Denies sore throat Card Denies chest pain, Denies palpitations and Denies dyspnea Resp Denies chest congestion, Denies cough and Denies dyspnea GI Denies abdominal pain, Denies constipation, Denies dysphagia, Denies heartburn, Denies diarrhea, Denies nausea, Denies odynophagia and Denies vomiting Denies difficulty voiding, Denies nocturia, Denies dysuria, Reports urinary incontinence and Denies urinary urgency Musc Denies back pain and Denies neck pain Skin/Breast Denies rash Neuro Denies dizziness and Denies headache(s) Psych Reports anxiety Endo Reports fatigue and Denies palpitations Physical exam (Primary Care) Vital Signs: Last Vital Signs Pulse 76 11/21/24 10:50 BP 106/78 11/21/24 10:50 Pulse Ox 97 11/21/24 10:50 Oxygen Delivery Method Room Air 11/21/24 10:50 BMI result Body Mass Index 26.4 Tobacco/Smoking Status: Tobacco use Status Tobacco use date assessed 11/21/24 11/21/24 10:55 Patient Tobacco Use Status Former Tobacco user 11/21/24 10:55 Tobacco use type Cigarette 11/21/24 10:55 e-Cigarette/Vaping Use Never Used 11/21/24 10:55 PHQ-9: PHQ-9 Score PHQ-9: Total score 0 11/21/24 11:37 Depression Screening Interpretation: Negative Thrive Assessment: Date of Thrive Assessment Date Thrive assessed 11/21/24 11/21/24 10:55 Currently or been in a relationship where the following occur: No concerns reported Const General: no acute distress and alert HENMT Ears: TM's normal bilaterally and EAC's normal Throat: Yes posterior oropharynx normal and Yes tonsils normal (no TP congestion noted) Neck Neck: Yes supple and No lymphadenopathy Thyroid: Thyroid normal Resp Auscultation: clear to auscultation bilaterally, no rales and no wheezes Cardio Rate: regular rate Rhythm: regular rhythm Heart sounds: no murmurs GI Palpation (GI): Soft to palpation and nontender Auscultation: normal bowel sounds General: Yes no CVA tenderness Back/Spine/Pelvis Back: no CVA tenderness Thoracic/Lumbar Spine: No lumbar spinal tenderness Skin Rashes: no rashes Extrem General: Yes no clubbing, cyanosis or edema Results Reviewed Results Reviewed: Laboratory Tests 10/28/24 10/28/24 10/28/24 09:37 09:51 09:52 WBC 5.4 Hgb 12.4 Hct 38.4 Plt Count 220 Sodium 138 Potassium 4.5 Creatinine 2.84 H Estimated GFR 16 Fasting Glucose 175 H Hemoglobin A1c % 7.9 H Calcium 10.0 AST 35 H ALT 29 Triglycerides 64 Cholesterol 127 LDL Cholesterol, Calc 68 HDL Cholesterol 47 Vitamin B12 720 25-OH Vitamin D Total 45.4 TSH 2.97 Ur Specific [place] 1.010 Urine Protein 30 (1+) H Urine Glucose (UA) Negative Urine Blood Negative Urine Nitrite Negative Ur Leukocyte Esterase Negative Coding Level of Care Code Est Pt Level 4 (25086) Diagnoses Benign essential hypertension I10 Cardiomyopathy, unspecified type I42.9 Cardiomyopathy type: unspecified Renal artery stenosis I70.1 Chronic kidney disease, stage 4 (severe) N18.4 Type 2 diabetes mellitus with stage 4 chronic kidney disease, without long-term current use of insulin E11.22; N18.4 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 intermediate school teacher insulin use: without intermediate school teacher use Chronic kidney disease stage: stage 4 (severe) Pure hypercholesterolemia E78.00 Elevated TSH R79.89 Gastroesophageal reflux disease, unspecified whether esophagitis present K21.9 Esophagitis presence: esophagitis presence not specified Anxiety F41.9 Depression, unspecified depression type F32.9 Depression Type: unspecified Obesity (BMI 30-39.9) E66.9 Additional Codes PHQ-9 - 70689 - PHQ-9 Billing: Yes ([id number]) Assessment & Plan Assessment & Plan (1) Benign essential hypertension: Code(s): I10 - Essential (primary) hypertension Category: Medical Plan: Reinforced low sodium diet - goal is systolic BP of at least 130 to 140 mm or less Continue Carvedilol 6.25 mg BID and Spironolactone 25 mg Q HS; she is also on Furosemide 10 mg QD Her Losartan was discontinued previously and she has been advised NOT to start back on this due to her advanced CKD Follow up with cardiology as scheduled (2) Cardiomyopathy: Code(s): I42.9 - Cardiomyopathy, unspecified Category: Medical Qualifiers: Cardiomyopathy type: unspecified Qualified Code(s): I42.9 - Cardiomyopathy, unspecified Plan: Continue Carvedilol 6.25 mg BID Patient had a stress test and nuclear MIBI done at [facility] a couple of years ago - both tests came back normal BNP also came back normal when previously checked Follow up with cardiology as scheduled (3) Renal artery stenosis: Code(s): I70.1 - Atherosclerosis of renal artery Category: Medical Plan: She has left HARRIET (seen on renal artery doppler) and will be considered for renal angioplasty if necessary, although a more recent renal US done in May 2024 revealed no HARRIET Her BP appears to have improved a lot with the addition of Spironolactone Will continue to observe and monitor her blood pressure regularly for now Follow up with nephrology (Dr. Madrigal) as scheduled (4) Chronic kidney disease, stage 4 (severe): Code(s): N18.4 - Chronic kidney disease, stage 4 (severe) Category: Medical Plan: Patient's serum creatinine and GFR/renal function appear stable on her recent labs - will continue to monitor her GFR and serum creatinine closely Follow up with nephrology (Dr. Madrigal) as scheduled - nephrology recommended adding an SGLT-2 inhibitor; Metformin has since been discontinued Patient has been seeing [facility] for management of her diabetes but have advised her to try going to [facility] Endocrinology instead to help improve her continuity of care - referral to [facility] Endocrinology placed (5) Type 2 diabetes mellitus with chronic kidney disease: Code(s): E11.22 - Type 2 diabetes mellitus with diabetic chronic kidney disease Category: Medical Qualifiers: 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 half-way insulin use: without intermediate school teacher use Chronic kidney disease stage: stage 4 (severe) Qualified Code(s): E11.22 - Type 2 diabetes mellitus with diabetic chronic kidney disease; N18.4 - Chronic kidney disease, stage 4 (severe) Plan: Her HgbA1c was again at 7.9% on her labs done a couple of weeks ago; was previously at 7.9% a few months ago - goal is <7.0% Reinforced diabetic diet Her Metformin ER 500 mg QD has been discontinued due to her advanced CKD Continue Ozempic 0.5 mg once a week; we tried going up to 1 mg on her Rx but she experienced increased dizziness on the 1 mg dose and this was lowered back to 0.5 mg once a week Her Glimepiride 1 mg Q AM and Januvia were also previously stopped due to hypoglycemia Nephrology recommended adding an SGLT-2 inhibitor and will likely start patient on this at her next follow up visit She was going to [facility] for management of her diabetes but will try referring her here to [facility] Endocrinology for her diabetes to help improve her continuity of care (6) Pure hypercholesterolemia: Code(s): E78.00 - Pure hypercholesterolemia, unspecified Category: Medical Plan: Results of her labs done a few weeks ago reviewed and discussed with patient Reinforced low cholesterol diet Continue Atorvastatin 80 mg QD Will recheck her labs and fasting lipids in 3 months for follow up (7) Elevated TSH: Code(s): R79.89 - Other specified abnormal findings of blood chemistry Category: Medical Plan: Her TSH remains normal on her recent labs Her free T4 and T3 levels were normal and TPO Ab level was high when previously checked, suggesting possible Pb's Patient currently appears clinically euthyroid Will continue to monitor her TFTs regularly (8) GERD (gastroesophageal reflux disease): Code(s): K21.9 - Gastro-esophageal reflux disease without esophagitis Category: Medical Qualifiers: Esophagitis presence: esophagitis presence not specified Qualified Code(s): K21.9 - Gastro-esophageal reflux disease without esophagitis Plan: Dietary restrictions reinforced Her Pantoprazole was lowered by GI recently to 20 mg QD Follow up with GI as scheduled (9) Anxiety: Code(s): F41.9 - Anxiety disorder, unspecified Category: Medical Plan: Continue Buspirone 7.5 mg QD and Alprazolam 0.5 mg BID PRN Follow up with psychiatry as scheduled (10) Depression: Code(s): F32.9 - Major depressive disorder, single episode, unspecified Category: Medical Qualifiers: Depression Type: unspecified Qualified Code(s): F32.9 - Major depressive disorder, single episode, unspecified Plan: Follow up with psychiatry as scheduled - patient goes to [facility] (11) Obesity (BMI 30-39.9): Code(s): E66.9 - Obesity, unspecified Category: Medical Plan: Reinforced diet; exercise and weight loss are unrealistic given patient's multiple comorbidities and limited activity tolerance as well as her gait instability Plan Follow up in 3 months Orders: Orders Lipid Panel 3 Months E78.00 - Pure hypercholesterolemia, unspecified Complete Blood Count Auto Diff 3 Months D64.9 - Anemia, unspecified UA CC w/rflx Micro + Cult 3 Months R30.0 - Dysuria Microalbumin, Random (w Creat) 3 Months E11.9 - Type 2 diabetes mellitus without complications Vitamin B12 and Folate 3 Months E53.8 - Deficiency of other specified B group vitamins Vitamin D 25-OH Total 3 Months E55.9 - Vitamin D deficiency, unspecified Hemoglobin A1c 3 Months E11.9 - Type 2 diabetes mellitus without complications Comprehensive [place]. Panel Fast 3 Months E78.00 - Pure hypercholesterolemia, unspecified TSH reflex Free T4 3 Months E78.00 - Pure hypercholesterolemia, unspecified Referrals Endocrinology Referral E11.22 - Type 2 diabetes mellitus with diabetic chronic kidney disease, N18.4 - Chronic kidney disease, stage 4 (severe) Medications: Refilled lancets ([employer] Delica Plus Lancet) USE FOUR TIMES DAILY 200 ea 5RF E11.9 - Type 2 diabetes mellitus without complications clotrimazole-betamethasone 1-0.05 % 1 appl topical BID PRN 30 grams 2RF rash I87.2 - Venous insufficiency (chronic) (peripheral) blood sugar diagnostic ([employer] Ultra Test strips) USE DIRECTED TO TEST BLOOD SUGAR FOUR TIMES DAILY 100 strips 5RF E11.9 - Type 2 diabetes mellitus without complications
--- OUTSIDE RECORDS SUMMARY | 2024-11-21 11:22 | XMS_ITS | Clinical Summary ---
Author Organization [facility] Address [address] [place] [address] Phone Care Team Providers Care [facility] [employer] Name Role Phone Boaz Astorga MD Primary Care Provider [phone] Allergies Active Allergy Reactions Criticality Noted Date [...] age to complete this topic Insurance [employer] [facility] ([id number]) [employer] [facility] ([id number]) Care Teams Lab[facility] [employer] Relationship Specialty Start Date End Date Boaz Astorga MD [address] [place] [address] PCP - General 11/01/20
== END 2024-11-21 11:46 | disposition home or self-care (01) ==
PROVIDERS: PCP Internal Medicine; Visit Provider Internal Medicine
DX: I12.9 Hypertensive chronic kidney disease with stage 1 through stage 4 chronic kidney disease, or unspecified chronic kidney disease (principal); I42.9 Cardiomyopathy, unspecified; I70.1 Atherosclerosis of renal artery; N18.4 Chronic kidney disease, stage 4 (severe); E11.22 Type 2 diabetes mellitus with diabetic chronic kidney disease; E78.00 Pure hypercholesterolemia, unspecified; R79.89 Other specified abnormal findings of blood chemistry; K21.9 Gastro-esophageal reflux disease without esophagitis; F41.9 Anxiety disorder, unspecified; F32.9 Major depressive disorder, single episode, unspecified; E66.9 Obesity, unspecified

== ENCOUNTER → 2024-11-21 10:40 | Outpatient (BNVA) | payer OTHER, SELFPAY | PROVIDERS: PCP Internal Medicine; Visit Provider Internal Medicine | DX: I10 Essential (primary) hypertension (principal); I70.1 Atherosclerosis of renal artery; I42.9 Cardiomyopathy, unspecified; E11.22 Type 2 diabetes mellitus with diabetic chronic kidney disease; N18.4 Chronic kidney disease, stage 4 (severe); E78.00 Pure hypercholesterolemia, unspecified; K21.9 Gastro-esophageal reflux disease without esophagitis; R79.89 Other specified abnormal findings of blood chemistry; F41.9 Anxiety disorder, unspecified; F32.9 Major depressive disorder, single episode, unspecified; E66.9 Obesity, unspecified | CPT/HCPCS: 96127; 99212 ==

== ENCOUNTER 2024-12-09 12:48 | Outpatient (AMB) | payer OTHER, SELFPAY ==
--- NOTE | 2024-12-09 08:09 | A.OFFVIS_ITS ---
Intake Vital Signs 12/09/24 12:52 Height 5 ft Weight 137 lb 5.568 oz BMI 26.8 BP 140/70 H Blood Pressure Location Rt brachial Position Sitting Pulse 58 Pulse Source Pulse Oximeter Pulse Oximetry (%) 96 Oxygen Delivery Method Room Air Intake Visit Reasons: Type 2 diabetes mellitus with diabetic chronic ki Intake Note: Patient present today for Type 2 Diabetes Mellitus Last Diabetic eye exam: 01/2024 Last Podiatry Visit: 08/2024 Random Glucose: 178 mg/dl HgA1C: 7.9% 10/28/24 Cabin Supervisor Required: No Accompanied by: Self / Same As Patient Allergies aspirin [Aspirin] Allergy (Severe, Verified 12/09/24 13:02) MOUTH SWELLING hydrochlorothiazide [Hydrochlorothiazide] Allergy (Intermediate, Verified 12/09/24 13:02) DROP IN BLOOD PRESSURE Penicillins [PENICILLINS] Allergy (Intermediate, Verified 12/09/24 13:02) ITCHING caffeine [Caffeine] Allergy (Mild, Verified 12/09/24 13:02) NERVOUSNESS lisinopril [Lisinopril] Allergy (Mild, Verified 12/09/24 13:02) CHANGES IN BLOOD PRESSURE ranitidine [RANITIDINE] Allergy (Mild, Verified 12/09/24 13:02) HEADACHE amlodipine [AMLODIPINE] Allergy (Unknown, Verified 12/09/24 13:02) UNKNOWN amoxicillin Allergy (Unknown, Verified 12/09/24 13:02) itching, severe with rash diclofenac Allergy (Unknown, Verified 12/09/24 13:02) Unknown escitalopram Allergy (Unknown, Verified 12/09/24 13:02) abdominal discomfort, drowsiness esomeprazole [Nexium] Allergy (Unknown, Verified 12/09/24 13:02) Unknown isosorbide [ISOSORBIDE] Allergy (Unknown, Verified 12/09/24 13:02) UNKNOWN lidocaine [Lidoderm] Allergy (Unknown, Verified 12/09/24 13:02) weakness mirtazapine Allergy (Unknown, Verified 12/09/24 13:02) Unknown nystatin Allergy (Unknown, Verified 12/09/24 13:02) rash sertraline [SERTRALINE] Allergy (Unknown, Verified 12/09/24 13:02) UNKNOWN dexlansoprazole [From DEXILANT] Adverse Reaction (Severe, Verified 12/09/24 13:02) AGITATION hydrocortisone [From Cortizone-10] Adverse Reaction (Mild, Verified 12/09/24 13:02) RAISES BLOOD SUGAR topiramate [From TOPAMAX] Adverse Reaction (Unknown, Verified 12/09/24 13:02) AGITATION From PLAVIX Allergy (Unknown, Uncoded 12/09/24 13:02) PT UNSURE OF REACTION Medical tape Allergy (Unknown, Uncoded 12/09/24 13:02) Rash HPI HPI Comments History of Present Illness Details [age] YO female who is seen in consultation for T2DM at the request of PCP. Most recent A1c 11/05/24 7.9 %, 12/09/2019 7.5% Initially diagnosed with T2DM: had gestational diabetes developed in her 50's. Was initially started on treatment with:metformin januvia had weight gain Trulicity: not effective had side effect Gi symptoms, weakness Current regimen: Ozempic 0.5mg weekly Has been on for a few months NOt certain how long She has GERD which she believes did not worsen with Ozempic, she does report decrease appetite. She has lost 15 pounds over the past year but this does not appear to have occurred after starting Ozempic. Checks sugars daily Most readings 103-115 No recent lows Family history of T2DM in []. Has eyes checked yearly, last eye exam 01/2024 denies retinopathy. Followed by Dr. Hanna Denies neuropathy, no numbness, tinging or pain, has occasional cramping in legs. last foot exam today, sees podiatry folllowed every 2-3 months Has nephropathy, not on mar-arb (allergy). 10/28/24 eGFR 16 Has HLD, on statin Last LDL 68 as measured on 10/3024 Has cardiomyopathy followed regularly by cardiology Diet: balanced recently seen by [facility] Weight: Has lost weight No recent CDE, she declines as she has recently seen RD [facility] Medical History Type 2 diabetes mellitus with chronic kidney disease Chronic kidney disease, stage 4 (severe) Type 2 diabetes mellitus Obesity Skin abrasion HARRIET (renal artery stenosis) Left bundle branch block Nonischemic cardiomyopathy Urinary incontinence GERD (gastroesophageal reflux disease) COVID-19 Pneumonia due to COVID-19 virus Vertigo Obesity (BMI 30-39.9) Depression Anxiety Stasis edema of both lower extremities Cardiomyopathy Pure hypercholesterolemia Hyperkalemia Renal artery stenosis Benign essential hypertension Conjunctival hemorrhage of right eye Surgical History Hx of colonoscopy Hx of myomectomy History of cataract surgery History of lumpectomy of left breast History of cholecystectomy Family History Father CVD (cardiovascular disease) Myocardial infarction Mother Myocardial infarction CVD (cardiovascular disease) Brother Myocardial infarction Family/Other FH: prostate cancer Social History Household Members: None Housing: Apartment Do you presently have visiting nurse or other home services: No Alcohol intake: never Patient Tobacco Use Status: Former Tobacco user Tobacco use type: Cigarette e-Cigarette/Vaping Use: Never Used Second Hand Smoke Exposure: No Advance Directives Date on File: 08/06/21 service: No Current occupational status: disabled Cognitive needs: No Hearing needs: No Vision needs: Yes Physical Exam Vital Signs: Last Vital Signs Pulse 58 12/09/24 12:52 BP 140/70 H 12/09/24 12:52 Pulse Ox 96 12/09/24 12:52 Oxygen Delivery Method Room Air 12/09/24 12:52 BMI result Body Mass Index 26.8 Absence of Cushingoid features. Absence of acromegalic features. Neck exam reveals nl size thyroid about 15 gms. No thyroid nodules palpable. No carotid bruits present. Lungs CTA. Heart S1 S2, Reg R/R. No M/R/ G. Skin exam reveals absence of vitiligo or acanthosis nigricans. Abdominal exam reveals Soft NT/ND with NA BS. No organomegaly present. Const Other: Absence of Cushingoid features. Absence of acromegalic features. Neck exam reveals nl size thyroid about 15 gms. No thyroid nodules palpable. No carotid bruits present. Lungs CTA. Heart S1 S2, Reg R/R. No M/R G. Skin exam reveals absence of vitiligo or acanthosis nigricans. mild edema Visual exam of foot performed. No ulcerations or open lesions. No inter digit maceration or fissuring. No onychomycosis, no callouses. Sensation intact to mon ofilament exam. Vibratory sensation is normal with 128 Hz tuning fork. Neck Other: . Extrem Other: Visual exam of foot performed. No ulcerations or open lesions. No onchomycosis, no callouses.Pulses 2 + distally Sensation intact to monofilament exam. Vibratory sensation sensed is intact with 128 Hz tuning fork Assessment & Plan Assessment & Plan (1) Type 2 diabetes mellitus: Code(s): E11.9 - Type 2 diabetes mellitus without complications Qualifiers: Chronic kidney disease stage: stage 4 (severe) 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 complication detail: with chronic kidney disease 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 complication status: with kidney complications 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 assisted insulin use: without buttermaker use Qualified Code(s): E11.22 - Type 2 diabetes mellitus with diabetic chronic kidney disease; N18.4 - Chronic kidney disease, stage 4 (severe) Plan: 79-year-old type 2 diabetic with a advanced CKD EGFR 16 with no recent fructosamine. Hgb A1C of 7.9% may not be an accurate indicator of glycemic control due to advanced CKD. She is concerned about the weight loss. She has a prior history of GERD which has not increased since starting Ozempic. We will stop Ozempic and changed to Tradjenta. She reports a history of adhesive allergy and declines any sensor trial. I will see her back in several months' time and can check a fructosamine level. Given her advanced age and cardiac/renal comorbidities an A1c of 8-8.5% would be appropriate. The patient had an opportunity to ask questions regarding treatment plan. The patient expressed understanding and agreement with the above treatment plan. The patient is aware they should contact our office by phone for worsening glucose readings or for any low blood sugars which may warrant a change in diabetes medication. Compliance is encouraged with medications and any followup testing/consults which may have been ordered. Orders: Orders Fructosamine 7 Weeks E11.22 - Type 2 diabetes mellitus with diabetic chronic kidney disease, N18.4 - Chronic kidney disease, stage 4 (severe) Medications: New linagliptin (Tradjenta) 5 mg PO DAILY 30 days 30 tabs 1RF Patient Instructions: Take 15 carb carbohydrate grams to treat a low sugar (3-4 glucose tablets, half a glass of juice or 15 carbohydrate grams of soft candy such as gummie snacks). Recheck your sugar in 15 minutes and re-treat again with 15 carbohydrate grams if low or still with symptoms. Do not drive a car or operate machinery if you do not know what your blood sugar is, if it is low or in excess of 300. No NSAIDs Avoidance of acute kidney injury; should have low threshold of going to the ER with any diarrheal or vomiting illness to prevent BELLO on top of stage IV CKD Check your feet daily looking for any signs of infection, drainage, redness, ulceration and seek medical attention if this occurs. Break in shoes gradually and do not wear open-toed shoes or walk stocking footed or barefooted. Coding Level of Care Code Medicare First (G0438) Diagnoses Type 2 diabetes mellitus with stage 4 chronic kidney disease, without long-term current use of insulin E11.22; N18.4 Chronic kidney disease stage: stage 4 (severe) 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 complication detail: with chronic kidney disease 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 complication status: with kidney complications 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 buttermaker insulin use: without assisted use Time Spent (min) 53 Comment Time spent reviewing labs/provider notes, face to face, chart doc
[2024-12-09 12:52] VITALS: BP 140/70; PULSE 58; O2SAT 96; BMI 26.8
[2024-12-09 13:08] LABS: Glucose, Whole Blood 178 mg/dL (60-115)
--- OUTSIDE RECORDS SUMMARY | 2024-12-09 13:39 | XMS_ITS ---
Author Organization [facility] Chicho cespedes Casar Address [address] [place] [address] Care Team Providers Care Senior Project Manager Name Role Phone Rizwan SORENSON [place] Primary Care Provider Yarely Medina Unavailable [phone] REASON FOR VISIT same day cancel Encounters Encounter Location Date Provider Diagnosis [facility] [address] [place] [address] 12/02/2024 Yarely Gibbs Plan Of Treatment Next Appt Details Provider Name:Yarely puckett, 02/18/2025 11:30:00 AM, [address] [place], [address], Progress Notes * Alicia DUONGDOB:1945 (79 yo F)Acc No.[id number]:12/02/2024 Patient:?Alicia DUONG :1945???Age:79 Y???Sex:Female Address:[address], [place], [address] * * Date:?
--- OUTSIDE RECORDS SUMMARY | 2024-12-09 13:39 | XMS_ITS | Clinical Summary ---
Author Organization [facility] Address [address] [place] [address] Phone Care Team Providers Care Wind Tunnel Mechanic Name Role Phone Boaz Astorga MD Primary Care Provider [phone] Allergies Active Allergy Reactions Criticality Noted Date [...] age to complete this topic Insurance JALIL Scancell [facility] ([id number]) LEE Scancell [facility] ([id number]) Care Teams Wind Tunnel Mechanic Relationship Specialty Start Date End Date Boaz Astorga MD [address] [place] [address] PCP - General 11/01/20
--- OUTSIDE RECORDS SUMMARY | 2024-12-09 13:39 | XMS_ITS ---
Author Organization [facility] Address [address] [place] [address] Care Team Providers Care Technician Automated Equipment Name Role Phone Boaz Astorga MD Primary Care Provider Yarely Medina Unavailable [phone] Allergies Allergen (clinical drug ingredient) Drug/Non Drug [...] Orally Twi ce a day Active Nystatin 211913 UNIT/GM 1 application Externally Twice a day [...] 024 Encounters Encounter Location Date Provider Diagnosis [facility] [place] [address] [place] [address] 09/17/2024 Yarely Gibbs Tinea pedis of both [...] 30 days Mupirocin 2 % 1 application Computational Physicist ally Twice a day as neede to any open sores for 30 days 04/04/2022 Ketoconazole 2 % 1 application Computational Physicist ally Twice a day for 30 days 06/06/2023 Next Appt Details Follow Up: 2 Months, Reason: Provider Name:Yarely puckett, 02/18/2025 11:30:00 AM, [address] [place], [address], Procedure Notes * Category Sub-Category Detail Notes [...] use of a nail nipper and/or dremel-type pigment grinder, to a more viable healthy nail [...] to maintain effectiveness in symptomatic relief - 30919 Keratoma Treatment Parring or Cutting o f Benign Hyperkeratotic Lesion(s) (-57) More than 4 Lesions - The Benign hyperkeratotic lesions, ( 6) in total, locations as stated and described in exam, were pared, and/or cut utilizing a sterile 15 blade, tissue nippers, and/or power dremel instrumentation - 70604 Progress Notes * Alicia DUONGDOB:1945 (79 yo F)Acc No.[id number]:09/17/2024 Progress Note Patient:?Alicia DUONG Provider:?Yarely Gibbs DPM :1945???Age:78 Y???Sex:Female D ate:09/17/2024 Address:[address] [place] [address] Pcp:Boaz Astorga MD Subjective: * Chief Complaints: [...] lumpectomy cataracts Fibroid * [place]/Major Diagno stic [place] [place] - water pill stayed 2 days 03[place]07[place] [place]- 2 days - changed water [...] Externally as needed Twice a day Nystatin 680907 UNIT/GM Cream 1 application Externally Twice a [...] as needed Twice a day Not-Taking/PRN Nystatin 547171 UNIT/GM Cream 1 application Externally Twice a day Not-Taking/PRN Ciclopirox Olamine 0.77 % Cream 1 application to affected area Externally to feet Twice a day Medication List reviewed and reconciled with the patient * Allergies:?AspirinAmoxicillinAdhesiveLisinoprilHydrochlorothiazideCortisoneAmlod ipineIsosorbide DinitrateRanitidine 75NexiumCaffeineTopamaxDexilantSertralineDiclofenacEscitalopram OxalateMirtazapineNystatinWater Pills: Low blood pressure - Side EffectsBactrim: kidney issuesyes[Allergies Verified] Objective: * Vitals:?Ht: 5 ft, Wt: 143, B MO: 27.92, Shoe size: 8W, BP: 122/76`, BS: [...] T3, T4, T6, T7, T8, T9.?Vascular: ?DP PULSES (B):? 0/4, B/L.?PT PULSES (B):? 0/4, B/L.?CAPILLARY FILL TIME:? delayed, all digits, B/L.?TEMPERTURE GRADIENT (C):? decreased, cool to cool, proximal to distal, B/L.?General Examination: ?FOOT EXAM:?Footwear Evaluation?Orthopedic: ?FOOTWEAR:?fair condition.? Assessment: * Assessment: 1.?Type 2 diabetes mellitus [...] use of a nail nipper and/or dremel-type pigment grinder, to a more viable healthy nail [...] to maintain effectiveness in symptomatic relief - 56247.?Keratoma Treatment:?Parring or Cutting of Benign Hyperkeratotic Lesion(s)?(-57) More than 4 Lesions - The Benign hyperkeratotic lesions, ( 6) in total, locations as stated and described in exam, were pared, and/or cut utilizing a sterile 15 blade, tissue nippers, and/or power dremel instrumentation - 53232.? * Procedure Codes:?08668 DEBRI DE NAIL, 6 OR MORE, Modifiers: XS 76249 TRIM SKIN LESIONS, OVER 4, Modifiers: XS [...] patient has decided to continue Am Lactin.? ??Screening/Special Tests:?Fall Risk?Assessment:?Performed ?Screening:?No falls in the past year ?FALLS: Screening for Future Fall Risk?Have you had two or more falls in the past year??No ?Have you had any falls with injury in the past year??No * Follow Up:?2 Months * Images: * Sign off status: Completed true * Provider:?Yarely Gibbs DPM Date:? Generated for Mary Ann baca/Suzy/Ventura on:?12/09/2024 01:39 PM EST History and Physical Notes * [...] a stocking fashion, no fissure(s) present, B/L Orthopedic FOOTWEAR: fair condition General Examination FOOT EXAM: Lower Extrem ity Neurological Exam performed:: Yes Visual exam of foot performed:: Yes Date: 09/17/2024 Footwear Evaluation Footwear Evaluation performe d:: Yes Ophthalmology Referral DIABETES EYE EXAM Procedure Perform ed:: Yes ?Date of Exam Performed: 10/22/2023 Findings [...]
--- OUTSIDE RECORDS SUMMARY | 2024-12-09 13:39 | XMS_ITS ---
Author Organization [facility] Address [address] [facility] [address] Care Team Providers Care Termite Technician Name Role Phone Boaz Astorga MD Primary Care Provider Yarely Medina Unavailable [phone] Medications Medication SIG (Take, Route, Frequency, Duration) [...] day for 30 days 06/06/2023 Active Nystatin 163753 UNIT/GM 1 application Externally Twice a day [...] Active Encounters Encounter Location Date Provider Diagnosis [facility] [address] [address] 12/02/2024 Yarely Gibbs Plan Of Treatment Next Appt Details Provider Name:Yarely puckett, 02/18/2025 11:30:00 AM, [address] [place] [address], [address], Progress Notes * Alicia DUONGDOB:1945 (79 yo F)Acc No.[id number]:12/02/2024 Progress Note Patient:?Alicia DUONG Provider:?Yarely Gibbs DPM :1945???Age:79 Y???Sex:Female D ate:12/02/2024 Address:[address] [place], [place] [address] Pcp:Boaz Astorga MD Subjective: * Chief Complaints: * ??? * HPI: ???At Risk footcare:?Pt States Last PCP Visit:?Date?01/11/2024 * Medical History:? * Medications:?Taking Ozempic , Taking ALPRAZolam 0.25 MG Tablet [...] needed Twice a day , Not-Taking/PRN Nystatin 584449 UNIT/GM Cream 1 application Externally Twice a day , Not-Taking/PRN Ciclopirox Olamine 0.77 % Cream 1 application to affected area Externally to feet Twice a day Objective: * Vitals:? Assessment: Plan: * Treatment: * Images: * The named appointment provid er may or may not be the originator of this progress note, and it is not deemed complete until electronically signed by the appointment provider. Sign off status: Pending * Provider:Shanel Gibbs DPM Date:?08/2025 Generated for Mary Ann baca/Suzy/Ventura on:?12/09/2024 01:39 PM EST History and Physical Notes * HPI (History of Present Illness) Category Sub-Category Detail Notes Category Not es At Risk footcare Pt States Last PCP Visit: Date: 4
--- OUTSIDE RECORDS SUMMARY | 2024-12-09 13:40 | XMS_ITS | Continuity of Care Document ---
Author Organization [facility] [address] [place] [address] Phone [phone] Care Team Providers Care Lacemaker Name Role Phone Boaz Astorga Care Team Information Manager Product [phone] Problems Active Problems Provider Date Anxiety Ricci [...] 02/08/2024 Clotrimazole/Betameth asone Dipropionate1-0.05% Cream Aplique Al [place] Afectada Topically Dos Veces Al D A [place] Necesario For Bola Rizwan, Boaz Rosuvastatin Sufqpai53mt Tablets [place] Sejal Tableta Todos Los D as Rizwan, Boaz Alprazolam0.5mg Tablets [place] Sejal Tableta Dos Veces Al D A [place] Necesario Unknown Pantoprazole Mrtean71im Tablets DR [place] Sejal Tableta Todos Los D as Rizwan, Boaz Buspirone HCL7.5mg Tablets [place] Sejal Tableta Todos Los D as Unknown Onetouch Delica Plus Lancets Extra Fine 33GPlus 33G Misc Use Four Times Daily Rizwan, Boaz Usxcgalgbijsjv42mt Tablets [place] Sejal Tableta Todos Los D as Al Acostarse Rizwan, [place] Onetouch UltraStrips Use as Directed To Test Blood Sugar Four Times Daily Rizwan, Boaz Carvedilol6.25mg Tablets [place] Sejal Tableta Dos Veces Al D A Rizwan, [place] Vital Signs Date Vital Result Comment 05/09/2024 [...] AGUSTIN Lynch Plan of Treatment Future Appointment(s):* 01/27/2025 10:45 am - AGUSTIN Lynch at Main Office 05/09/2024 - AGUSTIN Lynch* E11.9 Type 2 diabetes mellitus without complications * E78.00 Hypercholesterolemia Functional Status Description No Information Available Mental Status Description No Information Available Referrals Refer to Reason for Referral Status Appt Ricci Carrion M.D. Created [address] [place] [address] Drive [address] [place] [address] [phone]
== END 2024-12-09 13:46 | disposition home or self-care (01) ==
PROVIDERS: PCP Internal Medicine; Visit Provider Nurse Practitioner Adult Health
DX: E11.22 Type 2 diabetes mellitus with diabetic chronic kidney disease (principal); N18.4 Chronic kidney disease, stage 4 (severe)
CPT/HCPCS: 99204

== ENCOUNTER → 2024-12-09 12:48 | Outpatient (BNVA) | payer OTHER, SELFPAY | PROVIDERS: PCP Internal Medicine; Visit Provider Nurse Practitioner Adult Health | DX: E11.22 Type 2 diabetes mellitus with diabetic chronic kidney disease (principal); N18.4 Chronic kidney disease, stage 4 (severe); Z79.84 Long term (current) use of oral hypoglycemic drugs | CPT/HCPCS: 82947; 99202 ==

== ENCOUNTER 2024-12-25 12:00 | Outpatient (AMB) | payer OTHER, SELFPAY ==
[2024-12-25 12:29] VITALS: BP 120/64; PULSE 72; BMI 26.6
--- NOTE | 2024-12-25 12:29 | A.OFFVIS_ITS ---
Vital Signs 12/25/24 12:29 Height 5 ft Weight 136 lb BMI 26.6 BP 120/64 Blood Pressure Location Lt brachial Position Sitting Pulse 72 Pulse Source Monitor Intake Visit Reasons: 1 yr f/up Cook Pickled Meat Required: No Accompanied by: Self / Same As Patient Allergies aspirin [Aspirin] Allergy (Severe, Verified 12/09/24 13:02) MOUTH SWELLING hydrochlorothiazide [Hydrochlorothiazide] Allergy (Intermediate, Verified 12/09/24 13:02) DROP IN BLOOD PRESSURE Penicillins [PENICILLINS] Allergy (Intermediate, Verified 12/09/24 13:02) ITCHING caffeine [Caffeine] Allergy (Mild, Verified 12/09/24 13:02) NERVOUSNESS lisinopril [Lisinopril] Allergy (Mild, Verified 12/09/24 13:02) CHANGES IN BLOOD PRESSURE ranitidine [RANITIDINE] Allergy (Mild, Verified 12/09/24 13:02) HEADACHE amlodipine [AMLODIPINE] Allergy (Unknown, Verified 12/09/24 13:02) UNKNOWN amoxicillin Allergy (Unknown, Verified 12/09/24 13:02) itching, severe with rash diclofenac Allergy (Unknown, Verified 12/09/24 13:02) Unknown escitalopram Allergy (Unknown, Verified 12/09/24 13:02) abdominal discomfort, drowsiness esomeprazole [Nexium] Allergy (Unknown, Verified 12/09/24 13:02) Unknown isosorbide [ISOSORBIDE] Allergy (Unknown, Verified 12/09/24 13:02) UNKNOWN lidocaine [Lidoderm] Allergy (Unknown, Verified 12/09/24 13:02) weakness mirtazapine Allergy (Unknown, Verified 12/09/24 13:02) Unknown nystatin Allergy (Unknown, Verified 12/09/24 13:02) rash sertraline [SERTRALINE] Allergy (Unknown, Verified 12/09/24 13:02) UNKNOWN dexlansoprazole [From DEXILANT] Adverse Reaction (Severe, Verified 12/09/24 13:02) AGITATION hydrocortisone [From Cortizone-10] Adverse Reaction (Mild, Verified 12/09/24 13:02) RAISES BLOOD SUGAR topiramate [From TOPAMAX] Adverse Reaction (Unknown, Verified 12/09/24 13:02) AGITATION From PLAVIX Allergy (Unknown, Uncoded 12/09/24 13:02) PT UNSURE OF REACTION Medical tape Allergy (Unknown, Uncoded 12/09/24 13:02) Rash Medication List - Last Reconciled 12/25/24 by Juve Alcazar MD acetaminophen (Tylenol Extra Strength) 500 mg PO .TWICE A DAY PRN alprazolam 0.5 mg PO BID PRN blood sugar diagnostic (Idoobleuch Ultra Test strips) USE DIRECTED TO TEST BLOOD SUGAR FOUR TIMES DAILY buspirone 7.5 mg PO DAILY carvedilol 6.25 mg PO BID 90 days ciclopirox 0.77% 1 applic topical BID clotrimazole-betamethasone 1-0.05 % 1 appl topical BID PRN compr.stocking,knee,long,large As directed [gloves As directed] [incontinent liners As directed] lancets ([employer]2Touch Delica Plus Lancet) USE FOUR TIMES DAILY linagliptin (Tradjenta) 5 mg PO DAILY 30 days methylcellulose (laxative) (Citrucel) 500 mg PO DAILY multivit with min-folic acid 200 mcg (Adult Multivitamin Gummies) 1 tab PO DAILY pantoprazole 40 mg PO DAILY propylene glycol 0.6% (Systane Balance) 1 drp ophthalmic (eye) BID PRN rosuvastatin 40 mg PO DAILY 90 days sennosides 17.2 mg (2 x 8.6 mg) PO DAILY spironolactone (Aldactone) 25 mg PO BEDTIME 90 days HPI Comments Details: Alicia returns for follow-up regarding nonischemic cardiomyopathy as well as hypertension. To recall, she has very labile hypertension, compounded by anxiety. Overall, blood pressure actually been quite stable these days. No recent major concerns. [facility] Medical History (Updated 12/25/24 @ 12:50 by Juve Alcazar MD) Left bundle branch block Type 2 diabetes mellitus with chronic kidney disease Chronic kidney disease, stage 4 (severe) Type 2 diabetes mellitus Obesity Skin abrasion HARRIET (renal artery stenosis) Nonischemic cardiomyopathy Urinary incontinence GERD (gastroesophageal reflux disease) COVID-19 Pneumonia due to COVID-19 virus Vertigo Obesity (BMI 30-39.9) Depression Anxiety Stasis edema of both lower extremities Cardiomyopathy Pure hypercholesterolemia Hyperkalemia Renal artery stenosis Benign essential hypertension Conjunctival hemorrhage of right eye Surgical History Hx of colonoscopy Hx of myomectomy History of cataract surgery History of lumpectomy of left breast History of cholecystectomy Family History Father CVD (cardiovascular disease) Myocardial infarction Mother Myocardial infarction CVD (cardiovascular disease) Brother Myocardial infarction Family/Other FH: prostate cancer Social History Household Members: None Housing: Apartment Do you presently have visiting nurse or other home services: No Alcohol intake: never Patient Tobacco Use Status: Former Tobacco user Tobacco use type: Cigarette e-Cigarette/Vaping Use: Never Used Second Hand Smoke Exposure: No Advance Directives Date on File: 08/06/21 service: No Current occupational status: disabled Cognitive needs: No Hearing needs: No Vision needs: Yes Review of Systems Const Denies chills, Denies fatigue, Denies fever(s), Denies frequent falls, Denies weakness, Denies weight gain and Denies weight loss ENT Denies dizziness Card Denies chest pain, Denies leg edema, Denies lightheadedness, Denies palpitations, Denies dyspnea and Denies dyspnea on exertion Resp Denies cough, Denies dyspnea and Denies dyspnea on exertion GI Denies hematochezia Musc Denies abnormal gait, Denies muscle weakness, Denies numbness, Denies radiating pain into limb and Denies tingling Neuro Denies abnormal gait, Denies dizziness, Denies frequent falls, Denies numbness, Denies tingling and Denies weakness Endo Denies fatigue and Denies palpitations Physical Exam Vital Signs: Last Vital Signs Pulse 72 12/25/24 12:29 BP 120/64 12/25/24 12:29 BMI result Body Mass Index 26.6 Const General: comfortable and no acute distress Orientation/consciousness: patient oriented x3 HEENT Other: Unremarkable Head: Yes normal to inspection Neck Neck: Yes normal visual inspection Chest Chest palpation & inspection: normal inspection of the chest Resp Auscultation: clear to auscultation bilaterally Cardio Palpation: normal PMI Heart sounds: S1 normal heart sound present, S2 normal heart sound present, no gallops, no murmurs and no rubs GI Palpation (GI): Soft to palpation Back/Spine/Pelvis Other: unremarkable Skin General skin exam: no rashes or lesions noted Neuro General: patient oriented x3 Extrem General: Yes normal to inspection Psych Mental Status: mental status grossly normal Office Procedures EKG Details: EKG with underlying sinus rhythm at 72/Min; nonspecific intraventricular conduction defect. Inferior and anterolateral downsloping STs. 50552-Ttjetqatwvlvwgwsg, Complete Assessment & Plan Assessment & Plan (1) Nonischemic cardiomyopathy: Code(s): I42.8 - Other cardiomyopathies Category: Medical Plan: In the last echocardiogram LVEF 45-50%. It has been as low as 25-30% in the past. Clinically, no heart failure symptoms or signs. Remains on Coreg. Was on losartan in the past but not anymore. She also has renal insufficiency. (2) Left bundle branch block: Code(s): I44.7 - Left bundle-branch block, unspecified Category: Medical Plan: Chronic finding. In today's EKG, more of a nonspecific conduction defect pattern with downsloping STs. Previously, left bundle pattern. We will get a repeat stress test. (3) Essential hypertension: Code(s): I10 - Essential (primary) hypertension Category: Medical Plan: No recent issues. Orders: Orders CA echo transthoracic complete Today I42.9 - Cardiomyopathy, unspecified NM cardiolite stress test Today I42.9 - Cardiomyopathy, unspecified, R07.2 - Precordial pain CA lexiscan stress w kristen Today I42.9 - Cardiomyopathy, unspecified, I44.7 - Left bundle-branch block, unspecified Coding Level of Care Code Est Pt Level 4 (93309) Complex EM visit Add On G2211 Diagnoses Nonischemic cardiomyopathy I42.8 Left bundle branch block I44.7 Essential hypertension I10 CPT Codes EKG - CPT: 33571-Evjmiedlcfmssoiux, Complete ([id number])
--- OUTSIDE RECORDS SUMMARY | 2024-12-25 14:34 | XMS_ITS ---
Author Organization [facility] Address [address] [place] [address] Care Team Providers Care Washer Off Name Role Phone Boaz Astorga MD Primary Care Provider Yarely Medina Unavailable [phone] Medications Medication SIG (Take, Route, Frequency, Duration) [...] day for 30 days 06/06/2023 Active Nystatin 574482 UNIT/GM 1 application Externally Twice a day [...] Active Encounters Encounter Location Date Provider Diagnosis [facility] [address] [address] 12/02/2024 Yarely Gibbs Plan Of Treatment Next Appt Details Provider Name:Yarely puckett, 02/18/2025 11:30:00 AM, [address] [place] [address], [address], Progress Notes * Alicia DUONGDOB:1945 (79 yo F)Acc No.[id number]:12/02/2024 Progress Note Patient:?Alicia DUONG Provider:?Yarely Gibbs DPM :1945???Age:79 Y???Sex:Female D ate:12/02/2024 Address:[address] [place], [place] [id number] Pcp:Boaz Astorga MD Subjective: * Chief Complaints: [...] needed Twice a day , Not-Taking/PRN Nystatin 365215 UNIT/GM Cream 1 application Externally Twice a [...] DPM Date:?08/2025 Generated for Mary Ann baca/Suzy/Ventura on:?12/25/2024 02:33 PM EST History and Physical Notes * HPI (History of Present Illness) Category Sub-Category Detail Notes Category Not es At Risk footcare Pt States Last PCP Visit: Date: 4
--- OUTSIDE RECORDS SUMMARY | 2024-12-25 14:34 | XMS_ITS | Patient Health Record ---
Author Organization [employer] [facility] [place] Address [address] [facility] [place] [address] Care Team Providers Care Welder Setter Resistance Machine Name Role Phone Rizwan SORENSON, Boaz Primary Care Provider Yarely Medina Unavailable [phone] Allergies Allergen (clinical drug ingredient) Drug/Non Drug [...] Active sertraline Sertraline Unknown Drug Allergy Active Reason For Referral Diagnosis 1 Type 2 [...] Boaz Referring Provider Last Name Rizwan Referred [facility] Referred Provider Yarely Gibbs Referred Address [address] [facility],[place],[address],[place] Referred Provider Specialty Podiatry Referral Priority Routine Medications Medication SIG (Take, Route, Frequency, Duration) Notes Start Date End Date Status ALPRAZolam 0.25 MG 1 tablet Orally Twic e a day PRN Active Januvia 100 MG 1 tablet Orally Once a day for 30 day(s) Not-Taking Furosemide 20 MG 1 tablet Orally Once a day Not-Taking Atorvastatin Calcium 80 MG 1 tablet Orally Once a day for 30 day(s) Not-Taking Ciclopirox Olamine 0.77 % 1 application to affected area Externally to feet Twice a day for 30 days Not-Taki ng Ozempic Active Tylenol 500 1 tablet as needed Orally Not-Taking Senna 8.6 MG Orally Once a day Not-Taking Losartan Potassium 50 MG 1 tablet Orally Once a day Not-Taking Trulicity 0.75 MG/0.5ML as directed Subcutaneous Not-Taking Vitamin D Active Spironolactone Activ e metFORMIN HCl 500 MG 1 tablet with a modesto l Orally Once a day for 30 days Active Ammonium Lactate 12 % 1 application Externally Twice a day to both feet for 30 days Active Glimepiride Active Mupirocin 2 % 1 application Externally Twice a day as neede to any open sores for 30 days 04/04/2022 Active Eye Drops Active Ammonium Lactate 10 % 1 application Externally Twice a day to both feet for 30 days Active Clotrimazole-Betamethason e 1-0.05 % 1 application Externally Twice a day Active Ketoconazole 2 % 1 application Externally Twice a day for 30 days 06/06/2023 Active Rosuvastatin Calcium 40 MG TAKE 1 TABLET BY MOUTH DAILY Oral for 90 Days Active Pantoprazole Sodium 40 MG 1 tablet Orall y Once a day for 30 day(s) Active Ointment Base Active Multivitamin Active Carvedilol 6.25 MG 1 tablet with food Orally Twice a day Active Ciclopirox Olamine 0.77 % 1 application to affected area Externally to feet Twice a day for 30 days Not-Taki ng busPIRone HCl 7.5 MG 1 tablet Orally Twi ce a day Active Nystatin 342881 UNIT/GM 1 application Externally Twice a day Not-Takin g Mupirocin 2 % 1 application Externally as needed Twice a day for 7 days Not-Takin g Bactrim DS 800-160 MG 1 tablet Orally ev carlos 12 hrs for 5 days 04/04/2022 Not-Taking Immunizations Vaccine Route Administration Date Status Comme [...] Type 2 diabetes mellitus with peripheral angiopathy (457941193) Type 2 diabetes mellitus with diabetic peripheral angiopathy without gangrene (E11.51) Active confirmed Vital Signs Blood pressure diastolic 76` mm Hg 09/17/2024 Height 5 ft in 09/17/2024 Blood pressure systolic 122 mm Hg 09/17/2024 Weight 143 lbs 09/17/2024 BMI 27.92 kg/m2 09/17/2024 Encounters Encounter Location Date Provider Diagnosis [facility] [place] [address] [place] [address] 02/26/2024 Yarely Gibbs Tinea pedis of both feet B35.3 ; Type 2 diabetes mellitus with diabetic peripheral angiopathy without gangrene E11.51 ; Tinea unguium B35.1 ; Pain in left toe(s) M79.675 and Pain in right toe(s) M79.[address] [address] 07/09/2024 Yarely Perica Tinea pedis of both feet B35.3 ; Type 2 diabetes mellitus with diabetic peripheral angiopathy without gangrene E11.51 ; Tinea unguium B35.1 ; Pain in left toe(s) M79.675 and Pain in right toe(s) M79.[address] [address] 09/17/2024 Yarely Perica Tinea pedis of both feet B35.3 ; Type 2 diabetes mellitus with diabetic peripheral angiopathy without gangrene E11.51 ; Tinea unguium B35.1 ; Pain in left toe(s) M79.675 ; Pain in right toe(s) M79.674 and Xerosis cutis L85.[address] [address] 05/26/2024 Yarely Perica [address] [address] 05/27/2024 Yarely Perica [address] [address] 07/02/2024 Yarely Perica [address] [address] 12/02/2024 Yarely Gibbs Assessments Encounter Date Diagnosis (ICD Code) Assessment Notes Treatment Notes Treatment Clinical Notes Section Notes 02/26/2024 Type 2 diabetes mellitus with diabetic [...] E11.51) 02/26/2024 Tinea unguium (ICD-10 - B35.1) 02/26/2024 Pain in left toe(s) (ICD-10 - [...] 3V 06/07/2022 Next Appt Details Provider Name:Yarely puckett, 02/18/2025 11:30:00 AM, [address] [place] [address], [phone], Insurance Providers Payer Name Payer Address Payer Phone Subscriber Number Group Number Insured Name Patient Relationship to Insured Coverage Start Date Coverage End Date [facility] [address] [place] [phone] [id number] Alicia Noel Self - patient is the insured Medical (General) History Medical History History ICD Code Angina Anxiety Arthritis Back, Hip, Knee Pain Depression Headaches/Migraines Heart Disease High Blood Pressure Poor Circulation Psychiatric Disorder CAD (Cholesterol) type II diabetes Crack in the ribs Surgical History Surgery Date(Month/Year) gall bladder Surgery lumpectomy cataracts Fibroid Hospitalization History Reason Date(Month/Year) [facility] [place]- High BP -[address] [facility] [place]- blood pressure- 2 days - changed wa ter pills 04/[address] [facility] [place]- low blood pressure - water pill sta yed 2 days 03/07/2021
--- OUTSIDE RECORDS SUMMARY | 2024-12-25 14:34 | XMS_ITS ---
Author Organization [facility] [place] Address [address] [place] [address] Care Team Providers Care Vice President Quality Name Role Phone Rizwan SORENSON Boaz Primary Care Provider Yarely Medina Unavailable [phone] REASON FOR VISIT same day cancel Encounters Encounter Location Date Provider Diagnosis [address] [address] 12/02/2024 Yarely Gibbs Plan Of Treatment Next Appt Details Provider Name:Yarely puckett, 02/18/2025 11:30:00 AM, [address] [place] [address], [address], Progress Notes * Alicia DUONGDOB:1945 (79 yo F)Acc No.[id number]:12/02/2024 Patient:?Alicia DUONG :1945???Age:79 Y???Sex:Female Address:[address], [place], [address] * true * Date:? Generated for Printi keven/Suzy/eTransmitting on:?12/25/2024 02:34 PM EST
--- OUTSIDE RECORDS SUMMARY | 2024-12-25 14:34 | XMS_ITS | Clinical Summary ---
Author Organization [facility] Address [address] [place] [address] Phone Care Team Providers Care Steam Turbine Operator Name Role Phone Boaz Astorga MD Primary Care Provider [phone]- [phone] Allergies Active Allergy Reactions Criticality Noted Date [...] age to complete this topic Insurance JALIL Fusion Antibodies [facility] ([id number]) [place] Fusion Antibodies [facility] ([id number]) Care Teams Steam Turbine Operator Relationship Specialty Start Date End Date Boaz Astorga MD [address] [place] [address] PCP - General 11/01/20
--- OUTSIDE RECORDS SUMMARY | 2024-12-25 14:34 | XMS_ITS ---
Author Organization [facility] Address [address] [place] [address] Care Team Providers Care Fire Protection Designer Name Role Phone Boaz Astorga MD Primary Care Provider Yarely Medina Unavailable [phone] Allergies Allergen (clinical drug ingredient) Drug/Non Drug [...] Orally Twi ce a day Active Nystatin 496032 UNIT/GM 1 application Externally Twice a day [...] 024 Encounters Encounter Location Date Provider Diagnosis [facility] [place] [address] [place] [address] 09/17/2024 Yarely Gibbs Tinea pedis of both [...] 30 days Mupirocin 2 % 1 application Compensation Business Partner ally Twice a day as neede to any open sores for 30 days 04/04/2022 Ketoconazole 2 % 1 application Compensation Business Partner ally Twice a day for 30 days 06/06/2023 Next Appt Details Follow Up: 2 Months, Reason: Provider Name:Yarely puckett, 02/18/2025 11:30:00 AM, [address] [place], [address], Procedure Notes * Category Sub-Category Detail Notes [...] use of a nail nipper and/or dremel-type convex grinder operator, to a more viable healthy nail plate [...] to maintain effectiveness in symptomatic relief - 16072 Keratoma Treatment Parring or Cutting o f Benign Hyperkeratotic Lesion(s) (-57) More than 4 Lesions - The Benign hyperkeratotic lesions, ( 6) in total, locations as stated and described in exam, were pared, and/or cut utilizing a sterile 15 blade, tissue nippers, and/or power dremel instrumentation - 05148 Progress Notes * Alicia DUONGDOB:1945 (79 yo F)Acc No.[id number]:09/17/2024 Progress Note Patient:?Alicia DUONG Provider:?Yarely Gibbs DPM :1945???Age:78 Y???Sex:Female D ate:09/17/2024 Address:[address] [place] [address] Pcp:Boaz Astorga MD Subjective: * Chief Complaints: [...] lumpectomy cataracts Fibroid * Hospitalization/Major Diagno stic Procedure:?[facility] low blood pressure - water pill stayed 2 days 03/07/2021[facility] blood pressure- 2 days - changed water [...] Externally as needed Twice a day Nystatin 218769 UNIT/GM Cream 1 application Externally Twice a [...] as needed Twice a day Not-Taking/PRN Nystatin 620038 UNIT/GM Cream 1 application Externally Twice a day Not-Taking/PRN Ciclopirox Olamine 0.77 % Cream 1 application to affected area Externally to feet Twice a day Medication List reviewed and reconciled with the patient * Allergies:?AspirinAmoxicillinAdhesiveLisinoprilHydrochlorothiazideCortisoneAmlod ipineIsosorbide DinitrateRanitidine 75NexiumCaffeineTopamaxDexilantSertralineDiclofenacEscitalopram OxalateMirtazapineNystatinWater Pills: Low blood pressure - Side EffectsBactrim: kidney issuesyes[Allergies Verified] Objective: * Vitals:?Ht: 5 ft, Wt: 143, B IA: 27.92, Shoe size: 8W, BP: 122/76`, BS: 66, Wt- k.86 kg. * Examination: ???Ophthalmology Referral: ?DIABETES EYE EXAM?Procedure Performed:?Yes ?Date of Exam Performed?10/22/2023 ?Findings of Diabetic Eye Exam:?no retinopathy?Dermatologic: ?SKIN FINDINGS:?Skin exam reveals Keratotic lesion(s) located [...] cool, proximal to distal, B/L.?General Examination: ?FOOT EXAM:?Lower Extremity Neurological Exam performed:?Yes ?Visual exam of foot performed:?Yes ?Date?09/17/2024 ?Footwear Evaluation?Footwear Evaluation performed:?Yes?Orthopedic: ?FOOTWEAR:?fair condition.? Assessment: * Assessment: 1.?Type 2 [...] use of a nail nipper and/or dremel-type convex grinder operator, to a more viable healthy nail plate [...] to maintain effectiveness in symptomatic relief - 05564.?Keratoma Treatment:?Parring or Cutting of Benign Hyperkeratotic Lesion(s)?(-57) More than 4 Lesions - The Benign hyperkeratotic lesions, ( 6) in total, locations as stated and described in exam, were pared, and/or cut utilizing a sterile 15 blade, tissue nippers, and/or power dremel instrumentation - 37847.? * Procedure Codes:?97498 DEBRI DE NAIL, 6 OR MORE, Modifiers: XS 68749 TRIM SKIN LESIONS, OVER 4, Modifiers: XS [...] DPM Date:? Generated for Mary Ann baca/Suzy/Ventura on:?12/25/2024 02:34 PM EST History and Physical Notes * [...]
== END 2024-12-25 13:05 | disposition home or self-care (01) ==
PROVIDERS: PCP Internal Medicine; Visit Provider Internal Medicine
DX: I42.8 Other cardiomyopathies (principal); I44.7 Left bundle-branch block, unspecified; I10 Essential (primary) hypertension
CPT/HCPCS: 93010; 99214; G2211

== ENCOUNTER → 2024-12-25 12:00 | Outpatient (BNVA) | payer OTHER, SELFPAY | PROVIDERS: PCP Internal Medicine; Visit Provider Internal Medicine | DX: I42.8 Other cardiomyopathies (principal); I44.7 Left bundle-branch block, unspecified; I10 Essential (primary) hypertension; R07.2 Precordial pain | CPT/HCPCS: 93005; 99212 ==

== ENCOUNTER 2025-01-02 08:42 | Outpatient (REF) | payer OTHER, SELFPAY ==
--- OUTSIDE RECORDS SUMMARY | 2025-01-02 08:56 | XMS_ITS | Patient Health Record ---
Author Organization [facility] [place] Address [address] [place] [address] Care Team Providers Care Home Mortgage Disclosure Act Specialist Name Role Phone Rizwan SORENSON, Boaz Primary Care Provider Yarely Medina Unavailable [phone] Allergies Allergen (clinical drug ingredient) Drug/Non Drug Allergy documented on EMR Reaction Allergy Type Onset Date Status amoxicillin Amoxicillin Unknown Drug Allergy Active aspirin Aspirin Unknown Drug Allergy Active Bactrim kidney issues Drug Allergy Active escitalopram [...] Diagnosis 7 Abrasion, left foot, initial encounter (V51.019M) Diagnosis 8 Xerosis cutis (L85.3 ) Diagnosis 9 Abrasion, left foot, subsequent encounter (S90.812D) Diagnosis 10 Contusion of left le sser toe(s) without damage to nail, initial encounter (S90.122A) Diagnosis 11 Contusion of left fo ot, subsequent encounter (S90.32XD) Diagnosis 12 Contusion of left fo ot or heel (S90.32XA) Referring Provider First Name Boaz Referring Provider Last Name Rizwan Referred [facility] Referred Provider Yarely Gibbs Referred Address [address] [facility],[place],[address],[place] Referred Provider Specialty Podiatry Referral Priority Routine [...] Orally Twi ce a day Active Nystatin 393534 UNIT/GM 1 application Externally Twice a day [...] Type 2 diabetes mellitus with peripheral angiopathy (458042113) Type 2 diabetes mellitus with diabetic peripheral angiopathy without gangrene (E11.51) Active confirmed Vital Signs Blood pressure diastolic 76` mm Hg 09/17/2024 Height 5 ft in 09/17/2024 Blood pressure systolic 122 mm Hg 09/17/2024 Weight 143 lbs 09/17/2024 BMI 27.92 kg/m2 09/17/2024 Encounters Encounter Location Date Provider Diagnosis [facility] [place] [address] [place] [address] 02/26/2024 Yarely Gibbs Tinea pedis of both feet B35.3 ; Type 2 diabetes mellitus with diabetic peripheral angiopathy without gangrene E11.51 ; Tinea unguium B35.1 ; Pain in left toe(s) M79.675 and Pain in right toe(s) M79.[address] [address] 07/09/2024 Yarely Perica Tinea pedis of both feet B35.3 ; Type 2 diabetes mellitus with diabetic peripheral angiopathy without gangrene E11.51 ; Tinea unguium B35.1 ; Pain in left toe(s) M79.675 and Pain in right toe(s) M79.[address] [address] 09/17/2024 Yarely Perica Tinea pedis of both feet B35.3 ; Type 2 diabetes mellitus with diabetic peripheral angiopathy without gangrene E11.51 ; Tinea unguium B35.1 ; Pain in left toe(s) M79.675 ; Pain in right toe(s) M79.674 and Xerosis cutis L85.[address] [address] 05/26/2024 Yarely Perica [address] [address] 05/27/2024 Yarely Perica [facility] [address] 07/02/2024 Yarely Perica [address] [address] 12/02/2024 Yarely Gibbs Assessments Encounter Date Diagnosis [...] Details Provider Name:Yarely puckett, 02/18/2025 11:30:00 AM, [address] [place] [address], [phone], Insurance Providers Payer Name Payer Address Payer Phone Subscriber Number Group Number Insured Name Patient Relationship to Insured Coverage Start Date Coverage End Date [facility] [address] [place] [phone] [id number] Alicia Noel Self - patient is the insured Medical (General) History Medical History History ICD Code Angina Anxiety Arthritis Back, Hip, Knee Pain Depression Headaches/Migraines Heart Disease High Blood Pressure Poor Circulation Psychiatric Disorder CAD (Cholesterol) type II diabetes Crack in the ribs Surgical History Surgery Date(Month/Year) gall bladder Surgery lumpectomy cataracts Fibroid Hospitalization History Reason Date(Month/Year) [facility] [place]- High BP -3 days [facility]- blood pressure- 2 days - changed wa ter pills 04/11 [facility] [place]- low blood pressure - water pill sta yed 2 days 03/07/2021
--- OUTSIDE RECORDS SUMMARY | 2025-01-02 08:56 | XMS_ITS | Clinical Summary ---
Author Organization [facility] Address [address] [place] [address] Phone Care Team Providers Care Forepart Rounder Name Role Phone Boaz Astorga MD Primary Care Provider [phone]- [phone] Allergies Active Allergy Reactions Criticality Noted Date [...] age to complete this topic Insurance JALIL Fondu [facility] ([id number]) [place] Fondu [facility] ([id number]) Care Teams Forepart Rounder Relationship Specialty Start Date End Date Boaz Astorga MD [address] [place] [address] PCP - General 11/01/20
--- OUTSIDE RECORDS SUMMARY | 2025-01-02 08:56 | XMS_ITS ---
Author Organization [facility] Address [address] [place] [address] Care Team Providers Care Resin Shaver Name Role Phone Boaz Astorga MD Primary Care Provider Yarely eMdina Unavailable [phone] Medications Medication SIG (Take, Route, Frequency, Duration) [...] day for 30 days 06/06/2023 Active Nystatin 221832 UNIT/GM 1 application Externally Twice a day [...] Active Encounters Encounter Location Date Provider Diagnosis [facility] [address] [address] 12/02/2024 Yarely Gibbs Plan Of Treatment Next Appt Details Provider Name:Yarely puckett, 02/18/2025 11:30:00 AM, [address] [place] [address], [address], Progress Notes * Alicia DUONGDOB:1945 (79 yo F)Acc No.[id number]:12/02/2024 Progress Note Patient:?Alicia DUONG Provider:?Yarely Gibbs DPM :1945???Age:79 Y???Sex:Female D ate:12/02/2024 Address:[address] [place], [place] [address] Pcp:Boaz Astorga MD Subjective: * Chief Complaints: [...] needed Twice a day , Not-Taking/PRN Nystatin 543751 UNIT/GM Cream 1 application Externally Twice a [...] DPM Date:?08/2025 Generated for Mary Ann baca/Suzy/Ventura on:?01/02/2025 08:55 AM EDT History and Physical Notes * HPI (History of Present Illness) Category Sub-Category Detail Notes Category Not es At Risk footcare Pt States Last PCP Visit: Date: 4
--- OUTSIDE RECORDS SUMMARY | 2025-01-02 08:56 | XMS_ITS ---
Author Organization [facility] [place] [place] Address [address] [place] [address] Care Team Providers Care Mirror Inspector Name Role Phone Rizwan SORENSON Boaz Primary Care Provider Yarely Medina Unavailable [phone] REASON FOR VISIT same day cancel Encounters Encounter Location Date Provider Diagnosis [address] [address] 12/02/2024 Yarely Gibbs Plan Of Treatment Next Appt Details Provider Name:Yarely puckett, 02/18/2025 11:30:00 AM, [address] [place] [address], [address], Progress Notes * Alicia DUONGDOB:1945 (79 yo F)Acc No.[id number]:12/02/2024 Patient:?Alicia DUONG :1945???Age:79 Y???Sex:Female Address:[address], [place], [address] * true * Date:? Generated for Printi ng/Farikg/eTransmitting on:?01/02/2025 08:56 AM EDT
--- OUTSIDE RECORDS SUMMARY | 2025-01-02 08:56 | XMS_ITS ---
Author Organization [facility] Address [address] [place] [address] Care Team Providers Care Board Finisher Name Role Phone Boaz Astorga MD Primary Care Provider Yarely Medina Unavailable [phone] Allergies Allergen (clinical drug ingredient) Drug/Non Drug [...] Orally Twi ce a day Active Nystatin 523812 UNIT/GM 1 application Externally Twice a day Not-Miguelin g Ciclopirox Olamine 0.77 % 1 application to [...] Blood pressure systolic 122 mm Hg 09/17/20 24 Blood pressure diastolic 76` mm Hg 024 Encounters Encounter Location Date Provider Diagnosis [facility] [place] [address] [place] [address] 09/17/2024 Yarely Gibbs Tinea pedis of both [...] 30 days Mupirocin 2 % 1 application Thermal Technician ally Twice a day as neede to any open sores for 30 days 04/04/2022 Ketoconazole 2 % 1 application Thermal Technician ally Twice a day for 30 days 06/06/2023 Next Appt Details Follow Up: 2 Months, Reason: Provider Name:Yarely puckett, 02/18/2025 11:30:00 AM, [address] [place], [address], Procedure Notes * Category Sub-Category Detail Notes [...] use of a nail nipper and/or dremel-type grinder mill operator, to a more viable healthy nail [...] to maintain effectiveness in symptomatic relief - 35309 Keratoma Treatment Parring or Cutting o f Benign Hyperkeratotic Lesion(s) (-57) More than 4 Lesions - The Benign hyperkeratotic lesions, ( 6) in total, locations as stated and described in exam, were pared, and/or cut utilizing a sterile 15 blade, tissue nippers, and/or power dremel instrumentation - 50935 Progress Notes * Alicia DUONGDOB:1945 (79 yo F)Acc No.[id number]:09/17/2024 Progress Note Patient:?Alicia DUONG Provider:?Yarely Gibbs DPM :1945???Age:78 Y???Sex:Female D ate:09/17/2024 Address:[address] [place] [address] Pcp:Boaz Astorga MD Subjective: * Chief Complaints: [...] lumpectomy cataracts Fibroid * Hospitalization/Major Diagno stic Procedure:?[facility] [place] - water pill stayed 2 days 03/07/2021[facility] [place] blood pressure- 2 days - changed water pills 04/11[facility] [place] High BP -3 days * Family History:?Mother: [...] day as neede to any open sores Not-Taking/PRNTrulicity 0.75 MG/0.5ML Solution Pen-injector as directed Subcutaneous [...] Externally as needed Twice a day Nystatin 290676 UNIT/GM Cream 1 application Externally Twice a day Ciclopirox Olamine 0.77 % Cream 1 application to affected area Externally to feet Twice a day Medication List reviewed and reconciled with the patientNot- Taking/PRN Trulicity 0.75 MG/0.5ML Solution Pen-injector as directed Subcutaneous Not- Taking/PRN Ciclopirox Olamine 0.77 % Cream 1 application to affected area Externally to feet Twice a day Not-Taking/PRN Atorvastatin Calcium 80 MG Tablet 1 tablet Orally Once a day Not-Taking/PRN Furosemide 20 MG Tablet 1 tablet Orally Once a day Not- Taking/PRN Januvia 100 MG Tablet 1 [...] as needed Twice a day Not-Taking/PRN Nystatin 886832 UNIT/GM Cream 1 application Externally Twice a day Not-Taking/PRN Ciclopirox Olamine 0.77 % Cream 1 application to affected area Externally to feet Twice a day Medication List reviewed and reconciled with the patient * Allergies:?AspirinAmoxicillinAdhesiveLisinoprilHydrochlorothiazideCortisoneAmlod ipineIsosorbide DinitrateRanitidine 75NexiumCaffeineTopamaxDexilantSertralineDiclofenacEscitalopram OxalateMirtazapineNystatinWater Pills: Low blood pressure - Side EffectsBactrim: kidney issuesyes[Allergies Verified] Objective: * Vitals:?Ht: 5 ft, Wt: 143, B WA: 27.92, Shoe size: 8W, BP: 122/76`, BS: [...] use of a nail nipper and/or dremel-type grinder mill operator, to a more viable healthy nail [...] to maintain effectiveness in symptomatic relief - 91443.?Keratoma Treatment:?Parring or Cutting of Benign Hyperkeratotic Lesion(s)?(-57) More than 4 Lesions - The Benign hyperkeratotic lesions, ( 6) in total, locations as stated and described in exam, were pared, and/or cut utilizing a sterile 15 blade, tissue nippers, and/or power dremel instrumentation - 56645.? * Procedure Codes:?24202 DEBRI DE NAIL, 6 OR MORE, Modifiers: XS 40963 TRIM SKIN LESIONS, OVER 4, Modifiers: XS [...] Gibbs DPM Date:? Generated for Mary Ann Bone/Ventura on:?01/02/2025 08:55 AM EDT History and Physical [...]
[2025-01-02 10:59] LABS: Appearance Urine Clear; Color Urine Yellow; Glucose Urine UA Negative (Negative); Leukocyte Esterase Urine Negative (Negative); Nitrite Urine Negative (Negative); Specific Gravity - Urine 1.015 (1.005-1.025); UMIC TRIGGER UACC YES; Urine Blood Negative (Negative); Urine Ketones Negative (Negative); Urine Protein 30 (1+) mg/dL (Neg-Trace)
[2025-01-02 11:09] LABS: Bacteria Urine None Seen (None Seen); Hyaline Casts Urine 0-2 /LPF (0-2); RBC Urine 0-2 /HPF (0-2); Squamous Epithelial Cell Urine 0-2 /HPF (0-2); WBC Urine 0-5 /HPF (0-5)
[2025-01-02 13:40] LABS: Anion Gap 15 (12-20); Blood Urea Nitrogen 39 mg/dL (9-16); Carbon Dioxide 25 mmol/L (22-29); Chloride 104 mmol/L (96-108); Estimated Glomerular Filt Rate 20; Sodium 139 mmol/L (135-145)
[2025-01-06 18:39] LABS: Fructosamine 359 umol/L (205-285)
== END 2025-01-02 08:43 | disposition home or self-care (01) ==
LOC: HO.LAB 08:42
PROVIDERS: Nurse Practitioner Adult Health; PCP Internal Medicine; Visit Provider Internal Medicine Nephrology
DX: I15.0 Renovascular hypertension (principal); N25.81 Secondary hyperparathyroidism of renal origin; E11.22 Type 2 diabetes mellitus with diabetic chronic kidney disease; N18.4 Chronic kidney disease, stage 4 (severe); R30.0 Dysuria
CPT/HCPCS: 36415; 80051; 81001; 81003; 82565; 82985; 84520

== ENCOUNTER 2025-01-07 10:44 | Outpatient (AMB) | payer OTHER, SELFPAY ==
--- NOTE | 2025-01-07 11:18 | HO.NEPHOV ---
Vital Signs 01/07/25 11:19 Height 5 ft Weight 135 lb 2 oz BMI 26.4 BP 158/74 H Blood Pressure Location Rt brachial Position Sitting Pulse 68 Pulse Source Pulse Oximeter Pulse Oximetry (%) 100 Oxygen Delivery Method Room Air Intake Visit Reasons: 2 mnts-Conf Tank Setter Required: No Accompanied by: Other Relationship Allergies aspirin [Aspirin] Allergy (Severe, Verified 01/07/25 11:19) MOUTH SWELLING hydrochlorothiazide [Hydrochlorothiazide] Allergy (Intermediate, Verified 01/07/25 11:19) DROP IN BLOOD PRESSURE Penicillins [PENICILLINS] Allergy (Intermediate, Verified 01/07/25 11:19) ITCHING caffeine [Caffeine] Allergy (Mild, Verified 01/07/25 11:19) NERVOUSNESS lisinopril [Lisinopril] Allergy (Mild, Verified 01/07/25 11:19) CHANGES IN BLOOD PRESSURE ranitidine [RANITIDINE] Allergy (Mild, Verified 01/07/25 11:19) HEADACHE amlodipine [AMLODIPINE] Allergy (Unknown, Verified 01/07/25 11:19) UNKNOWN amoxicillin Allergy (Unknown, Verified 01/07/25 11:19) itching, severe with rash diclofenac Allergy (Unknown, Verified 01/07/25 11:19) Unknown escitalopram Allergy (Unknown, Verified 01/07/25 11:19) abdominal discomfort, drowsiness esomeprazole [Nexium] Allergy (Unknown, Verified 01/07/25 11:19) Unknown isosorbide [ISOSORBIDE] Allergy (Unknown, Verified 01/07/25 11:19) UNKNOWN lidocaine [Lidoderm] Allergy (Unknown, Verified 01/07/25 11:19) weakness mirtazapine Allergy (Unknown, Verified 01/07/25 11:19) Unknown nystatin Allergy (Unknown, Verified 01/07/25 11:19) rash sertraline [SERTRALINE] Allergy (Unknown, Verified 01/07/25 11:19) UNKNOWN dexlansoprazole [From DEXILANT] Adverse Reaction (Severe, Verified 01/07/25 11:19) AGITATION hydrocortisone [From Cortizone-10] Adverse Reaction (Mild, Verified 01/07/25 11:19) RAISES BLOOD SUGAR topiramate [From TOPAMAX] Adverse Reaction (Unknown, Verified 01/07/25 11:19) AGITATION From PLAVIX Allergy (Unknown, Uncoded 12/09/24 13:02) PT UNSURE OF REACTION Medical tape Allergy (Unknown, Uncoded 12/09/24 13:02) Rash HPI Comments Details: Alicia was seen in follow for her advanced CKD. She is known to have DM for a long time and is under better control now. She also has hypertension. She does not take NSAID's regularly. She denies any nausea, vomiting, diarrhea, SOB, edema, PND, orthopnea, hematuria, hearing deficits. She claims to be compliant with medications. She is not on SGLT2i. She has no sinusitis, epistaxis, photosensitivity, bone pain, sore throat , hemoptysis, skin lesions or recent antibiotic intake. Her renal functions have been getting worse lately but stable now . She denied any active complaints at the time of this office visit [facility] Medical History (Updated 12/25/24 @ 12:50 by Juve Alcazar MD) Left bundle branch block Type 2 diabetes mellitus with chronic kidney disease Chronic kidney disease, stage 4 (severe) Type 2 diabetes mellitus Obesity Skin abrasion HARRIET (renal artery stenosis) Nonischemic cardiomyopathy Urinary incontinence GERD (gastroesophageal reflux disease) COVID-19 Pneumonia due to COVID-19 virus Vertigo Obesity (BMI 30-39.9) Depression Anxiety Stasis edema of both lower extremities Cardiomyopathy Pure hypercholesterolemia Hyperkalemia Renal artery stenosis Benign essential hypertension Conjunctival hemorrhage of right eye Surgical History Hx of colonoscopy Hx of myomectomy History of cataract surgery History of lumpectomy of left breast History of cholecystectomy Family History Father CVD (cardiovascular disease) Myocardial infarction Mother Myocardial infarction CVD (cardiovascular disease) Brother Myocardial infarction Family/Other FH: prostate cancer Social History Household Members: None Housing: Apartment Do you presently have visiting nurse or other home services: No Alcohol intake: never Patient Tobacco Use Status: Former Tobacco user Tobacco use type: Cigarette e-Cigarette/Vaping Use: Never Used Second Hand Smoke Exposure: No Advance Directives Date on File: 08/06/21 service: No Current occupational status: disabled Cognitive needs: No Hearing needs: No Vision needs: Yes Review of Systems Const All systems reviewed & are unremarkable except as noted in HPI and below Physical Exam Vital Signs: Last Vital Signs Pulse 68 01/07/25 11:19 BP 158/74 H 01/07/25 11:19 Pulse Ox 100 01/07/25 11:19 Oxygen Delivery Method Room Air 01/07/25 11:19 BMI result Body Mass Index 26.4 Const General: comfortable and no acute distress Orientation/consciousness: patient oriented x3 HEENT Head: Yes normocephalic Mouth: Normal oral and palatal mucosa present Eyes EOM: EOMs intact bilaterally Neck Neck: Yes supple Resp Auscultation: clear to auscultation bilaterally Cardio Jugular venous distension: no JVD Rate: regular rate Heart sounds: Murmur heart sound present GI Palpation (GI): Soft to palpation Auscultation: normal bowel sounds General: Yes no CVA tenderness Back/Spine/Pelvis Back: no CVA tenderness Skin General skin exam: no rashes or lesions noted Neuro General: patient oriented x3 and moves all extremities Extrem General: Yes no pedal edema Results Reviewed Nephrology Results: Sodium 139 mmol/L (135-145) 01/02/25 Potassium 5.0 mmol/L (3.3-5.1) 01/02/25 Chloride 104 mmol/L (96-108) 01/02/25 Carbon Dioxide 25 mmol/L (22-29) 01/02/25 BUN 39 mg/dL (9-16) H 01/02/25 Creatinine 2.37 mg/dL (0.5-1.4) H 01/02/25 Urine Protein 30 (1+) mg/dL (Neg-Trace) H 01/02/25 Assessment & Plan Assessment & Plan (1) Secondary hyperparathyroidism (of renal origin): Code(s): N25.81 - Secondary hyperparathyroidism of renal origin Category: Medical (2) Hypertension: Code(s): I10 - Essential (primary) hypertension Category: Medical Qualifiers: Hypertension type: renovascular hypertension Qualified Code(s): I15.0 - Renovascular hypertension (3) Chronic kidney disease, stage 4 (severe): Code(s): N18.4 - Chronic kidney disease, stage 4 (severe) Category: Medical Plan BP at goal at home. 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 Based on published guidelines in J Am Abdoulaye Radiol 2013; 10(10):789-794 and J Vasc Surg. 2018; 67:2-77, the recommendation for an abdominal aorta with diameter 2.6-2.9 cm is follow-up every 5 years if the aorta that meets the criteria for AAA (>1.5 x proximal normal segment; no f/u if < 1.5 x proximal normal segment; no f/u for aorta < 2.6 cm) Has 24 hour urine for cr cl- 15 mls/mt- stable Aware about renal replacement if her renal func declines Follow up labs ordered; F/U in 2 months Orders: Orders Parathyroid Hormone Intact 2 Months I15.0 - Renovascular hypertension, N18.4 - Chronic kidney disease, stage 4 (severe), N25.81 - Secondary hyperparathyroidism of renal origin Calcium 2 Months I15.0 - Renovascular hypertension, N18.4 - Chronic kidney disease, stage 4 (severe), N25.81 - Secondary hyperparathyroidism of renal origin Ferritin 2 Months I15.0 - Renovascular hypertension, N18.4 - Chronic kidney disease, stage 4 (severe), N25.81 - Secondary hyperparathyroidism of renal origin Phosphorus 2 Months I15.0 - Renovascular hypertension, N18.4 - Chronic kidney disease, stage 4 (severe), N25.81 - Secondary hyperparathyroidism of renal origin Creatinine 2 Months I15.0 - Renovascular hypertension, N18.4 - Chronic kidney disease, stage 4 (severe), N25.81 - Secondary hyperparathyroidism of renal origin Blood Urea Nitrogen 2 Months I15.0 - Renovascular hypertension, N18.4 - Chronic kidney disease, stage 4 (severe), N25.81 - Secondary hyperparathyroidism of renal origin Electrolytes 2 Months I15.0 - Renovascular hypertension, N18.4 - Chronic kidney disease, stage 4 (severe), N25.81 - Secondary hyperparathyroidism of renal origin Vitamin D 25-OH Total 2 Months I15.0 - Renovascular hypertension, N18.4 - Chronic kidney disease, stage 4 (severe), N25.81 - Secondary hyperparathyroidism of renal origin Complete Blood Count Auto Diff 2 Months I15.0 - Renovascular hypertension, N18.4 - Chronic kidney disease, stage 4 (severe), N25.81 - Secondary hyperparathyroidism of renal origin IRON PROFILE 2 Months I15.0 - Renovascular hypertension, N18.4 - Chronic kidney disease, stage 4 (severe), N25.81 - Secondary hyperparathyroidism of renal origin Coding Level of Care Code Est Pt Level 4 (42181) Diagnoses Secondary hyperparathyroidism (of renal origin) N25.81 Renovascular hypertension I15.0 Hypertension type: renovascular hypertension Chronic kidney disease, stage 4 (severe) N18.4
[2025-01-07 11:19] VITALS: BP 158/74; PULSE 68; O2SAT 100; BMI 26.4
== END 2025-01-07 11:47 | disposition home or self-care (01) ==
LOC: HO.HKA 10:45
PROVIDERS: PCP Internal Medicine; Visit Provider Internal Medicine Nephrology
DX: I15.0 Renovascular hypertension (principal); N18.4 Chronic kidney disease, stage 4 (severe); N25.81 Secondary hyperparathyroidism of renal origin
CPT/HCPCS: 99214

== ENCOUNTER → 2025-01-07 10:44 | Outpatient (BNVA) | payer OTHER, SELFPAY | PROVIDERS: PCP Internal Medicine; Visit Provider Internal Medicine Nephrology | DX: E11.22 Type 2 diabetes mellitus with diabetic chronic kidney disease (principal); I12.9 Hypertensive chronic kidney disease with stage 1 through stage 4 chronic kidney disease, or unspecified chronic kidney disease; N18.4 Chronic kidney disease, stage 4 (severe); N25.81 Secondary hyperparathyroidism of renal origin; I15.0 Renovascular hypertension | CPT/HCPCS: 99212 ==

== ENCOUNTER → 2025-01-09 12:24 | Outpatient (REF) | payer OTHER, SELFPAY ==
--- NOTE | 2025-01-09 12:27 | CA_ITS ---
Transthoracic Echocardiogram Patient (Last, First, Middle): Alicia Noel, Gender: Female Date of : 1945 Age: 79 Procedure Date: 01/09/2025 Procedure Type: Transthoracic Echocardiogram Location: OP Height: 152.4 cm Weight: 61.24 kg BSA: 1.58 m2 Heart Rate: 70 bpm BP: 158 / 74 mmHg Commercial Mortgage Broker: SB Referring MD: Juve Alcazar MD Symptoms: I42.9 - Cardiomyopathy, unspecified Study Quality: Fair ECG Rhythm: Sinus Conclusions: - Normal left ventricular cavity size. There is normal left ventricular wall thickness. The left ventricular systolic function is mildly decreased. The visually estimated ejection fraction is between 40-45%. - E/E prime ratio is between 8 and 15 consistent with indeterminate filling pressures. - Normal right ventricular cavity size and systolic function. - The left atrium is likely dilated. 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 Findings Left Ventricle Normal left ventricular cavity size. There is normal left ventricular wall thickness. The left ventricular systolic function is mildly decreased. The visually estimated ejection fraction is between 40-45%. There is mild global hypokinesis. Abnormal diastolic function is noted. Spectral Doppler is indicative of an impaired relaxation filling pattern. E/E prime ratio is between 8 and 15 consistent with indeterminate filling pressures. Right Ventricle Normal right ventricular cavity size and systolic function. Atria The left atrium is likely dilated. 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 There is no evidence of interatrial shunt by color Doppler. The right atrium was not well visualized. Aortic Valve There is a normal trileaflet aortic valve. There is mild calcification of the aortic valve. There is no aortic valve stenosis. There is trace (trivial) aortic valve regurgitation. Mitral Valve The mitral valve appears normal. There is no mitral valve regurgitation. There is no mitral valve stenosis. Pulmonic Valve The pulmonic valve is normal. There is no pulmonic valve regurgitation. Tricuspid Valve There is no tricuspid valve regurgitation. Normal right atrial pressure. There is no evidence of pulmonary hypertension. Great Vessels All visible segments of the aorta are normal in size. The visualized portions of the pulmonary artery and branches are normal. Venous The inferior vena cava is normal in size and collapses greater than 50% with inspiration. Pericardium/Pleural There is no evidence of pericardial effusion. Prior Study Comparison No significant change compared to prior study dated: 12/21/2022. Measurements 2D Linear Measurements IVSd: 0.83 0.6-0.9/0.6-1.0 cm LVIDd: 5.10 3.9-5.3/4.2-5.9 cm LVIDd Index: 3.23 2.4-3.2/2.2-3.1 cm/m2 LVIDs: 4.20 2.0-3.6 cm LVPWd: 0.70 0.7-1.1 cm LV Mass: 165.55 67-162/88-224 g LV Mass Index: 104.78 43-95/49-115 g/m2 LVOT Diam: 1.90 3.0+(-)1.3 cm 2D Systolic Function EF 4C: 53.80 >55% EF 2C: 43.80 >55% EF BiP: 47.10 >55% Mitral Valve MV Pk E: 0.57 MV PK A: 0.84 MV Decel Time: 162.00 E/A: 0.70 E'Lateral: 5.77 E'Medial: 3.70 E/E' Med: 15.40 E/E' Lat: 9.90 PHT: 47.00 MVA PHT: 4.68 Decel Anderson: 3.52 Aortic Valve AoV Pk Marciano: 1.12 AoV Pk Grad: 5.00 HANNAH: 2.33 AI Pk Marciano: 3.07 AI Anderson: 1.59 LVOT LVOT Pk Marciano: 0.92 LVOT Mn Marciano: 0.62 LVOT VTI: 0.21 LVOT Pk Grad: 3.00 LVOT Mn Grad: 2.00 LVOT Diam: 1.90 LVOT Area: 2.84 Diastolic Function MV Pk E: 0.57 MV Pk A: 0.84 E/A: 0.70 E'Medial: 3.70 E/E' Med: 15.40 E' Laterial: 5.77 E/E' Lat: 9.90 Right Ventricle TAPSE (mm): 13.00 TVS' Marciano: 7.00 Tricuspid Valve TR Pk Marciano: 2.23 TR Pk Grad: 20.00 RA Press: 3.00 RVSP: 23.00 Great Vessels Aorta Sinus of Valsalva: 3.10 2.0-3.5 cm Ao Asc: 3.40 2.1-3.4 cm Pulmonary Veins Pulm Vein S/D 2.40 Pulmonary Valve PV Pk Marciano: 0.96 Peak PV Grad: 4.00 Updated in Other Vendor System with Status of Final Erasmo Pulido MD electronically signed on 01/10/2025 11:46:03 PM with status of Final
--- OUTSIDE RECORDS SUMMARY | 2025-01-09 14:54 | XMS_ITS | Patient Health Record ---
[facility] [place] Address [address] [place] [address] Care Team Providers Care Procedure Analyst Name Role Phone Rizwan SORENSON, Boaz Primary Care Provider Yarely Medina Unavailable [phone] Allergies Allergen (clinical drug ingredient) Drug/Non Drug [...] Boaz Referring Provider Last Name Rizwan Referred [facility] Referred Provider Yarely Gibbs Referred Address [address],[place],[address],[place] Referred Provider Specialty Podiatry Referral Priority Routine [...] Orally Twi ce a day Active Nystatin 419335 UNIT/GM 1 application Externally Twice a day [...] Type 2 diabetes mellitus with peripheral angiopathy ([id number]) Type 2 diabetes mellitus with diabetic peripheral angiopathy without gangrene (E11.51) Active confirmed Vital Signs Blood pressure diastolic 76` mm Hg 09/17/2024 Height 5 ft in 09/17/2024 Blood pressure systolic 122 mm Hg 09/17/2024 Weight 143 lbs 09/17/2024 BMI 27.92 kg/m2 09/17/2024 Encounters Encounter Location Date Provider Diagnosis [facility] [place] [address] [place] [address] 02/26/2024 Yarely Gibbs Tinea pedis of both feet B35.3 ; Type 2 diabetes mellitus with diabetic peripheral angiopathy without gangrene E11.51 ; Tinea unguium B35.1 ; Pain in left toe(s) M79.675 and Pain in right toe(s) M79.[address] [address] 07/09/2024 Yarely Perica Tinea pedis of both feet B35.3 ; Type 2 diabetes mellitus with diabetic peripheral angiopathy without gangrene E11.51 ; Tinea unguium B35.1 ; Pain in left toe(s) M79.675 and Pain in right toe(s) M79.[address] [address] 09/17/2024 Yarely Perica Tinea pedis of both feet B35.3 ; Type 2 diabetes mellitus with diabetic peripheral angiopathy without gangrene E11.51 ; Tinea unguium B35.1 ; Pain in left toe(s) M79.675 ; Pain in right toe(s) M79.674 and Xerosis cutis L85.[address] [address] 05/26/2024 Yarely Perica [address] [address] 05/27/2024 Yarely Perica [address] [address] 07/02/2024 Yarely Perica [address] [address] 12/02/2024 Yarely Gibbs Assessments Encounter Date Diagnosis [...] Details Provider Name:Yarely puckett, 02/18/2025 11:30:00 AM, [address] [place] [address], [phone], Insurance Providers Payer Name Payer Address Payer Phone Subscriber Number Group Number Insured Name Patient Relationship to Insured Coverage Start Date Coverage End Date [facility] [address] [place] [phone] [id number] Alicia Noel Self - patient is the insured Medical (General) History Medical History History ICD Code Angina Anxiety Arthritis Back, Hip, Knee Pain Depression Headaches/Migraines Heart Disease High Blood Pressure Poor Circulation Psychiatric Disorder CAD (Cholesterol) type II diabetes Crack in the ribs Surgical History Surgery Date(Month/Year) gall bladder Surgery lumpectomy cataracts Fibroid Hospitalization History Reason Date(Month/Year) [facility] [place]3 days [facility] [place] blood pressure- 2 days - changed wa ter pills 04/11 [facility] [place] blood pressure - water pill sta yed 2 days 03/07/2021
--- OUTSIDE RECORDS SUMMARY | 2025-01-09 14:54 | XMS_ITS ---
Author Organization [facility] Address [address] [place] [address] Care Team Providers Care Expansion Envelope Maker Hand Name Role Phone Boaz Astorga MD Primary Care Provider Yarely Medina Unavailable [phone] Medications Medication SIG (Take, Route, Frequency, Duration) [...] day for 30 days 06/06/2023 Active Nystatin 827626 UNIT/GM 1 application Externally Twice a day [...] Active Encounters Encounter Location Date Provider Diagnosis [facility] [address] [address] 12/02/2024 Yarely Gibbs Plan Of Treatment Next Appt Details Provider Name:Yarely puckett, 02/18/2025 11:30:00 AM, [address] [place] [address], [phone], Progress Notes * Alicia DUONGDOB:1945 (79 yo F)Acc No.[id number]:12/02/2024 Progress Note Patient:?Alicia DUONG Provider:?Yarely Gibbs DPM :1945???Age:79 Y???Sex:Female D ate:12/02/2024 Address:[address] [place], [place] [id number] Pcp:Boaz Astorga MD Subjective: * Chief Complaints: [...] needed Twice a day , Not-Taking/PRN Nystatin 240215 UNIT/GM Cream 1 application Externally Twice a [...] DPM Date:?08/2025 Generated for Mary Ann baca/Suzy/Ventura on:?01/09/2025 02:54 PM EDT History and Physical Notes * HPI (History of Present Illness) Category Sub-Category Detail Notes Category Not es At Risk footcare Pt States Last PCP Visit: Date: 4
--- OUTSIDE RECORDS SUMMARY | 2025-01-09 14:54 | XMS_ITS ---
Author Organization [facility] Address [address] [place] [address] Care Team Providers Care Traveling Storekeeper Name Role Phone Boaz Astorga MD Primary Care Provider Yarely Medina Unavailable [phone] Allergies Allergen (clinical drug ingredient) Drug/Non Drug [...] Orally Twi ce a day Active Nystatin 854446 UNIT/GM 1 application Externally Twice a day [...] 024 Encounters Encounter Location Date Provider Diagnosis [facility] [place] [address] [place] [address] 09/17/2024 Yarely Gibbs Tinea pedis of both [...] 30 days Mupirocin 2 % 1 application Programmer Or Analyst ally Twice a day as neede to any open sores for 30 days 04/04/2022 Ketoconazole 2 % 1 application Programmer Or Analyst ally Twice a day for 30 days 06/06/2023 Next Appt Details Follow Up: 2 Months, Reason: Provider Name:Yarely puckett, 02/18/2025 11:30:00 AM, [address] [place], [address], Procedure Notes * Category Sub-Category Detail Notes [...] use of a nail nipper and/or dremel-type graphite grinder, to a more viable healthy nail [...] to maintain effectiveness in symptomatic relief - 34138 Keratoma Treatment Parring or Cutting o f Benign Hyperkeratotic Lesion(s) (-57) More than 4 Lesions - The Benign hyperkeratotic lesions, ( 6) in total, locations as stated and described in exam, were pared, and/or cut utilizing a sterile 15 blade, tissue nippers, and/or power dremel instrumentation - 95164 Progress Notes * Alicia DUONGDOB:1945 (79 yo F)Acc No.[id number]:09/17/2024 Progress Note Patient:?Alicia DUONG Provider:?Yarely Gibbs DPM :1945???Age:78 Y???Sex:Female D ate:09/17/2024 Address:[address] [place] [address] Pcp:Boaz Astorga MD Subjective: * Chief Complaints: [...] lumpectomy cataracts Fibroid * Hospitalization/Major Diagno stic Procedure:[place] [place] water pill stayed 2 days [place]07[place] [place]- 2 days - changed water [...] Externally as needed Twice a day Nystatin 312183 UNIT/GM Cream 1 application Externally Twice a [...] as needed Twice a day Not-Taking/PRN Nystatin 806705 UNIT/GM Cream 1 application Externally Twice a day Not-Taking/PRN Ciclopirox Olamine 0.77 % Cream 1 application to affected area Externally to feet Twice a day Medication List reviewed and reconciled with the patient * Allergies:?AspirinAmoxicillinAdhesiveLisinoprilHydrochlorothiazideCortisoneAmlod ipineIsosorbide DinitrateRanitidine 75NexiumCaffeineTopamaxDexilantSertralineDiclofenacEscitalopram OxalateMirtazapineNystatinWater Pills: Low blood pressure - Side EffectsBactrim: kidney issuesyes[Allergies Verified] Objective: * Vitals:?Ht: 5 ft, Wt: 143, B WV: 27.92, Shoe size: 8W, BP: 122/76`, BS: [...] use of a nail nipper and/or dremel-type graphite grinder, to a more viable healthy nail [...] to maintain effectiveness in symptomatic relief - 50255.?Keratoma Treatment:?Parring or Cutting of Benign Hyperkeratotic Lesion(s)?(-57) More than 4 Lesions - The Benign hyperkeratotic lesions, ( 6) in total, locations as stated and described in exam, were pared, and/or cut utilizing a sterile 15 blade, tissue nippers, and/or power dremel instrumentation - 43783.? * Procedure Codes:?84814 DEBRI DE NAIL, 6 OR MORE, Modifiers: XS 52505 TRIM SKIN LESIONS, OVER 4, Modifiers: XS [...] DPM Date:? Generated for Mary Ann baca/Suzy/Ventura on:?01/09/2025 02:54 [...]
--- OUTSIDE RECORDS SUMMARY | 2025-01-09 14:54 | XMS_ITS ---
Author Organization [facility] Address [address] [place] [address] Care Team Providers Care Sighter Name Role Phone Rizwan SORENSON Boaz Primary Care Provider Yarely Medina Unavailable [phone] REASON FOR VISIT same day cancel Encounters Encounter Location Date Provider Diagnosis [address] [address] 12/02/2024 Yarely Gibbs Plan Of Treatment Next Appt Details Provider Name:Yarely puckett, 02/18/2025 11:30:00 AM, [address] [place] [address], [address], Progress Notes * Alicia DUONGDOB:1945 (79 yo F)Acc No.[id number]:12/02/2024 Patient:?Alicia DUONG :1945???Age:79 Y???Sex:Female Address:[address], [place], [address] * true * Date:? Generated for Printi ng/Ceceliag/eTransmitting on:?01/09/2025 02:54 PM EDT
--- OUTSIDE RECORDS SUMMARY | 2025-01-09 14:54 | XMS_ITS | Clinical Summary ---
Author Organization [facility] Address [address] [place] [address] Phone Care Team Providers Care Distributed Generation Project Manager Name Role Phone Boaz Astorga MD Primary Care Provider [phone] Allergies Active Allergy Reactions Criticality Noted Date [...] age to complete this topic Insurance JALIL Panono [facility] ([id number]) CAYUTA Panono [facility]/[employer] ([id number]) Care Teams Distributed Generation Project Manager Relationship Specialty Start Date End Date Boaz Astorga MD [address] [place] [address] PCP - General 11/01/20
== END ==
LOC: HO.CARD 12:24
PROVIDERS: PCP Internal Medicine; Visit Provider Internal Medicine
DX: I42.9 Cardiomyopathy, unspecified (principal)
CPT/HCPCS: 93306

== ENCOUNTER → 2025-01-09 12:27 | Outpatient (BNV) | payer OTHER, SELFPAY | PROVIDERS: PCP Internal Medicine; Visit Provider Internal Medicine Cardiovascular Disease | DX: I25.3 Aneurysm of heart (principal); I35.8 Other nonrheumatic aortic valve disorders | CPT/HCPCS: 93306 ==

== ENCOUNTER 2025-01-29 10:48 | Outpatient (AMB) | payer OTHER, SELFPAY ==
--- NOTE | 2025-01-29 07:52 | A.OFFVIS_ITS ---
Vital Signs 01/29/25 10:49 Height 5 ft Weight 138 lb 14.259 oz BMI 27.1 BP 134/78 Blood Pressure Location Rt brachial Position Sitting Pulse 67 Pulse Source Pulse Oximeter Pulse Oximetry (%) 98 Oxygen Delivery Method Room Air Intake Visit Reasons: Type 2 diabetes mellitus Intake Note: Patient presents today for a follow-up on Type 2 Diabetes Mellitus: Patient c/o nocturnal leg cramps Last Diabetic eye exam was on: 01/2024, DUE?? Last Podiatry exam was on: 08/2024 Most recent HbA1c: 8.4%, 01/29/2025 Random Glucose- 264 mg/dL, Today Entertainment Centre Manager Required: No Accompanied by: Self / Same As Patient Allergies aspirin [Aspirin] Allergy (Severe, Verified 01/29/25 10:50) MOUTH SWELLING hydrochlorothiazide [Hydrochlorothiazide] Allergy (Intermediate, Verified 01/29/25 10:50) DROP IN BLOOD PRESSURE Penicillins [PENICILLINS] Allergy (Intermediate, Verified 01/29/25 10:50) ITCHING caffeine [Caffeine] Allergy (Mild, Verified 01/29/25 10:50) NERVOUSNESS lisinopril [Lisinopril] Allergy (Mild, Verified 01/29/25 10:50) CHANGES IN BLOOD PRESSURE ranitidine [RANITIDINE] Allergy (Mild, Verified 01/29/25 10:50) HEADACHE amlodipine [AMLODIPINE] Allergy (Unknown, Verified 01/29/25 10:50) UNKNOWN amoxicillin Allergy (Unknown, Verified 01/29/25 10:50) itching, severe with rash diclofenac Allergy (Unknown, Verified 01/29/25 10:50) Unknown escitalopram Allergy (Unknown, Verified 01/29/25 10:50) abdominal discomfort, drowsiness esomeprazole [Nexium] Allergy (Unknown, Verified 01/29/25 10:50) Unknown isosorbide [ISOSORBIDE] Allergy (Unknown, Verified 01/29/25 10:50) UNKNOWN lidocaine [Lidoderm] Allergy (Unknown, Verified 01/29/25 10:50) weakness mirtazapine Allergy (Unknown, Verified 01/29/25 10:50) Unknown nystatin Allergy (Unknown, Verified 01/29/25 10:50) rash sertraline [SERTRALINE] Allergy (Unknown, Verified 01/29/25 10:50) UNKNOWN dexlansoprazole [From DEXILANT] Adverse Reaction (Severe, Verified 01/29/25 10:50) AGITATION hydrocortisone [From Cortizone-10] Adverse Reaction (Mild, Verified 01/29/25 10:50) RAISES BLOOD SUGAR topiramate [From TOPAMAX] Adverse Reaction (Unknown, Verified 01/29/25 10:50) AGITATION From PLAVIX Allergy (Unknown, Uncoded 01/29/25 10:50) PT UNSURE OF REACTION Medical tape Allergy (Unknown, Uncoded 01/29/25 10:50) Rash HPI Comments Details: [age] YO female who is seen in f/u for T2DM at the request of PCP. She was seen in consult 12/19/24. HgbA1C 8.4% today in the office. HgbA1c 11/05/24 7.9 %, 12/09/2019 7.5% Initially diagnosed with T2DM: had gestational diabetes developed in her 50's. Was initially started on treatment with:metformin januvia had weight gain Trulicity: not effective had side effect Gi symptoms, weakness Ozempic was stopped secondary to weight loss and gerd Current regimen: trajenta 5mg takes at lunh acarbose 25 mg at breakfast Checks glucose 1-2 times per day Most readings in the am are in good range higher later in the day Has numbness on the right side of her mouth which started last night She had a headache last night which has resolved. Has eyes checked yearly, last eye exam 01/2024 denies retinopathy. Followed by Dr. Hanna Denies neuropathy, no numbness, tinging or pain, has occasional cramping in legs. last foot exam today, sees podiatry folllowed every 2-3 months was just seen last week Has nephropathy, not on mar-arb (allergy). 01/02/25 eGFR 20 She is followed by Dr. Madrigal Has HLD, on statin Last LDL 68 as measured on 10/3024 Has cardiomyopathy followed regularly by cardiology recent echo 12/2024 ejection fraction 40-45% stress test has been ordered by Cardiology Diet: balanced recently seen by [facility] Weight: Has lost weight No recent CDE, she declines as she has recently seen [facility] Medical History Left bundle branch block Type 2 diabetes mellitus with chronic kidney disease Chronic kidney disease, stage 4 (severe) Type 2 diabetes mellitus Obesity Skin abrasion HARRIET (renal artery stenosis) Nonischemic cardiomyopathy Urinary incontinence GERD (gastroesophageal reflux disease) COVID-19 Pneumonia due to COVID-19 virus Vertigo Obesity (BMI 30-39.9) Depression Anxiety Stasis edema of both lower extremities Cardiomyopathy Pure hypercholesterolemia Hyperkalemia Renal artery stenosis Benign essential hypertension Conjunctival hemorrhage of right eye Surgical History Hx of colonoscopy Hx of myomectomy History of cataract surgery History of lumpectomy of left breast History of cholecystectomy Family History Father CVD (cardiovascular disease) Myocardial infarction Mother Myocardial infarction CVD (cardiovascular disease) Brother Myocardial infarction Family/Other FH: prostate cancer Social History Household Members: None Housing: Apartment Do you presently have visiting nurse or other home services: No Alcohol intake: never Patient Tobacco Use Status: Former Tobacco user Tobacco use type: Cigarette e-Cigarette/Vaping Use: Never Used Second Hand Smoke Exposure: No Advance Directives Date on File: 08/06/21 service: No Current occupational status: disabled Cognitive needs: No Hearing needs: No Vision needs: Yes Physical Exam Vital Signs: Last Vital Signs Pulse 67 01/29/25 10:49 BP 134/78 01/29/25 10:49 Pulse Ox 98 01/29/25 10:49 Oxygen Delivery Method Room Air 01/29/25 10:49 BMI result Body Mass Index 27.1 Const Other: Absence of Cushingoid features. Absence of acromegalic features. Neck exam reveals nl size thyroid about 15 gms. No thyroid nodules palpable. Heart S1 S2, Reg R/R. No M/R G. Skin exam reveals absence of vitiligo or acanthosis nigricans. Visual exam of foot performed. No ulcerations or open lesions. No inter digit maceration or fissuring. No onychomycosis, no callouses. Sensation intact to monofilament exam. Vibratory sensation is normal with 128 Hz tuning fork. Results AMB Hemoglobin A1c AMB Hemoglobin A1c 8.4 % Last Edit by SCOUT Swenson on 01/29/25 11:15 Results Reviewed Results Reviewed: Laboratory Last Values Glucose (Clinic) 264 mg/dL (60-115) H 01/29/25 11:05 Hgb A1c (Clinic) 8.4 % (4.0-6.0) H 01/29/25 11:10 Assessment & Plan Assessment & Plan (1) Type 2 diabetes mellitus: Code(s): E11.9 - Type 2 diabetes mellitus without complications Category: Medical Qualifiers: Chronic kidney disease stage: stage 4 (severe) 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 complication detail: with chronic kidney disease 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 complication status: with kidney complications 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 group home insulin use: without keno terminal operator use Qualified Code(s): E11.22 - Type 2 diabetes mellitus with diabetic chronic kidney disease; N18.4 - Chronic kidney disease, stage 4 (severe) Plan: 79-year-old type 2 diabetic with cardiomyopathy followed by Cardiology and nephropathy with low EGFR [address] Madrigal with a recent A1c of The patient had an opportunity to ask questions regarding treatment plan. The patient expressed understanding and agreement with the above treatment plan. The patient is aware they should contact our office by phone for worsening glucose readings or for any low blood sugars which may warrant a change in diabetes medication. Compliance is encouraged with medications and any followup testing/consults which may have been ordered. Orders: Orders AMB Hemoglobin A1c Today E11.22 - Type 2 diabetes mellitus with diabetic chronic kidney disease, N18.4 - Chronic kidney disease, stage 4 (severe) Scribe Plan - Not visible on output: Take 15 carb carbohydrate grams to treat a low sugar (3-4 glucose tablets, half a glass of juice or 15 carbohydrate grams of soft candy such as gummie snacks). Recheck your sugar in 15 minutes and re-treat again with 15 carbohydrate grams if low or still with symptoms. Do not drive a car or operate machinery if you do not know what your blood sugar is, if it is low or in excess of 300. She should avoid nonsteroidal anti-inflammatories and maintain good hydration along with keeping her blood sugar at goal. Avoidance of acute kidney injury discussed with patient. Sick day management discussed. Coding Diagnoses Type 2 diabetes mellitus with stage 4 chronic kidney disease, without long-term current use of insulin E11.22; N18.4 Chronic kidney disease stage: stage 4 (severe) 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 complication detail: with chronic kidney disease 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 complication status: with kidney complications 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 group home insulin use: without group home use
[2025-01-29 10:49] VITALS: BP 134/78; PULSE 67; O2SAT 98; BMI 27.1
[2025-01-29 11:11] LABS: Glucose, Whole Blood 264 mg/dL (60-115)
--- OUTSIDE RECORDS SUMMARY | 2025-01-29 12:54 | XMS_ITS | Patient Health Record ---
[facility] [place] Address [address] [place] [address] Care Team Providers Care Shingles Roofer Name Role Phone Rizwan SORENSON, Boaz Primary Care Provider Yarely Medina Unavailable [phone] Allergies Allergen (clinical drug ingredient) Drug/Non Drug [...] Boaz Referring Provider Last Name Rizwan Referred [facility] Referred Provider Yarely Gibbs Referred Address [address],[place],[address],[place] Referred Provider Specialty Podiatry Referral Priority Routine Medications Medication SIG (Take, Route, Frequency, Duration) Notes Start Date End Date Status Spironolactone Activ e Rosuvastatin Calcium 40 MG TAKE 1 TABLET BY MOUTH DAILY Oral for 90 Days Active Pantoprazole Sodium 40 MG 1 tablet Orall y Once a day for 30 day(s) Active Ointment Base Active Ciclopirox Olamine 0.77 % 1 application to affected area Externally to feet Twice a day for 30 days Not-Taki ng Extra Depth Orthopedic Shoes, (1) Pair With (3) Pair Custom Heat Molded Multidensity Innersoles Dx: NIDDM/PVD(E11.51), Hammertoe Foot Deformity(M20.41,M20.42 ), Preulcerative Skin Lesion(s)(L85.1) Wear Daily; Patient prefers sandals or Sophia-Liliana style shoes for 365 days 01/21/2025 Active Ketoconazole 2 % 1 application Externally Twice a day for 30 days 06/06/2023 Active Vitamin D Active Senna 8.6 MG Orally Once a day Not-Taking Losartan Potassium 50 MG 1 tablet Orally Once a day Not-Taking Multivitamin Active Nystatin 772955 UNIT/GM 1 application Externally Twice a day Not-Takin g Glimepiride Active Mupirocin 2 % 1 application Externally as needed Twice a day for 7 days Not-Takin g Eye Drops Active Bactrim DS 800-160 MG 1 tablet Orally ev carlos 12 hrs for 5 days 04/04/2022 Not-Taking Clotrimazole-Betamethason e 1-0.05 % 1 application Externally Twice a day Active Tylenol 500 1 tablet as needed Orally Not-Taking Tradjenta 5 MG 1 tablet Orally Once a day Active Furosemide 20 MG 1 tablet Orally Once a day Not-Taking Atorvastatin Calcium 80 MG 1 tablet Orally Once a day for 30 day(s) Not-Taking Ciclopirox Olamine 0.77 % 1 application to affected area Externally to feet Twice a day for 30 days Not-Taki ng Trulicity 0.75 MG/0.5ML as directed Subcutaneous Not-Taking Carvedilol 6.25 MG 1 tablet with food Orally Twice a day Active busPIRone HCl 7.5 MG 1 tablet Orally Twi ce a day Active ALPRAZolam 0.25 MG 1 tablet Orally Twic e a day PRN Active Januvia 100 MG 1 tablet Orally Once a day for 30 day(s) Not-Taking Ammonium Lactate 10 % 1 application Externally Twice a day to both feet for 30 days Active metFORMIN HCl 500 MG 1 tablet with a modesto l Orally Once a day for 30 days Not-Taking Ozempic Not-Taking Ammonium Lactate 12 % 1 application Externally Twice a day to both feet for 30 days Active Mupirocin 2 % 1 application Externally Twice a day as neede to any open sores for 30 days 04/04/2022 Active Ciclopirox Olamine 0.77 % 1 application to affected area Externally Twice a day to effected areas on feet for 30 days 01/21/2025 Active Immunizations Vaccine Route Administration Date Status [...] Problem Status W/U Status Risk Notes Problem Acquired hammer toe of right foot (69539900890540 05) Other hammer toe(s) (acquired), right foot (M20.41) Active confirmed Problem Type 2 diabetes mellitus with peripheral angiopathy (280901399) Type 2 diabetes mellitus with diabetic peripheral angiopathy without gangrene (E11.51) Active confirmed Problem Acquired hammer toe of left foot (79843076483865 03) Other hammer toe(s) (acquired), left foot (M20.42) Active confirmed Vital Signs Blood pressure diastolic 77 mm Hg 01/21/2025 Height 5 ft in 01/21/2025 Blood pressure systolic 120 mm Hg 01/21/2025 Weight 143 lbs 01/21/2025 BMI 27.92 kg/m2 01/21/2025 Encounters Encounter Location Date Provider Diagnosis [address] [address] 02/26/2024 Yarely Perica Tinea pedis of both feet B35.3 ; Type 2 diabetes mellitus with diabetic peripheral angiopathy without gangrene E11.51 ; Tinea unguium B35.1 ; Pain in left toe(s) M79.675 and Pain in right toe(s) M79.[address] [address] 07/09/2024 Yarely Perica Tinea pedis of both feet B35.3 ; Type 2 diabetes mellitus with diabetic peripheral angiopathy without gangrene E11.51 ; Tinea unguium B35.1 ; Pain in left toe(s) M79.675 and Pain in right toe(s) M79.[address] [address] 09/17/2024 Yarely Perica Tinea pedis of both feet B35.3 ; Type 2 diabetes mellitus with diabetic peripheral angiopathy without gangrene E11.51 ; Tinea unguium B35.1 ; Pain in left toe(s) M79.675 ; Pain in right toe(s) M79.674 and Xerosis cutis L85.[address] [address] 01/21/2025 Yarely Perica Tinea pedis of both feet B35.3 ; Other hammer toe(s) (acquired), right foot M20.41 ; Type 2 diabetes mellitus with diabetic peripheral angiopathy without gangrene E11.51 ; Tinea unguium B35.1 ; Pain in left toe(s) M79.675 ; Pain in right toe(s) M79.674 ; Xerosis cutis L85.3 and Other hammer toe(s) (acquired), left foot M20.42 [facility] [address] [address] 05/26/2024 Yarely Perica [facility] [address] [address] 05/27/2024 Yarely Perica [facility] [address] [address] 07/02/2024 Yarely Perica [facility] [address] [address] 12/02/2024 Yarely Perica [facility] [address] [address] 01/21/2025 Yarely Gibbs Assessments Encounter Date Diagnosis (ICD [...] pedis of both feet (ICD-10 - B35.3) 01/21/2025 Other hammer toe(s) (acquired), right foot (ICD-10 - M20.41) Patient Educated with: DIABETIC FOOT CARE INSTRUCTIONS.p df (DIABETIC FOOT CARE INSTRUCTIONS.p df) 01/21/2025 Tinea pedis of both feet (ICD-10 - B35.3) 09/17/2024 Tinea unguium (ICD-10 - B35.1) 01/21/2025 Type 2 diabetes mellitus with diabetic peripheral angiopathy without gangrene (ICD-10 - E11.51) 07/09/2024 Type 2 diabetes mellitus with diabetic peripheral angiopathy without gangrene (ICD-10 - E11.51) 02/26/2024 Tinea unguium (ICD-10 - B35.1) 02/26/2024 Pain in left toe(s) (ICD-10 - M79.675) 07/09/2024 Tinea unguium (ICD-10 - B35.1) 09/17/2024 Pain in left toe(s) (ICD-10 - M79.675) 01/21/2025 Tinea unguium (ICD-10 - B35.1) 01/21/2025 Pain in left toe(s) (ICD-10 - M79.675) 09/17/2024 Pain in right toe(s) (ICD-10 - M79.674) 07/09/2024 Pain in left toe(s) (ICD-10 - M79.675) 02/26/2024 Pain in right toe(s) (ICD-10 - M79.674) 07/09/2024 Pain in right toe(s) (ICD-10 - M79.674) 01/21/2025 Pain in right toe(s) (ICD-10 - M79.674) 09/17/2024 Xerosis cutis (ICD-10 - L85.3) 01/21/2025 Xerosis cutis (ICD-10 - L85.3) 01/21/2025 Other hammer toe(s) (acquired), left foot (ICD-10 - M20.42) Plan Of Treatment Pending Test Test Name Order Date X ray : Foot, left 3V 05/19/2022 X ray : Foot, left 3V 06/07/2022 Next Appt Details Provider Name:Yarely puckett, 04/14/2025 01:30:00 PM, [address] [place] [address], [phone], Insurance Providers Payer Name Payer Address Payer Phone Subscriber Number Group Number Insured Name Patient Relationship to Insured Coverage Start Date Coverage End Date [facility] [id number] [place] [phone] [id number] Alicia Noel Self - patient is the insured Medical (General) History Medical History History ICD Code Angina Anxiety Arthritis Back, Hip, Knee Pain Depression Headaches/Migraines Heart Disease High Blood Pressure Poor Circulation Psychiatric Disorder CAD (Cholesterol) type II diabetes Crack in the ribs Surgical History Surgery Date(Month/Year) gall bladder Surgery lumpectomy cataracts Fibroid Hospitalization History Reason Date(Month/Year) C- High BP -3 days C- blood pressure- 2 days - changed wa ter pills 04/11 [facility] [place]- low blood pressure - water pill sta yed 2 days 03/07/2021
--- OUTSIDE RECORDS SUMMARY | 2025-01-29 12:54 | XMS_ITS | Clinical Summary ---
Author Organization [facility] Address [address] [place] [address] Phone Care Team Providers Care Fill Plant Operator Name Role Phone Boaz Astorga MD Primary Care Provider [phone] Allergies Active Allergy Reactions Criticality Noted Date [...] Hyperkalemia 01/05/2021 Renal artery stenosis 01/05/2021 Immunizations Immunization Administration Dates Next Due Influenza (IM) Preservative [...] Due Date Last Done Comments Pneumococcal Vaccine: 50+ Ye ars (1 of 2 - PCV) 1951 Diabetes: Hemoglobin A1C 12/15/2021 Diabetes: Ophthalmology Exam 12/15/2021 Diabetes: Pedal Pulse Checked 12/15/2021 Diabetes: Sensory Foot Exam 12/15/2021 Diabetes: Visual Foot Exam 12/15/2021 Influenza Vaccine (Season Ended) 2025 08/22/20 Hepatitis B Vaccine Aged Out No longe r eligible based on patient's age to complete this topic Insurance [employer] ([id number]) [employer] ([id number]) Care Teams Fill Plant Operator Relationship Specialty Start Date End Date Boaz Astorga MD [address] [place] [address] PCP - General 11/01/20
--- OUTSIDE RECORDS SUMMARY | 2025-01-29 12:54 | XMS_ITS ---
Author Organization [facility] Address [address] [place] [address] Care Team Providers Care Entry Clerk Name Role Phone Boaz Astorga MD Primary Care Provider Yarely Medina Unavailable [phone] Medications Medication SIG (Take, Route, Frequency, Duration) [...] day for 30 days 06/06/2023 Active Nystatin 048777 UNIT/GM 1 application Externally Twice a day [...] Active Encounters Encounter Location Date Provider Diagnosis [facility] [address] [address] 12/02/2024 Yarely Gibbs Plan Of Treatment Next Appt Details Provider Name:Yarely puckett, 04/14/2025 01:30:00 PM, [address] [place] [address], [phone], Progress Notes * Alicia DUONGDOB:1945 (79 yo F)Acc No.[id number]:12/02/2024 Progress Note Patient:?Alicia DUONG Provider:?Yarely Gibbs DPM :1945???Age:79 Y???Sex:Female D ate:12/02/2024 Address:[address] [place], [place] [id number] Pcp:Boaz Astorga MD Subjective: * Chief Complaints: [...] needed Twice a day , Not-Taking/PRN Nystatin 842975 UNIT/GM Cream 1 application Externally Twice a [...] DPM Date:?08/2025 Generated for Mary Ann baca/Suzy/Ventura on:?01/29/2025 12:54 PM EDT History and Physical Notes * HPI (History of Present Illness) Category Sub-Category Detail Notes Category Not es At Risk footcare Pt States Last PCP Visit: Date: 4
--- OUTSIDE RECORDS SUMMARY | 2025-01-29 12:55 | XMS_ITS ---
Author Organization [facility] rubina Tipton Address [address] [facility] [place] [address] Care Team Providers Care Gallery Or Museum Attendant Name Role Phone Boaz Astorga MD Primary Care Provider Yarely Medina Unavailable [phone] Allergies Allergen (clinical drug ingredient) Drug/Non Drug [...] by shoes and causing difficulty standing/walking., Skin Problem, Toe Irritation Medications Medication SIG (Take, Route, Frequency, Duration) Notes Start Date End Date Status Ciclopirox Olamine 0.77 % 1 application to affected area Externally to feet Twice a day for 30 days Not-Erick ng Nystatin 912049 UNIT/GM 1 application Externally Twice a day Not-Ancelmo g Mupirocin 2 % 1 application Externally as needed Twice a day for 7 days Not-Takin g Bactrim DS 800-160 MG 1 tablet Orally ev carlos 12 hrs for 5 days 04/04/2022 Not-Taking Tylenol 500 1 tablet as needed Orally Not-Taking Furosemide 20 MG 1 tablet Orally Once a day Not-Taking Atorvastatin Calcium 80 MG 1 tablet Orally Once a day for 30 day(s) Not-Taking Januvia 100 MG 1 tablet Orally Once a day for 30 day(s) Not-Taking Senna 8.6 MG Orally Once a day Not-Taking Losartan Potassium 50 MG 1 tablet Orally Once a day Not-Taking Ciclopirox Olamine 0.77 % 1 application to affected area Externally to feet Twice a day for 30 days Not-Taki ng Trulicity 0.75 MG/0.5ML as directed Subcutaneous Not-Taking metFORMIN HCl 500 MG 1 tablet with a modesto l Orally Once a day for 30 days Not-Taking Ozempic Not-Taking Ammonium Lactate 12 % 1 application Externally Twice a day to both feet for 30 days Active Spironolactone Activ e Ketoconazole 2 % 1 application Externally Twice a day for 30 days 06/06/2023 Active Vitamin D Active Ammonium Lactate 10 % 1 application Externally Twice a day to both feet for 30 days Active Mupirocin 2 % 1 application Externally Twice a day as neede to any open sores for 30 days 04/04/2022 Active Rosuvastatin Calcium 40 MG TAKE 1 TABLET BY MOUTH DAILY Oral for 90 Days Active Pantoprazole Sodium 40 MG 1 tablet Orall y Once a day for 30 day(s) Active Ointment Base Active Multivitamin Active Glimepiride Active Carvedilol 6.25 MG 1 tablet with food Orally Twice a day Active busPIRone HCl 7.5 MG 1 tablet Orally Twi ce a day Active Ciclopirox Olamine 0.77 % 1 application to affected area Externally Twice a day to effected areas on feet for 30 days 01/21/2025 Active Eye Drops Active Clotrimazole-Betamethason e 1-0.05 % 1 application Externally Twice a day Active Tradjenta 5 MG 1 tablet Orally Once a day Active Extra Depth Orthopedic Shoes, (1) Pair With (3) Pair Custom Heat Molded Multidensity Innersoles Dx: NIDDM/PVD(E11.51), Hammertoe Foot Deformity(M20.41,M20.42 ), Preulcerative Skin Lesion(s)(L85.1) Wear Daily; Patient prefers sandals or Sophia-Liliana style shoes for 365 days 01/21/2025 Active ALPRAZolam 0.25 MG 1 tablet Orally Twic e a day PRN Active Social History Tobacco Use: Social History [...] Problem Acquired hammer toe of right foot (7749802820811 105) Other hammer toe(s) (acquired), right foot (M20.41) Active confirmed Problem Acquired hammer toe of left foot (9138514825485 103) Other hammer toe(s) (acquired), left foot (M20.42) Active confirmed Vital Signs Height 5 ft in 01/21/2025 Weight 143 lbs 01/21/2025 BMI 27.92 kg/m2 01/21/2025 Blood pressure systolic 120 mm Hg 01/22/20 25 Blood pressure diastolic 77 mm Hg 025 Encounters Encounter Location Date Provider Diagnosis [facility] [address] [address] 01/21/2025 Yarely Gibbs Tinea pedis of both feet B35.3 ; Other hammer toe(s) (acquired), right foot M20.41 ; Type 2 diabetes mellitus with diabetic peripheral angiopathy without gangrene E11.51 ; Tinea unguium B35.1 ; Pain in left toe(s) M79.675 ; Pain in right toe(s) M79.674 ; Xerosis cutis L85.3 and Other hammer toe(s) (acquired), left foot M20.42 Assessments Encounter Date Diagnosis (ICD Code) Assessment Notes Treatment Notes Treatment Clinical Notes Section Notes 01/21/2025 Tinea pedis of both feet (ICD-10 - B35.3) 01/21/2025 Other hammer toe(s) (acquired), right foot (ICD-10 - M20.41) Patient Educated with: DIABETIC FOOT CARE INSTRUCTIONS.p df (DIABETIC FOOT CARE INSTRUCTIONS.p df) 01/21/2025 Type 2 diabetes mellitus with diabetic peripheral angiopathy without gangrene (ICD-10 - E11.51) 01/21/2025 Tinea unguium (ICD-10 - B35.1) 01/21/2025 Pain in left toe(s) (ICD-10 - M79.675) 01/21/2025 Pain in right toe(s) (ICD-10 - M79.674) 01/21/2025 Xerosis cutis (ICD-10 - L85.3) 01/21/2025 Other hammer toe(s) (acquired), left foot (ICD-10 - M20.42) Plan Of Treatment Medication Medication Name Sig Start Date Stop Date Notes Ciclopirox Olamine 0.77 % 1 application to affected area Externally Twice a day to effected areas on feet for 30 days 01/21/2025 Extra Depth Orthopedic Shoes , (1) Pair With (3) Pair Custom Heat Molded Multidensity Innersoles Dx: NIDDM/PVD(E11.51), Hammertoe Foot Deformity(M20.41,M20.42), Preulcerative Skin Lesion(s)(L85.1) Wear Daily; Patient prefers sandals or Sophia-Liliana style shoes for 365 days 01/21/2025 Treatment Notes Assessment Notes Other hammer toe(s) (acquired), right fo ot Patient Educated with: DIABETIC FOOT CARE INSTRUCTIONS.pdf (DIABETIC FOOT CARE INSTRUCTIONS.pdf) Next Appt Details Follow Up: 2 Months, Reason: Provider Name:Yarely puckett, 04/14/2025 01:30:00 PM, [address] [place] [address], [phone], Procedure Notes * Category Sub-Category Detail Notes Debride Nail 6-10 Nail debridement Due to the cl inical pathology outlined in the exam findings, performance of this nail treatment is medically necessary as its management by an unskilled/untrained nonprofessional would put this patients foot and overall health at risk. Therefore, debridement to affected nail(s), as described in exam ( T1, T3, T4, T6, T7, T8, T9), was performed exclusively by the physician of record to reduce/remove overall nail length, girth, thickness, subungual debris, and necrotic tissue, by manual and/or electrical means through the use of a nail nipper and/or dremel-type precision lens grinder apprentice, to a more viable healthy nail plate [...] to maintain effectiveness in symptomatic relief - 37713 Keratoma Treatment Parring or Cutting o f Benign Hyperkeratotic Lesion(s) (-57) More than 4 Lesions - Due to the at risk nature of the patients medical condition as documented in the exam findings, performance of this keratoderma treatment is medically necessary as its management by an unskilled/untrained nonprofessional would put this patients foot and overall health at risk. Therefore, the benign hyperkeratotic lesions, (6) in total, locations as stated and described in the exam ( Medial plantar, TA, T5, Heel(s), Midfoot, B/L ), were pared, and/or cut utilizing a sterile 15 blade, tissue nippers, and/or power dremel instrumentation by the physician of record - 38590 Progress Notes * Alicia DUONGDOB:1945 (79 yo F)Acc No.[id number]:01/21/2025 Progress Note Patient:?Alicia DUONG Provider:?Yarely Gibbs DPM :1945???Age:79 Y???Sex:Female D ate:01/21/2025 Address:[address] [place], [place] [id number] Pcp:Boaz Astorga MD Subjective: * Chief Complaints: * ???At Risk FootcarePainful N ail(s) aggrevated by shoes and causing difficulty standing/walking.Skin ProblemToe Irritation * HPI: ???At Risk footcare:?Pt States Last PCP Visit:?Date?12/03/2024 ???Skin problems:?Location:?B/L feet and legs.?Course:?unresolved, intermittent.?Treatments:?medication ( Lac Hydrin) Medication (Ciclopirox Olamine 0.77 Cream), Nystatin, clomitrizole-betamethasone, Ketoconazole-.?Toe pain:?Location:?B/L feet.?Duration:?several years.?Course:?worse.?Aggravated by:?shoes, any pressure.?Treatments:?change in shoes.? * ROS:?General/Constitutional:?Nausea?denies.?Vomiting?denies.?Hunger Thirst?denies.?Loss appetite?denies.?Chills?denies.?Fatigue?denies.?Fever?denies.?Night Sweats?denies.?Unexplained weight loss?denies.?Unexplained [...] lumpectomy cataracts Fibroid * Hospitalization/Major Diagno stic Procedure:?[facility]- low blood pressure - water pill stayed 2 days 03/07/2021[facility]- blood pressure- 2 days - changed water pills 04/11[facility]- High BP -3 days * Family History:?Mother: [...] while. ?Children: yes, 2. ?Exercise: yes, walking. ?Marital status: . 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 * Medications:?TakingTradjenta 5 MG Tablet 1 tablet Orally Once a day ALPRAZolam 0.25 MG Tablet 1 tablet Orally Twice a day , Notes to Pharmacist: PRNbusPIRone HCl 7.5 MG Tablet 1 tablet Orally Twice a day Carvedilol 6.25 MG Tablet 1 tablet with food Orally Twice a day Clotrimazole-Betamethasone 1-0.05 % Cream 1 application Externally Twice a day Eye Drops Glimepiride Multivitamin Ointment Base Pantoprazole Sodium 40 MG Tablet Delayed Release 1 tablet Orally Once a day Rosuvastatin Calcium 40 MG Tablet TAKE 1 TABLET BY MOUTH DAILY Oral Spironolactone Vitamin D Ketoconazole 2 % Cream 1 application Externally Twice a day Ammonium Lactate 10 % Lotion 1 application Externally Twice a day to both feet Mupirocin 2 % Ointment 1 application Externally Twice a day as neede to any open sores Ammonium Lactate 12 % Lotion 1 application Externally Twice a day to both feet Taking Tradjenta 5 MG Tablet 1 tablet Orally Once a day Taking ALPRAZolam 0.25 MG Tablet 1 tablet Orally Twice a day , Notes to Pharmacist: PRNTaking busPIRone HCl 7.5 MG Tablet 1 tablet Orally Twice a day Taking Carvedilol 6.25 MG Tablet 1 tablet with food Orally Twice a day Taking Clotrimazole-Betamethasone 1-0.05 % Cream 1 application Externally Twice a day Taking Eye Drops Taking Glimepiride Taking Multivitamin Taking Ointment Base Taking Pantoprazole Sodium 40 MG Tablet Delayed Release 1 tablet Orally Once a day Taking Rosuvastatin Calcium 40 MG Tablet TAKE 1 TABLET BY MOUTH DAILY Oral Taking Spironolactone Taking Vitamin D Taking Ketoconazole 2 % Cream 1 application Externally Twice a day Taking Ammonium Lactate 10 % Lotion 1 application Externally Twice a day to both feet Taking Mupirocin 2 % Ointment 1 application Externally Twice a day as neede to any open sores Taking Ammonium Lactate 12 % Lotion 1 application Externally Twice a day to both feet Not-Taking/PRNOzempic metFORMIN HCl 500 MG Tablet 1 tablet with a meal Orally Once a day Trulicity 0.75 MG/0.5ML Solution Pen- injector as directed Subcutaneous Ciclopirox Olamine 0.77 % [...] Externally as needed Twice a day Nystatin 515472 UNIT/GM Cream 1 application Externally Twice a day Ciclopirox Olamine 0.77 % Cream 1 application to affected area Externally to feet Twice a day Medication List reviewed and reconciled with the patientNot-Taking/PRN Ozempic Not-Taking/PRN metFORMIN HCl 500 MG Tablet 1 tablet with a meal Orally Once a day Not-Taking/PRN Trulicity 0.75 MG/0.5ML Solution Pen-injector as [...] as needed Twice a day Not-Taking/PRN Nystatin 950983 UNIT/GM Cream 1 application Externally Twice a day Not-Taking/PRN Ciclopirox Olamine 0.77 % Cream 1 application to affected area Externally to feet Twice a day Medication List reviewed and reconciled with the patient * Allergies:?AspirinAmoxicillinAdhesiveLisinoprilHydrochlorothiazideCortisoneAmlod ipineIsosorbide DinitrateRanitidine 75NexiumCaffeineTopamaxDexilantSertralineDiclofenacEscitalopram OxalateMirtazapineNystatinWater Pills: Low blood pressure - Side EffectsBactrim: kidney issuesyes[Allergies Verified] Objective: * Vitals:?Ht: 5 ft, Wt: 143, B VT: 27.92, Shoe size: 8W, BP: 120/77 mm Hg, BS: 122, Wt-k.86 kg. * Examination: ???Ophthalmology Referral: ?DIABETES EYE EXAM?Procedure Performed:?Yes ?Date of Exam Performed?2024 ?Findings of Diabetic Eye Exam:?no retinopathy?Dermatologic: ?SKIN FINDINGS:?Skin exam reveals Keratotic lesion(s) located at, Medial plantar, TA, T5, Heel(s), Midfoot, B/L , Skin shows continued sign(s) of, erythema, scaling, in a moccasin fashion, no fissure(s) present, B/L , Skin shows mild? sign(s) of, dryness, scaling, in a stocking [...] decreased, cool to cool, proximal to distal, B/L.?PIGMENTATION:?mottled, B/L, brawny, B/L.?EDEMA (C):?2/4, B/L.?General Examination: ?GENERAL APPEARANCE:?Reveals a pleasant, alert, well nourished, well- developed, well hydrated individual, who demonstrates proper attention to hygiene/body habitus, and is in no acute distress, Pt serves as own historian for office visit today.?ORIENTED:?person, place, and time.?FOOT EXAM:?Lower Extremity Neurological Exam performed:?Yes ?Visual exam of foot performed:?Yes ?Date?01/21/2025 ?Footwear Evaluation?Footwear Evaluation performed:?Yes?Orthopedic: ?MUSCLE STRENGTH:?5/5 all groups in a symmetrical fashion, B/L.?DIGITAL DEFORMITIES:?Digital contracture, PIPJ, 2-5 B/L, incompl-reducible to push-up test, no over, nor underlapping,?there is?evidence of shoe producing skin irritation.?FOOTWEAR EVALUATION:?fair condition , worn, non-supportive, shoe gear properties exacerbate patient's foot/toe deformity.?Neurological: ?SENSORY:?Neurological exam reveals intact sensorium, pain sensation normal, vibration sensation intact, pinprick sensation is normal in the lower extremities, Pt denies, anesthesia, burning, paresthesia, tingling, B/L.? Assessment: * Assessment: 1.?Other hammer toe(s) (acqu ired), right foot - M20.41 (Primary)???Specify :Chronic problem, Worse (4),Rx Management (4)???2.?Tinea pedis of both feet - B35.3???Specify :Chronic problem, Stable (1=3,2=4)???3.?Type 2 diabetes mellitus with diabetic peripheral angiopathy without gangrene - E11.51???4.?Tinea unguium - B35.1???5.?Pain in left toe(s) - M79.675???6.?Pain in right toe(s) - M79.674???7.?Xerosis cutis - L85.3???8.?Other hammer toe(s) (acquired), left foot - M20.42???Specify :Chronic problem, Worse (4),Rx Management (4)??? Plan: * Treatment: 2.?Tinea pedis of both feet? Start Ciclopirox Olamine Cream, 0.77 %, 1 application to affected area, Externally, Twice a day to effected areas on feet, 30 days, 30 Gram, Refills 2.?? * Procedures:?Debride Nail 6-10:?Nail debridement?Due to the clinical pathology outlined in the exam findings, performance of this nail treatment is medically necessary as its management by an unskilled/untrained nonprofessional would put this patients foot and overall health at risk. Therefore, debridement to affected nail(s), as described in exam (??T1,?T3,?T4,?T6,?T7,?T8,?T9), was performed exclusively by the physician of record to reduce/remove overall nail length, girth, thickness, subungual debris, and necrotic tissue, by manual and/or electrical means through the use of a nail nipper and/or dremel-type precision lens grinder apprentice, to a more viable healthy nail plate or bed tissue 6- 10 nails in total. Silver nitrate was used for any petechial bleeding as necessary. Definitive antifungal treatment options, both pharmaceutical and surgical, have been reviewed and discussed with the patient. The patient solely prefers the use of intermittent/as needed professional debridement services for their nail condition and understands the need for additional periodic treatments to maintain effectiveness in symptomatic relief - 64552.?Keratoma Treatment:?Parring or Cutting of Benign Hyperkeratotic Lesion(s)?(-57) More than 4 Lesions - Due to the at risk nature of the patients medical condition as documented in the exam findings, performance of this keratoderma treatment is medically necessary as its management by an unskilled/untrained nonprofessional would put this patients foot and overall health at risk. Therefore, the benign hyperkeratotic lesions, (6) in total, locations as stated and described in the exam (?Medial plantar,?TA,?T5,?Heel(s),?Midfoot,?B/L?), were pared, and/or cut utilizing a sterile 15 blade, tissue nippers, and/or power dremel instrumentation by the physician of record - 31517.? * Procedure Codes:?12947 DEBRI DE NAIL, 6 OR MORE, Modifiers: XS 94170 TRIM SKIN LESIONS, OVER 4, Modifiers: XS * Preventive Medicine:? ??Counseling:?Discussion:?-14: Office or other outpatient visit for the evaluation and management of an established patient, which required a medically appropriate history and/or examination and MODERATE level of DECISION MAKING for: 1 OR MORE CHRONIC PROBLEM(S) THATS WORSENING, 2 STABLE CHRONIC PROBLEMS, A NEWLY DIAGNOSED PROBLEM WITH UNCERTAIN PROGNOSIS, AN ACUTE COMPLICATED INJURY WITH MULTIPLE TREATMENT OPTIONS, OR AN ACUTE PROBLEM WITH ACCOMPANYING SYSTEMIC SYMPTOMS, THAT POSE(S) A MODERATE RISK OF MORBIDITY. THIS CONDITION MAY ALSO INCLUDE RX DRUG MANAGEMENT, OR A DECISON FOR MINOR SURGERY. The visit on the day of the [...] have encouraged the patient to call the office.?Digital Surgery:?Digital surgery was discussed with the patient, We elected to try conservative treatment at the present time, due to the patients medical history and increased asssociated post-operative risks.?Digital Treatment:?HT- I explained to the patient the possible etiologies of Hammertoes, including genetics/foot type/shoegear/activity level/exercise routine and the risks/benefits of all the different treatment options for their pain including: No treatment at all, Rest, Ice, New/supportive/wider/deeper Shoegear, Digital Padding/Strapping/Taping/Bracing/Gel protective sleeves, Foot/Ankle AFO Bracing, Stretching exercises, Deep Tissue Massage, Arch support/shoe inserts with splay metatarsal padding, and Custom orthoses. I insisted that any digital devices be removed daily and not worn overnight for safety. The patient is to carefully examine the toes daily for any skin irritation while using any splinting or padding device. The advantages and disadvantages of each option were discussed and the patients questions re: shoegear, padding, custom vs prefabricated inserts, activity level, and consistency in home treatment regimens for optimal success were answered to their verbally confirmed satisfaction.?Shoe Gear Counseling:?SHOE Rx - The patient was counseled in great detail on their muscoloskeletal foot and toe deformities which coincided with the dermatological presentations visualized on exam. We discussed how their deformities put the integrity of their feet at risk for potential pedal complications which makes the accomidative diabetic shoes and cutomizable inserts medically necessary. We discussed the different shoe and insert treatment types and options, as well as the important advantages for adhering to regularly wearing these accomidative devices daily. The patient was made aware of the fact that a failure to abide by these recommedations may be deleterious to their foot health as they are able to prevent many pedal complications such as skin irritation, skin ulceration, infection, and even loss of toe/foot/leg/or life. Time was also spent with the patient dispensing and discussing proper diabetic footcare techniques including daily skin moisturization, daily foot inspection for any interruption in skin integrity including open lesions, or sign of infection such as redness/malodor/drainage/swelling. Also discussed and recommended were procedures regarding daily shoe inspection for the presence of internal foreign bodies as well as any visualized irregular shoe or insert wear. Patient questions re: shoes, inserts, and self foot inspections were answered to their satisfaction as the patient verbally confirmed a full understanding of the above information. A Rx for Extra Depth Orthopedic Shoes with 3 pair of custom heat-molded inserts was dispensed.?Tinea Pedis:?The patient was counseled on the diagnosis, [...] their pharmacy at the time of visit.? ??Screening/Special Tests:?Fall Risk?Assessment:?Performed ?Screening:?No falls in the past year ?FALLS: Screening for Future Fall Risk?Have you had two or more falls in the past year??No ?Have you had any falls with injury in the past year??No * Follow Up:?2 Months * Images: * Sign off status: Completed true * Provider:?ASA GrangerM Date:?11/2024 Generated for Mary Ann baca/Suzy/Jonathonitting on:?01/29/2025 12:54 PM EDT History and Physical Notes * HPI (History of Present Illness) Category Sub-Category Detail Notes Category Not es Toe pain Location: B/L feet Duration: several years Course: worse Aggravated by: shoes, any pressure Treatments: change in shoes Skin problems Location: B/L feet and legs Course: unresolved, intermit tent Treatments: medication ( Lac Hyd rin) Medication (Ciclopirox Olamine 0.77 Cream), Nystatin, clomitrizole-betamethasone, Ketoconazole- At Risk footcare Pt States Last PCP Visit: Date: Examination Category Sub-Category Detail Notes Category Not es Neurological SENSORY: Neurological exa m reveals intact sensorium, pain sensation normal, vibration sensation intact, pinprick sensation is normal in the lower extremities, Pt denies, anesthesia, burning, paresthesia, tingling, B/L Dermatologic SKIN FINDINGS: Skin exam reveal s Keratotic lesion(s) located at, Medial plantar, TA, T5, Heel(s), Midfoot, B/L , Skin shows continued sign(s) of, erythema, scaling, in a moccasin fashion, no fissure(s) present, B/L , Skin shows mild sign(s) of, dryness, scaling, in a stocking fashion, no fissure(s) present, B/L Orthopedic FOOTWEAR EVALUATION: fair condit ion , worn, non-supportive, shoe gear properties exacerbate patient's foot/toe deformity DIGITAL DEFORMITIES: Digital contracture , PIPJ, 2-5 B/L, incompl-reducible to push-up test, no over, nor underlapping, there is evidence of shoe producing skin irritation MUSCLE STRENGTH: 5/5 all groups in a symmetrical fashion, B/L General Examination GENERAL APPEARANCE: Reveals a pleasant, alert, well nourished, well-developed, well hydrated individual, who demonstrates proper attention to hygiene/body habitus, and is in no acute distress, Pt serves as own historian for office visit today FOOT EXAM: Lower Extremity Neurological Exa m performed:: Yes Visual exam of foot performed:: Yes Date: 01/21/2025 ORIENTED: person, place, and t christopher Footwear Evaluation Footwear Evaluation performe d:: Yes Ophthalmology Referral DIABETES EYE EXAM Procedure Perform ed:: Yes ?Date of Exam Performed: 2024 Findings of Diabetic Eye Exam:: no retin opathy Vascular DP PULSES (B): 0/4, B/L PT PULSES (B): 0/4, B/L CAPILLARY FILL TIME: delayed, all digits , B/L TEMPERTURE GRADIENT (C): decreased, cool to cool, proximal to distal, B/L EDEMA (C): 2/4, B/L PIGMENTATION: mottled, B/L, brawny , B/L Nails NAILS are: Elongated, overg rown, dystrophic, lytic, greater than 3mm thick, discolored and friable with crumbly malodorous subungual debris, with pain on palpation, T1, T3, T4, T6, T7, T8, T9
--- OUTSIDE RECORDS SUMMARY | 2025-01-29 12:55 | XMS_ITS ---
Author Organization [facility] rubina Belden Address [address] [place] [address] Care Team Providers Care Car Inspector Name Role Phone Martell Astorga MDneth Primary Care Provider Yarely Medina Unavailable [phone] REASON FOR VISIT sooner appt Encounters Encounter Location Date Provider Diagnosis [address] [address] 01/21/2025 Yarely Gibbs Plan Of Treatment Next Appt Details Provider Name:Yarely puckett, 04/14/2025 01:30:00 PM, [address] [place], [id number], Progress Notes * Alicia DUONGDOB:1945 (79 yo F)Acc No.[id number]:01/21/2025 Patient:?Alicia DUONG :1945???Age:79 Y???Sex:Female Address:[address], [place], [address] * true * Date:? Generated for Printi ng/Farikg/eTransmitting on:?01/29/2025 12:54 PM EDT
== END 2025-01-29 11:47 | disposition home or self-care (01) ==
LOC: HO.ENCR 10:48
PROVIDERS: PCP Internal Medicine; Visit Provider Nurse Practitioner Adult Health
DX: E11.22 Type 2 diabetes mellitus with diabetic chronic kidney disease (principal); N18.4 Chronic kidney disease, stage 4 (severe)

== ENCOUNTER → 2025-01-29 10:48 | Outpatient (BNVA) | payer OTHER, SELFPAY | PROVIDERS: PCP Internal Medicine; Visit Provider Nurse Practitioner Adult Health | DX: E11.22 Type 2 diabetes mellitus with diabetic chronic kidney disease (principal); N18.4 Chronic kidney disease, stage 4 (severe) | CPT/HCPCS: 82947; 83036; 99212 ==

== ENCOUNTER 2025-01-30 14:35 | Emergency (ER) | payer OTHER, SELFPAY ==
[2025-01-30 14:39] VITALS: BP 164/79; PULSE 60; O2SAT 100
[2025-01-30 14:41] VITALS: BP 176/70; PULSE 72; RESP 18; TEMP 36.3; O2SAT 98; BMI 27.1
--- NOTE | 2025-01-30 14:51 | ECG_ITS ---
Test Reason : chest tightness Blood Pressure : */* mmHG Vent. Rate : 52 BPM Atrial Rate : 52 BPM P-R Int : 154 ms QRS Dur : 158 ms QT Int : 494 ms P-R-T Axes : 42 -24 19 degrees QTcB Int : 459 ms Sinus bradycardia Left bundle branch block Abnormal ECG When compared with ECG of 09-Sep-2023 12:19, Vent. rate has decreased by 26 bpm T wave inversion now evident in Inferior leads Referred By: Generic ED Physician Electronically Signed By: Erasmo Pulido
--- OUTSIDE RECORDS SUMMARY | 2025-01-30 15:26 | XMS_ITS | Clinical Summary ---
Author Organization [facility] Address [address] [place] [address] Phone Care Team Providers Care Inspector Circuitry Negative Name Role Phone Boaz Astorga MD Primary Care Provider [phone] Allergies Active Allergy Reactions Criticality Noted Date [...] patient's age to complete this topic Insurance [facility] ([id number]) [facility] ([id number]) Care Teams Inspector Circuitry Negative Relationship Specialty Start Date End Date Boaz Astorga MD [address] [place] [address] PCP - General 11/01/20
--- OUTSIDE RECORDS SUMMARY | 2025-01-30 15:26 | XMS_ITS ---
Author Organization [facility] Address [address] [place] [address] Care Team Providers Care Refractory Manager Name Role Phone Boaz Astorga MD Primary Care Provider Yarely Medina Unavailable [phone] Medications Medication SIG (Take, Route, Frequency, Duration) [...] day for 30 days 06/06/2023 Active Nystatin 809349 UNIT/GM 1 application Externally Twice a day [...] Active Encounters Encounter Location Date Provider Diagnosis [facility] [address] [address] 12/02/2024 Yarely Gibbs Plan Of Treatment Next Appt Details Provider Name:Yarely puckett, 04/14/2025 01:30:00 PM, [address] [place] [address], [phone], Progress Notes * Alicia DUONGDOB:1945 (79 yo F)Acc No.[id number]:12/02/2024 Progress Note Patient:?Alicia DUONG Provider:?Yarely Gibbs DPM :1945???Age:79 Y???Sex:Female D ate:12/02/2024 Address:[address] [place], [place] [id number] Pcp:Boaz Astorga MD Subjective: * Chief Complaints: [...] needed Twice a day , Not-Taking/PRN Nystatin 770729 UNIT/GM Cream 1 application Externally Twice a [...] DPM Date:?08/2025 Generated for Mary Ann baca/Suzy/Ventura on:?01/30/2025 03:26 PM EDT History and Physical Notes * HPI (History of Present Illness) Category Sub-Category Detail Notes Category Not es At Risk footcare Pt States Last PCP Visit: Date: 4
--- OUTSIDE RECORDS SUMMARY | 2025-01-30 15:26 | XMS_ITS ---
Author Organization [facility] [place] Address [address] [place] [address] Care Team Providers Care Optoelectronics Engineer Name Role Phone Boaz Astorga MD Primary Care Provider Yarely Medina Unavailable [phone] Allergies Allergen (clinical drug ingredient) Drug/Non Drug [...] day for 30 days Not-Erick ng Nystatin 441232 UNIT/GM 1 application Externally Twice a day [...] Problem Acquired hammer toe of right foot (9622973495113 105) Other hammer toe(s) (acquired), right foot (M20.41) Active confirmed Problem Acquired hammer toe of left foot (8970078815839 103) Other hammer toe(s) (acquired), left foot (M20.42) Active confirmed Vital Signs Height 5 ft in 01/21/2025 Weight 143 lbs 01/21/2025 BMI 27.92 kg/m2 01/21/2025 Blood pressure systolic 120 mm Hg 01/22/20 25 Blood pressure diastolic 77 mm Hg 025 Encounters Encounter Location Date Provider Diagnosis [facility] [address] [address] 01/21/2025 Yarely Gibbs Tinea pedis of both [...] Reason: Provider Name:Yarely puckett, 04/14/2025 01:30:00 PM, [address] [place] [address], [phone], Procedure Notes * Category Sub-Category Detail [...] use of a nail nipper and/or dremel-type paint grinder, to a more viable healthy nail [...] to maintain effectiveness in symptomatic relief - 45059 Keratoma Treatment Parring or Cutting o f [...] instrumentation by the physician of record - 31859 Progress Notes * Alicia DUONGDOB:1945 (79 yo F)Acc No.[id number]:01/21/2025 Progress Note Patient:?Alicia DUONG Provider:?Yarely Gibbs DPM :1945???Age:79 Y???Sex:Female D ate:01/21/2025 Address:[address] [place], [place] [id number] Pcp:Boaz Astorga MD Subjective: * Chief Complaints: [...] pressure - water pill stayed 2 days 03/07/2021[facility] [place] blood pressure- 2 days - changed water pills 04/11[facility] [place]- High BP -3 days * Family History:?Mother: [...] Externally as needed Twice a day Nystatin 556258 UNIT/GM Cream 1 application Externally Twice a [...] as needed Twice a day Not-Taking/PRN Nystatin 196011 UNIT/GM Cream 1 application Externally Twice a day Not-Taking/PRN Ciclopirox Olamine 0.77 % Cream 1 application to affected area Externally to feet Twice a day Medication List reviewed and reconciled with the patient * Allergies:?AspirinAmoxicillinAdhesiveLisinoprilHydrochlorothiazideCortisoneAmlod ipineIsosorbide DinitrateRanitidine 75NexiumCaffeineTopamaxDexilantSertralineDiclofenacEscitalopram OxalateMirtazapineNystatinWater Pills: Low blood pressure - Side EffectsBactrim: kidney issuesyes[Allergies Verified] Objective: * Vitals:?Ht: 5 ft, Wt: 143, B PR: 27.92, Shoe size: 8W, BP: 120/77 mm [...] use of a nail nipper and/or dremel-type paint grinder, to a more viable healthy nail [...] to maintain effectiveness in symptomatic relief - 81710.?Keratoma Treatment:?Parring or Cutting of Benign Hyperkeratotic Lesion(s)?(-57) [...] instrumentation by the physician of record - 25141.? * Procedure Codes:?33161 DEBRI DE NAIL, 6 OR MORE, Modifiers: XS 71064 TRIM SKIN LESIONS, OVER 4, Modifiers: XS [...] GrangerM Date:?11/2024 Generated for Mary Ann baca/Suzy/Jonathonitting on:?01/30/2025 03:26 PM EDT History and Physical [...]
--- OUTSIDE RECORDS SUMMARY | 2025-01-30 15:26 | XMS_ITS | Patient Health Record ---
Author [facility] [place] Address [address] [facility] [place] [place] [address] Care Team Providers Care Quenching Car Operator Name Role Phone Rizwan SORENSON, Boaz Primary Care Provider Yarely Medina Unavailable [phone] Allergies Allergen (clinical drug ingredient) Drug/Non Drug [...] Boaz Referring Provider Last Name Rizwan Referred [facility] Referred Provider Yarely Gibbs Referred Address [address] [facility],[place], [place],[address],[place] Referred Provider Specialty Podiatry Referral Priority Routine [...] Once a day Not-Taking Multivitamin Active Nystatin 783367 UNIT/GM 1 application Externally Twice a day [...] Problem Acquired hammer toe of right foot (28326674546332 05) Other hammer toe(s) (acquired), right foot (M20.41) Active confirmed Problem Type 2 diabetes mellitus with peripheral angiopathy (248752001) Type 2 diabetes mellitus with diabetic peripheral angiopathy without gangrene (E11.51) Active confirmed Problem Acquired hammer toe of left foot (11955004100630 03) Other hammer toe(s) (acquired), left foot (M20.42) Active confirmed Vital Signs Blood pressure diastolic 77 mm Hg 01/21/2025 Height 5 ft in 01/21/2025 Blood pressure systolic 120 mm Hg 01/21/2025 Weight 143 lbs 01/21/2025 BMI 27.92 kg/m2 01/21/2025 Encounters Encounter Location Date Provider Diagnosis [address] [address] 02/26/2024 Yarely Perica Tinea pedis of both feet B35.3 ; Type 2 diabetes mellitus with diabetic peripheral angiopathy without gangrene E11.51 ; Tinea unguium B35.1 ; Pain in left toe(s) M79.675 and Pain in right toe(s) M79.[address] [address] 07/09/2024 Yarely Perica Tinea pedis of both feet B35.3 ; Type 2 diabetes mellitus with diabetic peripheral angiopathy without gangrene E11.51 ; Tinea unguium B35.1 ; Pain in left toe(s) M79.675 and Pain in right toe(s) M79.[address] [address] 09/17/2024 Yarely Perica Tinea pedis of both feet B35.3 ; Type 2 diabetes mellitus with diabetic peripheral angiopathy without gangrene E11.51 ; Tinea unguium B35.1 ; Pain in left toe(s) M79.675 ; Pain in right toe(s) M79.674 and Xerosis cutis L85.[address] [address] 01/21/2025 Yarely Perica Tinea pedis of both feet B35.3 ; Other hammer toe(s) (acquired), right foot M20.41 ; Type 2 diabetes mellitus with diabetic peripheral angiopathy without gangrene E11.51 ; Tinea unguium B35.1 ; Pain in left toe(s) M79.675 ; Pain in right toe(s) M79.674 ; Xerosis cutis L85.3 and Other hammer toe(s) (acquired), left foot M20.42 [facility] [address] [address] 05/26/2024 Yarely Perica [facility] [address] [address] 05/27/2024 Yarely Perica [facility] [address] [address] 07/02/2024 Yarely Perica [facility] [address] [address] 12/02/2024 Yarely Perica [facility] [address] [address] 01/21/2025 Yarely Gibbs Assessments Encounter Date Diagnosis [...] Details Provider Name:Yarely puckett, 04/14/2025 01:30:00 PM, [address] [place] [address], [phone], Insurance Providers Payer Name Payer Address Payer Phone Subscriber Number Group Number Insured Name Patient Relationship to Insured Coverage Start Date Coverage End Date [facility] [id number] [place] [phone] [id number] Alicia Noel Self - patient is the [...] days - changed wa ter pills 04/11 [facility]- low blood pressure - water pill sta yed 2 days 03/07/2021
--- OUTSIDE RECORDS SUMMARY | 2025-01-30 15:27 | XMS_ITS ---
Author Organization [facility] [place] Address [address] [place] [address] Care Team Providers Care Resident Programs Assistant Name Role Phone Martell Astorga MDneth Primary Care Provider Yarely Medina Unavailable [phone] REASON FOR VISIT sooner appt Encounters Encounter Location Date Provider Diagnosis [address] [address] 01/21/2025 Yarely Gibbs Plan Of Treatment Next Appt Details Provider Name:Yarely puckett, 04/14/2025 01:30:00 PM, [address] [place], [address], Progress Notes * Alicia DUONGDOB:1945 (79 yo F)Acc No.[id number]:01/21/2025 Patient:?Alicia DUONG :1945???Age:79 Y???Sex:Female Address:[address], [place], [address] * true * Date:? Generated for Printi ng/Farikg/eTransmitting on:?01/30/2025 03:26 PM EDT
[2025-01-30 15:28] VITALS: BP 122/64
[2025-01-30 15:56] LABS: MANUAL DIFF FLAG NO
[2025-01-30 15:58] LABS: Basophils Percent Auto 0.3 % (0-2); Eosinophils Absolute Auto 0.1 X10*3/uL (0.0-0.4); Hematocrit 33.1 % (37.0-47.0); Imm Gran Abs Auto 0.02 X10*3/uL (0.00-0.03); Imm Gran Pct Auto 0.3 % (0.0-0.4); Lymphocytes Absolute Auto 1.1 X10*3/uL (1.2-4.9); Lymphocytes Percent Auto 18.4 % (20-40); Mean Corpuscular HGB Conc 33.2 g/dl (31.0-35.0); Mean Corpuscular Hemoglobin 31.2 pg (27.0-33.0); Mean Corpuscular Volume 93.8 fL (80.0-98.0); Mean Platelet Volume 11.5 fL (9.4-12.3); Monocytes Absolute Auto 0.8 X10*3/uL (0.1-1.2); Monocytes Percent Auto 13.6 % (2-11); Neutrophils Absolute Auto 3.9 x10*3/uL (2.0-8.3); Neutrophils Percent Auto 66.4 % (45-73); Platelet Count 180 X10*3/uL (160-400); Red Blood Count 3.53 X10*6/uL (4.20-5.50); Red Cell Distribution Width 13.6 % (11.0-16.0); White Blood Count 5.9 X10*3/uL (4.8-10.8)
[2025-01-30 16:12] LABS: Alanine Aminotransferase 20 U/L (0-31); Albumin Level 3.9 g/dL (3.5-5.0); Alkaline Phosphatase 114 U/L (39-117); Anion Gap 12 (12-20); Aspartate Amino Transferase 27 U/L (5-31); Bilirubin Total 0.9 mg/dL (0.0-1.0); Blood Urea Nitrogen 49 mg/dL (9-16); Calcium 9.5 mg/dL (8.4-10.2); Carbon Dioxide 24 mmol/L (22-29); Chloride 106 mmol/L (96-108); Creatinine Clr Calc Pharmacy 17.2; Estimated Glomerular Filt Rate 21; Glucose Random 174 mg/dL (60-115); Sodium 137 mmol/L (135-145); Total Protein 7.1 g/dL (6.5-8.0)
[2025-01-30 16:17] LABS: B Type Natriuretic Peptide 109 pg/mL (<100)
[2025-01-30 16:18] LABS: Troponin-I High Sensitivity 7.8 ng/L (<3.5-17.0)
[2025-01-30 16:29] VITALS: BP 139/43; PULSE 53; RESP 12; TEMP 36; O2SAT 99
[2025-01-30 16:34] LABS: Erythrocyte Sedimentation Rate 46 MM/HR (0-20)
[2025-01-30 16:38] LABS: Influenza A PCR NEGATIVE (Negative); Influenza B PCR NEGATIVE (Negative); Resp Syncy Virus RNA Qual PCR NEGATIVE (Negative); SARS COV2 PCR INHOUSE NEGATIVE (Negative)
--- NOTE | 2025-01-30 17:06 | ED_ITS ---
HPI - General Adult General Chief complaint: General Medical Stated complaint: DIZZY/WEAK,FACE TONGUE SWELLING PER EMS Time Seen by Provider: 01/30/25 17:06 History of Present Illness ED Provider: Juanito ABDULLAHI narrative: The patient is an 79-year-old female who reports that she has had a lot of medication changes related to her diabetes. She is on 2 new medications Actabose and Tradjenta. She has been on these medications for less than a month. The patient says that during the last week she has been experiencing unusual numbness in her tongue and face in the mornings. She has also had some crampiness in her lower legs. She comes to the emergency room because she is concerned that she has had these symptoms every morning for the last several days and wonders if this could be some kind of a drug reaction from these new medications. Related Data Home Medications ?Medication ?Instructions ?Recorded ?Confirmed acetaminophen 500 mg tablet 500 mg PO .TWICE A DAY PRN Pain 08/16/20 12/25/24 (Tylenol Extra Strength) alprazolam 0.5 mg tablet 0.5 mg PO BID PRN Anxiety 08/16/20 12/25/24 buspirone 7.5 mg tablet 7.5 mg PO DAILY 08/16/20 12/25/24 ciclopirox 0.77 % topical cream 1 applic topical BID 02/22/21 12/25/24 propylene glycol 0.6 % eye drops 1 drp ophthalmic (eye) BID PRN Dry 08/06/21 12/25/24 (Systane Balance) Eye(S) Previous Rx's ?Medication ?Instructions ?Recorded multivitamin with minerals-folic 1 tab PO DAILY #90 tabs 06/12/23 acid 200 mcg chewable tablet (Adult Multivitamin Gummies) compr.stocking,knee,long,large #2 ea 09/27/23 gloves #1 ea 06/12/24 incontinent liners #1 ea 06/12/24 methylcellulose (laxative) 500 mg 500 mg PO DAILY #30 tabs 07/08/24 tablet (Citrucel) sennosides 8.6 mg tablet 17.2 mg (2 x 8.6 mg) PO DAILY 10/13/24 constipation #180 tabs blood sugar diagnostic (OneTouch #100 strips 11/21/24 Ultra Test strips) clotrimazole-betamethasone 1 1 appl topical BID PRN rash #30 11/21/24 %-0.05 % topical cream grams lancets 33 gauge (Elieruch Delica #200 ea 11/21/24 Plus Lancet) linagliptin 5 mg tablet (Tradjenta) 5 mg PO DAILY 30 days #30 tabs 12/09/24 acarbose 25 mg tablet 25 mg PO DAILY 30 days #30 tabs 01/13/25 rosuvastatin 40 mg tablet 40 mg PO DAILY 90 days #90 tabs 01/22/25 carvedilol 6.25 mg tablet 6.25 mg PO BID 90 days #180 tabs 01/23/25 pantoprazole 20 mg tablet,delayed 20 mg PO DAILY #90 tabs 01/23/25 release spironolactone 25 mg tablet 25 mg PO BEDTIME 90 days #90 tabs 01/23/25 (Aldactone) Allergies Allergy/AdvReac Type Severity Reaction Status Date / Time aspirin [Aspirin] Allergy Severe MOUTH Verified 01/30/25 14:50 SWELLING hydrochlorothiazide Allergy Intermediate DROP IN Verified 01/30/25 14:50 [Hydrochlorothiazide] BLOOD PRESSURE Penicillins [PENICILLINS] Allergy Intermediate ITCHING Verified 01/30/25 14:50 caffeine [Caffeine] Allergy Mild NERVOUSNESS Verified 01/30/25 14:50 lisinopril [Lisinopril] Allergy Mild CHANGES IN Verified 01/30/25 14:50 BLOOD PRESSURE ranitidine [RANITIDINE] Allergy Mild HEADACHE Verified 01/30/25 14:50 amlodipine [AMLODIPINE] Allergy Unknown UNKNOWN Verified 01/30/25 14:50 amoxicillin Allergy Unknown itching, Verified 01/30/25 14:50 severe with rash diclofenac Allergy Unknown Unknown Verified 01/30/25 14:50 escitalopram Allergy Unknown abdominal Verified 01/30/25 14:50 discomfort, drowsiness esomeprazole [Nexium] Allergy Unknown Unknown Verified 01/30/25 14:50 isosorbide [ISOSORBIDE] Allergy Unknown UNKNOWN Verified 01/30/25 14:50 lidocaine [Lidoderm] Allergy Unknown weakness Verified 01/30/25 14:50 mirtazapine Allergy Unknown Unknown Verified 01/30/25 14:50 nystatin Allergy Unknown rash Verified 01/30/25 14:50 sertraline [SERTRALINE] Allergy Unknown UNKNOWN Verified 01/30/25 14:50 dexlansoprazole AdvReac Severe AGITATION Verified 01/30/25 14:50 [From DEXILANT] hydrocortisone AdvReac Mild RAISES Verified 01/30/25 14:50 [From Cortizone-10] BLOOD SUGAR topiramate [From TOPAMAX] AdvReac Unknown AGITATION Verified 01/30/25 14:50 From PLAVIX Allergy Unknown PT UNSURE Uncoded 01/29/25 10:50 OF REACTION Medical tape Allergy Unknown Rash Uncoded 01/29/25 10:50 Review of Systems 2 Review of Systems: Yes all other systems are reviewed and are negative FOR[facility]LY [facility], [facility] Past Medical History Medical History Left bundle branch block Type 2 diabetes mellitus with chronic kidney disease Chronic kidney disease, stage 4 (severe) Type 2 diabetes mellitus Obesity Skin abrasion HARRIET (renal artery stenosis) Nonischemic cardiomyopathy Urinary incontinence GERD (gastroesophageal reflux disease) COVID-19 Pneumonia due to COVID-19 virus Vertigo Obesity (BMI 30-39.9) Depression Anxiety Stasis edema of both lower extremities Cardiomyopathy Pure hypercholesterolemia Hyperkalemia Renal artery stenosis Benign essential hypertension Conjunctival hemorrhage of right eye Surgical History Hx of colonoscopy Hx of myomectomy History of cataract surgery History of lumpectomy of left breast History of cholecystectomy Family History Family History Father CVD (cardiovascular disease) Myocardial infarction Mother Myocardial infarction CVD (cardiovascular disease) Brother Myocardial infarction Family/Other FH: prostate cancer Social History Social History Household Members: None Housing: Apartment Do you presently have visiting nurse or other home services: No Alcohol intake: never Patient Tobacco Use Status: Former Tobacco user Tobacco use type: Cigarette Smoked in Last 30 Days: No e-Cigarette/Vaping Use: Never Used Second Hand Smoke Exposure: No Use of substances other than those prescribed or required for medical reasons: No Advance Directives: Yes Advance Directives on File: Yes Advance Directives Date on File: 08/06/21 service: No Current occupational status: disabled Cognitive needs: No Hearing needs: No Vision needs: Yes Physical Exam ED Vital Signs: Vital Signs - 24 hr 01/30/25 14:41 01/30/25 15:28 01/30/25 16:29 Temperature 97.4 F 96.8 F Pulse Rate 72 53 Respiratory Rate 18 12 Blood Pressure 176/70 H 122/64 139/43 L Pulse Oximetry 98 99 Oxygen Delivery Method Room Air Room Air 01/30/25 18:38 01/30/25 18:40 Temperature 97.1 F 97.1 F Pulse Rate 65 65 Respiratory Rate 16 16 Blood Pressure 138/48 L 138/48 L Pulse Oximetry 99 99 Oxygen Delivery Method Room Air Room Air BMI result Body Mass Index 27.1 Const Other: The patient is a pleasant 79-year-old woman who was very talkative. She does not appear in acute distress. HENMT Other: Face is symmetrical. Mucous membranes are moist. No intraoral abnormalities. No intraoral swelling. I do not appreciate any definite edema to the face. There is no edema to the lips or tongue. Eyes General: appearance normal, both eyes and all related structures Conjunctivae: conjunctivae normal Pupils: Equal, round and reactive pupils present EOM: EOMs intact bilaterally Neck Neck: Yes full ROM, Yes no lymphadenopathy and Yes no JVD Resp Effort & Inspection: normal respiratory effort Auscultation: clear to auscultation bilaterally Cardio Rate: regular rate Rhythm: regular rhythm Heart sounds: S1 normal heart sound present and S2 normal heart sound present GI Other: Abdomen is soft and nontender Skin Other: Skin is dry and unremarkable although there is some mild nonpitting edema of the lower legs near the ankles. Neuro Other: The patient is awake and alert with a normal mental status. Pupils are round equal, extraocular movements are intact, face is symmetrical, tongue is midline. Speech is clear, she moves her extremities symmetrically and normally with normal strength and sensation. She seems neurologically intact. Cranial nerves: Yes Equal, round and reactive pupils present Extrem Other: Some mild nonpitting edema to the lower legs near the ankles. Medical Decision Making Medical Decision Making [facility] Narrative: The patient is an 79-year-old woman who has a variety of different complaints including symptoms of numbness to the face that she has been experiencing in the mornings for the last 4 days. She also feels that her upper face is somewhat swollen although I do not appreciate any definite edema. She has also had pains and cramps in her legs intermittently. Clinically the patient looks well and has unremarkable vital signs. I do not feel her EKG is significantly different from previous EKGs. She has a normal troponin. Her BNP is slightly elevated today but she seems to have a fairly labile BNP. Her renal function is stable. Overall I do not feel the patient is showing obvious signs of any kind of drug reaction and I do not feel she is showing any signs of a stroke. I reassured the patient that I thought that she seemed medically stable and she seemed comfortable with the prospect of being discharged. Lab Data 01/30/25 15:50 01/30/25 15:50 Labs: Lab Results 01/30/25 01/30/25 01/30/25 Range/Units 15:49 15:50 17:04 WBC 5.9 (4.8-10.8) X10*3/uL RBC 3.53 L (4.20-5.50) X10*6/uL Hgb 11.0 L (12.0-16.0) g/dl Hct 33.1 L (37.0-47.0) % MCV 93.8 (80.0-98.0) fL MCH 31.2 (27.0-33.0) pg MCHC 33.2 (31.0-35.0) g/dl RDW 13.6 (11.0-16.0) % Plt Count 180 (160-400) X10*3/uL MPV 11.5 (9.4-12.3) fL Immature Gran % (Auto) 0.3 (0.0-0.4) % Neut % (Auto) 66.4 (45-73) % Lymph % (Auto) 18.4 L (20-40) % [place] % (Auto) 13.6 H (2-11) % Eos % (Auto) 1.0 (0-4) % Baso % (Auto) 0.3 (0-2) % Lymph # (Auto) 1.1 L (1.2-4.9) X10*3/uL [place] # (Auto) 0.8 (0.1-1.2) X10*3/uL Eos # (Auto) 0.1 (0.0-0.4) X10*3/uL Baso # (Auto) 0.0 (0.0-0.2) X10*3/uL Abs Immat Gran (auto) 0.02 (0.00-0.03) X10*3/uL Absolute Neuts (auto) 3.9 (2.0-8.3) x10*3/uL Absolute Nucleated RBC 0.000 (0.0-0.012) X10*3/uL Nucleated RBC % (auto) 0.0 (0.0-0.2) /100WBC ESR 46 H (0-20) MM/HR Sodium 137 (135-145) mmol/L Potassium 5.0 (3.3-5.1) mmol/L Chloride 106 (96-108) mmol/L Carbon Dioxide 24 (22-29) mmol/L Anion Gap 12 (12-20) BUN 49 H (9-16) mg/dL Creatinine 2.21 H (0.5-1.4) mg/dL Estim Creat Clear Calc 17.2 Estimated GFR 21 POC Glucose 129 H (60-115) mg/dL Random Glucose 174 H (60-115) mg/dL Calcium 9.5 (8.4-10.2) mg/dL Total Bilirubin 0.9 (0.0-1.0) mg/dL AST 27 (5-31) U/L ALT 20 (0-31) U/L Alkaline Phosphatase 114 (39-117) U/L Troponin I High Sens 7.8 (<3.5-17.0) ng/L B-Natriuretic Peptide 109 H (<100) pg/mL Total Protein 7.1 (6.5-8.0) g/dL Albumin 3.9 (3.5-5.0) g/dL Influenza Type A (PCR) NEGATIVE (Negative) Influenza Type B (PCR) NEGATIVE (Negative) RSV RNA Qual (PCR) NEGATIVE (Negative) SARS-CoV-2 RNA (RT-PCR) NEGATIVE (Negative) Independent Interpretation I performed an independent interpretation of an: EKG Interpretation: EKG at 15:09 showed sinus bradycardia with a left bundle branch block. The left bundle branch block is old. Overall I feel the morphology is fairly similar to previous EKGs. Discharge Plan Discharge Clinical Impression: Facial numbness, Numbness of tongue, Bilateral leg cramps, Chronic kidney disease Type 2 diabetes mellitus Qualifiers: 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 detention insulin use: without detention use 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 complication status: with kidney complications 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 complication detail: with chronic kidney disease Chronic kidney disease stage: s tage 4 (severe) Qualified Code(s): E11.22 - Type 2 diabetes mellitus with diabetic chronic kidney disease Patient Disposition: Home, Self-Care Additional Instructions: Your testing in the emergency room today seems reassuring. For the moment I would continue your current medications. Please follow up with the endocrinology office to discuss possibly changing your diabetes medications. Please also follow up with your regular doctor and your kidney doctor. Return to the emergency room if you feel significantly worse. Prescriptions: No Action Adult Multivitamin Gummies 200 mcg tablet,chewable 1 tab PO DAILY Qty: 90 1RF (DME) gloves medium See Rx Instructions .Route .MEDSUPPLY Qty: 1 3RF Rx Instructions: As directed (DME) incontinent liners See Rx Instructions .Route .MEDSUPPLY Qty: 1 0RF Rx Instructions: As directed rosuvastatin 40 mg tablet 40 mg PO DAILY 90 Days Qty: 90 1RF pantoprazole 20 mg tablet,delayed release (DR/EC) 20 mg PO DAILY Qty: 90 1RF spironolactone [Aldactone] 25 mg tablet 25 mg PO BEDTIME 90 Days Qty: 90 1RF carvedilol 6.25 mg tablet 6.25 mg PO BID 90 Days Qty: 180 1RF ciclopirox 0.77 % cream 1 applic topical BID Systane Balance 0.6 % Drops 1 drp OPHTHALMIC (EYE) BID PRN (Reason: Dry Eye(S)) buspirone 7.5 mg tablet 7.5 mg PO DAILY alprazolam 0.5 mg tablet 0.5 mg PO BID PRN (Reason: Anxiety) acetaminophen [Tylenol Extra Strength] 500 mg tablet 500 mg PO .TWICE A DAY PRN (Reason: Pain) (DME) compr.stocking,knee,long,large Misc See Rx Instructions .Route Qty: 2 0RF Rx Instructions: As directed Citrucel 500 mg tablet 500 mg PO DAILY Qty: 30 2RF Rx Instructions: take it with full glass of water sennosides 8.6 mg tablet 17.2 mg PO DAILY Qty: 180 4RF clotrimazole-betamethasone 1-0.05 % cream 1 appl topical BID PRN (Reason: rash) Qty: 30 2RF (DME) OneTouch Ultra Test Strip See Rx Instructions .ROUTE .COMPLEX Qty: 100 5RF Dose Instruction: USE DIRECTED TO TEST BLOOD SUGAR FOUR TIMES DAILY Rx Instructions: USE DIRECTED TO TEST BLOOD SUGAR FOUR TIMES DAILY (DME) lancets [OneTouch Delica Plus Lancet] 33 gauge misc See Rx Instructions .ROUTE .COMPLEX Qty: 200 5RF Dose Instruction: USE FOUR TIMES DAILY Rx Instructions: USE FOUR TIMES DAILY Tradjenta 5 mg tablet 5 mg PO DAILY 30 Days Qty: 30 1RF acarbose 25 mg tablet 25 mg PO DAILY 30 Days Qty: 30 10RF Rx Instructions: with breakfast meal Referrals: Boaz Astorga MD [Primary Care Provider] - Michael Madrigal MD [Physician] - Tammy Flower NP [Nurse Practitioner] - Interventions: ED Discharge Assessment Last Done: 01/30/25 18:40 Discharge Date/Time: 01/30/25 18:41 Print Language: Tunisian
[2025-01-30 17:07] LABS: Glucose, Whole Blood 129 mg/dL (60-115)
--- NOTE | 2025-01-30 17:09 | PC.NURSE ---
Addendum entered by Debra Riggins RN 01/30/25 18:12: pt neuro intact Original Note: patient a&ox3, vss,donkey ride operator intact nsr-sb. labs previously drawn, poc obtained-wnl,pt has 2+ pitting edema to ble, rr equal/non labored, lungs clear. pt awaiting provider evaluation, plan of care ongoing
[2025-01-30 18:38] VITALS: BP 138/48; PULSE 65; RESP 16; TEMP 36.2; O2SAT 99
--- NOTE | 2025-01-30 18:39 | PC.NURSE ---
patient a&ox3, ambulatory with steady gait with cane, pt to discharge home and follow up with providers, vss, lungs clear/rr equal/non labored.
[2025-01-30 18:40] VITALS: BP 138/48; PULSE 65; RESP 16; TEMP 36.2; O2SAT 99
== END 2025-01-30 18:41 | disposition home or self-care (01) ==
PROVIDERS: Emergency Provider Emergency Medicine; PCP Internal Medicine
DX: R42 Dizziness and giddiness (principal); E11.22 Type 2 diabetes mellitus with diabetic chronic kidney disease; R20.0 Anesthesia of skin; R25.2 Cramp and spasm; R07.89 Other chest pain; I44.7 Left bundle-branch block, unspecified; R10.2 Pelvic and perineal pain; R00.1 Bradycardia, unspecified; Z03.818 Encounter for observation for suspected exposure to other biological agents ruled out; Z79.4 Long term (current) use of insulin; Z79.899 Other long term (current) drug therapy
CPT/HCPCS: 0241U; 36415; 80053; 82947; 83880; 84484; 85025; 85652; 93005; 99283; 99284

== ENCOUNTER → 2025-01-30 14:51 | Outpatient (BNV) | payer OTHER, SELFPAY | PROVIDERS: Emergency Provider Emergency Medicine; PCP Internal Medicine; Visit Provider Internal Medicine Cardiovascular Disease | DX: I44.7 Left bundle-branch block, unspecified (principal); R00.1 Bradycardia, unspecified | CPT/HCPCS: 93010 ==

== ENCOUNTER 2025-02-04 12:48 | Outpatient (AMB) | payer OTHER, SELFPAY ==
--- NOTE | 2025-02-04 13:16 | MHC.AMNUTRGE ---
VS Expanded 02/04/25 13:17 Height 5 ft Weight 137 lb 5.568 oz BMI 26.8 Intake Visit Reasons: T2DM Allergies aspirin [Aspirin] Allergy (Severe, Verified 02/19/25 12:49) MOUTH SWELLING hydrochlorothiazide [Hydrochlorothiazide] Allergy (Intermediate, Verified 02/19/25 12:49) DROP IN BLOOD PRESSURE Penicillins [PENICILLINS] Allergy (Intermediate, Verified 02/19/25 12:49) ITCHING caffeine [Caffeine] Allergy (Mild, Verified 02/19/25 12:49) NERVOUSNESS lisinopril [Lisinopril] Allergy (Mild, Verified 02/19/25 12:49) CHANGES IN BLOOD PRESSURE ranitidine [RANITIDINE] Allergy (Mild, Verified 02/19/25 12:49) HEADACHE amlodipine [AMLODIPINE] Allergy (Unknown, Verified 02/19/25:49) UNKNOWN amoxicillin Allergy (Unknown, Verified 02/19/25 12:49) itching, severe with rash diclofenac Allergy (Unknown, Verified 02/19/25:49) Unknown escitalopram Allergy (Unknown, Verified 02/19/25:49) abdominal discomfort, drowsiness esomeprazole [Nexium] Allergy (Unknown, Verified 02/19/25 12:49) Unknown isosorbide [ISOSORBIDE] Allergy (Unknown, Verified 02/19/25:49) UNKNOWN lidocaine [Lidoderm] Allergy (Unknown, Verified 02/19/25:49) weakness mirtazapine Allergy (Unknown, Verified 02/19/25 12:49) Unknown nystatin Allergy (Unknown, Verified 02/19/25 12:49) rash sertraline [SERTRALINE] Allergy (Unknown, Verified 02/19/25 12:49) UNKNOWN dexlansoprazole [From DEXILANT] Adverse Reaction (Severe, Verified 02/19/25 12:49) AGITATION hydrocortisone [From Cortizone-10] Adverse Reaction (Mild, Verified 02/19/25 12:49) RAISES BLOOD SUGAR topiramate [From TOPAMAX] Adverse Reaction (Unknown, Verified 02/19/25 12:49) AGITATION trajenta Allergy (Severe, Uncoded 02/19/25 12:49) numbness From PLAVIX Allergy (Unknown, Uncoded 02/19/25 12:49) PT UNSURE OF REACTION Medical tape Allergy (Unknown, Uncoded 02/19/25 12:49) Rash Nutrition Presentation Details: Pt presents for MNT f/u for T2DM Pt reports having 3 -4 meal/day , doing well snack at 4 -5 am : handful of cheerios plain 10 am breakfast : sand (ham/cheese or plain bread with coffee) 1pm : soup or root veg with fish or sand , water or milk 4pm : same as lunch 8pm : fruit or crackers iwth peanut butter Reports drinking water with meals or snacks or a cup of milk working on reducing sugars/from pastries and similar foods, BS Monitoring Most Recent Diabetes Results: Microalb/Creat Ratio 52.7 ug/mg cr (<30) H 02/11/25 Cholesterol 135 mg/dL (<200) 02/11/25 HDL Cholesterol 54 mg/dL (>40) 02/11/25 Triglycerides 56 mg/dL (<150) 02/11/25 Creatinine 2.55 mg/dL (0.5-1.4) H 02/11/25 Blood Urea Nitrogen 44 mg/dL (9-16) H 02/11/25 Sodium 137 mmol/L (135-145) 02/11/25 Potassium 4.4 mmol/L (3.3-5.1) 02/11/25 Chloride 106 mmol/L (96-108) 02/11/25 Carbon Dioxide 23 mmol/L (22-29) 02/11/25 Calcium 9.9 mg/dL (8.4-10.2) 02/11/25 AST 27 U/L (5-31) 02/11/25 ALT 17 U/L (0-31) 02/11/25 Total Protein 8.0 g/dL (6.5-8.0) 02/11/25 Albumin 4.5 g/dL (3.5-5.0) 02/11/25 [facility] Medical History Left bundle branch block Type 2 diabetes mellitus with chronic kidney disease Chronic kidney disease, stage 4 (severe) Type 2 diabetes mellitus Obesity Skin abrasion HARRIET (renal artery stenosis) Nonischemic cardiomyopathy Urinary incontinence GERD (gastroesophageal reflux disease) COVID-19 Pneumonia due to COVID-19 virus Vertigo Obesity (BMI 30-39.9) Depression Anxiety Stasis edema of both lower extremities Cardiomyopathy Pure hypercholesterolemia Hyperkalemia Renal artery stenosis Benign essential hypertension Conjunctival hemorrhage of right eye Surgical History Hx of colonoscopy Hx of myomectomy History of cataract surgery History of lumpectomy of left breast History of cholecystectomy Family History Father CVD (cardiovascular disease) Myocardial infarction Mother Myocardial infarction CVD (cardiovascular disease) Brother Myocardial infarction Family/Other FH: prostate cancer Social History Household Members: None Housing: Apartment Do you presently have visiting nurse or other home services: No Alcohol intake: never Patient Tobacco Use Status: Former Tobacco user Tobacco use type: Cigarette e-Cigarette/Vaping Use: Never Used Second Hand Smoke Exposure: No Advance Directives Date on File: 08/06/21 service: No Current occupational status: disabled Cognitive needs: No Hearing needs: No Vision needs: Yes Assessment & Plan Assessment & Plan (1) Type 2 diabetes mellitus with chronic kidney disease: Code(s): E11.22 - Type 2 diabetes mellitus with diabetic chronic kidney disease Category: Medical Qualifiers: Chronic kidney disease stage: stage 4 (severe) 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 Qualified Code(s): E11.22 - Type 2 diabetes mellitus with diabetic chronic kidney disease; N18.4 - Chronic kidney disease, stage 4 (severe) Plan: Wt: 61 Kg ( 11/15 ), 62 kg(02/13) Est kcal needs as per MSJ: 1400 (40% carb, 30% protein/fat) Est fluid needs as per 25-30 ml/d: 1800 Est prot per day as per 1 g/kg bw: 61 Recommend fiber intake : 8-10 g per day and gradually increase to 25-28 g per day for women and 35-38 g for men or as tolerated Recommend sodium intake per day : less than 2000 mg Educated patient on: ( R = reviewed V = verbalizes understanding N/R = needs review N/A = not applicable Food sources of carbohydrate, adequate serving sizes and its role in various health conditions: R Differences between complex carbohydrates a simple carbohydrates, role of fiber in diet: R Lean protein sources of foods: R Differences between types of fats and role in diet (mono on saturated fat fatty acids, saturated fatty acids, trans fats): R V N/R Food sources of sodium in salt and healthy modifications for heart health in kidney health: R V R/V Vitamins and minerals: R V N/R Healthy plate method concept: R V N/R Physical activity: Benefits a precaution: R V N/R Hypoglycemia protocol (rule of 15): R V N/R Dietary prevention of Hyperglycemia: R Patient Instructions: Have a cup of milk at 5am (combination of protein /carb) in place of plain carbs follow healthy plate method at meal time dilute juices with water Coding Level of Care Code Nutr Indiv Subseq (17231) Diagnoses Type 2 diabetes mellitus with stage 4 chronic kidney disease, without long-term current use of insulin E11.22; N18.4 Chronic kidney disease stage: stage 4 (severe) 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
[2025-02-04 13:17] VITALS: BMI 26.8
--- OUTSIDE RECORDS SUMMARY | 2025-02-04 15:09 | XMS_ITS | Patient Health Record ---
Author Organization [facility] [place] Address [address] [address] Care Team Providers Care Gas Engine Mechanic Name Role Phone Rizwan SORENSON, Boaz Primary Care Provider Yarely Medina Unavailable [phone] Allergies Allergen (clinical drug ingredient) Drug/Non Drug [...] Boaz Referring Provider Last Name Rizwan Referred [facility] Referred Provider Yarely Gibbs Referred Address [address],[place], [place],[address],[place] Referred Provider Specialty Podiatry Referral Priority Routine [...] Once a day Not-Taking Multivitamin Active Nystatin 350532 UNIT/GM 1 application Externally Twice a day [...] Problem Acquired hammer toe of right foot (14930396958486 05) Other hammer toe(s) (acquired), right foot (M20.41) Active confirmed Problem Type 2 diabetes mellitus with peripheral angiopathy (354217915) Type 2 diabetes mellitus with diabetic peripheral angiopathy without gangrene (E11.51) Active confirmed Problem Acquired hammer toe of left foot (68314326488678 03) Other hammer toe(s) (acquired), left foot (M20.42) Active confirmed Vital Signs Blood pressure diastolic 77 mm Hg 01/21/2025 Height 5 ft in 01/21/2025 Blood pressure systolic 120 mm Hg 01/21/2025 Weight 143 lbs 01/21/2025 BMI 27.92 kg/m2 01/21/2025 Encounters Encounter Location Date Provider Diagnosis [address] [address] 02/26/2024 Yarely Perica Tinea pedis of both feet B35.3 ; Type 2 diabetes mellitus with diabetic peripheral angiopathy without gangrene E11.51 ; Tinea unguium B35.1 ; Pain in left toe(s) M79.675 and Pain in right toe(s) M79.[address] [address] 07/09/2024 Yarely Perica Tinea pedis of both feet B35.3 ; Type 2 diabetes mellitus with diabetic peripheral angiopathy without gangrene E11.51 ; Tinea unguium B35.1 ; Pain in left toe(s) M79.675 and Pain in right toe(s) M79.[address] [address] 09/17/2024 Yarely Perica Tinea pedis of both feet B35.3 ; Type 2 diabetes mellitus with diabetic peripheral angiopathy without gangrene E11.51 ; Tinea unguium B35.1 ; Pain in left toe(s) M79.675 ; Pain in right toe(s) M79.674 and Xerosis cutis L85.[address] [address] 01/21/2025 Yarely Perica Tinea pedis of both feet B35.3 ; Other hammer toe(s) (acquired), right foot M20.41 ; Type 2 diabetes mellitus with diabetic peripheral angiopathy without gangrene E11.51 ; Tinea unguium B35.1 ; Pain in left toe(s) M79.675 ; Pain in right toe(s) M79.674 ; Xerosis cutis L85.3 and Other hammer toe(s) (acquired), left foot M20.42 [facility] [address] [address] 05/26/2024 Yarely Perica [facility] [address] [address] 05/27/2024 Yarely Perica [facility] [address] [address] 07/02/2024 Yarely Perica [facility] [address] [address] 12/02/2024 Yarely Perica [facility] [address] [address] 01/21/2025 Yarely Gibbs Assessments Encounter Date Diagnosis [...] Details Provider Name:Yarely puckett, 04/14/2025 01:30:00 PM, [address] [place] [address], [phone], Insurance Providers Payer Name Payer Address Payer Phone Subscriber Number Group Number Insured Name Patient Relationship to Insured Coverage Start Date Coverage End Date [facility] [address] [place] [phone] [id number] Alicia Noel Self - patient is the [...] days - changed wa ter pills 04/11 [facility]- low blood pressure - water pill sta yed 2 days 03/07/2021
--- OUTSIDE RECORDS SUMMARY | 2025-02-04 15:09 | XMS_ITS ---
Author Organization [facility] rubina [place] Address [address] [place] [address] Care Team Providers Care Crystal Growing Technician Name Role Phone Martell Astorga MDneth Primary Care Provider Yarely Medina Unavailable [phone] REASON FOR VISIT sooner appt Encounters Encounter Location Date Provider Diagnosis [address] [address] 01/21/2025 Yarely Gibbs Plan Of Treatment Next Appt Details Provider Name:Yarely puckett, 04/14/2025 01:30:00 PM, [address] [place] [address], [phone], Progress Notes * Alicia DUONGDOB:1945 (79 yo F)Acc No.[id number]:01/21/2025 Patient:?Alicia DUONG :1945???Age:79 Y???Sex:Female Address:[address], [place], [address] * true * Date:? Generated for Printi ng/Farikg/eTransmitting on:?02/04/2025 03:09 PM EDT
--- OUTSIDE RECORDS SUMMARY | 2025-02-04 15:09 | XMS_ITS | Clinical Summary ---
Author Organization [facility] Address [address] [place] [address] Phone Care Team Providers Care Child Abuse Worker Name Role Phone Boaz Astorga MD Primary Care Provider [phone] Allergies Active Allergy Reactions Criticality Noted Date [...] Ye ars (1 of 2 - PCV) 1964 Diabetes: Hemoglobin A1C 12/15/2021 Diabetes: Ophthalmology Exam 12/15/2021 Diabetes: Pedal Pulse Checked 12/15/2021 Diabetes: Sensory Foot Exam 12/15/2021 Diabetes: Visual Foot Exam 12/15/2021 Influenza Vaccine (Season Ended) 2025 08/22/20 Hepatitis B Vaccine Aged Out No longe r eligible based on patient's age to complete this topic Insurance [employer] [facility] ([id number]) [employer] [facility] ([id number]) Care Teams Child Abuse Worker Relationship Specialty Start Date End Date Boaz Astorga MD [address] [place] [address] PCP - General 11/01/20
--- OUTSIDE RECORDS SUMMARY | 2025-02-04 15:09 | XMS_ITS ---
Author Organization [facility] Address [address] [place] [address] Care Team Providers Care Carpet Repairer Name Role Phone Boaz Astorga MD Primary Care Provider Yarely Medina Unavailable [phone] Medications Medication SIG (Take, Route, Frequency, Duration) [...] day for 30 days 06/06/2023 Active Nystatin 686645 UNIT/GM 1 application Externally Twice a day [...] Active Encounters Encounter Location Date Provider Diagnosis [facility] [address] [address] 12/02/2024 Yarely Gibbs Plan Of Treatment Next Appt Details Provider Name:Yarely puckett, 04/14/2025 01:30:00 PM, [address] [place] [address], [phone], Progress Notes * Alicia DUONGDOB:1945 (79 yo F)Acc No.[id number]:12/02/2024 Progress Note Patient:?Alicia DUONG Provider:?Yarely Gibbs DPM :1945???Age:79 Y???Sex:Female D ate:12/02/2024 Address:[address] [place], [place] [id number] Pcp:Boaz Astorga MD Subjective: * Chief Complaints: [...] needed Twice a day , Not-Taking/PRN Nystatin 428800 UNIT/GM Cream 1 application Externally Twice a [...] DPM Date:?08/2025 Generated for Mary Ann baca/Suzy/Ventura on:?02/04/2025 03:08 PM EDT History and Physical Notes * HPI (History of Present Illness) Category Sub-Category Detail Notes Category Not es At Risk footcare Pt States Last PCP Visit: Date: 4
--- OUTSIDE RECORDS SUMMARY | 2025-02-04 15:09 | XMS_ITS ---
Author Organization [facility] [place] Address [address] [facility] [place] [address] Care Team Providers Care Psych Tech Name Role Phone Boaz Astorga MD Primary Care Provider Yarely Medina Unavailable [phone] Allergies Allergen (clinical drug ingredient) Drug/Non Drug [...] day for 30 days Not-Erick ng Nystatin 204350 UNIT/GM 1 application Externally Twice a day [...] Problem Acquired hammer toe of right foot (9419426867158 105) Other hammer toe(s) (acquired), right foot (M20.41) Active confirmed Problem Acquired hammer toe of left foot (3378417254475 103) Other hammer toe(s) (acquired), left foot (M20.42) Active confirmed Vital Signs Height 5 ft in 01/21/2025 Weight 143 lbs 01/21/2025 BMI 27.92 kg/m2 01/21/2025 Blood pressure systolic 120 mm Hg 01/22/20 25 Blood pressure diastolic 77 mm Hg 025 Encounters Encounter Location Date Provider Diagnosis [facility] [address] [address] 01/21/2025 Yarely Gibbs Tinea pedis of both [...] Reason: Provider Name:Yarely puckett, 04/14/2025 01:30:00 PM, [address] [place] [address], [id number], Procedure Notes * Category Sub-Category Detail [...] use of a nail nipper and/or dremel-type drier and grinder tender, to a more viable healthy nail plate [...] to maintain effectiveness in symptomatic relief - 08529 Keratoma Treatment Parring or Cutting o f [...] instrumentation by the physician of record - 79567 Progress Notes * Alicia DUONGDOB:1945 (79 yo F)Acc No.[id number]:01/21/2025 Progress Note Patient:?Alicia DUONG Provider:?Yarely Gibbs DPM :1945???Age:79 Y???Sex:Female D ate:01/21/2025 Address:[address] [place], [place] [id number] Pcp:Boaz Astorga MD Subjective: * Chief Complaints: [...] pressure - water pill stayed 2 days 03/07/2021[facility]- blood pressure- 2 days - changed water pills 04/11[facility]- High BP -3 days * Family History:?Mother: [...] Externally as needed Twice a day Nystatin 406734 UNIT/GM Cream 1 application Externally Twice a [...] as needed Twice a day Not-Taking/PRN Nystatin 647205 UNIT/GM Cream 1 application Externally Twice a day Not-Taking/PRN Ciclopirox Olamine 0.77 % Cream 1 application to affected area Externally to feet Twice a day Medication List reviewed and reconciled with the patient * Allergies:?AspirinAmoxicillinAdhesiveLisinoprilHydrochlorothiazideCortisoneAmlod ipineIsosorbide DinitrateRanitidine 75NexiumCaffeineTopamaxDexilantSertralineDiclofenacEscitalopram OxalateMirtazapineNystatinWater Pills: Low blood pressure - Side EffectsBactrim: kidney issuesyes[Allergies Verified] Objective: * Vitals:?Ht: 5 ft, Wt: 143, B CO: 27.92, Shoe size: 8W, BP: 120/77 mm [...] use of a nail nipper and/or dremel-type drier and grinder tender, to a more viable healthy nail plate [...] to maintain effectiveness in symptomatic relief - 39058.?Keratoma Treatment:?Parring or Cutting of Benign Hyperkeratotic Lesion(s)?(-57) [...] instrumentation by the physician of record - 41922.? * Procedure Codes:?35570 DEBRI DE NAIL, 6 OR MORE, Modifiers: XS 34894 TRIM SKIN LESIONS, OVER 4, Modifiers: XS [...] GrangerM Date:?11/2024 Generated for Mary Ann baca/Suzy/Jonathonitting on:?02/04/2025 03:09 PM EDT History and Physical Notes * [...]
--- OUTSIDE RECORDS SUMMARY | 2025-02-04 15:09 | XMS_ITS | Continuity of Care Document ---
Author Organization [facility] [address] [place] [address] Phone [phone] Care Team Providers Care Photoengraving Etcher Apprentice Name Role Phone Boaz Astorga Care Team Information Nurse Paralegal [phone] Problems Active Problems Provider Date Anxiety Ricci [...] 02/08/2024 Clotrimazole/Betameth asone Dipropionate1-0.05% Cream Aplique Al Madelaine Afectada Topically Dos Veces Al D A Cu[place] Necesario For Bola Rizwan, Boaz Rosuvastatin Xzfaicl44uz Tablets [place] Sejal Tableta Todos Los D as Riz[place], Boaz Alprazolam0.5mg Tablets [place] Sejal Tableta Dos Veces Al D A [place] Necesario Unknown Pantoprazole Yxvqxt93ws Tablets DR [place] Sejal Tableta Todos Los D as [place], Boaz Buspirone HCL7.5mg Tablets [place] Sejal Tableta Todos Los D as Unknown Onetouch Delica Plus Lancets Extra Fine 33GPlus 33G Misc Use Four Times Daily Rizwan, Boaz Focnkmjzbqibej56tq Tablets [place] Sejal Tableta Todos Los D as Al Acostarse [place], Boaz Onetouch UltraStrips Use as Directed To Test Blood Sugar Four Times Daily Rizwan, Boaz Carvedilol6.25mg Tablets [place] Sejal Tableta Dos Veces Al D A Rizwan, Boaz Vital Signs Date Vital Result Comment 02/03/2025 3:10pm BP Systolic 118 mmHg BP Diastolic 80 mmHg Heart Rate 61 /min Height 60 inches 5'0 Weight 137.25 lb BMI (Body Mass Index) 26.8 kg/m2 Results Test Acquired Date Facility Test Result H/L Range N ote Glucose Fingerstick 02/03/2025 Inhouse Glucose Fingerstick 161 Hemoglobin A1c 02/03/2025 Inhouse Hemoglobin A1c 7.9% Glucose Fingerstick 05/09/2024 Inhouse Glucose Fingerstick 185 Hemoglobin A1c 05/09/2024 Inhouse Hemoglobin A1c 7.9% Glucose Fingerstick 03/06/2024 Inhouse Glucose Fingerstick 193 Glucose Fingerstick 02/05/2024 Inhouse Glucose Fingerstick 195 Hemoglobin A1c 02/05/2024 Inhouse Hemoglobin A1c 8.1% Glucose Fingerstick 08/27/2023 Inhouse Glucose Fingerstick 180 Hemoglobin A1c 08/27/2023 Inhouse Hemoglobin A1c 8.1% Medical Devices Description No Information Available Encounters Type Date Location Provider Dx Diagnosis Office Visit 05/09/2024 1:00p Main Office AGUSTIN Lynch E11.9 Type 2 diabet es mellitus without complications E78.00 Pure hypercholestero lemia, unspecified Assessments Date Code Description Provider 02/03/2025 E11.9 Type 2 diabetes mellitus wit hout complications AGUSTIN Lynch 05/09/2024 E11.9 Type 2 diabetes mellitus wit hout complications AGUSTIN Lynch 05/09/2024 E78.00 Hypercholesterolemia AGUSTIN Lynch Plan of Treatment Future Appointment(s):* 05/07/2025 10:15 am - AGUSTIN Lynch at Main Office 02/03/2025 - AGUSTIN Lynch* E11.9 Type 2 diabetes mellitus without complications Functional Status Description No Information Available Mental Status Description No Information Available Referrals Refer to Dr Reason for Referral Status Appt Ricci Carrion M.D. Created [address] [place] [address] Drive [address] [place] [address] [phone]
== END 2025-02-04 13:41 | disposition home or self-care (01) ==
LOC: HO.ENCR 12:48
PROVIDERS: PCP Internal Medicine; Visit Provider Dietitian, Registered
DX: E11.22 Type 2 diabetes mellitus with diabetic chronic kidney disease (principal); N18.4 Chronic kidney disease, stage 4 (severe)

== ENCOUNTER → 2025-02-04 12:48 | Outpatient (BNVA) | payer OTHER, SELFPAY | PROVIDERS: PCP Internal Medicine; Visit Provider Dietitian, Registered | DX: E11.22 Type 2 diabetes mellitus with diabetic chronic kidney disease (principal); N18.4 Chronic kidney disease, stage 4 (severe); N25.81 Secondary hyperparathyroidism of renal origin; I15.0 Renovascular hypertension | CPT/HCPCS: 97803; 99212 ==

== ENCOUNTER 2025-02-04 14:18 | Outpatient (AMB) | payer OTHER, SELFPAY ==
--- NOTE | 2025-02-04 15:06 | HO.NEPHOV_ITS ---
Vital Signs 02/04/25 15:13 Height 5 ft Weight 139 lb 2 oz BMI 27.2 BP 150/64 H Blood Pressure Location Rt brachial Position Sitting Pulse 71 Pulse Source Pulse Oximeter Pulse Oximetry (%) 98 Oxygen Delivery Method Room Air Intake Visit Reasons: ER FU Siderographist Required: No Accompanied by: Self / Same As Patient Allergies aspirin [Aspirin] Allergy (Severe, Verified 02/04/25 15:13) MOUTH SWELLING hydrochlorothiazide [Hydrochlorothiazide] Allergy (Intermediate, Verified 02/04/25 15:13) DROP IN BLOOD PRESSURE Penicillins [PENICILLINS] Allergy (Intermediate, Verified 02/04/25 15:13) ITCHING caffeine [Caffeine] Allergy (Mild, Verified 02/04/25 15:13) NERVOUSNESS lisinopril [Lisinopril] Allergy (Mild, Verified 02/04/25 15:13) CHANGES IN BLOOD PRESSURE ranitidine [RANITIDINE] Allergy (Mild, Verified 02/04/25 15:13) HEADACHE amlodipine [AMLODIPINE] Allergy (Unknown, Verified 02/04/25 15:13) UNKNOWN amoxicillin Allergy (Unknown, Verified 02/04/25 15:13) itching, severe with rash diclofenac Allergy (Unknown, Verified 02/04/25 15:13) Unknown escitalopram Allergy (Unknown, Verified 02/04/25 15:13) abdominal discomfort, drowsiness esomeprazole [Nexium] Allergy (Unknown, Verified 02/04/25 15:13) Unknown isosorbide [ISOSORBIDE] Allergy (Unknown, Verified 02/04/25 15:13) UNKNOWN lidocaine [Lidoderm] Allergy (Unknown, Verified 02/04/25 15:13) weakness mirtazapine Allergy (Unknown, Verified 02/04/25 15:13) Unknown nystatin Allergy (Unknown, Verified 02/04/25 15:13) rash sertraline [SERTRALINE] Allergy (Unknown, Verified 02/04/25 15:13) UNKNOWN dexlansoprazole [From DEXILANT] Adverse Reaction (Severe, Verified 02/04/25 15:13) AGITATION hydrocortisone [From Cortizone-10] Adverse Reaction (Mild, Verified 02/04/25 15:13) RAISES BLOOD SUGAR topiramate [From TOPAMAX] Adverse Reaction (Unknown, Verified 02/04/25 15:13) AGITATION From PLAVIX Allergy (Unknown, Uncoded 01/29/25 10:50) PT UNSURE OF REACTION Medical tape Allergy (Unknown, Uncoded 01/29/25 10:50) Rash HPI Comments Details: Alicia was seen in follow for her advanced CKD. She is known to have DM for a long time. She has been started on DPP4 and Acarbose recently. She had a questionable allergy reaction to it and was seen in ER where her DPP4 was D/John. Her BS is fluctuant. She also has hypertension. She does not take NSAID's regularly. She denies any nausea, vomiting, diarrhea, SOB, edema, PND, orthopnea, hematuria, hearing deficits. She claims to be compliant with medicat ions. She is not on SGLT2i. She has no sinusitis, epistaxis, photosensitivity, bone pain, sore throat , hemoptysis, skin lesions or recent antibiotic intake. Her BP at home has been at goal. She denied any other active complaints at the time of this office visit [facility] Medical History Left bundle branch block Type 2 diabetes mellitus with chronic kidney disease Chronic kidney disease, stage 4 (severe) Type 2 diabetes mellitus Obesity Skin abrasion HARRIET (renal artery stenosis) Nonischemic cardiomyopathy Urinary incontinence GERD (gastroesophageal reflux disease) COVID-19 Pneumonia due to COVID-19 virus Vertigo Obesity (BMI 30-39.9) Depression Anxiety Stasis edema of both lower extremities Cardiomyopathy Pure hypercholesterolemia Hyperkalemia Renal artery stenosis Benign essential hypertension Conjunctival hemorrhage of right eye Surgical History Hx of colonoscopy Hx of myomectomy History of cataract surgery History of lumpectomy of left breast History of cholecystectomy Family History Father CVD (cardiovascular disease) Myocardial infarction Mother Myocardial infarction CVD (cardiovascular disease) Brother Myocardial infarction Family/Other FH: prostate cancer Social History Household Members: None Housing: Apartment Do you presently have visiting nurse or other home services: No Alcohol intake: never Patient Tobacco Use Status: Former Tobacco user Tobacco use type: Cigarette e-Cigarette/Vaping Use: Never Used Second Hand Smoke Exposure: No Advance Directives Date on File: 08/06/21 service: No Current occupational status: disabled Cognitive needs: No Hearing needs: No Vision needs: Yes Review of Systems Const All systems reviewed & are unremarkable except as noted in HPI and below Physical Exam Vital Signs: Last Vital Signs Pulse 71 02/04/25 15:13 BP 150/64 H 02/04/25 15:13 Pulse Ox 98 02/04/25 15:13 Oxygen Delivery Method Room Air 02/04/25 15:13 BMI result Body Mass Index 27.2 Const General: comfortable and no acute distress Orientation/consciousness: patient oriented x3 HEENT Head: Yes normocephalic Mouth: Normal oral and palatal mucosa present Eyes EOM: EOMs intact bilaterally Neck Neck: Yes supple Resp Auscultation: clear to auscultation bilaterally Cardio Jugular venous distension: no JVD Rate: regular rate GI Palpation (GI): Soft to palpation Auscultation: normal bowel sounds General: Yes no CVA tenderness Back/Spine/Pelvis Back: no CVA tenderness Skin General skin exam: no rashes or lesions noted Neuro General: patient oriented x3 and moves all extremities Extrem General: Yes no pedal edema Results Reviewed Nephrology Results: Hgb 11.0 g/dl (12.0-16.0) L 01/30/25 WBC 5.9 X10*3/uL (4.8-10.8) 01/30/25 Plt Count 180 X10*3/uL (160-400) 01/30/25 Sodium 137 mmol/L (135-145) 01/30/25 Potassium 5.0 mmol/L (3.3-5.1) 01/30/25 Chloride 106 mmol/L (96-108) 01/30/25 Carbon Dioxide 24 mmol/L (22-29) 01/30/25 BUN 49 mg/dL (9-16) H 01/30/25 Creatinine 2.21 mg/dL (0.5-1.4) H 01/30/25 Calcium 9.5 mg/dL (8.4-10.2) 01/30/25 Urine Protein 30 (1+) mg/dL (Neg-Trace) H 01/02/25 Assessment & Plan Assessment & Plan (1) Type 2 diabetes mellitus with chronic kidney disease: Code(s): E11.22 - Type 2 diabetes mellitus with diabetic chronic kidney disease Category: Medical Qualifiers: 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 Chronic kidney disease stage: stage 4 (severe) Qualified Code(s): E11.22 - Type 2 diabetes mellitus with diabetic chronic kidney disease; N18.4 - Chronic kidney disease, stage 4 (severe) (2) Secondary hyperparathyroidism (of renal origin): Code(s): N25.81 - Secondary hyperparathyroidism of renal origin Category: Medical (3) Hypertension: Code(s): I10 - Essential (primary) hypertension Category: Medical Qualifiers: Hypertension type: renovascular hypertension Qualified Code(s): I15.0 - Renovascular hypertension (4) Chronic kidney disease, stage 4 (severe): Code(s): N18.4 - Chronic kidney disease, stage 4 (severe) Category: Medical Plan BP at goal at home. On statins; BS needs to be optimized Doppler renal arteries- No significant HARRIET Has infra renal AAA- See by Dr Araiza (Infrarenal abdominal aortic aneurysm measuring 2.7 cm. Based on published guidelines in J Am Abdoulaye Radiol 2013; 10(10):789-794 and J Vasc Surg. 2018; 67:2-77, the recommendation for an abdominal aorta with diameter 2.6-2.9 cm is follow-up every 5 years if the aorta that meets the criteria for AAA (>1.5 x proximal normal segment; no f/u if < 1.5 x proximal normal segment; no f/u for aorta < 2.6 cm) Has 24 hour urine for cr cl-- stable Aware about renal replacement if her renal func declines Follow up labs ordered; F/U in 2 months Orders: Orders Complete Blood Count Auto Diff 2 Months E11.22 - Type 2 diabetes mellitus with diabetic chronic kidney disease, I15.0 - Renovascular hypertension, N18.4 - Chronic kidney disease, stage 4 (severe), N25.81 - Secondary hyperparathyroidism of renal origin Ferritin 2 Months E11.22 - Type 2 diabetes mellitus with diabetic chronic kidney disease, I15.0 - Renovascular hypertension, N18.4 - Chronic kidney disease, stage 4 (severe), N25.81 - Secondary hyperparathyroidism of renal origin IRON PROFILE 2 Months E11.22 - Type 2 diabetes mellitus with diabetic chronic kidney disease, I15.0 - Renovascular hypertension, N18.4 - Chronic kidney disease, stage 4 (severe), N25.81 - Secondary hyperparathyroidism of renal origin Creatinine 2 Months E11.22 - Type 2 diabetes mellitus with diabetic chronic kidney disease, I15.0 - Renovascular hypertension, N18.4 - Chronic kidney disease, stage 4 (severe), N25.81 - Secondary hyperparathyroidism of renal origin Blood Urea Nitrogen 2 Months E11.22 - Type 2 diabetes mellitus with diabetic chronic kidney disease, I15.0 - Renovascular hypertension, N18.4 - Chronic kidney disease, stage 4 (severe), N25.81 - Secondary hyperparathyroidism of renal origin Phosphorus 2 Months E11.22 - Type 2 diabetes mellitus with diabetic chronic kidney disease, I15.0 - Renovascular hypertension, N18.4 - Chronic kidney disease, stage 4 (severe), N25.81 - Secondary hyperparathyroidism of renal origin Electrolytes 2 Months E11.22 - Type 2 diabetes mellitus with diabetic chronic kidney disease, I15.0 - Renovascular hypertension, N18.4 - Chronic kidney disease, stage 4 (severe), N25.81 - Secondary hyperparathyroidism of renal origin Calcium 2 Months E11.22 - Type 2 diabetes mellitus with diabetic chronic kidney disease, I15.0 - Renovascular hypertension, N18.4 - Chronic kidney disease, stage 4 (severe), N25.81 - Secondary hyperparathyroidism of renal origin Coding Level of Care Code Est Pt Level 4 (89770) Diagnoses Type 2 diabetes mellitus with stage 4 chronic kidney disease, without long-term current use of insulin ; N18.4 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
[2025-02-04 15:13] VITALS: BP 150/64; PULSE 71; O2SAT 98; BMI 27.2
--- OUTSIDE RECORDS SUMMARY | 2025-02-04 17:03 | XMS_ITS | Clinical Summary ---
Author Organization [facility] Address [address] [place] [address] Phone Care Team Providers Care Prospecting Observer Name Role Phone Boaz Astorga MD Primary Care Provider [phone] Allergies Active Allergy Reactions Criticality Noted Date [...] patient's age to complete this topic Insurance [employer] [facility] ([id number]) [employer] [facility] ([id number]) Care Teams Prospecting Observer Relationship Specialty Start Date End Date Boaz Astorga MD [address] [place] [address] PCP - General 11/01/20
--- OUTSIDE RECORDS SUMMARY | 2025-02-04 17:03 | XMS_ITS | Continuity of Care Document ---
Author Organization [facility] [address] [place] [address] Phone [phone] Care Team Providers Care Bioprocess Engineer Name Role Phone Boaz Astorga Care Team Information Metal Treater [phone] Problems Active Problems Provider Date Anxiety Ricci [...] Smoking Status Reviewed: 08/27/23 Never Smoked Cigaret amirta ETOH Use Never used alcohol Allergies and [...] Sea Necesario For Bola Rizwan, Boaz Rosuvastatin Itakwks38hx Tablets [place]ium Sejal Tableta Todos Los D as Riz[place], Boaz Alprazolam0.5mg Tablets [place]ium Sejal Tableta Dos Veces Al D A [place] Necesario Unknown Pantoprazole Gthrnc91of Tablets DR Lithium Sejal Tableta Todos Los D as Rizwan, Boaz Buspirone HCL7.5mg Tablets [place] Sejal Tableta Todos Los D as Unknown Onetouch Delica Plus Lancets Extra Fine 33GPlus 33G Misc Use Four Times Daily Rizwan, Boaz Vsyounhszkwhen44su Tablets Lithium Sejal Tableta Todos Los D as Al Acostarse Riz[place], Boaz Onetouch UltraStrips Use as Directed To Test Blood Sugar Four Times Daily Rizwan, Boaz Carvedilol6.25mg Tablets Lithium Sejal Tableta Dos Veces Al D A [...] Referral Status Appt Ricci Carrion M.D. Created [address] [place] [address] Drive [address] [place] [address] [phone]
== END 2025-02-04 15:48 | disposition home or self-care (01) ==
LOC: HO.HKA 14:18
PROVIDERS: PCP Internal Medicine; Visit Provider Internal Medicine Nephrology
DX: I12.9 Hypertensive chronic kidney disease with stage 1 through stage 4 chronic kidney disease, or unspecified chronic kidney disease (principal); E11.22 Type 2 diabetes mellitus with diabetic chronic kidney disease; N18.4 Chronic kidney disease, stage 4 (severe); N25.81 Secondary hyperparathyroidism of renal origin
CPT/HCPCS: 99214

== ENCOUNTER 2025-02-05 13:12 | Outpatient (AMB) | payer OTHER, SELFPAY ==
--- NOTE | 2025-02-05 13:17 | A.OFFVIS_ITS ---
Vital Signs 02/05/25 13:23 Height 5 ft Weight 139 lb 8.842 oz BMI 27.3 BP 120/64 Blood Pressure Location Rt brachial Position Sitting Pulse 61 Pulse Source Pulse Oximeter Pulse Oximetry (%) 100 Oxygen Delivery Method Room Air Intake Visit Reasons: T2DM Intake Note: Patient presents today for a follow-up on Type 2 Diabetes Mellitus. Last Diabetic eye exam was on: 01/2024, DUE?? Last Podiatry exam was on: 08/2024 Most recent HbA1c: 8.4%, 01/29/2025 Random Glucose- 213 mg/dL, Today Account Executive Metalworking Required: No Accompanied by: telesales consultant Allergies aspirin (Aspirin) Allergy (Severe, Verified 04/08/25 15:27) MOUTH SWELLING hydrochlorothiazide (Hydrochlorothiazide) Allergy (Intermediate, Verified 04/08/25 15:27) DROP IN BLOOD PRESSURE Penicillins (PENICILLINS) Allergy (Intermediate, Verified 04/08/25 15:27) ITCHING caffeine (Caffeine) Allergy (Mild, Verified 04/08/25 15:27) NERVOUSNESS lisinopril (Lisinopril) Allergy (Mild, Verified 04/08/25 15:27) CHANGES IN BLOOD PRESSURE ranitidine (RANITIDINE) Allergy (Mild, Verified 04/08/25 15:27) HEADACHE amlodipine (AMLODIPINE) Allergy (Unknown, Verified 04/08/25 15:27) UNKNOWN amoxicillin Allergy (Unknown, Verified 04/08/25 15:27) itching, severe with rash diclofenac Allergy (Unknown, Verified 04/08/25 15:27) Unknown escitalopram Allergy (Unknown, Verified 04/08/25 15:27) abdominal discomfort, drowsiness esomeprazole (Nexium) Allergy (Unknown, Verified 04/08/25 15:27) Unknown isosorbide (ISOSORBIDE) Allergy (Unknown, Verified 04/08/25 15:27) UNKNOWN lidocaine (Lidoderm) Allergy (Unknown, Verified 04/08/25 15:27) weakness mirtazapine Allergy (Unknown, Verified 04/08/25 15:27) Unknown nystatin Allergy (Unknown, Verified 04/08/25 15:27) rash sertraline (SERTRALINE) Allergy (Unknown, Verified 04/08/25 15:27) UNKNOWN dexlansoprazole (From DEXILANT) Adverse Reaction (Severe, Verified 04/08/25 15:27) AGITATION hydrocortisone (From Cortizone-10) Adverse Reaction (Mild, Verified 04/08/25 15:27) RAISES BLOOD SUGAR semaglutide (From Ozempic) Adverse Reaction (Mild, Verified 04/17/25 14:12) gerd topiramate (From TOPAMAX) Adverse Reaction (Unknown, Verified 04/08/25 15:27) AGITATION trajenta Allergy (Severe, Uncoded 02/19/25 12:49) numbness From PLAVIX Allergy (Unknown, Uncoded 02/19/25 12:49) PT UNSURE OF REACTION Medical tape Allergy (Unknown, Uncoded 02/19/25 12:49) Rash HPI Comments Details: [age] YO female who is seen in f/u for T2DM at the request of PCP. She was seen in consult 12/19/24 at which time Ozempic was stopped because she was experiencing GERD symptoms and felt she was losing too much weight. Since then the GERD is better and her weight loss has stabilized. 8.4% 01/29/25. in the office. HgbA1c 11/05/24 7.9 %, 12/09/2019 7.5% Initially diagnosed with T2DM: had gestational diabetes developed in her 50's. Was initially started on treatment with:metformin januvia had weight gain Trulicity: not effective had side effect Gi symptoms, weakness Ozempic was stopped secondary to weight loss and gerd Current regimen: trajenta 5mg takes at lunh acarbose 25 mg at breakfast Checks glucose 1-2 times per day Most readings in the am are in good range higher later in the day Has numbness on the right side of her mouth which started last night She had a headache last night which has resolved. The numbness has also resolved Has eyes checked yearly, last eye exam 01/2024 denies retinopathy. Followed by Dr. Hanna Denies neuropathy, no numbness, tinging or pain, has occasional cramping in legs. last foot exam today, sees podiatry folllowed every 2-3 months was just seen last week Has nephropathy, not on mar-arb (allergy). 01/02/25 eGFR 20 She is followed by Dr. Madrigal Has HLD, on statin Last LDL 68 as measured on 10/3024 Has cardiomyopathy followed regularly by cardiology recent echo 12/2024 ejection fraction 40-45% stress test has been ordered by Cardiology Diet: balanced recently seen by [facility] Weight: Has lost weight No recent CDE, she declines as she has recently seen [facility] Medical History Left bundle branch block Type 2 diabetes mellitus with chronic kidney disease Chronic kidney disease, stage 4 (severe) Type 2 diabetes mellitus Obesity Skin abrasion HARRIET (renal artery stenosis) Nonischemic cardiomyopathy Urinary incontinence GERD (gastroesophageal reflux disease) COVID-19 Pneumonia due to COVID-19 virus Vertigo Obesity (BMI 30-39.9) Depression Anxiety Stasis edema of both lower extremities Cardiomyopathy Pure hypercholesterolemia Hyperkalemia Renal artery stenosis Benign essential hypertension Conjunctival hemorrhage of right eye Surgical History Hx of colonoscopy Hx of myomectomy History of cataract surgery History of lumpectomy of left breast History of cholecystectomy Family History Father CVD (cardiovascular disease) Myocardial infarction Mother Myocardial infarction CVD (cardiovascular disease) Brother Myocardial infarction Family/Other FH: prostate cancer Social History Household Members: None Housing: Apartment Do you presently have visiting nurse or other home services: No Alcohol intake: never Patient Tobacco Use Status: Former Tobacco user Tobacco use type: Cigarette e-Cigarette/Vaping Use: Never Used Second Hand Smoke Exposure: No Advance Directives Date on File: 08/06/21 service: No Current occupational status: disabled Cognitive needs: No Hearing needs: No Vision needs: Yes Physical Exam Vital Signs: Last Vital Signs Pulse 61 02/05/25 13:23 BP 120/64 02/05/25 13:23 Pulse Ox 100 02/05/25 13:23 Oxygen Delivery Method Room Air 02/05/25 13:23 BMI result Body Mass Index 27.3 Const Other: Absence of Cushingoid features. Absence of acromegalic features. Neck exam reveals nl size thyroid about 15 gms. No thyroid nodules palpable. Heart S1 S2, Reg R/R. No M/R G. Skin exam reveals absence of vitiligo or acanthosis nigricans. Cranial nerves 2-12 intact Alert and oriented gait stable Results Reviewed Results Reviewed: Laboratory Last Values Glucose (Clinic) 213 mg/dL (60-115) H 02/05/25 13:33 Assessment & Plan Assessment & Plan (1) Type 2 diabetes mellitus: Code(s): E11.9 - Type 2 diabetes mellitus without complications Category: Medical Qualifiers: 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 tank terminal gauger insulin use: without care home use 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 complication status: with kidney complications 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 complication detail: with chronic kidney disease Chronic kidney disease stage: stage 4 (severe) Qualified Code(s): E11.22 - Type 2 diabetes mellitus with diabetic chronic kidney disease; N18.4 - Chronic kidney disease, stage 4 (severe) Plan: Type 2 diabetic with multiple intolerances to oral medication and GLP 1 agonist. We will start her on low-dose Lantus 6 units. Reviewed onset of action and need to follow sugars in always carry a sugar source. She will go over to [facility] today and have training in insulin pen and administration. She was advised that if the numbness that she had very brief reoccurs or any change in mental status she should contact her PCP/go to the ER. Orders: Referrals Diabetes Education Referral E11.22 - Type 2 diabetes mellitus with diabetic chronic kidney disease, N18.4 - Chronic kidney disease, stage 4 (severe) Medications: New Lantus Solostar U-100 Insulin (insulin glargine) 6 units (0.06 mL) subcut QPM 3 mL 6RF NS pen needle, diabetic daily use 50 ea 6RF NS Coding Level of Care Code Est Pt Level 4 (18097) Complex EM visit Add On G2211 Diagnoses Type 2 diabetes mellitus with stage 4 chronic kidney disease, without long-term current use of insulin E11.22; N18.4 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 care home insulin use: without care home use 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 complication status: with kidney complications 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 complication detail: with chronic kidney disease Chronic kidney disease stage: stage 4 (severe) Time Spent (min) 30 Comment Time spent reviewing labs/provider notes, face to face, chart doc
[2025-02-05 13:23] VITALS: BP 120/64; PULSE 61; O2SAT 100; BMI 27.3
[2025-02-05 13:39] LABS: Glucose, Whole Blood 213 mg/dL (60-115)
--- OUTSIDE RECORDS SUMMARY | 2025-02-05 16:12 | XMS_ITS | Patient Health Record ---
Author Organization [facility] [place] Address [address] [place] [address] Care Team Providers Care Newspaper Deliverer Name Role Phone Rizwan SORENSON, Boaz Primary Care Provider Yarely Medina Unavailable [phone] Allergies Allergen (clinical drug ingredient) Drug/Non Drug [...] Boaz Referring Provider Last Name Rizwan Referred [facility] Referred Provider Yarely Gibbs Referred Address [address],[place],[address],[place] Referred Provider Specialty Podiatry Referral Priority Routine [...] Once a day Not-Taking Multivitamin Active Nystatin 372220 UNIT/GM 1 application Externally Twice a day [...] Problem Acquired hammer toe of right foot (92620351563453 05) Other hammer toe(s) (acquired), right foot (M20.41) Active confirmed Problem Type 2 diabetes mellitus with peripheral angiopathy (425634788) Type 2 diabetes mellitus with diabetic peripheral angiopathy without gangrene (E11.51) Active confirmed Problem Acquired hammer toe of left foot (13580638832680 03) Other hammer toe(s) (acquired), left foot (M20.42) Active confirmed Vital Signs Blood pressure diastolic 77 mm Hg 01/21/2025 Height 5 ft in 01/21/2025 Blood pressure systolic 120 mm Hg 01/21/2025 Weight 143 lbs 01/21/2025 BMI 27.92 kg/m2 01/21/2025 Encounters Encounter Location Date Provider Diagnosis [address] [address] 02/26/2024 Yarely Perica Tinea pedis of both feet B35.3 ; Type 2 diabetes mellitus with diabetic peripheral angiopathy without gangrene E11.51 ; Tinea unguium B35.1 ; Pain in left toe(s) M79.675 and Pain in right toe(s) M79.[address] [address] 07/09/2024 Yarely Perica Tinea pedis of both feet B35.3 ; Type 2 diabetes mellitus with diabetic peripheral angiopathy without gangrene E11.51 ; Tinea unguium B35.1 ; Pain in left toe(s) M79.675 and Pain in right toe(s) M79.[address] [address] 09/17/2024 Yarely Perica Tinea pedis of both feet B35.3 ; Type 2 diabetes mellitus with diabetic peripheral angiopathy without gangrene E11.51 ; Tinea unguium B35.1 ; Pain in left toe(s) M79.675 ; Pain in right toe(s) M79.674 and Xerosis cutis L85.[address] [address] 01/21/2025 Yarely Perica Tinea pedis of both feet B35.3 ; Other hammer toe(s) (acquired), right foot M20.41 ; Type 2 diabetes mellitus with diabetic peripheral angiopathy without gangrene E11.51 ; Tinea unguium B35.1 ; Pain in left toe(s) M79.675 ; Pain in right toe(s) M79.674 ; Xerosis cutis L85.3 and Other hammer toe(s) (acquired), left foot M20.42 [facility] [address] [address] 05/26/2024 Yarely Perica [facility] [address] [address] 05/27/2024 Yarely Perica [facility] [address] [address] 07/02/2024 Yarely Perica [facility] [address] [address] 12/02/2024 Yarely Perica [facility] [address] [address] 01/21/2025 Yarely Gibbs Assessments Encounter Date Diagnosis [...] of both feet (ICD-10 - B35.3) 01/21/2025 Type 2 diabetes mellitus with diabetic peripheral angiopathy without gangrene (ICD-10 - E11.51) 09/17/2024 Tinea unguium (ICD-10 - B35.1) 07/09/2024 [...] 09/17/2024 Xerosis cutis (ICD-10 - L85.3) 01/21/2025 Pain in right toe(s) (ICD-10 - M79.674) 01/21/2025 Xerosis cutis (ICD-10 - L85.3) 01/21/2025 Other hammer toe(s) (acquired), left foot (ICD-10 - M20.42) Plan Of Treatment Pending Test Test Name Order Date X ray : Foot, left 3V 05/19/2022 X ray : Foot, left 3V 06/07/2022 Next Appt Details Provider Name:Yarely puckett, 04/14/2025 01:30:00 PM, [address] [place] [address], [address], Insurance Providers Payer Name Payer Address Payer Phone Subscriber Number Group Number Insured Name Patient Relationship to Insured Coverage Start Date Coverage End Date [facility] [address] [place] [phone] [id number] Alicia Noel Self - patient is the [...] days - changed wa ter pills 04/11 [facility]- low blood pressure - water pill sta yed 2 days 03/07/2021
--- OUTSIDE RECORDS SUMMARY | 2025-02-05 16:12 | XMS_ITS ---
Author Organization [facility] [place] rubina [place] Address [address] [place] [address] Care Team Providers Care Production Floater Name Role Phone Martell Astorga MDneth Primary Care Provider Yarely Medina Unavailable [phone] REASON FOR VISIT sooner appt Encounters Encounter Location Date Provider Diagnosis [address] [address] 01/21/2025 Yarely Gibbs Plan Of Treatment Next Appt Details Provider Name:Yarely puckett, 04/14/2025 01:30:00 PM, [address] [place], [address], Progress Notes * Alicia DUONGDOB:1945 (79 yo F)Acc No.[id number]:01/21/2025 Patient:?Alicia DUONG :1945???Age:79 Y???Sex:Female Address:[address], [place], [address] * true * Date:? Generated for Printi ng/Farikg/eTransmitting on:?02/05/2025 04:12 PM EDT
--- OUTSIDE RECORDS SUMMARY | 2025-02-05 16:12 | XMS_ITS | Clinical Summary ---
Author Organization [facility] Address [address] [place] [address] Phone Care Team Providers Care Production Support Manager Name Role Phone Boaz Astorga MD Primary Care Provider [phone] Allergies Active Allergy Reactions Criticality Noted Date [...] patient's age to complete this topic Insurance [employer] [facility] ([id number]) [employer] [facility] ([id number]) Care Teams Production Support Manager Relationship Specialty Start Date End Date Boaz Astorga MD [address] [place] [address] PCP - General 11/01/20
--- OUTSIDE RECORDS SUMMARY | 2025-02-05 16:12 | XMS_ITS ---
Author Organization [facility] Address [address] [place] [address] Care Team Providers Care Engineer Operations And Maintenance Name Role Phone Boaz Astorga MD Primary Care Provider Yarely Medina Unavailable [phone] Medications Medication SIG (Take, Route, Frequency, Duration) [...] day for 30 days 06/06/2023 Active Nystatin 806786 UNIT/GM 1 application Externally Twice a day [...] Active Encounters Encounter Location Date Provider Diagnosis [facility] [address] [address] 12/02/2024 Yarely Gibbs Plan Of Treatment Next Appt Details Provider Name:Yarely puckett, 04/14/2025 01:30:00 PM, [address] [place] [address], [address], Progress Notes * Alicia DUONGDOB:1945 (79 yo F)Acc No.[id number]:12/02/2024 Progress Note Patient:?Alicia DUONG Provider:?Yarely Gibbs DPM :1945???Age:79 Y???Sex:Female D ate:12/02/2024 Address:[address] [place], [place] [id number] Pcp:Boaz Astorga MD Subjective: * Chief Complaints: [...] needed Twice a day , Not-Taking/PRN Nystatin 243077 UNIT/GM Cream 1 application Externally Twice a [...] DPM Date:?08/2025 Generated for Mary Ann baca/Suzy/Ventura on:?02/05/2025 04:11 PM EDT History and Physical Notes * HPI (History of Present Illness) Category Sub-Category Detail Notes Category Not es At Risk footcare Pt States Last PCP Visit: Date: 4
--- OUTSIDE RECORDS SUMMARY | 2025-02-05 16:12 | XMS_ITS ---
Author Organization [facility] rubina [place] Address [address] [facility] [place] [address] Care Team Providers Care Aerodynamics Engineer Name Role Phone Boaz Astorga MD Primary Care Provider Yarely Medina Unavailable [phone] Allergies Allergen (clinical drug ingredient) Drug/Non Drug [...] day for 30 days Not-Erick ng Nystatin 424973 UNIT/GM 1 application Externally Twice a day [...] Problem Acquired hammer toe of right foot (7453231209180 105) Other hammer toe(s) (acquired), right foot (M20.41) Active confirmed Problem Acquired hammer toe of left foot (8690128468761 103) Other hammer toe(s) (acquired), left foot (M20.42) Active confirmed Vital Signs Height 5 ft in 01/21/2025 Weight 143 lbs 01/21/2025 BMI 27.92 kg/m2 01/21/2025 Blood pressure systolic 120 mm Hg 01/22/20 25 Blood pressure diastolic 77 mm Hg 025 Encounters Encounter Location Date Provider Diagnosis [facility] [address] [address] 01/21/2025 Yarely Gibbs Tinea pedis of both [...] Reason: Provider Name:Yarely puckett, 04/14/2025 01:30:00 PM, [address] [place] [address], [phone], Procedure Notes * Category Sub-Category Detail [...] use of a nail nipper and/or dremel-type back grinder, to a more viable healthy nail [...] to maintain effectiveness in symptomatic relief - 15866 Keratoma Treatment Parring or Cutting o f [...] instrumentation by the physician of record - 75732 Progress Notes * Alicia DUONGDOB:1945 (79 yo F)Acc No.[id number]:01/21/2025 Progress Note Patient:?Alicia DUONG Provider:?Yarely Gibbs DPM :1945???Age:79 Y???Sex:Female D ate:01/21/2025 Address:[address] [place], [place] [address] Pcp:Boaz Astorga MD Subjective: * Chief Complaints: [...] water pill stayed 2 days 03/07[facility] [place]- 2 days - changed water pills 04/11[facility] High BP -3 days * Family History:?Mother: [...] Externally as needed Twice a day Nystatin 477837 UNIT/GM Cream 1 application Externally Twice a [...] as needed Twice a day Not-Taking/PRN Nystatin 666899 UNIT/GM Cream 1 application Externally Twice a day Not-Taking/PRN Ciclopirox Olamine 0.77 % Cream 1 application to affected area Externally to feet Twice a day Medication List reviewed and reconciled with the patient * Allergies:?AspirinAmoxicillinAdhesiveLisinoprilHydrochlorothiazideCortisoneAmlod ipineIsosorbide DinitrateRanitidine 75NexiumCaffeineTopamaxDexilantSertralineDiclofenacEscitalopram OxalateMirtazapineNystatinWater Pills: Low blood pressure - Side EffectsBactrim: kidney issuesyes[Allergies Verified] Objective: * Vitals:?Ht: 5 ft, Wt: 143, B WY: 27.92, Shoe size: 8W, BP: 120/77 mm [...] use of a nail nipper and/or dremel-type back grinder, to a more viable healthy nail [...] to maintain effectiveness in symptomatic relief - 21001.?Keratoma Treatment:?Parring or Cutting of Benign Hyperkeratotic Lesion(s)?(-57) [...] instrumentation by the physician of record - 93695.? * Procedure Codes:?38012 DEBRI DE NAIL, 6 OR MORE, Modifiers: XS 08647 TRIM SKIN LESIONS, OVER 4, Modifiers: XS [...] Provider:?ASA GrangerM Date:?11/2024 Generated for Mary Ann baca/Suzy/Ventura on:?02/05/2025 04:12 PM EDT History and Physical Notes * [...]
== END 2025-02-05 14:36 | disposition home or self-care (01) ==
LOC: HO.ENCR 13:13
PROVIDERS: PCP Internal Medicine; Visit Provider Nurse Practitioner Adult Health
DX: E11.22 Type 2 diabetes mellitus with diabetic chronic kidney disease (principal); N18.4 Chronic kidney disease, stage 4 (severe)
CPT/HCPCS: 99214; G2211

== ENCOUNTER → 2025-02-05 13:12 | Outpatient (BNVA) | payer OTHER, SELFPAY | PROVIDERS: PCP Internal Medicine; Visit Provider Nurse Practitioner Adult Health | DX: E11.22 Type 2 diabetes mellitus with diabetic chronic kidney disease (principal); N18.4 Chronic kidney disease, stage 4 (severe) | CPT/HCPCS: 82947; 99211 ==

== ENCOUNTER 2025-02-05 14:11 | Outpatient (AMB) | payer OTHER, SELFPAY ==
--- NOTE | 2025-02-05 14:12 | A.OFFVIS_ITS ---
Intake Intake Visit Reasons: 30 min Lumber Chain Offbearer Required: No Accompanied by: Other Relationship Allergies aspirin [Aspirin] Allergy (Severe, Verified 02/05/25 13:24) MOUTH SWELLING hydrochlorothiazide [Hydrochlorothiazide] Allergy (Intermediate, Verified 02/05/25 13:24) DROP IN BLOOD PRESSURE Penicillins [PENICILLINS] Allergy (Intermediate, Verified 02/05/25 13:24) ITCHING caffeine [Caffeine] Allergy (Mild, Verified 02/05/25 13:24) NERVOUSNESS lisinopril [Lisinopril] Allergy (Mild, Verified 02/05/25 13:24) CHANGES IN BLOOD PRESSURE ranitidine [RANITIDINE] Allergy (Mild, Verified 02/05/25 13:24) HEADACHE amlodipine [AMLODIPINE] Allergy (Unknown, Verified 02/05/25 13:24) UNKNOWN amoxicillin Allergy (Unknown, Verified 02/05/25 13:24) itching, severe with rash diclofenac Allergy (Unknown, Verified 02/05/25 13:24) Unknown escitalopram Allergy (Unknown, Verified 02/05/25 13:24) abdominal discomfort, drowsiness esomeprazole [Nexium] Allergy (Unknown, Verified 02/05/25 13:24) Unknown isosorbide [ISOSORBIDE] Allergy (Unknown, Verified 02/05/25 13:24) UNKNOWN lidocaine [Lidoderm] Allergy (Unknown, Verified 02/05/25 13:24) weakness mirtazapine Allergy (Unknown, Verified 02/05/25 13:24) Unknown nystatin Allergy (Unknown, Verified 02/05/25 13:24) rash sertraline [SERTRALINE] Allergy (Unknown, Verified 02/05/25 13:24) UNKNOWN dexlansoprazole [From DEXILANT] Adverse Reaction (Severe, Verified 02/05/25 13:24) AGITATION hydrocortisone [From Cortizone-10] Adverse Reaction (Mild, Verified 02/05/25 13:24) RAISES BLOOD SUGAR topiramate [From TOPAMAX] Adverse Reaction (Unknown, Verified 02/05/25 13:24) AGITATION From PLAVIX Allergy (Unknown, Uncoded 01/29/25 10:50) PT UNSURE OF REACTION Medical tape Allergy (Unknown, Uncoded 01/29/25 10:50) Rash HPI Comprehensive Diabetes Asmnt Most Recent Diabetes Results: Hemoglobin A1c 7.4 % 05/26/20 Microalb/Creat Ratio 117.5 ug/mg cr (<30) H 07/25/24 Cholesterol 127 mg/dL (<200) 10/28/24 HDL Cholesterol 47 mg/dL (>40) 10/28/24 Triglycerides 64 mg/dL (<150) 10/28/24 Creatinine 2.21 mg/dL (0.5-1.4) H 01/30/25 Blood Urea Nitrogen 49 mg/dL (9-16) H 01/30/25 Sodium 137 mmol/L (135-145) 01/30/25 Potassium 5.0 mmol/L (3.3-5.1) 01/30/25 Chloride 106 mmol/L (96-108) 01/30/25 Carbon Dioxide 24 mmol/L (22-29) 01/30/25 Calcium 9.5 mg/dL (8.4-10.2) 01/30/25 AST 27 U/L (5-31) 01/30/25 ALT 20 U/L (0-31) 01/30/25 Total Protein 7.1 g/dL (6.5-8.0) 01/30/25 Albumin 3.9 g/dL (3.5-5.0) 01/30/25 [facility] Medical History Left bundle branch block Type 2 diabetes mellitus with chronic kidney disease Chronic kidney disease, stage 4 (severe) Type 2 diabetes mellitus Obesity Skin abrasion HARRIET (renal artery stenosis) Nonischemic cardiomyopathy Urinary incontinence GERD (gastroesophageal reflux disease) COVID-19 Pneumonia due to COVID-19 virus Vertigo Obesity (BMI 30-39.9) Depression Anxiety Stasis edema of both lower extremities Cardiomyopathy Pure hypercholesterolemia Hyperkalemia Renal artery stenosis Benign essential hypertension Conjunctival hemorrhage of right eye Surgical History Hx of colonoscopy Hx of myomectomy History of cataract surgery History of lumpectomy of left breast History of cholecystectomy Family History Father CVD (cardiovascular disease) Myocardial infarction Mother Myocardial infarction CVD (cardiovascular disease) Brother Myocardial infarction Family/Other FH: prostate cancer Social History Household Members: None Housing: Apartment Do you presently have visiting nurse or other home services: No Alcohol intake: never Patient Tobacco Use Status: Former Tobacco user Tobacco use type: Cigarette e-Cigarette/Vaping Use: Never Used Second Hand Smoke Exposure: No Advance Directives Date on File: 08/06/21 service: No Current occupational status: disabled Cognitive needs: No Hearing needs: No Vision needs: Yes Assessment & Plan Assessment & Plan (1) Type 2 diabetes mellitus: Code(s): E11.9 - Type 2 diabetes mellitus without complications Qualifiers: 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 manager long term care insulin use: without senior living use 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 complication status: with kidney complications 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 complication detail: with chronic kidney disease Chronic kidney disease stage: stage 4 (severe) Qualified Code(s): E11.22 - Type 2 diabetes mellitus with diabetic chronic kidney disease; N18.4 - Chronic kidney disease, stage 4 (severe) Plan: Insulin/Incretin?Mimetic Education visit Patient Education: Patient was instructed and provided with demonstration of the following: Insulin action and Incretin Mimetics medication storage how to set up medication pen/or syringe and vial Handwashing insulin injection site rotation Site rotation recognizing hypertrophy Testing blood glucose Removing and disposing needle from insulin pen Safe disposal of sharps Target blood sugar Signs/ symptoms/treatment of hypoglycemia/hyperglycemia I expiration of open insulin pen Patient verbalized understanding of education provided and was able to demonstrate proper use of inject into injection pillow Reviewed rule of 15s to treat glucose under 70 mg/dL All questions were answered and patient was advised to contact the office with any questions or concerns. Portions of this note were created using voice recognition software, please excuse any words or phrases that may have been misinterpreted. Patient Instructions: How to Use Your Insulin Pen Supplies you will need: alcohol, alcohol wipes, insulin pen, pen needle * Wash your hands * Remove cap from the top of the pen * Clean the top of the pen with alcohol swab * Remove paper tab from pen needle base * Screw pen needle firmly on to pen * Remove outer cover of pen needle put it aside, discard little cover from pen needle * Dial base of needle to 2 units, press and make sure you see a drip at top of needle * Check to see the dial return to zero * Dial your correct insulin dose at base of pen * Clean injection site with alcohol or hot soapy water, remember always to rotate injection sites with every injection * Inject needle at 90? angle into chosen injection site * Press the button on the bottom of the pen * After you press the button count to 10 and then remove needle from your skin * Put the large needle cap back over needle and unscrew counterclockwise to remove pen needle * Replace insulin pen cover * Write the date on the pen when you opened or expiration date. Once insulin pens are open they can be left at room temperature. Please see below: Lantus and Basaglar are good for 28 days Store unopened pens in the refrigerator until expiration date on the box. Hypoglycemia or blood glucose under 70 use the rule of 15's: If you have your blood glucose meter test your blood glucose, if you do not have your meter still follow below instruction: Keep quick-sugar foods with you at all times.? Take 15 grams of fast acting carbohydrates. Examples are 4 ounces of fruit juice or regular soda pop, 8 ounces fat-free milk, 1 tablespoon of table sugar, honey or corn syrup, jam, one miniature box of raisins, 7-8 gumdrops or Life Savers candy, 4 glucose tablets, and glucose gel.? Retest blood glucose in 15 minutes, if blood glucose is still under 80, repeat rule of 15's. If blood glucose is under 50, take 30 grams of fast acting carbohydrates If you are having hypoglycemia, or insulin reaction, more then a few times a week, call MD or perinatal educator Coding Level of Care Code Est Pt Level 1 (89102) Diagnoses Type 2 diabetes mellitus with stage 4 chronic kidney disease, without long-term current use of insulin E11.22; N18.4 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 manager long term care insulin use: without senior living use 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 complication status: with kidney complications 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 complication detail: with chronic kidney disease Chronic kidney disease stage: stage 4 (severe)
--- OUTSIDE RECORDS SUMMARY | 2025-02-05 17:15 | XMS_ITS | Clinical Summary ---
Author Organization [facility] Address [address] [place] [address] Phone Care Team Providers Care Laborer Concrete Plant Name Role Phone Boaz Astorga MD Primary Care Provider [phone] Allergies Active Allergy Reactions Criticality Noted Date [...] patient's age to complete this topic Insurance [employer] [facility] ([id number]) [employer] [facility] ([id number]) Care Teams Laborer Concrete Plant Relationship Specialty Start Date End Date Boaz Astorga MD [address] [place] [address] PCP - General 11/01/20
== END 2025-02-05 14:38 | disposition home or self-care (01) ==
LOC: HO.ENCR 14:11
PROVIDERS: PCP Internal Medicine; Visit Provider Registered Nurse Diabetes Educator
DX: E11.22 Type 2 diabetes mellitus with diabetic chronic kidney disease (principal); N18.4 Chronic kidney disease, stage 4 (severe)

== ENCOUNTER 2025-02-11 08:54 | Outpatient (REF) | payer OTHER, SELFPAY ==
[2025-02-11 09:13] LABS: MANUAL DIFF FLAG NO
--- OUTSIDE RECORDS SUMMARY | 2025-02-11 09:34 | XMS_ITS | Patient Health Record ---
Author Organization [facility] [place] [facility] [place] Address [address] [facility] [place] [address] Care Team Providers Care Hand Spray Operator Name Role Phone Rizwan SORENSON, Boaz Primary Care Provider Yarely Medina Unavailable [phone] Allergies Allergen (clinical drug ingredient) Drug/Non Drug [...] Boaz Referring Provider Last Name Rizwan Referred [facility] Referred Provider Yarely Gibbs Referred Address [address] [facility],[place],[address],[place] Referred Provider Specialty Podiatry Referral Priority Routine [...] Once a day Not-Taking Multivitamin Active Nystatin 238449 UNIT/GM 1 application Externally Twice a day [...] Problem Acquired hammer toe of right foot (64593543429545 05) Other hammer toe(s) (acquired), right foot (M20.41) Active confirmed Problem Type 2 diabetes mellitus with peripheral angiopathy (461021993) Type 2 diabetes mellitus with diabetic peripheral angiopathy without gangrene (E11.51) Active confirmed Problem Acquired hammer toe of left foot (72115159221209 03) Other hammer toe(s) (acquired), left foot (M20.42) Active confirmed Vital Signs Blood pressure diastolic 77 mm Hg 01/21/2025 Height 5 ft in 01/21/2025 Blood pressure systolic 120 mm Hg 01/21/2025 Weight 143 lbs 01/21/2025 BMI 27.92 kg/m2 01/21/2025 Encounters Encounter Location Date Provider Diagnosis [address] [address] 02/26/2024 Yarely Perica Tinea pedis of both feet B35.3 ; Type 2 diabetes mellitus with diabetic peripheral angiopathy without gangrene E11.51 ; Tinea unguium B35.1 ; Pain in left toe(s) M79.675 and Pain in right toe(s) M79.[address] [address] 07/09/2024 Yarely Perica Tinea pedis of both feet B35.3 ; Type 2 diabetes mellitus with diabetic peripheral angiopathy without gangrene E11.51 ; Tinea unguium B35.1 ; Pain in left toe(s) M79.675 and Pain in right toe(s) M79.[address] [address] 09/17/2024 Yarely Perica Tinea pedis of both feet B35.3 ; Type 2 diabetes mellitus with diabetic peripheral angiopathy without gangrene E11.51 ; Tinea unguium B35.1 ; Pain in left toe(s) M79.675 ; Pain in right toe(s) M79.674 and Xerosis cutis L85.[address] [address] 01/21/2025 Yarely Perica Tinea pedis of both feet B35.3 ; Other hammer toe(s) (acquired), right foot M20.41 ; Type 2 diabetes mellitus with diabetic peripheral angiopathy without gangrene E11.51 ; Tinea unguium B35.1 ; Pain in left toe(s) M79.675 ; Pain in right toe(s) M79.674 ; Xerosis cutis L85.3 and Other hammer toe(s) (acquired), left foot M20.42 [facility] [address] [address] 05/26/2024 Yarely Perica [facility] [address] [address] 05/27/2024 Yarely Perica [facility] [address] [address] 07/02/2024 Yarely Perica [facility] [address] [address] 12/02/2024 Yarely Perica [facility] [address] [address] 01/21/2025 Yarely Gibbs Assessments Encounter Date Diagnosis [...] Details Provider Name:Yarely puckett, 04/14/2025 01:30:00 PM, [address] [place] [address], [phone], Insurance Providers Payer Name Payer Address Payer Phone Subscriber Number Group Number Insured Name Patient Relationship to Insured Coverage Start Date Coverage End Date [facility] [address] [place] [phone] [id number] Alicia Noel Self - patient is the [...] days - changed wa ter pills 04/11 [facility]- low blood pressure - water pill sta yed 2 days 03/07/2021
--- OUTSIDE RECORDS SUMMARY | 2025-02-11 09:34 | XMS_ITS ---
Author Organization [facility] Address [address] [place] [address] Care Team Providers Care Circuit Breaker Mechanic Name Role Phone Boaz Astorga MD Primary Care Provider Yarely Medina Unavailable [phone] Medications Medication SIG (Take, Route, Frequency, Duration) [...] day for 30 days 06/06/2023 Active Nystatin 932970 UNIT/GM 1 application Externally Twice a day [...] Active Encounters Encounter Location Date Provider Diagnosis [facility] [address] [address] 12/02/2024 Yarely Gibbs Plan Of Treatment Next Appt Details Provider Name:Yarely puckett, 04/14/2025 01:30:00 PM, [address] [place] [address], [address], Progress Notes * Alicia DUONGDOB:1945 (79 yo F)Acc No.[id number]:12/02/2024 Progress Note Patient:?Alicia DUONG Provider:?Yarely Gibbs DPM :1945???Age:79 Y???Sex:Female D ate:12/02/2024 Address:[address] [place], [place] [id number] Pcp:Boaz Astorga MD Subjective: * Chief Complaints: [...] needed Twice a day , Not-Taking/PRN Nystatin 057869 UNIT/GM Cream 1 application Externally Twice a [...] DPM Date:?08/2025 Generated for Mary Ann baca/Suzy/Ventura on:?02/11/2025 09:33 AM EDT History and Physical Notes * HPI (History of Present Illness) Category Sub-Category Detail Notes Category Not es At Risk footcare Pt States Last PCP Visit: Date: 4
--- OUTSIDE RECORDS SUMMARY | 2025-02-11 09:34 | XMS_ITS | Clinical Summary ---
Author Organization [facility] Address [address] [place] [address] Phone Care Team Providers Care Mechanical Engineering Teacher Name Role Phone Boaz Astorga MD Primary Care Provider [phone] Allergies Active Allergy Reactions Criticality Noted Date [...] patient's age to complete this topic Insurance [employer] ([id number]) Edison [employer] [facility]/[employer] ([id number]) Care Teams Mechanical Engineering Teacher Relationship Specialty Start Date End Date Boaz Astorga MD [address] [place] [address] PCP - General 11/01/20
--- OUTSIDE RECORDS SUMMARY | 2025-02-11 09:34 | XMS_ITS ---
Author Organization [facility] rubina [place] Address [address] [place] [address] Care Team Providers Care Document Control Supervisor Name Role Phone Boaz Astorga MD Primary Care Provider Yarely Medina Unavailable [phone] Allergies Allergen (clinical drug ingredient) Drug/Non Drug [...] day for 30 days Not-Erick ng Nystatin 656744 UNIT/GM 1 application Externally Twice a day [...] Problem Acquired hammer toe of right foot (5115403251186 105) Other hammer toe(s) (acquired), right foot (M20.41) Active confirmed Problem Acquired hammer toe of left foot (5725131176903 103) Other hammer toe(s) (acquired), left foot (M20.42) Active confirmed Vital Signs Height 5 ft in 01/21/2025 Weight 143 lbs 01/21/2025 BMI 27.92 kg/m2 01/21/2025 Blood pressure systolic 120 mm Hg 01/22/20 25 Blood pressure diastolic 77 mm Hg 025 Encounters Encounter Location Date Provider Diagnosis [facility] [address] [address] 01/21/2025 Yarely Gibbs Tinea pedis of both [...] Reason: Provider Name:Yarely puckett, 04/14/2025 01:30:00 PM, [address] [place] [address], [phone], Procedure Notes * Category Sub-Category Detail [...] of a nail nipper and/or dremel-type grinder set up operator thread tool, to a more viable healthy nail plate [...] to maintain effectiveness in symptomatic relief - 22328 Keratoma Treatment Parring or Cutting o f [...] instrumentation by the physician of record - 94532 Progress Notes * Alicia DUONGDOB:1945 (79 yo F)Acc No.[id number]:01/21/2025 Progress Note Patient:?Alicia DUONG Provider:?Yarely Gibbs DPM :1945???Age:79 Y???Sex:Female D ate:01/21/2025 Address:[address] [place], [place] [id number] Pcp:Boaz Astorga MD Subjective: * Chief Complaints: [...] pressure - water pill stayed 2 days 03/07/2021[facility]- blood pressure- 2 days - changed water pills 04/11[facility]- High BP -3 days * Family History:?Mother: [...] Externally as needed Twice a day Nystatin 557452 UNIT/GM Cream 1 application Externally Twice a [...] as needed Twice a day Not-Taking/PRN Nystatin 106795 UNIT/GM Cream 1 application Externally Twice a day Not-Taking/PRN Ciclopirox Olamine 0.77 % Cream 1 application to affected area Externally to feet Twice a day Medication List reviewed and reconciled with the patient * Allergies:?AspirinAmoxicillinAdhesiveLisinoprilHydrochlorothiazideCortisoneAmlod ipineIsosorbide DinitrateRanitidine 75NexiumCaffeineTopamaxDexilantSertralineDiclofenacEscitalopram OxalateMirtazapineNystatinWater Pills: Low blood pressure - Side EffectsBactrim: kidney issuesyes[Allergies Verified] Objective: * Vitals:?Ht: 5 ft, Wt: 143, B MN: 27.92, Shoe size: 8W, BP: 120/77 mm [...] of a nail nipper and/or dremel-type grinder set up operator thread tool, to a more viable healthy nail plate [...] to maintain effectiveness in symptomatic relief - 63937.?Keratoma Treatment:?Parring or Cutting of Benign Hyperkeratotic Lesion(s)?(-57) [...] instrumentation by the physician of record - 42261.? * Procedure Codes:?91627 DEBRI DE NAIL, 6 OR MORE, Modifiers: XS 11187 TRIM SKIN LESIONS, OVER 4, Modifiers: XS [...] GrangerM Date:?11/2024 Generated for Mary Ann baca/Suzy/Jonathonitting on:?02/11/2025 09:34 AM EDT History and Physical Notes * [...]
--- OUTSIDE RECORDS SUMMARY | 2025-02-11 09:34 | XMS_ITS ---
Author Organization [facility] rubina [place] Address [address] [place] [address] Care Team Providers Care Dredge Pump Operator Name Role Phone Martell Astorga MDneth Primary Care Provider Yarely Medina Unavailable [phone] REASON FOR VISIT sooner appt Encounters Encounter Location Date Provider Diagnosis [address] [address] 01/21/2025 Yarely Gibbs Plan Of Treatment Next Appt Details Provider Name:Yarely puckett, 04/14/2025 01:30:00 PM, [address] [place], [address], Progress Notes * Alicia DUONGDOB:1945 (79 yo F)Acc No.[id number]:01/21/2025 Patient:?Alicia DUONG :1945???Age:79 Y???Sex:Female Address:[address], [place], [address] * true * Date:? Generated for Printi ng/Farikg/eTransmitting on:?02/11/2025 09:34 AM EDT
[2025-02-11 09:47] LABS: Basophils Percent Auto 0.7 % (0-2); Eosinophils Absolute Auto 0.1 X10*3/uL (0.0-0.4); Eosinophils Percent Auto 1.2 % (0-4); Hematocrit 37.1 % (37.0-47.0); Hemoglobin 12.2 g/dl (12.0-16.0); Imm Gran Abs Auto 0.02 X10*3/uL (0.00-0.03); Imm Gran Pct Auto 0.3 % (0.0-0.4); Lymphocytes Absolute Auto 1.2 X10*3/uL (1.2-4.9); Lymphocytes Percent Auto 20.2 % (20-40); Mean Corpuscular HGB Conc 32.9 g/dl (31.0-35.0); Mean Corpuscular Volume 94.2 fL (80.0-98.0); Mean Platelet Volume 11.8 fL (9.4-12.3); Monocytes Absolute Auto 0.6 X10*3/uL (0.1-1.2); Monocytes Percent Auto 10.7 % (2-11); Neutrophils Absolute Auto 3.9 x10*3/uL (2.0-8.3); Neutrophils Percent Auto 66.9 % (45-73); Platelet Count 229 X10*3/uL (160-400); Red Blood Count 3.94 X10*6/uL (4.20-5.50); Red Cell Distribution Width 13.2 % (11.0-16.0); White Blood Count 5.8 X10*3/uL (4.8-10.8)
[2025-02-11 09:56] LABS: Appearance Urine Clear; Color Urine Yellow; Glucose Urine UA 250 mg/dL (Negative); Leukocyte Esterase Urine Negative (Negative); Nitrite Urine Negative (Negative); PH 6.5 (5.0-9.0); Urine Blood Negative (Negative); Urine Ketones Negative (Negative); Urine Protein Trace mg/dL (Neg-Trace)
[2025-02-11 10:37] LABS: Alanine Aminotransferase 17 U/L (0-31); Albumin Level 4.5 g/dL (3.5-5.0); Alkaline Phosphatase 130 U/L (39-117); Anion Gap 12 (12-20); Aspartate Amino Transferase 27 U/L (5-31); Bilirubin Total 0.9 mg/dL (0.0-1.0); Blood Urea Nitrogen 44 mg/dL (9-16); Calcium 9.9 mg/dL (8.4-10.2); Carbon Dioxide 23 mmol/L (22-29); Chloride 106 mmol/L (96-108); Cholesterol 135 mg/dL (<200); Estimated Glomerular Filt Rate 18; Glucose Fasting 100 mg/dL (60-99); HDL Cholesterol 54 mg/dL (>40); LDL Cholesterol Calculated 70 mg/dL (<100); Potassium 4.4 mmol/L (3.3-5.1); Sodium 137 mmol/L (135-145); Triglycerides 56 mg/dL (<150)
[2025-02-11 10:49] LABS: Creatinine Urine 32.21 mg/dL; Microalbum/Creatinine Ratio Ur 52.7 ug/mg cr (<30)
[2025-02-11 10:54] LABS: TSH reflex Free T4 2.84 uIU/mL (0.32-4.0); Vitamin D 25-OH Total 42.6 ng/mL (>30)
[2025-02-11 11:01] LABS: Folate 13.1 ng/mL (> or = 4.0); Vitamin B12 949 pg/mL (200-900)
[2025-02-11 11:05] LABS: Estimated Average Glucose 189 mg/dL; Hemoglobin A1C 211.6636 umol/L; Hemoglobin A1c % 8.2 % (<6.0); Total Hemoglobin (HGBA1C) 3210.0834 umol/L
== END 2025-02-11 08:55 | disposition home or self-care (01) ==
LOC: HO.LAB 08:54
PROVIDERS: PCP Internal Medicine; Visit Provider Internal Medicine
DX: E78.00 Pure hypercholesterolemia, unspecified (principal); D64.9 Anemia, unspecified; E11.9 Type 2 diabetes mellitus without complications; R30.0 Dysuria; E53.8 Deficiency of other specified B group vitamins; E55.9 Vitamin D deficiency, unspecified
CPT/HCPCS: 36415; 80053; 80061; 81003; 82043; 82306; 82570; 82607; 82746; 83036; 84443; 85025

== ENCOUNTER 2025-02-18 12:47 | Outpatient (AMB) | payer OTHER, SELFPAY ==
[2025-02-18 12:49] VITALS: BP 132/74; PULSE 69; O2SAT 99; BMI 26.8
--- NOTE | 2025-02-18 12:49 | A.OFFPC_ITS ---
Vital Signs 02/18/25 12:49 Height 5 ft Weight 137 lb 6 oz BMI 26.8 BP 132/74 Blood Pressure Location Lt brachial Position Sitting Pulse 69 Pulse Source Pulse Oximeter Pulse Oximetry (%) 99 Oxygen Delivery Method Room Air Intake Visit Reasons: DM, CKD stage 4, hyperlipidemia, HTN Egg Processor Required: No Accompanied by: Self / Same As Patient Allergies aspirin [Aspirin] Allergy (Severe, Verified 02/18/25 13:11) MOUTH SWELLING hydrochlorothiazide [Hydrochlorothiazide] Allergy (Intermediate, Verified 02/18/25 13:11) DROP IN BLOOD PRESSURE Penicillins [PENICILLINS] Allergy (Intermediate, Verified 02/18/25 13:11) ITCHING caffeine [Caffeine] Allergy (Mild, Verified 02/18/25 13:11) NERVOUSNESS lisinopril [Lisinopril] Allergy (Mild, Verified 02/18/25 13:11) CHANGES IN BLOOD PRESSURE ranitidine [RANITIDINE] Allergy (Mild, Verified 02/18/25 13:11) HEADACHE amlodipine [AMLODIPINE] Allergy (Unknown, Verified 02/18/25 13:11) UNKNOWN amoxicillin Allergy (Unknown, Verified 02/18/25 13:11) itching, severe with rash diclofenac Allergy (Unknown, Verified 02/18/25 13:11) Unknown escitalopram Allergy (Unknown, Verified 02/18/25 13:11) abdominal discomfort, drowsiness esomeprazole [Nexium] Allergy (Unknown, Verified 02/18/25 13:11) Unknown isosorbide [ISOSORBIDE] Allergy (Unknown, Verified 02/18/25 13:11) UNKNOWN lidocaine [Lidoderm] Allergy (Unknown, Verified 02/18/25 13:11) weakness mirtazapine Allergy (Unknown, Verified 02/18/25 13:11) Unknown nystatin Allergy (Unknown, Verified 02/18/25 13:11) rash sertraline [SERTRALINE] Allergy (Unknown, Verified 02/18/25 13:11) UNKNOWN dexlansoprazole [From DEXILANT] Adverse Reaction (Severe, Verified 02/18/25 13:11) AGITATION hydrocortisone [From Cortizone-10] Adverse Reaction (Mild, Verified 02/18/25 13:11) RAISES BLOOD SUGAR topiramate [From TOPAMAX] Adverse Reaction (Unknown, Verified 02/18/25 13:11) AGITATION trajenta Allergy (Severe, Uncoded 02/18/25 13:11) numbness From PLAVIX Allergy (Unknown, Uncoded 02/18/25 13:11) PT UNSURE OF REACTION Medical tape Allergy (Unknown, Uncoded 02/18/25 13:11) Rash Medication List - Last Reconciled 02/18/25 by Boaz Astorga MD acarbose 25 mg PO DAILY 30 days acetaminophen (Tylenol Extra Strength) 500 mg PO .TWICE A DAY PRN alprazolam 0.5 mg PO BID PRN blood sugar diagnostic (EnStorage Ultra Test strips) USE DIRECTED TO TEST BLOOD SUGAR FOUR TIMES DAILY buspirone 7.5 mg PO DAILY carvedilol 6.25 mg PO BID 90 days ciclopirox 0.77% 1 applic topical BID clotrimazole-betamethasone 1-0.05 % 1 appl topical BID PRN compr.stocking,knee,long,large As directed Dex4 Glucose (glucose) 16 grams (4 x 4 gram) PO Q15M PRN 30 days MDD 16 tablets NS [gloves As directed] [incontinent liners As directed] lancets (EponymTouch Delica Plus Lancet) USE FOUR TIMES DAILY Lantus Solostar U-100 Insulin (insulin glargine) 6 units (0.06 mL) subcut BID 30 days NS linagliptin (Tradjenta) 5 mg PO DAILY 30 days methylcellulose (laxative) (Citrucel) 500 mg PO DAILY multivit with min-folic acid 200 mcg (Adult Multivitamin Gummies) 1 tab PO DAILY pantoprazole 20 mg PO DAILY pen needle, diabetic bid NS propylene glycol 0.6% (Systane Balance) 1 drp ophthalmic (eye) BID PRN rosuvastatin 40 mg PO DAILY 90 days sennosides 17.2 mg (2 x 8.6 mg) PO DAILY spironolactone (Aldactone) 25 mg PO BEDTIME 90 days Tobacco use date assessed: 02/18/25 Fall risk assessment: No Falls in past year Last assessed Fall Risk: 02/18/25 Dental Screening Dental Screen Date: 02/18/25 Did you have a dental visit in the last 12 months?: Yes Did you have a dental problem in the last 6 months where you did not have access to dental care?: No Was dental information given to patient?: Patient has dentist HPI DM, CKD stage 4, hyperlipidemia, HTN HPI Details Patient comes in today for her follow up visit States that she still feels fatigued often and that her blood sugar is still not well-controlled She was started on Latntus 6 units Q HS by endocrinology recently and was advised yesterday to increase her dose now to 6 units BID She denies any headaches or dizziness Denies any chest pains, no increased SOB No nausea/vomiting, no abdominal pain No change in bowel habits noted Needs her glucometer test strips and lancets Rx refilled She had her follow up labs done last week - to discuss her results [facility] Medical History Left bundle branch block Type 2 diabetes mellitus with chronic kidney disease Chronic kidney disease, stage 4 (severe) Type 2 diabetes mellitus Obesity Skin abrasion HARRIET (renal artery stenosis) Nonischemic cardiomyopathy Urinary incontinence GERD (gastroesophageal reflux disease) COVID-19 Pneumonia due to COVID-19 virus Vertigo Obesity (BMI 30-39.9) Depression Anxiety Stasis edema of both lower extremities Cardiomyopathy Pure hypercholesterolemia Hyperkalemia Renal artery stenosis Benign essential hypertension Conjunctival hemorrhage of right eye Surgical History Hx of colonoscopy Hx of myomectomy History of cataract surgery History of lumpectomy of left breast History of cholecystectomy Family History Father CVD (cardiovascular disease) Myocardial infarction Mother Myocardial infarction CVD (cardiovascular disease) Brother Myocardial infarction Family/Other FH: prostate cancer Social History Household Members: None Housing: Apartment Do you presently have visiting nurse or other home services: No Alcohol intake: never Patient Tobacco Use Status: Former Tobacco user Tobacco use type: Cigarette e-Cigarette/Vaping Use: Never Used Second Hand Smoke Exposure: No Advance Directives Date on File: 08/06/21 service: No Current occupational status: disabled Cognitive needs: No Hearing needs: No Vision needs: Yes Questionnaire PHQ-9 Over the last 2 weeks, how often have you been bothered by any of the following problems? 1. Little interest or pleasure in doing things: not at all 2. Feeling down, depressed, or hopeless: several days 3. Trouble falling or staying asleep, or sleeping too much: several days 4. Feeling tired or having little energy: more than half the days 5. Poor appetite or overeating: more than half the days 6. Feeling bad about yourself - or that you are a failure or have let yourself or your family down: not at all 7. Trouble concentrating on things, such as reading the newspaper or watching television: not at all 8. Moving or speaking so slowly that other people could have noticed. Or the opposite - being so fidgety or restless that you have been moving around a lot more than usual: not at all 9. Thoughts that you would be better off or of hurting yourself in some way: not at all Total score: 6 Depression Screening Interpretation: Positive Depression Screening Follow-up: Existing condition and In treatment Depression Screening Done: Yes 26933 - PHQ-9 Billing: Yes Source: Developed by Drs. Kayden Gonzalez, Alka Silver, Harjit Rush and colleagues, with an educational vlad from [employer]. Thrive Questionnaire Date Thrive assessed: 02/18/25 I am a: Patient What is your living situation today?: I have a steady place to live Within the past 12 months, did the food you bought not last and you didn't have the money to get more?: Never true Within the past 12 months, did you worry whether your food would run out before you got money to buy more?: Never true Do you have trouble paying for medicines?: No Do you have trouble getting transportation to medical appointments?: Yes Do you have trouble paying your heating and electricity bill?: No Do you have trouble taking care of your child, family member or friend?: No Do you have trouble with day-to-day activities such as bathing, preparing meals, shopping, managing finances, etc.?: No Are you currently unemployed and looking for a job?: Yes Are you interested in more education?: No Please select the resources that you would like help with: None Currently or been in a relationship where the following occur: No concerns reported THRIVE Score: 1 AUDIT C Alcohol Use Questionnaire (AUDIT-C) 1. How often do you have a drink containing alcohol?: Never 3. How often do you have six or more drinks on one occasion?: Never Total Score: 0 Score Reviewed/Action Taken: Yes VIKRAM-7 AMB Questionnaire VIKRAM-7 Date VIKRAM - 7 assessed: 02/18/25 Feeling nervous, anxious, or on edge: 1 = Several days Not being able to stop or control worryin = Several days Worrying too much about different things: 1 = Several days Trouble relaxin = Several days Being so restless that it is hard to sit still: 1 = Several days Becoming easily annoyed or irritable: 1 = Several days Feeling afraid as if something awful might happen: 1 = Several days Total VIKRAM-7 score (0-4 normal; 5-9 mild; 10-14 moderate; 15-21 severe): 7 Source: Developed by Drs. Kayden Gonzalez, Alak Silver, Harjit Rush and colleagues, with an educational vlad from [employer]. Review of Systems Const Denies chills, Reports fatigue, Denies fever(s) and Denies headache(s) ENT Denies dysphagia, Denies dizziness, Denies otalgia, Denies headache(s), Denies neck pain, Denies odynophagia and Denies sore throat Card Denies chest pain, Denies palpitations and Denies dyspnea Resp Denies chest congestion, Denies cough and Denies dyspnea GI Denies abdominal pain, Denies constipation, Denies dysphagia, Denies heartburn, Denies diarrhea, Denies nausea, Denies odynophagia and Denies vomiting Denies difficulty voiding, Denies nocturia, Denies dysuria, Reports urinary incontinence and Denies urinary urgency Musc Denies back pain and Denies neck pain Skin/Breast Denies rash Neuro Denies dizziness and Denies headache(s) Psych Reports anxiety Endo Reports fatigue and Denies palpitations Physical exam (Primary Care) Vital Signs: Last Vital Signs Pulse 69 02/18/25 12:49 BP 132/74 02/18/25 12:49 Pulse Ox 99 02/18/25 12:49 Oxygen Delivery Method Room Air 02/18/25 12:49 BMI result Body Mass Index 26.8 Tobacco/Smoking Status: Tobacco use Status Tobacco use date assessed 02/18/25 02/18/25 12:53 Patient Tobacco Use Status Former Tobacco user 04/30/25 12:53 Tobacco use type Cigarette 02/18/25 12:53 e-Cigarette/Vaping Use Never Used 02/18/25 12:53 PHQ-9: PHQ-9 Score PHQ-9: Total score 6 02/18/25 12:55 Depression Screening Interpretation: Positive Depression Screening Follow-up: Existing condition and In treatment Thrive Assessment: Date of Thrive Assessment Date Thrive assessed 02/18/25 02/18/25 12:53 Currently or been in a relationship where the following occur: No concerns reported Const General: no acute distress and alert HENMT Ears: TM's normal bilaterally and EAC's normal Throat: Yes posterior oropharynx normal and Yes tonsils normal (no TP congestion noted) Neck Neck: Yes supple and No lymphadenopathy Thyroid: Thyroid normal Resp Auscultation: clear to auscultation bilaterally, no rales and no wheezes Cardio Rate: regular rate Rhythm: regular rhythm Heart sounds: no murmurs GI Palpation (GI): Soft to palpation and nontender Auscultation: normal bowel sounds General: Yes no CVA tenderness Back/Spine/Pelvis Back: no CVA tenderness Thoracic/Lumbar Spine: No lumbar spinal tenderness Skin Rashes: no rashes Extrem General: Yes no clubbing, cyanosis or edema Results Reviewed Results Reviewed: Laboratory Tests 02/11/25 02/11/25 05:14 09:11 WBC 5.8 Hgb 12.2 Hct 37.1 Plt Count 229 D Sodium 137 Potassium 4.4 Creatinine 2.55 H Estimated GFR 18 Fasting Glucose 100 H Hemoglobin A1c % 8.2 H Calcium 9.9 AST 27 ALT 17 Triglycerides 56 Cholesterol 135 LDL Cholesterol, Calc 70 HDL Cholesterol 54 Vitamin B12 949 H 25-OH Vitamin D Total 42.6 TSH 2.84 Ur Specific [place] 1.010 Urine Protein Trace Urine Glucose (UA) 250 H Urine Blood Negative Urine Nitrite Negative Ur Leukocyte Esterase Negative Microalb/Creat Ratio 52.7 H Coding Level of Care Code Est Pt Level 4 (93258) Complex EM visit Add On G2211 Diagnoses Benign essential hypertension I10 Cardiomyopathy, unspecified type I42.9 Cardiomyopathy type: unspecified Renal artery stenosis I70.1 Chronic kidney disease, stage 4 (severe) N18.4 Type 2 diabetes mellitus with stage 4 chronic kidney disease, without long-term current use of insulin E11.22; N18.4 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 retirement insulin use: without retirement use Chronic kidney disease stage: stage 4 (severe) Pure hypercholesterolemia E78.00 Elevated TSH R79.89 Gastroesophageal reflux disease, unspecified whether esophagitis present K21.9 Esophagitis presence: esophagitis presence not specified Anxiety F41.9 Depression, unspecified depression type F32.9 Depression Type: unspecified Obesity (BMI 30-39.9) E66.9 Additional Codes PHQ-9 - 37740 - PHQ-9 Billing: Yes ([id number]) Assessment & Plan Assessment & Plan (1) Benign essential hypertension: Code(s): I10 - Essential (primary) hypertension Category: Medical Plan: Reinforced low sodium diet - goal is systolic BP of at least 130 to 140 mm or less Continue Carvedilol 6.25 mg BID and Spironolactone 25 mg Q HS Her Losartan was discontinued previously and she has been advised NOT to start back on this due to her advanced CKD Follow up with cardiology as scheduled (2) Cardiomyopathy: Code(s): I42.9 - Cardiomyopathy, unspecified Category: Medical Qualifiers: Cardiomyopathy type: unspecified Qualified Code(s): I42.9 - Cardiomyopathy, unspecified Plan: Continue Carvedilol 6.25 mg BID Patient had a stress test and nuclear MIBI done [place] [facility] a couple of years ago - both tests came back normal BNP also came back normal when previously checked Follow up with cardiology as scheduled (3) Renal artery stenosis: Code(s): I70.1 - Atherosclerosis of renal artery Category: Medical Plan: She has left HARRIET (seen on renal artery doppler) and will be considered for renal angioplasty if necessary, although a more recent renal US done in May 2024 revealed no HARRIET Her BP appears to have improved a lot with the addition of Spironolactone Will continue to observe and monitor her blood pressure regularly for now Follow up with nephrology (Dr. Madrigal) as scheduled (4) Chronic kidney disease, stage 4 (severe): Code(s): N18.4 - Chronic kidney disease, stage 4 (severe) Category: Medical Plan: Patient's serum creatinine and GFR/renal function again appear mostly stable on her recent labs - will continue to monitor her GFR and serum creatinine closely Follow up with nephrology (Dr. Madrigal) as scheduled - nephrology has recommended adding an SGLT-2 inhibitor when appropriate; Metformin has since been discontinued Patient used to see [facility] but has now been switched over to [facility] for management of her diabetes for better continuity of care as we were having a hard time getting her reports from [facility] in a jaz rochelle manner before (5) Type 2 diabetes mellitus with chronic kidney disease: Code(s): E11.22 - Type 2 diabetes mellitus with diabetic chronic kidney disease Category: Medical Qualifiers: 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 retirement insulin use: without keno terminal operator use Chronic kidney disease stage: stage 4 (severe) Qualified Code(s): E11.22 - Type 2 diabetes mellitus with diabetic chronic kidney disease; N18.4 - Chronic kidney disease, stage 4 (severe) Plan: Her HgbA1c was at 8.2% on her labs done last week (was previously at 7.9% a few months ago) - goal is at least <7.5% Reinforced diabetic diet Her Metformin ER 500 mg QD has been discontinued due to her advanced CKD; Glimepiride 1 mg Q AM and Januvia were also previously stopped due to hypoglycemia She was also taken off Ozempic as she was reportedly losing too much weight while on the medication Nephrology recommended adding an SGLT-2 inhibitor and will consider starting patient on this at her next follow up visit if appropriate Continue Tradjenta 5 mg QD and Acarbose 25 mg QD She was started additionally on Lantus 6 units Q HS by endocrinology recently and was just advised to increase it to 6 units BID yesterday Follow up with [facility] as scheduled (6) Pure hypercholesterolemia: Code(s): E78.00 - Pure hypercholesterolemia, unspecified Category: Medical Plan: Results of her labs done last week reviewed and discussed with patient Reinforced low cholesterol diet Continue Rosuvastatin 40 mg QD Will recheck her labs and fasting lipids in 3 months for follow up (7) Elevated TSH: Code(s): R79.89 - Other specified abnormal findings of blood chemistry Category: Medical Plan: Her TSH remains normal on her recent labs Her free T4 and T3 levels were normal and TPO Ab level was high when previously checked, suggesting possible Pb's Patient currently appears clinically euthyroid Will continue to monitor her TFTs regularly (8) GERD (gastroesophageal reflux disease): Code(s): K21.9 - Gastro-esophageal reflux disease without esophagitis Category: Medical Qualifiers: Esophagitis presence: esophagitis presence not specified Qualified Code(s): K21.9 - Gastro-esophageal reflux disease without esophagitis Plan: Dietary restrictions reinforced Continue Pantoprazole 20 mg QD - dose was lowered by GI recently Follow up with GI as scheduled (9) Anxiety: Code(s): F41.9 - Anxiety disorder, unspecified Category: Medical Plan: Continue Buspirone 7.5 mg QD and Alprazolam 0.5 mg BID PRN Follow up with psychiatry as scheduled (10) Depression: Code(s): F32.9 - Major depressive disorder, single episode, unspecified Category: Medical Qualifiers: Depression Type: unspecified Qualified Code(s): F32.9 - Major depressive disorder, single episode, unspecified Plan: Follow up with psychiatry as scheduled - patient goes to [facility] (11) Obesity (BMI 30-39.9): Code(s): E66.9 - Obesity, unspecified Category: Medical Plan: Reinforced diet; exercise and weight loss are unrealistic given patient's multiple comorbidities and limited activity tolerance as well as her gait instability Plan Follow up in 3 months Orders: Orders Comprehensive [place]. Panel Fast 3 Months E78.00 - Pure hypercholesterolemia, unspecified Lipid Panel 3 Months E78.00 - Pure hypercholesterolemia, unspecified Microalbumin, Random (w Creat) 3 Months E11.9 - Type 2 diabetes mellitus without complications Hemoglobin A1c 3 Months E11.9 - Type 2 diabetes mellitus without complications TSH reflex Free T4 3 Months E78.00 - Pure hypercholesterolemia, unspecified Complete Blood Count Auto Diff 3 Months D64.9 - Anemia, unspecified UA CC w/rflx Micro + Cult 3 Months R30.0 - Dysuria Vitamin D 25-OH Total 3 Months E55.9 - Vitamin D deficiency, unspecified Vitamin B12 and Folate 3 Months E53.8 - Deficiency of other specified B group vitamins Medications: Refilled blood sugar diagnostic (EnStorage Ultra Test strips) USE DIRECTED TO TEST BLOOD SUGAR FOUR TIMES DAILY 100 strips 12RF E11.9 - Type 2 diabetes mellitus without complications lancets (OneTouch Delica Plus Lancet) USE FOUR TIMES DAILY 200 ea 12RF E11.9 - Type 2 diabetes mellitus without complications
--- OUTSIDE RECORDS SUMMARY | 2025-02-18 14:00 | XMS_ITS | Clinical Summary ---
Author Organization [facility] Address [address] [place] [address] Phone Care Team Providers Care Precision Grinder External Name Role Phone Boaz Astorga MD Primary Care Provider [phone] Allergies Active Allergy Reactions Criticality Noted Date [...] patient's age to complete this topic Insurance [employer] [facility] ([id number]) [employer] [facility] ([id number]) Care Teams Precision Grinder External Relationship Specialty Start Date End Date Boaz Astorga MD [address] [place] [address] PCP - General 11/01/20
--- OUTSIDE RECORDS SUMMARY | 2025-02-18 14:01 | XMS_ITS | Patient Health Record ---
[facility] [place] Address [address] [place] [address] Care Team Providers Care Oracle Database Analyst Name Role Phone Rizwan SORENSON, Boaz Primary Care Provider Yarely Medina Unavailable [phone] Allergies Allergen (clinical drug ingredient) Drug/Non Drug [...] Boaz Referring Provider Last Name Rizwan Referred [facility] Referred Provider Yarely Gibbs Referred Address [address],[place], [place],[address],[place] Referred Provider Specialty Podiatry Referral Priority Routine [...] Once a day Not-Taking Multivitamin Active Nystatin 801755 UNIT/GM 1 application Externally Twice a day [...] Problem Acquired hammer toe of right foot ([id number] 05) Other hammer toe(s) (acquired), right foot (M20.41) Active confirmed Problem Type 2 diabetes mellitus with peripheral angiopathy (890009123) Type 2 diabetes mellitus with diabetic peripheral angiopathy without gangrene (E11.51) Active confirmed Problem Acquired hammer toe of left foot ([id number] 03) Other hammer toe(s) (acquired), left foot (M20.42) Active confirmed Vital Signs Blood pressure diastolic 77 mm Hg 01/21/2025 Height 5 ft in 01/21/2025 Blood pressure systolic 120 mm Hg 01/21/2025 Weight 143 lbs 01/21/2025 BMI 27.92 kg/m2 01/21/2025 Encounters Encounter Location Date Provider Diagnosis [address] [address] 02/26/2024 Yarely Perica Tinea pedis of both feet B35.3 ; Type 2 diabetes mellitus with diabetic peripheral angiopathy without gangrene E11.51 ; Tinea unguium B35.1 ; Pain in left toe(s) M79.675 and Pain in right toe(s) M79.[address] [address] 07/09/2024 Yarely Perica Tinea pedis of both feet B35.3 ; Type 2 diabetes mellitus with diabetic peripheral angiopathy without gangrene E11.51 ; Tinea unguium B35.1 ; Pain in left toe(s) M79.675 and Pain in right toe(s) M79.[address] [address] 09/17/2024 Yarely Perica Tinea pedis of both feet B35.3 ; Type 2 diabetes mellitus with diabetic peripheral angiopathy without gangrene E11.51 ; Tinea unguium B35.1 ; Pain in left toe(s) M79.675 ; Pain in right toe(s) M79.674 and Xerosis cutis L85.[address] [address] 01/21/2025 Yarely Perica Tinea pedis of both feet B35.3 ; Other hammer toe(s) (acquired), right foot M20.41 ; Type 2 diabetes mellitus with diabetic peripheral angiopathy without gangrene E11.51 ; Tinea unguium B35.1 ; Pain in left toe(s) M79.675 ; Pain in right toe(s) M79.674 ; Xerosis cutis L85.3 and Other hammer toe(s) (acquired), left foot M20.42 [facility] [address] [address] 05/26/2024 Yarely Perica [facility] [address] [address] 05/27/2024 Yarely Perica [facility] [address] [address] 07/02/2024 Yarely Perica [facility] [address] [address] 12/02/2024 Yarely Perica [facility] [address] [address] 01/21/2025 Yarely Gibbs Assessments Encounter Date Diagnosis [...] Details Provider Name:Yarely puckett, 04/14/2025 01:30:00 PM, [address] [place] [address], [id number], Insurance Providers Payer Name Payer Address Payer Phone Subscriber Number Group Number Insured Name Patient Relationship to Insured Coverage Start Date Coverage End Date [facility] [address] [place] [phone] [id number] Alicia Noel Self - patient is the [...] days - changed wa ter pills 04/11 [facility]- low blood pressure - water pill sta yed 2 days 03/07/2021
--- OUTSIDE RECORDS SUMMARY | 2025-02-18 14:01 | XMS_ITS ---
Author Organization [facility] [place]ina [place] Address [address] [place] [address] Care Team Providers Care Able Bodied Tankerman Name Role Phone Boaz Astorga MD Primary Care Provider Yarely Medina Unavailable [phone] Allergies Allergen (clinical drug ingredient) Drug/Non Drug [...] day for 30 days Not-Erick ng Nystatin 163160 UNIT/GM 1 application Externally Twice a day [...] Problem Acquired hammer toe of right foot (4014215978637 105) Other hammer toe(s) (acquired), right foot (M20.41) Active confirmed Problem Acquired hammer toe of left foot (4213966702892 103) Other hammer toe(s) (acquired), left foot (M20.42) Active confirmed Vital Signs Height 5 ft in 01/21/2025 Weight 143 lbs 01/21/2025 BMI 27.92 kg/m2 01/21/2025 Blood pressure systolic 120 mm Hg 01/22/20 25 Blood pressure diastolic 77 mm Hg 025 Encounters Encounter Location Date Provider Diagnosis [facility] [address] [address] 01/21/2025 Yarely Gibbs Tinea pedis of both [...] Reason: Provider Name:Yarely puckett, 04/14/2025 01:30:00 PM, [address] [place] [address], [phone], Procedure Notes * Category Sub-Category Detail [...] use of a nail nipper and/or dremel-type sausage grinder, to a more viable healthy nail [...] to maintain effectiveness in symptomatic relief - 30129 Keratoma Treatment Parring or Cutting o f [...] instrumentation by the physician of record - 32139 Progress Notes * Alicia DUONGDOB:1945 (79 yo F)Acc No.[id number]:01/21/2025 Progress Note Patient:?Alicia DUONG Provider:?Yarely Gibbs DPM :1945???Age:79 Y???Sex:Female D ate:01/21/2025 Address:[address] [place], [place] [id number] Pcp:Boaz Astorga MD Subjective: * Chief Complaints: [...] pressure - water pill stayed 2 days 03/07/2021[facility] [place] blood pressure- 2 days - changed water pills 04/11[facility]- High BP -3 days * Family History:?Mother: [...] Externally as needed Twice a day Nystatin 935394 UNIT/GM Cream 1 application Externally Twice a [...] as needed Twice a day Not-Taking/PRN Nystatin 212890 UNIT/GM Cream 1 application Externally Twice a day Not-Taking/PRN Ciclopirox Olamine 0.77 % Cream 1 application to affected area Externally to feet Twice a day Medication List reviewed and reconciled with the patient * Allergies:?AspirinAmoxicillinAdhesiveLisinoprilHydrochlorothiazideCortisoneAmlod ipineIsosorbide DinitrateRanitidine 75NexiumCaffeineTopamaxDexilantSertralineDiclofenacEscitalopram OxalateMirtazapineNystatinWater Pills: Low blood pressure - Side EffectsBactrim: kidney issuesyes[Allergies Verified] Objective: * Vitals:?Ht: 5 ft, Wt: 143, B IA: 27.92, Shoe size: 8W, BP: 120/77 mm [...] use of a nail nipper and/or dremel-type sausage grinder, to a more viable healthy nail [...] to maintain effectiveness in symptomatic relief - 24054.?Keratoma Treatment:?Parring or Cutting of Benign Hyperkeratotic Lesion(s)?(-57) [...] instrumentation by the physician of record - 85615.? * Procedure Codes:?20943 DEBRI DE NAIL, 6 OR MORE, Modifiers: XS 99790 TRIM SKIN LESIONS, OVER 4, Modifiers: XS [...] GrangerM Date:?11/2024 Generated for Mary Ann baca/Suzy/Jonathonitting on:?02/18/2025 02:01 PM EDT History and Physical Notes * [...]
--- OUTSIDE RECORDS SUMMARY | 2025-02-18 14:01 | XMS_ITS ---
Author Organization [facility] Address [address] [place] [address] Care Team Providers Care Reservations Specialist Name Role Phone Martell Astorga MDneth Primary Care Provider Yarely Medina Unavailable [phone] REASON FOR VISIT sooner appt Encounters Encounter Location Date Provider Diagnosis [address] [address] 01/21/2025 Yarely Gibbs Plan Of Treatment Next Appt Details Provider Name:Yarely puckett, 04/14/2025 01:30:00 PM, [address] [place], [address], Progress Notes * Alicia DUONGDOB:1945 (79 yo F)Acc No.[id number]:01/21/2025 Patient:?Alicia DUONG :1945???Age:79 Y???Sex:Female Address:[address], [place], [address] * true * Date:? Generated for Printi ng/Farikg/eTransmitting on:?02/18/2025 02:01 PM EDT
--- OUTSIDE RECORDS SUMMARY | 2025-02-18 14:01 | XMS_ITS ---
Author Organization [facility] Address [address] [place] [address] Care Team Providers Care Regional Project Manager Name Role Phone Boaz Astorga MD Primary Care Provider UnaYarely White Unavailable [phone] Encounters Encounter Location Date Provider Diagnosis [address] [address] 02/18/2025 Yarely Gibbs Plan Of Treatment Next Appt Details Provider Name:Yarely puckett, 04/14/2025 01:30:00 PM, [address] [place] [address], [address], Progress Notes * Alicia DUONGDOB:1945 (79 yo F)Acc No.[id number]:02/18/2025 Progress Note Patient:?Alicia DUONG Provider:?Yarely Gibbs DPM :1945???Age:79 Y???Sex:Female D ate:02/18/2025 Address:[address] [place] [address] Pcp:Boaz Astorga MD Subjective: * Chief Complaints: * ??? * Medical History:? Objective: * Vitals:? Assessment: Plan: * Treatment: * Images: * The named appointment provid er may or may not be the originator of this progress note, and it is not deemed complete until electronically signed by the appointment provider. Sign off status: Pending * Provider:?Yarely Gibbs DPM Date:? Generated for Mary Ann baca/Suzy/Ventura on:?02/18/2025 02:01 PM EDT
== END 2025-02-18 13:26 | disposition home or self-care (01) ==
LOC: HO.HMCH 12:48
PROVIDERS: PCP Internal Medicine; Visit Provider Internal Medicine
DX: I12.9 Hypertensive chronic kidney disease with stage 1 through stage 4 chronic kidney disease, or unspecified chronic kidney disease (principal); I42.9 Cardiomyopathy, unspecified; N18.4 Chronic kidney disease, stage 4 (severe); E11.22 Type 2 diabetes mellitus with diabetic chronic kidney disease; I70.1 Atherosclerosis of renal artery; E78.00 Pure hypercholesterolemia, unspecified; R79.89 Other specified abnormal findings of blood chemistry; K21.9 Gastro-esophageal reflux disease without esophagitis; F41.9 Anxiety disorder, unspecified; F32.9 Major depressive disorder, single episode, unspecified; E66.9 Obesity, unspecified

== ENCOUNTER → 2025-02-18 12:47 | Outpatient (BNVA) | payer OTHER, SELFPAY | PROVIDERS: PCP Internal Medicine; Visit Provider Internal Medicine | DX: E11.22 Type 2 diabetes mellitus with diabetic chronic kidney disease (principal); I12.9 Hypertensive chronic kidney disease with stage 1 through stage 4 chronic kidney disease, or unspecified chronic kidney disease; N18.4 Chronic kidney disease, stage 4 (severe); E78.5 Hyperlipidemia, unspecified; I42.9 Cardiomyopathy, unspecified; I70.1 Atherosclerosis of renal artery; E78.00 Pure hypercholesterolemia, unspecified; R79.89 Other specified abnormal findings of blood chemistry; K21.9 Gastro-esophageal reflux disease without esophagitis; F41.9 Anxiety disorder, unspecified; F32.9 Major depressive disorder, single episode, unspecified; E66.9 Obesity, unspecified; Z68.26 Body mass index [BMI] 26.0-26.9, adult; Z79.4 Long term (current) use of insulin | CPT/HCPCS: 96127; 99212 ==

== ENCOUNTER 2025-02-19 12:40 | Outpatient (AMB) | payer OTHER, SELFPAY ==
--- NOTE | 2025-02-18 20:56 | A.OFFVIS_ITS ---
Vital Signs 02/19/25 12:48 Height 5 ft Weight 134 lb 7.712 oz BMI 26.3 BP 120/78 Blood Pressure Location Rt brachial Position Sitting Pulse 66 Pulse Source Pulse Oximeter Pulse Oximetry (%) 96 Oxygen Delivery Method Room Air Intake Visit Reasons: T2DM Intake Note: Patient presents today for a follow-up on Type 2 Diabetes Mellitus. Last Diabetic eye exam was on: 01/2024, patient has an appointment comining soon. Last Podiatry exam was on: 08/2024 Most recent HbA1c: 8.4%, 01/29/2025 Random Glucose- 230 mg/dL, Today Utilization Reviewer Required: No Accompanied by: unit nurse Allergies aspirin (Aspirin) Allergy (Severe, Verified 04/08/25 15:27) MOUTH SWELLING hydrochlorothiazide (Hydrochlorothiazide) Allergy (Intermediate, Verified 04/08/25 15:27) DROP IN BLOOD PRESSURE Penicillins (PENICILLINS) Allergy (Intermediate, Verified 04/08/25 15:27) ITCHING caffeine (Caffeine) Allergy (Mild, Verified 04/08/25 15:27) NERVOUSNESS lisinopril (Lisinopril) Allergy (Mild, Verified 04/08/25 15:27) CHANGES IN BLOOD PRESSURE ranitidine (RANITIDINE) Allergy (Mild, Verified 04/08/25 15:27) HEADACHE amlodipine (AMLODIPINE) Allergy (Unknown, Verified 04/08/25 15:27) UNKNOWN amoxicillin Allergy (Unknown, Verified 04/08/25 15:27) itching, severe with rash diclofenac Allergy (Unknown, Verified 04/08/25 15:27) Unknown escitalopram Allergy (Unknown, Verified 04/08/25 15:27) abdominal discomfort, drowsiness esomeprazole (Nexium) Allergy (Unknown, Verified 04/08/25 15:27) Unknown isosorbide (ISOSORBIDE) Allergy (Unknown, Verified 04/08/25 15:27) UNKNOWN lidocaine (Lidoderm) Allergy (Unknown, Verified 04/08/25 15:27) weakness mirtazapine Allergy (Unknown, Verified 04/08/25 15:27) Unknown nystatin Allergy (Unknown, Verified 04/08/25 15:27) rash sertraline (SERTRALINE) Allergy (Unknown, Verified 04/08/25 15:27) UNKNOWN dexlansoprazole (From DEXILANT) Adverse Reaction (Severe, Verified 04/08/25 15:27) AGITATION hydrocortisone (From Cortizone-10) Adverse Reaction (Mild, Verified 04/08/25 15:27) RAISES BLOOD SUGAR semaglutide (From Ozempic) Adverse Reaction (Mild, Verified 04/17/25 14:12) gerd topiramate (From TOPAMAX) Adverse Reaction (Unknown, Verified 04/08/25 15:27) AGITATION trajenta Allergy (Severe, Uncoded 02/19/25 12:49) numbness From PLAVIX Allergy (Unknown, Uncoded 02/19/25 12:49) PT UNSURE OF REACTION Medical tape Allergy (Unknown, Uncoded 02/19/25 12:49) Rash HPI Comments Details: [age] YO female who is seen in f/u for T2DM at the request of PCP. She was seen in consult 12/19/24 at which time Ozempic was stopped because she was experiencing GERD symptoms and felt she was losing too much weight. Since then the GERD is better and her weight loss has stabilized. Since that time she has been started on low-dose insulin. 8.4% 01/29/25. in the office. HgbA1c 11/05/24 7.9 %, 12/09/2019 7.5% Initially diagnosed with T2DM: had gestational diabetes developed in her 50's. Was initially started on treatment with:metformin januvia had weight gain Trulicity: not effective had side effect Gi symptoms, weakness Ozempic was stopped secondary to weight loss and gerd Current regimen:lantus 6 units am 2 units pm Checks glucose 1-2 times per day Most readings in the am are in good range higher later in the day Has eyes checked yearly, last eye exam 01/2024 denies retinopathy. Followed by Dr. Hanna Denies neuropathy, no numbness, tinging or pain, has occasional cramping in legs. last foot exam today, sees podiatry folllowed every 2-3 months was just seen last week Has nephropathy, not on mar-arb (allergy). 01/02/25 eGFR 20 She is followed by Dr. Madrigal Has HLD, on statin Last LDL 68 as measured on 10/3024 Has cardiomyopathy followed regularly by cardiology recent echo 12/2024 ejection fraction 40-45% stress test has been ordered by Cardiology Diet: balanced recently seen by [facility] Weight: Has lost weight No recent CDE, she declines as she has recently seen [facility] Medical History Left bundle branch block Type 2 diabetes mellitus with chronic kidney disease Chronic kidney disease, stage 4 (severe) Type 2 diabetes mellitus Obesity Skin abrasion HARRIET (renal artery stenosis) Nonischemic cardiomyopathy Urinary incontinence GERD (gastroesophageal reflux disease) COVID-19 Pneumonia due to COVID-19 virus Vertigo Obesity (BMI 30-39.9) Depression Anxiety Stasis edema of both lower extremities Cardiomyopathy Pure hypercholesterolemia Hyperkalemia Renal artery stenosis Benign essential hypertension Conjunctival hemorrhage of right eye Surgical History Hx of colonoscopy Hx of myomectomy History of cataract surgery History of lumpectomy of left breast History of cholecystectomy Family History Father CVD (cardiovascular disease) Myocardial infarction Mother Myocardial infarction CVD (cardiovascular disease) Brother Myocardial infarction Family/Other FH: prostate cancer Social History Household Members: None Housing: Apartment Do you presently have visiting nurse or other home services: No Alcohol intake: never Patient Tobacco Use Status: Former Tobacco user Tobacco use type: Cigarette e-Cigarette/Vaping Use: Never Used Second Hand Smoke Exposure: No Advance Directives Date on File: 08/06/21 service: No Current occupational status: disabled Cognitive needs: No Hearing needs: No Vision needs: Yes Physical Exam Vital Signs: Last Vital Signs Pulse 66 02/19/25 12:48 BP 120/78 02/19/25 12:48 Pulse Ox 96 02/19/25 12:48 Oxygen Delivery Method Room Air 02/19/25 12:48 BMI result Body Mass Index 26.3 Results Reviewed Results Reviewed: Laboratory Last Values Glucose (Clinic) 230 mg/dL (60-115) H 05/01/25 13:11 Assessment & Plan Assessment & Plan (1) Type 2 diabetes mellitus: Code(s): E11.9 - Type 2 diabetes mellitus without complications Category: Medical Qualifiers: 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 financial cost analyst insulin use: without intermediate use 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 complication status: with kidney complications 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 complication detail: with chronic kidney disease Chronic kidney disease stage: stage 4 (severe) Qualified Code(s): E11.22 - Type 2 diabetes mellitus with diabetic chronic kidney disease; N18.4 - Chronic kidney disease, stage 4 (severe) Plan: see below Plan 79-year-old type 2 diabetic with multiple drug intolerances. She was started on insulin several weeks ago She is running high during the daytime will adjust insulin: see below The patient had an opportunity to ask questions regarding treatment plan. The patient expressed understanding and agreement with the above treatment plan. The patient is aware they should contact our office by phone for worsening glucose readings or for any low blood sugars which may warrant a change in diabetes medication. Compliance is encouraged with medications and any followup testing/consults which may have been ordered. Medications: Changed From Lantus Solostar U-100 Insulin 6 units (0.06 mL) subcut BID 30 days 6 mL 6RF NS To Lantus Solostar U-100 Insulin (insulin glargine) lantus 8 units in the am 6 units before supper 6 mL 6RF 30 days NS Patient Instructions: Always carry a source of sugar Coding Level of Care Code Est Pt Level 3 (34174) Complex EM visit Add On G2211 Diagnoses Type 2 diabetes mellitus with stage 4 chronic kidney disease, without long-term current use of insulin E11.22; N18.4 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 intermediate insulin use: without financial cost analyst use 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 complication status: with kidney complications 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 complication detail: with chronic kidney disease Chronic kidney disease stage: stage 4 (severe) Time Spent (min) 20 Comment Time spent reviewing labs/provider notes, face to face, chart doc
[2025-02-19 12:48] VITALS: BP 120/78; PULSE 66; O2SAT 96; BMI 26.3
[2025-02-19 13:23] LABS: Glucose, Whole Blood 230 mg/dL (60-115)
--- OUTSIDE RECORDS SUMMARY | 2025-02-19 15:13 | XMS_ITS | Clinical Summary ---
Author Organization [facility] Address [address] [place] [address] Phone Care Team Providers Care Boat Puller Name Role Phone Boaz Astorga MD Primary Care Provider +1- [phone] Allergies Active Allergy Reactions Criticality Noted Date [...] patient's age to complete this topic Insurance [place] [employer] [facility] ([id number]) [place] [employer] [facility] ([id number]) Care Teams Boat Puller Relationship Specialty Start Date End Date Boaz Astorga MD [address] [place] [address] PCP - General 11/01/20
== END 2025-02-19 13:38 | disposition home or self-care (01) ==
LOC: HO.ENCR 12:40
PROVIDERS: PCP Internal Medicine; Visit Provider Nurse Practitioner Adult Health
DX: E11.22 Type 2 diabetes mellitus with diabetic chronic kidney disease (principal); N18.4 Chronic kidney disease, stage 4 (severe)
CPT/HCPCS: 99213; G2211

== ENCOUNTER → 2025-02-19 12:40 | Outpatient (BNVA) | payer OTHER, SELFPAY | PROVIDERS: PCP Internal Medicine; Visit Provider Nurse Practitioner Adult Health | DX: E11.22 Type 2 diabetes mellitus with diabetic chronic kidney disease (principal); N18.4 Chronic kidney disease, stage 4 (severe); Z79.4 Long term (current) use of insulin | CPT/HCPCS: 82947; 99212 ==

== ENCOUNTER → 2025-02-25 08:46 | Outpatient (REF) | payer OTHER, SELFPAY ==
--- NOTE | 2025-02-25 08:49 | CA_ITS ---
Acquisition Time: 2025-02-25 09:49:31 Total Exercise Time: 00:02:00 Test Indications: CP Medications: SEE H&P Protocol: LEXISCAN Max HR: 83 BPM 59% of Pred: 139 BPM Max BP: 154/70 mmHG Max Work Load: 1.0 METS Pharmacological stress test with Lexiscan while pt moves her legs in chair, with reports of abdominal discomfort and palpitations, without any arrythmias, with normotensive response to injection. Nondiagnostic EKG for ischemia. In recovery, pt treated with IVP Aminophylline 75 mg to reverse Lexiscan after which pt feeling back to baseline. Nuclear images pending. Test reviewed with Dr. Alcazar. Referred By: Juve Alcazar Electronically Signed By: Harlan Guerin
--- OUTSIDE RECORDS SUMMARY | 2025-02-25 09:08 | XMS_ITS | Clinical Summary ---
Author Organization [facility] Address [address] [place] [address] Phone Care Team Providers Care Retail Training Manager Name Role Phone Boaz Astorga MD Primary Care Provider +1- [phone] Allergies Active Allergy Reactions Criticality Noted Date [...] patient's age to complete this topic Insurance [place] [employer] [facility] ([id number]) [employer] [facility] ([id number]) Care Teams Retail Training Manager Relationship Specialty Start Date End Date oBaz Astorga MD [address] [place] [address] PCP - General 11/01/20
--- OUTSIDE RECORDS SUMMARY | 2025-02-25 09:08 | XMS_ITS ---
Author Organization [facility] Address [address] [place] [address] Care Team Providers Care Vegetable Worker Name Role Phone Boaz Astorga MD Primary Care Provider UnaYarely White Unavailable [phone] Encounters Encounter Location Date Provider Diagnosis [address] [address] 02/18/2025 Yarely Gibbs Plan Of Treatment Next Appt Details Provider Name:Yarely puckett, 04/14/2025 01:30:00 PM, [address] [place] [address], [address], Progress Notes * Alicia DUONGDOB:1945 (79 yo F)Acc No.[id number]:02/18/2025 Progress Note Patient:?Alicia DUONG Provider:?Yarely Gibbs DPM :1945???Age:79 Y???Sex:Female D ate:02/18/2025 Address:[address] [place] [address] Pcp:Boaz Astorga MD Subjective: * Chief Complaints: [...] DPM Date:? Generated for Mary Ann baca/Suzy/Ventura on:?02/25/2025 09:08 AM EDT
--- OUTSIDE RECORDS SUMMARY | 2025-02-25 09:08 | XMS_ITS ---
Author Organization [facility] rubina [place] Address [address] [place] [address] Care Team Providers Care Position Classification Manager Name Role Phone Martell Astorga MDneth Primary Care Provider Yarely Medina Unavailable [phone] REASON FOR VISIT sooner appt Encounters Encounter Location Date Provider Diagnosis [address] [address] 01/21/2025 Yarely Gibbs Plan Of Treatment Next Appt Details Provider Name:Yarely puckett, 04/14/2025 01:30:00 PM, [address] [place], [address], Progress Notes * Alicia DUONGDOB:1945 (79 yo F)Acc No.[id number]:01/21/2025 Patient:?Alicia DUONG :1945???Age:79 Y???Sex:Female Address:[address], [place], [address] * true * Date:? Generated for Printi ng/Ceceliag/eTransmitting on:?02/25/2025 09:08 AM EDT
--- OUTSIDE RECORDS SUMMARY | 2025-02-25 09:08 | XMS_ITS ---
Author Organization [facility] rubina [place] Address [address] [facility] [place] [address] Care Team Providers Care Template Storage Clerk Name Role Phone Boaz Astorga MD Primary Care Provider Yarely Medina Unavailable [phone] Allergies Allergen (clinical drug ingredient) Drug/Non Drug [...] day for 30 days Not-Erick ng Nystatin 536213 UNIT/GM 1 application Externally Twice a day [...] Problem Acquired hammer toe of right foot (7729475390997 105) Other hammer toe(s) (acquired), right foot (M20.41) Active confirmed Problem Acquired hammer toe of left foot (5608461249936 103) Other hammer toe(s) (acquired), left foot (M20.42) Active confirmed Vital Signs Height 5 ft in 01/21/2025 Weight 143 lbs 01/21/2025 BMI 27.92 kg/m2 01/21/2025 Blood pressure systolic 120 mm Hg 01/22/20 25 Blood pressure diastolic 77 mm Hg 025 Encounters Encounter Location Date Provider Diagnosis [facility] [address] [address] 01/21/2025 Yarely Gibbs Tinea pedis of both [...] Reason: Provider Name:Yarely puckett, 04/14/2025 01:30:00 PM, [address] [place] [address], [address], Procedure Notes * Category Sub-Category Detail [...] use of a nail nipper and/or dremel-type air grinder, to a more viable healthy nail [...] to maintain effectiveness in symptomatic relief - 79598 Keratoma Treatment Parring or Cutting o f [...] instrumentation by the physician of record - 15286 Progress Notes * Alicia DUONGDOB:1945 (79 yo F)Acc No.[id number]:01/21/2025 Progress Note Patient:?Alicia DUONG Provider:?Yarely Gibbs DPM :1945???Age:79 Y???Sex:Female D ate:01/21/2025 Address:[address] [place], [place] [id number] Pcp:Boaz Astorga MD Subjective: * Chief Complaints: [...] water pill stayed 2 days [place] [place]- 2 days - changed water pills 04/[place] BP -3 days * Family History:?Mother: [...] Externally as needed Twice a day Nystatin 934638 UNIT/GM Cream 1 application Externally Twice a [...] as needed Twice a day Not-Taking/PRN Nystatin 813678 UNIT/GM Cream 1 application Externally Twice a day Not-Taking/PRN Ciclopirox Olamine 0.77 % Cream 1 application to affected area Externally to feet Twice a day Medication List reviewed and reconciled with the patient * Allergies:?AspirinAmoxicillinAdhesiveLisinoprilHydrochlorothiazideCortisoneAmlod ipineIsosorbide DinitrateRanitidine 75NexiumCaffeineTopamaxDexilantSertralineDiclofenacEscitalopram OxalateMirtazapineNystatinWater Pills: Low blood pressure - Side EffectsBactrim: kidney issuesyes[Allergies Verified] Objective: * Vitals:?Ht: 5 ft, Wt: 143, B NC: 27.92, Shoe size: 8W, BP: 120/77 mm [...] use of a nail nipper and/or dremel-type air grinder, to a more viable healthy nail [...] to maintain effectiveness in symptomatic relief - 37209.?Keratoma Treatment:?Parring or Cutting of Benign Hyperkeratotic Lesion(s)?(-57) [...] instrumentation by the physician of record - 46375.? * Procedure Codes:?44368 DEBRI DE NAIL, 6 OR MORE, Modifiers: XS 71204 TRIM SKIN LESIONS, OVER 4, Modifiers: XS [...] GrangerM Date:?11/2024 Generated for Mary Ann baca/Suzy/Ventura on:?02/25/2025 09:08 AM EDT History and Physical Notes * [...]
--- OUTSIDE RECORDS SUMMARY | 2025-02-25 09:08 | XMS_ITS | Patient Health Record ---
Author Organization [facility] [place] Address [address] [place] [address] Care Team Providers Care Supplier Diversity Director Name Role Phone Rizwan SORENSON, Boaz Primary Care Provider Yarely Medina Unavailable [phone] Allergies Allergen (clinical drug ingredient) Drug/Non Drug [...] Boaz Referring Provider Last Name Rizwan Referred [facility] Referred Provider Yarely Gibbs Referred Address [address] [facility],[place],[address],[place] Referred Provider Specialty Podiatry Referral Priority Routine [...] Once a day Not-Taking Multivitamin Active Nystatin 617539 UNIT/GM 1 application Externally Twice a day [...] Problem Acquired hammer toe of right foot (27753231441654 05) Other hammer toe(s) (acquired), right foot (M20.41) Active confirmed Problem Type 2 diabetes mellitus with peripheral angiopathy (247299841) Type 2 diabetes mellitus with diabetic peripheral angiopathy without gangrene (E11.51) Active confirmed Problem Acquired hammer toe of left foot (17048373885667 03) Other hammer toe(s) (acquired), left foot (M20.42) Active confirmed Vital Signs Blood pressure diastolic 77 mm Hg 01/21/2025 Height 5 ft in 01/21/2025 Blood pressure systolic 120 mm Hg 01/21/2025 Weight 143 lbs 01/21/2025 BMI 27.92 kg/m2 01/21/2025 Encounters Encounter Location Date Provider Diagnosis [address] [address] 02/26/2024 Yarely Perica Tinea pedis of both feet B35.3 ; Type 2 diabetes mellitus with diabetic peripheral angiopathy without gangrene E11.51 ; Tinea unguium B35.1 ; Pain in left toe(s) M79.675 and Pain in right toe(s) M79.[address] [address] 07/09/2024 Yarely Perica Tinea pedis of both feet B35.3 ; Type 2 diabetes mellitus with diabetic peripheral angiopathy without gangrene E11.51 ; Tinea unguium B35.1 ; Pain in left toe(s) M79.675 and Pain in right toe(s) M79.[address] [address] 09/17/2024 Yarely Perica Tinea pedis of both feet B35.3 ; Type 2 diabetes mellitus with diabetic peripheral angiopathy without gangrene E11.51 ; Tinea unguium B35.1 ; Pain in left toe(s) M79.675 ; Pain in right toe(s) M79.674 and Xerosis cutis L85.[address] [address] 01/21/2025 Yarely Perica Tinea pedis of both feet B35.3 ; Other hammer toe(s) (acquired), right foot M20.41 ; Type 2 diabetes mellitus with diabetic peripheral angiopathy without gangrene E11.51 ; Tinea unguium B35.1 ; Pain in left toe(s) M79.675 ; Pain in right toe(s) M79.674 ; Xerosis cutis L85.3 and Other hammer toe(s) (acquired), left foot M20.[address] [facility] [address] [address] 05/26/2024 Yarely Perica [facility] [address] [address] 05/27/2024 Yarely Perica [facility] [address] [address] 07/02/2024 Yarely Perica [facility] [address] [address] 12/02/2024 Yarely Perica [facility] [address] [address] 01/21/2025 Yarely Gibbs Assessments Encounter Date Diagnosis [...] Provider Name:Yarely puckett, 04/14/2025 01:30:00 PM, [address] [place] [address], [address], Insurance Providers Payer Name Payer Address Payer Phone Subscriber Number Group Number Insured Name Patient Relationship to Insured Coverage Start Date Coverage End Date [facility] [address] [place] [phone] [id number] Alicia Noel Self - patient is the [...] days - changed wa ter pills 04/11 [facility] [place] blood pressure - water pill sta yed 2 days 03/07/2021
== END ==
LOC: HO.CARD 08:46
PROVIDERS: PCP Internal Medicine; Visit Provider Internal Medicine
DX: I42.9 Cardiomyopathy, unspecified (principal); R07.2 Precordial pain; I44.7 Left bundle-branch block, unspecified
CPT/HCPCS: 78452; 93017; A9500; J0280; J2785

== ENCOUNTER → 2025-02-25 08:49 | Outpatient (BNV) | payer OTHER, SELFPAY | PROVIDERS: PCP Internal Medicine | DX: R07.9 Chest pain, unspecified (principal) | CPT/HCPCS: 78452; 93016; 93018 ==

== ENCOUNTER 2025-03-03 10:30 | Outpatient (AMB) | payer OTHER, SELFPAY ==
--- NOTE | 2025-03-03 11:13 | A.OFFVIS_ITS ---
Intake Intake Visit Reasons: T2DM Social Security Assessor Required: No Accompanied by: Other Relationship Allergies aspirin [Aspirin] Allergy (Severe, Verified 02/19/25 12:49) MOUTH SWELLING hydrochlorothiazide [Hydrochlorothiazide] Allergy (Intermediate, Verified 02/19/25 12:49) DROP IN BLOOD PRESSURE Penicillins [PENICILLINS] Allergy (Intermediate, Verified 02/19/25 12:49) ITCHING caffeine [Caffeine] Allergy (Mild, Verified 02/19/25 12:49) NERVOUSNESS lisinopril [Lisinopril] Allergy (Mild, Verified 02/19/25 12:49) CHANGES IN BLOOD PRESSURE ranitidine [RANITIDINE] Allergy (Mild, Verified 02/19/25 12:49) HEADACHE amlodipine [AMLODIPINE] Allergy (Unknown, Verified 02/19/25) UNKNOWN amoxicillin Allergy (Unknown, Verified 02/19/25:49) itching, severe with rash diclofenac Allergy (Unknown, Verified 02/19/25 12:49) Unknown escitalopram Allergy (Unknown, Verified 02/19/25:49) abdominal discomfort, drowsiness esomeprazole [Nexium] Allergy (Unknown, Verified 02/19/25 12:49) Unknown isosorbide [ISOSORBIDE] Allergy (Unknown, Verified 02/19/25 12:49) UNKNOWN lidocaine [Lidoderm] Allergy (Unknown, Verified 02/19/25:49) weakness mirtazapine Allergy (Unknown, Verified 02/19/25:49) Unknown nystatin Allergy (Unknown, Verified 02/19/25 12:49) rash sertraline [SERTRALINE] Allergy (Unknown, Verified 02/19/25:49) UNKNOWN dexlansoprazole [From DEXILANT] Adverse Reaction (Severe, Verified 02/19/25 12:49) AGITATION hydrocortisone [From Cortizone-10] Adverse Reaction (Mild, Verified 02/19/25 12:49) RAISES BLOOD SUGAR topiramate [From TOPAMAX] Adverse Reaction (Unknown, Verified 02/19/25 12:49) AGITATION trajenta Allergy (Severe, Uncoded 02/19/25 12:49) numbness From PLAVIX Allergy (Unknown, Uncoded 02/19/25 12:49) PT UNSURE OF REACTION Medical tape Allergy (Unknown, Uncoded 02/19/25 12:49) Rash HPI Comprehensive Diabetes Asmnt Most Recent Diabetes Results: Hemoglobin A1c 7.4 % 05/26/20 Microalb/Creat Ratio 52.7 ug/mg cr (<30) H 02/11/25 Cholesterol 135 mg/dL (<200) 02/11/25 HDL Cholesterol 54 mg/dL (>40) 02/11/25 Triglycerides 56 mg/dL (<150) 02/11/25 Creatinine 2.55 mg/dL (0.5-1.4) H 02/11/25 Blood Urea Nitrogen 44 mg/dL (9-16) H 02/11/25 Sodium 137 mmol/L (135-145) 02/11/25 Potassium 4.4 mmol/L (3.3-5.1) 02/11/25 Chloride 106 mmol/L (96-108) 02/11/25 Carbon Dioxide 23 mmol/L (22-29) 02/11/25 Calcium 9.9 mg/dL (8.4-10.2) 02/11/25 AST 27 U/L (5-31) 02/11/25 ALT 17 U/L (0-31) 02/11/25 Total Protein 8.0 g/dL (6.5-8.0) 02/11/25 Albumin 4.5 g/dL (3.5-5.0) 02/11/25 [facility] Medical History Left bundle branch block Type 2 diabetes mellitus with chronic kidney disease Chronic kidney disease, stage 4 (severe) Type 2 diabetes mellitus Obesity Skin abrasion HARRIET (renal artery stenosis) Nonischemic cardiomyopathy Urinary incontinence GERD (gastroesophageal reflux disease) COVID-19 Pneumonia due to COVID-19 virus Vertigo Obesity (BMI 30-39.9) Depression Anxiety Stasis edema of both lower extremities Cardiomyopathy Pure hypercholesterolemia Hyperkalemia Renal artery stenosis Benign essential hypertension Conjunctival hemorrhage of right eye Surgical History Hx of colonoscopy Hx of myomectomy History of cataract surgery History of lumpectomy of left breast History of cholecystectomy Family History Father CVD (cardiovascular disease) Myocardial infarction Mother Myocardial infarction CVD (cardiovascular disease) Brother Myocardial infarction Family/Other FH: prostate cancer Social History Household Members: None Housing: Apartment Do you presently have visiting nurse or other home services: No Alcohol intake: never Patient Tobacco Use Status: Former Tobacco user Tobacco use type: Cigarette e-Cigarette/Vaping Use: Never Used Second Hand Smoke Exposure: No Advance Directives Date on File: 08/06/21 service: No Current occupational status: disabled Cognitive needs: No Hearing needs: No Vision needs: Yes Assessment & Plan Assessment & Plan (1) Type 2 diabetes mellitus: Code(s): E11.9 - Type 2 diabetes mellitus without complications Qualifiers: 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 intermediate insulin use: without intermediate use 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 complication status: with kidney complications 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 complication detail: with chronic kidney disease Chronic kidney disease stage: stage 4 (severe) Qualified Code(s): E11.22 - Type 2 diabetes mellitus with diabetic chronic kidney disease; N18.4 - Chronic kidney disease, stage 4 (severe) Plan: Patient at visit for follow-up blood glucose check, and diabetes education Patient is currently taking Lantus 6 units in the a.m., 2 units before supper Patient reports blood sugars below: Date Breakfast/Fasting Pre-Lunch Pre-Supper Bedtime Notes 03/03 118 03/02 142 224 194 313 03/01 128 186 143 294 02/28 140 212 97 244 02/27 103 8 67/148 196 262 02/25 77 158 181 190 Patient instructed to treat hypoglycemia with rule of 15s, patient reports she carries orange candies with her treat hypoglycemia. Was told to take 3. Since since reduction of insulin on 02/27 2025 patient has not experienced any episodes of hypoglycemia. Patient reports she is unable to wear CGM due to skin sensitivity/allergy Following topics discussed at visit: Blood glucose monitoring When/how often to test Target blood sugar ranges Introduction to Nutrition Importance of healthy diet in managing DM Diet is personalized to individual preference Review patient?s regular diet/food preferences Who prepares meals/does food shopping/ Dining out?/ Barriers? How diet effects glucose Eating 3 balanced meals a day with small, healthy snacks between meals Review food groups Carbohydrates: What is a carbohydrate/Which food/food groups are considered carbohydrates Effect of carbohydrates on blood glucose Portion sizes Reading food labels Basic carb counting (if applicable per nursing assessment) Plate method Meal planning Recommendations: Follow plate method, consistent carbs and read nutritional labels. Educational Materials: The patient was provided with the following written educational materials: Planning Healthy Meals Handout Plan/Goal:The patient met all learning objectives and was able to verbalize understanding and provide teach back of education topics discussed . The patient was provided with the opportunity to ask questions and all questions were answered. Patient will contact Diabetes Education or endocrine CLIENT RELATION SPECIALIST if she experiences hypoglycemia. Patient will follow-up with informatics educator in 3 months Portions of this note were created using voice recognition software, please excuse any words or phrases that may have been misinterpreted. Coding Level of Care Code Est Pt Level 1 (48684) Diagnoses Type 2 diabetes mellitus with stage 4 chronic kidney disease, without long-term current use of insulin E11.22; N18.4 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 rn long term care insulin use: without intermediate use 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 complication status: with kidney complications 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 complication detail: with chronic kidney disease Chronic kidney disease stage: stage 4 (severe)
--- OUTSIDE RECORDS SUMMARY | 2025-03-03 11:39 | XMS_ITS | Clinical Summary ---
Author Organization [facility] Address [address] [place] [address] Phone Care Team Providers Care Community Manager Name Role Phone Boaz Astorga MD Primary Care Provider [phone] Allergies Active Allergy Reactions Criticality Noted Date [...] patient's age to complete this topic Insurance [place] [facility] [facility] ([id number]) [place] [employer] [facility] ([id number]) Care Teams Community Manager Relationship Specialty Start Date End Date Boaz Astorga MD [address] [place] [address] PCP - General 11/01/20
--- OUTSIDE RECORDS SUMMARY | 2025-03-03 11:39 | XMS_ITS | Patient Health Record ---
Author Organization [facility] [place] Address [address] [place] [address] Care Team Providers Care Parts Analyst Name Role Phone Rizwan SORENSON, Boaz Primary Care Provider Yarely Medina Unavailable [phone] Allergies Allergen (clinical drug ingredient) Drug/Non Drug [...] Boaz Referring Provider Last Name Rizwan Referred [facility] Referred Provider Yarely Gibbs Referred Address [address],[place],[address],[place] Referred Provider Specialty Podiatry Referral Priority Routine [...] Once a day Not-Taking Multivitamin Active Nystatin 852384 UNIT/GM 1 application Externally Twice a day [...] Problem Acquired hammer toe of right foot (06150538896667 05) Other hammer toe(s) (acquired), right foot (M20.41) Active confirmed Problem Type 2 diabetes mellitus with peripheral angiopathy (904893551) Type 2 diabetes mellitus with diabetic peripheral angiopathy without gangrene (E11.51) Active confirmed Problem Acquired hammer toe of left foot (21502409255757 03) Other hammer toe(s) (acquired), left foot (M20.42) Active confirmed Vital Signs Blood pressure diastolic 77 mm Hg 01/21/2025 Height 5 ft in 01/21/2025 Blood pressure systolic 120 mm Hg 01/21/2025 Weight 143 lbs 01/21/2025 BMI 27.92 kg/m2 01/21/2025 Encounters Encounter Location Date Provider Diagnosis [address] [address] 07/09/2024 Yarely Perica Tinea pedis of both feet B35.3 ; Type 2 diabetes mellitus with diabetic peripheral angiopathy without gangrene E11.51 ; Tinea unguium B35.1 ; Pain in left toe(s) M79.675 and Pain in right toe(s) M79.[address] [address] 09/17/2024 Yarely Perica Tinea pedis of both feet B35.3 ; Type 2 diabetes mellitus with diabetic peripheral angiopathy without gangrene E11.51 ; Tinea unguium B35.1 ; Pain in left toe(s) M79.675 ; Pain in right toe(s) M79.674 and Xerosis cutis L85.[address] [address] 01/21/2025 Yarely Perica Tinea pedis of both feet B35.3 ; Other hammer toe(s) (acquired), right foot M20.41 ; Type 2 diabetes mellitus with diabetic peripheral angiopathy without gangrene E11.51 ; Tinea unguium B35.1 ; Pain in left toe(s) M79.675 ; Pain in right toe(s) M79.674 ; Xerosis cutis L85.3 and Other hammer toe(s) (acquired), left foot M20.42 [address] [address] [place] [address] 05/26/2024 Yarely Gibbs [facility] [address] [address] 05/27/2024 Yarely Perica [facility] [place] [address] [place] [address] 07/02/2024 Yarely Perica [facility] [address] [address] 12/02/2024 Yarely Perica [facility] [address] [address] 01/21/2025 Yarely Gibbs Assessments Encounter Date Diagnosis [...] E11.51) 07/09/2024 Tinea unguium (ICD-10 - B35.1) 09/17/2024 [...] Details Provider Name:Yarely puckett, 04/14/2025 01:30:00 PM, [address] [place] [address], [phone], Insurance Providers Payer Name Payer Address Payer Phone Subscriber Number Group Number Insured Name Patient Relationship to Insured Coverage Start Date Coverage End Date [facility] [address] [place] [phone] [id number] Alicia Noel Self - patient is the insured Medical (General) History Medical History History ICD Code Angina Anxiety Arthritis Back, Hip, Knee Pain Depression Headaches/Migraines Heart Disease High Blood Pressure Poor Circulation Psychiatric Disorder CAD (Cholesterol) type II diabetes Crack in the ribs Surgical History Surgery Date(Month/Year) gall bladder Surgery lumpectomy cataracts Fibroid Hospitalization History Reason Date(Month/Year) [facility]- High BP -3 days [facility]- blood pressure- 2 days - changed wa ter pills 04/11 [facility]- low blood pressure - water pill sta yed 2 days 03/07/2021
--- OUTSIDE RECORDS SUMMARY | 2025-03-03 11:39 | XMS_ITS ---
Author Organization [facility] Address [address] [place] [address] Care Team Providers Care Consumer Safety Officer Name Role Phone Boaz Astorga MD Primary Care Provider UnaYarely White Unavailable [phone] Encounters Encounter Location Date Provider Diagnosis [address] [address] 02/18/2025 Yarely Gibbs Plan Of Treatment Next Appt Details Provider Name:Yarely puckett, 04/14/2025 01:30:00 PM, [address] [place] [address], [address], Progress Notes * Alicia DUONGDOB:1945 (79 yo F)Acc No.[id number]:02/18/2025 Progress Note Patient:?Alicia DUONG Provider:?Yarely Gibbs DPM :1945???Age:79 Y???Sex:Female D ate:02/18/2025 Address:[address] [place] [address] Pcp:Boaz Astorga MD Subjective: * Chief Complaints: [...] DPM Date:? Generated for Mary Ann baca/Suzy/Ventura on:?03/03/2025 11:39 AM EDT
--- OUTSIDE RECORDS SUMMARY | 2025-03-03 11:39 | XMS_ITS ---
Author Organization [facility] [place] Address [address] [place] [address] Care Team Providers Care Allocations Clerk Name Role Phone Martell Astorga MDneth Primary Care Provider Yarely Medina Unavailable [phone] REASON FOR VISIT sooner appt Encounters Encounter Location Date Provider Diagnosis [address] [address] 01/21/2025 Yarely Gibbs Plan Of Treatment Next Appt Details Provider Name:Yarely puckett, 04/14/2025 01:30:00 PM, [address] [place], [address], Progress Notes * Alicia DUONGDOB:1945 (79 yo F)Acc No.[id number]:01/21/2025 Patient:?Alicia DUONG :1945???Age:79 Y???Sex:Female Address:[address], [place], [address] * true * Date:? Generated for Printi ng/Farikg/eTransmitting on:?03/03/2025 11:39 AM EDT
--- OUTSIDE RECORDS SUMMARY | 2025-03-03 11:39 | XMS_ITS ---
Author Organization [facility]ina [place] Address [address] [place] [address] Care Team Providers Care Reel Operator Name Role Phone Boaz Astorga MD Primary Care Provider Yarely Medina Unavailable [phone] Allergies Allergen (clinical drug ingredient) Drug/Non Drug [...] day for 30 days Not-Erick ng Nystatin 750092 UNIT/GM 1 application Externally Twice a day [...] Problem Acquired hammer toe of right foot (6424564841840 105) Other hammer toe(s) (acquired), right foot (M20.41) Active confirmed Problem Other hammer toe(s) (acquired), left foot (M20.42) Active confirmed Vital Signs Height 5 ft in 01/21/2025 Weight 143 lbs 01/21/2025 BMI 27.92 kg/m2 01/21/2025 Blood pressure systolic 120 mm Hg 01/22/20 25 Blood pressure diastolic 77 mm Hg 025 Encounters Encounter Location Date Provider Diagnosis [facility] [address] [address] 01/21/2025 Yarely Gibbs Tinea pedis of both [...] Reason: Provider Name:Yarely puckett, 04/14/2025 01:30:00 PM, [address] [place] [address], [address], Procedure Notes * Category Sub-Category Detail Notes [...] use of a nail nipper and/or dremel-type glaze grinder, to a more viable healthy nail [...] to maintain effectiveness in symptomatic relief - 21662 Keratoma Treatment Parring or Cutting o f [...] instrumentation by the physician of record - 34686 Progress Notes * Ailcia DUONGDOB:1945 (79 yo F)Acc No.[id number]:01/21/2025 Progress Note Patient:?Alicia DUONG Provider:?Yarely Gibbs DPM :1945???Age:79 Y???Sex:Female D ate:01/21/2025 Address:[address] [place], [place] [address] Pcp:Boaz Astorga MD Subjective: * Chief Complaints: [...] - water pill stayed 2 days 03/07/2021[facility]- blood pressure- 2 days - changed water pills 04/11[facility]- High BP -3 days * Family History:?Mother: [...] Externally as needed Twice a day Nystatin 306322 UNIT/GM Cream 1 application Externally Twice a [...] as needed Twice a day Not-Taking/PRN Nystatin 492892 UNIT/GM Cream 1 application Externally Twice a day Not-Taking/PRN Ciclopirox Olamine 0.77 % Cream 1 application to affected area Externally to feet Twice a day Medication List reviewed and reconciled with the patient * Allergies:?AspirinAmoxicillinAdhesiveLisinoprilHydrochlorothiazideCortisoneAmlod ipineIsosorbide DinitrateRanitidine 75NexiumCaffeineTopamaxDexilantSertralineDiclofenacEscitalopram OxalateMirtazapineNystatinWater Pills: Low blood pressure - Side EffectsBactrim: kidney issuesyes[Allergies Verified] Objective: * Vitals:?Ht: 5 ft, Wt: 143, B LA: 27.92, Shoe size: 8W, BP: 120/77 mm [...] use of a nail nipper and/or dremel-type glaze grinder, to a more viable healthy nail [...] to maintain effectiveness in symptomatic relief - 30226.?Keratoma Treatment:?Parring or Cutting of Benign Hyperkeratotic Lesion(s)?(-57) [...] instrumentation by the physician of record - 47775.? * Procedure Codes:?88940 DEBRI DE NAIL, 6 OR MORE, Modifiers: XS 47306 TRIM SKIN LESIONS, OVER 4, Modifiers: XS [...] status: Completed true * Provider:?Yarely Gibbs DPM Date:?11/2024 Generated for Mary Ann baca/Suzy/eTransmitting on:?03/03/2025 11:39 AM EDT History and Physical Notes * [...]
== END 2025-03-03 11:18 | disposition home or self-care (01) ==
LOC: HO.ENCR 10:31
PROVIDERS: PCP Internal Medicine; Visit Provider Registered Nurse Diabetes Educator
DX: E11.22 Type 2 diabetes mellitus with diabetic chronic kidney disease (principal); N18.4 Chronic kidney disease, stage 4 (severe)

== ENCOUNTER → 2025-03-03 10:30 | Outpatient (BNVA) | payer OTHER, SELFPAY | PROVIDERS: PCP Internal Medicine; Visit Provider Registered Nurse Diabetes Educator | DX: E11.22 Type 2 diabetes mellitus with diabetic chronic kidney disease (principal); N18.4 Chronic kidney disease, stage 4 (severe); Z79.4 Long term (current) use of insulin | CPT/HCPCS: 99211 ==

== ENCOUNTER 2025-03-06 12:38 | Outpatient (REF) | payer OTHER, SELFPAY ==
--- OUTSIDE RECORDS SUMMARY | 2025-03-06 12:41 | XMS_ITS | Patient Health Record ---
Author [facility] [place] Address [address] [facility] [place] [address] Care Team Providers Care Property And Equipment Clerk Name Role Phone Rizwan SORENSON, Boaz Primary Care Provider Yarely Medina Unavailable [phone] Allergies Allergen (clinical drug ingredient) Drug/Non Drug [...] Boaz Referring Provider Last Name Rizwan Referred [facility] Referred Provider Yarely Gibbs Referred Address [address],[place], [place],[address],[place] Referred Provider Specialty Podiatry Referral Priority Routine [...] Once a day Not-Taking Multivitamin Active Nystatin 390192 UNIT/GM 1 application Externally Twice a day [...] Problem Acquired hammer toe of right foot (58192792225477 05) Other hammer toe(s) (acquired), right foot (M20.41) Active confirmed Problem Type 2 diabetes mellitus with peripheral angiopathy (854275209) Type 2 diabetes mellitus with diabetic peripheral angiopathy without gangrene (E11.51) Active confirmed Problem Acquired hammer toe of left foot (73503650120049 03) Other hammer toe(s) (acquired), left foot (M20.42) Active confirmed Vital Signs Blood pressure diastolic 77 mm Hg 01/21/2025 Height 5 ft in 01/21/2025 Blood pressure systolic 120 mm Hg 01/21/2025 Weight 143 lbs 01/21/2025 BMI 27.92 kg/m2 01/21/2025 Encounters Encounter Location Date Provider Diagnosis [address] [address] 07/09/2024 Yarely Perica Tinea pedis of both feet B35.3 ; Type 2 diabetes mellitus with diabetic peripheral angiopathy without gangrene E11.51 ; Tinea unguium B35.1 ; Pain in left toe(s) M79.675 and Pain in right toe(s) M79.[address] [address] 09/17/2024 Yarely Perica Tinea pedis of both feet B35.3 ; Type 2 diabetes mellitus with diabetic peripheral angiopathy without gangrene E11.51 ; Tinea unguium B35.1 ; Pain in left toe(s) M79.675 ; Pain in right toe(s) M79.674 and Xerosis cutis L85.[address] [address] 01/21/2025 Yarely Perica Tinea pedis of both feet B35.3 ; Other hammer toe(s) (acquired), right foot M20.41 ; Type 2 diabetes mellitus with diabetic peripheral angiopathy without gangrene E11.51 ; Tinea unguium B35.1 ; Pain in left toe(s) M79.675 ; Pain in right toe(s) M79.674 ; Xerosis cutis L85.3 and Other hammer toe(s) (acquired), left foot M20.42 [address] [address] [place] [address] 05/26/2024 Yarely Gibbs [facility] [address] [address] 05/27/2024 Yarely Perica [facility] [place] [address] [place] [address] 07/02/2024 Yarely Perica [facility] [address] [address] 12/02/2024 Yarely Perica [facility] [address] [address] 01/21/2025 Yarely Gibbs Assessments Encounter Date Diagnosis [...] Provider Name:Yarely puckett, 04/14/2025 01:30:00 PM, [address] [place] [address], [phone], Insurance Providers Payer Name Payer Address Payer Phone Subscriber Number Group Number Insured Name Patient Relationship to Insured Coverage Start Date Coverage End Date [facility] [address] [place] [phone] [id number] Alicia Noel Self - patient is the [...]
--- OUTSIDE RECORDS SUMMARY | 2025-03-06 12:41 | XMS_ITS ---
Author Organization [facility] Address [address] [place] [address] Care Team Providers Care Sec Accountant Name Role Phone Boaz Astorga MD Primary Care Provider UnaYarely White Unavailable [phone] Encounters Encounter Location Date Provider Diagnosis [address] [address] 02/18/2025 Yarely Gibbs Plan Of Treatment Next Appt Details Provider Name:Yarely puckett, 04/14/2025 01:30:00 PM, [address] [place] [address], [phone], Progress Notes * Alicia DUONGDOB:1945 (79 yo F)Acc No.[id number]:02/18/2025 Progress Note Patient:?Alicia DUONG Provider:?Yarely Gibbs DPM :1945???Age:79 Y???Sex:Female D ate:02/18/2025 Address:[address] [place] [address] Pcp:Boaz Astorga MD Subjective: * Chief Complaints: [...] Gibbs DPM Date:? Generated for Mary Ann abca/Suzy/Ventura on:?03/06/2025 12:40 PM EDT
--- OUTSIDE RECORDS SUMMARY | 2025-03-06 12:41 | XMS_ITS ---
Author Organization [facility] rubina [place] Address [address] [place] [address] Care Team Providers Care Managed Services Consultant Name Role Phone Martell Astorga MDneth Primary Care Provider Yarely Medina Unavailable [phone] REASON FOR VISIT sooner appt Encounters Encounter Location Date Provider Diagnosis [address] [address] 01/21/2025 Yarely Gibbs Plan Of Treatment Next Appt Details Provider Name:Yarely puckett, 04/14/2025 01:30:00 PM, [address] [place], [address], Progress Notes * Alicia DUONGDOB:1945 (79 yo F)Acc No.[id number]:01/21/2025 Patient:?Alicia DUONG :1945???Age:79 Y???Sex:Female Address:[address], [place], [address] * true * Date:? Generated for Printi ng/Farikg/eTransmitting on:?03/06/2025 12:41 PM EDT
--- OUTSIDE RECORDS SUMMARY | 2025-03-06 12:41 | XMS_ITS ---
Author Organization [facility] [place] Address [address] [facility] [place] [address] Care Team Providers Care Lead Recoverer Name Role Phone Boaz Astorga MD Primary Care Provider Yarely Medina Unavailable [phone] Allergies Allergen (clinical drug ingredient) Drug/Non Drug [...] day for 30 days Not-Erick ng Nystatin 344922 UNIT/GM 1 application Externally Twice a day [...] Problem Acquired hammer toe of right foot (4820436581183 105) Other hammer toe(s) (acquired), right foot (M20.41) Active confirmed Problem Acquired hammer toe of left foot (0240193171163 103) Other hammer toe(s) (acquired), left foot (M20.42) Active confirmed Vital Signs Height 5 ft in 01/21/2025 Weight 143 lbs 01/21/2025 BMI 27.92 kg/m2 01/21/2025 Blood pressure systolic 120 mm Hg 01/22/20 25 Blood pressure diastolic 77 mm Hg 025 Encounters Encounter Location Date Provider Diagnosis [facility] [address] [address] 01/21/2025 Yarely Gibbs Tinea pedis of both [...] Reason: Provider Name:Yarely puckett, 04/14/2025 01:30:00 PM, [address] [place] [address], [phone], Procedure Notes * Category Sub-Category Detail [...] to maintain effectiveness in symptomatic relief - 88551 Keratoma Treatment Parring or Cutting o f [...] instrumentation by the physician of record - 45017 Progress Notes * Alicia DUONGDOB:1945 (79 yo F)Acc No.[id number]:01/21/2025 Progress Note Patient:?Alicia DUONG Provider:?Yarely Gibbs DPM :1945???Age:79 Y???Sex:Female D ate:01/21/2025 Address:[address] [place], [place] [id number] Pcp:Boaz Astorga MD Subjective: * Chief Complaints: [...] pressure - water pill stayed 2 days 03/07/2021[facility]- blood pressure- 2 days - changed water pills 04/11[facility]- High BP -3 days * Family History:?Mother: [...] Externally as needed Twice a day Nystatin 004052 UNIT/GM Cream 1 application Externally Twice a [...] as needed Twice a day Not-Taking/PRN Nystatin 718314 UNIT/GM Cream 1 application Externally Twice a day Not-Taking/PRN Ciclopirox Olamine 0.77 % Cream 1 application to affected area Externally to feet Twice a day Medication List reviewed and reconciled with the patient * Allergies:?AspirinAmoxicillinAdhesiveLisinoprilHydrochlorothiazideCortisoneAmlod ipineIsosorbide DinitrateRanitidine 75NexiumCaffeineTopamaxDexilantSertralineDiclofenacEscitalopram OxalateMirtazapineNystatinWater Pills: Low blood pressure - Side EffectsBactrim: kidney issuesyes[Allergies Verified] Objective: * Vitals:?Ht: 5 ft, Wt: 143, B IL: 27.92, Shoe size: 8W, BP: 120/77 mm [...] to maintain effectiveness in symptomatic relief - 45897.?Keratoma Treatment:?Parring or Cutting of Benign Hyperkeratotic Lesion(s)?(-57) [...] instrumentation by the physician of record - 61867.? * Procedure Codes:?36047 DEBRI DE NAIL, 6 OR MORE, Modifiers: XS 16066 TRIM SKIN LESIONS, OVER 4, Modifiers: XS [...] GrangerM Date:?11/2024 Generated for Mary Ann baca/Suzy/Jonathonitting on:?03/06/2025 12:40 PM EDT History and Physical Notes * [...]
[2025-03-06 12:54] LABS: MANUAL DIFF FLAG NO
[2025-03-06 13:17] LABS: Basophils Percent Auto 0.6 % (0-2); Eosinophils Absolute Auto 0.1 X10*3/uL (0.0-0.4); Eosinophils Percent Auto 1.6 % (0-4); Hematocrit 33.6 % (37.0-47.0); Hemoglobin 11.1 g/dl (12.0-16.0); Imm Gran Abs Auto 0.02 X10*3/uL (0.00-0.03); Imm Gran Pct Auto 0.4 % (0.0-0.4); Lymphocytes Percent Auto 20.2 % (20-40); Mean Corpuscular Hemoglobin 31.1 pg (27.0-33.0); Mean Corpuscular Volume 94.1 fL (80.0-98.0); Mean Platelet Volume 11.7 fL (9.4-12.3); Monocytes Absolute Auto 0.7 X10*3/uL (0.1-1.2); Monocytes Percent Auto 12.8 % (2-11); Neutrophils Absolute Auto 3.3 x10*3/uL (2.0-8.3); Neutrophils Percent Auto 64.4 % (45-73); Platelet Count 202 X10*3/uL (160-400); Red Blood Count 3.57 X10*6/uL (4.20-5.50); Red Cell Distribution Width 13.2 % (11.0-16.0); White Blood Count 5.1 X10*3/uL (4.8-10.8)
[2025-03-06 13:55] LABS: Anion Gap 13 (12-20); Blood Urea Nitrogen 52 mg/dL (9-16); Calcium 9.5 mg/dL (8.4-10.2); Carbon Dioxide 25 mmol/L (22-29); Chloride 103 mmol/L (96-108); Estimated Glomerular Filt Rate 17; Iron 63 mcg/dL (30-160); Percent Iron Saturation 19 % (15-50); Phosphorus 3.3 mg/dL (2.7-4.5); Potassium 4.7 mmol/L (3.3-5.1); Sodium 136 mmol/L (135-145); Total Iron Binding Capacity 331 mcg/dL (228-428); Unsaturated Iron Binding 268 ug/dL
[2025-03-06 14:12] LABS: Ferritin 24 ng/mL (10-250)
== END 2025-03-06 12:39 | disposition home or self-care (01) ==
LOC: HO.LAB 12:38
PROVIDERS: PCP Internal Medicine; Visit Provider Internal Medicine Nephrology
DX: N25.81 Secondary hyperparathyroidism of renal origin (principal); I15.0 Renovascular hypertension; N18.4 Chronic kidney disease, stage 4 (severe); E11.22 Type 2 diabetes mellitus with diabetic chronic kidney disease
CPT/HCPCS: 36415; 80051; 82306; 82310; 82565; 82728; 83540; 83970; 84100; 84520; 85025

== ENCOUNTER 2025-03-20 11:14 | Outpatient (AMB) | payer OTHER, SELFPAY ==
--- NOTE | 2025-03-20 11:27 | HO.NEPHOV_ITS ---
Vital Signs 03/20/25: Height 5 ft Weight 137 lb 6 oz BMI 26.8 BP 140/64 H Blood Pressure Location Rt brachial Position Sitting Pulse 61 Pulse Source Pulse Oximeter Pulse Oximetry (%) 98 Oxygen Delivery Method Room Air Intake Visit Reasons: Requested to be seen sooner by Dr Madrigal Division Officer [employer] Required: No Accompanied by: Self / Same As Patient Allergies aspirin [Aspirin] Allergy (Severe, Verified 03/20/25 11:31) MOUTH SWELLING hydrochlorothiazide [Hydrochlorothiazide] Allergy (Intermediate, Verified 03/20/25 11:31) DROP IN BLOOD PRESSURE Penicillins [PENICILLINS] Allergy (Intermediate, Verified 03/20/25:) ITCHING caffeine [Caffeine] Allergy (Mild, Verified 03/20/25:) NERVOUSNESS lisinopril [Lisinopril] Allergy (Mild, Verified 03/20/25:) CHANGES IN BLOOD PRESSURE ranitidine [RANITIDINE] Allergy (Mild, Verified 03/20/25 11:) HEADACHE amlodipine [AMLODIPINE] Allergy (Unknown, Verified 03/20/25) UNKNOWN amoxicillin Allergy (Unknown, Verified 03/20/25:) itching, severe with rash diclofenac Allergy (Unknown, Verified 03/20/25 11:) Unknown escitalopram Allergy (Unknown, Verified 03/20/25:) abdominal discomfort, drowsiness esomeprazole [Nexium] Allergy (Unknown, Verified 03/20/25 11:) Unknown isosorbide [ISOSORBIDE] Allergy (Unknown, Verified 03/20/25 11:) UNKNOWN lidocaine [Lidoderm] Allergy (Unknown, Verified 03/20/25:) weakness mirtazapine Allergy (Unknown, Verified 03/20/25 11:) Unknown nystatin Allergy (Unknown, Verified 03/20/25 11:) rash sertraline [SERTRALINE] Allergy (Unknown, Verified 03/20/25 11:) UNKNOWN dexlansoprazole [From DEXILANT] Adverse Reaction (Severe, Verified 03/20/25 11:31) AGITATION hydrocortisone [From Cortizone-10] Adverse Reaction (Mild, Verified 03/20/25 11:31) RAISES BLOOD SUGAR topiramate [From TOPAMAX] Adverse Reaction (Unknown, Verified 03/20/25 11:31) AGITATION trajenta Allergy (Severe, Uncoded 02/19/25 12:49) numbness From PLAVIX Allergy (Unknown, Uncoded 02/19/25 12:49) PT UNSURE OF REACTION Medical tape Allergy (Unknown, Uncoded 02/19/25 12:49) Rash HPI Comments Details: Alicia was seen in follow for her advanced CKD. She is known to have DM for a long time. She had a questionable allergy reaction to it and was seen in ER where her DPP4 was D/John. Her BS is fluctuant. She also has hypertension. She does not take NSAID's regularly. She denies any nausea, vomiting, diarrhea, SOB, edema, PND, orthopnea, hematuria, hearing deficits. She claims to be compliant with medications. She is not on SGLT2i. She has no sinusitis, epistaxis, photosensitivity, bone pain, sore throat , hemoptysis, skin lesions or recent antibiotic intake. Her BP at home has been at goal. [facility] Medical History Left bundle branch block Type 2 diabetes mellitus with chronic kidney disease Chronic kidney disease, stage 4 (severe) Type 2 diabetes mellitus Obesity Skin abrasion HARRIET (renal artery stenosis) Nonischemic cardiomyopathy Urinary incontinence GERD (gastroesophageal reflux disease) COVID-19 Pneumonia due to COVID-19 virus Vertigo Obesity (BMI 30-39.9) Depression Anxiety Stasis edema of both lower extremities Cardiomyopathy Pure hypercholesterolemia Hyperkalemia Renal artery stenosis Benign essential hypertension Conjunctival hemorrhage of right eye Surgical History Hx of colonoscopy Hx of myomectomy History of cataract surgery History of lumpectomy of left breast History of cholecystectomy Family History Father CVD (cardiovascular disease) Myocardial infarction Mother Myocardial infarction CVD (cardiovascular disease) Brother Myocardial infarction Family/Other FH: prostate cancer Social History Household Members: None Housing: Apartment Do you presently have visiting nurse or other home services: No Alcohol intake: never Patient Tobacco Use Status: Former Tobacco user Tobacco use type: Cigarette e-Cigarette/Vaping Use: Never Used Second Hand Smoke Exposure: No Advance Directives Date on File: 08/06/21 service: No Current occupational status: disabled Cognitive needs: No Hearing needs: No Vision needs: Yes Review of Systems Const All systems reviewed & are unremarkable except as noted in HPI and below Physical Exam Vital Signs: Last Vital Signs Pulse 61 03/20/25 11:31 BP 140/64 H 03/20/25 11:31 Pulse Ox 98 03/20/25 11:31 Oxygen Delivery Method Room Air 03/20/25 11:31 BMI result Body Mass Index 26.8 Const General: comfortable and no acute distress Orientation/consciousness: patient oriented x3 HEENT Head: Yes normocephalic Mouth: Normal oral and palatal mucosa present Eyes EOM: EOMs intact bilaterally Neck Neck: Yes supple Resp Auscultation: clear to auscultation bilaterally Cardio Jugular venous distension: no JVD Rate: regular rate GI Palpation (GI): Soft to palpation Auscultation: normal bowel sounds General: Yes no CVA tenderness Back/Spine/Pelvis Back: no CVA tenderness Skin General skin exam: no rashes or lesions noted Neuro General: patient oriented x3 and moves all extremities Extrem General: Yes no pedal edema Results Reviewed Nephrology Results: Hgb 11.1 g/dl (12.0-16.0) L 03/06/25 WBC 5.1 X10*3/uL (4.8-10.8) 03/06/25 Plt Count 202 X10*3/uL (160-400) 03/06/25 Sodium 136 mmol/L (135-145) 03/06/25 Potassium 4.7 mmol/L (3.3-5.1) 03/06/25 Chloride 103 mmol/L (96-108) 03/06/25 Carbon Dioxide 25 mmol/L (22-29) 03/06/25 BUN 52 mg/dL (9-16) H 03/06/25 Creatinine 2.66 mg/dL (0.5-1.4) H 03/06/25 Calcium 9.5 mg/dL (8.4-10.2) 03/06/25 Phosphorus 3.3 mg/dL (2.7-4.5) 03/06/25 PTH Intact 202.0 pg/mL (8.7-77.1) H 03/06/25 Assessment & Plan Assessment & Plan (1) Type 2 diabetes mellitus with chronic kidney disease: Code(s): E11.22 - Type 2 diabetes mellitus with diabetic chronic kidney disease Category: Medical Qualifiers: 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 jail insulin use: without jail use Chronic kidney disease stage: stage 4 (severe) Qualified Code(s): E11.22 - Type 2 diabetes mellitus with diabetic chronic kidney disease; N18.4 - Chronic kidney disease, stage 4 (severe) (2) Secondary hyperparathyroidism (of renal origin): Code(s): N25.81 - Secondary hyperparathyroidism of renal origin Category: Medical (3) Hypertension: Code(s): I10 - Essential (primary) hypertension Category: Medical Qualifiers: Hypertension type: renovascular hypertension Qualified Code(s): I15.0 - Renovascular hypertension (4) Chronic kidney disease, stage 4 (severe): Code(s): N18.4 - Chronic kidney disease, stage 4 (severe) Category: Medical Plan BP at goal at home. On statins; BS needs to be optimized Doppler renal arteries- No significant HARRIET Has infra renal AAA- See by Dr Araiza (Infrarenal abdominal aortic aneurysm measuring 2.7 cm. Based on published guidelines in J Am Abdoulaye Radiol 2013; 10(10):789-794 and J Vasc Surg. 2018; 67:2-77, the recommendation for an abdominal aorta with diameter 2.6-2.9 cm is follow-up every 5 years if the aorta that meets the criteria for AAA (>1.5 x proximal normal segment; no f/u if < 1.5 x proximal normal segment; no f/u for aorta < 2.6 cm) Has 24 hour urine for cr cl-- stable Aware about renal replacement if her renal func declines Started Vitamin D 2000 U daily Will need activated Vitamin D soon Follow up labs ordered; F/U in 2 months Orders: Orders Electrolytes 2 Months N18.4 - Chronic kidney disease, stage 4 (severe) Calcium 2 Months N18.4 - Chronic kidney disease, stage 4 (severe) Creatinine 2 Months N18.4 - Chronic kidney disease, stage 4 (severe) Blood Urea Nitrogen 2 Months N18.4 - Chronic kidney disease, stage 4 (severe) Medications: New cholecalciferol (vitamin D3) 50 mcg PO DAILY 30 caps 6RF Coding Level of Care Code Est Pt Level 4 (46793) Diagnoses Type 2 diabetes mellitus with stage 4 chronic kidney disease, without long-term current use of insulin E11.22; N18.4 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 termite helper insulin use: without jail use Chronic kidney disease stage: stage 4 (severe) Secondary hyperparathyroidism (of renal origin) N25.81 Renovascular hypertension I15.0 Hypertension type: renovascular hypertension Chronic kidney disease, stage 4 (severe) N18.4
[2025-03-20 11:31] VITALS: BP 140/64; PULSE 61; O2SAT 98; BMI 26.8
--- OUTSIDE RECORDS SUMMARY | 2025-03-20 12:11 | XMS_ITS ---
Author Organization [facility] Address [address] [facility] [place] [address] Care Team Providers Care Department Traffic Freight Router Name Role Phone Boaz Astorga MD Primary Care Provider Yarely Medina Unavailable [phone] Medications Medication SIG (Take, Route, Frequency, Duration) [...] day for 30 days 06/06/2023 Active Nystatin 123356 UNIT/GM 1 application Externally Twice a day [...] Active Encounters Encounter Location Date Provider Diagnosis [facility] [address] [address] 12/02/2024 Yarely Gibbs Plan Of Treatment Next Appt Details Provider Name:Yarely puckett, 04/14/2025 01:30:00 PM, [address] [place] [address], [phone], Progress Notes * Alicia DUONGDOB:1945 (79 yo F)Acc No.[id number]:12/02/2024 Progress Note Patient:?Alicia DUONG Provider:?Yarely Gibbs DPM :1945???Age:79 Y???Sex:Female D ate:12/02/2024 Address:[address] [place], [place] [id number] Pcp:Boaz Astorga MD Subjective: * Chief Complaints: [...] needed Twice a day , Not-Taking/PRN Nystatin 984266 UNIT/GM Cream 1 application Externally Twice a [...] DPM Date:?08/2025 Generated for Mary Ann baca/Suzy/Ventura on:?03/20/2025 12:11 PM EDT History and Physical Notes * HPI (History of Present Illness) Category Sub-Category Detail Notes Category Not es At Risk footcare Pt States Last PCP Visit: Date: 4
== END 2025-03-20 12:11 | disposition home or self-care (01) ==
LOC: HO.HKA 11:15
PROVIDERS: PCP Internal Medicine; Visit Provider Internal Medicine Nephrology
DX: I12.9 Hypertensive chronic kidney disease with stage 1 through stage 4 chronic kidney disease, or unspecified chronic kidney disease (principal); E11.22 Type 2 diabetes mellitus with diabetic chronic kidney disease; N18.4 Chronic kidney disease, stage 4 (severe); I71.43 Infrarenal abdominal aortic aneurysm, without rupture; N25.81 Secondary hyperparathyroidism of renal origin
CPT/HCPCS: 99214

== ENCOUNTER → 2025-03-20 11:14 | Outpatient (BNVA) | payer OTHER, SELFPAY | PROVIDERS: PCP Internal Medicine; Visit Provider Internal Medicine Nephrology | DX: E11.22 Type 2 diabetes mellitus with diabetic chronic kidney disease (principal); N18.4 Chronic kidney disease, stage 4 (severe); I15.0 Renovascular hypertension; N25.81 Secondary hyperparathyroidism of renal origin | CPT/HCPCS: 99212 ==

== ENCOUNTER 2025-03-27 10:05 | Outpatient (REF) | payer OTHER, SELFPAY ==
--- NOTE | ~2025-03-27 | MM_ITS ---
EXAMINATION: MM SCREENING DIGITAL BREAST TOMOSYNTHESIS, BILATERAL CLINICAL INFORMATION: Screening. Asymptomatic. COMPARISON: Mammography: Comparison is made with available priors TECHNIQUE: Digital breast mammography with tomosynthesis is performed in both the craniocaudal and mediolateral oblique views along with computer-aided detection (CAD). FINDINGS: There are scattered areas of fibroglandular density (ACR BI-RADS breast composition Category b). Bilateral postsurgical changes are stable. Bilateral benign calcifications secretory are stable. There are no significant masses, abnormal calcifications, or other abnormalities. MM/MM tomosynthesis screening BI IMPRESSION: No mammographic evidence of malignancy. ASSESSMENT: BI-RADS BI-RADS 2 - Benign Findings RECOMMENDATION: Routine annual mammography screening. 1 year F/U This examination should not preclude the clinical evaluation of a suspicious palpable abnormality. This patient's information was entered into a reminder system with a target due date for their next mammogram. Electronically signed by: Gayle Martinez DO 04/01/2025 12:52 PM EDT
--- OUTSIDE RECORDS SUMMARY | 2025-03-27 10:47 | XMS_ITS ---
Author Organization [facility] Address [address] [facility] [place] [address] Care Team Providers Care Geotechnical Laboratory Technician Name Role Phone Boaz Astorga MD Primary Care Provider Yarely Medina Unavailable [phone] Medications Medication SIG (Take, Route, Frequency, Duration) [...] day for 30 days 06/06/2023 Active Nystatin 601242 UNIT/GM 1 application Externally Twice a day [...] Active Encounters Encounter Location Date Provider Diagnosis [facility] [address] [address] 12/02/2024 Yarely Gibbs Plan Of Treatment Next Appt Details Provider Name:Yarely puckett, 04/14/2025 01:30:00 PM, [address] [place] [address], [phone], Progress Notes * Alicia DUONGDOB:1945 (79 yo F)Acc No.[id number]:12/02/2024 Progress Note Patient:?Alicia DUONG Provider:?Yarely Gibbs DPM :1945???Age:79 Y???Sex:Female D ate:12/02/2024 Address:[address] [place], [place] [phone] Pcp:Boaz Astorga MD Subjective: * Chief Complaints: [...] needed Twice a day , Not-Taking/PRN Nystatin 281585 UNIT/GM Cream 1 application Externally Twice a [...] DPM Date:?08/2025 Generated for Mary Ann baca/Suzy/Ventura on:?03/27/2025 10:46 AM EDT History and Physical Notes * HPI (History of Present Illness) Category Sub-Category Detail Notes Category Not es At Risk footcare Pt States Last PCP Visit: Date: 4
== END 2025-03-27 10:06 | disposition home or self-care (01) ==
LOC: HO.MAMMO 10:05
PROVIDERS: PCP Internal Medicine; Visit Provider Internal Medicine
DX: Z12.31 Encounter for screening mammogram for malignant neoplasm of breast (principal)
CPT/HCPCS: 77063; 77067

== ENCOUNTER → 2025-03-27 10:30 | Outpatient (BNV) | payer OTHER, SELFPAY | PROVIDERS: PCP Internal Medicine; Visit Provider Internal Medicine | DX: Z12.31 Encounter for screening mammogram for malignant neoplasm of breast (principal) | CPT/HCPCS: 77063; 77067 ==

== ENCOUNTER 2025-03-31 12:19 | Outpatient (AMB) | payer OTHER, SELFPAY ==
[2025-03-31 12:38] VITALS: BP 130/68; PULSE 77; BMI 26.3
--- NOTE | 2025-03-31 12:38 | MHC.OFFVIS ---
Vital Signs 03/31/25 12:38 Height 5 ft Weight 134 lb 7.712 oz BMI 26.3 BP 130/68 Blood Pressure Location Lt brachial Position Sitting Pulse 77 Pulse Source Pulse Oximeter Intake Visit Reasons: 3m follow up Allergies aspirin [Aspirin] Allergy (Severe, Verified 03/20/25 11:31) MOUTH SWELLING hydrochlorothiazide [Hydrochlorothiazide] Allergy (Intermediate, Verified 03/20/25 11:31) DROP IN BLOOD PRESSURE Penicillins [PENICILLINS] Allergy (Intermediate, Verified 03/20/25:) ITCHING caffeine [Caffeine] Allergy (Mild, Verified 03/20/25 11:31) NERVOUSNESS lisinopril [Lisinopril] Allergy (Mild, Verified 03/20/25 11:31) CHANGES IN BLOOD PRESSURE ranitidine [RANITIDINE] Allergy (Mild, Verified 03/20/25 11:31) HEADACHE amlodipine [AMLODIPINE] Allergy (Unknown, Verified 03/20/25 11:) UNKNOWN amoxicillin Allergy (Unknown, Verified 03/20/25 11:31) itching, severe with rash diclofenac Allergy (Unknown, Verified 03/20/25 11:31) Unknown escitalopram Allergy (Unknown, Verified 03/20/25 11:31) abdominal discomfort, drowsiness esomeprazole [Nexium] Allergy (Unknown, Verified 03/20/25 11:31) Unknown isosorbide [ISOSORBIDE] Allergy (Unknown, Verified 03/20/25 11:31) UNKNOWN lidocaine [Lidoderm] Allergy (Unknown, Verified 03/20/25 11:31) weakness mirtazapine Allergy (Unknown, Verified 03/20/25 11:31) Unknown nystatin Allergy (Unknown, Verified 03/20/25 11:31) rash sertraline [SERTRALINE] Allergy (Unknown, Verified 03/20/25 11:31) UNKNOWN dexlansoprazole [From DEXILANT] Adverse Reaction (Severe, Verified 03/20/25 11:31) AGITATION hydrocortisone [From Cortizone-10] Adverse Reaction (Mild, Verified 03/20/25 11:31) RAISES BLOOD SUGAR topiramate [From TOPAMAX] Adverse Reaction (Unknown, Verified 03/20/25 11:31) AGITATION trajenta Allergy (Severe, Uncoded 02/19/25 12:49) numbness From PLAVIX Allergy (Unknown, Uncoded 02/19/25 12:49) PT UNSURE OF REACTION Medical tape Allergy (Unknown, Uncoded 02/19/25 12:49) Rash Medication List - Last Reconciled 03/31/25 by Juve Alcazar MD acetaminophen (Tylenol Extra Strength) 500 mg PO .TWICE A DAY PRN alprazolam 0.5 mg PO BID PRN blood sugar diagnostic (Medafor Ultra Test strips) USE DIRECTED TO TEST BLOOD SUGAR FOUR TIMES DAILY buspirone 7.5 mg PO DAILY carvedilol 6.25 mg PO BID 90 days cholecalciferol (vitamin D3) 50 mcg PO DAILY clotrimazole-betamethasone 1-0.05 % 1 appl topical BID PRN compr.stocking,knee,long,large As directed [gloves As directed] [incontinent liners As directed] lancets (Medafor Delica Plus Lancet) USE FOUR TIMES DAILY Lantus Solostar U-100 Insulin (insulin glargine) 6 units in the am 2 units in the pm 30 days NS methylcellulose (laxative) (Citrucel) 500 mg PO DAILY multivit with min-folic acid 200 mcg (Adult Multivitamin Gummies) 1 tab PO DAILY pantoprazole 20 mg PO DAILY pen needle, diabetic bid NS propylene glycol 0.6% (Systane Balance) 1 drp ophthalmic (eye) BID PRN rosuvastatin 40 mg PO DAILY 90 days sennosides 17.2 mg (2 x 8.6 mg) PO DAILY HPI Comments Details: Alicia returns for follow-up regarding nonischemic cardiomyopathy as well as hypertension. To recall, she has very labile hypertension, compounded by anxiety. However, over the last couple of years, this is actually been well controlled. No new cardiac specific concerns. She is getting along fine. [facility] Medical History Left bundle branch block Type 2 diabetes mellitus with chronic kidney disease Chronic kidney disease, stage 4 (severe) Type 2 diabetes mellitus Obesity Skin abrasion HARRIET (renal artery stenosis) Nonischemic cardiomyopathy Urinary incontinence GERD (gastroesophageal reflux disease) COVID-19 Pneumonia due to COVID-19 virus Vertigo Obesity (BMI 30-39.9) Depression Anxiety Stasis edema of both lower extremities Cardiomyopathy Pure hypercholesterolemia Hyperkalemia Renal artery stenosis Benign essential hypertension Conjunctival hemorrhage of right eye Surgical History Hx of colonoscopy Hx of myomectomy History of cataract surgery History of lumpectomy of left breast History of cholecystectomy Family History Father CVD (cardiovascular disease) Myocardial infarction Mother Myocardial infarction CVD (cardiovascular disease) Brother Myocardial infarction Family/Other FH: prostate cancer Social History Household Members: None Housing: Apartment Do you presently have visiting nurse or other home services: No Alcohol intake: never Patient Tobacco Use Status: Former Tobacco user Tobacco use type: Cigarette e-Cigarette/Vaping Use: Never Used Second Hand Smoke Exposure: No Advance Directives Date on File: 08/06/21 service: No Current occupational status: disabled Cognitive needs: No Hearing needs: No Vision needs: Yes Review of Systems Const Denies weakness ENT Denies dizziness Card Denies chest pain, Denies chest pain with activity, Denies syncope, Denies rapid heart rate, Denies pedal edema, Denies edema, Denies leg edema, Denies lightheadedness, Denies palpitations, Denies dyspnea, Denies dyspnea on exertion and Denies orthopnea Resp Denies cough, Denies dyspnea and Denies dyspnea on exertion GI Denies hematochezia and Denies change in stool character Musc Denies abnormal gait, Denies muscle cramps, Denies muscle weakness, Denies numbness, Denies radiating pain into limb and Denies tingling Neuro Denies abnormal gait, Denies dizziness, Denies syncope, Denies numbness, Denies tingling and Denies weakness Endo Denies palpitations Physical Exam Vital Signs: Last Vital Signs Pulse 77 03/31/25 12:38 BP 130/68 03/31/25 12:38 BMI result Body Mass Index 26.3 Const General: comfortable and no acute distress Orientation/consciousness: patient oriented x3 HEENT Other: Unremarkable Head: Yes normal to inspection Neck Neck: Yes normal visual inspection Chest Chest palpation & inspection: normal inspection of the chest Resp Auscultation: clear to auscultation bilaterally Cardio Palpation: normal PMI Heart sounds: S1 normal heart sound present, S2 normal heart sound present, no gallops, no murmurs and no rubs GI Palpation (GI): Soft to palpation Back/Spine/Pelvis Other: unremarkable Skin General skin exam: no rashes or lesions noted Neuro General: patient oriented x3 Extrem General: Yes normal to inspection Psych Mental Status: mental status grossly normal Assessment & Plan Assessment & Plan (1) Nonischemic cardiomyopathy: Code(s): I42.8 - Other cardiomyopathies Category: Medical Plan: In the most recent echocardiogram, LVEF is 40-45%. Myocardial perfusion imaging study with normal perfusion. Remains on carvedilol. Has been on losartan in the past but not anymore. Has renal insufficiency. Clinically, no heart failure symptoms or signs. (2) Left bundle branch block: Code(s): I44.7 - Left bundle-branch block, unspecified Category: Medical Plan: Chronic finding. (3) Essential hypertension: Code(s): I10 - Essential (primary) hypertension Category: Medical Plan: Stable. No recent issues. Coding Level of Care Code Est Pt Level 4 (48584) Complex EM visit Add On G2211 Diagnoses Nonischemic cardiomyopathy I42.8 Left bundle branch block I44.7 Essential hypertension I10
--- OUTSIDE RECORDS SUMMARY | 2025-03-31 14:32 | XMS_ITS ---
Author Organization [facility] Address [address] [place] [address] Care Team Providers Care Workcell Operator Name Role Phone Boaz Astorga MD Primary Care Provider Yarely Medina Unavailable [phone] Medications Medication SIG (Take, Route, Frequency, Duration) [...] day for 30 days 06/06/2023 Active Nystatin 540217 UNIT/GM 1 application Externally Twice a day [...] Active Encounters Encounter Location Date Provider Diagnosis [facility] [address] [address] 12/02/2024 Yarely Gibbs Plan Of Treatment Next Appt Details Provider Name:Yarely puckett, 04/14/2025 01:30:00 PM, [address] [place] [address], [phone], Progress Notes * Alicia DUONGDOB:1945 (79 yo F)Acc No.[id number]:12/02/2024 Progress Note Patient:?Alicia DUONG Provider:?Yarely Gibbs DPM :1945???Age:79 Y???Sex:Female D ate:12/02/2024 Address:[address] [place], [place] [id number] Pcp:Boaz Astorga MD Subjective: * Chief Complaints: [...] needed Twice a day , Not-Taking/PRN Nystatin 493084 UNIT/GM Cream 1 application Externally Twice a [...] DPM Date:?08/2025 Generated for Mary Ann baca/Suzy/Ventura on:?03/31/2025 02:31 PM EDT History and Physical Notes * HPI (History of Present Illness) Category Sub-Category Detail Notes Category Not es At Risk footcare Pt States Last PCP Visit: Date: 4
== END 2025-03-31 13:04 | disposition home or self-care (01) ==
LOC: HO.HCS 12:20
PROVIDERS: PCP Internal Medicine; Visit Provider Internal Medicine
DX: I42.8 Other cardiomyopathies (principal); I44.7 Left bundle-branch block, unspecified; I10 Essential (primary) hypertension
CPT/HCPCS: 99214; G2211

== ENCOUNTER → 2025-03-31 12:19 | Outpatient (BNVA) | payer OTHER, SELFPAY | PROVIDERS: PCP Internal Medicine; Visit Provider Internal Medicine | DX: I42.8 Other cardiomyopathies (principal); I10 Essential (primary) hypertension; I44.7 Left bundle-branch block, unspecified | CPT/HCPCS: 99212 ==

== ENCOUNTER 2025-04-03 12:54 | Outpatient (REF) | payer OTHER, SELFPAY ==
--- OUTSIDE RECORDS SUMMARY | 2025-04-03 13:19 | XMS_ITS ---
Author Organization [facility] Address [address] [place] [address] Care Team Providers Care Manufacturing Machine Operator Name Role Phone Boaz Astorga MD Primary Care Provider Yarely Medina Unavailable [phone] Medications Medication SIG (Take, Route, Frequency, Duration) [...] day for 30 days 06/06/2023 Active Nystatin 800763 UNIT/GM 1 application Externally Twice a day [...] Active Encounters Encounter Location Date Provider Diagnosis [facility] [address] [address] 12/02/2024 Yarely Gibbs Plan Of Treatment Next Appt Details Provider Name:Yarely puckett, 04/14/2025 01:30:00 PM, [address] [place] [address], [id number], Progress Notes * Alicia DUONGDOB:1945 (79 yo F)Acc No.[id number]:12/02/2024 Progress Note Patient:?Alicia DUONG Provider:?Yarely Gibbs DPM :1945???Age:79 Y???Sex:Female D ate:12/02/2024 Address:[address] [place], [place] [id number] Pcp:Boaz Astorga MD Subjective: * Chief Complaints: [...] needed Twice a day , Not-Taking/PRN Nystatin 139012 UNIT/GM Cream 1 application Externally Twice a [...] DPM Date:?08/2025 Generated for Mary Ann baca/Suzy/Ventura on:?04/03/2025 01:19 PM EDT History and Physical Notes * HPI (History of Present Illness) Category Sub-Category Detail Notes Category Not es At Risk footcare Pt States Last PCP Visit: Date: 4
[2025-04-03 14:43] LABS: Anion Gap 10 (12-20); Blood Urea Nitrogen 48 mg/dL (9-16); Calcium 9.4 mg/dL (8.4-10.2); Carbon Dioxide 24 mmol/L (22-29); Chloride 105 mmol/L (96-108); Estimated Glomerular Filt Rate 17; Potassium 4.4 mmol/L (3.3-5.1); Sodium 135 mmol/L (135-145)
== END 2025-04-03 12:55 | disposition home or self-care (01) ==
LOC: HO.LAB 12:54
PROVIDERS: PCP Internal Medicine; Visit Provider Internal Medicine Nephrology
DX: N25.81 Secondary hyperparathyroidism of renal origin (principal); I15.0 Renovascular hypertension; E11.22 Type 2 diabetes mellitus with diabetic chronic kidney disease; N18.4 Chronic kidney disease, stage 4 (severe)
CPT/HCPCS: 36415; 80051; 82310; 82565; 84520

== ENCOUNTER 2025-04-08 14:56 | Outpatient (AMB) | payer OTHER, SELFPAY ==
--- OUTSIDE RECORDS SUMMARY | 2024-12-02 10:00 | XMS_ITS ---
Author Organization [facility] Address [address] [place] [address] Care Team Providers Care Oil Furnace Installer Name Role Phone Boaz Astorga MD Primary Care Provider Yarely Medina Unavailable [phone] Medications Medication SIG (Take, Route, Frequency, Duration) Notes Start Date End Date Status Ciclopirox Olamine 0.77 % 1 application to affected area Externally to feet Twice a day for 30 days Not-Taki ng Ammonium Lactate 12 % 1 application Externally Twice a day to both feet for 30 days Active Mupirocin 2 % 1 application Externally Twice a day as neede to any open sores for 30 days 04/04/2022 Active Ammonium Lactate 10 % 1 application Externally Twice a day to both feet for 30 days Active Ketoconazole 2 % 1 application Externally Twice a day for 30 days 06/06/2023 Active Nystatin 275050 UNIT/GM 1 application Externally Twice a day Not-Takin g Mupirocin 2 % 1 application Externally as needed Twice a day for 7 days Not-Takin g Bactrim DS 800-160 MG 1 tablet Orally ev carlos 12 hrs for 5 days 04/04/2022 Not-Taking Tylenol 500 1 tablet as needed Orally Not-Taking Senna 8.6 MG Orally Once a day Not-Taking Januvia 100 MG 1 tablet Orally Once a day for 30 day(s) Not-Taking Furosemide 20 MG 1 tablet Orally Once a day Not-Taking Atorvastatin Calcium 80 MG 1 tablet Orally Once a day for 30 day(s) Not-Taking Ciclopirox Olamine 0.77 % 1 application to affected area Externally to feet Twice a day for 30 days Not-Taki ng Losartan Potassium 50 MG 1 tablet Orally Once a day Not-Taking Trulicity 0.75 MG/0.5ML as directed Subcutaneous Not-Taking Vitamin D Active Spironolactone Activ e Rosuvastatin Calcium 40 MG TAKE 1 TABLET BY MOUTH DAILY Oral for 90 Days Active Pantoprazole Sodium 40 MG 1 tablet Orall y Once a day for 30 day(s) Active metFORMIN HCl 500 MG 1 tablet with a modesto l Orally Once a day for 30 days Active Glimepiride Active Eye Drops [...] Active Encounters Encounter Location Date Provider Diagnosis [facility] [address] [address] 12/02/2024 Yarely Gibbs Plan Of Treatment Next Appt Details Provider Name:Yarely puckett, 04/14/2025 01:30:00 PM, [address] [place] [address], [phone], Progress Notes * Alicia DUONGDOB:1945 (79 yo F)Acc No.[id number]:12/02/2024 Progress Note Patient: Alicia ROQUE Provider: Jarad Gibbs DPM :1945 A ge:79 Y S ex:Female Date:12/02/2024 Address:[address] [place], [place] [phone] Pcp:Boaz Astorga MD Subjective: * Chief Complaints: [...] needed Twice a day , Not-Taking/PRN Nystatin 977346 UNIT/GM Cream 1 application Externally Twice a [...] Date: 0 12/02/2024 Generated for Mary Ann baca/Suyz/Ventura on: 0 04/08/2025 05:14 PM EDT History and Physical Notes * HPI (History of Present Illness) Category Sub-Category Detail Notes Category Not es At Risk footcare Pt States Last PCP Visit: Date:
--- NOTE | 2025-04-08 15:22 | HO.NEPHOV ---
Vital Signs 04/08/25 15:27 Height 5 ft Weight 138 lb BMI 26.9 BP 150/70 H Blood Pressure Location Rt brachial Position Sitting Pulse 60 Pulse Source Pulse Oximeter Pulse Oximetry (%) 99 Oxygen Delivery Method Room Air Intake Visit Reasons: 2 months-Conf Director Wholesale Required: No Accompanied by: Self / Same As Patient Allergies aspirin (Aspirin) Allergy (Severe, Verified 04/08/25 15:27) MOUTH SWELLING hydrochlorothiazide (Hydrochlorothiazide) Allergy (Intermediate, Verified 04/08/25 15:27) DROP IN BLOOD PRESSURE Penicillins (PENICILLINS) Allergy (Intermediate, Verified 04/08/25 15:27) ITCHING caffeine (Caffeine) Allergy (Mild, Verified 04/08/25 15:27) NERVOUSNESS lisinopril (Lisinopril) Allergy (Mild, Verified 04/08/25 15:27) CHANGES IN BLOOD PRESSURE ranitidine (RANITIDINE) Allergy (Mild, Verified 04/08/25 15:27) HEADACHE amlodipine (AMLODIPINE) Allergy (Unknown, Verified 04/08/25 15:27) UNKNOWN amoxicillin Allergy (Unknown, Verified 04/08/25 15:27) itching, severe with rash diclofenac Allergy (Unknown, Verified 04/08/25 15:27) Unknown escitalopram Allergy (Unknown, Verified 04/08/25 15:27) abdominal discomfort, drowsiness esomeprazole (Nexium) Allergy (Unknown, Verified 04/08/25 15:27) Unknown isosorbide (ISOSORBIDE) Allergy (Unknown, Verified 04/08/25 15:27) UNKNOWN lidocaine (Lidoderm) Allergy (Unknown, Verified 04/08/25 15:27) weakness mirtazapine Allergy (Unknown, Verified 04/08/25 15:27) Unknown nystatin Allergy (Unknown, Verified 04/08/25 15:27) rash sertraline (SERTRALINE) Allergy (Unknown, Verified 04/08/25 15:27) UNKNOWN dexlansoprazole (From DEXILANT) Adverse Reaction (Severe, Verified 04/08/25 15:27) AGITATION hydrocortisone (From Cortizone-10) Adverse Reaction (Mild, Verified 04/08/25 15:27) RAISES BLOOD SUGAR topiramate (From TOPAMAX) Adverse Reaction (Unknown, Verified 04/08/25 15:27) AGITATION trajenta Allergy (Severe, Uncoded 02/19/25 12:49) numbness From PLAVIX Allergy (Unknown, Uncoded 02/19/25 12:49) PT UNSURE OF REACTION Medical tape Allergy (Unknown, Uncoded 02/19/25 12:49) Rash HPI Comments Details: Alicia was seen in follow for her advanced CKD. She is known to have DM for a long time. She had a questionable allergy reaction to it and was seen in ER where her DPP4 was D/John. Her BS is fluctuant. She also has hypertension. She does not take NSAID's regularly. She denies any nausea, vomiting, diarrhea, SOB, edema, PND, orthopnea, hematuria, hearing deficits. She claims to be compliant with medications. She is not on SGLT2i. She has no sinusitis, epistaxis, photosensitivity, bone pain, sore throat , hemoptysis, skin lesions or recent antibiotic intake. Her BP at home has been at goal. [facility] Medical History Left bundle branch block Type 2 diabetes mellitus with chronic kidney disease Chronic kidney disease, stage 4 (severe) Type 2 diabetes mellitus Obesity Skin abrasion HARRIET (renal artery stenosis) Nonischemic cardiomyopathy Urinary incontinence GERD (gastroesophageal reflux disease) COVID-19 Pneumonia due to COVID-19 virus Vertigo Obesity (BMI 30-39.9) Depression Anxiety Stasis edema of both lower extremities Cardiomyopathy Pure hypercholesterolemia Hyperkalemia Renal artery stenosis Benign essential hypertension Conjunctival hemorrhage of right eye Surgical History Hx of colonoscopy Hx of myomectomy History of cataract surgery History of lumpectomy of left breast History of cholecystectomy Family History Father CVD (cardiovascular disease) Myocardial infarction Mother Myocardial infarction CVD (cardiovascular disease) Brother Myocardial infarction Family/Other FH: prostate cancer Social History Household Members: None Housing: Apartment Do you presently have visiting nurse or other home services: No Alcohol intake: never Patient Tobacco Use Status: Former Tobacco user Tobacco use type: Cigarette e-Cigarette/Vaping Use: Never Used Second Hand Smoke Exposure: No Advance Directives Date on File: 08/06/21 service: No Current occupational status: disabled Cognitive needs: No Hearing needs: No Vision needs: Yes Review of Systems Const All systems reviewed & are unremarkable except as noted in HPI and below Physical Exam Vital Signs: Last Vital Signs Pulse 60 04/08/25 15:27 BP 150/70 H 04/08/25 15:27 Pulse Ox 99 04/08/25 15:27 Oxygen Delivery Method Room Air 04/08/25 15:27 BMI result Body Mass Index 26.9 Const General: comfortable and no acute distress Orientation/consciousness: patient oriented x3 HEENT Head: Yes normocephalic Mouth: Normal oral and palatal mucosa present Eyes EOM: EOMs intact bilaterally Neck Neck: Yes supple Resp Auscultation: clear to auscultation bilaterally Cardio Jugular venous distension: no JVD Rate: regular rate GI Palpation (GI): Soft to palpation Auscultation: normal bowel sounds General: Yes no CVA tenderness Back/Spine/Pelvis Back: no CVA tenderness Skin General skin exam: no rashes or lesions noted Neuro General: patient oriented x3 and moves all extremities Extrem General: Yes no pedal edema Results Reviewed Nephrology Results: Hgb, (12.0-16.0) 11.1 g/dl L 03/06/25 WBC, (4.8-10.8) 5.1 X10*3/uL 03/06/25 Plt Count, (160-400) 202 X10*3/uL 03/06/25 Sodium, (135-145) 135 mmol/L 04/03/25 Potassium, (3.3-5.1) 4.4 mmol/L 04/03/25 Chloride, (96-108) 105 mmol/L 04/03/25 Carbon Dioxide, (22-29) 24 mmol/L 04/03/25 BUN, (9-16) 48 mg/dL H 04/03/25 Creatinine, (0.5-1.4) 2.74 mg/dL H 04/03/25 Calcium, (8.4-10.2) 9.4 mg/dL 04/03/25 Phosphorus, (2.7-4.5) 3.3 mg/dL 03/06/25 PTH Intact, (8.7-77.1) 202.0 pg/mL H 05/16/25 Renal US 06/20/24 Assessment & Plan Assessment & Plan (1) Hypertension: Code(s): I10 - Essential (primary) hypertension Category: Medical Qualifiers: Hypertension type: renovascular hypertension Qualified Code(s): I15.0 - Renovascular hypertension (2) Secondary hyperparathyroidism (of renal origin): Code(s): N25.81 - Secondary hyperparathyroidism of renal origin Category: Medical (3) Chronic kidney disease, stage 4 (severe): Code(s): N18.4 - Chronic kidney disease, stage 4 (severe) Category: Medical Plan BP at goal at home. 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 Based on published guidelines in J Am Abdoulaye Radiol 2013; 10(10):789-794 and J Vasc Surg. 2018; 67:2-77, the recommendation for an abdominal aorta with diameter 2.6-2.9 cm is follow-up every 5 years if the aorta that meets the criteria for AAA (>1.5 x proximal normal segment; no f/u if < 1.5 x proximal normal segment; no f/u for aorta < 2.6 cm) Has 24 hour urine for cr cl-- stable Aware about renal replacement if her renal func declines C/W Vitamin D 2000 U daily Will need activated Vitamin D soon Follow up labs ordered; F/U in 2 months Orders: Orders Creatinine 2 Months I15.0 - Renovascular hypertension, N18.4 - Chronic kidney disease, stage 4 (severe), N25.81 - Secondary hyperparathyroidism of renal origin Blood Urea Nitrogen 2 Months I15.0 - Renovascular hypertension, N18.4 - Chronic kidney disease, stage 4 (severe), N25.81 - Secondary hyperparathyroidism of renal origin Electrolytes 2 Months I15.0 - Renovascular hypertension, N18.4 - Chronic kidney disease, stage 4 (severe), N25.81 - Secondary hyperparathyroidism of renal origin Calcium 2 Months I15.0 - Renovascular hypertension, N18.4 - Chronic kidney disease, stage 4 (severe), N25.81 - Secondary hyperparathyroidism of renal origin Parathyroid Hormone Intact 2 Months I15.0 - Renovascular hypertension, N18.4 - Chronic kidney disease, stage 4 (severe), N25.81 - Secondary hyperparathyroidism of renal origin Vitamin D 25-OH Total 2 Months I15.0 - Renovascular hypertension, N18.4 - Chronic kidney disease, stage 4 (severe), N25.81 - Secondary hyperparathyroidism of renal origin Coding Level of Care Code Est Pt Level 4 (03816) Diagnoses Renovascular hypertension I15.0 Hypertension type: renovascular hypertension Secondary hyperparathyroidism (of renal origin) N25.81 Chronic kidney disease, stage 4 (severe) N18.4
[2025-04-08 15:27] VITALS: BP 150/70; PULSE 60; O2SAT 99; BMI 26.9
== END 2025-04-08 15:59 | disposition home or self-care (01) ==
LOC: HO.HKA 14:56
PROVIDERS: PCP Internal Medicine; Visit Provider Internal Medicine Nephrology
DX: I12.9 Hypertensive chronic kidney disease with stage 1 through stage 4 chronic kidney disease, or unspecified chronic kidney disease (principal); N25.81 Secondary hyperparathyroidism of renal origin; N18.4 Chronic kidney disease, stage 4 (severe)
CPT/HCPCS: 99214

== ENCOUNTER → 2025-04-08 14:56 | Outpatient (BNVA) | payer OTHER, SELFPAY | PROVIDERS: PCP Internal Medicine; Visit Provider Internal Medicine Nephrology | DX: I15.0 Renovascular hypertension (principal); N25.81 Secondary hyperparathyroidism of renal origin; N18.4 Chronic kidney disease, stage 4 (severe) | CPT/HCPCS: 99212 ==

== ENCOUNTER 2025-04-22 11:22 | Outpatient (AMB) | payer OTHER, SELFPAY ==
--- NOTE | 2025-04-22 07:39 | A.OFFVIS_ITS ---
Vital Signs 04/22/25 11:24 Height 5 ft Weight 136 lb 10.986 oz BMI 26.7 BP 116/78 Blood Pressure Location Rt brachial Position Sitting Pulse 60 Pulse Source Pulse Oximeter Pulse Oximetry (%) 100 Oxygen Delivery Method Room Air Intake Visit Reasons: T2DM Intake Note: Patient presents today for a follow-up on Type 2 Diabetes Mellitus. Last Diabetic eye exam was on: 01/2024, patient has an appointment coming soon.? Last Podiatry exam was on: 08/2024 Most recent HbA1c: 8.9%, 04/22/2025 Random Glucose- 200 mg/dL, Today Caul Puller Required: No Accompanied by: ASSEMBLY LINE UPHOLSTERER Allergies aspirin (Aspirin) Allergy (Severe, Verified 04/22/25 11:25) MOUTH SWELLING hydrochlorothiazide (Hydrochlorothiazide) Allergy (Intermediate, Verified 04/22/25 11:25) DROP IN BLOOD PRESSURE Penicillins (PENICILLINS) Allergy (Intermediate, Verified 04/22/25 11:25) ITCHING caffeine (Caffeine) Allergy (Mild, Verified 04/22/25 11:25) NERVOUSNESS lisinopril (Lisinopril) Allergy (Mild, Verified 04/22/25 11:25) CHANGES IN BLOOD PRESSURE ranitidine (RANITIDINE) Allergy (Mild, Verified 04/22/25 11:25) HEADACHE amlodipine (AMLODIPINE) Allergy (Unknown, Verified 04/22/25 11:25) UNKNOWN amoxicillin Allergy (Unknown, Verified 04/22/25 11:25) itching, severe with rash diclofenac Allergy (Unknown, Verified 04/22/25 11:25) Unknown escitalopram Allergy (Unknown, Verified 04/22/25 11:25) abdominal discomfort, drowsiness esomeprazole (Nexium) Allergy (Unknown, Verified 04/22/25 11:25) Unknown isosorbide (ISOSORBIDE) Allergy (Unknown, Verified 04/22/25 11:25) UNKNOWN lidocaine (Lidoderm) Allergy (Unknown, Verified 04/22/25 11:25) weakness mirtazapine Allergy (Unknown, Verified 04/22/25 11:25) Unknown nystatin Allergy (Unknown, Verified 04/22/25 11:25) rash sertraline (SERTRALINE) Allergy (Unknown, Verified 04/22/25 11:25) UNKNOWN dexlansoprazole (From DEXILANT) Adverse Reaction (Severe, Verified 04/22/25 11:25) AGITATION hydrocortisone (From Cortizone-10) Adverse Reaction (Mild, Verified 04/22/25 11:25) RAISES BLOOD SUGAR semaglutide (From Ozempic) Adverse Reaction (Mild, Verified 04/22/25 11:25) gerd topiramate (From TOPAMAX) Adverse Reaction (Unknown, Verified 04/22/25 11:25) AGITATION trajenta Allergy (Severe, Uncoded 04/22/25 11:25) numbness From PLAVIX Allergy (Unknown, Uncoded 04/22/25 11:25) PT UNSURE OF REACTION Medical tape Allergy (Unknown, Uncoded 04/22/25 11:25) Rash HPI Comments Details: [age] YO female who is seen in f/u for T2DM at the request of PCP. She was seen in consult 12/19/24 at which time Ozempic was stopped because she was experiencing GERD symptoms and felt she was losing too much weight. Since then the GERD is better and her weight loss has stabilized. Since that time she has been started on low-dose insulin. 04/22/25 8.9%, and 8.4% 01/29/25. in the office. HgbA1c 11/05/24 7.9 %, 12/09/2019 7.5% Unfortunately she has had side effects to multiple oral agents. See below Initially diagnosed with T2DM: had gestational diabetes developed in her 50's. tradjenta: felt sick on this Was initially started on treatment with:metformin januvia had weight gain Trulicity: not effective had side effect Gi symptoms, weakness Ozempic was stopped secondary to weight loss and gerd Current regimen:lantus 6 units am 2 units pm Checks glucose 1-2 tmes per day Morning readings are between 92 and 134, 1 readings higher at 02:29 Mid day readings are between 130 and a maximum of 200 however on most days less than 140, readings at HS are 234-295 She reports she had 2 low glucose readings in the late evening for which she felt symptomatic 1 of which times she called a neighbor to assist her and she treated with glucose tablets. She is fearful of overnight lows. Has eyes checked yearly, last eye exam 01/2024 denies retinopathy. Followed by Dr. Hanna Denies neuropathy, no numbness, tinging or pain, has occasional cramping in legs. last foot exam today, sees podiatry folllowed every 2-3 months was just seen last week Has nephropathy, not on mar-arb (allergy). 01/02/25 eGFR 20 She is followed by Dr. Madrigal Has HLD, on statin Last LDL 68 as measured on 10/3024 Has cardiomyopathy followed regularly by cardiology recent echo 12/2024 ejection fraction 40-45% stress test has been ordered by Cardiology She is followed by psychiatry and a clinical psychologist for depression on a regular basis. Diet: balanced recently seen by [facility] Weight: now stable No recent CDE, she declines as she has recently seen RD [facility] Medical History Left bundle branch block Type 2 diabetes mellitus with chronic kidney disease Chronic kidney disease, stage 4 (severe) Type 2 diabetes mellitus Obesity Skin abrasion HARRIET (renal artery stenosis) Nonischemic cardiomyopathy Urinary incontinence GERD (gastroesophageal reflux disease) COVID-19 Pneumonia due to COVID-19 virus Vertigo Obesity (BMI 30-39.9) Depression Anxiety Stasis edema of both lower extremities Cardiomyopathy Pure hypercholesterolemia Hyperkalemia Renal artery stenosis Benign essential hypertension Conjunctival hemorrhage of right eye Surgical History Hx of colonoscopy Hx of myomectomy History of cataract surgery History of lumpectomy of left breast History of cholecystectomy Family History Father CVD (cardiovascular disease) Myocardial infarction Mother Myocardial infarction CVD (cardiovascular disease) Brother Myocardial infarction Family/Other FH: prostate cancer Social History Household Members: None Housing: Apartment Do you presently have visiting nurse or other home services: No Alcohol intake: never Patient Tobacco Use Status: Former Tobacco user Tobacco use type: Cigarette e-Cigarette/Vaping Use: Never Used Second Hand Smoke Exposure: No Advance Directives Date on File: 08/06/21 service: No Current occupational status: disabled Cognitive needs: No Hearing needs: No Vision needs: Yes Physical Exam Vital Signs: Last Vital Signs Pulse 60 04/22/25 11:24 BP 116/78 04/22/25 11:24 Pulse Ox 100 04/22/25 11:24 Oxygen Delivery Method Room Air 04/22/25 11:24 BMI result Body Mass Index 26.7 Const Other: Absence of Cushingoid features. Absence of acromegalic features. Neck exam reveals nl size thyroid about 15 gms. No thyroid nodules palpable. Heart S1 S2, Reg R/R. No M/R G. Skin exam reveals absence of vitiligo or acanthosis nigricans. No edema Visual exam of foot performed. No ulcerations or open lesions. No inter digit maceration or fissuring. No onychomycosis, no callouses. Sensation intact to monofilament exam. Vibratory sensation is normal with 128 Hz tuning fork.pulses positive Results AMB Hemoglobin A1c AMB Hemoglobin A1c 8.9 % Last Edit by SCOUT Swenson on 04/22/25 11:46 Results Reviewed Results Reviewed: Laboratory Last Values Glucose (Clinic) 200 mg/dL (60-115) H 04/22/25 11:32 Hgb A1c (Clinic) 8.9 % (4.0-6.0) H 04/22/25 11:44 Assessment & Plan Assessment & Plan (1) Type 2 diabetes mellitus: Code(s): E11.9 - Type 2 diabetes mellitus without complications Category: Medical Qualifiers: 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 truck terminal manager insulin use: without truck terminal manager use 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 complication status: with kidney complications 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 complication detail: with chronic kidney disease Chronic kidney disease stage: stage 4 (severe) Qualified Code(s): E11.22 - Type 2 diabetes mellitus with diabetic chronic kidney disease; N18.4 - Chronic kidney disease, stage 4 (severe) Plan: This is an 79-year-old type 2 diabetic who has been on multiple oral agents with side effects and more recently had been taken off Ozempic which was working quite well however she had GERD and significant weight loss. She has tried other GLP 1 agonist as well. She is fearful of overnight lows and I am recommending that she reduce her insulin to Lantus 6 units in the morning and stopped the evening dose. Given her age and comorbidities her A1c target is more closer to an 8-8.5%. The patient had an opportunity to ask questions regarding treatment plan. The patient expressed understanding and agreement with the above treatment plan. The patient is aware they should contact our office by phone for worsening glucose readings or for any low blood sugars which may warrant a change in diabetes medication. Compliance is encouraged with medications and any followup testing/consults which may have been ordered. Orders: Orders AMB Hemoglobin A1c Today E11.22 - Type 2 diabetes mellitus with diabetic chronic kidney disease, N18.4 - Chronic kidney disease, stage 4 (severe) Medications: Changed From blood sugar diagnostic (OneTouch Ultra Test strips) USE DIRECTED TO TEST BLOOD SUGAR FOUR TIMES DAILY 100 strips 12RF E11.9 - Type 2 diabetes mellitus without complications To blood sugar diagnostic (OneTouch Ultra Test strips) USE DIRECTED TO TEST BLOOD SUGAR three TIMES DAILY 100 strips 12RF E11.9 - Type 2 diabetes mellitus without complications From Lantus Solostar U-100 Insulin (insulin glargine) 6 units in the am 2 units in the pm 30 days 6 mL 6RF NS To Lantus Solostar U-100 Insulin (insulin glargine) subcutaneously every morning; 6 units 6 mL 6RF 30 days NS Patient Instructions: Take 15 carb carbohydrate grams to treat a low sugar (3-4 glucose tablets, half a glass of juice or 15 carbohydrate grams of soft candy such as gummie snacks). Recheck your sugar in 15 minutes and re-treat again with 15 carbohydrate grams if low or still with symptoms. Do not drive a car or operate machinery if you do not know what your blood sugar is, if it is low or in excess of 300. Check your feet daily looking for any signs of infection, drainage, redness, ulceration and seek medical attention if this occurs. Break in shoes gradually and do not wear open-toed shoes or walk stocking footed or barefooted. Coding Level of Care Code Est Pt Level 4 (17625) Complex EM visit Add On G2211 Diagnoses Type 2 diabetes mellitus with stage 4 chronic kidney disease, without long-term current use of insulin E11.22; N18.4 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 senior living insulin use: without truck terminal manager use 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 complication status: with kidney complications 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 complication detail: with chronic kidney disease Chronic kidney disease stage: stage 4 (severe)
[2025-04-22 11:24] VITALS: BP 116/78; PULSE 60; O2SAT 100; BMI 26.7
[2025-04-22 11:35] LABS: Glucose, Whole Blood 200 mg/dL (60-115)
--- OUTSIDE RECORDS SUMMARY | 2025-04-22 12:09 | XMS_ITS | Clinical Summary ---
Author Organization [facility] Address [address] [place] [address] Phone Care Team Providers Care Academic Assistant Name Role Phone Boaz Astorga MD Primary Care Provider [phone] Allergies Active Allergy Reactions Criticality Noted Date [...] patient's age to complete this topic Insurance [place] [facility] ([id number]) [place] [facility] ([id number]) Care Teams Academic Assistant Relationship Specialty Start Date End Date Boaz Astorga MD [address] [place] [address] PCP - General 11/01/20
--- OUTSIDE RECORDS SUMMARY | 2025-04-22 12:09 | XMS_ITS | Patient Health Record ---
[facility] Address [address] [place] [address] Care Team Providers Care Woodworking Machine Operator Name Role Phone Robel Astorga MDh Primary Care Provider Yarely Medina Unavailable [phone] Allergies Allergen (clinical drug ingredient) Drug/Non Drug [...] Range Notes HEMOGLOBIN A1C (GLYCOHEMOGLO BIN) Reviewed date:04/14/2025 01:31:45 PM Interpretation: Performing Lab: Notes/Report: HEMOGLOBIN A1C % (HH) 7.2 Reason For Referral Diagnosis 1 Type 2 [...] Rizwan Referred [facility] Referred Provider Yarely Gibbs Referred Address [address] [place], [place],[address], Referred Provider Specialty Podiatry Referral Priority Routine Medications Medication SIG (Take, Route, Frequency, Duration) Notes Start Date End Date Status Lantus Active Trulicity 0.75 MG/0.5ML as directed Subcutaneous Not-Taking Tradjenta 5 MG 1 tablet Orally Once a day Active Ciclopirox Olamine 0.77 % 1 application to affected area Externally to feet Twice a day; Duration: 30 days Not-Taking ALPRAZolam 0.25 MG 1 tablet Orally Twic e a day PRN Active busPIRone HCl 7.5 MG 1 tablet Orally Twi ce a day Active Ketoconazole 2 % 1 application Externally Twice a day; Duration: 30 days 06/06/2023 Active Ammonium Lactate 10 % 1 application Externally Twice a day to both feet; Duration: 30 days Active Mupirocin 2 % 1 application Externally Twice a day as neede to any open sores; Duration: 30 days 04/04/2022 Active Ammonium Lactate 12 % 1 application Externally Twice a day to both feet; Duration: 30 days Active Extra Depth Orthopedic Shoes, (1) Pair With (3) Pair Custom Heat Molded Multidensity Innersoles Dx: NIDDM/PVD(E11.51), Hammertoe Foot Deformity(M20.41,M20.42 ), Preulcerative Skin Lesion(s)(L85.1) Wear Daily; Patient prefers sandals or Sophia-Liliana style shoes; Duration: 365 days 01/21/2025 Active Ciclopirox Olamine 0.77 % 1 application to affected area Externally Twice a day to effected areas on feet; Duration: 30 days 01/21/2025 Active Ozempic Not-Taking metFORMIN HCl 500 MG 1 tablet with a modesto l Orally Once a day; Duration: 30 days Not-Taking Atorvastatin Calcium 80 MG 1 tablet Orally Once a day; Duration: 30 day(s) Not-Taking Rosuvastatin Calcium 40 MG TAKE 1 TABLET BY MOUTH DAILY Oral; Duration: 90 Days Active Ciclopirox Olamine 0.77 % 1 application to affected area Externally to feet Twice a day; Duration: 30 days Not-Taking Spironolactone Activ e Vitamin D Active Furosemide 20 MG 1 tablet Orally Once a day Not-Taking Carvedilol 6.25 MG 1 tablet with food Orally Twice a day Active Januvia 100 MG 1 tablet Orally Once a day; Duration: 30 day(s) Not-Taking Clotrimazole-Betamethason e 1-0.05 % 1 application Externally Twice a day Active Losartan Potassium 50 MG 1 tablet Orally Once a day Not-Taking Eye Drops Active Senna 8.6 MG Orally Once a day Not-Taking Glimepiride Active Tylenol 500 1 tablet as needed Orally Not-Taking Multivitamin Active Bactrim DS 800-160 MG 1 tablet Orally ev carlos 12 hrs; Duration: 5 days 04/04/2022 Not-Taking Ointment Base Active Mupirocin 2 % 1 application Externally as needed Twice a day; Duration: 7 days Not-Taking Pantoprazole Sodium 40 MG 1 tablet Orall y Once a day; Duration: 30 day(s) Active Nystatin 701317 UNIT/GM 1 application Externally Twice a day Not-Takin g Immunizations Vaccine Route Administration Date Status Comme nts COVID-19 Pfizer BioNTech Vaccine Unknown 09/08/2021 Administered 1st 01/06/2021 2nd 01/27/2021 Influenza Unknown 08/22/2022 Administered Influenza Unknown 07/25/2023 Administered Influenza Unknown 06/22/2024 Administered Social History Tobacco Use: Social History [...] Problem Acquired hammer toe of right foot (75381846590871 05) Other hammer toe(s) (acquired), right foot (M20.41) Active confirmed Problem Type 2 diabetes mellitus with peripheral angiopathy (395424582) Type 2 diabetes mellitus with diabetic peripheral angiopathy without gangrene (E11.51) Active confirmed Problem Acquired hammer toe of left foot (53890587178686 03) Other hammer toe(s) (acquired), left foot (M20.42) Active confirmed Vital Signs Blood pressure diastolic 71 mm Hg 04/14/2025 Height 5 ft in 04/14/2025 Blood pressure systolic 146 mm Hg 04/14/2025 Weight 136 lbs 04/14/2025 BMI 26.56 kg/m2 04/14/2025 Encounters Encounter Location Date Provider Diagnosis [address] [address] 07/09/2024 Yarely Perica Tinea pedis of both feet B35.3 ; Type 2 diabetes mellitus with diabetic peripheral angiopathy without gangrene E11.51 ; Tinea unguium B35.1 ; Pain in left toe(s) M79.675 and Pain in right toe(s) M79.[address] [facility] [address] 09/17/2024 Yarely Perica Tinea pedis of both feet B35.3 ; Type 2 diabetes mellitus with diabetic peripheral angiopathy without gangrene E11.51 ; Tinea unguium B35.1 ; Pain in left toe(s) M79.675 ; Pain in right toe(s) M79.674 and Xerosis cutis L85.[address] [address] 01/21/2025 Yarely Perica Tinea pedis of both feet B35.3 ; Other hammer toe(s) (acquired), right foot M20.41 ; Type 2 diabetes mellitus with diabetic peripheral angiopathy without gangrene E11.51 ; Tinea unguium B35.1 ; Pain in left toe(s) M79.675 ; Pain in right toe(s) M79.674 ; Xerosis cutis L85.3 and Other hammer toe(s) (acquired), left foot M20.42 [facility] [address] [address] 04/14/2025 Yarely Gibbs Type 2 diabetes mellitus with diabetic peripheral angiopathy without gangrene E11.51 ; Tinea unguium B35.1 ; Pain in left toe(s) M79.675 and Pain in right toe(s) M79.674 [facility] [address] 05/26/2024 Yarely Gibbs [facility] [address] [address] 05/27/2024 Yarely Perica [facility] [address] [address] 07/02/2024 Yarely Perica [facility] [address] 12/02/2024 Yarely Perica [facility] [address] 01/21/2025 Yarely Gibbs Assessments Encounter Date Diagnosis [...] pedis of both feet (ICD-10 - B35.3) 04/14/2025 Type 2 diabetes mellitus with diabetic peripheral angiopathy without gangrene (ICD-10 - E11.51) 04/14/2025 Tinea unguium (ICD-10 - B35.1) 04/14/2025 Pain in left toe(s) (ICD-10 - M79.675) 09/17/2024 Tinea unguium (ICD-10 - B35.1) 01/21/2025 Type 2 diabetes mellitus with diabetic peripheral angiopathy without gangrene (ICD-10 - E11.51) 07/09/2024 Type 2 diabetes mellitus with diabetic peripheral angiopathy without gangrene (ICD-10 - E11.51) 07/09/2024 Tinea unguium (ICD-10 - B35.1) 09/17/2024 Pain in left toe(s) (ICD-10 - M79.675) 01/21/2025 Tinea unguium (ICD-10 - B35.1) 04/14/2025 Pain in right toe(s) (ICD-10 - M79.674) 01/21/2025 Pain in left toe(s) (ICD-10 - [...] 06/07/2022 Next Appt Details Provider Name:Yarely puckett, 07/07/2025 03:00:00 PM, [address] [place], [address], Insurance Providers Payer Name Payer Address Payer Phone Subscriber Number Group Number Insured Name Patient Relationship to Insured Coverage Start Date Coverage End Date [facility] [address] [place] [phone] [id number] Alicia Noel Self - patient is the insured Medical (General) History Medical History History ICD Code Angina Anxiety Arthritis Back, Hip, Knee Pain Depression Headaches/Migraines Heart Disease High Blood Pressure Poor Circulation Psychiatric Disorder CAD (Cholesterol) type II diabetes Crack in the ribs Surgical History Surgery Date(Month/Year) gall bladder Surgery lumpectomy cataracts Fibroid Hospitalization History Reason Date(Month/Year) [facility] [place] -3 days C- blood pressure- 2 days - changed wa ter pills 04/11 [facility] [place] blood pressure - water pill sta yed 2 days 03/07/2021
== END 2025-04-22 12:13 | disposition home or self-care (01) ==
LOC: HO.ENCR 11:22
PROVIDERS: PCP Internal Medicine; Visit Provider Nurse Practitioner Adult Health
DX: E11.22 Type 2 diabetes mellitus with diabetic chronic kidney disease (principal); N18.4 Chronic kidney disease, stage 4 (severe)
CPT/HCPCS: 99214; G2211

== ENCOUNTER → 2025-04-22 11:22 | Outpatient (BNVA) | payer OTHER, SELFPAY | PROVIDERS: PCP Internal Medicine; Visit Provider Nurse Practitioner Adult Health | DX: E11.22 Type 2 diabetes mellitus with diabetic chronic kidney disease (principal); N18.4 Chronic kidney disease, stage 4 (severe) | CPT/HCPCS: 82947; 83036; 99212 ==

== ENCOUNTER 2025-04-28 13:36 | Outpatient (AMB) | payer OTHER, SELFPAY ==
--- OUTSIDE RECORDS SUMMARY | 2025-04-28 14:21 | XMS_ITS | Clinical Summary ---
Author Organization [facility] Address [address] [place] [address] Phone Care Team Providers Care Hr Director Name Role Phone Boaz Astorga MD Primary Care Provider [phone] Allergies Active Allergy Reactions Criticality Noted Date [...] Visual Foot Exam 12/15/2021 Influenza Vaccine (#1) 2025 08/22/2021 Hepatitis B Vaccine Aged Out No longe r eligible based on patient's age to complete this topic Insurance [facility] ([id number]) [facility] ([id number]) Care Teams Hr Director Relationship Specialty Start Date End Date Boaz Astorga MD [address] [place] [address] PCP - General 11/01/20
--- OUTSIDE RECORDS SUMMARY | 2025-04-28 14:22 | XMS_ITS | Patient Health Record ---
[facility] Address [address] [place] [address] Care Team Providers Care Senior Java Programmer Name Role Phone Robel Astorga MDh Primary Care Provider Yarely Medina Unavailable [phone] Allergies Allergen (clinical drug ingredient) Drug/Non Drug [...] Boaz Referring Provider Last Name Rizwan Referred [facility] Referred Provider Yarely Gibbs Referred Address [address] [place], [place],[address], Referred Provider Specialty Podiatry Referral Priority Routine [...] a day; Duration: 30 day(s) Active Nystatin 137539 UNIT/GM 1 application Externally Twice a day [...] Problem Acquired hammer toe of right foot (29310537732662 05) Other hammer toe(s) (acquired), right foot (M20.41) Active confirmed Problem Type 2 diabetes mellitus with peripheral angiopathy (258702552) Type 2 diabetes mellitus with diabetic peripheral angiopathy without gangrene (E11.51) Active confirmed Problem Acquired hammer toe of left foot (03905399218202 03) Other hammer toe(s) (acquired), left foot (M20.42) Active confirmed Vital Signs Blood pressure diastolic 71 mm Hg 04/14/2025 Height 5 ft in 04/14/2025 Blood pressure systolic 146 mm Hg 04/14/2025 Weight 136 lbs 04/14/2025 BMI 26.56 kg/m2 04/14/2025 Encounters Encounter Location Date Provider Diagnosis [address] [address] 07/09/2024 Yarely Perica Tinea pedis of both feet B35.3 ; Type 2 diabetes mellitus with diabetic peripheral angiopathy without gangrene E11.51 ; Tinea unguium B35.1 ; Pain in left toe(s) M79.675 and Pain in right toe(s) M79.[address] [facility] [address] 09/17/2024 Yarely Perica Tinea pedis of both feet B35.3 ; Type 2 diabetes mellitus with diabetic peripheral angiopathy without gangrene E11.51 ; Tinea unguium B35.1 ; Pain in left toe(s) M79.675 ; Pain in right toe(s) M79.674 and Xerosis cutis L85.[address] [address] 01/21/2025 Yarely Perica Tinea pedis of both feet B35.3 ; Other hammer toe(s) (acquired), right foot M20.41 ; Type 2 diabetes mellitus with diabetic peripheral angiopathy without gangrene E11.51 ; Tinea unguium B35.1 ; Pain in left toe(s) M79.675 ; Pain in right toe(s) M79.674 ; Xerosis cutis L85.3 and Other hammer toe(s) (acquired), left foot M20.[address] [facility] [address] [address] 04/14/2025 Yarely Gibbs Type 2 diabetes mellitus with diabetic peripheral angiopathy without gangrene E11.51 ; Tinea unguium B35.1 ; Pain in left toe(s) M79.675 and Pain in right toe(s) M79.[address] [facility] [address] 05/26/2024 Yarely Gibbs [facility] [address] [address] 05/27/2024 Yarely Perica [facility] [address] [address] 07/02/2024 Yarely Perica [facility] [address] 12/02/2024 Yarely Perica [facility] [address] 01/21/2025 Yarely Gibbs Assessments Encounter Date Diagnosis [...] Provider Name:Yarely puckett, 07/07/2025 03:00:00 PM, [address] [place], [address], Insurance Providers Payer Name Payer Address Payer Phone Subscriber Number Group Number Insured Name Patient Relationship to Insured Coverage Start Date Coverage End Date [facility] [address] [place] [phone] [id number] Alicia Noel Self - patient is the insured Medical (General) History Medical History History ICD Code Angina Anxiety Arthritis Back, Hip, Knee Pain Depression Headaches/Migraines Heart Disease High Blood Pressure Poor Circulation Psychiatric Disorder CAD (Cholesterol) type II diabetes Crack in the ribs Surgical History Surgery Date(Month/Year) gall bladder Surgery lumpectomy cataracts Fibroid Hospitalization History Reason Date(Month/Year) [facility] [place] BP -3 days C- blood pressure- 2 days - changed wa ter pills 04/11 [facility] [place] low blood pressure - water pill sta yed 2 days 03/07/2021
[2025-04-28 14:31] VITALS: BMI 27.0
--- NOTE | 2025-04-28 14:31 | MHC.AMNUTRGE ---
VS Expanded 04/28/25 14:31 Height 5 ft Weight 138 lb 3.677 oz BMI 27.0 Intake Visit Reasons: T2DM Allergies aspirin (Aspirin) Allergy (Severe, Verified 04/22/25 11:25) MOUTH SWELLING hydrochlorothiazide (Hydrochlorothiazide) Allergy (Intermediate, Verified 04/22/25 11:25) DROP IN BLOOD PRESSURE Penicillins (PENICILLINS) Allergy (Intermediate, Verified 04/22/25 11:25) ITCHING caffeine (Caffeine) Allergy (Mild, Verified 04/22/25 11:25) NERVOUSNESS lisinopril (Lisinopril) Allergy (Mild, Verified 04/22/25 11:25) CHANGES IN BLOOD PRESSURE ranitidine (RANITIDINE) Allergy (Mild, Verified 04/22/25 11:25) HEADACHE amlodipine (AMLODIPINE) Allergy (Unknown, Verified 04/22/25 11:25) UNKNOWN amoxicillin Allergy (Unknown, Verified 04/22/25 11:25) itching, severe with rash diclofenac Allergy (Unknown, Verified 04/22/25 11:25) Unknown escitalopram Allergy (Unknown, Verified 04/22/25 11:25) abdominal discomfort, drowsiness esomeprazole (Nexium) Allergy (Unknown, Verified 04/22/25 11:25) Unknown isosorbide (ISOSORBIDE) Allergy (Unknown, Verified 04/22/25 11:25) UNKNOWN lidocaine (Lidoderm) Allergy (Unknown, Verified 04/22/25 11:25) weakness mirtazapine Allergy (Unknown, Verified 04/22/25 11:25) Unknown nystatin Allergy (Unknown, Verified 04/22/25 11:25) rash sertraline (SERTRALINE) Allergy (Unknown, Verified 04/22/25 11:25) UNKNOWN dexlansoprazole (From DEXILANT) Adverse Reaction (Severe, Verified 04/22/25 11:25) AGITATION hydrocortisone (From Cortizone-10) Adverse Reaction (Mild, Verified 04/22/25 11:25) RAISES BLOOD SUGAR semaglutide (From Ozempic) Adverse Reaction (Mild, Verified 04/22/25 11:25) gerd topiramate (From TOPAMAX) Adverse Reaction (Unknown, Verified 04/22/25 11:25) AGITATION trajenta Allergy (Severe, Uncoded 04/22/25 11:25) numbness From PLAVIX Allergy (Unknown, Uncoded 04/22/25 11:25) PT UNSURE OF REACTION Medical tape Allergy (Unknown, Uncoded 04/22/25 11:25) Rash Nutrition Presentation Details: Pt presents for MNT f/u for T2DM Pt reports doing well, no questions or concerns at this time. did not bring glucometer to this appointment. Reports bg in the 130s -150s in fasting state, improving as compared to the last visit Pt reports havign 3 meals/day -f ollowing healthy plat e method, feels well BS Monitoring Most Recent Diabetes Results: Creatinine, (0.5-1.4) 2.47 mg/dL H 05/08/25 BUN, (9-16) 45 mg/dL H 05/08/25 Sodium, (135-145) 133 mmol/L L 05/08/25 Potassium, (3.3-5.1) 4.5 mmol/L 05/08/25 Chloride, (96-108) 102 mmol/L 05/08/25 Carbon Dioxide, (22-29) 25 mmol/L 05/08/25 Calcium, (8.4-10.2) 9.4 mg/dL 05/08/25 PFSH Medical History Left bundle branch block Type 2 diabetes mellitus with chronic kidney disease Chronic kidney disease, stage 4 (severe) Type 2 diabetes mellitus Obesity Skin abrasion HARRIET (renal artery stenosis) Nonischemic cardiomyopathy Urinary incontinence GERD (gastroesophageal reflux disease) COVID-19 Pneumonia due to COVID-19 virus Vertigo Obesity (BMI 30-39.9) Depression Anxiety Stasis edema of both lower extremities Cardiomyopathy Pure hypercholesterolemia Hyperkalemia Renal artery stenosis Benign essential hypertension Conjunctival hemorrhage of right eye Surgical History Hx of colonoscopy Hx of myomectomy History of cataract surgery History of lumpectomy of left breast History of cholecystectomy Family History Father CVD (cardiovascular disease) Myocardial infarction Mother Myocardial infarction CVD (cardiovascular disease) Brother Myocardial infarction Family/Other FH: prostate cancer Social History Household Members: None Housing: Apartment Do you presently have visiting nurse or other home services: No Alcohol intake: never Patient Tobacco Use Status: Former Tobacco user Tobacco use type: Cigarette e-Cigarette/Vaping Use: Never Used Second Hand Smoke Exposure: No Advance Directives Date on File: 08/06/21 service: No Current occupational status: disabled Cognitive needs: No Hearing needs: No Vision needs: Yes Assessment & Plan Assessment & Plan (1) Type 2 diabetes mellitus with chronic kidney disease: Code(s): E11.22 - Type 2 diabetes mellitus with diabetic chronic kidney disease Category: Medical Qualifiers: Chronic kidney disease stage: stage 4 (severe) 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 continuous churn buttermaker insulin use: without fdc use Qualified Code(s): E11.22 - Type 2 diabetes mellitus with diabetic chronic kidney disease; N18.4 - Chronic kidney disease, stage 4 (severe) Plan: Wt: 61 Kg ( 11/15 ), 62 kg(02/13), 04/28/25 Est kcal needs as per MSJ: 1400 (40% carb, 30% protein/fat) Est fluid needs as per 25-30 ml/d: 1800 Est prot per day as per 1 g/kg bw: 61 Recommend fiber intake : 8-10 g per day and gradually increase to 25-28 g per day for women and 35-38 g for men or as tolerated Recommend sodium intake per day : less than 2000 mg Educated patient on: ( R = reviewed V = verbalizes understanding N/R = needs review N/A = not applicable Food sources of carbohydrate, adequate serving sizes and its role in various health conditions: R Differences between complex carbohydrates a simple carbohydrates, role of fiber in diet: R Lean protein sources of foods: R Differences between types of fats and role in diet (mono on saturated fat fatty acids, saturated fatty acids, trans fats): R V N/R Food sources of sodium in salt and healthy modifications for heart health in kidney health: R V R/V Vitamins and minerals: R V N/R Healthy plate method concept: R V N/R Physical activity: Benefits a precaution: R V N/R Hypoglycemia protocol (rule of 15): R V N/R Dietary prevention of Hyperglycemia: R Patient Instructions: continue working on following healthy plate method ok to have 1 egg daily (no salt added) Coding Level of Care Code Nutr Indiv Subseq (61863) Diagnoses Type 2 diabetes mellitus with stage 4 chronic kidney disease, without long-term current use of insulin E11.22; N18.4 Chronic kidney disease stage: stage 4 (severe) 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 continuous churn buttermaker insulin use: without continuous churn buttermaker use Time Spent (min) 20
== END 2025-04-28 14:47 | disposition home or self-care (01) ==
LOC: HO.ENCR 13:37
PROVIDERS: PCP Internal Medicine; Visit Provider Dietitian, Registered
DX: E11.22 Type 2 diabetes mellitus with diabetic chronic kidney disease (principal); N18.4 Chronic kidney disease, stage 4 (severe)

== ENCOUNTER → 2025-04-28 13:36 | Outpatient (BNVA) | payer OTHER, SELFPAY | PROVIDERS: PCP Internal Medicine; Visit Provider Dietitian, Registered | DX: Z71.3 Dietary counseling and surveillance (principal); E11.22 Type 2 diabetes mellitus with diabetic chronic kidney disease; N18.4 Chronic kidney disease, stage 4 (severe) | CPT/HCPCS: 97803 ==

== ENCOUNTER 2025-05-08 12:21 | Outpatient (REF) | payer OTHER, SELFPAY ==
--- OUTSIDE RECORDS SUMMARY | 2025-05-08 12:24 | XMS_ITS | Patient Health Record ---
Author Organization [facility] Address [address] [place] [address] Care Team Providers Care Electronic Masking System Operator Name Role Phone Robel Astorga MDh Primary Care Provider Yarely Medina Unavailable [phone] Allergies Allergen (clinical drug ingredient) Drug/Non Drug [...] Boaz Referring Provider Last Name Rizwan Referred [facility] Referred Provider Yarely Gibbs Referred Address [address] [place], [place],[address], Referred Provider Specialty Podiatry Referral Priority Routine Medications Medication SIG (Take, Route, Frequency, Duration) Notes Start Date End Date Status Lantus Active Trulicity 0.75 MG/0.5ML as directed Subcutaneous Not-Taking Tradjenta 5 MG 1 tablet Orally Once a day Active ALPRAZolam 0.25 MG 1 [...] style shoes; Duration: 365 days 01/21/2025 Active Ozempic Not-Taking metFORMIN HCl 500 MG 1 tablet with a modesto l Orally Once a day; Duration: 30 days Not-Taking Atorvastatin Calcium 80 MG 1 tablet Orally Once a day; Duration: 30 day(s) Not-Taking Rosuvastatin Calcium 40 MG TAKE 1 TABLET BY MOUTH DAILY Oral; Duration: 90 Days Active Spironolactone Activ e Vitamin D Active Ciclopirox Olamine 0.77 % APPLY EXTERNAL LY TO AFFECTED AREA ON FEET TWICE A DAY; Duration: 15 Active Furosemide 20 MG 1 tablet Orally [...] a day; Duration: 30 day(s) Active Nystatin 832660 UNIT/GM 1 application Externally Twice a day [...] Problem Acquired hammer toe of right foot (54327714827822 05) Other hammer toe(s) (acquired), right foot (M20.41) Active confirmed Problem Type 2 diabetes mellitus with peripheral angiopathy (330110479) Type 2 diabetes mellitus with diabetic peripheral angiopathy without gangrene (E11.51) Active confirmed Problem Acquired hammer toe of left foot (72771328530540 03) Other hammer toe(s) (acquired), left foot (M20.42) Active confirmed Vital Signs Blood pressure diastolic 71 mm Hg 04/14/2025 Height 5 ft in 04/14/2025 Blood pressure systolic 146 mm Hg 04/14/2025 Weight 136 lbs 04/14/2025 BMI 26.56 kg/m2 04/14/2025 Encounters Encounter Location Date Provider Diagnosis [address] [address] 07/09/2024 Yarely Perica Tinea pedis of both feet B35.3 ; Type 2 diabetes mellitus with diabetic peripheral angiopathy without gangrene E11.51 ; Tinea unguium B35.1 ; Pain in left toe(s) M79.675 and Pain in right toe(s) M79.[address] [address] 09/17/2024 Yarely Perica Tinea pedis of both feet B35.3 ; Type 2 diabetes mellitus with diabetic peripheral angiopathy without gangrene E11.51 ; Tinea unguium B35.1 ; Pain in left toe(s) M79.675 ; Pain in right toe(s) M79.674 and Xerosis cutis L85.[address] [address] 01/21/2025 Yarely Perica Tinea pedis of both feet B35.3 ; Other hammer toe(s) (acquired), right foot M20.41 ; Type 2 diabetes mellitus with diabetic peripheral angiopathy without gangrene E11.51 ; Tinea unguium B35.1 ; Pain in left toe(s) M79.675 ; Pain in right toe(s) M79.674 ; Xerosis cutis L85.3 and Other hammer toe(s) (acquired), left foot M20.42 [facility] [address] [address] 04/14/2025 Yarely Gibbs Type 2 diabetes mellitus with diabetic peripheral angiopathy without gangrene E11.51 ; Tinea unguium B35.1 ; Pain in left toe(s) M79.675 and Pain in right toe(s) M79.674 [facility] [address] [address] 05/26/2024 Yarely Perica [facility] [address] 05/27/2024 Yarely Perica [facility] [address] 07/02/2024 Yarely Perica [facility] [address] 12/02/2024 Yarely Perica [facility] [address] 01/21/2025 Yarely Gibbs Assessments Encounter Date Diagnosis [...] Provider Name:Yarely puckett, 07/07/2025 03:00:00 PM, [address] [place] [address], [address], Insurance Providers Payer Name Payer Address Payer Phone Subscriber Number Group Number Insured Name Patient Relationship to Insured Coverage Start Date Coverage End Date [facility] [id number] [place] [phone] [id number] Alicia Noel Self - patient is the insured Medical (General) History Medical History History ICD Code Angina Anxiety Arthritis Back, Hip, Knee Pain Depression Headaches/Migraines Heart Disease High Blood Pressure Poor Circulation Psychiatric Disorder CAD (Cholesterol) type II diabetes Crack in the ribs Surgical History Surgery Date(Month/Year) gall bladder Surgery lumpectomy cataracts Fibroid Hospitalization History Reason Date(Month/Year) [facility] [place] -3 days [facility] [place] blood pressure- 2 days - changed wa ter pills 04/11 [facility] [place] low blood pressure - water pill sta yed 2 days 03/07/2021
[2025-05-08 14:46] LABS: Anion Gap 11 (12-20); Blood Urea Nitrogen 45 mg/dL (9-16); Calcium 9.4 mg/dL (8.4-10.2); Carbon Dioxide 25 mmol/L (22-29); Chloride 102 mmol/L (96-108); Estimated Glomerular Filt Rate 19; Potassium 4.5 mmol/L (3.3-5.1); Sodium 133 mmol/L (135-145)
== END 2025-05-08 12:22 | disposition home or self-care (01) ==
LOC: HO.LAB 12:21
PROVIDERS: PCP Internal Medicine; Visit Provider Internal Medicine Nephrology
DX: N18.4 Chronic kidney disease, stage 4 (severe) (principal)
CPT/HCPCS: 36415; 80051; 82310; 82565; 84520

== ENCOUNTER 2025-06-02 10:46 | Outpatient (AMB) | payer OTHER, SELFPAY ==
--- NOTE | 2025-06-02 10:48 | A.OFFVIS_ITS ---
Vital Signs 06/02/25 10:55 Height 5 ft Weight 135 lb BMI 26.4 BP 154/70 H Blood Pressure Location Rt brachial Position Sitting Pulse 66 Pulse Source Pulse Oximeter Pulse Oximetry (%) 98 Oxygen Delivery Method Room Air Intake Visit Reasons: f/6 mos FUV. CIC mgmt. R/S x1 Intake Note: Est pt for mgmt of CIC. CC: C.O. occasional reflux episode. Pt states that she has been well controlled for the majority of the time; however, she does notice occasional episodes with certain triggers (fresh fruits). Data Officer Required: No Accompanied by: Shallot Cleaner Allergies aspirin (Aspirin) Allergy (Severe, Verified 06/02/25 10:51) MOUTH SWELLING hydrochlorothiazide (Hydrochlorothiazide) Allergy (Intermediate, Verified 06/02/25 10:51) DROP IN BLOOD PRESSURE Penicillins (PENICILLINS) Allergy (Intermediate, Verified 06/02/25 10:51) ITCHING caffeine (Caffeine) Allergy (Mild, Verified 06/02/25 10:51) NERVOUSNESS lisinopril (Lisinopril) Allergy (Mild, Verified 06/02/25 10:51) CHANGES IN BLOOD PRESSURE ranitidine (RANITIDINE) Allergy (Mild, Verified 06/02/25 10:51) HEADACHE amlodipine (AMLODIPINE) Allergy (Unknown, Verified 06/02/25 10:51) UNKNOWN amoxicillin Allergy (Unknown, Verified 06/02/25 10:51) itching, severe with rash diclofenac Allergy (Unknown, Verified 06/02/25 10:51) Unknown escitalopram Allergy (Unknown, Verified 06/02/25 10:51) abdominal discomfort, drowsiness esomeprazole (Nexium) Allergy (Unknown, Verified 06/02/25 10:51) Unknown isosorbide (ISOSORBIDE) Allergy (Unknown, Verified 06/02/25 10:51) UNKNOWN lidocaine (Lidoderm) Allergy (Unknown, Verified 06/02/25 10:51) weakness mirtazapine Allergy (Unknown, Verified 06/02/25 10:51) Unknown nystatin Allergy (Unknown, Verified 06/02/25 10:51) rash sertraline (SERTRALINE) Allergy (Unknown, Verified 06/02/25 10:51) UNKNOWN dexlansoprazole (From DEXILANT) Adverse Reaction (Severe, Verified 06/02/25 10:5 1) AGITATION hydrocortisone (From Cortizone-10) Adverse Reaction (Mild, Verified 06/02/25 10:51) RAISES BLOOD SUGAR semaglutide (From Ozempic) Adverse Reaction (Mild, Verified 06/02/25 10:51) gerd topiramate (From TOPAMAX) Adverse Reaction (Unknown, Verified 06/02/25 10:51) AGITATION trajenta Allergy (Severe, Uncoded 06/02/25 10:51) numbness From PLAVIX Allergy (Unknown, Uncoded 06/02/25 10:51) PT UNSURE OF REACTION Medical tape Allergy (Unknown, Uncoded 06/02/25 10:51) Rash HPI HPI f/6 mos FUV. [facility]IC mgmt. R/S x1: Details: LAST VISIT: GERD (gastroesophageal reflux disease) Chronic idiopathic constipation Abnormal intentional weight loss Weight loss, unintentional Plan Patient reports weight loss over last year, however she was on Trulicity and now on Ozempic most likely related to that, however patient will be referred to digital solutions architect. Continue pantoprazole daily. Avoid dietary triggers and late night snacking. Staying upright for minimum 3 hours after meals discussed with patient. Continue fiber supplement and senna. Increase fluid intake and activity to promote better bowel motility. Patient will follow-up in our office in 6 months, sooner on as needed basis. She is agreeable to this plan and verbalizes understanding of instructions. She was given the opportunity to ask questions and all questions answered. ? Thank you for allowing me to participate in her care Referrals Fixed Income Director Nutrition Referral R63.4 Refilled sennosides 17.2 mg (2 x 8.6 mg) PO DAILY 180 tabs 4RF constipation TODAY'S VISIT Patient is here today for follow-up. Patient reports that she has been doing better. She tried to lower her dose of pantoprazole, however she was getting epigastric pain. Her supervisor major appliance assembly ordered her higher dose. She is currently taking 40 mg daily and her symptoms of acid reflux are suppressed. Patient reports that she is moving her bowels better. Take Senokot as needed. Patient is no longer taking GLP1 and was switched to insulin. Patient was losing too much weight. She continues to follow with endocrinology. Patient has a assistant health educator as well as is seeing digital solutions architect. Patient denies melena, hematochezia, unintentional weight loss or ribbon like stools. Patient's weight has been stable since last visit. [facility] Medical History Left bundle branch block Type 2 diabetes mellitus with chronic kidney disease Chronic kidney disease, stage 4 (severe) Type 2 diabetes mellitus Obesity Skin abrasion HARRIET (renal artery stenosis) Nonischemic cardiomyopathy Urinary incontinence GERD (gastroesophageal reflux disease) COVID-19 Pneumonia due to COVID-19 virus Vertigo Obesity (BMI 30-39.9) Depression Anxiety Stasis edema of both lower extremities Cardiomyopathy Pure hypercholesterolemia Hyperkalemia Renal artery stenosis Benign essential hypertension Conjunctival hemorrhage of right eye Surgical History Hx of colonoscopy Hx of myomectomy History of cataract surgery History of lumpectomy of left breast History of cholecystectomy Family History Father CVD (cardiovascular disease) Myocardial infarction Mother Myocardial infarction CVD (cardiovascular disease) Brother Myocardial infarction Family/Other FH: prostate cancer Social History Household Members: None Housing: Apartment Do you presently have visiting nurse or other home services: No Alcohol intake: never Patient Tobacco Use Status: Former Tobacco user Tobacco use type: Cigarette e-Cigarette/Vaping Use: Never Used Second Hand Smoke Exposure: No Advance Directives Date on File: 08/06/21 service: No Current occupational status: disabled Cognitive needs: No Hearing needs: No Vision needs: Yes Review of Systems Const Denies weight gain and Reports weight loss ENT Reports no additional complaints, Denies dysphagia and Denies odynophagia Card Reports no additional complaints Resp Reports no additional complaints GI Denies abdominal pain, Denies belching, Denies melena, Denies bloating, Denies change in bowel habits, Denies dysphagia, Denies excessive flatus, Denies dyspepsia, Denies heartburn, Denies diarrhea, Denies loose stools, Denies nausea, Denies odynophagia and Denies vomiting Reports no additional complaints Musc Reports no additional complaints Neuro Reports no additional complaints Psych Reports no additional complaints Endo Reports no additional complaints Physical Exam Vital Signs: Last Vital Signs Pulse 66 06/02/25 10:55 BP 154/70 H 06/02/25 10:55 Pulse Ox 98 06/02/25 10:55 Oxygen Delivery Method Room Air 06/02/25 10:55 BMI result Body Mass Index 26.4 Const General: healthy appearing, no acute distress and well developed Orientation/consciousness: patient oriented x3 Resp Effort & Inspection: normal respiratory effort, able to speak in complete sentences, no tracheal deviation and symmetric chest movement Auscultation: clear to auscultation bilaterally Cardio Rate: regular rate GI Inspection: Yes normal to inspection, No distended and Yes obesity Palpation (GI): Soft to palpation, not firm, nontender and No hepatosplenomegaly present Auscultation: normal bowel sounds General: Yes no CVA tenderness Back/Spine/Pelvis Back: no CVA tenderness Skin General skin exam: elasticity normal, turgor normal and dry skin Neuro General: patient oriented x3 Psych Appearance: grossly normal Mental Status: mental status grossly normal Assessment & Plan Assessment & Plan (1) GERD (gastroesophageal reflux disease): Code(s): K21.9 - Gastro-esophageal reflux disease without esophagitis Category: Medical Qualifiers: Esophagitis presence: esophagitis presence not specified Qualified Code(s): K21.9 - Gastro-esophageal reflux disease without esophagitis (2) Chronic idiopathic constipation: Code(s): K59.04 - Chronic idiopathic constipation Plan Will continue taking pantoprazole daily. Avoid dietary triggers and late night snacking. Staying upright for minimum 3 hours after meals discussed with shala fraser. Continue taking senna as needed. Increase fluid intake and activity to promote better bowel motility. Patient will return in the office in 3-4 months, sooner on as needed basis. She is agreeable to this plan and verbalizes understanding of instructions. She was given the opportunity to ask questions and all questions answered. Thank you for allowing me to participate in her care Coding Level of Care Code Est Pt Level 3 (90923) Diagnoses Gastroesophageal reflux disease, unspecified whether esophagitis present K21.9 Esophagitis presence: esophagitis presence not specified Chronic idiopathic constipation K59.04 Time Spent (min) 30 Comment 20 minutes spent with patient and additional 10 minutes spent reviewing her records
[2025-06-02 10:55] VITALS: BP 154/70; PULSE 66; O2SAT 98; BMI 26.4
--- OUTSIDE RECORDS SUMMARY | 2025-06-02 11:53 | XMS_ITS | Clinical Summary ---
Author Organization [facility] Address [address] [place] [address] Phone Care Team Providers Care Airline Lounge Receptionist Name Role Phone Boaz Astorga MD Primary Care Provider [phone] Allergies Active Allergy Reactions Criticality Noted Date [...] patient's age to complete this topic Insurance [place] [employer] [facility] ([id number]) [place] [employer] [facility] ([id number]) Care Teams Airline Lounge Receptionist Relationship Specialty Start Date End Date Boaz Astorga MD [address] [place] [address] PCP - General 11/01/20
--- OUTSIDE RECORDS SUMMARY | 2025-06-02 11:54 | XMS_ITS | Patient Health Record ---
[facility] Address [address] [place] [address] Care Team Providers Care Front Desk Person Name Role Phone Robel Astorga MDh Primary Care Provider Yarely Medina Unavailable [phone] Allergies Allergen (clinical drug ingredient) Drug/Non Drug [...] A1C % (HH) 7.2 Reason For Referral No Information Medications Medication SIG (Take, Route, Frequency, Duration) [...] a day; Duration: 30 day(s) Active Nystatin 932268 UNIT/GM 1 application Externally Twice a day Not-Takin g Immunizations Vaccine Route Administration Date Status Comme nts Influenza Unknown 08/22/2022 Administered Influenza Unknown 07/25/2023 Administered Influenza Unknown 06/22/2024 Administered COVID-19 Pfizer BioNTech Vaccine Unknown 09/08/2021 Administered 1st 01/06/2021 2nd 01/27/2021 Social History Tobacco Use: Social History Observation [...] Problem Acquired hammer toe of right foot (279072133898 9105) Other hammer toe(s) (acquired), right foot (M20.41) Active confirmed Problem Type 2 diabetes mellitus with diabetic peripheral angiopathy without gangrene (E11.51) Active confirmed Problem Acquired hammer toe of left foot ([id number] 9103) Other hammer toe(s) (acquired), left foot (M20.42) Active confirmed Vital Signs Blood pressure diastolic 71 mm Hg 04/14/2025 Height 5 ft in 04/14/2025 Blood pressure systolic 146 mm Hg 04/14/2025 Weight 136 lbs 04/14/2025 BMI 26.56 kg/m2 04/14/2025 Encounters Encounter Location Date [facility] [address] 07/09/2024 Yarely Gibbs Tinea pedis of both feet B35.3 ; Type 2 diabetes mellitus with diabetic peripheral angiopathy without gangrene E11.51 ; Tinea unguium B35.1 ; Pain in left toe(s) M79.675 and Pain in right toe(s) M79.674 [facility] [address] 09/17/2024 Yarely Gibbs Tinea pedis of both feet B35.3 ; Type 2 diabetes mellitus with diabetic peripheral angiopathy without gangrene E11.51 ; Tinea unguium B35.1 ; Pain in left toe(s) M79.675 ; Pain in right toe(s) M79.674 and Xerosis cutis L85.[address] [address] 01/21/2025 Yarely Simeona Tinea pedis of both feet B35.3 ; Other hammer toe(s) (acquired), right foot M20.41 ; Type 2 diabetes mellitus with diabetic peripheral angiopathy without gangrene E11.51 ; Tinea unguium B35.1 ; Pain in left toe(s) M79.675 ; Pain in right toe(s) M79.674 ; Xerosis cutis L85.3 and Other hammer toe(s) (acquired), left foot M20.[address] [address] 04/14/2025 Yarely Gibbs Type 2 diabetes mellitus with diabetic peripheral angiopathy without gangrene E11.51 ; Tinea unguium B35.1 ; Pain in left toe(s) M79.675 and Pain in right toe(s) M79.[address] [address] 07/02/2024 Yarely Gibbs [address] [address] 12/02/2024 Yarely Gibbs [address] [address] 01/21/2025 Yarely Gibbs Assessments Encounter Date Diagnosis [...] Details Provider Name:Yarely puckett, 07/07/2025 03:00:00 PM, [address] [place] [address], [phone], Insurance Providers Payer Name Payer Address Payer Phone Subscriber Number Group Number Insured Name Patient Relationship to Insured Coverage Start Date Coverage End Date [facility] [address] [place] [phone] [id number] Alicia Noel Self - patient is the insured Medical (General) History Medical History History ICD Code Angina Anxiety Arthritis Back, Hip, Knee Pain Depression Headaches/Migraines Heart Disease High Blood Pressure Poor Circulation Psychiatric Disorder CAD (Cholesterol) type II diabetes Crack in the ribs Surgical History Surgery Date(Month/Year) gall bladder Surgery lumpectomy cataracts Fibroid Hospitalization History Reason Date(Month/Year) [facility] [place] BP -3 days [facility] [place] blood pressure- 2 days - changed wa ter pills 04/11 [facility] [place] low blood pressure - water pill sta yed 2 days 03/07/2021
== END 2025-06-02 11:27 | disposition home or self-care (01) ==
LOC: HO.HGI 10:46
PROVIDERS: PCP Internal Medicine; Visit Provider Nurse Practitioner Family
DX: K21.9 Gastro-esophageal reflux disease without esophagitis (principal); K59.04 Chronic idiopathic constipation
CPT/HCPCS: 99213

== ENCOUNTER → 2025-06-02 10:46 | Outpatient (BNVA) | payer OTHER, SELFPAY | PROVIDERS: PCP Internal Medicine; Visit Provider Nurse Practitioner Family | DX: K59.04 Chronic idiopathic constipation (principal); K21.9 Gastro-esophageal reflux disease without esophagitis | CPT/HCPCS: 99212 ==

== ENCOUNTER 2025-06-03 09:43 | Outpatient (AMB) | payer OTHER, SELFPAY ==
--- NOTE | 2025-06-03 10:01 | A.OFFVIS_ITS ---
Intake Intake Visit Reasons: 60 min Allergies aspirin (Aspirin) Allergy (Severe, Verified 06/02/25 10:51) MOUTH SWELLING hydrochlorothiazide (Hydrochlorothiazide) Allergy (Intermediate, Verified 06/02/25 10:51) DROP IN BLOOD PRESSURE Penicillins (PENICILLINS) Allergy (Intermediate, Verified 06/02/25 10:51) ITCHING caffeine (Caffeine) Allergy (Mild, Verified 06/02/25 10:51) NERVOUSNESS lisinopril (Lisinopril) Allergy (Mild, Verified 06/02/25 10:51) CHANGES IN BLOOD PRESSURE ranitidine (RANITIDINE) Allergy (Mild, Verified 06/02/25 10:51) HEADACHE amlodipine (AMLODIPINE) Allergy (Unknown, Verified 06/02/25 10:51) UNKNOWN amoxicillin Allergy (Unknown, Verified 06/02/25 10:51) itching, severe with rash diclofenac Allergy (Unknown, Verified 06/02/25 10:51) Unknown escitalopram Allergy (Unknown, Verified 06/02/25 10:51) abdominal discomfort, drowsiness esomeprazole (Nexium) Allergy (Unknown, Verified 06/02/25 10:51) Unknown isosorbide (ISOSORBIDE) Allergy (Unknown, Verified 06/02/25 10:51) UNKNOWN lidocaine (Lidoderm) Allergy (Unknown, Verified 06/02/25 10:51) weakness mirtazapine Allergy (Unknown, Verified 06/02/25 10:51) Unknown nystatin Allergy (Unknown, Verified 06/02/25 10:51) rash sertraline (SERTRALINE) Allergy (Unknown, Verified 06/02/25 10:51) UNKNOWN dexlansoprazole (From DEXILANT) Adverse Reaction (Severe, Verified 06/02/25 10:51) AGITATION hydrocortisone (From Cortizone-10) Adverse Reaction (Mild, Verified 06/02/25 10:51) RAISES BLOOD SUGAR semaglutide (From Ozempic) Adverse Reaction (Mild, Verified 06/02/25 10:51) gerd topiramate (From TOPAMAX) Adverse Reaction (Unknown, Verified 06/02/25 10:51) AGITATION trajenta Allergy (Severe, Uncoded 06/02/25 10:51) numbness From PLAVIX Allergy (Unknown, Uncoded 06/02/25 10:51) PT UNSURE OF REACTION Medical tape Allergy (Unknown, Uncoded 06/02/25 10:51) Rash HPI Comprehensive Diabetes Asmnt Most Recent Diabetes Results: 2 Hemoglobin A1c 7.4 % 05/26/20 Microalb/Creat Ratio, (<30) 52.7 ug/mg cr H 02/11/25 Cholesterol, (<200) 135 mg/dL 02/11/25 HDL Cholesterol, (>40) 54 mg/dL 02/11/25 Triglycerides, (<150) 56 mg/dL 02/11/25 Creatinine, (0.5-1.4) 2.47 mg/dL H 05/08/25 BUN, (9-16) 45 mg/dL H 05/08/25 Sodium, (135-145) 133 mmol/L L 05/08/25 Potassium, (3.3-5.1) 4.5 mmol/L 05/08/25 Chloride, (96-108) 102 mmol/L 05/08/25 Carbon Dioxide, (22-29) 25 mmol/L 05/08/25 Calcium, (8.4-10.2) 9.4 mg/dL 05/08/25 AST, (5-31) 27 U/L 02/11/25 ALT, (0-31) 17 U/L 02/11/25 Total Protein, (6.5-8.0) 8.0 g/dL 02/11/25 Albumin, (3.5-5.0) 4.5 g/dL 02/11/25 [facility] Medical History Left bundle branch block Type 2 diabetes mellitus with chronic kidney disease Chronic kidney disease, stage 4 (severe) Type 2 diabetes mellitus Obesity Skin abrasion HARRIET (renal artery stenosis) Nonischemic cardiomyopathy Urinary incontinence GERD (gastroesophageal reflux disease) COVID-19 Pneumonia due to COVID-19 virus Vertigo Obesity (BMI 30-39.9) Depression Anxiety Stasis edema of both lower extremities Cardiomyopathy Pure hypercholesterolemia Hyperkalemia Renal artery stenosis Benign essential hypertension Conjunctival hemorrhage of right eye Surgical History Hx of colonoscopy Hx of myomectomy History of cataract surgery History of lumpectomy of left breast History of cholecystectomy Family History Father CVD (cardiovascular disease) Myocardial infarction Mother Myocardial infarction CVD (cardiovascular disease) Brother Myocardial infarction Family/Other FH: prostate cancer Social History Household Members: None Housing: Apartment Do you presently have visiting nurse or other home services: No Alcohol intake: never Patient Tobacco Use Status: Former Tobacco user Tobacco use type: Cigarette e-Cigarette/Vaping Use: Never Used Second Hand Smoke Exposure: No Advance Directives Date on File: 08/06/21 service: No Current occupational status: disabled Cognitive needs: No Hearing needs: No Vision needs: Yes Assessment & Plan Assessment & Plan (1) Type 2 diabetes mellitus: Code(s): E11.9 - Type 2 diabetes mellitus without complications Qualifiers: 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 snf insulin use: without intermodal truck driver use 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 complication status: with kidney complications 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 complication detail: with chronic kidney disease Chronic kidney disease stage: stage 4 (severe) Qualified Code(s): E11.22 - Type 2 diabetes mellitus with diabetic chronic kidney disease; N18.4 - Chronic kidney disease, stage 4 (severe) Plan: Learning objectives: The patient was provided with verbal and written education on the following topics as outlined below. Patient's last A1c 8.9% on 04/22/2025 Patient questions/concerns, reports symptoms of hypoglycemia. No hypoglycemia noted on patient's download. However significant drop in glucose overnight puts patient at higher risk for hypoglycemia. If patient glucose was within target at bedtime with dropping glucose it could lead to overnight or morning hypoglycemia Patient is taking Lantus 6 units daily Postprandial numbers are above target Patient at visit with SALESPERSON [employer], both patient and [employer] note that carbohydrate portion at meals ranges from half cup to full cup. Patient reports she eats chicken, fish for protein does not eat red meat The patient met all learning objectives and was able to verbalize understanding and provide teach back of education topics discussed . The patient was provided with the opportunity to ask questions and all questions were answered. Topics covered in today?s session included: Insulin/Injectables (If applicable) * Storage/care of insulin?? * Injection sites? * Site rotation? * Onset, peak, duration * Drawing up insulin? * Injecting insulin/other injectables? * Sharps disposal Continuous blood glucose monitoring (if applicable) Hypoglycemia and Hyperglycemia * Signs and symptoms? * Causes?? * Treatment? * Preventing hypoglycemia? * When to seek medical attention Target Goals: * Blood glucose targets and how you feel when your blood glucose is in and out of your target ranges. * Monitoring and knowing your A1C. * What can make blood glucose go up and down and preventing high and low blood glucose. * Review of blood sugar targets in expected goal range and outside of expected goal range. * Problem solving and preventing hyper/hypoglycemia. * Using blood sugar results in decision making process in managing diabetes. ?Patient was receptive to information provided and participated in the discussion. Asked?appropriate questions and demonstrated good understanding of the topics discussed.? ? Educational Materials: The patient was provided with the following written educational materials: Target Goal, hypoglycemia handouts Typical [facility] food carb list given Patient Response to instructions: Comprehension of Instructions: fair Readiness to make changes:? Contemplation How confident they feel about making changes:fair Portions of this note were created using voice recognition software, please excuse any words or phrases that may have been misinterpreted. Patient Instructions: Move appointment up with endocrine PA, for medication review Follow-up with central scheduler 1 month after appointment with PA Coding Level of Care Code Est Pt Level 1 (54450) Diagnoses Type 2 diabetes mellitus with stage 4 chronic kidney disease, without long-term current use of insulin E11.22; N18.4 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 snf insulin use: without intermodal truck driver use 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 complication status: with kidney complications 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 complication detail: with chronic kidney disease Chronic kidney disease stage: stage 4 (severe)
--- OUTSIDE RECORDS SUMMARY | 2025-06-03 10:14 | XMS_ITS | Patient Health Record ---
[facility] Address [address] [facility] [address] Care Team Providers Care Transformer Builder Name Role Phone Robel Astorga MDh Primary Care Provider Yarely Medina Unavailable [phone] Allergies Allergen (clinical drug ingredient) Drug/Non Drug [...] a day; Duration: 30 day(s) Active Nystatin 151765 UNIT/GM 1 application Externally Twice a day [...] Problem Acquired hammer toe of right foot (05317740669170 05) Other hammer toe(s) (acquired), right foot (M20.41) Active confirmed Problem Type 2 diabetes mellitus with peripheral angiopathy (209530839) Type 2 diabetes mellitus with diabetic peripheral angiopathy without gangrene (E11.51) Active confirmed Problem Acquired hammer toe of left foot (36053216640764 03) Other hammer toe(s) (acquired), left foot (M20.42) Active confirmed Vital Signs Blood pressure diastolic 71 mm Hg 04/14/2025 Height 5 ft in 04/14/2025 Blood pressure systolic 146 mm Hg 04/14/2025 Weight 136 lbs 04/14/2025 BMI 26.56 kg/m2 04/14/2025 Encounters Encounter Location Date Provider Diagnosis [facility] [address] [place] [address] 07/09/2024 Yarely Gibbs Tinea pedis of both feet B35.3 ; Type 2 diabetes mellitus with diabetic peripheral angiopathy without gangrene E11.51 ; Tinea unguium B35.1 ; Pain in left toe(s) M79.675 and Pain in right toe(s) M79.[address] [address] 09/17/2024 Yarely Gibbs Tinea pedis of both feet B35.3 ; Type 2 diabetes mellitus with diabetic peripheral angiopathy without gangrene E11.51 ; Tinea unguium B35.1 ; Pain in left toe(s) M79.675 ; Pain in right toe(s) M79.674 and Xerosis cutis L85.[address] [address] 01/21/2025 Yarely Gibbs Tinea pedis of both feet B35.3 ; Other hammer toe(s) (acquired), right foot M20.41 ; Type 2 diabetes mellitus with diabetic peripheral angiopathy without gangrene E11.51 ; Tinea unguium B35.1 ; Pain in left toe(s) M79.675 ; Pain in right toe(s) M79.674 ; Xerosis cutis L85.3 and Other hammer toe(s) (acquired), left foot M20.[address] [address] 04/14/2025 Yarely Gibbs Type 2 diabetes mellitus with diabetic peripheral angiopathy without gangrene E11.51 ; Tinea unguium B35.1 ; Pain in left toe(s) M79.675 and Pain in right toe(s) M79.[address] [address] 07/02/2024 Yarely Gibbs [address] [address] 12/02/2024 Yarely Gibbs [address] [address] 01/21/2025 Yarely Gibbs Assessments Encounter Date Diagnosis [...] 3V 06/07/2022 Next Appt Details Provider Name:Yarely Puckett Blanco puckett, 07/07/2025 03:00:00 PM, [address] [place] [address], [phone], Insurance Providers Payer Name Payer Address Payer Phone Subscriber Number Group Number Insured Name Patient Relationship to Insured Coverage Start Date Coverage End Date [facility] [address] [place] [phone] [id number] Alicia Noel Self - patient is the insured Medical (General) History Medical History History ICD Code Angina Anxiety Arthritis Back, Hip, Knee Pain Depression Headaches/Migraines Heart Disease High Blood Pressure Poor Circulation Psychiatric Disorder CAD (Cholesterol) type II diabetes Crack in the ribs Surgical History Surgery Date(Month/Year) gall bladder Surgery lumpectomy cataracts Fibroid Hospitalization History Reason Date(Month/Year) [facility] High BP -3 days [facility]- blood pressure- 2 days - changed wa ter pills 04/11 [place]- low blood pressure - water pill sta yed 2 days 03/07/2021
--- OUTSIDE RECORDS SUMMARY | 2025-06-03 10:14 | XMS_ITS | Clinical Summary ---
Author Organization [facility] Address [address] [place] [address] Phone Care Team Providers Care Wild Life Manager Name Role Phone Boaz Astorga MD Primary Care Provider [phone]- [phone] Allergies Active Allergy Reactions Criticality Noted Date [...] age to complete this topic Insurance Lida [employer] ([id number]) [place] [employer] [facility] ([id number]) Care Teams Wild Life Manager Relationship Specialty Start Date End Date Boaz Astorga MD [address] [place] [address] PCP - General 11/01/20
== END 2025-06-03 10:40 | disposition home or self-care (01) ==
LOC: HO.ENCR 09:44
PROVIDERS: PCP Internal Medicine; Visit Provider Registered Nurse Diabetes Educator
DX: E11.22 Type 2 diabetes mellitus with diabetic chronic kidney disease (principal); N18.4 Chronic kidney disease, stage 4 (severe)

== ENCOUNTER → 2025-06-03 09:43 | Outpatient (BNVA) | payer OTHER, SELFPAY | PROVIDERS: PCP Internal Medicine; Visit Provider Registered Nurse Diabetes Educator | DX: E11.22 Type 2 diabetes mellitus with diabetic chronic kidney disease (principal); N18.4 Chronic kidney disease, stage 4 (severe) | CPT/HCPCS: 99211 ==

== ENCOUNTER 2025-06-12 11:38 | Outpatient (AMB) | payer OTHER, SELFPAY ==
--- OUTSIDE RECORDS SUMMARY | 2025-06-12 11:41 | XMS_ITS | Patient Health Record ---
Author Organization [facility] Address [address] [place] [address] Care Team Providers Care Pie Baker Name Role Phone Robel Astorga MDh Primary Care Provider Yarely Medina Unavailable [phone] Allergies Allergen (clinical drug ingredient) Drug/Non Drug [...] a day; Duration: 30 day(s) Active Nystatin 643083 UNIT/GM 1 application Externally Twice a day [...] Problem Acquired hammer toe of right foot (05911814362358 05) Other hammer toe(s) (acquired), right foot (M20.41) Active confirmed Problem Type 2 diabetes mellitus with peripheral angiopathy (526913690) Type 2 diabetes mellitus with diabetic peripheral angiopathy without gangrene (E11.51) Active confirmed Problem Acquired hammer toe of left foot (75558657951884 03) Other hammer toe(s) (acquired), left foot (M20.42) Active confirmed Vital Signs Blood pressure diastolic 71 mm Hg 04/14/2025 Height 5 ft in 04/14/2025 Blood pressure systolic 146 mm Hg 04/14/2025 Weight 136 lbs 04/14/2025 BMI 26.56 kg/m2 04/14/2025 Encounters Encounter Location Date Provider Diagnosis [facility] [address] [place] [address] 07/09/2024 Yarely Gibbs Tinea pedis of both feet B35.3 ; Type 2 diabetes mellitus with diabetic peripheral angiopathy without gangrene E11.51 ; Tinea unguium B35.1 ; Pain in left toe(s) M79.675 and Pain in right toe(s) M79.[address] [address] 09/17/2024 Yarely Gibbs Tinea pedis of both feet B35.3 ; Type 2 diabetes mellitus with diabetic peripheral angiopathy without gangrene E11.51 ; Tinea unguium B35.1 ; Pain in left toe(s) M79.675 ; Pain in right toe(s) M79.674 and Xerosis cutis L85.[address] [address] 01/21/2025 Yarely Gibbs Tinea pedis of both feet B35.3 ; Other hammer toe(s) (acquired), right foot M20.41 ; Type 2 diabetes mellitus with diabetic peripheral angiopathy without gangrene E11.51 ; Tinea unguium B35.1 ; Pain in left toe(s) M79.675 ; Pain in right toe(s) M79.674 ; Xerosis cutis L85.3 and Other hammer toe(s) (acquired), left foot M20.[address] [address] 04/14/2025 Yarely Gibbs Type 2 diabetes mellitus with diabetic peripheral angiopathy without gangrene E11.51 ; Tinea unguium B35.1 ; Pain in left toe(s) M79.675 and Pain in right toe(s) M79.[address] [address] 07/02/2024 Yarely Gibbs [address] [address] 12/02/2024 Yarely Gibbs [address] [address] 01/21/2025 Yarely Gibbs Assessments Encounter Date Diagnosis [...] Name:Yarely Puckett Blanco puckett, 07/07/2025 03:00:00 PM, [address] [place] [address], [phone], Insurance Providers Payer Name Payer Address Payer Phone Subscriber Number Group Number Insured Name Patient Relationship to Insured Coverage Start Date Coverage End Date [facility] [address] [place] [phone] [id number] Alicia Noel Self - patient is the [...]
--- OUTSIDE RECORDS SUMMARY | 2025-06-12 11:41 | XMS_ITS | Clinical Summary ---
Author Organization [facility] Address [address] [place] [address] Phone Care Team Providers Care Lemon Picker Name Role Phone Boaz Astorga MD Primary Care Provider [phone]- [phone] Allergies Active Allergy Reactions Criticality Noted Date [...] age to complete this topic Insurance [employer] [facility] ([id number]) [place] [employer] [facility] ([id number]) Care Teams Lemon Picker Relationship Specialty Start Date End Date Boaz Astorga MD [address] [place] [address] PCP - General 11/01/20
--- NOTE | 2025-06-12 11:53 | HO.NEPHOV ---
Vital Signs 06/12/25 11:54 Height 5 ft Weight 136 lb 8 oz BMI 26.7 BP 126/64 Blood Pressure Location Rt brachial Position Sitting Pulse 65 Pulse Source Pulse Oximeter Pulse Oximetry (%) 99 Oxygen Delivery Method Room Air Intake Visit Reasons: 2mon follow-up w/labs-Conf Control Panel Assembler Required: No Accompanied by: Self / Same As Patient Allergies aspirin (Aspirin) Allergy (Severe, Verified 06/12/25 11:54) MOUTH SWELLING hydrochlorothiazide (Hydrochlorothiazide) Allergy (Intermediate, Verified 06/12/25 11:54) DROP IN BLOOD PRESSURE Penicillins (PENICILLINS) Allergy (Intermediate, Verified 06/12/25 11:54) ITCHING caffeine (Caffeine) Allergy (Mild, Verified 06/12/25 11:54) NERVOUSNESS lisinopril (Lisinopril) Allergy (Mild, Verified 06/12/25 11:54) CHANGES IN BLOOD PRESSURE ranitidine (RANITIDINE) Allergy (Mild, Verified 06/12/25 11:54) HEADACHE amlodipine (AMLODIPINE) Allergy (Unknown, Verified 06/12/25 11:54) UNKNOWN amoxicillin Allergy (Unknown, Verified 06/12/25 11:54) itching, severe with rash diclofenac Allergy (Unknown, Verified 06/12/25 11:54) Unknown escitalopram Allergy (Unknown, Verified 06/12/25 11:54) abdominal discomfort, drowsiness esomeprazole (Nexium) Allergy (Unknown, Verified 06/12/25 11:54) Unknown isosorbide (ISOSORBIDE) Allergy (Unknown, Verified 06/12/25 11:54) UNKNOWN lidocaine (Lidoderm) Allergy (Unknown, Verified 06/12/25 11:54) weakness mirtazapine Allergy (Unknown, Verified 06/12/25 11:54) Unknown nystatin Allergy (Unknown, Verified 06/12/25 11:54) rash sertraline (SERTRALINE) Allergy (Unknown, Verified 06/12/25 11:54) UNKNOWN dexlansoprazole (From DEXILANT) Adverse Reaction (Severe, Verified 06/12/25 11:54) AGITATION hydrocortisone (From Cortizone-10) Adverse Reaction (Mild, Verified 06/12/25 11:54) RAISES BLOOD SUGAR semaglutide (From Ozempic) Adverse Reaction (Mild, Verified 06/12/25 11:54) gerd topiramate (From TOPAMAX) Adverse Reaction (Unknown, Verified 06/12/25 11:54) AGITATION trajenta Allergy (Severe, Uncoded 06/02/25 10:51) numbness From PLAVIX Allergy (Unknown, Uncoded 06/02/25 10:51) PT UNSURE OF REACTION Medical tape Allergy (Unknown, Uncoded 06/02/25 10:51) Rash HPI Comments Details: Alicia was seen in follow for her advanced CKD. She is known to have DM for a long time. She had a questionable allergy reaction to it and was seen in ER where her DPP4 was D/John. Her BS is fluctuant. She also has hypertension. She does not take NSAID's regularly. She denies any nausea, vomiting, diarrhea, SOB, edema, PND, orthopnea, hematuria, hearing deficits. She claims to be compliant with medications. She is not on SGLT2i. She has no sinusitis, epistaxis, photosensitivity, bone pain, sore throat , hemoptysis, skin lesions or recent antibiotic intake. Her BP at home has been at goal. [facility] Medical History Left bundle branch block Type 2 diabetes mellitus with chronic kidney disease Chronic kidney disease, stage 4 (severe) Type 2 diabetes mellitus Obesity Skin abrasion HARRIET (renal artery stenosis) Nonischemic cardiomyopathy Urinary incontinence GERD (gastroesophageal reflux disease) COVID-19 Pneumonia due to COVID-19 virus Vertigo Obesity (BMI 30-39.9) Depression Anxiety Stasis edema of both lower extremities Cardiomyopathy Pure hypercholesterolemia Hyperkalemia Renal artery stenosis Benign essential hypertension Conjunctival hemorrhage of right eye Surgical History Hx of colonoscopy Hx of myomectomy History of cataract surgery History of lumpectomy of left breast History of cholecystectomy Family History Father CVD (cardiovascular disease) Myocardial infarction Mother Myocardial infarction CVD (cardiovascular disease) Brother Myocardial infarction Family/Other FH: prostate cancer Social History Household Members: None Housing: Apartment Do you presently have visiting nurse or other home services: No Alcohol intake: never Patient Tobacco Use Status: Former Tobacco user Tobacco use type: Cigarette e-Cigarette/Vaping Use: Never Used Second Hand Smoke Exposure: No Advance Directives Date on File: 08/06/21 service: No Current occupational status: disabled Cognitive needs: No Hearing needs: No Vision needs: Yes Review of Systems Const All systems reviewed & are unremarkable except as noted in HPI and below Physical Exam Vital Signs: Last Vital Signs Pulse 65 06/12/25 11:54 BP 126/64 06/12/25 11:54 Pulse Ox 99 06/12/25 11:54 Oxygen Delivery Method Room Air 06/12/25 11:54 BMI result Body Mass Index 26.7 Const General: comfortable and no acute distress Orientation/consciousness: patient oriented x3 HEENT Head: Yes normocephalic Mouth: Normal oral and palatal mucosa present Eyes EOM: EOMs intact bilaterally Neck Neck: Yes supple Resp Auscultation: clear to auscultation bilaterally Cardio Jugular venous distension: no JVD Rate: regular rate GI Palpation (GI): Soft to palpation Auscultation: normal bowel sounds General: Yes no CVA tenderness Back/Spine/Pelvis Back: no CVA tenderness Skin General skin exam: no rashes or lesions noted Neuro General: patient oriented x3 and moves all extremities Extrem General: Yes no pedal edema Results Reviewed Nephrology Results: Sodium, (135-145) 133 mmol/L L 05/08/25 Potassium, (3.3-5.1) 4.5 mmol/L 05/08/25 Chloride, (96-108) 102 mmol/L 05/08/25 Carbon Dioxide, (22-29) 25 mmol/L 05/08/25 BUN, (9-16) 45 mg/dL H 05/08/25 Creatinine, (0.5-1.4) 2.47 mg/dL H 05/08/25 Calcium, (8.4-10.2) 9.4 mg/dL 05/08/25 Renal US 06/20/24 Assessment & Plan Assessment & Plan (1) Chronic kidney disease, stage 4 (severe): Code(s): N18.4 - Chronic kidney disease, stage 4 (severe) Category: Medical (2) Secondary hyperparathyroidism (of renal origin): Code(s): N25.81 - Secondary hyperparathyroidism of renal origin Category: Medical (3) Type 2 diabetes mellitus with chronic kidney disease: Code(s): E11.22 - Type 2 diabetes mellitus with diabetic chronic kidney disease Category: Medical Qualifiers: 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 hiv/aids care nurse insulin use: without senior care use Chronic kidney disease stage: stage 4 (severe) Qualified Code(s): E11.22 - Type 2 diabetes mellitus with diabetic chronic kidney disease; N18.4 - Chronic kidney disease, stage 4 (severe) (4) Benign essential hypertension: Code(s): I10 - Essential (primary) hypertension Category: Medical Plan BP at goal at home. 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 Based on published guidelines in J Am Abdoulaye Radiol 2013; 10(10):789-794 and J Vasc Surg. 2018; 67:2-77, the recommendation for an abdominal aorta with diameter 2.6-2.9 cm is follow-up every 5 years if the aorta that meets the criteria for AAA (>1.5 x proximal normal segment; no f/u if < 1.5 x proximal normal segment; no f/u for aorta < 2.6 cm) Has 24 hour urine for cr cl-- stable Aware about renal replacement if her renal func declines C/W Vitamin D 2000 U daily Will need activated Vitamin D soon Follow up labs ordered; F/U in 2 months Orders: Orders Electrolytes 2 Months E11.22 - Type 2 diabetes mellitus with diabetic chronic kidney disease, I10 - Essential (primary) hypertension, N18.4 - Chronic kidney disease, stage 4 (severe), N25.81 - Secondary hyperparathyroidism of renal origin Complete Blood Count Auto Diff 2 Months E11.22 - Type 2 diabetes mellitus with diabetic chronic kidney disease, I10 - Essential (primary) hypertension, N18.4 - Chronic kidney disease, stage 4 (severe), N25.81 - Secondary hyperparathyroidism of renal origin Parathyroid Hormone Intact 2 Months E11.22 - Type 2 diabetes mellitus with diabetic chronic kidney disease, I10 - Essential (primary) hypertension, N18.4 - Chronic kidney disease, stage 4 (severe), N25.81 - Secondary hyperparathyroidism of renal origin Vitamin D 25-OH Total 2 Months E11.22 - Type 2 diabetes mellitus with diabetic chronic kidney disease, I10 - Essential (primary) hypertension, N18.4 - Chronic kidney disease, stage 4 (severe), N25.81 - Secondary hyperparathyroidism of renal origin Phosphorus 2 Months E11.22 - Type 2 diabetes mellitus with diabetic chronic kidney disease, I10 - Essential (primary) hypertension, N18.4 - Chronic kidney disease, stage 4 (severe), N25.81 - Secondary hyperparathyroidism of renal origin Calcium 2 Months E11.22 - Type 2 diabetes mellitus with diabetic chronic kidney disease, I10 - Essential (primary) hypertension, N18.4 - Chronic kidney disease, stage 4 (severe), N25.81 - Secondary hyperparathyroidism of renal origin Blood Urea Nitrogen 2 Months E11.22 - Type 2 diabetes mellitus with diabetic chronic kidney disease, I10 - Essential (primary) hypertension, N18.4 - Chronic kidney disease, stage 4 (severe), N25.81 - Secondary hyperparathyroidism of renal origin Creatinine 2 Months E11.22 - Type 2 diabetes mellitus with diabetic chronic kidney disease, I10 - Essential (primary) hypertension, N18.4 - Chronic kidney disease, stage 4 (severe), N25.81 - Secondary hyperparathyroidism of renal origin Coding Level of Care Code Est Pt Level 4 (63586) Diagnoses Chronic kidney disease, stage 4 (severe) N18.4 Secondary hyperparathyroidism (of renal origin) N25.81 Type 2 diabetes mellitus with stage 4 chronic kidney disease, without long-term current use of insulin E11.; N18.4 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 hiv/aids care nurse insulin use: without hiv/aids care nurse use Chronic kidney disease stage: stage 4 (severe) Benign essential hypertension I10
[2025-06-12 11:54] VITALS: BP 126/64; PULSE 65; O2SAT 99; BMI 26.7
== END 2025-06-12 12:16 | disposition home or self-care (01) ==
LOC: HO.HKA 11:39
PROVIDERS: PCP Internal Medicine; Visit Provider Internal Medicine Nephrology
DX: I12.9 Hypertensive chronic kidney disease with stage 1 through stage 4 chronic kidney disease, or unspecified chronic kidney disease (principal); N18.4 Chronic kidney disease, stage 4 (severe); N25.81 Secondary hyperparathyroidism of renal origin; E11.22 Type 2 diabetes mellitus with diabetic chronic kidney disease
CPT/HCPCS: 99214

== ENCOUNTER → 2025-06-12 11:38 | Outpatient (BNVA) | payer OTHER, SELFPAY | PROVIDERS: PCP Internal Medicine; Visit Provider Internal Medicine Nephrology | DX: N18.4 Chronic kidney disease, stage 4 (severe) (principal); N25.81 Secondary hyperparathyroidism of renal origin; E11.22 Type 2 diabetes mellitus with diabetic chronic kidney disease; I10 Essential (primary) hypertension | CPT/HCPCS: 99212 ==

== ENCOUNTER 2025-06-13 08:29 | Outpatient (REF) | payer OTHER, SELFPAY ==
[2025-06-13 08:56] LABS: MANUAL DIFF FLAG NO
[2025-06-13 09:51] LABS: Hematocrit 39.4 % (37.0-47.0); Hemoglobin 12.7 g/dl (12.0-16.0); Imm Gran Abs Auto 0.03 X10*3/uL (0.00-0.03); Imm Gran Pct Auto 0.5 % (0.0-0.4); Lymphocytes Absolute Auto 1.1 X10*3/uL (1.2-4.9); Mean Corpuscular HGB Conc 32.2 g/dl (31.0-35.0); Mean Corpuscular Hemoglobin 30.4 pg (27.0-33.0); Mean Corpuscular Volume 94.3 fL (80.0-98.0); NRBC Abs Auto 0.000 X10*3/uL (0.0-0.012); NRBC Pct Auto 0.0 /100WBC (0.0-0.2); Platelet Count 210 X10*3/uL (160-400); Red Blood Count 4.18 X10*6/uL (4.20-5.50); White Blood Count 6.0 X10*3/uL (4.8-10.8)
[2025-06-13 10:07] LABS: Hemoglobin A1C 252.1271 umol/L; Total Hemoglobin (HGBA1C) 3371.5642 umol/L
[2025-06-13 10:37] LABS: Appearance Urine Clear; Glucose Urine UA Negative (Negative); PH 5.5 (5.0-9.0); Specific Gravity - Urine 1.010 (1.005-1.025); UMIC TRIGGER UACC YES
[2025-06-13 10:46] LABS: Parathyroid Hormone Intact 173.4 pg/mL (8.7-77.1)
[2025-06-13 11:19] LABS: Blood Urea Nitrogen 43 mg/dL (9-16); Calcium 10.2 mg/dL (8.4-10.2)
[2025-06-13 11:22] LABS: Microalbum/Creatinine Ratio Ur 45.6 ug/mg cr (<30)
[2025-06-13 11:34] LABS: Alanine Aminotransferase 23 U/L (0-31); Albumin Level 4.8 g/dL (3.5-5.0); Alkaline Phosphatase 141 U/L (39-117); Anion Gap 15 (12-20); Aspartate Amino Transferase 33 U/L (5-31); Blood Urea Nitrogen 43 mg/dL (9-16); Calcium 10.4 mg/dL (8.4-10.2); Carbon Dioxide 24 mmol/L (22-29); Chloride 104 mmol/L (96-108); Cholesterol 142 mg/dL (<200); Estimated Glomerular Filt Rate 18; Potassium 4.8 mmol/L (3.3-5.1); Sodium 138 mmol/L (135-145); Total Protein 8.0 g/dL (6.5-8.0); Triglycerides 89 mg/dL (<150)
[2025-06-13 11:53] LABS: Folate 14.7 ng/mL (> or = 4.0); Vitamin B12 989 pg/mL (200-900)
[2025-06-13 12:15] LABS: HDL Cholesterol 50 mg/dL (>40)
== END 2025-06-13 08:30 | disposition home or self-care (01) ==
LOC: HO.LAB 08:29
PROVIDERS: Internal Medicine Nephrology; PCP Internal Medicine; Visit Provider Internal Medicine
DX: E11.22 Type 2 diabetes mellitus with diabetic chronic kidney disease (principal); N18.4 Chronic kidney disease, stage 4 (severe); E78.00 Pure hypercholesterolemia, unspecified; D64.9 Anemia, unspecified; E55.9 Vitamin D deficiency, unspecified; E53.8 Deficiency of other specified B group vitamins; I15.0 Renovascular hypertension; N25.81 Secondary hyperparathyroidism of renal origin
CPT/HCPCS: 36415; 80053; 80061; 81001; 82043; 82306; 82310; 82570; 82607; 82746; 83036; 83970; 84443; 84520; 85025

== ENCOUNTER 2025-06-17 13:24 | Outpatient (AMB) | payer OTHER, SELFPAY ==
--- OUTSIDE RECORDS SUMMARY | 2025-02-18 07:30 | XMS_ITS ---
Author Organization [facility] Address [address] [place] [address] Care Team Providers Care Vascular Technologist Sonographer Name Role Phone Rizwan SORENSON, Boaz Primary Care Provider UnaYarely White Unavailable [phone] Encounters Encounter Location Date Provider Diagnosis [address] [address] 02/18/2025 Yarely Gibbs Plan Of Treatment Next Appt Details Provider Name:Yarely puckett, 07/07/2025 03:00:00 PM, [address] [place] [address], [address], Progress Notes * Alicia DUONGDOB:1945 (79 yo F)Acc No.[id number]:02/18/2025 Progress Note Patient: Alicia ROQUE Provider: Jarad Gibbs DPM :1945 A ge:79 Y S ex:Female Date:02/18/2025 Address:[address] [facility] [address], [place], [place] Pcp:Boaz Astorga MD Subjective: * Chief Complaints: [...] 02/18/2025 Generated for Mary Ann baca/Suzy/Jonathonitting on: 0 06/17/2025 02:15 PM EDT
--- NOTE | 2025-06-17 13:32 | MHC.PC.OV ---
Vital Signs 06/17/25 13:33 Height 5 ft Weight 138 lb 0.15 oz BMI 27.0 BP 128/76 Blood Pressure Location Rt brachial Position Sitting Pulse 60 Pulse Source Pulse Oximeter Temp 97.1 F Temp Source Temporal Artery Scan Pulse Oximetry (%) 99 Oxygen Delivery Method Room Air Intake Visit Reasons: DM, CKD, hyperlipidemia, HTN Allergies aspirin (Aspirin) Allergy (Severe, Verified 06/17/25 14:04) MOUTH SWELLING hydrochlorothiazide (Hydrochlorothiazide) Allergy (Intermediate, Verified 06/17/25 14:04) DROP IN BLOOD PRESSURE Penicillins (PENICILLINS) Allergy (Intermediate, Verified 06/17/25 14:04) ITCHING caffeine (Caffeine) Allergy (Mild, Verified 06/17/25 14:04) NERVOUSNESS lisinopril (Lisinopril) Allergy (Mild, Verified 06/17/25 14:04) CHANGES IN BLOOD PRESSURE ranitidine (RANITIDINE) Allergy (Mild, Verified 06/17/25 14:04) HEADACHE amlodipine (AMLODIPINE) Allergy (Unknown, Verified 06/17/25 14:04) UNKNOWN amoxicillin Allergy (Unknown, Verified 06/17/25 14:04) itching, severe with rash diclofenac Allergy (Unknown, Verified 06/17/25 14:04) Unknown escitalopram Allergy (Unknown, Verified 06/17/25 14:04) abdominal discomfort, drowsiness esomeprazole (Nexium) Allergy (Unknown, Verified 06/17/25 14:04) Unknown isosorbide (ISOSORBIDE) Allergy (Unknown, Verified 06/17/25 14:04) UNKNOWN lidocaine (Lidoderm) Allergy (Unknown, Verified 06/17/25 14:04) weakness mirtazapine Allergy (Unknown, Verified 06/17/25 14:04) Unknown nystatin Allergy (Unknown, Verified 06/17/25 14:04) rash sertraline (SERTRALINE) Allergy (Unknown, Verified 06/17/25 14:04) UNKNOWN dexlansoprazole (From DEXILANT) Adverse Reaction (Severe, Verified 06/17/25 14:04) AGITATION hydrocortisone (From Cortizone-10) Adverse Reaction (Mild, Verified 06/17/25 14:04) RAISES BLOOD SUGAR semaglutide (From Ozempic) Adverse Reaction (Mild, Verified 06/17/25 14:04) gerd topiramate (From TOPAMAX) Adverse Reaction (Unknown, Verified 06/17/25 14:04) AGITATION trajenta Allergy (Severe, Uncoded 06/17/25 14:04) numbness From PLAVIX Allergy (Unknown, Uncoded 06/17/25 14:04) PT UNSURE OF REACTION Medical tape Allergy (Unknown, Uncoded 06/17/25 14:04) Rash Medication List - Last Reconciled 06/17/25 by Boaz Astorga MD acetaminophen (Tylenol Extra Strength) 500 mg PO .TWICE A DAY PRN alprazolam 0.5 mg PO BID PRN blood sugar diagnostic ([employer] Ultra Test strips) USE DIRECTED TO TEST BLOOD SUGAR three TIMES DAILY buspirone 7.5 mg PO DAILY carvedilol 6.25 mg PO BID 90 days cholecalciferol (vitamin D3) 50 mcg PO DAILY ciclopirox 0.77% appl topical BID clotrimazole-betamethasone 1-0.05 % 1 appl topical BID PRN compr.stocking,knee,long,large As directed [gloves As directed] [incontinent liners As directed] lancets ([employer] Delica Plus Lancet) USE FOUR TIMES DAILY Lantus Solostar U-100 Insulin (insulin glargine) subcutaneously every morning; 6 units 30 days NS methylcellulose (laxative) (Citrucel) 500 mg PO DAILY multivit with min-folic acid 200 mcg (Adult Multivitamin Gummies) 1 tab PO DAILY pantoprazole 40 mg PO DAILY 90 days pen needle, diabetic bid NS propylene glycol 0.6% (Systane Balance) 1 drp ophthalmic (eye) BID PRN rosuvastatin 40 mg PO DAILY 90 days sennosides 17.2 mg (2 x 8.6 mg) PO DAILY spironolactone 25 mg PO DAILY Tobacco use date assessed: 06/17/25 Fall risk assessment: No Falls in past year Last assessed Fall Risk: 06/17/25 Dental Screening Dental Screen Date: 06/17/25 Did you have a dental visit in the last 12 months?: Yes Did you have a dental problem in the last 6 months where you did not have access to dental care?: No Was dental information given to patient?: Patient has dentist HPI DM, CKD, hyperlipidemia, HTN HPI Details Patient comes in today for her follow up visit States that she feels okay She denies any headaches or dizziness Denies any chest pains, no increased SOB No nausea/vomiting, no abdominal pain No change in bowel habits noted Needs her glucometer test strips and lancets Rx refilled She had her follow up labs done a few days ago - to discuss her results [facility] Medical History (Updated 06/21/25 @ 08:32 by Boaz Astorga MD) Hyperparathyroidism Left bundle branch block Type 2 diabetes mellitus with chronic kidney disease Chronic kidney disease, stage 4 (severe) Type 2 diabetes mellitus Obesity Skin abrasion HARRIET (renal artery stenosis) Nonischemic cardiomyopathy Urinary incontinence GERD (gastroesophageal reflux disease) COVID-19 Pneumonia due to COVID-19 virus Vertigo Obesity (BMI 30-39.9) Depression Anxiety Stasis edema of both lower extremities Cardiomyopathy Pure hypercholesterolemia Hyperkalemia Renal artery stenosis Benign essential hypertension Conjunctival hemorrhage of right eye Surgical History Hx of colonoscopy Hx of myomectomy History of cataract surgery History of lumpectomy of left breast History of cholecystectomy Family History Father CVD (cardiovascular disease) Myocardial infarction Mother Myocardial infarction CVD (cardiovascular disease) Brother Myocardial infarction Family/Other FH: prostate cancer Social History Household Members: None Housing: Apartment Do you presently have visiting nurse or other home services: No Alcohol intake: never Patient Tobacco Use Status: Former Tobacco user Tobacco use type: Cigarette e-Cigarette/Vaping Use: Never Used Second Hand Smoke Exposure: No Advance Directives Date on File: 08/06/21 service: No Current occupational status: disabled Cognitive needs: No Hearing needs: No Vision needs: Yes Questionnaire PHQ-9 Over the last 2 weeks, how often have you been bothered by any of the following problems? 1. Little interest or pleasure in doing things: not at all 2. Feeling down, depressed, or hopeless: several days 3. Trouble falling or staying asleep, or sleeping too much: several days 4. Feeling tired or having little energy: more than half the days 5. Poor appetite or overeating: more than half the days 6. Feeling bad about yourself - or that you are a failure or have let yourself or your family down: not at all 7. Trouble concentrating on things, such as reading the newspaper or watching television: not at all 8. Moving or speaking so slowly that other people could have noticed. Or the opposite - being so fidgety or restless that you have been moving around a lot more than usual: not at all 9. Thoughts that you would be better off or of hurting yourself in some way: not at all Total score: 6 Depression Screening Interpretation: Positive Depression Screening Follow-up: Existing condition and In treatment Depression Screening Done: Yes 32906 - PHQ-9 Billing: Yes Source: Developed by Drs. Kayden Gonzalez, Alka Silver, Harjit Rush and colleagues, with an educational vlad from Android App Review Source. Thrive Questionnaire Date Thrive assessed: 02/18/25 I am a: Patient What is your living situation today?: I have a steady place to live Within the past 12 months, did the food you bought not last and you didn't have the money to get more?: Never true Within the past 12 months, did you worry whether your food would run out before you got money to buy more?: Never true Do you have trouble paying for medicines?: No Do you have trouble getting transportation to medical appointments?: Yes Do you have trouble paying your heating and electricity bill?: No Do you have trouble taking care of your child, family member or friend?: No Do you have trouble with day-to-day activities such as bathing, preparing meals, shopping, managing finances, etc.?: No Are you currently unemployed and looking for a job?: Yes Are you interested in more education?: No Please select the resources that you would like help with: None Currently or been in a relationship where the following occur: No concerns reported THRIVE Score: 1 AUDIT C Alcohol Use Questionnaire (AUDIT-C) 1. How often do you have a drink containing alcohol?: Never 3. How often do you have six or more drinks on one occasion?: Never Total Score: 0 Score Reviewed/Action Taken: Yes VIKRAM-7 AMB Questionnaire VIKRAM-7 Date VIKRAM - 7 assessed: 02/18/25 Feeling nervous, anxious, or on edge: 1 = Several days Not being able to stop or control worryin = Several days Worrying too much about different things: 1 = Several days Trouble relaxin = Several days Being so restless that it is hard to sit still: 1 = Several days Becoming easily annoyed or irritable: 1 = Several days Feeling afraid as if something awful might happen: 1 = Several days Total VIKRAM-7 score (0-4 normal; 5-9 mild; 10-14 moderate; 15-21 severe): 7 Source: Developed by Drs. Kayden Gonzalez, Alka Silver, Harjit Rush and colleagues, with an educational vlad from Android App Review Source. Review of Systems Const Denies chills, Reports fatigue, Denies fever(s) and Denies headache(s) ENT Denies dysphagia, Denies dizziness, Denies otalgia, Denies headache(s), Denies neck pain, Denies odynophagia and Denies sore throat Card Denies chest pain, Denies palpitations and Denies dyspnea Resp Denies chest congestion, Denies cough and Denies dyspnea GI Denies abdominal pain, Denies constipation, Denies dysphagia, Denies heartburn, Denies diarrhea, Denies nausea, Denies odynophagia and Denies vomiting Denies difficulty voiding, Denies nocturia, Denies dysuria, Reports urinary incontinence and Denies urinary urgency Musc Denies back pain and Denies neck pain Skin/Breast Denies rash Neuro Denies dizziness and Denies headache(s) Psych Reports anxiety Endo Reports fatigue and Denies palpitations Physical exam (Primary Care) Vital Signs: Last Vital Signs Temp 97.1 F 06/17/25 13:33 Pulse 60 06/17/25 13:33 BP 128/76 06/17/25 13:33 Pulse Ox 99 06/17/25 13:33 Oxygen Delivery Method Room Air 06/17/25 13:33 BMI result Body Mass Index 27.0 Tobacco/Smoking Status: Tobacco use Status Tobacco use date assessed 06/17/25 06/17/25 13:40 Patient Tobacco Use Status Former Tobacco user 06/17/25 13:40 Tobacco use type Cigarette 06/17/25 13:40 e-Cigarette/Vaping Use Never Used 06/17/25 13:40 PHQ-9: PHQ-9 Score PHQ-9: Total score 6 06/21/25 03:36 Depression Screening Interpretation: Positive Depression Screening Follow-up: Existing condition and In treatment Thrive Assessment: Date of Thrive Assessment Date Thrive assessed 02/18/25 06/17/25 13:40 Currently or been in a relationship where the following occur: No concerns reported Const General: no acute distress and alert HENMT Ears: TM's normal bilaterally and EAC's normal Throat: Yes posterior oropharynx normal and Yes tonsils normal (no TP congestion noted) Neck Neck: Yes supple and No lymphadenopathy Thyroid: Thyroid normal Resp Auscultation: clear to auscultation bilaterally, no rales and no wheezes Cardio Rate: regular rate Rhythm: regular rhythm Heart sounds: no murmurs GI Palpation (GI): Soft to palpation and nontender Auscultation: normal bowel sounds General: Yes no CVA tenderness Back/Spine/Pelvis Back: no CVA tenderness Thoracic/Lumbar Spine: No lumbar spinal tenderness Skin Rashes: no rashes Extrem General: Yes no clubbing, cyanosis or edema Results Reviewed Results Reviewed: Laboratory Tests 04/22/25 06/13/25 06/13/25 11:44 08:47 08:48 WBC 6.0 Hgb 12.7 Hct 39.4 Plt Count 210 Sodium 138 Potassium 4.8 Creatinine 2.62 H Estimated GFR 18 Fasting Glucose 132 H Hgb A1c (Clinic) 8.9 H Hemoglobin A1c % 9.0 H Calcium 10.4 H D AST 33 H ALT 23 Albumin 4.8 Triglycerides 89 Cholesterol 142 LDL Cholesterol, Calc 75 HDL Cholesterol 50 Vitamin B12 989 H 25-OH Vitamin D Total 54.5 TSH 2.56 PTH Intact 173.4 H Ur Specific [employer] 1.010 Urine Protein Trace Urine Glucose (UA) Negative Urine Blood Trace H Urine Nitrite Negative Ur Leukocyte Esterase Trace H Microalb/Creat Ratio 45.6 H Coding Level of Care Code Est Pt Level 4 (61436) Diagnoses Benign essential hypertension I10 Cardiomyopathy, unspecified type I42.9 Cardiomyopathy type: unspecified Renal artery stenosis I70.1 Chronic kidney disease, stage 4 (severe) N18.4 Hyperparathyroidism E21.3 Type 2 diabetes mellitus with stage 4 chronic kidney disease, without long-term current use of insulin E11.22; N18.4 Chronic kidney disease stage: stage 4 (severe) 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 assisted insulin use: without assisted use Pure hypercholesterolemia E78.00 Elevated TSH R79.89 Gastroesophageal reflux disease, unspecified whether esophagitis present K21.9 Esophagitis presence: esophagitis presence not specified Anxiety F41.9 Depression, unspecified depression type F32.9 Depression Type: unspecified Obesity (BMI 30-39.9) E66.9 Additional Codes PHQ-9 - 29636 - PHQ-9 Billing: Yes ([id number]) Assessment & Plan Assessment & Plan (1) Benign essential hypertension: Code(s): I10 - Essential (primary) hypertension Category: Medical Plan: Reinforced low sodium diet - goal is systolic BP of at least 130 to 140 mm or less Continue Carvedilol 6.25 mg BID and Spironolactone 25 mg Q HS Her Losartan was discontinued previously and she has been advised NOT to start back on this due to her advanced CKD Follow up with cardiology as scheduled (2) Cardiomyopathy: Code(s): I42.9 - Cardiomyopathy, unspecified Category: Medical Qualifiers: Cardiomyopathy type: unspecified Qualified Code(s): I42.9 - Cardiomyopathy, unspecified Plan: Continue Carvedilol 6.25 mg BID Patient had a stress test and nuclear MIBI done at [facility] a couple of years ago - both tests came back normal BNP also came back normal when previously checked Follow up with cardiology as scheduled (3) Renal artery stenosis: Code(s): I70.1 - Atherosclerosis of renal artery Category: Medical Plan: She has left HARRIET (seen on renal artery doppler) and will be considered for renal angioplasty if necessary, although a more recent renal US done in May 2024 revealed no HARRIET Her BP appears to have improved a lot with the addition of Spironolactone Will continue to observe and monitor her blood pressure regularly for now Follow up with nephrology (Dr. Madrigal) as scheduled (4) Chronic kidney disease, stage 4 (severe): Code(s): N18.4 - Chronic kidney disease, stage 4 (severe) Category: Medical Plan: Patient's serum creatinine and GFR/renal function again appear mostly stable on her recent labs - will continue to monitor her GFR and serum creatinine closely Follow up with nephrology (Dr. Madrigal) as scheduled - nephrology has recommended adding an SGLT-2 inhibitor when appropriate; Metformin has since been discontinued Patient used to see [facility] but has now been switched over to [facility] Endocr[facility]ology for management of her diabetes for better continuity of care as we were having a hard time getting her reports from [facility] in a timely manner before (5) Hyperparathyroidism: Code(s): E21.3 - Hyperparathyroidism, unspecified Category: Medical Plan: Her intact PTH level was significantly elevated at 173.4 pg/ml on her recent labs Follow up with nephrology as scheduled (6) Type 2 diabetes mellitus with chronic kidney disease: Code(s): E11.22 - Type 2 diabetes mellitus with diabetic chronic kidney disease Category: Medical Qualifiers: Chronic kidney disease stage: stage 4 (severe) 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 assisted insulin use: without assisted use Qualified Code(s): E11.22 - Type 2 diabetes mellitus with diabetic chronic kidney disease; N18.4 - Chronic kidney disease, stage 4 (severe) Plan: Her HgbA1c was at 9.0% on her labs done a few days ago (in-office HgbA1c was at 8.9% at the endocrinology office early last month) - goal is at least <7.5% She is advised that her numbers are still above goal Reinforced diabetic diet Continue Tradjenta 5 mg QD, Acarbose 25 mg QD and Lantus 6 units Q HS Her Metformin ER 500 mg QD has been discontinued due to her advanced CKD; Glimepiride 1 mg Q AM and Januvia were also previously stopped due to hypoglycemia She was also taken off Ozempic as she was reportedly losing too much weight while on the medication Nephrology recommended adding an SGLT-2 inhibitor and will consider starting patient on this at her next follow up visit if appropriate Follow up with [facility] Endocrinology as scheduled - has appointment coming up next week (7) Pure hypercholesterolemia: Code(s): E78.00 - Pure hypercholesterolemia, unspecified Category: Medical Plan: Results of her labs done a few days ago reviewed and discussed with patient Reinforced low cholesterol diet Continue Rosuvastatin 40 mg QD Will recheck her labs and fasting lipids in 3 months for follow up (8) Elevated TSH: Code(s): R79.89 - Other specified abnormal findings of blood chemistry Category: Medical Plan: Her TSH remains normal on her recent labs Her free T4 and T3 levels were normal and TPO Ab level was high when previously checked, suggesting possible Pb's Patient currently appears clinically euthyroid Will continue to monitor her TFTs regularly (9) GERD (gastroesophageal reflux disease): Code(s): K21.9 - Gastro-esophageal reflux disease without esophagitis Category: Medical Qualifiers: Esophagitis presence: esophagitis presence not specified Qualified Code(s): K21.9 - Gastro-esophageal reflux disease without esophagitis Plan: Dietary restrictions reinforced Continue Pantoprazole 20 mg QD - dose was lowered by GI recently Follow up with GI as scheduled (10) Anxiety: Code(s): F41.9 - Anxiety disorder, unspecified Category: Medical Plan: Continue Buspirone 7.5 mg QD and Alprazolam 0.5 mg BID PRN Follow up with psychiatry as scheduled (11) Depression: Code(s): F32.9 - Major depressive disorder, single episode, unspecified Category: Medical Qualifiers: Depression Type: unspecified Qualified Code(s): F32.9 - Major depressive disorder, single episode, unspecified Plan: Follow up with psychiatry as scheduled - patient goes to [facility] (12) Obesity (BMI 30-39.9): Code(s): E66.9 - Obesity, unspecified Category: Medical Plan: Reinforced diet; exercise and weight loss are unrealistic given patient's multiple comorbidities and limited activity tolerance as well as her gait instability Plan Follow up in 3 months Orders: Orders Complete Blood Count Auto Diff 3 Months D64.9 - Anemia, unspecified Lipid Panel 3 Months E78.00 - Pure hypercholesterolemia, unspecified Hemoglobin A1c 3 Months E11.9 - Type 2 diabetes mellitus without complications UA CC w/rflx Micro + Cult 3 Months R30.0 - Dysuria Vitamin D 25-OH Total 3 Months E55.9 - Vitamin D deficiency, unspecified Comprehensive [place]. Panel Fast 3 Months E78.00 - Pure hypercholesterolemia, unspecified Microalbumin, Random (w Creat) 3 Months E11.9 - Type 2 diabetes mellitus without complications TSH reflex Free T4 3 Months E78.00 - Pure hypercholesterolemia, unspecified Medications: Changed From blood sugar diagnostic ([employer] Ultra Test strips) USE DIRECTED TO TEST BLOOD SUGAR three TIMES DAILY 100 strips 12RF E11.9 - Type 2 diabetes mellitus without complications To blood sugar diagnostic ([employer] Ultra Test strips) USE DIRECTED TO TEST BLOOD SUGAR FOUR TIMES DAILY 100 strips 12RF E11.9 - Type 2 diabetes mellitus without complications Refilled lancets ([employer] Delica Plus Lancet) USE FOUR TIMES DAILY 200 ea 12RF E11.9 - Type 2 diabetes mellitus without complications
[2025-06-17 13:33] VITALS: BP 128/76; PULSE 60; TEMP 36.2; O2SAT 99; BMI 27.0
--- OUTSIDE RECORDS SUMMARY | 2025-06-17 14:14 | XMS_ITS | Clinical Summary ---
Author Organization [facility] Address [address] [place] [address] Phone Care Team Providers Care Airline Stewardess Name Role Phone Boaz Astorga MD Primary Care Provider [phone] Allergies Active Allergy Reactions Criticality Noted Date [...] age to complete this topic Insurance Lida [employer] [facility] ([id number]) Mcbrides [employer] [facility] ([id number]) Care Teams Airline Stewardess Relationship Specialty Start Date End Date Boaz Astorga MD [address] [place] [address] PCP - General 11/01/20
--- OUTSIDE RECORDS SUMMARY | 2025-06-17 14:15 | XMS_ITS | Patient Health Record ---
Author Organization [facility] Address [address] [place] [address] Care Team Providers Care Battery Tester Name Role Phone Robel Astorga MDh Primary Care Provider Yarely Medina Unavailable [phone] Allergies Allergen (clinical drug ingredient) Drug/Non Drug [...] peripheral angiopathy without gangrene (E11.51) Diagnosis 2 Other hammer toe(s) (acquired), right foot (M20.41) Diagnosis 3 Other hammer toe(s) (acquired), left foot (M20.42) Diagnosis 4 Tinea unguium (B35.1 ) Diagnosis 5 Pain in left toe(s) (M79.675) Diagnosis 6 Pain in right toe(s) (M79.674) Diagnosis 7 Tinea pedis (B35.3) Diagnosis 8 Abrasion, left foot, initial encounter (S90.812A) Diagnosis 9 Xerosis cutis (L85.3 ) Diagnosis 10 Cellulitis of left f oot (L03.116) Diagnosis 11 Abrasion, left foot, subsequent encounter (S90.812D) Diagnosis 12 Contusion of left le sser toe(s) without damage to nail, initial encounter (S90.122A) Diagnosis 13 Contusion of left fo ot, subsequent encounter (S90.32XD) Referring Provider First Name Boaz Referring Provider Last Name Rizwan Referred [facility] Referred Provider Yarely Gibbs Referred Address [address] [place], [place],[address], Referred Provider Specialty Podiatry Referral Priority Routine [...] a day; Duration: 30 day(s) Active Nystatin 937201 UNIT/GM 1 application Externally Twice a day [...] Problem Acquired hammer toe of right foot ([id number] 9105) Other hammer toe(s) (acquired), right foot (M20.41) Active confirmed Problem Type 2 diabetes mellitus with diabetic peripheral angiopathy without gangrene (E11.51) Active confirmed Problem Acquired hammer toe of left foot ([id number] 9103) Other hammer toe(s) (acquired), left foot (M20.42) Active confirmed Vital Signs Blood pressure diastolic 71 mm Hg 04/14/2025 Height 5 ft in 04/14/2025 Blood pressure systolic 146 mm Hg 04/14/2025 Weight 136 lbs 04/14/2025 BMI 26.56 kg/m2 04/14/2025 Encounters Encounter Location Date Provider Diagnosis [address] [address] 07/09/2024 Yarely Perica Tinea pedis of both feet B35.3 ; Type 2 diabetes mellitus with diabetic peripheral angiopathy without gangrene E11.51 ; Tinea unguium B35.1 ; Pain in left toe(s) M79.675 and Pain in right toe(s) M79.[address] [address] 09/17/2024 Yarely Perica Tinea pedis of both feet B35.3 ; Type 2 diabetes mellitus with diabetic peripheral angiopathy without gangrene E11.51 ; Tinea unguium B35.1 ; Pain in left toe(s) M79.675 ; Pain in right toe(s) M79.674 and Xerosis cutis L85.[address] [address] 01/21/2025 Yarely Perica Tinea pedis of both feet B35.3 ; Other hammer toe(s) (acquired), right foot M20.41 ; Type 2 diabetes mellitus with diabetic peripheral angiopathy without gangrene E11.51 ; Tinea unguium B35.1 ; Pain in left toe(s) M79.675 ; Pain in right toe(s) M79.674 ; Xerosis cutis L85.3 and Other hammer toe(s) (acquired), left foot M20.42 [facility] [address] [address] 04/14/2025 Yarely Gibbs Type 2 diabetes mellitus with diabetic peripheral angiopathy without gangrene E11.51 ; Tinea unguium B35.1 ; Pain in left toe(s) M79.675 and Pain in right toe(s) M79.[address] [facility] [address] 07/02/2024 Yarely Gibbs [facility] [address] 12/02/2024 Yarely Gibbs [facility] [address] 01/21/2025 Yarely Gibbs Assessments Encounter Date Diagnosis [...] Provider Name:Yarely puckett, 07/07/2025 03:00:00 PM, [address] [place], [address], Insurance Providers Payer Name Payer Address Payer Phone Subscriber Number Group Number Insured Name Patient Relationship to Insured Coverage Start Date Coverage End Date [facility] [address] [place] [phone] [id number] Alicia Noel Self - patient is the [...]
== END 2025-06-17 14:18 | disposition home or self-care (01) ==
LOC: HO.HMCH 13:25
PROVIDERS: PCP Internal Medicine; Visit Provider Internal Medicine
DX: I12.9 Hypertensive chronic kidney disease with stage 1 through stage 4 chronic kidney disease, or unspecified chronic kidney disease (principal); E11.22 Type 2 diabetes mellitus with diabetic chronic kidney disease; N18.4 Chronic kidney disease, stage 4 (severe); I42.9 Cardiomyopathy, unspecified; I70.1 Atherosclerosis of renal artery; E21.3 Hyperparathyroidism, unspecified; E78.00 Pure hypercholesterolemia, unspecified; R79.89 Other specified abnormal findings of blood chemistry; K21.9 Gastro-esophageal reflux disease without esophagitis; F41.9 Anxiety disorder, unspecified; F32.9 Major depressive disorder, single episode, unspecified; E66.9 Obesity, unspecified

== ENCOUNTER → 2025-06-17 13:24 | Outpatient (BNVA) | payer OTHER, SELFPAY | PROVIDERS: PCP Internal Medicine; Visit Provider Internal Medicine | DX: E11.22 Type 2 diabetes mellitus with diabetic chronic kidney disease (principal); I12.9 Hypertensive chronic kidney disease with stage 1 through stage 4 chronic kidney disease, or unspecified chronic kidney disease; I42.9 Cardiomyopathy, unspecified; N18.4 Chronic kidney disease, stage 4 (severe); I70.1 Atherosclerosis of renal artery; E21.3 Hyperparathyroidism, unspecified; E78.00 Pure hypercholesterolemia, unspecified; R79.89 Other specified abnormal findings of blood chemistry; K21.9 Gastro-esophageal reflux disease without esophagitis; F41.9 Anxiety disorder, unspecified; F39 Unspecified mood [affective] disorder; E66.9 Obesity, unspecified; Z68.27 Body mass index [BMI] 27.0-27.9, adult | CPT/HCPCS: 96127; 99212 ==

== ENCOUNTER 2025-06-26 10:34 | Outpatient (AMB) | payer OTHER, SELFPAY ==
--- OUTSIDE RECORDS SUMMARY | 2024-12-02 10:00 | XMS_ITS ---
Author Organization [facility] Address [address] [facility] [place] [address] Care Team Providers Care Sign Builder Name Role Phone Rizwan SORENSON, Boaz Primary Care Provider Yarely Medina Unavailable [phone] Medications Medication SIG (Take, Route, Frequency, Duration) [...] day; Duration: 30 days 06/06/2023 Active Nystatin 315905 UNIT/GM 1 application Externally Twice a day [...] Active Encounters Encounter Location Date Provider Diagnosis [facility] [address] [address] 12/02/2024 Yarely Gibbs Plan Of Treatment Next Appt Details Provider Name:Yarely puckett, 07/07/2025 03:00:00 PM, [address] [place] [address], [phone], Progress Notes * Alicia DUONGDOB:1945 (79 yo F)Acc No.[id number]:12/02/2024 Progress Note Patient: Alicia ROQUE Provider: Jarad Gibbs DPM :1945 A ge:79 Y S ex:Female Date:12/02/2024 Address:[address] [place], [place] [phone] Pcp:Boaz Astorga MD Subjective: * Chief Complaints: [...] needed Twice a day , Not-Taking/PRN Nystatin 044049 UNIT/GM Cream 1 application Externally Twice a [...] 12/02/2024 Generated for Mary Ann Carbone on: 0 06/26/2025 11:34 AM EDT History and Physical Notes * HPI (History of Present Illness) Category Sub-Category Detail Notes Category Not es At Risk footcare Pt States Last PCP Visit: Date: 4
--- OUTSIDE RECORDS SUMMARY | 2025-02-18 07:30 | XMS_ITS ---
Author Organization [facility] Address [address] [place] [address] Care Team Providers Care Crayon Sorting Machine Feeder Name Role Phone Rizwan SORENSON, Boaz Primary Care Provider UnaYarely White Unavailable [phone] Encounters Encounter Location Date Provider Diagnosis [address] [address] 02/18/2025 Yarely Gibbs Plan Of Treatment Next Appt Details Provider Name:Yarely puckett, 07/07/2025 03:00:00 PM, [address] [place] [address], [address], Progress Notes * Alicia DUONGDOB:1945 (79 yo F)Acc No.[id number]:02/18/2025 Progress Note Patient: Alicia ROQUE Provider: Jarad Gibbs DPM :1945 A ge:79 Y S ex:Female Date:02/18/2025 Address:[address] [facility] [address], [place], [place] Pcp:Boaz Astorga MD Subjective: * Chief Complaints: [...] Generated for Mary Ann baca/Suzy/Jonathonitting on: 0 06/26/2025 11:35 AM EDT
--- NOTE | 2025-06-26 10:40 | MHC.OFFVIS ---
Vital Signs 06/26/25 10:43 Height 5 ft Weight 138 lb 0.15 oz BMI 27.0 BP 154/78 H Blood Pressure Location Rt brachial Position Sitting Pulse 68 Pulse Source Pulse Oximeter Pulse Oximetry (%) 97 Oxygen Delivery Method Room Air Intake Visit Reasons: T2DM Intake Note: Patient present today to follow up on Type 2 Diabetes Mellitus. Last seen by Tammy Flower on 04/22/2025. Last Diabetic Eye exam: 04/03/2025 [facility] Last Podiatry Visit: Does not see a Branch Customer Service Representative Random Glucose: 237 mg/dl Hgb A1C: 8.9% 04/22/2025 Aircraft Time Clerk Required: No Accompanied by: Self / Same As Patient Allergies aspirin (Aspirin) Allergy (Severe, Verified 06/26/25 10:44) MOUTH SWELLING hydrochlorothiazide (Hydrochlorothiazide) Allergy (Intermediate, Verified 06/26/25 10:44) DROP IN BLOOD PRESSURE Penicillins (PENICILLINS) Allergy (Intermediate, Verified 06/26/25 10:44) ITCHING caffeine (Caffeine) Allergy (Mild, Verified 06/26/25 10:44) NERVOUSNESS lisinopril (Lisinopril) Allergy (Mild, Verified 06/26/25 10:44) CHANGES IN BLOOD PRESSURE ranitidine (RANITIDINE) Allergy (Mild, Verified 06/26/25 10:44) HEADACHE amlodipine (AMLODIPINE) Allergy (Unknown, Verified 06/26/25 10:44) UNKNOWN amoxicillin Allergy (Unknown, Verified 06/26/25 10:44) itching, severe with rash diclofenac Allergy (Unknown, Verified 06/26/25 10:44) Unknown escitalopram Allergy (Unknown, Verified 06/26/25 10:44) abdominal discomfort, drowsiness esomeprazole (Nexium) Allergy (Unknown, Verified 06/26/25 10:44) Unknown isosorbide (ISOSORBIDE) Allergy (Unknown, Verified 06/26/25 10:44) UNKNOWN lidocaine (Lidoderm) Allergy (Unknown, Verified 06/26/25 10:44) weakness mirtazapine Allergy (Unknown, Verified 06/26/25 10:44) Unknown nystatin Allergy (Unknown, Verified 06/26/25 10:44) rash sertraline (SERTRALINE) Allergy (Unknown, Verified 06/26/25 10:44) UNKNOWN dexlansoprazole (From DEXILANT) Adverse Reaction (Severe, Verified 06/26/25 10:44) AGITATION hydrocortisone (From Cortizone-10) Adverse Reaction (Mild, Verified 06/26/25 10:44) RAISES BLOOD SUGAR semaglutide (From Ozempic) Adverse Reaction (Mild, Verified 06/26/25 10:44) gerd topiramate (From TOPAMAX) Adverse Reaction (Unknown, Verified 06/26/25 10:44) AGITATION trajenta Allergy (Severe, Uncoded 06/26/25 10:44) numbness From PLAVIX Allergy (Unknown, Uncoded 06/26/25 10:44) PT UNSURE OF REACTION Medical tape Allergy (Unknown, Uncoded 06/26/25 10:44) Rash HPI Comments Details: This is an 79-year-old female presenting for management of type 2 diabetes. She was last seen by my colleague who retired on 04/22/2025. Current regimen: Lantus 6 units in the morning She checks her blood sugar 1-3 times daily. Hemoglobin A1c 9%. I reviewed her glucometer data Her average sugar is 176 She is in range 60% of the time Highest glucose 346 and lowest 93 She experiences hyperglycemia sometimes in the afternoon infrequently in the evening and night. She endorses no recent low blood sugars. She thought she had a low yesterday because she felt dizzy around dinnertime, however blood sugar was 157. Patient endorses anxiety about low blood sugars. She denied chest pain or shortness of breath or syncope associated with dizziness. The episode lasted 10-15 minutes. She denied weakness and numbness and tingling. I have advised her to follow up with her primary care provider because she does not think this is the 1st occurrence. Past medications: Tradjenta made her feel sick Metformin and Januvia caused weight gain Trulicity was not effective and she had GI symptoms and weakness Ozempic was stopped secondary to weight loss and GERD Complications: She has nephropathy followed by Dr. Madrigal. She has hyperlipidemia, on statin. She is seen by Cardiology for cardiomyopathy with recent echo showing ejection fraction of 40-45%. She has a balanced diet, but she says one of her manager application development makes meals with higher carb content. Her BP is elevated today, but she reports this is because she didn't take her medication yet. ROS: Constitutional: No unexplained weight loss, fever, chills increased fatigue or night sweats. Eyes: No vision changes, blurry vision, double vision, eye pain Respiratory: No shortness of breath, cough or sputum production. Cardiovascular: No chest pain or palpitations Gastrointestinal: No anorexia, nausea, vomiting or diarrhea. No abdominal pain Genitourinary: No dysuria, hematuria, urinary frequency. Neurologic: No headache, syncope, unilateral weakness, ataxia, numbness or tingling in the extremities. Hematologic/Lymphatics: No bleeding or bruising. Endocrine: No polyuria or polydipsia. Psychiatric: +anxiety followed by psychiatry Physical exam: Constitutional: Alert, in no distress. Neck: Supple, Full range of motion. No lymphadenopathy. No palpable thyroid masses. Respiratory: Clear to auscultation. Cardiovascular: S1 S2 regular. No murmurs. Neurologic: No focal neurological deficits. Moves all extremities spontaneously. Extremities: Warm and well perfused. No clubbing, cyanosis or edema.intact peripheral pulses Psychiatric: Normal mood and affect [facility] Medical History (Updated 06/21/25 @ 08:32 by Boaz Astorga MD) Hyperparathyroidism Left bundle branch block Type 2 diabetes mellitus with chronic kidney disease Chronic kidney disease, stage 4 (severe) Type 2 diabetes mellitus Obesity Skin abrasion HARRIET (renal artery stenosis) Nonischemic cardiomyopathy Urinary incontinence GERD (gastroesophageal reflux disease) COVID-19 Pneumonia due to COVID-19 virus Vertigo Obesity (BMI 30-39.9) Depression Anxiety Stasis edema of both lower extremities Cardiomyopathy Pure hypercholesterolemia Hyperkalemia Renal artery stenosis Benign essential hypertension Conjunctival hemorrhage of right eye Surgical History Hx of colonoscopy Hx of myomectomy History of cataract surgery History of lumpectomy of left breast History of cholecystectomy Family History Father CVD (cardiovascular disease) Myocardial infarction Mother Myocardial infarction CVD (cardiovascular disease) Brother Myocardial infarction Family/Other FH: prostate cancer Social History Household Members: None Housing: Apartment Do you presently have visiting nurse or other home services: No Alcohol intake: never Patient Tobacco Use Status: Former Tobacco user Tobacco use type: Cigarette e-Cigarette/Vaping Use: Never Used Second Hand Smoke Exposure: No Advance Directives Date on File: 08/06/21 service: No Current occupational status: disabled Cognitive needs: No Hearing needs: No Vision needs: Yes Physical Exam Vital Signs: Last Vital Signs Pulse 68 06/26/25 10:43 BP 154/78 H 06/26/25 10:43 Pulse Ox 97 06/26/25 10:43 Oxygen Delivery Method Room Air 06/26/25 10:43 BMI result Body Mass Index 27.0 Results Reviewed Results Reviewed: Laboratory Last Values Glucose (Clinic) 237 mg/dL (60-115) H 06/26/25 10:55 Laboratory Tests 06/13/25 06/13/25 08:47 08:48 Plt Count 210 Creatinine 2.62 H Estimated GFR 18 Hemoglobin A1c % 9.0 H AST 33 H ALT 23 TSH 2.56 Urine Creatinine 37.22 Urine Microalbumin 17.0 Microalb/Creat Ratio 45.6 H Assessment & Plan Assessment & Plan (1) Type 2 diabetes mellitus: Code(s): E11.9 - Type 2 diabetes mellitus without complications Category: Medical Qualifiers: 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 [facility] insulin use: without [facility] use 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 complication status: with kidney complications 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 complication detail: with chronic kidney disease Chronic kidney disease stage: stage 4 (severe) Qualified Code(s): E11.22 - Type 2 diabetes mellitus with diabetic chronic kidney disease; N18.4 - Chronic kidney disease, stage 4 (severe) (2) Benign essential hypertension: Code(s): I10 - Essential (primary) hypertension Category: Medical (3) Dizziness: Code(s): R42 - Dizziness and giddiness Plan In summary this is an 79-year-old female with uncontrolled type 2 diabetes. Given age and comorbidities a reasonable target A1c is between 8 and 8.5%. I reviewed this with her today. She has had some lows in the past in is very anxious about this. I will switch her from Lantus to Tresiba 6 units in the morning. To combat hyperglycemia in the evening and nighttime she will start Humalog at a very low dosage of 2 units 10-15 minutes before dinner only if blood sugar is over 200. We will initiate this conservatively and titrated as needed. She was encouraged to call if she has episodes of low blood sugar. I reviewed treatment of this with her and provided her with written instructions. The episode of dizziness she had yesterday it was not related to hypo or hyperglycemia. I encouraged her to reach out to her primary care physician and call 911 and go to the ER if symptoms return. She understands. Her blood pressure is suboptimal today, but she reports she did not take her medication yet. We can recheck this at her follow up in 2-3 weeks. Medications: New insulin degludec (Tresiba FlexTouch U-100 insulin) Replaces Lantus. 6 units (0.06 mL) subcut DAILY 15 mL 2RF insulin lispro (Humalog KwikPen (U-100) Insulin) Take 2 units 10-15 minutes before dinner if blood sugar is over 200. 2 units (0.02 mL) subcut .before dinner 15 mL 4RF blood sugar diagnostic ([employer]Touch Ultra Test strips) As directed to test blood sugar three times daily. 100 ea 11RF Refilled pen needle, diabetic bid 100 ea 5RF NS Patient Instructions: Stop Lantus and replace it with Tresiba 6 units every morning. Take 2 units of Humalog (insulin lispro) 10-15 minutes before dinner if blood sugar is over 200. Do not use if blood sugar is under 200. If you experience low blood sugar, treat this by eating a chewable fruit candy like skittles or jelly beans (about 8 pieces), 4 ounces (1/2 cup) of fruit juice (not diet), 1 tablespoon of honey or 4 glucose tablets. If your blood sugar is under 50, take double the amount of one of the above. Recheck your blood sugar in 15 minutes. Coding Level of Care Code Est Pt Level 4 (20103) Complex EM visit Add On G2211 Diagnoses Type 2 diabetes mellitus with stage 4 chronic kidney disease, without long-term current use of insulin E11.22; N18.4 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 [facility] insulin use: without wine steward/stewardess use 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 complication status: with kidney complications 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 complication detail: with chronic kidney disease Chronic kidney disease stage: stage 4 (severe) Benign essential hypertension I10 Dizziness R42
[2025-06-26 10:43] VITALS: BP 154/78; PULSE 68; O2SAT 97; BMI 27.0
[2025-06-26 10:59] LABS: Glucose, Whole Blood 237 mg/dL (60-115)
--- OUTSIDE RECORDS SUMMARY | 2025-06-26 11:35 | XMS_ITS | Patient Health Record ---
Author Organization [employer] [facility] [employer] [facility] Address [address] [facility] [place] [address] Care Team Providers Care Actuarial Associate Name Role Phone Robel Astorga MDh Primary Care Provider Yarely Medina Unavailable [phone] Allergies Allergen (clinical drug ingredient) Drug/Non Drug [...] Boaz Referring Provider Last Name Rizwan Referred [facility] Referred Provider Yarely Gibbs Referred Address [address] [place], [place],[address], Referred Provider Specialty Podiatry Referral Priority Routine [...] a day; Duration: 30 day(s) Active Nystatin 674573 UNIT/GM 1 application Externally Twice a day [...] Problem Acquired hammer toe of right foot ([id number] 05) Other hammer toe(s) (acquired), right foot (M20.41) Active confirmed Problem Type 2 diabetes mellitus with peripheral angiopathy (241372529) Type 2 diabetes mellitus with diabetic peripheral angiopathy without gangrene (E11.51) Active confirmed Problem Acquired hammer toe of left foot (75532963639793 03) Other hammer toe(s) (acquired), left foot (M20.42) Active confirmed Vital Signs Blood pressure diastolic 71 mm Hg 04/14/2025 Height 5 ft in 04/14/2025 Blood pressure systolic 146 mm Hg 04/14/2025 Weight 136 lbs 04/14/2025 BMI 26.56 kg/m2 04/14/2025 Encounters Encounter Location Date Provider Diagnosis [address] [address] 07/09/2024 Yarely Perica Tinea pedis of both feet B35.3 ; Type 2 diabetes mellitus with diabetic peripheral angiopathy without gangrene E11.51 ; Tinea unguium B35.1 ; Pain in left toe(s) M79.675 and Pain in right toe(s) M79.[address] [address] 09/17/2024 Yarely Perica Tinea pedis of both feet B35.3 ; Type 2 diabetes mellitus with diabetic peripheral angiopathy without gangrene E11.51 ; Tinea unguium B35.1 ; Pain in left toe(s) M79.675 ; Pain in right toe(s) M79.674 and Xerosis cutis L85.[address] [address] 01/21/2025 Yarely Perica Tinea pedis of both feet B35.3 ; Other hammer toe(s) (acquired), right foot M20.41 ; Type 2 diabetes mellitus with diabetic peripheral angiopathy without gangrene E11.51 ; Tinea unguium B35.1 ; Pain in left toe(s) M79.675 ; Pain in right toe(s) M79.674 ; Xerosis cutis L85.3 and Other hammer toe(s) (acquired), left foot M20.42 [facility] [address] [address] 04/14/2025 Yarely Gibbs Type 2 diabetes mellitus with diabetic peripheral angiopathy without gangrene E11.51 ; Tinea unguium B35.1 ; Pain in left toe(s) M79.675 and Pain in right toe(s) M79.674 [facility] [address] [address] 07/02/2024 Yarely Gibbs [facility] [address] 12/02/2024 Yarely Gibbs [address] [address] 01/21/2025 Yarely Gibbs Assessments Encounter Date Diagnosis [...] Details Provider Name:Yarely puckett, 07/07/2025 03:00:00 PM, [address] [place] [address], [phone], Insurance Providers Payer Name Payer Address Payer Phone Subscriber Number Group Number Insured Name Patient Relationship to Insured Coverage Start Date Coverage End Date [facility] [address] [place] [phone] [id number] Alicia Noel Self - patient is the insured Medical (General) History Medical History History ICD Code Angina Anxiety Arthritis Back, Hip, Knee Pain Depression Headaches/Migraines Heart Disease High Blood Pressure Poor Circulation Psychiatric Disorder CAD (Cholesterol) type II diabetes Crack in the ribs Surgical History Surgery Date(Month/Year) gall bladder Surgery lumpectomy cataracts Fibroid Hospitalization History Reason Date(Month/Year) [facility]- High BP -3 days C- blood pressure- 2 days - changed wa ter pills 04/11 [facility]- low blood pressure - water pill sta yed 2 days 03/07/2021
--- OUTSIDE RECORDS SUMMARY | 2025-06-26 11:35 | XMS_ITS | Clinical Summary ---
Author Organization [facility] Address [address] [place] [address] Phone Care Team Providers Care Academic Coordinator Name Role Phone Boaz Astorga MD Primary Care Provider [phone] Allergies Active Allergy Reactions Criticality Noted Date [...] patient's age to complete this topic Insurance [email or web address] [facility] ([id number]) [email or web address] [facility]/[employer] ([id number]) Care Teams Academic Coordinator Relationship Specialty Start Date End Date Boaz Astorga MD [address] [place] [address] PCP - General 11/01/20
== END 2025-06-26 11:45 | disposition home or self-care (01) ==
LOC: HO.ENCR 10:35
PROVIDERS: PCP Internal Medicine; Visit Provider Physician Assistant Medical
DX: E11.22 Type 2 diabetes mellitus with diabetic chronic kidney disease (principal); N18.4 Chronic kidney disease, stage 4 (severe); I12.9 Hypertensive chronic kidney disease with stage 1 through stage 4 chronic kidney disease, or unspecified chronic kidney disease; R42 Dizziness and giddiness

== ENCOUNTER → 2025-06-26 10:34 | Outpatient (BNVA) | payer OTHER, SELFPAY | PROVIDERS: PCP Internal Medicine; Visit Provider Physician Assistant Medical | DX: R42 Dizziness and giddiness (principal); I10 Essential (primary) hypertension; E11.22 Type 2 diabetes mellitus with diabetic chronic kidney disease; N18.4 Chronic kidney disease, stage 4 (severe) | CPT/HCPCS: 82947; 99212 ==

== ENCOUNTER 2025-07-24 10:39 | Outpatient (AMB) | payer OTHER, SELFPAY ==
--- OUTSIDE RECORDS SUMMARY | 2024-12-02 10:00 | XMS_ITS ---
Author Organization [facility] Address [address] [facility] [place] [address] Care Team Providers Care Acds Block 1 Operator Name Role Phone Rizwan SORENSON, Boaz Primary Care Provider Yarely Medina Unavailable [phone] Medications Medication SIG (Take, Route, Frequency, Duration) [...] day; Duration: 30 days 06/06/2023 Active Nystatin 283417 UNIT/GM 1 application Externally Twice a day [...] Active Encounters Encounter Location Date Provider Diagnosis [facility] [address] [address] 12/02/2024 Yarely Gibbs Plan Of Treatment Next Appt Details Provider Name:Yarely puckett, 08/18/2025 10:45:00 AM, [address] [place] [address], [phone], Progress Notes * Alicia DUONGDOB:1945 (79 yo F)Acc No.[id number]:12/02/2024 Progress Note Patient: Alicia ROQUE Provider: Jarad Gibbs DPM :1945 A ge:79 Y S ex:Female Date:12/02/2024 Address:[address] [place], [place] [phone] Pcp:Boaz Astorga MD Subjective: * Chief Complaints: [...] needed Twice a day , Not-Taking/PRN Nystatin 862986 UNIT/GM Cream 1 application Externally Twice a [...] Generated for Mary Ann Carbone on: 1 11:36 AM EDT History and Physical Notes * HPI (History of Present Illness) Category Sub-Category Detail Notes Category Not es At Risk footcare Pt States Last PCP Visit: Date: 4
--- OUTSIDE RECORDS SUMMARY | 2025-02-18 07:30 | XMS_ITS ---
Author Organization [facility] Address [address] [place] [address] Care Team Providers Care Odd Bundle Worker Name Role Phone Rizwan SORENSON, Boaz Primary Care Provider UnaYarely White Unavailable [phone] Encounters Encounter Location Date Provider Diagnosis [address] [address] 02/18/2025 Yarely Gibbs Plan Of Treatment Next Appt Details Provider Name:Yarely puckett, 08/18/2025 10:45:00 AM, [address] [place] [address], [address], Progress Notes * Alicai DUONGDOB:1945 (79 yo F)Acc No.[id number]:02/18/2025 Progress Note Patient: Alicia ROQUE Provider: Jarad Gibbs DPM :1945 A ge:79 Y S ex:Female Date:02/18/2025 Address:[address] [facility] [address], [place], [place] Pcp:Boaz Astorga MD Subjective: * Chief Complaints: [...] Generated for Mary Ann baca/Suzy/Jonathonitting on: 1 11:37 AM EDT
--- OUTSIDE RECORDS SUMMARY | 2025-07-07 11:00 | XMS_ITS ---
Author Organization [facility] Address [address] [place] [address] Care Team Providers Care Medical Office Receptionist Assistant Name Role Phone Rizwan SORENSON, Boaz Primary Care Provider UnaYarely White Unavailable [phone] Encounters Encounter Location Date Provider Diagnosis [address] [address] 07/07/2025 Yarely Gibbs Plan Of Treatment Next Appt Details Provider Name:Yarely puckett, 08/18/2025 10:45:00 AM, [address] [place] [address], [address], Progress Notes * Alicia DUONGDOB:1945 (79 yo F)Acc No.[id number]:07/07/2025 Progress Note Patient: Alicia ROQUE Provider: Jarad Gibbs DPM :1945 A ge:79 Y S ex:Female Date:07/07/2025 Address:[address] [facility] [address], [place], [place] Pcp:Boaz Astorga MD Subjective: * Chief Complaints: [...] Generated for Mary Ann baca/Suzy/Jonathonitting on: 1 11:36 AM EDT
--- NOTE | 2025-07-24 10:54 | MHC.OFFVIS ---
Vital Signs 07/24/25 10:57 Height 5 ft Weight 139 lb 8.842 oz BMI 27.3 BP 130/60 Blood Pressure Location Rt brachial Position Sitting Pulse 61 Pulse Source Pulse Oximeter Pulse Oximetry (%) 99 Oxygen Delivery Method Room Air Intake Visit Reasons: T2DM Intake Note: Patient present today to follow up on Type 2 Diabetes Mellitus. Last Diabetic Eye exam: 04/03/2025 [facility] Last Podiatry Visit: Does not see a Pad Tufter Random Glucose: 192 mg/dl Hgb A1C: 9.0% 06/13/2025 Retail Loan Originator Assistant Required: No Accompanied by: Self / Same As Patient Allergies aspirin (Aspirin) Allergy (Severe, Verified 07/24/25 10:58) MOUTH SWELLING hydrochlorothiazide (Hydrochlorothiazide) Allergy (Intermediate, Verified 07/24/25 10:58) DROP IN BLOOD PRESSURE Penicillins (PENICILLINS) Allergy (Intermediate, Verified 07/24/25 10:58) ITCHING caffeine (Caffeine) Allergy (Mild, Verified 07/24/25 10:58) NERVOUSNESS lisinopril (Lisinopril) Allergy (Mild, Verified 07/24/25 10:58) CHANGES IN BLOOD PRESSURE ranitidine (RANITIDINE) Allergy (Mild, Verified 07/24/25 10:58) HEADACHE amlodipine (AMLODIPINE) Allergy (Unknown, Verified 07/24/25 10:58) UNKNOWN amoxicillin Allergy (Unknown, Verified 07/24/25 10:58) itching, severe with rash diclofenac Allergy (Unknown, Verified 07/24/25 10:58) Unknown escitalopram Allergy (Unknown, Verified 07/24/25 10:58) abdominal discomfort, drowsiness esomeprazole (Nexium) Allergy (Unknown, Verified 07/24/25 10:58) Unknown isosorbide (ISOSORBIDE) Allergy (Unknown, Verified 07/24/25 10:58) UNKNOWN lidocaine (Lidoderm) Allergy (Unknown, Verified 07/24/25 10:58) weakness mirtazapine Allergy (Unknown, Verified 07/24/25 10:58) Unknown nystatin Allergy (Unknown, Verified 07/24/25 10:58) rash sertraline (SERTRALINE) Allergy (Unknown, Verified 07/24/25 10:58) UNKNOWN dexlansoprazole (From DEXILANT) Adverse Reaction (Severe, Verified 07/24/25 10:58) AGITATION hydrocortisone (From Cortizone-10) Adverse Reaction (Mild, Verified 07/24/25 10:58) RAISES BLOOD SUGAR semaglutide (From Ozempic) Adverse Reaction (Mild, Verified 07/24/25 10:58) gerd topiramate (From TOPAMAX) Adverse Reaction (Unknown, Verified 07/24/25 10:58) AGITATION trajenta Allergy (Severe, Uncoded 07/24/25 10:58) numbness From PLAVIX Allergy (Unknown, Uncoded 07/24/25 10:58) PT UNSURE OF REACTION Medical tape Allergy (Unknown, Uncoded 07/24/25 10:58) Rash HPI Comments Details: This is an 79-year-old female presenting for management of type 2 diabetes. Current regimen: Toujeo 6 units daily and Humalog 2 units before dinner Hemoglobin A1c 9% 06/13/25 (prior to med changes). Reviewed her glucometer download Her average blood sugar is 169 She is in range 70% Highest 345 Lowest 96 3.1 readings per day The patient had 2 readings over 300 (345 and 329) when she forgot to take insulin. Her blood sugars have been very good during the past week ranging between 122-177 with 1 blood sugar over 180 at 211. Past medications: Tradjenta made her feel sick Metformin and Januvia caused weight gain Trulicity was not effective and she had GI symptoms and weakness Ozempic was stopped secondary to weight loss and GERD Complications: She has nephropathy followed by Dr. Madrigal. She has hyperlipidemia, on statin. She is seen by Cardiology for cardiomyopathy with recent echo showing ejection fraction of 40-45%. She has a balanced diet, and she ended up letting go of her ACCOUNT UNDERWRITER who was not adhering to the dietary guidelines she recommended. ROS: Constitutional: No unexplained weight loss, fever, chills increased fatigue or night sweats. Eyes: No vision changes, blurry vision, double vision, eye pain Respiratory: No shortness of breath, cough or sputum production. Cardiovascular: No chest pain or palpitations Gastrointestinal: No anorexia, nausea, vomiting or diarrhea. No abdominal pain Genitourinary: No dysuria, hematuria, urinary frequency. Neurologic: No dizziness, syncope, headaches, weakness Hematologic/Lymphatics: No bleeding or bruising. Endocrine: No polyuria or polydipsia. Psychiatric: +anxiety followed by Psychiatry Physical exam: Constitutional: Alert, in no distress. Neck: Supple, Full range of motion. No lymphadenopathy. No palpable thyroid masses. Respiratory: Clear to auscultation. Cardiovascular: S1 S2 regular. No murmurs. Neurologic: No focal neurological deficits. Moves all extremities spontaneously. Feet: There is some mild dry skin on the heels. No open wounds. Intact DP pulses. 1+ lower extremity edema. [facility] Medical History (Updated 06/21/25 @ 08:32 by Boaz Astorga MD) Hyperparathyroidism Left bundle branch block Type 2 diabetes mellitus with chronic kidney disease Chronic kidney disease, stage 4 (severe) Type 2 diabetes mellitus Obesity Skin abrasion HARRIET (renal artery stenosis) Nonischemic cardiomyopathy Urinary incontinence GERD (gastroesophageal reflux disease) COVID-19 Pneumonia due to COVID-19 virus Vertigo Obesity (BMI 30-39.9) Depression Anxiety Stasis edema of both lower extremities Cardiomyopathy Pure hypercholesterolemia Hyperkalemia Renal artery stenosis Benign essential hypertension Conjunctival hemorrhage of right eye Surgical History Hx of colonoscopy Hx of myomectomy History of cataract surgery History of lumpectomy of left breast History of cholecystectomy Family History Father CVD (cardiovascular disease) Myocardial infarction Mother Myocardial infarction CVD (cardiovascular disease) Brother Myocardial infarction Family/Other FH: prostate cancer Social History Household Members: None Housing: Apartment Do you presently have visiting nurse or other home services: No Alcohol intake: never Patient Tobacco Use Status: Former Tobacco user Tobacco use type: Cigarette e-Cigarette/Vaping Use: Never Used Second Hand Smoke Exposure: No Advance Directives Date on File: 08/06/21 service: No Current occupational status: disabled Cognitive needs: No Hearing needs: No Vision needs: Yes Physical Exam Vital Signs: Last Vital Signs Pulse 61 07/24/25 10:57 BP 130/60 07/24/25 10:57 Pulse Ox 99 07/24/25 10:57 Oxygen Delivery Method Room Air 07/24/25 10:57 BMI result Body Mass Index 27.3 Results Reviewed Results Reviewed: Laboratory Last Values Glucose (Clinic) 192 mg/dL (60-115) H 07/24/25 11:04 Laboratory Tests 06/13/25 06/13/25 08:47 08:48 Plt Count 210 Creatinine 2.62 H Estimated GFR 18 Hemoglobin A1c % 9.0 H AST 33 H ALT 23 TSH 2.56 Urine Creatinine 37.22 Urine Microalbumin 17.0 Microalb/Creat Ratio 45.6 H Assessment & Plan Assessment & Plan (1) Type 2 diabetes mellitus: Code(s): E11.9 - Type 2 diabetes mellitus without complications Category: Medical Qualifiers: Chronic kidney disease stage: stage 4 (severe) 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 complication detail: with chronic kidney disease 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 complication status: with kidney complications 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 chcf insulin use: without termite inspector use Qualified Code(s): E11.22 - Type 2 diabetes mellitus with diabetic chronic kidney disease; N18.4 - Chronic kidney disease, stage 4 (severe) (2) Benign essential hypertension: Code(s): I10 - Essential (primary) hypertension Category: Medical Plan In summary this is an 79-year-old female with uncontrolled type 2 diabetes, however her glucose readings have improved significantly since our initial visit. She will continue Toujeo 6 units daily. Continue Humalog 2 units 10-15 minutes before dinner only. She has written instructions to treat hypoglycemia. Her blood pressure is normal today. Continue current regimen. Follow up in 8 weeks for A1c and type 2 diabetes. Coding Level of Care Code Est Pt Level 4 (19069) Complex EM visit Add On G2211 Diagnoses Type 2 diabetes mellitus with stage 4 chronic kidney disease, without long-term current use of insulin E11.22; N18.4 Chronic kidney disease stage: stage 4 (severe) 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 complication detail: with chronic kidney disease 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 complication status: with kidney complications 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 termite inspector insulin use: without termite inspector use Benign essential hypertension I10
[2025-07-24 10:57] VITALS: BP 130/60; PULSE 61; O2SAT 99; BMI 27.3
[2025-07-24 11:08] LABS: Glucose, Whole Blood 192 mg/dL (60-115)
--- OUTSIDE RECORDS SUMMARY | 2025-07-24 11:37 | XMS_ITS | Clinical Summary ---
Author Organization [facility] Address [address] [place] [address] Phone Care Team Providers Care Soap Tender Name Role Phone Boaz Astorga MD Primary Care Provider [phone]- [phone] Allergies Active Allergy Reactions Criticality Noted Date [...] age to complete this topic Insurance [employer] [facility] ([id number]) [place] [employer] [facility] ([id number]) Care Teams Soap Tender Relationship Specialty Start Date End Date Boaz Astorga MD [address] [place] [address] PCP - General 11/01/20
--- OUTSIDE RECORDS SUMMARY | 2025-07-24 11:37 | XMS_ITS | Patient Health Record ---
[facility] Address [address] [place] [address] Care Team Providers Care Us Marketing Director Name Role Phone Robel Astorga MDh Primary Care Provider Yarely Medina Unavailable [phone] Allergies Allergen (clinical drug ingredient) Drug/Non Drug [...] Boaz Referring Provider Last Name Rizwan Referred [facility] Pod[facility] Referred Provider Yarely Gibbs Referred Address [address] [place], [place],[address], Referred Provider Specialty Podiatry Referral Priority Routine [...] a day; Duration: 30 day(s) Active Nystatin 272528 UNIT/GM 1 application Externally Twice a day [...] Problem Acquired hammer toe of right foot (01299270477359 05) Other hammer toe(s) (acquired), right foot (M20.41) Active confirmed Problem Type 2 diabetes mellitus with peripheral angiopathy (343050886) Type 2 diabetes mellitus with diabetic peripheral angiopathy without gangrene (E11.51) Active confirmed Problem Acquired hammer toe of left foot (18020361070838 03) Other hammer toe(s) (acquired), left foot (M20.42) Active confirmed Vital Signs Blood pressure diastolic 71 mm Hg 04/14/2025 Height 5 ft in 04/14/2025 Blood pressure systolic 146 mm Hg 04/14/2025 Weight 136 lbs 04/14/2025 BMI 26.56 kg/m2 04/14/2025 Encounters Encounter Location Date Provider Diagnosis [address] [address] 09/17/2024 Yarely Gibbs Tinea pedis of both feet B35.3 ; Type 2 diabetes mellitus with diabetic peripheral angiopathy without gangrene E11.51 ; Tinea unguium B35.1 ; Pain in left toe(s) M79.675 ; Pain in right toe(s) M79.674 and Xerosis cutis L85.[address] [address] 01/21/2025 Yarely Gibbs Tinea pedis of both feet B35.3 ; Other hammer toe(s) (acquired), right foot M20.41 ; Type 2 diabetes mellitus with diabetic peripheral angiopathy without gangrene E11.51 ; Tinea unguium B35.1 ; Pain in left toe(s) M79.675 ; Pain in right toe(s) M79.674 ; Xerosis cutis L85.3 and Other hammer toe(s) (acquired), left foot M20.[address] [address] 04/14/2025 Yarely Gibbs Type 2 diabetes mellitus with diabetic peripheral angiopathy without gangrene E11.51 ; Tinea unguium B35.1 ; Pain in left toe(s) M79.675 and Pain in right toe(s) M79.674 [facility] [address] [address] 12/02/2024 Yarely Gibbs [facility] [address] [address] 01/21/2025 Yarely Perica [facility] [address] [address] 07/07/2025 Yarely Perica [facility] [address] [address] 07/16/2025 Yarely Gibbs Assessments Encounter Date Diagnosis (ICD Code) Assessment Notes Treatment Notes Treatment Clinical Notes Section Notes 09/17/2024 Type 2 diabetes mellitus with diabetic [...] angiopathy without gangrene (ICD-10 - E11.51) 09/17/2024 Pain in left toe(s) (ICD-10 - [...] 06/07/2022 Next Appt Details Provider Name:Yarely puckett, 08/18/2025 10:45:00 AM, [address] [place] [id number], Insurance Providers Payer Name Payer Address Payer Phone Subscriber Number Group Number Insured Name Patient Relationship to Insured Coverage Start Date Coverage End Date [facility] [address] [place] [phone] [id number] Alicia Noel Self - patient is the insured Medical (General) History Medical History History ICD Code Angina Anxiety Arthritis Back, Hip, Knee Pain Depression Headaches/Migraines Heart Disease High Blood Pressure Poor Circulation Psychiatric Disorder CAD (Cholesterol) type II diabetes Crack in the ribs Surgical History Surgery Date(Month/Year) gall bladder Surgery lumpectomy cataracts Fibroid Hospitalization History Reason Date(Month/Year) C- High BP -3 days [facility]- blood pressure- 2 days - changed wa ter pills 04/11 C- low blood pressure - water pill sta yed 2 days 03/07/2021
== END 2025-07-24 11:36 | disposition home or self-care (01) ==
LOC: HO.ENCR 10:40
PROVIDERS: PCP Internal Medicine; Visit Provider Physician Assistant Medical
DX: E11.22 Type 2 diabetes mellitus with diabetic chronic kidney disease (principal); N18.4 Chronic kidney disease, stage 4 (severe); I12.9 Hypertensive chronic kidney disease with stage 1 through stage 4 chronic kidney disease, or unspecified chronic kidney disease

== ENCOUNTER → 2025-07-24 10:39 | Outpatient (BNVA) | payer OTHER, SELFPAY | PROVIDERS: PCP Internal Medicine; Visit Provider Physician Assistant Medical | DX: E11.22 Type 2 diabetes mellitus with diabetic chronic kidney disease (principal); N18.4 Chronic kidney disease, stage 4 (severe) | CPT/HCPCS: 82947; 99212 ==

== ENCOUNTER 2025-07-28 10:37 | Outpatient (AMB) | payer OTHER, SELFPAY ==
--- OUTSIDE RECORDS SUMMARY | 2024-12-02 10:00 | XMS_ITS ---
Author Organization [facility] Address [address] [facility] [place] [address] Care Team Providers Care Retail Product Demo Specialist Name Role Phone Rizwan SORENSON, Boaz Primary Care Provider Yarely Medina Unavailable [phone] Medications Medication SIG (Take, Route, Frequency, Duration) [...] day; Duration: 30 days 06/06/2023 Active Nystatin 164055 UNIT/GM 1 application Externally Twice a day [...] Active Encounters Encounter Location Date Provider Diagnosis [facility] [address] [address] 12/02/2024 Yarely Gibbs Plan Of Treatment Next Appt Details Provider Name:Yarely puckett, 08/18/2025 10:45:00 AM, [address] [place] [address], [phone], Progress Notes * Alicia DUONGDOB:1945 (79 yo F)Acc No.[id number]:12/02/2024 Progress Note Patient: Alicia ROQUE Provider: Jarad Gibbs DPM :1945 A ge:79 Y S ex:Female Date:12/02/2024 Address:[address] [place], [place] [phone] Pcp:Boaz Astorga MD Subjective: * Chief Complaints: [...] needed Twice a day , Not-Taking/PRN Nystatin 483694 UNIT/GM Cream 1 application Externally Twice a [...] Generated for Mary Ann Carbone on: 1 12:52 PM EDT History and Physical Notes * HPI (History of Present Illness) Category Sub-Category Detail Notes Category Not es At Risk footcare Pt States Last PCP Visit: Date: 4
--- OUTSIDE RECORDS SUMMARY | 2025-02-18 07:30 | XMS_ITS ---
Author Organization [facility] Address [address] [place] [address] Care Team Providers Care Tin Roller Hot Mill Name Role Phone Rizwan SORENSON, Boza Primary Care Provider UnaYarely White Unavailable [phone] Encounters Encounter Location Date Provider Diagnosis [address] [address] 02/18/2025 Yarely Gibbs Plan Of Treatment Next Appt Details Provider Name:Yarely puckett, 08/18/2025 10:45:00 AM, [address] [place] [address], [address], Progress Notes * Alicia DUONGDOB:1945 (79 yo F)Acc No.[id number]:02/18/2025 Progress Note Patient: Alicia ROQUE Provider: Jarad Gibbs DPM :1945 A ge:79 Y S ex:Female Date:02/18/2025 Address:[address] [facility] [address], [place], [place] Pcp:Boaz Astorga MD Subjective: * Chief Complaints: [...] Generated for Mary Ann baca/Suzy/Jonathonitting on: 1 12:53 PM EDT
--- OUTSIDE RECORDS SUMMARY | 2025-07-07 11:00 | XMS_ITS ---
Author Organization [facility] Address [address] [place] [address] Care Team Providers Care Scullion Chief Name Role Phone Rizwan SORENSON, Boaz Primary Care Provider UnaYarely White Unavailable [phone] Encounters Encounter Location Date Provider Diagnosis [address] [address] 07/07/2025 Yarely Gibbs Plan Of Treatment Next Appt Details Provider Name:Yarely puckett, 08/18/2025 10:45:00 AM, [address] [place] [address], [address], Progress Notes * Alicia DUONGDOB:1945 (79 yo F)Acc No.[id number]:07/07/2025 Progress Note Patient: Alicia ROQUE Provider: Jarad Gibbs DPM :1945 A ge:79 Y S ex:Female Date:07/07/2025 Address:[address] [facility] [address], [place] Pcp:Boaz Astorga MD Subjective: * Chief Complaints: [...]
--- NOTE | 2025-07-28 11:19 | MHC.AMDMED ---
Intake Intake Visit Reasons: 60 MIN Golf Course Ranger Required: No Accompanied by: Self / Same As Patient Allergies aspirin (Aspirin) Allergy (Severe, Verified 07/24/25 10:58) MOUTH SWELLING hydrochlorothiazide (Hydrochlorothiazide) Allergy (Intermediate, Verified 07/24/25 10:58) DROP IN BLOOD PRESSURE Penicillins (PENICILLINS) Allergy (Intermediate, Verified 07/24/25 10:58) ITCHING caffeine (Caffeine) Allergy (Mild, Verified 07/24/25 10:58) NERVOUSNESS lisinopril (Lisinopril) Allergy (Mild, Verified 07/24/25 10:58) CHANGES IN BLOOD PRESSURE ranitidine (RANITIDINE) Allergy (Mild, Verified 07/24/25 10:58) HEADACHE amlodipine (AMLODIPINE) Allergy (Unknown, Verified 07/24/25 10:58) UNKNOWN amoxicillin Allergy (Unknown, Verified 07/24/25 10:58) itching, severe with rash diclofenac Allergy (Unknown, Verified 07/24/25 10:58) Unknown escitalopram Allergy (Unknown, Verified 07/24/25 10:58) abdominal discomfort, drowsiness esomeprazole (Nexium) Allergy (Unknown, Verified 07/24/25 10:58) Unknown isosorbide (ISOSORBIDE) Allergy (Unknown, Verified 07/24/25 10:58) UNKNOWN lidocaine (Lidoderm) Allergy (Unknown, Verified 07/24/25 10:58) weakness mirtazapine Allergy (Unknown, Verified 07/24/25 10:58) Unknown nystatin Allergy (Unknown, Verified 07/24/25 10:58) rash sertraline (SERTRALINE) Allergy (Unknown, Verified 07/24/25 10:58) UNKNOWN dexlansoprazole (From DEXILANT) Adverse Reaction (Severe, Verified 07/24/25 10:58) AGITATION hydrocortisone (From Cortizone-10) Adverse Reaction (Mild, Verified 07/24/25 10:58) RAISES BLOOD SUGAR semaglutide (From Ozempic) Adverse Reaction (Mild, Verified 07/24/25 10:58) gerd topiramate (From TOPAMAX) Adverse Reaction (Unknown, Verified 07/24/25 10:58) AGITATION trajenta Allergy (Severe, Uncoded 07/24/25 10:58) numbness From PLAVIX Allergy (Unknown, Uncoded 07/24/25 10:58) PT UNSURE OF REACTION Medical tape Allergy (Unknown, Uncoded 07/24/25 10:58) Rash HPI Comprehensive Diabetes Asmnt Most Recent Diabetes Results: Microalb/Creat Ratio, (<30) 45.6 ug/mg cr H 06/13/25 Cholesterol, (<200) 142 mg/dL 06/13/25 HDL Cholesterol, (>40) 50 mg/dL 06/13/25 Triglycerides, (<150) 89 mg/dL 06/13/25 Creatinine, (0.5-1.4) 2.62 mg/dL H 06/13/25 BUN, (9-16) 43 mg/dL H 06/13/25 Sodium, (135-145) 138 mmol/L 06/13/25 Potassium, (3.3-5.1) 4.8 mmol/L 06/13/25 Chloride, (96-108) 104 mmol/L 06/13/25 Carbon Dioxide, (22-29) 24 mmol/L 06/13/25 Calcium, (8.4-10.2) 10.4 mg/dL H Δ 06/13/25 AST, (5-31) 33 U/L H 06/13/25 ALT, (0-31) 23 U/L 06/13/25 Total Protein, (6.5-8.0) 8.0 g/dL 06/13/25 Albumin, (3.5-5.0) 4.8 g/dL 06/13/25 PFSH Medical History (Updated 06/21/25 @ 08:32 by Boaz Astorga MD) Hyperparathyroidism Left bundle branch block Type 2 diabetes mellitus with chronic kidney disease Chronic kidney disease, stage 4 (severe) Type 2 diabetes mellitus Obesity Skin abrasion HARRIET (renal artery stenosis) Nonischemic cardiomyopathy Urinary incontinence GERD (gastroesophageal reflux disease) COVID-19 Pneumonia due to COVID-19 virus Vertigo Obesity (BMI 30-39.9) Depression Anxiety Stasis edema of both lower extremities Cardiomyopathy Pure hypercholesterolemia Hyperkalemia Renal artery stenosis Benign essential hypertension Conjunctival hemorrhage of right eye Surgical History Hx of colonoscopy Hx of myomectomy History of cataract surgery History of lumpectomy of left breast History of cholecystectomy Family History Father CVD (cardiovascular disease) Myocardial infarction Mother Myocardial infarction CVD (cardiovascular disease) Brother Myocardial infarction Family/Other FH: prostate cancer Social History Household Members: None Housing: Apartment Do you presently have visiting nurse or other home services: No Alcohol intake: never Patient Tobacco Use Status: Former Tobacco user Tobacco use type: Cigarette e-Cigarette/Vaping Use: Never Used Second Hand Smoke Exposure: No Advance Directives Date on File: 08/06/21 service: No Current occupational status: disabled Cognitive needs: No Hearing needs: No Vision needs: Yes Assessment & Plan Assessment & Plan (1) Type 2 diabetes mellitus: Code(s): E11.9 - Type 2 diabetes mellitus without complications Qualifiers: 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 rn long term care insulin use: without intermediate use 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 complication status: with kidney complications 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 complication detail: with chronic kidney disease Chronic kidney disease stage: stage 4 (severe) Qualified Code(s): E11.22 - Type 2 diabetes mellitus with diabetic chronic kidney disease; N18.4 - Chronic kidney disease, stage 4 (severe) Plan: Patient at visit for follow-up blood glucose check, and diabetes education Medications: Toujeo 6 units daily Lispro 2 units before supper Patient reports she is taking lispro 6 units before breakfast. Although she is prescribed lispro 2 units before supper. Denies taking Toujeo, but reports she does have it at home Discussed with patient the different action between lispro in Toujeo Patient has no episodes of hypoglycemia on glucose download, reviewed with patient how to treat hypoglycemia with glucose tabs. Patient reports she keeps glucose tabs with her. At today's visit we called [facility] pharmacy to confirm that she can drop sharps off at [facility] location. Patient reports blood sugars below: Plan: Patient will bring insulin pens to visit with endocrine PA on 08/04/25. Message sent to endocrine PA to clarify with patient what she should be taking for her insulins Patient Instructions: Follow-up with diabetes education as needed Coding Level of Care Code Est Pt Level 1 (19992) Diagnoses Type 2 diabetes mellitus with stage 4 chronic kidney disease, without long-term current use of insulin E11.22; N18.4 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 rn long term care insulin use: without intermediate use 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 complication status: with kidney complications 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 complication detail: with chronic kidney disease Chronic kidney disease stage: stage 4 (severe)
--- OUTSIDE RECORDS SUMMARY | 2025-07-28 12:53 | XMS_ITS | Patient Health Record ---
[facility] Address [address] [place] [address] Care Team Providers Care Paper Sales Representative Name Role Phone Robel Astorga MDh Primary Care Provider Yarely Medina Unavailable [phone] Allergies Allergen (clinical drug ingredient) Drug/Non Drug [...] Boaz Referring Provider Last Name Rizwan Referred [facility] Pod[facility] Referred Provider Yarely Gibbs Referred Address [address] [place], [place],[address], Referred Provider Specialty Podiatry Referral Priority Routine [...] a day; Duration: 30 day(s) Active Nystatin 643455 UNIT/GM 1 application Externally Twice a day [...] Problem Acquired hammer toe of right foot (61835755228903 05) Other hammer toe(s) (acquired), right foot (M20.41) Active confirmed Problem Type 2 diabetes mellitus with peripheral angiopathy (525829136) Type 2 diabetes mellitus with diabetic peripheral angiopathy without gangrene (E11.51) Active confirmed Problem Acquired hammer toe of left foot (06632463504769 03) Other hammer toe(s) (acquired), left foot (M20.42) Active confirmed Vital Signs Blood pressure diastolic 71 mm Hg 04/14/2025 Height 5 ft in 04/14/2025 Blood pressure systolic 146 mm Hg 04/14/2025 Weight 136 lbs 04/14/2025 BMI 26.56 kg/m2 04/14/2025 Encounters Encounter Location Date Provider Diagnosis [address] [address] 09/17/2024 Yarely Gibbs Tinea pedis of both feet B35.3 ; Type 2 diabetes mellitus with diabetic peripheral angiopathy without gangrene E11.51 ; Tinea unguium B35.1 ; Pain in left toe(s) M79.675 ; Pain in right toe(s) M79.674 and Xerosis cutis L85.[address] [address] 01/21/2025 Yarely Gibbs Tinea pedis of both feet B35.3 ; Other hammer toe(s) (acquired), right foot M20.41 ; Type 2 diabetes mellitus with diabetic peripheral angiopathy without gangrene E11.51 ; Tinea unguium B35.1 ; Pain in left toe(s) M79.675 ; Pain in right toe(s) M79.674 ; Xerosis cutis L85.3 and Other hammer toe(s) (acquired), left foot M20.[address] [address] 04/14/2025 Yarely Gibbs Type 2 diabetes mellitus with diabetic peripheral angiopathy without gangrene E11.51 ; Tinea unguium B35.1 ; Pain in left toe(s) M79.675 and Pain in right toe(s) M79.674 [facility] [address] [address] 12/02/2024 Yarely Gibbs [facility] [address] [address] 01/21/2025 Yarely Perica [facility] [address] [address] 07/07/2025 Yarely Perica [facility] [address] [address] 07/16/2025 Yarely Gibbs Assessments Encounter Date Diagnosis [...] Details Provider Name:Yarely puckett, 08/18/2025 10:45:00 AM, [address] [place] [address], [phone], Insurance Providers Payer Name Payer Address Payer Phone Subscriber Number Group Number Insured Name Patient Relationship to Insured Coverage Start Date Coverage End Date [facility] [address] [place] [phone] [id number] Alicia Noel Self - patient is the [...]
--- OUTSIDE RECORDS SUMMARY | 2025-07-28 12:53 | XMS_ITS | Clinical Summary ---
Author Organization [facility] Address [address] [place] [address] Phone Care Team Providers Care Milk Bottler Name Role Phone Boaz Astorga MD Primary Care Provider +1- [phone] Allergies Active Allergy Reactions Criticality Noted Date [...] age to complete this topic Insurance [employer] [facility]/[employer] ([id number]) [place] [employer] [facility]/[employer] ([id number]) Care Teams Milk Bottler Relationship Specialty Start Date End Date Boaz Astorga MD [address] [place] [address] PCP - General 11/01/20
== END 2025-07-28 11:24 | disposition home or self-care (01) ==
LOC: HO.ENCR 10:38
PROVIDERS: PCP Internal Medicine; Visit Provider Registered Nurse Diabetes Educator
DX: E11.22 Type 2 diabetes mellitus with diabetic chronic kidney disease (principal); N18.4 Chronic kidney disease, stage 4 (severe)

== ENCOUNTER → 2025-07-28 10:37 | Outpatient (BNVA) | payer OTHER, SELFPAY | PROVIDERS: PCP Internal Medicine; Visit Provider Registered Nurse Diabetes Educator | DX: E11.22 Type 2 diabetes mellitus with diabetic chronic kidney disease (principal); N18.4 Chronic kidney disease, stage 4 (severe); Z79.4 Long term (current) use of insulin | CPT/HCPCS: 99211 ==

== ENCOUNTER 2025-07-31 13:30 | Outpatient (REF) | payer OTHER, SELFPAY ==
[2025-07-31 13:49] LABS: MANUAL DIFF FLAG NO
[2025-07-31 14:28] LABS: Hematocrit 38.2 % (37.0-47.0); Hemoglobin 12.3 g/dl (12.0-16.0); Imm Gran Abs Auto 0.04 X10*3/uL (0.00-0.03); Imm Gran Pct Auto 0.7 % (0.0-0.4); Lymphocytes Absolute Auto 1.1 X10*3/uL (1.2-4.9); Mean Corpuscular HGB Conc 32.2 g/dl (31.0-35.0); Mean Corpuscular Hemoglobin 30.8 pg (27.0-33.0); Mean Corpuscular Volume 95.5 fL (80.0-98.0); NRBC Abs Auto 0.000 X10*3/uL (0.0-0.012); NRBC Pct Auto 0.0 /100WBC (0.0-0.2); Platelet Count 223 X10*3/uL (160-400); Red Blood Count 4.00 X10*6/uL (4.20-5.50); White Blood Count 5.9 X10*3/uL (4.8-10.8)
[2025-07-31 17:18] LABS: Parathyroid Hormone Intact 183.8 pg/mL (8.7-77.1)
[2025-07-31 17:21] LABS: Anion Gap 11 (12-20); Blood Urea Nitrogen 50 mg/dL (9-16); Calcium 9.9 mg/dL (8.4-10.2); Carbon Dioxide 26 mmol/L (22-29); Chloride 104 mmol/L (96-108); Estimated Glomerular Filt Rate 16; Potassium 5.0 mmol/L (3.3-5.1); Sodium 136 mmol/L (135-145)
== END 2025-07-31 13:31 | disposition home or self-care (01) ==
LOC: HO.LAB 13:30
PROVIDERS: PCP Internal Medicine; Visit Provider Internal Medicine Nephrology
DX: E11.22 Type 2 diabetes mellitus with diabetic chronic kidney disease (principal); I12.9 Hypertensive chronic kidney disease with stage 1 through stage 4 chronic kidney disease, or unspecified chronic kidney disease; N18.4 Chronic kidney disease, stage 4 (severe); N25.81 Secondary hyperparathyroidism of renal origin
CPT/HCPCS: 36415; 80051; 82306; 82310; 82565; 83970; 84100; 84520; 85025

== ENCOUNTER 2025-08-04 12:45 | Outpatient (AMB) | payer OTHER, SELFPAY ==
--- OUTSIDE RECORDS SUMMARY | 2024-12-02 10:00 | XMS_ITS ---
Author Organization [facility] Address [address] [facility] [place] [address] Care Team Providers Care Manager Farm Name Role Phone Rizwan SORENSON, Boaz Primary Care Provider Yarely Medina Unavailable [phone] Medications Medication SIG (Take, Route, Frequency, Duration) [...] day; Duration: 30 days 06/06/2023 Active Nystatin 500208 UNIT/GM 1 application Externally Twice a day [...] Active Encounters Encounter Location Date Provider Diagnosis [facility] [address] [address] 12/02/2024 Yarely Gibbs Plan Of Treatment Next Appt Details Provider Name:Yarely puckett, 08/18/2025 10:45:00 AM, [address] [place] [address], [phone], Progress Notes * Alicia DUONGDOB:1945 (79 yo F)Acc No.[id number]:12/02/2024 Progress Note Patient: Alicia ROQUE Provider: Jarad Gibbs DPM :1945 A ge:79 Y S ex:Female Date:12/02/2024 Address:[address] [place], [place] [phone] Pcp:Boaz Astorga MD Subjective: * Chief Complaints: [...] needed Twice a day , Not-Taking/PRN Nystatin 071179 UNIT/GM Cream 1 application Externally Twice a [...] Generated for Mary Ann Carbone on: 1 03:24 PM EDT History and Physical Notes * HPI (History of Present Illness) Category Sub-Category Detail Notes Category Not es At Risk footcare Pt States Last PCP Visit: Date: 4
--- OUTSIDE RECORDS SUMMARY | 2025-02-18 07:30 | XMS_ITS ---
Author Organization [facility] Address [address] [place] [address] Care Team Providers Care Ink Printer Name Role Phone Rizwan SORENSON, Boaz Primary Care Provider UnaYarely White Unavailable [phone] Encounters Encounter Location Date Provider Diagnosis [address] [address] 02/18/2025 Yarely Gibbs Plan Of Treatment Next Appt Details Provider Name:Yarely puckett, 08/18/2025 10:45:00 AM, [address] [place] [address], [address], Progress Notes * Alicia DUONGDOB:1945 (79 yo F)Acc No.[id number]:02/18/2025 Progress Note Patient: Alicia ROQUE Provider: Jarad Gibbs DPM :1945 A ge:79 Y S ex:Female Date:02/18/2025 Address:[address] [facility] [address], [place], [place] Pcp:Boaz Astorga MD Subjective: * Chief Complaints: [...] Generated for Mary Ann baca/Suzy/Jonathonitting on: 1 03:25 PM EDT
--- OUTSIDE RECORDS SUMMARY | 2025-07-07 11:00 | XMS_ITS ---
Author Organization [facility] Address [address] [place] [address] Care Team Providers Care Cardroom Attendant Name Role Phone Rizwan SORENSON, Boaz Primary Care Provider UnaYarely White Unavailable [phone] Encounters Encounter Location Date Provider Diagnosis [address] [address] 07/07/2025 Yarely Gibbs Plan Of Treatment Next Appt Details Provider Name:Yarely puckett, 08/18/2025 10:45:00 AM, [address] [place] [address], [address], Progress Notes * Alicia DUONGDOB:1945 (79 yo F)Acc No.[id number]:07/07/2025 Progress Note Patient: Alicia ROQUE Provider: Jarad Gibbs DPM :1945 A ge:79 Y S ex:Female Date:07/07/2025 Address:[address] [facility] [address], [place] Pcp:Boaz Astorga MD Subjective: * Chief Complaints: [...] Generated for Mary Ann baca/Suzy/Jonathonitting on: 1 03:24 PM EDT
[2025-08-04 12:57] VITALS: BP 134/78; PULSE 66; O2SAT 95; BMI 27.1
--- NOTE | 2025-08-04 12:57 | A.OFFVIS_ITS ---
Vital Signs 08/04/25 12:57 Height 5 ft Weight 138 lb 14.259 oz BMI 27.1 BP 134/78 Blood Pressure Location Rt brachial Position Sitting Pulse 66 Pulse Source Pulse Oximeter Pulse Oximetry (%) 95 Oxygen Delivery Method Room Air Intake Visit Reasons: T2DM Intake Note: Patient present today to follow up on Type 2 Diabetes Mellitus. Last Diabetic Eye exam: 04/03/2025 [facility] Last Podiatry Visit: Does not see a Stained Glass Artist Random Glucose: 221 mg/dL Hgb A1C: 9.0% 06/13/2025 [address] Crossing Guard Required: No Accompanied by: TEACHER HEARING IMPAIRED Allergies aspirin (Aspirin) Allergy (Severe, Verified 08/04/25 13:03) MOUTH SWELLING hydrochlorothiazide (Hydrochlorothiazide) Allergy (Intermediate, Verified 08/04/25 13:03) DROP IN BLOOD PRESSURE Penicillins (PENICILLINS) Allergy (Intermediate, Verified 08/04/25 13:03) ITCHING caffeine (Caffeine) Allergy (Mild, Verified 08/04/25 13:03) NERVOUSNESS lisinopril (Lisinopril) Allergy (Mild, Verified 08/04/25 13:03) CHANGES IN BLOOD PRESSURE ranitidine (RANITIDINE) Allergy (Mild, Verified 08/04/25 13:03) HEADACHE amlodipine (AMLODIPINE) Allergy (Unknown, Verified 08/04/25 13:03) UNKNOWN amoxicillin Allergy (Unknown, Verified 08/04/25 13:03) itching, severe with rash diclofenac Allergy (Unknown, Verified 08/04/25 13:03) Unknown escitalopram Allergy (Unknown, Verified 08/04/25 13:03) abdominal discomfort, drowsiness esomeprazole (Nexium) Allergy (Unknown, Verified 08/04/25 13:03) Unknown isosorbide (ISOSORBIDE) Allergy (Unknown, Verified 08/04/25 13:03) UNKNOWN lidocaine (Lidoderm) Allergy (Unknown, Verified 08/04/25 13:03) weakness mirtazapine Allergy (Unknown, Verified 08/04/25 13:03) Unknown nystatin Allergy (Unknown, Verified 08/04/25 13:03) rash sertraline (SERTRALINE) Allergy (Unknown, Verified 08/04/25 13:03) UNKNOWN dexlansoprazole (From DEXILANT) Adverse Reaction (Severe, Verified 08/04/25 13:03) AGITATION hydrocortisone (From Cortizone-10) Adverse Reaction (Mild, Verified 08/04/25 13:03) RAISES BLOOD SUGAR semaglutide (From Ozempic) Adverse Reaction (Mild, Verified 08/04/25 13:03) gerd topiramate (From TOPAMAX) Adverse Reaction (Unknown, Verified 08/04/25 13:03) AGITATION trajenta Allergy (Severe, Uncoded 08/04/25 13:03) numbness From PLAVIX Allergy (Unknown, Uncoded 08/04/25 13:03) PT UNSURE OF REACTION Medical tape Allergy (Unknown, Uncoded 08/04/25 13:03) Rash Medication List - Last Reconciled 08/04/25 by AGUSTIN Renee acetaminophen (Tylenol Extra Strength) 500 mg PO .TWICE A DAY PRN alprazolam 0.5 mg PO BID PRN blood sugar diagnostic (OneTouch Ultra Test strips) USE DIRECTED TO TEST BLOOD SUGAR FOUR TIMES DAILY blood sugar diagnostic (OneTouch Ultra Test strips) As directed to test blood sugar three times daily. buspirone 7.5 mg PO DAILY carvedilol 6.25 mg PO BID 90 days cholecalciferol (vitamin D3) 50 mcg PO DAILY ciclopirox 0.77% appl topical BID clotrimazole-betamethasone 1-0.05 % 1 appl topical BID PRN compr.stocking,knee,long,large As directed [gloves As directed] [incontinent liners As directed] insulin lispro (Humalog KwikPen (U-100) Insulin) subcutaneously 2 times a day; Take 6 units before breakfast and 2 units before bedtime snack. lancets (OptonyTouch Delica Plus Lancet) USE FOUR TIMES DAILY methylcellulose (laxative) (Citrucel) 500 mg PO DAILY multivit with min-folic acid 200 mcg (Adult Multivitamin Gummies) 1 tab PO DAILY pantoprazole 40 mg PO DAILY 90 days pen needle, diabetic bid NS propylene glycol 0.6% (Systane Balance) 1 drp ophthalmic (eye) BID PRN rosuvastatin 40 mg PO DAILY 90 days sennosides 17.2 mg (2 x 8.6 mg) PO DAILY spironolactone 25 mg PO DAILY HPI Comments Details: This is an 79-year-old female presenting for management of type 2 diabetes. Since our last visit she met with a certified extension educator. There was concern that she was not taking her insulin as prescribed. Current regimen: Toujeo 6 units daily and lispro 2 units before dinner She is actually taking Lispro 6 unit before breakfast and no Toujeo. Hemoglobin A1c 9% 06/13/25. I reviewed her glucometer download from July 21 to August 04 She is in range 74% of the time Glucose 164 average Lowest 109, highest 301 Average 3 readings per day She has hyperglycemia late at night. She has a snack at night usually around 830 or 9 pm consisting of Cheerios or something similar. Past medications: Tradjenta made her feel sick Metformin and Januvia caused weight gain Trulicity was not effective and she had GI symptoms and weakness Ozempic was stopped secondary to weight loss and GERD Complications: She has nephropathy followed by Dr. Madrigal. She has hyperlipidemia, on statin. She is seen by Cardiology for cardiomyopathy with recent echo showing ejection fraction of 40-45%. ROS: Constitutional: No unexplained weight loss, fever, chills Eyes: No vision changes, blurry vision, double vision, eye pain Neurologic: No dizziness, syncope, headaches, weakness Hematologic/Lymphatics: No bleeding or bruising. Endocrine: No polyuria or polydipsia. Physical exam: Constitutional: Alert, in no distress. Neck: Supple, Full range of motion. No lymphadenopathy. No palpable thyroid masses. Respiratory: Clear to auscultation. Cardiovascular: S1 S2 regular. No murmurs. Neurologic: No focal neurological deficits. Moves all extremities spontaneously. Feet: There is some mild dry skin on the heels. No open wounds. Intact DP pulses. 1+ lower extremity edema. COUNT INCLUDES THE [facility] Medical History Hyperparathyroidism Left bundle branch block Type 2 diabetes mellitus with chronic kidney disease Chronic kidney disease, stage 4 (severe) Type 2 diabetes mellitus Obesity Skin abrasion HARRIET (renal artery stenosis) Nonischemic cardiomyopathy Urinary incontinence GERD (gastroesophageal reflux disease) COVID-19 Pneumonia due to COVID-19 virus Vertigo Obesity (BMI 30-39.9) Depression Anxiety Stasis edema of both lower extremities Cardiomyopathy Pure hypercholesterolemia Hyperkalemia Renal artery stenosis Benign essential hypertension Conjunctival hemorrhage of right eye Surgical History Hx of colonoscopy Hx of myomectomy History of cataract surgery History of lumpectomy of left breast History of cholecystectomy Family History Father CVD (cardiovascular disease) Myocardial infarction Mother Myocardial infarction CVD (cardiovascular disease) Brother Myocardial infarction Family/Other FH: prostate cancer Social History Household Members: None Housing: Apartment Do you presently have visiting nurse or other home services: No Alcohol intake: never Patient Tobacco Use Status: Former Tobacco user Tobacco use type: Cigarette e-Cigarette/Vaping Use: Never Used Second Hand Smoke Exposure: No Advance Directives Date on File: 08/06/21 service: No Current occupational status: disabled Cognitive needs: No Hearing needs: No Vision needs: Yes Physical Exam Vital Signs: Last Vital Signs Pulse 66 08/04/25 12:57 BP 134/78 08/04/25 12:57 Pulse Ox 95 08/04/25 12:57 Oxygen Delivery Method Room Air 08/04/25 12:57 BMI result Body Mass Index 27.1 Results Reviewed Results Reviewed: Laboratory Last Values Glucose (Clinic) 221 mg/dL (60-115) H 08/04/25 13:12 Laboratory Tests 06/13/25 06/13/25 08:47 08:48 Plt Count 210 Creatinine 2.62 H Estimated GFR 18 Hemoglobin A1c % 9.0 H AST 33 H ALT 23 TSH 2.56 Urine Creatinine 37.22 Urine Microalbumin 17.0 Microalb/Creat Ratio 45.6 H Assessment & Plan Assessment & Plan (1) Type 2 diabetes mellitus: Code(s): E11.9 - Type 2 diabetes mellitus without complications Category: Medical Qualifiers: 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 senior care insulin use: without senior care use 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 complication status: with kidney complications 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 complication detail: with chronic kidney disease Chronic kidney disease stage: stage 4 (severe) Qualified Code(s): E11.22 - Type 2 diabetes mellitus with diabetic chronic kidney disease; N18.4 - Chronic kidney disease, stage 4 (severe) (2) Benign essential hypertension: Code(s): I10 - Essential (primary) hypertension Category: Medical Plan In summary this is an 79-year-old female with uncontrolled type 2 diabetes, however her glucose readings have improved. I discontinued Toujeo since she is not taking this medication. Her blood sugars are usually within target in the morning and afternoon. She has hyperglycemia late night after snacking. She will continue lispro 6 units before breakfast and administer 2 units before her bedtime snack. If her blood sugars after the bedtime snack are still over 180 she can increase to 3 or 4 units. She has written instructions to treat hypoglycemia. She has glucose tablets. Her blood pressure is technically suboptimal, but mild permissive hypertension at her age is reasonable. Continue current regimen. She has an appointment with me the week september for follow up. Medications: Changed From insulin lispro (Humalog KwikPen (U-100) Insulin) Take 2 units 10-15 minutes before dinner if blood sugar is over 200. 2 units (0.02 mL) subcut .before dinner 15 mL 4RF To insulin lispro (Humalog KwikPen (U-100) Insulin) subcutaneously 2 times a day; Take 6 units before breakfast and 2 units before bedtime snack. Discontinued Toujeo SoloStar U-300 Insulin (insulin glargine U-300 conc) Replaces lantus. Discontinued Reason: Doctor's Order 6 units (0.02 mL) subcut DAILY 4.5 mL 4RF NS Patient Instructions: Continue lispro insulin 6 units before breakfast Start lispro insulin 2 units before snack at bedtime. If blood sugars after snack are more than 180 still, increase to 3 to 4 units before bedtime snack. If you experience low blood sugar (under 70), treat this by eating a chewable fruit candy like skittles or jelly beans (about 8 pieces), 4 ounces (1/2 cup) of fruit juice (not diet), 1 tablespoon of honey or 4 glucose tablets. If your blood sugar is under 50, take double the amount of one of the above. Recheck your blood sugar in 15 minutes. Coding Level of Care Code Est Pt Level 4 (20509) Complex EM visit Add On G2211 Diagnoses Type 2 diabetes mellitus with stage 4 chronic kidney disease, without long-term current use of insulin E11.22; N18.4 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 supervisor scenic arts insulin use: without senior care use 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 complication status: with kidney complications 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 complication detail: with chronic kidney disease Chronic kidney disease stage: stage 4 (severe) Benign essential hypertension I10
[2025-08-04 13:16] LABS: Glucose, Whole Blood 221 mg/dL (60-115)
--- OUTSIDE RECORDS SUMMARY | 2025-08-04 15:25 | XMS_ITS | Patient Health Record ---
[facility] Address [address] [place] [address] Care Team Providers Care Decorating Consultant Name Role Phone Robel Astorga MDh Primary Care Provider Yarely Medina Unavailable [phone] Allergies Allergen (clinical drug ingredient) Drug/Non Drug [...] Boaz Referring Provider Last Name Rizwan Referred [facility] Referred Provider Yarely Gibbs Referred Address [address] [place], [place],[address], Referred Provider Specialty Podiatry Referral Priority Routine [...] a day; Duration: 30 day(s) Active Nystatin 214663 UNIT/GM 1 application Externally Twice a day [...] Problem Acquired hammer toe of right foot (30500280109242 05) Other hammer toe(s) (acquired), right foot (M20.41) Active confirmed Problem Type 2 diabetes mellitus with peripheral angiopathy (327698906) Type 2 diabetes mellitus with diabetic peripheral angiopathy without gangrene (E11.51) Active confirmed Problem Acquired hammer toe of left foot (29459946969887 03) Other hammer toe(s) (acquired), left foot (M20.42) Active confirmed Vital Signs Blood pressure diastolic 71 mm Hg 04/14/2025 Height 5 ft in 04/14/2025 Blood pressure systolic 146 mm Hg 04/14/2025 Weight 136 lbs 04/14/2025 BMI 26.56 kg/m2 04/14/2025 Encounters Encounter Location Date Provider Diagnosis [address] [address] 09/17/2024 Yarely Gibbs Tinea pedis of both feet B35.3 ; Type 2 diabetes mellitus with diabetic peripheral angiopathy without gangrene E11.51 ; Tinea unguium B35.1 ; Pain in left toe(s) M79.675 ; Pain in right toe(s) M79.674 and Xerosis cutis L85.[address] [address] 01/21/2025 Yarely Gibbs Tinea pedis of both feet B35.3 ; Other hammer toe(s) (acquired), right foot M20.41 ; Type 2 diabetes mellitus with diabetic peripheral angiopathy without gangrene E11.51 ; Tinea unguium B35.1 ; Pain in left toe(s) M79.675 ; Pain in right toe(s) M79.674 ; Xerosis cutis L85.3 and Other hammer toe(s) (acquired), left foot M20.[address] [address] 04/14/2025 Yarely Gibbs Type 2 diabetes mellitus with diabetic peripheral angiopathy without gangrene E11.51 ; Tinea unguium B35.1 ; Pain in left toe(s) M79.675 and Pain in right toe(s) M79.674 [facility] [address] [address] 12/02/2024 Yarely Gibbs [facility] [address] [address] 01/21/2025 Yarely Perica [facility] [address] [address] 07/07/2025 Yarely Perica [facility] [address] [address] 07/16/2025 Yarely Gibbs Assessments Encounter Date Diagnosis [...] Details Provider Name:Yarely puckett, 08/18/2025 10:45:00 AM, [address] [place] [address], [id number], Insurance Providers Payer Name Payer Address Payer Phone Subscriber Number Group Number Insured Name Patient Relationship to Insured Coverage Start Date Coverage End Date [facility] [address] [place] [phone] [id number] Alicia Noel Self - patient is the [...]
== END 2025-08-04 13:53 | disposition home or self-care (01) ==
LOC: HO.ENCR 12:46
PROVIDERS: PCP Internal Medicine; Visit Provider Physician Assistant Medical
DX: E11.22 Type 2 diabetes mellitus with diabetic chronic kidney disease (principal); N18.4 Chronic kidney disease, stage 4 (severe); I12.9 Hypertensive chronic kidney disease with stage 1 through stage 4 chronic kidney disease, or unspecified chronic kidney disease

== ENCOUNTER → 2025-08-04 12:45 | Outpatient (BNVA) | payer OTHER, SELFPAY | PROVIDERS: PCP Internal Medicine; Visit Provider Physician Assistant Medical | DX: E11.22 Type 2 diabetes mellitus with diabetic chronic kidney disease (principal); N18.4 Chronic kidney disease, stage 4 (severe); I10 Essential (primary) hypertension | CPT/HCPCS: 82947; 99212 ==

== ENCOUNTER 2025-08-07 12:17 | Outpatient (AMB) | payer OTHER, SELFPAY ==
--- OUTSIDE RECORDS SUMMARY | 2024-05-27 09:30 | XMS_ITS ---
Author Organization [facility] Address [address] [place] [address] Care Team Providers Care Pearl Peller Name Role Phone Rizwan SORENSON, Boaz Primary Care Provider Yarely Medina Unavailable [phone] Medications Medication SIG (Take, Route, Frequency, Duration) [...] a day; Duration: 7 days Not-Taking Nystatin [id number] UNIT/GM 1 application Externally Twice a day [...] Active Encounters Encounter Location Date Provider Diagnosis [facility] [address] [address] 05/27/2024 Yarely Gibbs Plan Of Treatment Next Appt Details Provider Name:Yarely puckett, 08/18/2025 10:45:00 AM, [address] [place] [address], [phone], Progress Notes * Alicia DUONGDOB:1945 (79 yo F)Acc No.[id number]:05/27/2024 Progress Note Patient: Alicia ROQUE Provider: Jarad Gibbs DPM :1945 A ge:78 Y S ex:Female Date:05/27/2024 Address:[address] [place], [place] [id number] Pcp:Boaz Astorga MD Subjective: * Chief Complaints: [...] needed Twice a day , Not-Taking/PRN Nystatin [id number] UNIT/GM Cream 1 application Externally Twice a [...] Generated for Mary Ann baca/Suzy/eTransmitting on: 1 02:50 PM EDT History and Physical Notes * HPI (History of Present Illness) Category Sub-Category Detail Notes Category Not es At Risk footcare Pt States Last PCP Visit: Date: 4
--- OUTSIDE RECORDS SUMMARY | 2024-12-02 10:00 | XMS_ITS ---
Author Organization [facility] Address [address] [facility] [place] [address] Care Team Providers Care Soap Worker Name Role Phone Rizwan SORENSON, Boaz Primary Care Provider Yarely Medina Unavailable [phone] Medications Medication SIG (Take, Route, Frequency, Duration) [...] day; Duration: 30 days 06/06/2023 Active Nystatin 192342 UNIT/GM 1 application Externally Twice a day [...] Active Encounters Encounter Location Date Provider Diagnosis [facility] [address] [address] 12/02/2024 Yarely Gibbs Plan Of Treatment Next Appt Details Provider Name:Yarely puckett, 08/18/2025 10:45:00 AM, [address] [place] [address], [phone], Progress Notes * Alicia DUONGDOB:1945 (79 yo F)Acc No.[id number]:12/02/2024 Progress Note Patient: Alicia ROQUE Provider: Jarad Gibbs DPM :1945 A ge:79 Y S ex:Female Date:12/02/2024 Address:[address] [place], [place] [phone] Pcp:Boaz Astorga MD Subjective: * Chief Complaints: [...] needed Twice a day , Not-Taking/PRN Nystatin 557793 UNIT/GM Cream 1 application Externally Twice a [...] Generated for Mary Ann Carbone on: 1 02:50 PM EDT History and Physical Notes * HPI (History of Present Illness) Category Sub-Category Detail Notes Category Not es At Risk footcare Pt States Last PCP Visit: Date: 4
--- OUTSIDE RECORDS SUMMARY | 2025-02-18 07:30 | XMS_ITS ---
Author Organization [facility] Address [address] [place] [address] Care Team Providers Care Insurance Verification Specialist Name Role Phone Rizwan SORENSON, Boaz Primary Care Provider UnaYarely White Unavailable [phone] Encounters Encounter Location Date Provider Diagnosis [address] [address] 02/18/2025 Yarely Gibbs Plan Of Treatment Next Appt Details Provider Name:Yarely puckett, 08/18/2025 10:45:00 AM, [address] [place] [address], [address], Progress Notes * Alicia DUONGDOB:1945 (79 yo F)Acc No.[id number]:02/18/2025 Progress Note Patient: Alicia ROQUE Provider: Jarad Gibbs DPM :1945 A ge:79 Y S ex:Female Date:02/18/2025 Address:[address] [facility] [address], [place], [place] Pcp:Boaz Astorga MD Subjective: * Chief Complaints: [...] Generated for Mary Ann baca/Suzy/Jonathonitting on: 1 02:50 PM EDT
--- OUTSIDE RECORDS SUMMARY | 2025-07-07 11:00 | XMS_ITS ---
Author Organization [facility] Address [address] [place] [address] Care Team Providers Care Boat Deckhand Name Role Phone Rizwan SORENSON, Boaz Primary Care Provider UnaYarely White Unavailable [phone] Encounters Encounter Location Date Provider Diagnosis [address] [address] 07/07/2025 Yarely Gibbs Plan Of Treatment Next Appt Details Provider Name:Yarely puckett, 08/18/2025 10:45:00 AM, [address] [place] [address], [address], Progress Notes * Alicia DUONGDOB:1945 (79 yo F)Acc No.[id number]:07/07/2025 Progress Note Patient: Alicia ROQUE Provider: Jarad Gibbs DPM :1945 A ge:79 Y S ex:Female Date:07/07/2025 Address:[address] [facility] [address], [place], [place] Pcp:Boaz Astorga MD Subjective: * Chief Complaints: [...] Date: 0 07/07/2025 Generated for Mary Ann baca/Suzy/Jonathonitting on: 1 02:50 PM EDT
--- NOTE | 2025-08-07 12:19 | HO.NEPHOV ---
Vital Signs 08/07/25 12:21 Height 5 ft Weight 139 lb BMI 27.1 BP 148/70 H Blood Pressure Location Rt brachial Position Sitting Pulse 71 Pulse Source Pulse Oximeter Pulse Oximetry (%) 99 Oxygen Delivery Method Room Air Intake Visit Reasons: 2mon f/u w/labs-Conf Switchboard And Control Room Operator Required: No Accompanied by: Self / Same As Patient Allergies aspirin (Aspirin) Allergy (Severe, Verified 08/07/25 12:21) MOUTH SWELLING hydrochlorothiazide (Hydrochlorothiazide) Allergy (Intermediate, Verified 08/07/25 12:21) DROP IN BLOOD PRESSURE Penicillins (PENICILLINS) Allergy (Intermediate, Verified 08/07/25 12:21) ITCHING caffeine (Caffeine) Allergy (Mild, Verified 08/07/25 12:21) NERVOUSNESS lisinopril (Lisinopril) Allergy (Mild, Verified 08/07/25 12:21) CHANGES IN BLOOD PRESSURE ranitidine (RANITIDINE) Allergy (Mild, Verified 08/07/25 12:21) HEADACHE amlodipine (AMLODIPINE) Allergy (Unknown, Verified 08/07/25 12:21) UNKNOWN amoxicillin Allergy (Unknown, Verified 08/07/25 12:21) itching, severe with rash diclofenac Allergy (Unknown, Verified 08/07/25 12:21) Unknown escitalopram Allergy (Unknown, Verified 08/07/25 12:21) abdominal discomfort, drowsiness esomeprazole (Nexium) Allergy (Unknown, Verified 08/07/25 12:21) Unknown isosorbide (ISOSORBIDE) Allergy (Unknown, Verified 08/07/25 12:21) UNKNOWN lidocaine (Lidoderm) Allergy (Unknown, Verified 08/07/25 12:21) weakness mirtazapine Allergy (Unknown, Verified 08/07/25 12:21) Unknown nystatin Allergy (Unknown, Verified 08/07/25 12:21) rash sertraline (SERTRALINE) Allergy (Unknown, Verified 08/07/25 12:21) UNKNOWN dexlansoprazole (From DEXILANT) Adverse Reaction (Severe, Verified 08/07/25 12:21) AGITATION hydrocortisone (From Cortizone-10) Adverse Reaction (Mild, Verified 08/07/25 12:21) RAISES BLOOD SUGAR semaglutide (From Ozempic) Adverse Reaction (Mild, Verified 08/07/25 12:21) gerd topiramate (From TOPAMAX) Adverse Reaction (Unknown, Verified 08/07/25 12:21) AGITATION trajenta Allergy (Severe, Uncoded 08/04/25 13:03) numbness From PLAVIX Allergy (Unknown, Uncoded 08/04/25 13:03) PT UNSURE OF REACTION Medical tape Allergy (Unknown, Uncoded 08/04/25 13:03) Rash HPI Comments Details: Alicia was seen in follow for her advanced CKD. She is known to have DM for a long time. She had a questionable allergy reaction to it and was seen in ER where her DPP4 was D/John. Her BS is fluctuant. She also has hypertension. She does not take NSAID's regularly. She denies any nausea, vomiting, diarrhea, SOB, edema, PND, orthopnea, hematuria, hearing deficits. She claims to be compliant with medications. She is not on SGLT2i. She has no sinusitis, epistaxis, photosensitivity, bone pain, sore throat , hemoptysis, skin lesions or recent antibiotic intake. Her BP at home has been at goal. [facility] Medical History Hyperparathyroidism Left bundle branch block Type 2 diabetes mellitus with chronic kidney disease Chronic kidney disease, stage 4 (severe) Type 2 diabetes mellitus Obesity Skin abrasion HARRIET (renal artery stenosis) Nonischemic cardiomyopathy Urinary incontinence GERD (gastroesophageal reflux disease) COVID-19 Pneumonia due to COVID-19 virus Vertigo Obesity (BMI 30-39.9) Depression Anxiety Stasis edema of both lower extremities Cardiomyopathy Pure hypercholesterolemia Hyperkalemia Renal artery stenosis Benign essential hypertension Conjunctival hemorrhage of right eye Surgical History Hx of colonoscopy Hx of myomectomy History of cataract surgery History of lumpectomy of left breast History of cholecystectomy Family History Father CVD (cardiovascular disease) Myocardial infarction Mother Myocardial infarction CVD (cardiovascular disease) Brother Myocardial infarction Family/Other FH: prostate cancer Social History Household Members: None Housing: Apartment Do you presently have visiting nurse or other home services: No Alcohol intake: never Patient Tobacco Use Status: Former Tobacco user Tobacco use type: Cigarette e-Cigarette/Vaping Use: Never Used Second Hand Smoke Exposure: No Advance Directives Date on File: 08/06/21 service: No Current occupational status: disabled Cognitive needs: No Hearing needs: No Vision needs: Yes Review of Systems Const All systems reviewed & are unremarkable except as noted in HPI and below Physical Exam Vital Signs: Last Vital Signs Pulse 71 08/07/25 12:21 BP 148/70 H 08/07/25 12:21 Pulse Ox 99 08/07/25 12:21 Oxygen Delivery Method Room Air 08/07/25 12:21 BMI result Body Mass Index 27.1 Const General: comfortable and no acute distress Orientation/consciousness: patient oriented x3 HEENT Head: Yes normocephalic Mouth: Normal oral and palatal mucosa present Eyes EOM: EOMs intact bilaterally Neck Neck: Yes supple Resp Auscultation: clear to auscultation bilaterally Cardio Jugular venous distension: no JVD Rate: regular rate GI Palpation (GI): Soft to palpation Auscultation: normal bowel sounds General: Yes no CVA tenderness Back/Spine/Pelvis Back: no CVA tenderness Skin General skin exam: no rashes or lesions noted Neuro General: patient oriented x3 and moves all extremities Extrem General: Yes no pedal edema Results Reviewed Nephrology Results: Hgb, (12.0-16.0) 12.3 g/dl 07/31/25 WBC, (4.8-10.8) 5.9 X10*3/uL 07/31/25 Plt Count, (160-400) 223 X10*3/uL 07/31/25 Sodium, (135-145) 136 mmol/L 07/31/25 Potassium, (3.3-5.1) 5.0 mmol/L 07/31/25 Chloride, (96-108) 104 mmol/L 07/31/25 Carbon Dioxide, (22-29) 26 mmol/L 07/31/25 BUN, (9-16) 50 mg/dL H 07/31/25 Creatinine, (0.5-1.4) 2.88 mg/dL H 07/31/25 Calcium, (8.4-10.2) 9.9 mg/dL 07/31/25 Phosphorus, (2.7-4.5) 3.6 mg/dL 07/31/25 PTH Intact, (8.7-77.1) 183.8 pg/mL H 07/31/25 Renal US 06/20/24 Assessment & Plan Assessment & Plan (1) Benign essential hypertension: Code(s): I10 - Essential (primary) hypertension Category: Medical (2) Secondary hyperparathyroidism (of renal origin): Code(s): N25.81 - Secondary hyperparathyroidism of renal origin Category: Medical (3) Chronic kidney disease, stage 4 (severe): Code(s): N18.4 - Chronic kidney disease, stage 4 (severe) Category: Medical Plan BP at goal at home. 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 Based on published guidelines in J Am Abdoulaye Radiol 2013; 10(10):789-794 and J Vasc Surg. 2018; 67:2-77, the recommendation for an abdominal aorta with diameter 2.6-2.9 cm is follow-up every 5 years if the aorta that meets the criteria for AAA (>1.5 x proximal normal segment; no f/u if < 1.5 x proximal normal segment; no f/u for aorta < 2.6 cm) Had 24 hour urine for cr cl-- stable Aware about renal replacement if her renal func declines C/W Vitamin D 2000 U daily Will need activated Vitamin D soon Follow up labs ordered; F/U in 2 months Orders: Orders Calcium 2 Months I10 - Essential (primary) hypertension, N18.4 - Chronic kidney disease, stage 4 (severe), N25.81 - Secondary hyperparathyroidism of renal origin Blood Urea Nitrogen 2 Months I10 - Essential (primary) hypertension, N18.4 - Chronic kidney disease, stage 4 (severe), N25.81 - Secondary hyperparathyroidism of renal origin Creatinine 2 Months I10 - Essential (primary) hypertension, N18.4 - Chronic kidney disease, stage 4 (severe), N25.81 - Secondary hyperparathyroidism of renal origin Vitamin D 25-OH Total 2 Months I10 - Essential (primary) hypertension, N18.4 - Chronic kidney disease, stage 4 (severe), N25.81 - Secondary hyperparathyroidism of renal origin Complete Blood Count Auto Diff 2 Months I10 - Essential (primary) hypertension, N18.4 - Chronic kidney disease, stage 4 (severe), N25.81 - Secondary hyperparathyroidism of renal origin Electrolytes 2 Months I10 - Essential (primary) hypertension, N18.4 - Chronic kidney disease, stage 4 (severe), N25.81 - Secondary hyperparathyroidism of renal origin Parathyroid Hormone Intact 2 Months I10 - Essential (primary) hypertension, N18.4 - Chronic kidney disease, stage 4 (severe), N25.81 - Secondary hyperparathyroidism of renal origin Coding Level of Care Code Est Pt Level 4 (41221) Diagnoses Benign essential hypertension I10 Secondary hyperparathyroidism (of renal origin) N25.81 Chronic kidney disease, stage 4 (severe) N18.4
[2025-08-07 12:21] VITALS: BP 148/70; PULSE 71; O2SAT 99; BMI 27.1
--- OUTSIDE RECORDS SUMMARY | 2025-08-07 14:50 | XMS_ITS | Patient Health Record ---
Author Organization [facility] Address [address] [place] [address] Care Team Providers Care Equipment Operator Warehouse Name Role Phone Robel Astorga MDh Primary Care Provider Yarely Medina Unavailable [phone] Allergies Allergen (clinical drug ingredient) Drug/Non Drug [...] Boaz Referring Provider Last Name Rizwan Referred [facility] Referred Provider Yarely Gibbs Referred Address [address] [place], [place],[address], Referred Provider Specialty Podiatry Referral Priority Routine [...] open sores; Duration: 30 days 04/04/2022 Active Extra Depth Orthopedic Shoes, (1) Pair With (3) Pair Custom Heat Molded Multidensity Innersoles Dx: NIDDM/PVD(E11.51), Hammertoe Foot Deformity(M20.41,M20.42 ), Preulcerative Skin Lesion(s)(L85.1) Wear Daily; Patient prefers sandals or Sophia-Liliana style shoes; Duration: 365 days 01/21/2025 Active Ammonium Lactate 12 % APLIQUE EXTERNALLY TO BOTH FEET DOS VECES AL EVA FOR 30 DAYS; Duration: 30 Active Ozempic Not-Taking metFORMIN HCl 500 MG [...] a day; Duration: 30 day(s) Active Nystatin 794590 UNIT/GM 1 application Externally Twice a day [...] Problem Acquired hammer toe of right foot (38871395078584 05) Other hammer toe(s) (acquired), right foot (M20.41) Active confirmed Problem Type 2 diabetes mellitus with peripheral angiopathy (014844307) Type 2 diabetes mellitus with diabetic peripheral angiopathy without gangrene (E11.51) Active confirmed Problem Acquired hammer toe of left foot (52048341861148 03) Other hammer toe(s) (acquired), left foot (M20.42) Active confirmed Vital Signs Blood pressure diastolic 71 mm Hg 04/14/2025 Height 5 ft in 04/14/2025 Blood pressure systolic 146 mm Hg 04/14/2025 Weight 136 lbs 04/14/2025 BMI 26.56 kg/m2 04/14/2025 Encounters Encounter Location Date Provider Diagnosis [address] [address] 09/17/2024 Yarely Gibbs Tinea pedis of both feet B35.3 ; Type 2 diabetes mellitus with diabetic peripheral angiopathy without gangrene E11.51 ; Tinea unguium B35.1 ; Pain in left toe(s) M79.675 ; Pain in right toe(s) M79.674 and Xerosis cutis L85.[address] [address] 01/21/2025 Yarely Gibbs Tinea pedis of both feet B35.3 ; Other hammer toe(s) (acquired), right foot M20.41 ; Type 2 diabetes mellitus with diabetic peripheral angiopathy without gangrene E11.51 ; Tinea unguium B35.1 ; Pain in left toe(s) M79.675 ; Pain in right toe(s) M79.674 ; Xerosis cutis L85.3 and Other hammer toe(s) (acquired), left foot M20.[address] [address] 04/14/2025 Yarely Gibbs Type 2 diabetes mellitus with diabetic peripheral angiopathy without gangrene E11.51 ; Tinea unguium B35.1 ; Pain in left toe(s) M79.675 and Pain in right toe(s) M79.674 [facility] [address] [address] 12/02/2024 Yarely Gibbs [facility] [address] [address] 01/21/2025 Yarely [facility] [address] [address] 07/07/20[facility] [address] 07/16/2025 Yarely Gibbs Assessments Encounter Date Diagnosis [...] Details Provider Name:Yarely puckett, 08/18/2025 10:45:00 AM, [address] [place] [address], [id number], Insurance Providers Payer Name Payer Address Payer Phone Subscriber Number Group Number Insured Name Patient Relationship to Insured Coverage Start Date Coverage End Date [facility] Plan [address] [place] [phone] [id number] Alicia Noel Self - patient is the [...]
--- OUTSIDE RECORDS SUMMARY | 2025-08-07 14:50 | XMS_ITS | Clinical Summary ---
Author Organization [facility] Address [address] [place] [address] Phone Care Team Providers Care Vehicle Window Tinter Name Role Phone Boaz Astorga MD Primary Care Provider [phone] Allergies Active Allergy Reactions Criticality Noted Date [...] age to complete this topic Insurance [employer] [facility] ([id number]) [employer] [facility] ([id number]) Care Teams Vehicle Window Tinter Relationship Specialty Start Date End Date Boaz Astorga MD [address] [place] [address] PCP - General 11/01/20
== END 2025-08-07 12:40 | disposition home or self-care (01) ==
LOC: HO.HKA 12:18
PROVIDERS: PCP Internal Medicine; Visit Provider Internal Medicine Nephrology
DX: I12.9 Hypertensive chronic kidney disease with stage 1 through stage 4 chronic kidney disease, or unspecified chronic kidney disease (principal); N25.81 Secondary hyperparathyroidism of renal origin; N18.4 Chronic kidney disease, stage 4 (severe)
CPT/HCPCS: 99214

== ENCOUNTER → 2025-08-07 12:17 | Outpatient (BNVA) | payer OTHER, SELFPAY | PROVIDERS: PCP Internal Medicine; Visit Provider Internal Medicine Nephrology | DX: I10 Essential (primary) hypertension (principal); N25.81 Secondary hyperparathyroidism of renal origin; N18.4 Chronic kidney disease, stage 4 (severe) | CPT/HCPCS: 99212 ==

== ENCOUNTER 2025-08-26 11:09 | Outpatient (AMB) | payer OTHER, SELFPAY ==
--- NOTE | 2025-08-26 11:17 | MHC.OFFVIS ---
Vital Signs 08/26/25 11:18 Height 5 ft Weight 136 lb BMI 26.6 BP 140/64 H Blood Pressure Location Rt brachial Position Sitting Pulse 68 Pulse Source Pulse Oximeter Pulse Oximetry (%) 99 Oxygen Delivery Method Room Air Intake Visit Reasons: 3 month GERD Intake Note: Est pt for mgmt of [facility]. CC: Pt denies any new GI concerns or sx at this time. Confirms that her current Rx are working well for her. Data Processing Systems Consultant Required: No Accompanied by: Self / Same As Patient Allergies aspirin (Aspirin) Allergy (Severe, Verified 08/28/25 15:24) MOUTH SWELLING Penicillins (PENICILLINS) Allergy (Intermediate, Verified 08/28/25 15:24) ITCHING caffeine (Caffeine) Allergy (Mild, Verified 08/28/25 15:24) NERVOUSNESS lisinopril (Lisinopril) Allergy (Mild, Verified 08/28/25 15:24) CHANGES IN BLOOD PRESSURE ranitidine (RANITIDINE) Allergy (Mild, Verified 08/28/25 15:24) HEADACHE amlodipine (AMLODIPINE) Allergy (Unknown, Verified 08/28/25 15:24) UNKNOWN amoxicillin Allergy (Unknown, Verified 08/28/25 15:24) itching, severe with rash diclofenac Allergy (Unknown, Verified 08/28/25 15:24) Unknown escitalopram Allergy (Unknown, Verified 08/28/25 15:24) abdominal discomfort, drowsiness esomeprazole (Nexium) Allergy (Unknown, Verified 08/28/25 15:24) Unknown isosorbide (ISOSORBIDE) Allergy (Unknown, Verified 08/28/25 15:24) UNKNOWN lidocaine (Lidoderm) Allergy (Unknown, Verified 08/28/25 15:24) weakness mirtazapine Allergy (Unknown, Verified 08/28/25 15:24) Unknown nystatin Allergy (Unknown, Verified 08/28/25 15:24) rash sertraline (SERTRALINE) Allergy (Unknown, Verified 08/28/25 15:24) UNKNOWN dexlansoprazole (From DEXILANT) Adverse Reaction (Severe, Verified 08/28/25 15:24) AGITATION hydrochlorothiazide (Hydrochlorothiazide) Adverse Reaction (Intermediate, Verified 08/29/25 07:19) DROP IN BLOOD PRESSURE hydrocortisone (From Cortizone-10) Adverse Reaction (Mild, Verified 08/28/25 15:24) RAISES BLOOD SUGAR semaglutide (From Ozempic) Adverse Reaction (Mild, Verified 08/28/25 15:24) gerd topiramate (From TOPAMAX) Adverse Reaction (Unknown, Verified 08/28/25 15:24) AGITATION trajenta Allergy (Severe, Uncoded 08/28/25 15:24) numbness From PLAVIX Allergy (Unknown, Uncoded 08/28/25 15:24) PT UNSURE OF REACTION Medical tape Allergy (Unknown, Uncoded 08/28/25 15:24) Rash HPI HPI 3 month GERD: Details: LAST VISIT: GERD (gastroesophageal reflux disease) Chronic idiopathic constipation Plan Will continue taking pantoprazole daily. Avoid dietary triggers and late night snacking. Staying upright for minimum 3 hours after meals discussed with patient. Continue taking senna as needed. Increase fluid intake and activity to promote better bowel motility. Patient will return in the office in 3-4 months, sooner on as needed basis. She is agreeable to this plan and verbalizes understanding of instructions. She was given the opportunity to ask questions and all questions answered. TODAY'S VISIT Patient is here today for follow-up. Patient reports that she has been doing well. She is taking pantoprazole daily and her symptoms of acid reflux are suppressed. We have tried to decrease the does, however patient was beginning to have epigastric pain and symptoms. She is currently being followed by Nephrology for kidney disease. Patient has stage 4 kidney disease we have to be careful about given her PPI as or H2 blockers. We have discussed this with patient before. Better management of her diabetes. However patient reports that she has been feeling well. Denies any nausea or vomiting. Moving her bowels without any issues. Denies dyspepsia, dysphagia or odynophagia. Denies melena, hematochezia, unintentional weight loss or ribbon like stools [facility] Medical History Hyperparathyroidism Left bundle branch block Type 2 diabetes mellitus with chronic kidney disease Chronic kidney disease, stage 4 (severe) Type 2 diabetes mellitus Obesity Skin abrasion HARRIET (renal artery stenosis) Nonischemic cardiomyopathy Urinary incontinence GERD (gastroesophageal reflux disease) COVID-19 Pneumonia due to COVID-19 virus Vertigo Obesity (BMI 30-39.9) Depression Anxiety Stasis edema of both lower extremities Cardiomyopathy Pure hypercholesterolemia Hyperkalemia Renal artery stenosis Benign essential hypertension Conjunctival hemorrhage of right eye Surgical History Hx of colonoscopy Hx of myomectomy History of cataract surgery History of lumpectomy of left breast History of cholecystectomy Family History Father CVD (cardiovascular disease) Myocardial infarction Mother Myocardial infarction CVD (cardiovascular disease) Brother Myocardial infarction Family/Other FH: prostate cancer Social History Household Members: None Housing: Apartment Do you presently have visiting nurse or other home services: No Alcohol intake: never Patient Tobacco Use Status: Former Tobacco user Tobacco use type: Cigarette e-Cigarette/Vaping Use: Never Used Second Hand Smoke Exposure: No Advance Directives Date on File: 08/06/21 service: No Current occupational status: disabled Cognitive needs: No Hearing needs: No Vision needs: Yes Review of Systems Const Denies weight gain and Reports weight loss ENT Reports no additional complaints, Denies dysphagia and Denies odynophagia Card Reports no additional complaints Resp Reports no additional complaints GI Denies abdominal pain, Denies belching, Denies melena, Denies bloating, Denies change in bowel habits, Denies dysphagia, Denies excessive flatus, Denies dyspepsia, Denies heartburn, Denies diarrhea, Denies loose stools, Denies nausea, Denies odynophagia and Denies vomiting Reports no additional complaints Musc Reports no additional complaints Neuro Reports no additional complaints Psych Reports no additional complaints Endo Reports no additional complaints Physical Exam Vital Signs: Last Vital Signs Pulse 68 08/26/25 11:18 BP 140/64 H 08/26/25 11:18 Pulse Ox 99 08/26/25 11:18 Oxygen Delivery Method Room Air 08/26/25 11:18 BMI result Body Mass Index 26.6 Const General: healthy appearing, no acute distress and well developed Orientation/consciousness: patient oriented x3 Resp Effort & Inspection: normal respiratory effort, able to speak in complete sentences, no tracheal deviation and symmetric chest movement Auscultation: clear to auscultation bilaterally Cardio Rate: regular rate GI Inspection: Yes normal to inspection, No distended and Yes obesity Palpation (GI): Soft to palpation, not firm, nontender and No hepatosplenomegaly present Auscultation: normal bowel sounds General: Yes no CVA tenderness Back/Spine/Pelvis Back: no CVA tenderness Skin General skin exam: elasticity normal, turgor normal and dry skin Neuro General: patient oriented x3 Psych Appearance: grossly normal Mental Status: mental status grossly normal Assessment & Plan Assessment & Plan (1) GERD (gastroesophageal reflux disease): Code(s): K21.9 - Gastro-esophageal reflux disease without esophagitis Category: Medical Qualifiers: Esophagitis presence: esophagitis presence not specified Qualified Code(s): K21.9 - Gastro-esophageal reflux disease without esophagitis (2) Chronic idiopathic constipation: Code(s): K59.04 - Chronic idiopathic constipation Plan Patient will continue pantoprazole for now. Discussed with patient avoiding dietary triggers and late night snacking. Staying upright for minimum 3 hours after meals discussed with patient. Patient was encouraged to avoid carbs. Patient was encouraged to continue fiber. Increase fluid intake and activity to promote better bowel motility. Patient will follow-up in our office in 6 months. Patient was encouraged to call us if she will have any GI concerning symptoms. Patient is agreeable to current plan of care and verbalizes understanding of instructions. She was given the opportunity to ask questions and all questions answered. Thank you for allowing me to participate in her care Coding Level of Care Code Est Pt Level 4 (15992) Complex visit Add On G2211 Diagnoses Gastroesophageal reflux disease, unspecified whether esophagitis present K21.9 Esophagitis presence: esophagitis presence not specified Chronic idiopathic constipation K59.04 Time Spent (min) 35 Comment 25 minutes spent with patient and additional 10 minutes spent reviewing her records
[2025-08-26 11:18] VITALS: BP 140/64; PULSE 68; O2SAT 99; BMI 26.6
== END 2025-08-26 11:45 | disposition home or self-care (01) ==
LOC: HO.HGI 11:10
PROVIDERS: PCP Internal Medicine; Visit Provider Nurse Practitioner Family
DX: K21.9 Gastro-esophageal reflux disease without esophagitis (principal); K59.04 Chronic idiopathic constipation
CPT/HCPCS: 99214; G2211

== ENCOUNTER → 2025-08-26 11:09 | Outpatient (BNVA) | payer OTHER, SELFPAY | PROVIDERS: PCP Internal Medicine; Visit Provider Nurse Practitioner Family | DX: K21.9 Gastro-esophageal reflux disease without esophagitis (principal); K59.04 Chronic idiopathic constipation; Z79.899 Other long term (current) drug therapy | CPT/HCPCS: 99212 ==

== ENCOUNTER 2025-08-28 14:12 | Outpatient (AMB) | payer OTHER, SELFPAY ==
[2025-08-28 14:34] VITALS: BP 146/78; PULSE 62; O2SAT 99; BMI 27.6
--- NOTE | 2025-08-28 14:34 | MHC.PC.OV ---
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: No Accompanied by: Self / Same As Patient Allergies aspirin (Aspirin) Allergy (Severe, Verified 08/28/25 15:24) MOUTH SWELLING Penicillins (PENICILLINS) Allergy (Intermediate, Verified 08/28/25 15:24) ITCHING caffeine (Caffeine) Allergy (Mild, Verified 08/28/25 15:24) NERVOUSNESS lisinopril (Lisinopril) Allergy (Mild, Verified 08/28/25 15:24) CHANGES IN BLOOD PRESSURE ranitidine (RANITIDINE) Allergy (Mild, Verified 08/28/25 15:24) HEADACHE amlodipine (AMLODIPINE) Allergy (Unknown, Verified 08/28/25 15:24) UNKNOWN amoxicillin Allergy (Unknown, Verified 08/28/25 15:24) itching, severe with rash diclofenac Allergy (Unknown, Verified 08/28/25 15:24) Unknown escitalopram Allergy (Unknown, Verified 08/28/25 15:24) abdominal discomfort, drowsiness esomeprazole (Nexium) Allergy (Unknown, Verified 08/28/25 15:24) Unknown isosorbide (ISOSORBIDE) Allergy (Unknown, Verified 08/28/25 15:24) UNKNOWN lidocaine (Lidoderm) Allergy (Unknown, Verified 08/28/25 15:24) weakness mirtazapine Allergy (Unknown, Verified 08/28/25 15:24) Unknown nystatin Allergy (Unknown, Verified 08/28/25 15:24) rash sertraline (SERTRALINE) Allergy (Unknown, Verified 08/28/25 15:24) UNKNOWN dexlansoprazole (From DEXILANT) Adverse Reaction (Severe, Verified 08/28/25 15:24) AGITATION hydrochlorothiazide (Hydrochlorothiazide) Adverse Reaction (Intermediate, Verified 08/29/25 07:19) DROP IN BLOOD PRESSURE hydrocortisone (From Cortizone-10) Adverse Reaction (Mild, Verified 08/28/25 15:24) RAISES BLOOD SUGAR semaglutide (From Ozempic) Adverse Reaction (Mild, Verified 08/28/25 15:24) gerd topiramate (From TOPAMAX) Adverse Reaction (Unknown, Verified 08/28/25 15:24) AGITATION trajenta Allergy (Severe, Uncoded 08/28/25 15:24) numbness From PLAVIX Allergy (Unknown, Uncoded 08/28/25 15:24) PT UNSURE OF REACTION Medical tape Allergy (Unknown, Uncoded 08/28/25 15:24) Rash Medication List - Last Reconciled 08/28/25 by Boaz Astorga MD acetaminophen (Tylenol Extra Strength) 500 mg PO .TWICE A DAY PRN alprazolam 0.5 mg PO BID PRN ammonium lactate 12% topical blood sugar diagnostic (LocalCirclesTouch Ultra Test strips) USE DIRECTED TO TEST BLOOD SUGAR FOUR TIMES DAILY blood sugar diagnostic (OneTouch Ultra Test strips) As directed to test blood sugar three times daily. buspirone 7.5 mg PO DAILY carvedilol 6.25 mg PO BID 90 days cholecalciferol (vitamin D3) 50 mcg PO DAILY ciclopirox 0.77% appl topical BID clotrimazole-betamethasone 1-0.05 % 1 appl topical BID PRN compr.stocking,knee,long,large As directed [gloves As directed] [incontinent liners As directed] insulin lispro (Humalog KwikPen (U-100) Insulin) subcutaneously 2 times a day; Take 6 units before breakfast and 2 units before bedtime snack. lancets (LocalCirclesTouch Delica Plus Lancet) USE FOUR TIMES DAILY methylcellulose (laxative) (Citrucel) 500 mg PO DAILY multivit with min-folic acid 200 mcg (Adult Multivitamin Gummies) 1 tab PO DAILY pantoprazole 40 mg PO DAILY 90 days pen needle, diabetic bid NS propylene glycol 0.6% (Systane Balance) 1 drp ophthalmic (eye) BID PRN rosuvastatin 40 mg PO DAILY 90 days sennosides 17.2 mg (2 x 8.6 mg) PO DAILY spironolactone 25 mg PO BEDTIME Tobacco use date assessed: 08/28/25 Fall risk assessment: No Falls in past year Last assessed Fall Risk: 08/28/25 Dental Screening Dental Screen Date: 08/28/25 Did you have a dental visit in the last 12 months?: No Did you have a dental problem in the last 6 months where you did not have access to dental care?: No Was dental information given to patient?: No HPI facial swelling HPI Details Patient comes in today complaining of recurrent swelling over her face and especially around her eyes over the past few days She recalls being advised by her kidney doctor (Dr. Madrigal) last month that her kidneys were failing and that she needs to drink more water States that she has been doing just that but then started experiencing increased swelling of her face, especially around her eyes recently She recalls being on Furosemide a few years ago and had some leftover Rx at home but these are likely and she will need a new Rx if she will be taking them She denies any headaches or dizziness Denies any chest pains, no increased shortness of breath No nausea/vomiting, no abdominal pain No change in bowel habits noted States that she is now seeing a Dr. Dagoberto Kelly at the [facility] on [facility] in [place] for her psychiatric issues [facility] Medical History Hyperparathyroidism Left bundle branch block Type 2 diabetes mellitus with chronic kidney disease Chronic kidney disease, stage 4 (severe) Type 2 diabetes mellitus Obesity Skin abrasion HARRIET (renal artery stenosis) Nonischemic cardiomyopathy Urinary incontinence GERD (gastroesophageal reflux disease) COVID-19 Pneumonia due to COVID-19 virus Vertigo Obesity (BMI 30-39.9) Depression Anxiety Stasis edema of both lower extremities Cardiomyopathy Pure hypercholesterolemia Hyperkalemia Renal artery stenosis Benign essential hypertension Conjunctival hemorrhage of right eye Surgical History Hx of colonoscopy Hx of myomectomy History of cataract surgery History of lumpectomy of left breast History of cholecystectomy Family History Father CVD (cardiovascular disease) Myocardial infarction Mother Myocardial infarction CVD (cardiovascular disease) Brother Myocardial infarction Family/Other FH: prostate cancer Social History Household Members: None Housing: Apartment Do you presently have visiting nurse or other home services: No Alcohol intake: never Patient Tobacco Use Status: Former Tobacco user Tobacco use type: Cigarette e-Cigarette/Vaping Use: Never Used Second Hand Smoke Exposure: No Advance Directives Date on File: 08/06/21 service: No Current occupational status: disabled Cognitive needs: No Hearing needs: No Vision needs: Yes Questionnaire PHQ-9 Over the last 2 weeks, how often have you been bothered by any of the following problems? 1. Little interest or pleasure in doing things: not at all 2. Feeling down, depressed, or hopeless: several days 3. Trouble falling or staying asleep, or sleeping too much: several days 4. Feeling tired or having little energy: more than half the days 5. Poor appetite or overeating: more than half the days 6. Feeling bad about yourself - or that you are a failure or have let yourself or your family down: not at all 7. Trouble concentrating on things, such as reading the newspaper or watching television: not at all 8. Moving or speaking so slowly that other people could have noticed. Or the opposite - being so fidgety or restless that you have been moving around a lot more than usual: not at all 9. Thoughts that you would be better off or of hurting yourself in some way: not at all Total score: 6 Depression Screening Interpretation: Positive Depression Screening Follow-up: Existing condition and In treatment Depression Screening Done: Yes 42335 - PHQ-9 Billing: Yes Source: Developed by Drs. Kayden Gonzalez, Alka Silver, Harjit Rush and colleagues, with an educational vlad from [employer]. Thrive Questionnaire Date Thrive assessed: 08/28/25 I am a: Patient What is your living situation today?: I have a steady place to live Within the past 12 months, did the food you bought not last and you didn't have the money to get more?: Never true Within the past 12 months, did you worry whether your food would run out before you got money to buy more?: Never true Do you have trouble paying for medicines?: No Do you have trouble getting transportation to medical appointments?: Yes Do you have trouble paying your heating and electricity bill?: No Do you have trouble taking care of your child, family member or friend?: No Do you have trouble with day-to-day activities such as bathing, preparing meals, shopping, managing finances, etc.?: No Are you currently unemployed and looking for a job?: Yes Are you interested in more education?: No Please select the resources that you would like help with: None Currently or been in a relationship where the following occur: No concerns reported THRIVE Score: 1 AUDIT C Alcohol Use Questionnaire (AUDIT-C) 1. How often do you have a drink containing alcohol?: Never 3. How often do you have six or more drinks on one occasion?: Never Total Score: 0 Score Reviewed/Action Taken: Yes VIKRAM-7 AMB Questionnaire VIKRAM-7 Date VIKRAM - 7 assessed: 08/28/25 Feeling nervous, anxious, or on edge: 1 = Several days Not being able to stop or control worryin = Several days Worrying too much about different things: 1 = Several days Trouble relaxin = Several days Being so restless that it is hard to sit still: 1 = Several days Becoming easily annoyed or irritable: 1 = Several days Feeling afraid as if something awful might happen: 1 = Several days Total VIKRAM-7 score (0-4 normal; 5-9 mild; 10-14 moderate; 15-21 severe): 7 Source: Developed by Drs. Kayden Gonzalez, Alka Silver, Harjit Rush and colleagues, with an educational vlad from [employer]. Review of Systems Const Denies chills, Reports fatigue, Denies fever(s) and Denies headache(s) Eyes Details: on and off swelling of the face, especially around her eyes ENT Denies dysphagia, Denies dizziness, Denies otalgia, Denies headache(s), Denies neck pain, Denies odynophagia and Denies sore throat Card Denies chest pain, Denies palpitations and Denies dyspnea Resp Denies chest congestion, Denies cough and Denies dyspnea GI Denies abdominal pain, Denies constipation, Denies dysphagia, Denies heartburn, Denies diarrhea, Denies nausea, Denies odynophagia and Denies vomiting Denies difficulty voiding, Denies nocturia, Denies dysuria, Reports urinary incontinence and Denies urinary urgency Musc Denies back pain and Denies neck pain Skin/Breast Denies rash Neuro Denies dizziness and Denies headache(s) Psych Reports anxiety Endo Reports fatigue and Denies palpitations Physical exam (Primary Care) Vital Signs: Last Vital Signs Pulse 62 08/28/25 14:34 BP 146/78 H 08/28/25 14:34 Pulse Ox 99 08/28/25 14:34 Oxygen Delivery Method Room Air 08/28/25 14:34 BMI result Body Mass Index 27.6 Tobacco/Smoking Status: Tobacco use Status Tobacco use date assessed 08/28/25 08/28/25 14:35 Patient Tobacco Use Status Former Tobacco user 08/28/25 14:35 Tobacco use type Cigarette 08/28/25 14:35 e-Cigarette/Vaping Use Never Used 08/28/25 14:35 PHQ-9: PHQ-9 Score PHQ-9: Total score 6 08/28/25 15:34 Depression Screening Interpretation: Positive Depression Screening Follow-up: Existing condition and In treatment Thrive Assessment: Date of Thrive Assessment Date Thrive assessed 08/28/25 08/28/25 14:40 Currently or been in a relationship where the following occur: No concerns reported Const Other: (+) minimal periorbital edema noted bilaterally General: no acute distress and alert HENMT Throat: Yes posterior oropharynx normal and Yes tonsils normal (no TP congestion noted) Neck Neck: Yes supple and No lymphadenopathy Thyroid: Thyroid normal Resp Auscultation: clear to auscultation bilaterally, no rales and no wheezes Cardio Rate: regular rate Rhythm: regular rhythm Heart sounds: no murmurs GI Palpation (GI): Soft to palpation and nontender Auscultation: normal bowel sounds General: Yes no CVA tenderness Back/Spine/Pelvis Back: no CVA tenderness Thoracic/Lumbar Spine: No lumbar spinal tenderness Skin Rashes: no rashes Extrem General: No clubbing, No cyanosis and Yes edema (1+bipedal edema) Results Reviewed Results Reviewed: Laboratory Tests 05/08/25 06/13/25 07/31/25 12:42 08:48 13:47 WBC 5.9 Hgb 12.3 Hct 38.2 Plt Count 223 Sodium 136 Potassium 5.0 Creatinine 2.47 H 2.62 H 2.88 H Estimated GFR 19 18 16 Glucose (Clinic) Calcium 9.9 Phosphorus 3.6 25-OH Vitamin D Total 52.6 PTH Intact 183.8 H 08/04/25 13:12 WBC Hgb Hct Plt Count Sodium Potassium Creatinine Estimated GFR Glucose (Clinic) 221 H Calcium Phosphorus 25-OH Vitamin D Total PTH Intact Coding Level of Care Code Est Pt Level 4 (47072) Diagnoses Edema, unspecified type R60.9 Edema type: unspecified Benign essential hypertension I10 Cardiomyopathy, unspecified type I42.9 Cardiomyopathy type: unspecified Renal artery stenosis I70.1 Chronic kidney disease, stage 4 (severe) N18.4 Hyperparathyroidism E21.3 Type 2 diabetes mellitus with stage 4 chronic kidney disease, without long-term current use of insulin E11.22; N18.4 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 buttermaker insulin use: without long-term use Chronic kidney disease stage: stage 4 (severe) Pure hypercholesterolemia E78.00 Elevated TSH R79.89 Gastroesophageal reflux disease, unspecified whether esophagitis present K21.9 Esophagitis presence: esophagitis presence not specified Anxiety F41.9 Depression, unspecified depression type F32.9 Depression Type: unspecified Obesity (BMI 30-39.9) E66.9 Additional Codes PHQ-9 - 37733 - PHQ-9 Billing: Yes ([id number]) Assessment & Plan Assessment & Plan (1) Edema: Code(s): R60.9 - Edema, unspecified Category: Medical Qualifiers: Edema type: unspecified Qualified Code(s): R60.9 - Edema, unspecified Plan: Per patient, increased recently, especially on the face and around her eyes This is likely due to fluid retention arising from her recent increased oral fluid intake and in light of her declining renal function She reportedly had a reaction to HCTZ in the past, wherein she experienced a significant drop in her blood pressure while she was on the Rx Explained that this is likely due to overmedication rather than an actual adverse reaction or allergy Nonetheless, as she has taken Furosemide 20 mg in the past without any issues, will go ahead and have her start taking Furosemide 20 mg Q AM but only for increased edema/swelling Have emphasized to patient that she is not to take this on a daily basis at this time as doing so may not only potentially cause her blood pressure to drop too long again wherein she will become symptomatic, but may also accelerate her renal function decline Follow up with nephrology as scheduled (2) Benign essential hypertension: Code(s): I10 - Essential (primary) hypertension Category: Medical Plan: Reinforced low sodium diet - goal is systolic BP of at least 130 to 140 mm or less Continue Carvedilol 6.25 mg BID and Spironolactone 25 mg Q HS Her Losartan was discontinued previously and she has been advised NOT to start back on this due to her advanced CKD She will be started on low dose Furosemide 20 mg QD PRN today for her recent increased edema and she has been advised to monitor her blood pressure closely in the meantime Follow up with cardiology as scheduled (3) Cardiomyopathy: Code(s): I42.9 - Cardiomyopathy, unspecified Category: Medical Qualifiers: Cardiomyopathy type: unspecified Qualified Code(s): I42.9 - Cardiomyopathy, unspecified Plan: Continue Carvedilol 6.25 mg BID Patient had a stress test and nuclear MIBI done at [facility] a couple of years ago - both tests came back normal BNP also came back normal when previously checked Follow up with cardiology as scheduled (4) Renal artery stenosis: Code(s): I70.1 - Atherosclerosis of renal artery Category: Medical Plan: She has left HARRIET (seen on renal artery doppler) and will be considered for renal angioplasty if necessary, although a more recent renal US done in May 2024 revealed no HARRIET Her BP appears to have improved a lot with the addition of Spironolactone, but is slightly elevated again today Will continue to observe and monitor her blood pressure regularly Follow up with nephrology (Dr. Madrigal) as scheduled (5) Chronic kidney disease, stage 4 (severe): Code(s): N18.4 - Chronic kidney disease, stage 4 (severe) Category: Medical Plan: Patient's serum creatinine and GFR/renal function again have been mostly stable but appears to be gradually declining again on her more recent labs - will continue to monitor her GFR and serum creatinine closely Follow up with nephrology (Dr. Madrigal) as scheduled - nephrology has recommended adding an SGLT-2 inhibitor when appropriate; Metformin has since been discontinued Patient used to see [facility] but has now been switched over to [facility] for management of her diabetes (6) Hyperparathyroidism: Code(s): E21.3 - Hyperparathyroidism, unspecified Category: Medical Plan: Her intact PTH level was significantly elevated at 183.8 pg/ml on her recent labs done last month Follow up with nephrology as scheduled (7) Type 2 diabetes mellitus with chronic kidney disease: Code(s): E11.22 - Type 2 diabetes mellitus with diabetic chronic kidney disease Category: Medical Qualifiers: 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 long-term insulin use: without long-term use Chronic kidney disease stage: stage 4 (severe) Qualified Code(s): E11.22 - Type 2 diabetes mellitus with diabetic chronic kidney disease; N18.4 - Chronic kidney disease, stage 4 (severe) Plan: Her HgbA1c was at 9.0% on her labs done a few months ago in May 2025 (in-office HgbA1c was at 8.9% at the endocrinology office in early April 2025) - goal is at least <7.5% She has been advised that her numbers are still above goal Reinforced diabetic diet Continue Tradjenta 5 mg QD, Acarbose 25 mg QD and Lantus 6 units Q HS Her Metformin ER 500 mg QD has been discontinued due to her advanced CKD; Glimepiride 1 mg Q AM and Januvia were also previously stopped due to hypoglycemia She was also taken off Ozempic as she was reportedly losing too much weight while on the medication Nephrology recommended adding an SGLT-2 inhibitor and will consider starting patient on this at her next follow up visit if appropriate Follow up with [facility]ocr[facility] as scheduled (8) Pure hypercholesterolemia: Code(s): E78.00 - Pure hypercholesterolemia, unspecified Category: Medical Plan: Reinforced low cholesterol diet Continue Rosuvastatin 40 mg QD Patient is reminded to recheck her labs and fasting lipids as scheduled next month for follow up (9) Elevated TSH: Code(s): R79.89 - Other specified abnormal findings of blood chemistry Category: Medical Plan: Her TSH remained normal on her recent labs done a few months ago Her free T4 and T3 levels were normal and TPO Ab level was high when previously checked, suggesting possible Pb's Patient currently appears clinically euthyroid Will continue to monitor her TFTs regularly (10) GERD (gastroesophageal reflux disease): Code(s): K21.9 - Gastro-esophageal reflux disease without esophagitis Category: Medical Qualifiers: Esophagitis presence: esophagitis presence not specified Qualified Code(s): K21.9 - Gastro-esophageal reflux disease without esophagitis Plan: Dietary restrictions reinforced Continue Pantoprazole 20 mg QD - dose was lowered by GI recently Follow up with GI as scheduled (11) Anxiety: Code(s): F41.9 - Anxiety disorder, unspecified Category: Medical Plan: Continue Buspirone 7.5 mg QD and Alprazolam 0.5 mg BID PRN Follow up with psychiatry as scheduled (12) Depression: Code(s): F32.9 - Major depressive disorder, single episode, unspecified Category: Medical Qualifiers: Depression Type: unspecified Qualified Code(s): F32.9 - Major depressive disorder, single episode, unspecified Plan: Follow up with psychiatry as scheduled - patient used to go to [facility] but is now seeing a Dr. Dagoberto Kelly at the [facility] on [facility] in [place] for her psychiatric issues (13) Obesity (BMI 30-39.9): Code(s): E66.9 - Obesity, unspecified Category: Medical Plan: Reinforced diet; exercise and weight loss are unrealistic given patient's multiple comorbidities and limited activity tolerance as well as her gait instability Plan Follow up as scheduled next month Medications: New furosemide (Lasix) Take once a day in the morning ONLY NEEDED if (+) facial swelling or edema 20 mg PO QAM PRN 30 tabs 0RF facial edema/swelling
--- OUTSIDE RECORDS SUMMARY | 2025-08-28 15:58 | XMS_ITS | Clinical Summary ---
Author Organization [facility] Address [address] [place] [address] Phone Care Team Providers Care [employer] Officer Name Role Phone Boaz Astorga MD Primary Care Provider [phone] Allergies Active Allergy Reactions Criticality Noted Date [...] age to complete this topic Insurance [place] [facility] ([id number]) [place] [facility] ([id number]) Care Teams [employer] Officer Relationship Specialty Start Date End Date Boaz Astorga MD [address] [place] [address] PCP - General 11/01/20
== END 2025-08-28 15:39 | disposition home or self-care (01) ==
LOC: HO.HMCH 14:13
PROVIDERS: PCP Internal Medicine; Visit Provider Internal Medicine
DX: R60.9 Edema, unspecified (principal); I12.9 Hypertensive chronic kidney disease with stage 1 through stage 4 chronic kidney disease, or unspecified chronic kidney disease; I42.9 Cardiomyopathy, unspecified; I70.1 Atherosclerosis of renal artery; N18.4 Chronic kidney disease, stage 4 (severe); E21.3 Hyperparathyroidism, unspecified; E11.22 Type 2 diabetes mellitus with diabetic chronic kidney disease; E78.00 Pure hypercholesterolemia, unspecified; R79.89 Other specified abnormal findings of blood chemistry; K21.9 Gastro-esophageal reflux disease without esophagitis; F41.9 Anxiety disorder, unspecified; F32.9 Major depressive disorder, single episode, unspecified; E66.9 Obesity, unspecified

== ENCOUNTER → 2025-08-28 14:12 | Outpatient (BNVA) | payer OTHER, SELFPAY | PROVIDERS: PCP Internal Medicine; Visit Provider Internal Medicine | DX: E11.22 Type 2 diabetes mellitus with diabetic chronic kidney disease (principal); I12.9 Hypertensive chronic kidney disease with stage 1 through stage 4 chronic kidney disease, or unspecified chronic kidney disease; R60.9 Edema, unspecified; I42.9 Cardiomyopathy, unspecified; I70.1 Atherosclerosis of renal artery; N18.4 Chronic kidney disease, stage 4 (severe); E21.3 Hyperparathyroidism, unspecified; E78.00 Pure hypercholesterolemia, unspecified; R79.89 Other specified abnormal findings of blood chemistry; K21.9 Gastro-esophageal reflux disease without esophagitis; F41.9 Anxiety disorder, unspecified; F32.9 Major depressive disorder, single episode, unspecified | CPT/HCPCS: 96127; 99212 ==

== ENCOUNTER 2025-09-25 12:53 | Outpatient (AMB) | payer OTHER, SELFPAY ==
[2025-09-25 12:58] VITALS: BP 152/86; PULSE 63; O2SAT 98; BMI 28.1
--- NOTE | 2025-09-25 12:58 | A.OFFVIS_ITS ---
Vital Signs 09/25/25 12:58 Height 5 ft Weight 143 lb 11.862 oz BMI 28.1 BP 152/86 H Blood Pressure Location Rt brachial Position Sitting Pulse 63 Pulse Source Pulse Oximeter Pulse Oximetry (%) 98 Oxygen Delivery Method Room Air Intake Visit Reasons: T2DM Intake Note: Patient present today to follow up on Type 2 Diabetes Mellitus. Last Diabetic Eye exam: 04/03/2025 [facility] Last Podiatry Visit: Does not see a Tape Recorder Mechanic Random Glucose: 152 mg/dL Hgb A1C: 8.3% Programming Specialist Required: No Accompanied by: TROLLEY CAR MECHANIC Allergies aspirin (Aspirin) Allergy (Severe, Verified 09/25/25 13:06) MOUTH SWELLING Penicillins (PENICILLINS) Allergy (Intermediate, Verified 09/25/25 13:06) ITCHING caffeine (Caffeine) Allergy (Mild, Verified 09/25/25 13:06) NERVOUSNESS lisinopril (Lisinopril) Allergy (Mild, Verified 09/25/25 13:06) CHANGES IN BLOOD PRESSURE ranitidine (RANITIDINE) Allergy (Mild, Verified 09/25/25 13:06) HEADACHE amlodipine (AMLODIPINE) Allergy (Unknown, Verified 09/25/25 13:06) UNKNOWN amoxicillin Allergy (Unknown, Verified 09/25/25 13:06) itching, severe with rash diclofenac Allergy (Unknown, Verified 09/25/25 13:06) Unknown escitalopram Allergy (Unknown, Verified 09/25/25 13:06) abdominal discomfort, drowsiness esomeprazole (Nexium) Allergy (Unknown, Verified 09/25/25 13:06) Unknown isosorbide (ISOSORBIDE) Allergy (Unknown, Verified 09/25/25 13:06) UNKNOWN lidocaine (Lidoderm) Allergy (Unknown, Verified 09/25/25 13:06) weakness mirtazapine Allergy (Unknown, Verified 09/25/25 13:06) Unknown nystatin Allergy (Unknown, Verified 09/25/25 13:06) rash sertraline (SERTRALINE) Allergy (Unknown, Verified 09/25/25 13:06) UNKNOWN dexlansoprazole (From DEXILANT) Adverse Reaction (Severe, Verified 09/25/25 13:06) AGITATION hydrochlorothiazide (Hydrochlorothiazide) Adverse Reaction (Intermediate, Verified 09/25/25 13:06) DROP IN BLOOD PRESSURE hydrocortisone (From Cortizone-10) Adverse Reaction (Mild, Verified 09/25/25 13:06) RAISES BLOOD SUGAR semaglutide (From Ozempic) Adverse Reaction (Mild, Verified 09/25/25 13:06) gerd topiramate (From TOPAMAX) Adverse Reaction (Unknown, Verified 09/25/25 13:06) AGITATION trajenta Allergy (Severe, Uncoded 09/25/25 13:06) numbness From PLAVIX Allergy (Unknown, Uncoded 09/25/25 13:06) PT UNSURE OF REACTION Medical tape Allergy (Unknown, Uncoded 09/25/25 13:06) Rash HPI Comments Details: This is an 80-year-old female presenting for management of type 2 diabetes. Since our last visit she met with a certified coding educator. Current regimen: Lispro 6 units before breakfast and 2-3 units before snack at night. She confirmed she is taking this. Hemoglobin A1c 8.3% down from 9% 06/13/25. I reviewed her glucometer data She is in range 55% Average glucose 189 Lowest 116, highest 336 She experiences hyperglycemia after dinner and then has snack before bed. Check glucose before breakfast, before dinner, and before snack at night. Past medications: Toujeo discontinued because she was noncompliant. Tradjenta made her feel sick Metformin and Januvia caused weight gain. Trulicity was not effective and she had GI symptoms and weakness Ozempic was stopped secondary to weight loss and GERD Complications: She has nephropathy followed by Dr. Madrigal. She has hyperlipidemia, on statin. She is seen by Cardiology for cardiomyopathy with recent echo showing ejection fraction of 40-45%. ROS: Constitutional: No unexplained weight loss, fever, chills Eyes: No vision changes, blurry vision, double vision, eye pain Neurologic: No dizziness, syncope, headaches, weakness Hematologic/Lymphatics: No bleeding or bruising. Endocrine: No polyuria or polydipsia. Physical exam: Constitutional: Alert, in no distress. Neck: Supple, Full range of motion. No lymphadenopathy. No palpable thyroid mass es. Respiratory: Clear to auscultation. Cardiovascular: S1 S2 regular. No murmurs. Neurologic: No focal neurological deficits. Moves all extremities spontaneously. [facility] Medical History Hyperparathyroidism Left bundle branch block Type 2 diabetes mellitus with chronic kidney disease Chronic kidney disease, stage 4 (severe) Type 2 diabetes mellitus Obesity Skin abrasion HARRIET (renal artery stenosis) Nonischemic cardiomyopathy Urinary incontinence GERD (gastroesophageal reflux disease) COVID-19 Pneumonia due to COVID-19 virus Vertigo Obesity (BMI 30-39.9) Depression Anxiety Stasis edema of both lower extremities Cardiomyopathy Pure hypercholesterolemia Hyperkalemia Renal artery stenosis Benign essential hypertension Conjunctival hemorrhage of right eye Surgical History Hx of colonoscopy Hx of myomectomy History of cataract surgery History of lumpectomy of left breast History of cholecystectomy Family History Father CVD (cardiovascular disease) Myocardial infarction Mother Myocardial infarction CVD (cardiovascular disease) Brother Myocardial infarction Family/Other FH: prostate cancer Social History Household Members: None Housing: Apartment Do you presently have visiting nurse or other home services: No Alcohol intake: never Patient Tobacco Use Status: Former Tobacco user Tobacco use type: Cigarette e-Cigarette/Vaping Use: Never Used Second Hand Smoke Exposure: No Advance Directives Date on File: 08/06/21 service: No Current occupational status: disabled Cognitive needs: No Hearing needs: No Vision needs: Yes Physical Exam Vital Signs: Last Vital Signs Pulse 63 09/25/25 12:58 BP 152/86 H 09/25/25 12:58 Pulse Ox 98 09/25/25 12:58 Oxygen Delivery Method Room Air 09/25/25 12:58 BMI result Body Mass Index 28.1 Results AMB Hemoglobin A1c AMB Hemoglobin A1c 8.3 % Last Edit by SCOUT Perla on 09/25/25 13:18 Results Reviewed Results Reviewed: Laboratory Last Values Glucose (Clinic) 152 mg/dL (60-115) H 09/25/25 13:08 Laboratory Tests 06/13/25 06/13/25 07/31/25 08:47 08:48 13:47 Creatinine 2.62 H 2.88 H Estimated GFR 18 16 Hemoglobin A1c % 9.0 H AST 33 H ALT 23 Triglycerides 89 Cholesterol 142 LDL Cholesterol, Calc 75 HDL Cholesterol 50 Microalb/Creat Ratio 45.6 H Assessment & Plan Assessment & Plan (1) Type 2 diabetes mellitus: Code(s): E11.9 - Type 2 diabetes mellitus without complications Category: Medical Qualifiers: 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 penitentiary insulin use: without oil heaterman use 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 complication status: with kidney complications 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 complication detail: with chronic kidney disease Chronic kidney disease stage: stage 4 (severe) Qualified Code(s): E11.22 - Type 2 diabetes mellitus with diabetic chronic kidney disease; N18.4 - Chronic kidney disease, stage 4 (severe) (2) Benign essential hypertension: Code(s): I10 - Essential (primary) hypertension Category: Medical (3) Pure hypercholesterolemia: Code(s): E78.00 - Pure hypercholesterolemia, unspecified Category: Medical Plan In summary this is an 80-year-old female with uncontrolled type 2 diabetes, however glycemic control has improved. Continue lispro 6 units before breakfast. Administer 4 units before dinner. If blood sugars after dinner are still greater than 180 when she checks before snack, increase to 6 units before dinner. If blood sugar is less than 120 before dinner do not take lispro. She has written instructions to treat hypoglycemia. She has glucose tablets. Her blood pressure is elevated today, but patient says she did not take her m edications and was rushing to get to the appointment. Recheck at next visit. Continue statin for hyperlipidemia. Follow up in 1 month. Orders: Orders AMB Hemoglobin A1c Today E11.22 - Type 2 diabetes mellitus with diabetic chronic kidney disease, N18.4 - Chronic kidney disease, stage 4 (severe), Z13.9 - Encounter for screening, unspecified Medications: New blood-glucose meter (OneTouch Ultra2 Meter) As directed 1 ea 0RF insulin lispro (Humalog KwikPen (U-100) Insulin) subcutaneously 2 times a day; Take 6 units before breakfast and 4 units before dinner. 15 mL 5RF Refilled lancets (OneTouch Delica Plus Lancet) USE FOUR TIMES DAILY 100 ea 11RF E11.9 - Type 2 diabetes mellitus without complications blood sugar diagnostic (OneTouch Ultra Test strips) As directed to test blood sugar three times daily. 100 ea 11RF Discontinued blood sugar diagnostic (OneTouch Ultra Test strips) Discontinued Reason: Doctor's Order USE DIRECTED TO TEST BLOOD SUGAR FOUR TIMES DAILY 100 strips 12RF E11.9 - Type 2 diabetes mellitus without complications Patient Instructions: Continue Lispro 6 units before breakfast Take Lispro 4 units before dinner. If your blood sugar after dinner is over 180, increase Lispro to 6 units before dinner. If your blood sugar is under 120 before dinner, do not take Lispro. If you experience low blood sugar, treat this by eating a chewable fruit candy like skittles or jelly beans (about 8 pieces), 4 ounces (1/2 cup) of fruit juice (not diet), 1 tablespoon of honey or 4 glucose tablets. If your blood sugar is under 50, take double the amount of one of the above. Recheck your blood sugar in 15 minutes. Coding Level of Care Code Est Pt Level 4 (14272) Complex visit Add On G2211 Diagnoses Type 2 diabetes mellitus with stage 4 chronic kidney disease, without long-term current use of insulin E11.22; N18.4 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 penitentiary insulin use: without oil heaterman use 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 complication status: with kidney complications 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 complication detail: with chronic kidney disease Chronic kidney disease stage: stage 4 (severe) Benign essential hypertension I10 Pure hypercholesterolemia E78.00
[2025-09-25 13:12] LABS: Glucose, Whole Blood 152 mg/dL (60-115)
--- OUTSIDE RECORDS SUMMARY | 2025-09-25 16:45 | XMS_ITS | Clinical Summary ---
Author Organization [facility] Address [address] [place] [address] Phone Care Team Providers Care Fire Suppression Captain Name Role Phone Boaz Astorga MD Primary Care Provider [phone] Allergies Active Allergy Reactions Criticality Noted Date [...] age to complete this topic Insurance [employer] [facility] ([id number]) [employer] [facility]/[employer] ([id number]) Care Teams Fire Suppression Captain Relationship Specialty Start Date End Date Boaz Astorga MD [address] [place] [address] PCP - General 11/01/20
== END 2025-09-25 13:43 | disposition home or self-care (01) ==
LOC: HO.ENCR 12:54
PROVIDERS: PCP Internal Medicine; Visit Provider Physician Assistant Medical
DX: E11.22 Type 2 diabetes mellitus with diabetic chronic kidney disease (principal); N18.4 Chronic kidney disease, stage 4 (severe); I12.9 Hypertensive chronic kidney disease with stage 1 through stage 4 chronic kidney disease, or unspecified chronic kidney disease; E78.00 Pure hypercholesterolemia, unspecified; Z13.9 Encounter for screening, unspecified

== ENCOUNTER → 2025-09-25 12:53 | Outpatient (BNVA) | payer OTHER, SELFPAY | PROVIDERS: PCP Internal Medicine; Visit Provider Physician Assistant Medical | DX: E11.22 Type 2 diabetes mellitus with diabetic chronic kidney disease (principal); I12.9 Hypertensive chronic kidney disease with stage 1 through stage 4 chronic kidney disease, or unspecified chronic kidney disease; N18.4 Chronic kidney disease, stage 4 (severe); E78.00 Pure hypercholesterolemia, unspecified | CPT/HCPCS: 82947; 83036; 99212 ==

== ENCOUNTER 2025-09-30 10:35 | Emergency (ER) | payer OTHER, SELFPAY ==
--- OUTSIDE RECORDS SUMMARY | 2024-05-27 08:30 | XMS_ITS ---
[facility] Address [address] [place] [address] Care Team Providers Care Microphone Boom Operator Name Role Phone Rizwan SORENSON, Boaz Primary Care Provider Yarely Medina Unavailable [phone] Medications Medication SIG (Take, Route, Frequency, Duration) [...] a day; Duration: 7 days Not-Taking Nystatin 963142 UNIT/GM 1 application Externally Twice a day [...] Active Encounters Encounter Location Date Provider Diagnosis [facility] [place] [address] [place] [address] 05/27/2024 Yarely Gibbs Plan Of Treatment Next Appt Details Provider Name:Yarely puckett, 11/18/2025 01:30:00 PM, [address] [place] [address], [phone], Progress Notes * Alicia DUONGDOB:1945 (80 yo F)Acc No.[id number]:05/27/2024 Progress Note Patient: Alicia ROQUE Provider: Jarad Gibbs DPM :1945 A ge:78 Y S ex:Female Date:05/27/2024 Address:[address] [place], [place] [id number] Pcp:Boaz Astorga MD Subjective: * Chief Complaints: * * HPI: A t Risk footcare: Pt States Last PCP Visit: D ate 0 01/11/2024 * Medical History: * Medications: [...] needed Twice a day , Not-Taking/PRN Nystatin 198897 UNIT/GM Cream 1 application Externally Twice a [...] Generated for Mary Ann baca/Suzy/eTransmitting on: 1 12/01/2024 06:08 PM EST History and Physical Notes * HPI (History of Present Illness) Category Sub-Category Detail Notes Category Not es At Risk footcare Pt States Last PCP Visit: Date: 4
--- OUTSIDE RECORDS SUMMARY | 2024-12-02 09:00 | XMS_ITS ---
Author Organization [facility] Address [address] [facility] [place] [address] Care Team Providers Care Small Engine Specialist Name Role Phone Rizwan SORENSON, Boaz Primary Care Provider Yarely Medina Unavailable [phone] Medications Medication SIG (Take, Route, Frequency, Duration) [...] day; Duration: 30 days 06/06/2023 Active Nystatin 648721 UNIT/GM 1 application Externally Twice a day [...] Active Encounters Encounter Location Date Provider Diagnosis [facility] [address] [address] 12/02/2024 Yarely Gibbs Plan Of Treatment Next Appt Details Provider Name:Yarely puckett, 11/18/2025 01:30:00 PM, [address] [place] [address], [phone], Progress Notes * Alicia DUONGDOB:1945 (80 yo F)Acc No.[id number]:12/02/2024 Progress Note Patient: Alicia ROQUE Provider: Jarad Gibbs DPM :1945 A ge:79 Y S ex:Female Date:12/02/2024 Address:[address] [place], [place] [id number] Pcp:Boaz Astorga MD Subjective: * Chief Complaints: [...] needed Twice a day , Not-Taking/PRN Nystatin 485344 UNIT/GM Cream 1 application Externally Twice a [...] Generated for Mary Ann Carbone on: 1 12/01/2024 06:07 PM EST History and Physical Notes * HPI (History of Present Illness) Category Sub-Category Detail Notes Category Not es At Risk footcare Pt States Last PCP Visit: Date: 4
--- OUTSIDE RECORDS SUMMARY | 2025-02-18 06:30 | XMS_ITS ---
Author Organization [facility] Address [address] [place] [address] Care Team Providers Care Scratch Brusher Name Role Phone Rizwan SORENSON, Boaz Primary Care Provider UnaYarely White Unavailable [phone] Encounters Encounter Location Date Provider Diagnosis [address] [address] 02/18/2025 Yarely Gibbs Plan Of Treatment Next Appt Details Provider Name:Yarely puckett, 11/18/2025 01:30:00 PM, [address] [place], [address], Progress Notes * Alicia DUONGDOB:1945 (80 yo F)Acc No.[id number]:02/18/2025 Progress Note Patient: Alicia ROQUE Provider: Jarad Gibbs DPM :1945 A ge:79 Y S ex:Female Date:02/18/2025 Address:[address] [facility] [address], [place], [place] Pcp:Boaz Astorga MD Subjective: * Chief Complaints: * * Medical History: Objective: * Vitals: Assessment: Plan: * Treatment: * Images: * The named appointment provid er may or may not be the originator of this progress note, and it is not deemed complete until electronically signed by the appointment provider. Sign off status: Pending * Provider: Jarad Gibbs DPM Date: 0 02/18/2025 Generated for Mary Ann baca/Suzy/Ventura on: 1 12/01/2024 06:08 PM EST
--- OUTSIDE RECORDS SUMMARY | 2025-07-07 10:00 | XMS_ITS ---
Author Organization [facility] Address [address] [place] [address] Care Team Providers Care Videotape Operator Name Role Phone Rizwan SORENSON, Boaz Primary Care Provider UnaYarely White Unavailable [phone] Encounters Encounter Location Date Provider Diagnosis [address] [address] 07/07/2025 Yarely Gibbs Plan Of Treatment Next Appt Details Provider Name:Yarely puckett, 11/18/2025 01:30:00 PM, [address] [place], [address], Progress Notes * Alicia DUONGDOB:1945 (80 yo F)Acc No.[id number]:07/07/2025 Progress Note Patient: Alicia ROQUE Provider: Jarad Gibbs DPM :1945 A ge:79 Y S ex:Female Date:07/07/2025 Address:[address] [facility] [address], [place], [place] Pcp:Boaz Astorga MD Subjective: * Chief Complaints: [...] for Mary Ann baca/Suzy/Ventura on: 1 12/01/2024 06:07 PM EST
[2025-09-30 10:49] VITALS: BP 178/79; PULSE 73; RESP 18; TEMP 37.1; O2SAT 98; BMI 29.9
--- NOTE | 2025-09-30 10:49 | ED.SKABFB ---
HPI - Skin/Abscess/Foreign Bdy General Chief complaint: Extremity Injury, Lower Stated complaint: l leg infection Time Seen by Provider: 09/30/25 11:05 Source: patient and RN notes reviewed Mode of arrival: ambulatory Limitations: no limitations History of Present Illness ED Provider: Christy Miller PA-C HPI narrative: This is a 19-afau-jgo-female, with a hx of LBBB, DM, CKD, cardiomyopathy, GERD, depression, anxiety, cardiomyopathy, HTN, who presents to the ED with concerns of left thomas redness. Reports that she was walking quickly past a sofa and scraped her left lower extremity. She has been applying topical medication for her symptoms which has provided her with moderate relief. No fevers, chills. Reports she chronically has lower extremity swelling, reports no increased swelling. No other complaints or concerns at this time. MD complaint: discoloration Pain Consistency: constant Relieving factors: none Exacerbating factors: none Context: none Associated symptoms: denies other symptoms Treatments prior to arrival: none Related Data Home Medications ?Medication ?Instructions ?Recorded ?Confirmed acetaminophen 500 mg tablet 500 mg PO .TWICE A DAY PRN Pain 08/16/20 08/28/25 (Tylenol Extra Strength) alprazolam 0.5 mg tablet 0.5 mg PO BID PRN Anxiety 08/16/20 08/28/25 buspirone 7.5 mg tablet 7.5 mg PO DAILY 08/16/20 08/28/25 propylene glycol 0.6 % eye drops 1 drp ophthalmic (eye) BID PRN Dry 08/06/21 08/28/25 (Systane Balance) Eye(S) ciclopirox 0.77 % topical cream appl topical BID 06/02/25 08/28/25 ammonium lactate 12 % lotion topical 08/26/25 08/28/25 Previous Rx's ?Medication ?Instructions ?Recorded multivitamin with minerals-folic 1 tab PO DAILY #90 tabs 06/12/23 acid 200 mcg chewable tablet (Adult Multivitamin Gummies) compr.stocking,knee,long,large #2 ea 09/27/23 methylcellulose (laxative) 500 mg 500 mg PO DAILY #30 tabs 07/08/24 tablet (Citrucel) sennosides 8.6 mg tablet 17.2 mg (2 x 8.6 mg) PO DAILY 10/13/24 constipation #180 tabs pantoprazole 40 mg tablet,delayed 40 mg PO DAILY 90 days #90 tabs 04/08/25 release gloves #1 ea 04/10/25 incontinent liners #1 ea 04/10/25 cholecalciferol (vitamin D3) 50 50 mcg PO DAILY #90 caps 04/13/25 mcg (2,000 unit) capsule pen needle, diabetic 32 gauge x #100 ea 06/26/25 rosuvastatin 40 mg tablet 40 mg PO DAILY 90 days #90 tabs 07/16/25 carvedilol 6.25 mg tablet 6.25 mg PO BID 90 days #180 tabs 08/06/25 spironolactone 25 mg tablet 25 mg PO BEDTIME #90 tabs 08/06/25 clotrimazole-betamethasone 1 1 appl topical BID PRN rash #30 08/07/25 %-0.05 % topical cream grams furosemide 20 mg tablet (Lasix) 20 mg PO QAM PRN facial 08/28/25 edema/swelling #30 tabs blood sugar diagnostic (OneTouch #100 ea 09/25/25 Ultra Test strips) blood-glucose meter (OneTouch #1 ea 09/25/25 Ultra2 Meter) insulin lispro 100 unit/mL See Rx Instructions subcut BID #15 09/25/25 subcutaneous pen (Humalog KwikPen mL (U-100) Insulin) lancets 33 gauge (OneTouch Delica #100 ea 09/25/25 Plus Lancet) cephalexin 500 mg capsule 500 mg PO QID 7 days #28 caps 09/30/25 doxycycline hyclate 100 mg capsule 100 mg PO BID 7 days #14 caps 09/30/25 Allergies Allergy/AdvReac Type Severity Reaction Status Date / Time aspirin (Aspirin) Allergy Severe MOUTH Verified 09/30/25 10:53 SWELLING Penicillins (PENICILLINS) Allergy Intermediate ITCHING Verified 09/30/25 10:53 caffeine (Caffeine) Allergy Mild NERVOUSNESS Verified 09/30/25 10:53 lisinopril (Lisinopril) Allergy Mild CHANGES IN Verified 09/30/25 10:53 BLOOD PRESSURE ranitidine (RANITIDINE) Allergy Mild HEADACHE Verified 09/30/25 10:53 amlodipine (AMLODIPINE) Allergy Unknown UNKNOWN Verified 09/30/25 10:53 amoxicillin Allergy Unknown itching, Verified 09/30/25 10:53 severe with rash diclofenac Allergy Unknown Unknown Verified 09/30/25 10:53 escitalopram Allergy Unknown abdominal Verified 09/30/25 10:53 discomfort, drowsiness esomeprazole (Nexium) Allergy Unknown Unknown Verified 09/30/25 10:53 isosorbide (ISOSORBIDE) Allergy Unknown UNKNOWN Verified 09/30/25 10:53 lidocaine (Lidoderm) Allergy Unknown weakness Verified 09/30/25 10:53 mirtazapine Allergy Unknown Unknown Verified 09/30/25 10:53 nystatin Allergy Unknown rash Verified 09/30/25 10:53 sertraline (SERTRALINE) Allergy Unknown UNKNOWN Verified 09/30/25 10:53 dexlansoprazole (From AdvReac Severe AGITATION Verified 09/30/25 10:53 DEXILANT) hydrochlorothiazide AdvReac Intermediate DROP IN Verified 09/30/25 10:53 (Hydrochlorothiazide) BLOOD PRESSURE hydrocortisone (From AdvReac Mild RAISES Verified 09/30/25 10:53 Cortizone-10) BLOOD SUGAR semaglutide (From Ozempic) AdvReac Mild gerd Verified 09/30/25 10:53 topiramate (From TOPAMAX) AdvReac Unknown AGITATION Verified 09/30/25 10:53 trajenta Allergy Severe numbness Uncoded 09/25/25 13:06 From PLAVIX Allergy Unknown PT UNSURE Uncoded 09/25/25 13:06 OF REACTION Medical tape Allergy Unknown Rash Uncoded 09/25/25 13:06 Review of Systems Review of Systems: Constitutional : No Fever, No Chills ENT/Mouth : No sore throat, No Rhinorrhea Eyes: No Eye Pain, No Swelling, No Redness Cardiovascular : No Chest Pain, No SOB Respiratory : No Cough, No Sputum Gastrointestinal : No Nausea, No Vomiting, No Diarrhea, No abdominal Pain Genitourinary : No Dysuria, No Hematuria Musculoskeletal : No joint pain, No Myalgias, No Joint Swelling Skin :+ Skin Lesions Neuro : No Weakness, No Numbness, No Headache All other systems reviewed and are negative Yes all other systems are reviewed and are negative Constitutional: Constitutional: Reports as per [facility] Past Medical History Medical History Hyperparathyroidism Left bundle branch block Type 2 diabetes mellitus with chronic kidney disease Chronic kidney disease, stage 4 (severe) Type 2 diabetes mellitus Obesity Skin abrasion HARRIET (renal artery stenosis) Nonischemic cardiomyopathy Urinary incontinence GERD (gastroesophageal reflux disease) COVID-19 Pneumonia due to COVID-19 virus Vertigo Obesity (BMI 30-39.9) Depression Anxiety Stasis edema of both lower extremities Cardiomyopathy Pure hypercholesterolemia Hyperkalemia Renal artery stenosis Benign essential hypertension Conjunctival hemorrhage of right eye Surgical History Hx of colonoscopy Hx of myomectomy History of cataract surgery History of lumpectomy of left breast History of cholecystectomy Family History Family History Father CVD (cardiovascular disease) Myocardial infarction Mother Myocardial infarction CVD (cardiovascular disease) Brother Myocardial infarction Family/Other FH: prostate cancer Social History Social History Household Members: None Housing: Apartment Do you presently have visiting nurse or other home services: No Alcohol intake: never Patient Tobacco Use Status: Former Tobacco user Tobacco use type: Cigarette e-Cigarette/Vaping Use: Never Used Second Hand Smoke Exposure: No Advance Directives Date on File: 08/06/21 service: No Current occupational status: disabled Cognitive needs: No Hearing needs: No Vision needs: Yes Physical Exam Exam: Exam: General: Awake, alert, and oriented X3. No acute distress. HEENT: Normal inspection CVS: Normal heart rate and rhythm. Pulses normal. Respiratory: No respiratory distress Skin: Normal skin color. Normal skin turgor. Extremities: See photo below Neuro: Oriented X 3. No motor deficit. No sensory deficit. Left anterior thomas with area of erythema, and warmth. Mildly tender. No bony tenderness. No pitting edema. Vital Signs: Vital Signs: Last Vital Signs Temp 98.7 F 09/30/25 11:27 Pulse 73 09/30/25 11:27 Resp 18 09/30/25 11:27 BP 178/79 H 09/30/25 11:27 Pulse Ox 98 09/30/25 11:27 O2 Del Method Room Air 09/30/25 11:27 BMI result Body Mass Index 29.9 Medical Decision Making Medical Decision Making MDM Narrative: This is a 54-zxqj-war-female, with a hx of LBBB, DM, CKD, cardiomyopathy, GERD, depression, anxiety, cardiomyopathy, HTN, who presents to the ED with concerns of left thomas redness. Reports that she was walking quickly past a sofa and scraped her left lower extremity last week. Reporting increased redness to her left lower extremity. No fevers or chills. No calf pain, no pitting edema. Differential diagnoses include cellulitis, contact dermatitis, ecchymosis, contusion. will treat with antibiotics. Given strict return precautions. Area of redness was outlined. Patient understands and agrees with plan. Patient stable for discharge. Differential Diagnosis Differential Diagnoses: The differential diagnosis associated with the presentation includes See above Discharge Plan Discharge Clinical Impression: Cellulitis Patient Disposition: Home, Self-Care Instructions: Cellulitis (ED) Additional Instructions: You were seen in the ER due to a skin infection. Please take both courses of antibiotics as directed. We outlined the area of redness on your leg, if the redness spreads beyond this, please return. Please watch for any new or worsening symptoms occur including but not limited to increased redness, swelling, fevers, chills, please seek emergent care. Prescriptions: New doxycycline hyclate 100 mg capsule 100 mg PO BID 7 Days Qty: 14 0RF cephalexin 500 mg capsule 500 mg PO QID 7 Days Qty: 28 0RF No Action Adult Multivitamin Gummies 200 mcg tablet,chewable 1 tab PO DAILY Qty: 90 1RF (DME) gloves medium See Rx Instructions .Route .MEDSUPPLY Qty: 1 3RF Rx Instructions: As directed (DME) incontinent liners See Rx Instructions .Route .MEDSUPPLY Qty: 1 0RF Rx Instructions: As directed cholecalciferol (vitamin D3) 50 mcg (2,000 unit) capsule 50 mcg PO DAILY Qty: 90 3RF rosuvastatin 40 mg tablet 40 mg PO DAILY 90 Days Qty: 90 1RF carvedilol 6.25 mg tablet 6.25 mg PO BID 90 Days Qty: 180 1RF spironolactone 25 mg tablet 25 mg PO BEDTIME Qty: 90 1RF clotrimazole-betamethasone 1-0.05 % cream 1 appl topical BID PRN (Reason: rash) Qty: 30 2RF Systane Balance 0.6 % Drops 1 drp OPHTHALMIC (EYE) BID PRN (Reason: Dry Eye(S)) buspirone 7.5 mg tablet 7.5 mg PO DAILY alprazolam 0.5 mg tablet 0.5 mg PO BID PRN (Reason: Anxiety) acetaminophen [Tylenol Extra Strength] 500 mg tablet 500 mg PO .TWICE A DAY PRN (Reason: Pain) (DME) compr.stocking,knee,long,large Misc See Rx Instructions .Route Qty: 2 0RF Rx Instructions: As directed Citrucel 500 mg tablet 500 mg PO DAILY Qty: 30 2RF Rx Instructions: take it with full glass of water sennosides 8.6 mg tablet 17.2 mg PO DAILY Qty: 180 4RF pantoprazole 40 mg tablet,delayed release (DR/EC) 40 mg PO DAILY 90 Days Qty: 90 3RF ammonium lactate 12 % lotion topical (DME) OneTouch Ultra Test Strip See Rx Instructions .Route Qty: 100 11RF Rx Instructions: As directed to test blood sugar three times daily. (DME) blood-glucose meter [OneTouch Ultra2 Meter] Misc See Rx Instructions .Route Qty: 1 0RF Rx Instructions: As directed (DME) lancets [OneTouch Delica Plus Lancet] 33 gauge misc See Rx Instructions .ROUTE .COMPLEX Qty: 100 11RF Dose Instruction: USE FOUR TIMES DAILY Rx Instructions: USE FOUR TIMES DAILY insulin lispro [Humalog KwikPen Insulin] 100 unit/mL insulin pen See Rx Instructions subcut BID Qty: 15 5RF Rx Instructions: subcutaneously 2 times a day; Take 6 units before breakfast and 4 units before dinner. ciclopirox 0.77 % cream topical BID (DME) pen needle, diabetic 32 gauge x 5/32 needle See Rx Instructions .ROUTE .MEDSUPPLY Qty: 100 5RF Rx Instructions: bid furosemide [Lasix] 20 mg tablet 20 mg PO QAM PRN (Reason: facial edema/swelling) Qty: 30 0RF Rx Instructions: Take once a day in the morning ONLY NEEDED if (+) facial swelling or edema Interventions: ED Discharge Assessment Last Done: 09/30/25 11:27 Discharge Date/Time: 09/30/25 11:27 Print Language: Luxembourgish
[2025-09-30 11:27] VITALS: BP 178/79; PULSE 73; RESP 18; TEMP 37.1; O2SAT 98
--- OUTSIDE RECORDS SUMMARY | 2025-09-30 18:08 | XMS_ITS | Clinical Summary ---
Author Organization [facility] Address [address] [place] [address] Phone Care Team Providers Care Nanosystems Engineer Name Role Phone Boaz Astorga MD Primary Care Provider [phone]- [phone] Allergies Active Allergy Reactions Criticality Noted Date [...] patient's age to complete this topic Insurance [employer] [facility] ([id number]) [employer] [facility] ([id number]) Care Teams Nanosystems Engineer Relationship Specialty Start Date End Date Boaz Astorga MD [address] [place] [address] PCP - General 11/01/20
--- OUTSIDE RECORDS SUMMARY | 2025-09-30 18:08 | XMS_ITS | Patient Health Record ---
[facility] Address [address] [place] [address] Care Team Providers Care Hand Bunch Maker Name Role Phone Robel Astorga MDh Primary Care Provider Yarely Medina Unavailable [phone] Allergies Allergen (clinical drug ingredient) Drug/Non Drug [...] Name Rizwan Referred [facility] Referred Provider Yarely Gibbs Referred Address [address] [place], [place],[address], Referred Provider Specialty Podiatry Referral Priority Routine Medications Medication SIG (Take, Route, Frequency, Duration) Notes Start Date End Date Status busPIRone HCl 7.5 MG 1 tablet Orally Twi ce a day Active Atorvastatin Calcium 80 MG 1 tablet Orally Once a day; Duration: 30 day(s) Not-Taking Carvedilol 6.25 MG 1 tablet with food Orally Twice a day Active Furosemide 20 MG 1 tablet Orally Once a day Not-Taking Clotrimazole-Betamethason e 1-0.05 % 1 application Externally Twice a day Active Januvia 100 MG 1 tablet Orally Once a day; Duration: 30 day(s) Not-Taking Eye Drops Active Losartan Potassium 50 MG 1 tablet Orally Once a day Not-Taking Glimepiride Active Tylenol 500 1 tablet as needed Orally Not-Taking Multivitamin Active Bactrim DS 800-160 MG 1 tablet Orally ev carlos 12 hrs; Duration: 5 days 04/04/2022 Not-Taking Ointment Base Active Pantoprazole Sodium 40 MG 1 tablet Orall y Once a day; Duration: 30 day(s) Active ALPRAZolam 0.5 MG Oral; Duration: 28 Days Active Ozempic Not-Taking Lantus Active metFORMIN HCl 500 MG 1 tablet with a modesto l Orally Once a day; Duration: 30 days Not-Taking Tradjenta 5 MG 1 tablet Orally Once a day Active Trulicity 0.75 MG/0.5ML as directed Subcutaneous Not-Taking Ketoconazole 2 % 1 application Externally [...] days 01/21/2025 Active Ciclopirox Olamine 0.77 % APPLY EXTERNAL LY TO AFFECTED AREA ON FEET TWICE A DAY; Duration: 15 Active Ammonium Lactate 12 % APLIQUE EXTERNALLY TO BOTH FEET DOS VECES AL EVA FOR 30 DAYS; Duration: 30 Active Senna 8.6 MG Orally Once a day Active Mupirocin 2 % 1 application Externally as needed Twice a day; Duration: 7 days Not-Taking Nystatin 617498 UNIT/GM 1 application Externally Twice a day Not-Takin g Rosuvastatin Calcium 40 MG TAKE 1 TABLET BY MOUTH DAILY Oral; Duration: 90 Days Active Spironolactone Activ e Vitamin D Active Immunizations Vaccine Route Administration Date Status Comme nts Influenza Unknown 08/22/2022 Administered Influenza Unknown 07/25/2023 Administered Influenza Unknown 06/22/2024 Administered Influenza Unknown 07/22/2025 Administered COVID-19 Pfizer BioNTech Vaccine Unknown 09/08/2021 Administered 1st 01/06/2021 2nd 01/27/2021 Social History Tobacco Use: Social History Observation Description Date Details (start date - stop date) Never Smoker NA - NA Alcohol Screen Question Answer Notes Did you have a drink containing alcohol in the p ast year? No Points 0 Interpretation Negative Tobacco use other than smoking: Question Answer Notes Are you an other tobacco user? No Tobacco Control (Standard) Question Answer Notes Tobacco use: Nonsmoker AUDIT-C (Standard) Question Answer Notes Did you have a drink containing alcohol in the p ast year? No Points 0 Interpretation Negative Problems Problem Type SNOMED Code ICD Code Onset Dates Problem Status W/U Status Risk Notes Problem Acquired hammer toe of right foot (80297482047344 05) Other hammer toe(s) (acquired), right foot (M20.41) Active confirmed Problem Type 2 diabetes mellitus with peripheral angiopathy (108437818) Type 2 diabetes mellitus with diabetic peripheral angiopathy without gangrene (E11.51) Active confirmed Problem Acquired hammer toe of left foot (64092579530403 03) Other hammer toe(s) (acquired), left foot (M20.42) Active confirmed Vital Signs Blood pressure diastolic 70 mm Hg 08/18/2025 Height 5 ft in 08/18/2025 Blood pressure systolic 140 mm Hg 08/18/2025 Weight 135 lbs 08/18/2025 BMI 26.36 kg/m2 08/18/2025 Encounters Encounter Location Date Provider Diagnosis [address] [address] 01/21/2025 Yarely Gibbs Tinea pedis of both feet B35.3 ; Other hammer toe(s) (acquired), right foot M20.41 ; Type 2 diabetes mellitus with diabetic peripheral angiopathy without gangrene E11.51 ; Tinea unguium B35.1 ; Pain in left toe(s) M79.675 ; Pain in right toe(s) M79.674 ; Xerosis cutis L85.3 and Other hammer toe(s) (acquired), left foot M20.[address] [address] 04/14/2025 Yarely Gibbs Type 2 diabetes mellitus with diabetic peripheral angiopathy without gangrene E11.51 ; Tinea unguium B35.1 ; Pain in left toe(s) M79.675 and Pain in right toe(s) M79.[address] [address] 08/18/2025 Yarely Gibbs Type 2 diabetes mellitus with diabetic peripheral angiopathy without gangrene E11.51 ; Tinea unguium B35.1 ; Pain in left toe(s) M79.675 and Pain in right toe(s) M79.674 [facility] [address] [address] 12/02/2024 Yarely Perica [facility] [address] [address] 01/21/2025 Yarely Perica [facility] [address] [address] 07/07/2025 Yarely Perica [facility] [address] [address] 07/16/2025 Yarely Perica [facility] [address] [address] 09/29/2025 Yarely Gibbs [facility] Encounter Date Diagnosis (ICD Code) Assessment Notes Treatment Notes Treatment Clinical Notes Section Notes 01/21/2025 Other hammer toe(s) (acquired), right foot (ICD-10 - M20.41) Patient Educated with: DIABETIC FOOT CARE INSTRUCTIONS.p df (DIABETIC FOOT CARE INSTRUCTIONS.p df) 01/21/2025 Tinea pedis of both feet (ICD-10 - B35.3) 04/14/2025 Type 2 diabetes mellitus with diabetic peripheral angiopathy without gangrene (ICD-10 - E11.51) 04/14/2025 Tinea unguium (ICD-10 - B35.1) 08/18/2025 Type 2 diabetes mellitus with diabetic peripheral angiopathy without gangrene (ICD-10 - E11.51) 08/18/2025 Tinea unguium (ICD-10 - B35.1) 04/14/2025 Pain in left toe(s) (ICD-10 - M79.675) 01/21/2025 Type 2 diabetes mellitus with diabetic peripheral angiopathy without gangrene (ICD-10 - E11.51) 01/21/2025 Tinea unguium (ICD-10 - B35.1) 04/14/2025 Pain in right toe(s) (ICD-10 - M79.674) 08/18/2025 Pain in left toe(s) (ICD-10 - M79.675) 08/18/2025 Pain in right toe(s) (ICD-10 - M79.674) [...] 06/07/2022 Next Appt Details Provider Name:Yarely puckett, 11/18/2025 01:30:00 PM, [address] [place] [address], [phone], Insurance Providers Payer Name Payer Address Payer Phone Subscriber Number Group Number Insured Name Patient Relationship to Insured Coverage Start Date Coverage End Date [facility] [address] [place] [phone] [id number] Alicia Noel Self - patient is the [...]
== END 2025-09-30 11:27 | disposition home or self-care (01) ==
PROVIDERS: Emergency Provider Emergency Medicine; PCP Internal Medicine
DX: L03.116 Cellulitis of left lower limb (principal); E11.9 Type 2 diabetes mellitus without complications; I10 Essential (primary) hypertension; Z79.899 Other long term (current) drug therapy; Z79.4 Long term (current) use of insulin
CPT/HCPCS: 97803; 99282; 99283

== ENCOUNTER 2025-09-30 11:41 | Outpatient (AMB) | payer OTHER, SELFPAY ==
[2025-09-30 12:04] VITALS: BMI 29.9
--- NOTE | 2025-09-30 12:04 | A.OFFVIS_ITS ---
VS Expanded 09/30/25 12:04 Height 4 ft 9 in Weight 138 lb BMI 29.9 Intake Visit Reasons: T2DM Allergies aspirin (Aspirin) Allergy (Severe, Verified 09/30/25 10:53) MOUTH SWELLING Penicillins (PENICILLINS) Allergy (Intermediate, Verified 09/30/25 10:53) ITCHING caffeine (Caffeine) Allergy (Mild, Verified 09/30/25 10:53) NERVOUSNESS lisinopril (Lisinopril) Allergy (Mild, Verified 09/30/25 10:53) CHANGES IN BLOOD PRESSURE ranitidine (RANITIDINE) Allergy (Mild, Verified 09/30/25 10:53) HEADACHE amlodipine (AMLODIPINE) Allergy (Unknown, Verified 09/30/25 10:53) UNKNOWN amoxicillin Allergy (Unknown, Verified 09/30/25 10:53) itching, severe with rash diclofenac Allergy (Unknown, Verified 09/30/25 10:53) Unknown escitalopram Allergy (Unknown, Verified 09/30/25 10:53) abdominal discomfort, drowsiness esomeprazole (Nexium) Allergy (Unknown, Verified 09/30/25 10:53) Unknown isosorbide (ISOSORBIDE) Allergy (Unknown, Verified 09/30/25 10:53) UNKNOWN lidocaine (Lidoderm) Allergy (Unknown, Verified 09/30/25 10:53) weakness mirtazapine Allergy (Unknown, Verified 09/30/25 10:53) Unknown nystatin Allergy (Unknown, Verified 09/30/25 10:53) rash sertraline (SERTRALINE) Allergy (Unknown, Verified 09/30/25 10:53) UNKNOWN dexlansoprazole (From DEXILANT) Adverse Reaction (Severe, Verified 09/30/25 10:53) AGITATION hydrochlorothiazide (Hydrochlorothiazide) Adverse Reaction (Intermediate, Verified 09/30/25 10:53) DROP IN BLOOD PRESSURE hydrocortisone (From Cortizone-10) Adverse Reaction (Mild, Verified 09/30/25 10:53) RAISES BLOOD SUGAR semaglutide (From Ozempic) Adverse Reaction (Mild, Verified 09/30/25 10:53) gerd topiramate (From TOPAMAX) Adverse Reaction (Unknown, Verified 09/30/25 10:53) AGITATION trajenta Allergy (Severe, Uncoded 09/25/25 13:06) numbness From PLAVIX Allergy (Unknown, Uncoded 09/25/25 13:06) PT UNSURE OF REACTION Medical tape Allergy (Unknown, Uncoded 09/25/25 13:06) Rash Nutrition Presentation Details: Pt presents for MNT for Diabetes Pt reports appetite is good, has 3 meals a day, and chooses the same foods. Patient reports currently not monitoring her blood glucose, apparently the pharmacy has not received the prescription. Noted this message was sent to the provider by the front staff office today Pt reports having 3 meals per day Typical meal B: cheerios/lactaid milk and banana L chicken and root vegetables, water or diluted juice with water D: root vegetables and chicken, water Snacks: Crackers with peanut butter or half a sandwich or a fruit, choosing no added sugar fruits Patient reports having water with meals and may have a cup of tea once or twice a day Reports milk spoils quickly and does not have often, gets lactaid milk PFSH Medical History Hyperparathyroidism Left bundle branch block Type 2 diabetes mellitus with chronic kidney disease Chronic kidney disease, stage 4 (severe) Type 2 diabetes mellitus Obesity Skin abrasion HARRIET (renal artery stenosis) Nonischemic cardiomyopathy Urinary incontinence GERD (gastroesophageal reflux disease) COVID-19 Pneumonia due to COVID-19 virus Vertigo Obesity (BMI 30-39.9) Depression Anxiety Stasis edema of both lower extremities Cardiomyopathy Pure hypercholesterolemia Hyperkalemia Renal artery stenosis Benign essential hypertension Conjunctival hemorrhage of right eye Surgical History Hx of colonoscopy Hx of myomectomy History of cataract surgery History of lumpectomy of left breast History of cholecystectomy Family History Father CVD (cardiovascular disease) Myocardial infarction Mother Myocardial infarction CVD (cardiovascular disease) Brother Myocardial infarction Family/Other FH: prostate cancer Social History Household Members: None Housing: Apartment Do you presently have visiting nurse or other home services: No Alcohol intake: never Patient Tobacco Use Status: Former Tobacco user Tobacco use type: Cigarette e-Cigarette/Vaping Use: Never Used Second Hand Smoke Exposure: No Advance Directives Date on File: 10/16/21 service: No Current occupational status: disabled Cognitive needs: No Hearing needs: No Vision needs: Yes Assessment & Plan Assessment & Plan (1) Type 2 diabetes mellitus with chronic kidney disease: Code(s): E11.22 - Type 2 diabetes mellitus with diabetic chronic kidney disease Category: Medical Qualifiers: 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 fpc insulin use: without long term care phlebotomist use Chronic kidney disease stage: stage 4 (severe) Qualified Code(s): E11.22 - Type 2 diabetes mellitus with diabetic chronic kidney disease; N18.4 - Chronic kidney disease, stage 4 (severe) Plan: Wt: 61 Kg ( 11/15 ), 62 kg(02/13), 04/28/25, 62.7 (10/15 Est kcal needs as per MSJ: 1400 (40% carb, 30% protein/fat) Est fluid needs as per 25-30 ml/d: 1800 Est prot per day as per 1 g/kg bw: 61 Recommend fiber intake : 8-10 g per day and gradually increase to 25-28 g per day for women and 35-38 g for men or as tolerated Recommend sodium intake per day : less than 2000 mg Educated patient on: ( R = reviewed V = verbalizes understanding N/R = needs review N/A = not applicable * Food sources of carbohydrate, adequate serving sizes and its role in various health conditions: R * Differences between complex carbohydrates a simple carbohydrates, role of fiber in diet: R * Lean protein sources of foods: R * Differences between types of fats and role in diet (mono on saturated fat fatt y acids, saturated fatty acids, trans fats): R V N/R * Food sources of sodium in salt and healthy modifications for heart health in kidney health: R * Vitamins and minerals: R V N/R * Healthy plate method concept: R V * Physical activity: Benefits a precaution: R V N/R * Hypoglycemia protocol (rule of 15): R V N/R * Dietary prevention of Hyperglycemia: R Patient Instructions: Choose fairlife milk 1 -2 cups a days as snack in between meals Do not add table salt to the foods Coding Level of Care Code Nutr Indiv Subseq (04813) Diagnoses Type 2 diabetes mellitus with stage 4 chronic kidney disease, without long-term current use of insulin E11.22; N18.4 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 fpc insulin use: without long term care phlebotomist use Chronic kidney disease stage: stage 4 (severe) Time Spent (min) 30
== END 2025-09-30 12:24 | disposition home or self-care (01) ==
LOC: HO.ENCR 11:41
PROVIDERS: PCP Internal Medicine; Visit Provider Dietitian, Registered
DX: E11.22 Type 2 diabetes mellitus with diabetic chronic kidney disease (principal); N18.4 Chronic kidney disease, stage 4 (severe)

== ENCOUNTER 2025-10-06 13:48 | Outpatient (REF) | payer OTHER, SELFPAY ==
--- OUTSIDE RECORDS SUMMARY | 2024-05-27 08:30 | XMS_ITS ---
Author Organization [facility] Address [address] [place] [address] Care Team Providers Care Bessemer Converter Blower Name Role Phone Rizwan SORENSON, Boaz Primary Care Provider Yarely Medina Unavailable [phone] Medications Medication SIG (Take, Route, Frequency, Duration) Notes Start Date End Date Status Eye Drops Active Carvedilol 6.25 MG 1 tablet with food Orally Twice a day Active Clotrimazole-Betamethason e 1-0.05 % 1 application Externally Twice a day Active busPIRone HCl 7.5 MG 1 tablet Orally Twi ce a day Active Glimepiride Active Ketoconazole 2 % 1 application Externally Twice a day; Duration: 30 days 06/06/2023 Active Mupirocin 2 % 1 application Externally Twice a day as neede to any open sores; Duration: 30 days 04/04/2022 Active ALPRAZolam 0.25 MG 1 tablet Orally Twic e a day PRN Active Ozempic Active Ammonium Lactate Act roshni Ciclopirox Olamine 0.77 % 1 application to affected area Externally to feet Twice a day; Duration: 30 days Not-Taking Mupirocin 2 % 1 application Externally as needed Twice a day; Duration: 7 days Not-Taking Nystatin 784697 UNIT/GM 1 application Externally Twice a day Not-Takin g Tylenol 500 1 tablet as needed Orally Not-Taking Bactrim DS 800-160 MG 1 tablet Orally ev carlos 12 hrs; Duration: 5 days 04/04/2022 Not-Taking Atorvastatin Calcium 80 MG 1 tablet Orally Once a day; Duration: 30 day(s) Not-Taking Losartan Potassium 50 MG 1 tablet Orally Once a day Not-Taking Senna 8.6 MG Orally Once a day Not-Taking Furosemide 20 MG 1 tablet Orally Once a day Not-Taking Januvia 100 MG 1 tablet Orally Once a day; Duration: 30 day(s) Not-Taking Vitamin D Active Ciclopirox Olamine 0.77 % 1 application to affected area Externally to feet Twice a day; Duration: 30 days Not-Taking Spironolactone Activ e Trulicity 0.75 MG/0.5ML as directed Subcutaneous Not-Taking Rosuvastatin Calcium 40 MG TAKE 1 TABLET BY MOUTH DAILY Oral; Duration: 90 Days Active Pantoprazole Sodium 40 MG 1 tablet Orall y Once a day; Duration: 30 day(s) Active Multivitamin Active Ointment Base Active metFORMIN HCl 500 MG 1 tablet with a modesto l Orally Once a day; Duration: 30 days Active Encounters Encounter Location Date Provider Diagnosis [facility] [address] [address] 05/27/2024 Yarely Gibbs Plan Of Treatment Next Appt Details Provider Name:Yarely puckett, 11/18/2025 01:30:00 PM, [address] [place] [address], [phone], Progress Notes * Alicia DUONGDOB:1945 (80 yo F)Acc No.[id number]:05/27/2024 Progress Note Patient: Alicia ROQUE Provider: Jarad Gibbs DPM :1945 A ge:78 Y S ex:Female Date:05/27/2024 Address:[address] [place], [place] [id number] Pcp:Boza Astorga MD Subjective: * Chief Complaints: * * HPI: A t Risk footcare: Pt States Last PCP Visit: D ate: 0 01/11/2024 * Medical History: * Medications: T aking Ozempic , Taking Ammonium Lactate , Taking ALPRAZolam 0.25 MG Tablet 1 tablet Orally Twice a day , Notes to Pharmacist: PRN, Taking busPIRone HCl 7.5 MG Tablet 1 tablet Orally Twice a day , Taking Carvedilol 6.25 MG Tablet 1 tablet with food Orally Twice a day , Taking Clotrimazole-Betamethasone 1-0.05 % Cream 1 application Externally Twice a day , Taking Eye Drops , Taking Glimepiride , Taking metFORMIN HCl 500 MG Tablet 1 tablet with a meal Orally Once a day , Taking Multivitamin , Taking Ointment Base , Taking Pantoprazole Sodium 40 MG Tablet Delayed Release 1 tablet Orally Once a day , Taking Rosuvastatin Calcium 40 MG Tablet TAKE 1 TABLET BY MOUTH DAILY Oral , Taking Spironolactone , Taking Vitamin D , Taking Ketoconazole 2 % Cream 1 application Externally Twice a day , Taking Mupirocin 2 % Ointment 1 application Externally Twice a day as neede to any open sores , Not-Taking/PRN Trulicity 0.75 MG/0.5ML Solution Pen-injector as directed Subcutaneous , Not-Taking/PRN Ciclopirox Olamine 0.77 % Cream 1 application to affected area Externally to feet Twice a day , Not-Taking/PRN Atorvastatin Calcium 80 MG Tablet 1 tablet Orally Once a day , Not-Taking/PRN Furosemide 20 MG Tablet 1 tablet Orally Once a day , Not- Taking/PRN Januvia 100 MG Tablet 1 tablet Orally Once a day , Not-Taking/PRN Losartan Potassium 50 MG Tablet 1 tablet Orally Once a day , Not-Taking/PRN Senna 8.6 MG Tablet Orally Once a day , Not-Taking/PRN Tylenol 500 mg 1 tablet as needed Orally , Not- Taking/PRN Bactrim DS 800-160 MG Tablet 1 tablet Orally every 12 hrs , Not-Taking/PRN Mupirocin 2 % Ointment 1 application Externally as needed Twice a day , Not-Taking/PRN Nystatin 808640 UNIT/GM Cream 1 application Externally Twice a day , Not-Taking/PRN Ciclopirox Olamine 0.77 % Cream 1 application to affected area Externally to feet Twice a day Objective: * Vitals: Assessment: Plan: * Treatment: * Images: * The named appointment provid er may or may not be the originator of this progress note, and it is not deemed complete until electronically signed by the appointment provider. Sign off status: Pending * Provider: Jarad Gibbs DPM Date: 0 05/27/2024 Generated for Mary Ann baca/Suzy/eTransmitting on: 1 12/07/2024 05:57 PM EST History and Physical Notes * HPI (History of Present Illness) Category Sub-Category Detail Notes Category Not es At Risk footcare Pt States Last PCP Visit: Date:: 01/11/20 24
--- OUTSIDE RECORDS SUMMARY | 2024-12-02 09:00 | XMS_ITS ---
Author Organization [facility] Address [address] [place] [address] Care Team Providers Care Nuclear Radiologist Name Role Phone Rizwan SORENSON, Boaz Primary Care Provider Yarely Medina Unavailable [phone] Medications Medication SIG (Take, Route, Frequency, Duration) Notes Start Date End Date Status Ciclopirox Olamine 0.77 % 1 application to affected area Externally to feet Twice a day; Duration: 30 days Not-Taking Ammonium Lactate 12 % 1 application Externally Twice a day to both feet; Duration: 30 days Active Mupirocin 2 % 1 application Externally Twice a day as neede to any open sores; Duration: 30 days 04/04/2022 Active Ammonium Lactate 10 % 1 application Externally Twice a day to both feet; Duration: 30 days Active Ketoconazole 2 % 1 application Externally Twice a day; Duration: 30 days 06/06/2023 Active Nystatin 027874 UNIT/GM 1 application Externally Twice a day Not-Takin g Mupirocin 2 % 1 application Externally as needed Twice a day; Duration: 7 days Not-Taking Bactrim DS 800-160 MG 1 tablet Orally ev carlos 12 hrs; Duration: 5 days 04/04/2022 Not-Taking Tylenol 500 1 tablet as needed Orally Not-Taking Senna 8.6 MG Orally Once a day Not-Taking Januvia 100 MG 1 tablet Orally Once a day; Duration: 30 day(s) Not-Taking Furosemide 20 MG 1 tablet Orally Once a day Not-Taking Atorvastatin Calcium 80 MG 1 tablet Orally Once a day; Duration: 30 day(s) Not-Taking Ciclopirox Olamine 0.77 % 1 application to affected area Externally to feet Twice a day; Duration: 30 days Not-Taking Losartan Potassium 50 MG 1 tablet Orally Once a day Not-Taking Trulicity 0.75 MG/0.5ML as directed Subcutaneous Not-Taking Vitamin D Active Spironolactone Activ e Rosuvastatin Calcium 40 MG TAKE 1 TABLET BY MOUTH DAILY Oral; Duration: 90 Days Active Pantoprazole Sodium 40 MG 1 tablet Orall y Once a day; Duration: 30 day(s) Active metFORMIN HCl 500 MG 1 tablet with a modesto l Orally Once a day; Duration: 30 days Active Glimepiride Active Eye Drops Active Ointment Base Active Multivitamin Active ALPRAZolam 0.25 MG 1 tablet Orally Twic e a day PRN Active Carvedilol 6.25 MG 1 tablet with food Orally Twice a day Active busPIRone HCl 7.5 MG 1 tablet Orally Twi ce a day Active Clotrimazole-Betamethason e 1-0.05 % 1 application Externally Twice a day Active Ozempic Active Encounters Encounter Location Date Provider Diagnosis [facility] [address] [address] 12/02/2024 Yarely Gibbs Plan Of Treatment Next Appt Details Provider Name:Yarely puckett, 11/18/2025 01:30:00 PM, [address] [place] [address], [id number], Progress Notes * Alicia DUONGDOB:1945 (80 yo F)Acc No.[id number]:12/02/2024 Progress Note Patient: Alicia ROQUE Provider: Jarad Gibbs DPM :1945 A ge:79 Y S ex:Female Date:12/02/2024 Address:[address] [place], [place] [id number] Pcp:Boaz Astorga MD Subjective: * Chief Complaints: * * HPI: A t Risk footcare: Pt States Last PCP Visit: D ate: 0 01/11/2024 * Medical History: * Medications: T aking Ozempic , Taking ALPRAZolam 0.25 MG Tablet 1 [...] application Externally Twice a day , Taking Ammonium Lactate 10 % Lotion 1 application Externally Twice a day to both feet , Taking Mupirocin 2 % Ointment 1 application Externally Twice a day as neede to any open sores , Taking Ammonium Lactate 12 % Lotion 1 application Externally Twice a day to both feet , Not-Taking/PRN Trulicity 0.75 MG/0.5ML Solution Pen-injector [...] needed Twice a day , Not-Taking/PRN Nystatin [id number] UNIT/GM Cream 1 application Externally Twice a [...] * Provider: Jarad Gibbs DPM Date: 0 12/02/2024 Generated for Mary Ann Carbone on: 1 12/07/2024 05:57 PM EST History and Physical Notes * HPI (History of Present Illness) Category Sub-Category Detail Notes Category Not es At Risk footcare Pt States Last PCP Visit: Date:: 01/11/20 24
--- OUTSIDE RECORDS SUMMARY | 2025-02-18 06:30 | XMS_ITS ---
Author Organization [facility] Address [address] [place] [address] Care Team Providers Care Blood Bank Order Control Clerk Name Role Phone Rizwan SORENSON, Boaz Primary Care Provider UnaYarely White Unavailable [phone] Encounters Encounter Location Date Provider Diagnosis [address] [address] 02/18/2025 Yarely Gibbs Plan Of Treatment Next Appt Details Provider Name:Yarely puckett, 11/18/2025 01:30:00 PM, [address] [place], [address], Progress Notes * Alicia DUONGDOB:1945 (80 yo F)Acc No.[id number]:02/18/2025 Progress Note Patient: Alicia ROQUE Provider: aJrad Gibbs DPM :1945 A ge:79 Y S ex:Female Date:02/18/2025 Address:[address] [facility] [address], [place], [place] Pcp:Boaz Astorga MD Subjective: * Chief Complaints: [...] Generated for Mary Ann baca/Suzy/Ventura on: 1 12/07/2024 05:57 PM EST
--- OUTSIDE RECORDS SUMMARY | 2025-07-07 10:00 | XMS_ITS ---
Author Organization [facility] Address [address] [place] [address] Care Team Providers Care Silk Folder Name Role Phone Rizwan SORENSON, Boaz Primary Care Provider UnaYarely White Unavailable [phone] Encounters Encounter Location Date Provider Diagnosis [address] [address] 07/07/2025 Yarely Gibbs Plan Of Treatment Next Appt Details Provider Name:Yarely puckett, 11/18/2025 01:30:00 PM, [address] [place], [address], Progress Notes * Alicia DUONGDOB:1945 (80 yo F)Acc No.[id number]:07/07/2025 Progress Note Patient: Alicia ROQUE Provider: Jarad Gibbs DPM :1945 A ge:79 Y S ex:Female Date:07/07/2025 Address:[address] [facility] [address] [address], [place], [place] Pcp:Boaz Astorga MD Subjective: * Chief Complaints: * * Medical History: Objective: * Vitals: Assessment: Plan: * Treatment: * Images: * The named appointment provid er may or may not be the originator of this progress note, and it is not deemed complete until electronically signed by the appointment provider. Sign off status: Pending * Provider: Jarad Gibbs DPM Date: 0 07/07/2025 Generated for Mary Ann baca/Suzy/Ventura on: 1 12/07/2024 05:57 PM EST
[2025-10-06 14:03] LABS: MANUAL DIFF FLAG NO
[2025-10-06 14:48] LABS: Hematocrit 38.8 % (37.0-47.0); Hemoglobin 12.7 g/dl (12.0-16.0); Imm Gran Abs Auto 0.01 X10*3/uL (0.00-0.03); Imm Gran Pct Auto 0.2 % (0.0-0.4); Lymphocytes Absolute Auto 0.8 X10*3/uL (1.2-4.9); Mean Corpuscular HGB Conc 32.7 g/dl (31.0-35.0); Mean Corpuscular Hemoglobin 31.4 pg (27.0-33.0); Mean Corpuscular Volume 96.0 fL (80.0-98.0); NRBC Abs Auto 0.000 X10*3/uL (0.0-0.012); NRBC Pct Auto 0.0 /100WBC (0.0-0.2); Platelet Count 224 X10*3/uL (160-400); Red Blood Count 4.04 X10*6/uL (4.20-5.50); White Blood Count 4.9 X10*3/uL (4.8-10.8)
[2025-10-06 16:19] LABS: Parathyroid Hormone Intact 167.1 pg/mL (8.7-77.1)
[2025-10-06 16:23] LABS: Anion Gap 11 (12-20); Blood Urea Nitrogen 45 mg/dL (9-16); Calcium 10.0 mg/dL (8.4-10.2); Carbon Dioxide 25 mmol/L (22-29); Chloride 103 mmol/L (96-108); Estimated Glomerular Filt Rate 20; Potassium 4.8 mmol/L (3.3-5.1); Sodium 134 mmol/L (135-145)
--- OUTSIDE RECORDS SUMMARY | 2025-10-06 17:57 | XMS_ITS | Patient Health Record ---
Author [facility] Address [address] [place] [address] Care Team Providers Care Human Resources Project Coordinator Name Role Phone Robel Astorga MDh Primary Care Provider Yarely Medina Unavailable [phone] Allergies Allergen (clinical drug ingredient) Drug/Non Drug [...] Boaz Referring Provider Last Name Rizwan Referred [facility] Referred Provider Yarely Gibbs Referred Address [address] [place], [place],[address], Referred Provider Specialty Podiatry Referral Priority Routine [...] a day; Duration: 7 days Not-Taking Nystatin 258206 UNIT/GM 1 application Externally Twice a day [...] Problem Acquired hammer toe of right foot (41011083525949 05) Other hammer toe(s) (acquired), right foot (M20.41) Active confirmed Problem Type 2 diabetes mellitus with peripheral angiopathy (048563217) Type 2 diabetes mellitus with diabetic peripheral angiopathy without gangrene (E11.51) Active confirmed Problem Acquired hammer toe of left foot (72362765572645 03) Other hammer toe(s) (acquired), left foot (M20.42) Active confirmed Vital Signs Blood pressure diastolic 70 mm Hg 08/18/2025 Height 5 ft in 08/18/2025 Blood pressure systolic 140 mm Hg 08/18/2025 Weight 135 lbs 08/18/2025 BMI 26.36 kg/m2 08/18/2025 Encounters Encounter Location Date Provider Diagnosis [address] [address] 01/21/2025 Yarely Gibbs Tinea pedis of both feet B35.3 ; Other hammer toe(s) (acquired), right foot M20.41 ; Type 2 diabetes mellitus with diabetic peripheral angiopathy without gangrene E11.51 ; Tinea unguium B35.1 ; Pain in left toe(s) M79.675 ; Pain in right toe(s) M79.674 ; Xerosis cutis L85.3 and Other hammer toe(s) (acquired), left foot M20.[address] [address] 04/14/2025 Yarely Gibbs Type 2 diabetes mellitus with diabetic peripheral angiopathy without gangrene E11.51 ; Tinea unguium B35.1 ; Pain in left toe(s) M79.675 and Pain in right toe(s) M79.[address] [address] 08/18/2025 Yarely Gibbs Type 2 diabetes mellitus with diabetic peripheral angiopathy without gangrene E11.51 ; Tinea unguium B35.1 ; Pain in left toe(s) M79.675 and Pain in right toe(s) M79.674 [facility] [address] [address] 12/02/2024 Yarely Perica [facility] [address] [address] 01/21/2025 Yarely Perica [facility] [address] [address] 07/07/2025 Yarely Perica [facility] [address] [address] 07/16/2025 Yarely Perica [facility] [address] [address] 09/29/2025 Yarely Gibbs [facility] Encounter Date Diagnosis (ICD Code) Assessment [...] Provider Name:Yarely puckett, 11/18/2025 01:30:00 PM, [address] [place] [address], [phone], Insurance Providers Payer Name Payer Address Payer Phone Subscriber Number Group Number Insured Name Patient Relationship to Insured Coverage Start Date Coverage End Date [facility] [address] [place] [phone] [id number] Alicia Noel Self - patient is the [...]
== END 2025-10-06 13:49 | disposition home or self-care (01) ==
LOC: HO.LAB 13:48
PROVIDERS: PCP Internal Medicine; Visit Provider Internal Medicine Nephrology
DX: I12.9 Hypertensive chronic kidney disease with stage 1 through stage 4 chronic kidney disease, or unspecified chronic kidney disease (principal); N18.4 Chronic kidney disease, stage 4 (severe); N25.81 Secondary hyperparathyroidism of renal origin
CPT/HCPCS: 36415; 80051; 82306; 82310; 82565; 83970; 84520; 85025

== ENCOUNTER 2025-10-16 08:47 | Outpatient (REF) | payer OTHER, SELFPAY ==
--- OUTSIDE RECORDS SUMMARY | 2024-05-27 08:30 | XMS_ITS ---
Author Organization [facility] Address [address] [facility] [address] [facility] [place] [address] Care Team Providers Care Ticket Collector Or Usher Name Role Phone Rizwan SORENSON, [place] Primary Care Provider Yarely Medina Unavailable [phone] Medications Medication SIG (Take, Route, Frequency, Duration) [...] a day; Duration: 7 days Not-Taking Nystatin 256857 UNIT/GM 1 application Externally Twice a day [...] Active Encounters Encounter Location Date Provider Diagnosis [facility] [address] [address] 05/27/2024 Yarely Gibbs Plan Of Treatment Next Appt Details Provider Name:Yarely puckett, 11/18/2025 01:30:00 PM, [address] [place] [address], [phone], Progress Notes * Alicia DUONGDOB:1945 (80 yo F)Acc No.[id number]:05/27/2024 Progress Note Patient: Alicia ROQUE Provider: Jarad Gibbs DPM :1945 A ge:78 Y S ex:Female Date:05/27/2024 Address:[address] [place], [place] [phone] Pcp:Boaz Astorga MD Subjective: * Chief Complaints: [...] needed Twice a day , Not-Taking/PRN Nystatin 064533 UNIT/GM Cream 1 application Externally Twice a [...] Generated for Mary Ann baca/Suzy/eTransmitting on: 1 12/17/2024 08:50 AM EST History and Physical Notes * HPI (History of Present Illness) Category Sub-Category Detail Notes Category Not es At Risk footcare Pt States Last PCP Visit: Date:: 01/11/20 24
--- OUTSIDE RECORDS SUMMARY | 2024-12-02 09:00 | XMS_ITS ---
Author Organization [facility] Address [address] [facility] [place] [address] Care Team Providers Care Laborer Ammunition Assembly Name Role Phone Rizwan SORNESON, Boaz Primary Care Provider Yarely Medina Unavailable [phone] Medications Medication SIG (Take, Route, Frequency, Duration) [...] day; Duration: 30 days 06/06/2023 Active Nystatin 123576 UNIT/GM 1 application Externally Twice a day [...] Active Encounters Encounter Location Date Provider Diagnosis [facility] [address] [address] 12/02/2024 Yarely Gibbs Plan Of Treatment Next Appt Details Provider Name:Yarely puckett, 11/18/2025 01:30:00 PM, [address] [place] [address], [phone], Progress Notes * Alicia DUONGDOB:1945 (80 yo F)Acc No.[id number]:12/02/2024 Progress Note Patient: Alicia ROQUE Provider: Jarad Gibbs DPM :1945 A ge:79 Y S ex:Female Date:12/02/2024 Address:[address] [place], [place] [phone] Pcp:Boaz Astorga MD Subjective: * Chief Complaints: [...] needed Twice a day , Not-Taking/PRN Nystatin 139344 UNIT/GM Cream 1 application Externally Twice a [...] Generated for Mary Ann Carbone on: 1 12/17/2024 08:50 AM EST History and Physical Notes * HPI (History of Present Illness) Category Sub-Category Detail Notes Category Not es At Risk footcare Pt States Last PCP Visit: Date:: 01/11/20 24
--- OUTSIDE RECORDS SUMMARY | 2025-02-18 06:30 | XMS_ITS ---
Author Organization [facility] Address [address] [place] [address] Care Team Providers Care Laborer Concrete Paving Name Role Phone Rizwan SORENSON, Boaz Primary Care Provider UnaYarely White Unavailable [phone] Encounters Encounter Location Date Provider Diagnosis [address] [address] 02/18/2025 Yarely Gibbs Plan Of Treatment Next Appt Details Provider Name:Yarely puckett, 11/18/2025 01:30:00 PM, [address] [place], [address], Progress Notes * Alicia DUONGDOB:1945 (80 yo F)Acc No.[id number]:02/18/2025 Progress Note Patient: Alicia ROQUE Provider: Jarad Gibbs DPM :1945 A ge:79 Y S ex:Female Date:02/18/2025 Address:[address], [place], [place] Pcp:Boaz Astorga MD Subjective: * Chief Complaints: [...] Date: 0 02/18/2025 Generated for Mary Ann baca/Suzy/Jonathonitting on: 1 12/17/2024 08:50 AM EST
--- OUTSIDE RECORDS SUMMARY | 2025-07-07 10:00 | XMS_ITS ---
Author Organization [facility] Address [address] [place] [address] Care Team Providers Care Historiography Teacher Name Role Phone Rizwan SORENSON, Boaz Primary Care Provider UnaYarely White Unavailable [phone] Encounters Encounter Location Date Provider Diagnosis [address] [address] 07/07/2025 Yarely Gibbs Plan Of Treatment Next Appt Details Provider Name:Yarely puckett, 11/18/2025 01:30:00 PM, [address] [place], [address], Progress Notes * Alicia DUONGDOB:1945 (80 yo F)Acc No.[id number]:07/07/2025 Progress Note Patient: Alicia ROQUE Provider: Jarad Gibbs DPM :1945 A ge:79 Y S ex:Female Date:07/07/2025 Address:[address] [facility] [address], [place], [place] Pcp:Boaz Astorga MD Subjective: * Chief Complaints: [...] Generated for Mary Ann baca/Suzy/Ventura on: 1 12/17/2024 08:50 AM EST
--- OUTSIDE RECORDS SUMMARY | 2025-10-16 08:50 | XMS_ITS | Clinical Summary ---
Author Organization [facility] Address [address] [place] [address] Phone Care Team Providers Care Patient Information Coordinator Name Role Phone Boaz Astorga MD Primary Care Provider [phone]- [phone] Allergies Active Allergy Reactions Criticality Noted Date [...] patient's age to complete this topic Insurance [employer] [facility] ([id number]) [employer] [facility] ([id number]) Care Teams Patient Information Coordinator Relationship Specialty Start Date End Date Boaz Astorga MD [address] [place] [address] PCP - General 11/01/20
--- OUTSIDE RECORDS SUMMARY | 2025-10-16 08:51 | XMS_ITS | Patient Health Record ---
Author [facility] Address [address] [facility] [address] Care Team Providers Care Body Component Engineer Name Role Phone Robel Astorga MDh Primary Care Provider Yarely Medina Unavailable [phone] Allergies Allergen (clinical drug ingredient) Drug/Non Drug [...] Last Name Rizwan Referred [facility] Referred Provider Yarely Gibbs Referred Address [address] [place], [place],[address], Referred Provider Specialty Podiatry Referral Priority Routine [...] a day; Duration: 7 days Not-Taking Nystatin 117501 UNIT/GM 1 application Externally Twice a day [...] Problem Acquired hammer toe of right foot (13914673903075 05) Other hammer toe(s) (acquired), right foot (M20.41) Active confirmed Problem Type 2 diabetes mellitus with peripheral angiopathy (449521521) Type 2 diabetes mellitus with diabetic peripheral angiopathy without gangrene (E11.51) Active confirmed Problem Acquired hammer toe of left foot (47054732054432 03) Other hammer toe(s) (acquired), left foot (M20.42) Active confirmed Vital Signs Blood pressure diastolic 70 mm Hg 08/18/2025 Height 5 ft in 08/18/2025 Blood pressure systolic 140 mm Hg 08/18/2025 Weight 135 lbs 08/18/2025 BMI 26.36 kg/m2 08/18/2025 Encounters Encounter Location Date Provider Diagnosis [address] [address] 01/21/2025 Yarely Gibbs Tinea pedis of both feet B35.3 ; Other hammer toe(s) (acquired), right foot M20.41 ; Type 2 diabetes mellitus with diabetic peripheral angiopathy without gangrene E11.51 ; Tinea unguium B35.1 ; Pain in left toe(s) M79.675 ; Pain in right toe(s) M79.674 ; Xerosis cutis L85.3 and Other hammer toe(s) (acquired), left foot M20.[address] [address] 04/14/2025 Yarely Gibbs Type 2 diabetes mellitus with diabetic peripheral angiopathy without gangrene E11.51 ; Tinea unguium B35.1 ; Pain in left toe(s) M79.675 and Pain in right toe(s) M79.[address] [address] 08/18/2025 Yarely Gibbs Type 2 diabetes mellitus with diabetic peripheral angiopathy without gangrene E11.51 ; Tinea unguium B35.1 ; Pain in left toe(s) M79.675 and Pain in right toe(s) M79.674 [facility] [address] [address] 12/02/2024 Yarely Perica [facility] [address] [address] 01/21/2025 Yarely Perica [facility] [address] [address] 07/07/2025 Yarely Perica [facility] [address] [address] 07/16/2025 Yarely Perica [facility] [address] [address] 09/29/2025 Yarely Gibbs [facility] Encounter Date Diagnosis (ICD Code) [...] Details Provider Name:Yarely puckett, 11/18/2025 01:30:00 PM, [address] [place] [address], [address], Insurance Providers Payer Name Payer Address Payer Phone Subscriber Number Group Number Insured Name Patient Relationship to Insured Coverage Start Date Coverage End Date [facility] [address] [place] [phone] [id number] Alicia Noel Self - patient is the [...]
[2025-10-16 09:17] LABS: MANUAL DIFF FLAG NO
[2025-10-16 09:32] LABS: Hematocrit 37.1 % (37.0-47.0); Hemoglobin 11.9 g/dl (12.0-16.0); Imm Gran Abs Auto 0.02 X10*3/uL (0.00-0.03); Imm Gran Pct Auto 0.4 % (0.0-0.4); Lymphocytes Absolute Auto 1.2 X10*3/uL (1.2-4.9); Mean Corpuscular HGB Conc 32.1 g/dl (31.0-35.0); Mean Corpuscular Hemoglobin 30.4 pg (27.0-33.0); Mean Corpuscular Volume 94.9 fL (80.0-98.0); NRBC Abs Auto 0.000 X10*3/uL (0.0-0.012); NRBC Pct Auto 0.0 /100WBC (0.0-0.2); Platelet Count 190 X10*3/uL (160-400); Red Blood Count 3.91 X10*6/uL (4.20-5.50); White Blood Count 5.5 X10*3/uL (4.8-10.8)
[2025-10-16 10:10] LABS: Appearance Urine Clear; Glucose Urine UA Negative (Negative); PH 6.5 (5.0-9.0); Specific Gravity - Urine <= 1.005 (1.005-1.025)
[2025-10-16 10:27] LABS: Alanine Aminotransferase 33 U/L (0-31); Albumin Level 4.4 g/dL (3.5-5.0); Alkaline Phosphatase 132 U/L (39-117); Anion Gap 14 (12-20); Aspartate Amino Transferase 42 U/L (5-31); Blood Urea Nitrogen 44 mg/dL (9-16); Calcium 9.8 mg/dL (8.4-10.2); Carbon Dioxide 24 mmol/L (22-29); Chloride 103 mmol/L (96-108); Cholesterol 135 mg/dL (<200); Estimated Glomerular Filt Rate 20; HDL Cholesterol 52 mg/dL (>40); Potassium 4.7 mmol/L (3.3-5.1); Sodium 136 mmol/L (135-145); Total Protein 7.6 g/dL (6.5-8.0); Triglycerides 65 mg/dL (<150)
[2025-10-16 11:00] LABS: Microalbum/Creatinine Ratio Ur 28.5 ug/mg cr (<30)
== END 2025-10-16 08:48 | disposition home or self-care (01) ==
LOC: HO.LAB 08:47
PROVIDERS: PCP Internal Medicine; Visit Provider Internal Medicine
DX: E55.9 Vitamin D deficiency, unspecified (principal); E11.9 Type 2 diabetes mellitus without complications; D64.9 Anemia, unspecified; E78.00 Pure hypercholesterolemia, unspecified; R30.0 Dysuria
CPT/HCPCS: 36415; 80053; 80061; 81003; 82043; 82306; 82570; 83036; 84443; 85025

== ENCOUNTER 2025-10-20 13:16 | Outpatient (AMB) | payer OTHER, SELFPAY ==
--- OUTSIDE RECORDS SUMMARY | 2024-05-27 08:30 | XMS_ITS ---
Author Organization [facility] Address [address] [place] [address] Care Team Providers Care Commercial Real Estate Associate Name Role Phone Rizwan SORENSON, Boaz Primary Care Provider Yarely Medina Unavailable [phone] Medications Medication SIG (Take, Route, Frequency, Duration) [...] a day; Duration: 7 days Not-Taking Nystatin 500564 UNIT/GM 1 application Externally Twice a day [...] Active Encounters Encounter Location Date Provider Diagnosis [facility] [address] [address] 05/27/2024 Yarely Gibbs Plan Of Treatment Next Appt Details Provider Name:Yarely puckett, 11/18/2025 01:30:00 PM, [address] [place] [address], [phone], Progress Notes * Alicia DUONGDOB:1945 (80 yo F)Acc No.[id number]:05/27/2024 Progress Note Patient: Alicia ROQUE Provider: Jarad Gibbs DPM :1945 A ge:78 Y S ex:Female Date:05/27/2024 Address:[address] [place], [place] [id number] Pcp:Boaz Astorga MD Subjective: * Chief Complaints: * [...] needed Twice a day , Not-Taking/PRN Nystatin 883901 UNIT/GM Cream 1 application Externally Twice a [...] Generated for Mary Ann baca/Suzy/eTransmitting on: 1 05:11 PM EST History and Physical Notes * HPI (History of Present Illness) Category Sub-Category Detail Notes Category Not es At Risk footcare Pt States Last PCP Visit: Date:: 01/11/20 24
--- OUTSIDE RECORDS SUMMARY | 2024-12-02 09:00 | XMS_ITS ---
Author Organization [facility] Address [address] [facility] [place] [address] Care Team Providers Care Signs Cleaner Name Role Phone Rizwan SORENSON, Boaz Primary Care Provider Yarely Medina Unavailable [phone] Medications Medication SIG (Take, Route, Frequency, Duration) [...] day; Duration: 30 days 06/06/2023 Active Nystatin 957071 UNIT/GM 1 application Externally Twice a day [...] Active Encounters Encounter Location Date Provider Diagnosis [facility] [address] [address] 12/02/2024 Yarely Gibbs Plan Of Treatment Next Appt Details Provider Name:Yarely puckett, 11/18/2025 01:30:00 PM, [address] [place] [address], [phone], Progress Notes * Alicia DUONGDOB:1945 (80 yo F)Acc No.[id number]:12/02/2024 Progress Note Patient: Alicia ROQUE Provider: Jarad Gibbs DPM :1945 A ge:79 Y S ex:Female Date:12/02/2024 Address:[address] [place], [place] [phone] Pcp:Boaz Astorga MD Subjective: * Chief Complaints: [...] needed Twice a day , Not-Taking/PRN Nystatin 541624 UNIT/GM Cream 1 application Externally Twice a [...] 12/02/2024 Generated for Mary Ann Carbone on: 05:10 PM EST History and Physical Notes * HPI (History of Present Illness) Category Sub-Category Detail Notes Category Not es At Risk footcare Pt States Last PCP Visit: Date:: 01/11/20 24
--- OUTSIDE RECORDS SUMMARY | 2025-02-18 06:30 | XMS_ITS ---
Author Organization [facility] Address [address] [place] [address] Care Team Providers Care Sales Representative Name Role Phone Rizwan SORENSON, Boaz Primary Care Provider UnaYarely White Unavailable [phone] Encounters Encounter Location Date Provider Diagnosis [address] [address] 02/18/2025 Yarely Gibbs Plan Of Treatment Next Appt Details Provider Name:Yarely puckett, 11/18/2025 01:30:00 PM, [address] [place], [address], Progress Notes * Alicia DUONGDOB:1945 (80 yo F)Acc No.[id number]:02/18/2025 Progress Note Patient: Alicia ROQUE Provider: Jarad Gibbs DPM :1945 A ge:79 Y S ex:Female Date:02/18/2025 Address:[address] [facility] [facility] [address] [facility] [address], [place], [place] Pcp:Boaz Astorga MD Subjective: * Chief Complaints: [...] Generated for Mary Ann baca/Suzy/Ventura on: 1 05:11 PM EST
--- OUTSIDE RECORDS SUMMARY | 2025-07-07 10:00 | XMS_ITS ---
Author Organization [facility] Address [address] [place] [address] Care Team Providers Care Boiler Inspector Name Role Phone Rizwan SORENSON, Boaz Primary Care Provider UnaYarely White Unavailable [phone] Encounters Encounter Location Date Provider Diagnosis [address] [address] 07/07/2025 Yarely Gibbs Plan Of Treatment Next Appt Details Provider Name:Yarely puckett, 11/18/2025 01:30:00 PM, [address] [place], [address], Progress Notes * Alicia DUONGDOB:1945 (80 yo F)Acc No.[id number]:07/07/2025 Progress Note Patient: Alicia ROQUE Provider: Jarad Gibbs DPM :1945 A ge:79 Y S ex:Female Date:07/07/2025 Address:[address] [facility] [address], [place], [place] Pcp:Boaz Astorga MD Subjective: * Chief Complaints: [...] Generated for Mary Ann baca/Suzy/Ventura on: 1 05:10 PM EST
--- NOTE | 2025-10-20 13:25 | MHC.PC.OV ---
Vital Signs 10/20/25 13:26 Height 4 ft 9 in Weight 144 lb BMI 31.2 BP 126/80 Blood Pressure Location Lt brachial Position Sitting Pulse 63 Pulse Source Pulse Oximeter Pulse Oximetry (%) 99 Oxygen Delivery Method Room Air Intake Visit Reasons: DM, CKD, hyperlipidemia, HTN Business Dean Required: No Accompanied by: Self / Same As Patient Allergies aspirin (Aspirin) Allergy (Severe, Verified 10/25/25 21:47) MOUTH SWELLING Penicillins (PENICILLINS) Allergy (Intermediate, Verified 10/25/25 21:47) ITCHING caffeine (Caffeine) Allergy (Mild, Verified 10/25/25 21:47) NERVOUSNESS lisinopril (Lisinopril) Allergy (Mild, Verified 10/25/25 21:47) CHANGES IN BLOOD PRESSURE ranitidine (RANITIDINE) Allergy (Mild, Verified 10/25/25 21:47) HEADACHE amlodipine (AMLODIPINE) Allergy (Unknown, Verified 10/25/25 21:47) UNKNOWN amoxicillin Allergy (Unknown, Verified 10/25/25 21:47) itching, severe with rash diclofenac Allergy (Unknown, Verified 10/25/25 21:47) Unknown escitalopram Allergy (Unknown, Verified 10/25/25 21:47) abdominal discomfort, drowsiness esomeprazole (Nexium) Allergy (Unknown, Verified 10/25/25 21:47) Unknown isosorbide (ISOSORBIDE) Allergy (Unknown, Verified 10/25/25 21:47) UNKNOWN lidocaine (Lidoderm) Allergy (Unknown, Verified 10/25/25 21:47) weakness mirtazapine Allergy (Unknown, Verified 10/25/25 21:47) Unknown nystatin Allergy (Unknown, Verified 10/25/25 21:47) rash sertraline (SERTRALINE) Allergy (Unknown, Verified 10/25/25 21:47) UNKNOWN dexlansoprazole (From DEXILANT) Adverse Reaction (Severe, Verified 10/25/25 21:47) AGITATION hydrochlorothiazide (Hydrochlorothiazide) Adverse Reaction (Intermediate, Verified 10/25/25 21:47) DROP IN BLOOD PRESSURE hydrocortisone (From Cortizone-10) Adverse Reaction (Mild, Verified 10/25/25 21:47) RAISES BLOOD SUGAR semaglutide (From Ozempic) Adverse Reaction (Mild, Verified 10/25/25 21:47) gerd topiramate (From TOPAMAX) Adverse Reaction (Unknown, Verified 10/25/25 21:47) AGITATION trajenta Allergy (Severe, Uncoded 10/25/25 21:47) numbness From PLAVIX Allergy (Unknown, Uncoded 10/25/25 21:47) PT UNSURE OF REACTION Medical tape Allergy (Unknown, Uncoded 10/25/25 21:47) Rash Medication List - Last Reconciled 10/20/25 by Boaz Astorga MD acetaminophen (Tylenol Extra Strength) 500 mg PO .TWICE A DAY PRN alprazolam 0.5 mg PO BID PRN ammonium lactate 12% topical blood sugar diagnostic (Expanite Ultra Test strips) As directed to test blood sugar three times daily. blood-glucose meter (Expanite Ultra2 Meter) As directed buspirone 7.5 mg PO DAILY carvedilol 6.25 mg PO BID 90 days cholecalciferol (vitamin D3) 50 mcg PO DAILY ciclopirox 0.77% appl topical BID clotrimazole-betamethasone 1-0.05 % 1 appl topical BID PRN compr.stocking,knee,long,large As directed furosemide (Lasix) 20 mg PO QAM PRN [gloves As directed] [incontinent liners As directed] insulin lispro (Humalog KwikPen (U-100) Insulin) subcutaneously 2 times a day; Take 6 units before breakfast and 4 units before dinner. lancets (Majitekuch Delica Plus Lancet) USE FOUR TIMES DAILY methylcellulose (laxative) (Citrucel) 500 mg PO DAILY multivit with min-folic acid 200 mcg (Adult Multivitamin Gummies) 1 tab PO DAILY pantoprazole 40 mg PO DAILY 90 days pen needle, diabetic bid NS propylene glycol 0.6% (Systane Balance) 1 drp ophthalmic (eye) BID PRN rosuvastatin 40 mg PO DAILY 90 days sennosides 17.2 mg (2 x 8.6 mg) PO DAILY spironolactone 25 mg PO BEDTIME Tobacco use date assessed: 10/20/25 Fall risk assessment: No Falls in past year Last assessed Fall Risk: 10/20/25 Dental Screening Dental Screen Date: 10/20/25 Did you have a dental visit in the last 12 months?: No Did you have a dental problem in the last 6 months where you did not have access to dental care?: No Was dental information given to patient?: No HPI DM, CKD, hyperlipidemia, HTN HPI Details - The patient is an 80 year old female presenting for follow-up and management of chronic conditions. - Her hemoglobin A1c was 8.3%, an improvement from 9.0% in May. - Her insulin regimen consists of 6 units before breakfast and 4 units before dinner, and she self-adjusts dose based on a blood glucose level of 120 mg/dL. - She has discontinued Lantus. - She previously tried an unspecified oral medication which she stopped after three days due to side effects including swelling and malaise. - Her blood pressure has been historically high but was well-controlled at today's visit. - She reports non-adherence to a 20 mg Furosemide, which she believes is too strong, and has been taking half a tablet daily - Recent lab works done a few days ago show her kidney function is stable, cholesterol is excellent, and liver enzymes are persistently slightly elevated but stable. - She has experienced some recent weight gain. 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 - She also has a skin wound on her left lower leg for which she recently completed a course of antibiotics. [facility] Medical History Hyperparathyroidism Left bundle branch block Type 2 diabetes mellitus with chronic kidney disease Chronic kidney disease, stage 4 (severe) Type 2 diabetes mellitus Obesity Skin abrasion HARRIET (renal artery stenosis) Nonischemic cardiomyopathy Urinary incontinence GERD (gastroesophageal reflux disease) COVID-19 Pneumonia due to COVID-19 virus Vertigo Obesity (BMI 30-39.9) Depression Anxiety Stasis edema of both lower extremities Cardiomyopathy Pure hypercholesterolemia Hyperkalemia Renal artery stenosis Benign essential hypertension Conjunctival hemorrhage of right eye Surgical History Hx of colonoscopy Hx of myomectomy History of cataract surgery History of lumpectomy of left breast History of cholecystectomy Family History Father CVD (cardiovascular disease) Myocardial infarction Mother Myocardial infarction CVD (cardiovascular disease) Brother Myocardial infarction Family/Other FH: prostate cancer Social History Household Members: None Housing: Apartment Do you presently have visiting nurse or other home services: No Alcohol intake: never Patient Tobacco Use Status: Former Tobacco user Tobacco use type: Cigarette e-Cigarette/Vaping Use: Never Used Second Hand Smoke Exposure: No Advance Directives Date on File: 08/06/21 service: No Current occupational status: disabled Cognitive needs: No Hearing needs: No Vision needs: Yes Questionnaire PHQ-9 Over the last 2 weeks, how often have you been bothered by any of the following problems? 1. Little interest or pleasure in doing things: not at all 2. Feeling down, depressed, or hopeless: several days 3. Trouble falling or staying asleep, or sleeping too much: several days 4. Feeling tired or having little energy: more than half the days 5. Poor appetite or overeating: more than half the days 6. Feeling bad about yourself - or that you are a failure or have let yourself or your family down: not at all 7. Trouble concentrating on things, such as reading the newspaper or watching television: not at all 8. Moving or speaking so slowly that other people could have noticed. Or the opposite - being so fidgety or restless that you have been moving around a lot more than usual: not at all 9. Thoughts that you would be better off or of hurting yourself in some way: not at all Total score: 6 Depression Screening Interpretation: Positive Depression Screening Follow-up: Existing condition and In treatment Depression Screening Done: Yes 25118 - PHQ-9 Billing: Yes Source: Developed by Drs. Kayden Gonzalez, Alka Silver, Harjit Rush and colleagues, with an educational vlad from [employer]. Thrive Questionnaire Date Thrive assessed: 10/20/25 I am a: Patient What is your living situation today?: I have a steady place to live Within the past 12 months, did the food you bought not last and you didn't have the money to get more?: Never true Within the past 12 months, did you worry whether your food would run out before you got money to buy more?: Never true Do you have trouble paying for medicines?: No Do you have trouble getting transportation to medical appointments?: Yes Do you have trouble paying your heating and electricity bill?: No Do you have trouble taking care of your child, family member or friend?: No Do you have trouble with day-to-day activities such as bathing, preparing meals, shopping, managing finances, etc.?: No Are you currently unemployed and looking for a job?: Yes Are you interested in more education?: No Please select the resources that you would like help with: None Currently or been in a relationship where the following occur: No concerns reported THRIVE Score: 1 AUDIT C Alcohol Use Questionnaire (AUDIT-C) 1. How often do you have a drink containing alcohol?: Never 3. How often do you have six or more drinks on one occasion?: Never Total Score: 0 Score Reviewed/Action Taken: Yes VIKRAM-7 AMB Questionnaire VIKRAM-7 Date VIKRAM - 7 assessed: 10/20/25 Feeling nervous, anxious, or on edge: 1 = Several days Not being able to stop or control worryin = Several days Worrying too much about different things: 1 = Several days Trouble relaxin = Several days Being so restless that it is hard to sit still: 1 = Several days Becoming easily annoyed or irritable: 1 = Several days Feeling afraid as if something awful might happen: 1 = Several days Total VIKRAM-7 score (0-4 normal; 5-9 mild; 10-14 moderate; 15-21 severe): 7 Source: Developed by Drs. Kayden Gonzalez, Alka Silver, Harjit Rush and colleagues, with an educational vlad from [employer]. Review of Systems Const Denies chills, Reports fatigue, Denies fever(s) and Denies headache(s) ENT Denies dysphagia, Denies dizziness, Denies otalgia, Denies headache(s), Denies neck pain, Denies odynophagia and Denies sore throat Card Denies chest pain, Denies palpitations and Denies dyspnea Resp Denies chest congestion, Denies cough and Denies dyspnea GI Denies abdominal pain, Denies constipation, Denies dysphagia, Denies heartburn, Denies diarrhea, Denies nausea, Denies odynophagia and Denies vomiting Denies difficulty voiding, Denies nocturia, Denies dysuria, Reports urinary incontinence and Denies urinary urgency Musc Denies back pain and Denies neck pain Skin/Breast Denies rash Neuro Denies dizziness and Denies headache(s) Psych Reports anxiety Endo Reports fatigue and Denies palpitations Physical exam (Primary Care) Vital Signs: Last Vital Signs Pulse 63 10/20/25 13:26 BP 126/80 10/20/25 13:26 Pulse Ox 99 10/20/25 13:26 Oxygen Delivery Method Room Air 10/20/25 13:26 BMI result Body Mass Index 31.2 Tobacco/Smoking Status: Tobacco use Status Tobacco use date assessed 10/20/25 10/20/25 13:32 Patient Tobacco Use Status Former Tobacco user 10/20/25 13:32 Tobacco use type Cigarette 10/20/25 13:32 e-Cigarette/Vaping Use Never Used 10/20/25 13:32 PHQ-9: PHQ-9 Score PHQ-9: Total score 6 10/20/25 14:06 Depression Screening Interpretation: Positive Depression Screening Follow-up: Existing condition and In treatment Thrive Assessment: Date of Thrive Assessment Date Thrive assessed 10/20/25 10/20/25 13:32 Currently or been in a relationship where the following occur: No concerns reported Const General: no acute distress and alert HENMT Throat: Yes posterior oropharynx normal and Yes tonsils normal (no TP congestion noted) Neck Neck: Yes supple and No lymphadenopathy Thyroid: Thyroid normal Resp Auscultation: clear to auscultation bilaterally, no rales and no wheezes Cardio Rate: regular rate Rhythm: regular rhythm Heart sounds: no murmurs GI Palpation (GI): Soft to palpation and nontender Auscultation: normal bowel sounds General: Yes no CVA tenderness Back/Spine/Pelvis Back: no CVA tenderness Thoracic/Lumbar Spine: No lumbar spinal tenderness Skin Rashes: no rashes Extrem General: No clubbing, No cyanosis and Yes edema (1+bipedal edema) Results Reviewed Results Reviewed: Laboratory Tests 09/25/25 10/06/25 10/16/25 13:11 14:01 09:16 WBC 5.5 Hgb 11.9 L Hct 37.1 Plt Count 190 Sodium 136 Potassium 4.7 Creatinine 2.36 H Estimated GFR 20 Fasting Glucose 119 H Hgb A1c (Clinic) 8.3 H Hemoglobin A1c % 8.3 H Calcium 9.8 AST 42 H ALT 33 H Triglycerides 65 Cholesterol 135 LDL Cholesterol, Calc 70 HDL Cholesterol 52 25-OH Vitamin D Total 55.2 TSH 2.82 PTH Intact 167.1 H Ur Specific [place] Urine Protein Urine Glucose (UA) Urine Blood Urine Nitrite Ur Leukocyte Esterase Microalb/Creat Ratio 10/16/ Unknown WBC Hgb Hct Plt Count Sodium Potassium Creatinine Estimated GFR Fasting Glucose Hgb A1c (Clinic) Hemoglobin A1c % Calcium AST ALT Triglycerides Cholesterol LDL Cholesterol, Calc HDL Cholesterol 25-OH Vitamin D Total TSH PTH Intact Ur Specific [place] <= 1.005 Urine Protein Negative Urine Glucose (UA) Negative Urine Blood Negative Urine Nitrite Negative Ur Leukocyte Esterase Negative Microalb/Creat Ratio 28.5 Coding Level of Care Code Est Pt Level 4 (63742) Diagnoses Benign essential hypertension I10 Cardiomyopathy, unspecified type I42.9 Cardiomyopathy type: unspecified Renal artery stenosis I70.1 Chronic kidney disease, stage 4 (severe) N18.4 Hyperparathyroidism E21.3 Type 2 diabetes mellitus with stage 4 chronic kidney disease, without long-term current use of insulin E11.22; N18.4 Chronic kidney disease stage: stage 4 (severe) 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 termite renewal inspector insulin use: without termite renewal inspector use Pure hypercholesterolemia E78.00 Elevated TSH R79.89 Gastroesophageal reflux disease, unspecified whether esophagitis present K21.9 Esophagitis presence: esophagitis presence not specified Anxiety F41.9 Depression, unspecified depression type F32.9 Depression Type: unspecified Obesity (BMI 30-39.9) E66.9 Additional Codes PHQ-9 - 24897 - PHQ-9 Billing: Yes ([id number]) Assessment & Plan Assessment & Plan (1) Benign essential hypertension: Code(s): I10 - Essential (primary) hypertension Category: Medical Plan: Reinforced low sodium diet - goal is systolic BP of at least 130 to 140 mm or less Continue Carvedilol 6.25 mg BID and Spironolactone 25 mg Q HS; she is also on Furosemide 20 mg QD but patient admits to only taking 1/2 tablet of this daily as she finds 20 mg daily to be 'too strong' for her Her Losartan was discontinued previously and she has been advised NOT to start back on this due to her advanced CKD Follow up with cardiology as scheduled (2) Cardiomyopathy: Code(s): I42.9 - Cardiomyopathy, unspecified Category: Medical Qualifiers: Cardiomyopathy type: unspecified Qualified Code(s): I42.9 - Cardiomyopathy, unspecified Plan: Continue Carvedilol 6.25 mg BID Patient had a stress test and nuclear MIBI done at [facility] a couple of years ago - both tests came back normal BNP also came back normal when previously checked Follow up with cardiology as scheduled (3) Renal artery stenosis: Comment: NO HARRIET Code(s): I70.1 - Atherosclerosis of renal artery Category: Medical Plan: She has left HARRIET (seen on renal artery doppler) and will be considered for renal angioplasty if necessary, although a more recent renal US done in May 2024 revealed no HARRIET Her BP appears to have improved a lot with the addition of Spironolactone Will continue to observe and monitor her blood pressure regularly for now Follow up with nephrology (Dr. Madrigal) as scheduled (4) Chronic kidney disease, stage 4 (severe): Code(s): N18.4 - Chronic kidney disease, stage 4 (severe) Category: Medical Plan: Patient's serum creatinine and GFR/renal function again appear mostly stable on her recent labs - will continue to monitor her GFR and serum creatinine closely Follow up with nephrology (Dr. Madrigal) as scheduled - nephrology has recommended adding an SGLT-2 inhibitor when appropriate; Metformin has since been discontinued Patient used to see [facility] but has now been switched over to [facility] for management of her diabetes for better continuity of care as we were having a hard time getting her reports from [facility] in a timely manner before (5) Hyperparathyroidism: Code(s): E21.3 - Hyperparathyroidism, unspecified Category: Medical Plan: Her intact PTH level was significantly elevated at 167.1 pg/ml on her recent labs Follow up with nephrology as scheduled (6) Type 2 diabetes mellitus with chronic kidney disease: Code(s): E11.22 - Type 2 diabetes mellitus with diabetic chronic kidney disease Category: Medical Qualifiers: Chronic kidney disease stage: stage 4 (severe) 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 prison insulin use: without termite renewal inspector use Qualified Code(s): E11.22 - Type 2 diabetes mellitus with diabetic chronic kidney disease; N18.4 - Chronic kidney disease, stage 4 (severe) Plan: Her HgbA1c was at 8.3% on her labs done a few days ago (was previously at 9.0% a few months ago) - goal is at least <7.5% Reinforced diabetic diet Continue Tradjenta 5 mg QD, Acarbose 25 mg QD and Lantus 6 units Q HS Her Metformin ER 500 mg QD has been discontinued due to her advanced CKD; Glimepiride 1 mg Q AM and Januvia were also previously stopped due to hypoglycemia She was also taken off Ozempic as she was reportedly losing too much weight while on the medication Nephrology recommended adding an SGLT-2 inhibitor and will consider starting patient on this at her next follow up visit if appropriate Follow up with [facility] Endocr[facility]ology as scheduled (7) Pure hypercholesterolemia: Code(s): E78.00 - Pure hypercholesterolemia, unspecified Category: Medical Plan: Results of her labs done a few days ago reviewed and discussed with patient Reinforced low cholesterol diet Continue Rosuvastatin 40 mg QD Will recheck her labs and fasting lipids in 3 months for follow up (8) Elevated TSH: Code(s): R79.89 - Other specified abnormal findings of blood chemistry Category: Medical Plan: Her TSH remains normal on her recent labs Her free T4 and T3 levels were normal and TPO Ab level was high when previously checked, suggesting possible Pb's Patient currently appears clinically euthyroid Will continue to monitor her TFTs regularly (9) GERD (gastroesophageal reflux disease): Code(s): K21.9 - Gastro-esophageal reflux disease without esophagitis Category: Medical Qualifiers: Esophagitis presence: esophagitis presence not specified Qualified Code(s): K21.9 - Gastro-esophageal reflux disease without esophagitis Plan: Dietary restrictions reinforced Continue Pantoprazole 20 mg QD - dose was lowered by GI recently Follow up with GI as scheduled (10) Anxiety: Code(s): F41.9 - Anxiety disorder, unspecified Category: Medical Plan: Continue Buspirone 7.5 mg QD and Alprazolam 0.5 mg BID PRN Follow up with psychiatry as scheduled (11) Depression: Code(s): F32.9 - Major depressive disorder, single episode, unspecified Category: Medical Qualifiers: Depression Type: unspecified Qualified Code(s): F32.9 - Major depressive disorder, single episode, unspecified Plan: Follow up with psychiatry as scheduled - patient goes to [facility] (12) Obesity (BMI 30-39.9): Code(s): E66.9 - Obesity, unspecified Category: Medical Plan: Reinforced diet; exercise and weight loss are unrealistic given patient's multiple comorbidities and limited activity tolerance as well as her gait instability Plan Follow up in 3 months Orders: Orders Complete Blood Count Auto Diff 3 Months D64.9 - Anemia, unspecified Microalbumin, Random (w Creat) 3 Months E11.9 - Type 2 diabetes mellitus without complications NT Pro B Type Natriuretic Pept 3 Months R06.09 - Other forms of dyspnea Comprehensive [place]. Panel Fast 3 Months E78.00 - Pure hypercholesterolemia, unspecified Lipid Panel 3 Months E78.00 - Pure hypercholesterolemia, unspecified Hemoglobin A1c 3 Months E11.9 - Type 2 diabetes mellitus without complications TSH reflex Free T4 3 Months E78.00 - Pure hypercholesterolemia, unspecified UA CC w/rflx Micro + Cult 3 Months R30.0 - Dysuria Vitamin D 25-OH Total 3 Months E55.9 - Vitamin D deficiency, unspecified Vitamin B12 and Folate 3 Months E53.8 - Deficiency of other specified B group vitamins Medications: New [CONCENTRATED BETADINE MEDICATED DOUCHE] As directed 100 ea 5RF
[2025-10-20 13:26] VITALS: BP 126/80; PULSE 63; O2SAT 99; BMI 31.2
--- OUTSIDE RECORDS SUMMARY | 2025-10-20 17:11 | XMS_ITS | Patient Health Record ---
[facility] Address [address] [place] [address] Care Team Providers Care Certified Orthoptist Name Role Phone Robel Astorga MDh Primary Care Provider Yarely Medina Unavailable [phone] Allergies Allergen (clinical drug ingredient) Drug/Non Drug [...] Referring Provider Last Name Rizwan Referred [facility] Referred Provider Yarely Gibbs Referred Address [address] [place], [place],[address], Referred Provider Specialty Podiatry Referral Priority Routine [...] a day; Duration: 7 days Not-Taking Nystatin 350950 UNIT/GM 1 application Externally Twice a day [...] Problem Acquired hammer toe of right foot ([id number] 05) Other hammer toe(s) (acquired), right foot (M20.41) Active confirmed Problem Type 2 diabetes mellitus with peripheral angiopathy (058146055) Type 2 diabetes mellitus with diabetic peripheral angiopathy without gangrene (E11.51) Active confirmed Problem Acquired hammer toe of left foot ([id number] 03) Other hammer toe(s) (acquired), left foot (M20.42) Active confirmed Vital Signs Blood pressure diastolic 70 mm Hg 08/18/2025 Height 5 ft in 08/18/2025 Blood pressure systolic 140 mm Hg 08/18/2025 Weight 135 lbs 08/18/2025 BMI 26.36 kg/m2 08/18/2025 Encounters Encounter Location Date Provider Diagnosis [address] [address] 01/21/2025 Yarely Gibbs Tinea pedis of both feet B35.3 ; Other hammer toe(s) (acquired), right foot M20.41 ; Type 2 diabetes mellitus with diabetic peripheral angiopathy without gangrene E11.51 ; Tinea unguium B35.1 ; Pain in left toe(s) M79.675 ; Pain in right toe(s) M79.674 ; Xerosis cutis L85.3 and Other hammer toe(s) (acquired), left foot M20.[address] [address] 04/14/2025 Yarely Gibbs Type 2 diabetes mellitus with diabetic peripheral angiopathy without gangrene E11.51 ; Tinea unguium B35.1 ; Pain in left toe(s) M79.675 and Pain in right toe(s) M79.[address] [address] 08/18/2025 Yarely Gibbs Type 2 diabetes mellitus with diabetic peripheral angiopathy without gangrene E11.51 ; Tinea unguium B35.1 ; Pain in left toe(s) M79.675 and Pain in right toe(s) M79.674 [facility] [address] [address] 12/02/2024 Yarely Perica [facility] [address] [address] 01/21/2025 Yarely Perica [facility] [address] [address] 07/07/2025 Yarely Perica [facility] [address] [address] 07/16/2025 Yarely Perica [facility] [address] [address] 09/29/2025 Yarely Gibbs [facility] Encounter Date Diagnosis (ICD Code) [...] Details Provider Name:Yarely puckett, 11/18/2025 01:30:00 PM, [address] [place] [address], [id number], Insurance Providers Payer Name Payer Address Payer Phone Subscriber Number Group Number Insured Name Patient Relationship to Insured Coverage Start Date Coverage End Date [facility] [address] [place] [phone] [id number] Alicia Noel Self - patient is the [...]
--- OUTSIDE RECORDS SUMMARY | 2025-10-20 17:11 | XMS_ITS | Clinical Summary ---
Author Organization [facility] Address [address] [place] [address] Phone Care Team Providers Care Carpenter Helper Name Role Phone Boaz Astorga MD Primary Care Provider [phone] Allergies Active Allergy Reactions Criticality Noted Date [...] patient's age to complete this topic Insurance [employer] [facility] ([id number]) [employer] [facility] ([id number]) Care Teams Carpenter Helper Relationship Specialty Start Date End Date Boaz Astorga MD [address] [place] [address] PCP - General 11/01/20
== END 2025-10-20 14:27 | disposition home or self-care (01) ==
LOC: HO.HMCH 13:17
PROVIDERS: PCP Internal Medicine; Visit Provider Internal Medicine
DX: I12.9 Hypertensive chronic kidney disease with stage 1 through stage 4 chronic kidney disease, or unspecified chronic kidney disease (principal); N18.4 Chronic kidney disease, stage 4 (severe); I42.9 Cardiomyopathy, unspecified; E11.22 Type 2 diabetes mellitus with diabetic chronic kidney disease; F32.9 Major depressive disorder, single episode, unspecified; I70.1 Atherosclerosis of renal artery; E21.3 Hyperparathyroidism, unspecified; E78.00 Pure hypercholesterolemia, unspecified; R79.89 Other specified abnormal findings of blood chemistry; K21.9 Gastro-esophageal reflux disease without esophagitis; F41.9 Anxiety disorder, unspecified; E66.9 Obesity, unspecified

== ENCOUNTER → 2025-10-20 13:16 | Outpatient (BNVA) | payer OTHER, SELFPAY | PROVIDERS: PCP Internal Medicine; Visit Provider Internal Medicine | DX: E11.22 Type 2 diabetes mellitus with diabetic chronic kidney disease (principal); I12.9 Hypertensive chronic kidney disease with stage 1 through stage 4 chronic kidney disease, or unspecified chronic kidney disease; N18.4 Chronic kidney disease, stage 4 (severe); I42.9 Cardiomyopathy, unspecified; I70.1 Atherosclerosis of renal artery; E21.3 Hyperparathyroidism, unspecified; E78.00 Pure hypercholesterolemia, unspecified; R79.89 Other specified abnormal findings of blood chemistry; K21.9 Gastro-esophageal reflux disease without esophagitis; F41.9 Anxiety disorder, unspecified; F32.9 Major depressive disorder, single episode, unspecified; E66.9 Obesity, unspecified; Z79.4 Long term (current) use of insulin; Z68.31 Body mass index [BMI] 31.0-31.9, adult | CPT/HCPCS: 96127; 99212 ==